=== PATIENT | female | born 1950 | race Caucasian/White ===

== ENCOUNTER 2022-10-21 09:09 | Outpatient (OUT) | payer MEDICARE, OTHER, SELFPAY ==
--- NOTE | 2022-10-21 09:16 | MM_ITS ---
Patient: JOSS WASHINGTON Exam Date: 10/21/2022 : 1950 Gender:F Ordering : DR Paolo Rai . Admission #: [id number] Family : Order #: [id number] CLICK HERE TO VIEW EXAM RADIOLOGY REPORT PROCEDURE: MM TOMOSYNTHESIS DIAGNOSTIC LT, 10/21/2022, 09:14 US BREAST LT LIMITED, 10/21/2022, 10:10 COMPARISON: [facility] DIAG W CAD, 02/08/2022. [facility] MAMM [facility] DIAG W CAD, 02/07/2021. INDICATIONS: Breast pain N64.4 Calculator Name NCI Breast Cancer Risk Assessment Tool 5 Year Breast Cancer Risk n/a% Lifetime Breast Cancer Risk n/a% Personal Breast Cancer Yes, Right lumpectomy with radiation age 66 Personal Ovarian Cancer No Treatments lumpectomy and radiation riht breast Family Cancers Mother with breast cancer at age 52; Sister with breast cancer at age 68; Sister with lung& brain cancer at age 68. LOCATION: [facility] BREAST COMPOSITION: Scattered areas fibroglandular density. FINDINGS: DIAGNOSTIC CATEGORY 2--BENIGN FINDING: LEFT BREAST: Stable 3 mm nodule versus cyst within lower-outer quadrant. No mass or architectural distortion. Ultrasound evaluation demonstrates a 3 mm benign-appearing cyst at the 4 o'clock position. No suspicious findings. RECOMMENDATIONS: ROUTINE MAMMOGRAM AND CLINICAL EVALUATION IN 12 MONTHS. PLEASE NOTE: A NORMAL MAMMOGRAM DOES NOT EXCLUDE THE POSSIBILITY OF BREAST CANCER. A CLINICALLY SUSPICIOUS PALPABLE LUMP SHOULD BE BIOPSIED. Dictated by: Brandon Lima M.D. on 10/21/2022 at 10:56 Approved by: Brandon Lima M.D. on 10/21/2022 at 11:08
== END 2022-10-21 09:10 | disposition home or self-care (01) ==
LOC: MAMMO 09:13
PROVIDERS: PCP Family Medicine; Visit Provider Family Medicine
DX: N64.4 Mastodynia (principal); Z85.3 Personal history of malignant neoplasm of breast; Z92.3 Personal history of irradiation; Z98.890 Other specified postprocedural states; Z80.3 Family history of malignant neoplasm of breast; N60.02 Solitary cyst of left breast
CPT/HCPCS: 76642; 77065; G0279

== ENCOUNTER 2023-03-28 08:11 | Outpatient (OUT) | payer MEDICARE, OTHER, SELFPAY ==
[2023-03-28 08:44] LABS: Basophils Percent Auto 0.4 % (0.2-2.0); Eosinophils Absolute Auto 0.2 10^3/uL (0.0-0.7); Eosinophils Percent Auto 3.2 % (0.9-7.0); Hemoglobin 12.6 g/dL (12.0-16.0); Immature Granulocytes Abs Auto 0.03 10^3/uL (0.00-0.03); Immature Granulocytes Pct Auto 0.4 % (0.0-0.5); Lymphocytes Absolute Auto 1.6 10^3/uL (1.2-3.8); Lymphocytes Percent Auto 22.7 % (20.5-60.0); Mean Corpuscular HGB Conc 30.7 g/dL (29.9-35.2); Mean Corpuscular Hemoglobin 29.2 pg (26.7-34.0); Mean Corpuscular Volume 95.1 fL (81.0-99.0); Mean Platelet Volume 9.2 fL (9.5-13.5); Monocytes Absolute Auto 0.4 10^3/uL (0.3-0.8); Monocytes Percent Auto 5.1 % (1.7-12.0); Neutrophils Absolute Auto 4.6 10^3/uL (1.4-6.5); Neutrophils Percent Auto 68.2 % (43.0-75.0); Platelet Count 292 10^3/uL (150-450); Red Blood Count 4.31 10^6/uL (4.20-5.40); Red Cell Distribution Width 14.3 % (11.0-15.0); White Blood Count 6.8 10^3/uL (4.0-11.0)
[2023-03-28 10:01] LABS: Estimated Average Glucose 134 mg/dL; Glycohemoglobin A1C 6.3 % (4.5-6.2)
[2023-03-28 10:57] LABS: Alanine Aminotransferase 13 U/L (14-59); Albumin Globulin Ratio 0.7; Albumin Level 3.1 g/dL (3.4-5.0); Alkaline Phosphatase 141 U/L (46-116); Anion Gap 10.8; Aspartate Amino Transferase 12 U/L (15-37); Bilirubin Total 0.4 mg/dL (0.2-1.0); Calcium 9.9 mg/dL (8.5-10.1); Carbon Dioxide 31.6 mmol/L (21.0-32.0); Chloride 106 mmol/L (98-107); Chol HDL Ratio 3.4; Cholesterol 269 mg/dL (<=200); Estimated GFR (African America >60 (>=60); Estimated GFR (Non-African Ame 55 (>=60); Free T3 2.25 pg/mL (2.18-3.98); Globulin 4.5 g/dL; Glucose 116 mg/dL (74-106); HDL Cholesterol 80 mg/dL (40-60); Potassium 4.4 mmol/L (3.5-5.1); Sodium 144 mmol/L (136-145); Thyroid Stimulating Hormone 3.864 uIU/mL (0.358-3.740); Total Protein 7.6 g/dL (6.4-8.2); Triglycerides 134 mg/dL (<=150); VLDL CHOLESTEROL 26.8 mg/dL
[2023-03-28 11:50] LABS: Free T4 0.78 ng/dL (0.76-1.46)
[2023-03-29 10:52] LABS: Occult Blood Negative
== END 2023-03-28 08:12 | disposition home or self-care (01) ==
LOC: LAB 08:13
PROVIDERS: PCP Family Medicine; Visit Provider Family Medicine
DX: D64.9 Anemia, unspecified (principal); Z79.899 Other long term (current) drug therapy; R73.09 Other abnormal glucose; E78.5 Hyperlipidemia, unspecified; E03.9 Hypothyroidism, unspecified; Z12.12 Encounter for screening for malignant neoplasm of rectum; E55.9 Vitamin D deficiency, unspecified
CPT/HCPCS: 36415; 80053; 80061; 82306; 83036; 84439; 84443; 84481; 85025; G0328

== ENCOUNTER 2023-10-24 06:58 | Outpatient (OUT) | payer MEDICARE, OTHER, SELFPAY ==
--- NOTE | 2023-10-24 07:00 | MM_ITS ---
Patient Name: JOSS WASHINGTON MR#: [id number] : 1950 Exam Date: 10/24/2023 Ordering Doctor: DR Paolo Rai . RADIOLOGY REPORT PROCEDURE: MM TOMOSYNTHESIS SCREENING BI COMPARISON: MM TOMOSYNTHESIS DIAGNOSTIC LT, 10/21/2022. MG MAMM ABHAY DIAG W CAD, 02/08/2022. MG MAMM ABHAY DIAG W CAD, 02/07/2021. MG MAMM DX 3D RT CAD, 08/14/2020. INDICATIONS: Screening Calculator Name NCI Breast Cancer Risk Assessment Tool 5 Year Breast Cancer Risk n/a% Lifetime Breast Cancer Risk n/a% Personal Breast Cancer Yes, Right lumpectomy with radiation age 66 Personal Ovarian Cancer No Treatments lumpectomy and radiation riht breast Family Cancers Mother with breast cancer at age 52; Sister with breast cancer at age 68; Sister with lung& brain cancer at age 68. LOCATION: [facility] BREAST COMPOSITION: There are scattered areas of fibroglandular density. FINDINGS: DIAGNOSTIC CATEGORY 2--BENIGN FINDING: RIGHT BREAST: No significant suspicious finding. Scattered benign-appearing calcifications are present. No significant change has occurred. LEFT BREAST: No significant suspicious finding. Scattered benign-appearing nodules are present. No significant change has occurred. RECOMMENDATIONS: ROUTINE MAMMOGRAM AND CLINICAL EVALUATION IN 12 MONTHS. PLEASE NOTE: A NORMAL MAMMOGRAM DOES NOT EXCLUDE THE POSSIBILITY OF BREAST CANCER. A CLINICALLY SUSPICIOUS PALPABLE LUMP SHOULD BE BIOPSIED. Dictated by: Brandon Lima M.D. on 10/24/2023 at 14:08 Approved by: Brandon Lima M.D. on 10/24/2023 at 14:11
--- OUTSIDE RECORDS SUMMARY | 2023-10-24 07:00 | XMS_ITS | CCD ---
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 Name Role Phone KATHERINE DOWNS Attending Unavailable GEREMIAS BERMAN Referring Unavail able CRONIN, KHALID R Attending Unavailable KATHERINE DOWNS Referring Unavailable CRONIN, KHALID R Attending Unavailable CRONIN, KHALID R Referring Unavailable SHANIQUA, JEM Attending Unavailable SHANIQUA, JEM Referring Unavailable SHANIQUA, JEM Attending Unavailable CRONIN, KHALID R Attending Unavailable CRONIN, KHALID R Referring Unavailable CRONIN, KHALID R Referring Unavailable SHANIQUA, JEM Attending Unavailable CRONIN, KHALID R Attending Unavailable CRONIN, KHALID R Referring Unavailable CRONIN, KHALID R Attending Unavailable CRONIN, KHALID R Attending Unavailable CRONIN, KHALID R Attending Unavailable CRONIN, KHALID R Attending Unavailable CRONIN, KHALID R Attending Unavailable CRONIN, KHALID R Attending Unavailable CRONIN, KHALID R Referring Unavailable CRONIN, KHALID R Attending Unavailable CRONIN, KHALID R Referring Unavailable LISA WILLAMS ([facility]) Attending Unavailabl e CRONIN, KHALID R Referring Unavailable CRONIN, KHALID R Attending Unavailable LAWRENCE RAI Referring Unavailable CRONIN, ALINALID R Attending Unavailable LAWRENCE RAI Referring Unavailable BETY, DR BRAVO Primary Care Unavailable BETY, DR BRAVO Admitting Unavailable HOY, DR BRAVO Attending Unavailable HOY, DR BRAVO Consulting Unavailable Libia Gibbs Consulting Unavailable BETY, DR BRAVO Admitting Unavailable BETY, DR BRAVO Attending Unavailable BETY, DR BRAVO Consulting Unavailable BETY, DR BRAVO Primary Care Unavailable Zieblm, DR Taylor Consulting Unavailable BETY, DR BRAVO Admitting Unavailable HOY, DR BRAVO Attending Unavailable DR LAWRENCE RAI Consulting Unavailable DR LAWRENCE RAI Primary Care Unavailable DR LAWRENCE RAI Admitting Unavailable DR LAWRENCE RAI Attending Unavailable BETY, DR BRAVO Primary Care Unavailable Problems Active Problems Problem Classification Problem Date Documented Da te Episodic/Chronic Cancer of breast (5 sources) Intraductal carcinoma in situ of right breast; Translations: [Intraductal carcinoma in situ of right breast] Onset: 08-14-2017 Chronic Diabetes mellitus without complication (1 source) Type 2 diabetes mellitus without complications; Translations: [TYPE 2 DM WITHOUT COMPLICATIONS] Onset: 12-04-2021 Chronic Essential hypertension (1 source) Essential (primary) hypertension; Translations: [ESSENTIAL PRIMARY HYPERTENSION] Onset: 12-04-2021 Chronic Other connective tissue disease (4 sources) Impingement syndrome of left shoulder; Translations: [IMPINGEMENT SYNDROME LEFT SHOULDER] Onset: 03-16-2022 Episodic Other nutritional; endocrine; and metabolic disorders (1 source) Morbid (severe) obesity due to excess calories; Translations: [MORBID SEVERE OBES D/T EXCESS ARIAS] Onset: 12-04-2021 Chronic Residual codes; unclassified (1 source) Family history of malignant neoplasm of breast; Translations: [FAMILY HX MALIG NEOPLASM OF BREAST] Onset: 02-11-2022 Episodic Residual codes; unclassified (1 source) Family history of malignant neoplasm of trachea, bronchus and lung; Translations: [FAM HX MALIG NEOPLSM TRACH BRON LNG] Onset: 02-11-2022 Episodic Residual codes; unclassified (1 source) Family history of malignant neoplasm of other organs or systems; Translations: [FAM HX MALIG NEOPLASM OTH ORGN/SYS] Onset: 02-11-2022 Episodic Past or Other Problems Problem Classification Problem Date Documented Da te Episodic/Chronic Deficiency and other anemia (1 source) Anemia, unspecified; Translations: [ANEMIA UNSPECIFIED] Onset: 12-04-2021 Episodic Diabetes mellitus without complication (1 source) Other abnormal glucose; Translations: [OTHER ABNORMAL GLUCOSE] Onset: 12-04-2021 Episodic Other nutritional; endocrine; and metabolic disorders (4 sources) Overweight; Translations: [OVERWEIGHT] Onset: 11-30-2021 Episodic Results Test Name Value Interpretation Reference Range Facility XR SHOULDER LT 2V or >on 12- 18-2022 XR SHOULDER LT 2V or > EXAM: Shoulder. HISTORY: . Impingement syndrome of shoulder region . COMPARISON: None. TECHNIQUE: 3 views FINDINGS: No fracture or dislocation of the left shoulder is noted. Glenohumeral joint is unremarkable. Early arthritic changes of the left acromioclavicular joint are noted. Surrounding soft tissues are unremarkable. IMPRESSION: 1. No acute normality of left shoulder. 2. Early arthritic changes of the left acromioclavicular joint. Electronically authenticated by: LIBIA GIBBS Date: 2022-03-17 13:[address] [facility] MG MAMM ABHAY DIAG W CADon MG MAMM ABHAY DIAG W CAD Patient: JOSS WASHINGTON Exam Date: 02/08/2022 : 1950 Gender:F Ordering : DR LAWRENCE RAI . Admission #: [id number] Family : Order #: [id number] CLICK HERE TO VIEW EXAM RADIOLOGY REPORT PROCEDURE: MAMMOGRAM BILATERAL DIAGNOSTIC DIGITAL WITH COMPUTER AIDED DETECTION COMPARISON: MG MAMM DX 3D RT CAD, 08/14/2020. MAMMO POST BIOPSY RIGHT, 02/14/2020. MG MAMM SCREEN ABHAY W CAD, 06/06/2017. MG MAMM ABHAY DIAG W CAD, 02/07/2021. INDICATIONS: Primary malignant neoplasm of female right breast Calculator Name NCI Breast Cancer Risk Assessment Tool 5 Year Breast Cancer Risk n/a% Lifetime Breast Cancer Risk n/a% Personal Breast Cancer Yes, Right lumpectomy with radiation age 66 Personal Ovarian Cancer No Treatments lumpectomy and radiation riht breast Family Cancers Mother with breast cancer at age 52; Sister with breast cancer at age 68; Sister with lungAND brain cancer at age 68. LOCATION: [facility] BREAST COMPOSITION: Scattered areas fibroglandular density. FINDINGS: DIAGNOSTIC CATEGORY 2--BENIGN FINDING: RIGHT BREAST: No significant suspicious finding. Stable previously biopsied lesion and biopsy changes within upper inner quadrant. Scattered benign-appearing calcifications are present. No significant change has occurred. LEFT BREAST: No significant suspicious finding. No significant change has occurred. RECOMMENDATIONS: ROUTINE MAMMOGRAM AND CLINICAL EVALUATION IN 12 MONTHS. PLEASE NOTE: A NORMAL MAMMOGRAM DOES NOT EXCLUDE THE POSSIBILITY OF BREAST CANCER. A CLINICALLY SUSPICIOUS PALPABLE LUMP SHOULD BE BIOPSIED. Dictated by: Brandon Lima M.D. on 02/08/2022 at 08:43 Approved by: Brandon Lima M.D. on 02/08/2022 at 08:46 Normal [facility] T4, T3U, FTI LABCORPon 12-01 Free Thyroxine Index 1.7 Normal 1.2-4.9 [facility] Comment on above: Performed By: #### T HYLC #### [facility] [address] [place] [address] Dr. Sheldon Cordero T3 Uptake 27 % Normal 24-[address] [facility] Comment on above: Performed By: #### T HYLC #### [facility] [address] [place] [address] Dr. Sheldon Cordero T4 [Mass/Vol] 6.4 ug/dL Normal 4.5-12.0 [facility] Comment on above: Performed By: #### T HYLC #### [facility] [address] [place] [address] Dr. Sheldon Cordero CBC AUTO DIFFon 11-30-2021 BASO # 0.1 103/ul Normal 0.0-0.1 [facility] Comment on above: Performed By: #### C BC #### [facility] [address] [place] [address] Dr. Sheldon Cordero Basophils/100 WBC (Bld) 0.8 % Normal 0.2-2.0 [facility] Comment on above: Performed By: #### C BC #### [facility] [address] [place] [address] Dr. Sheldon Cordero EO # 0.3 103/ul Normal 0.0-0.7 [facility] Comment on above: Performed By: #### C BC #### [facility] [address] [place] [address] Dr. Sheldon Cordero Eosinophils/100 WBC (Bld) 3.8 % Normal 0.9-7.0 [facility] Comment on above: Performed By: #### C BC #### [facility] [address] [place] [address] Dr. Sheldon Cordero Erythrocyte distribution width (RBC) [Ratio] 14.6 % Normal 11.0-15.0 [facility] Comment on above: Performed By: #### C BC #### [facility] [address] [place] [address] Dr. Sheldon Cordero Hematocrit (Bld) [Volume fraction] 39.3 % Normal 36.0-48.0 [facility] Comment on above: Performed By: #### C BC #### [facility] [address] [place] [address] Dr. Sheldon Cordero Hemoglobin (Bld) [Mass/Vol] 12.4 g/dL Normal 12.0-16.0 [facility] Comment on above: Performed By: #### C BC #### [facility] [address] [place] [address] Dr. Sheldon Cordero IG # 0.08 10e3/ul Critically high 0.00-0.03 [facility] Comment on above: Performed By: #### C BC #### [facility] [address] [place] [address] Dr. Sheldon Cordero IG % 1.1 % Critically high 0.0-0.5 [facility] Comment on above: Performed By: #### C BC #### [facility] [address] [place] [address] Dr. Sheldon Cordero LYMPH # 1.8 103/ul Normal 1.2-3.8 [facility] Comment on above: Performed By: #### C BC #### [facility] [address] [place] [address] Dr. Sheldon Cordero Lymphocytes/100 WBC (Bld) 25.1 % Normal 20.5-60.0 [facility] Comment on above: Performed By: #### C BC #### [facility] [address] [place] [address] Dr. Sheldon Cordero MANUAL DIFF REQ NO Normal [facility] Comment on above: Performed By: #### C BC #### [facility] [address] [place] [address] Dr. Sheldon Cordero MCH (RBC) [Entitic mass] 29.6 pg Normal 26.7-34.0 [facility] Comment on above: Performed By: #### C BC #### [facility] [address] [address] [address] Sheldon Cordero MCHC (RBC) [Mass/Vol] 31.6 g/dL Normal 29.9-35.2 [facility] Comment on above: Performed By: #### C BC #### [facility] [address] [address] [address] Sheldon Cordero MCV (RBC) [Entitic vol] 93.8 fL Normal 81.0-99.0 [facility] Comment on above: Performed By: #### C BC #### [facility] [address] [address] [address] Sheldon Cordero MONO # 0.4 103/ul Normal 0.3-0.8 [facility] Comment on above: Performed By: #### C BC #### [facility] [address] [address] [address] Sheldon Cordero Monocytes/100 WBC (Bld) 5.8 % Normal 1.7-12.0 [facility] Comment on above: Performed By: #### C BC #### [facility] [address] [address] [address] Sheldon Cordero NEUT # 4.6 103/ul Normal 1.4-6.5 [facility] Comment on above: Performed By: #### C BC #### [facility] [address] [address] [address] Sheldon Cordero Neutrophils/100 WBC (Bld) 63.4 % Normal 43.0-75.[address] [facility] Comment on above: Performed By: #### C BC #### [facility] [address] [address] [address] Sheldon Cordero Platelet mean volume (Bld) [Entitic vol] 8.9 fL Critically low 9.5-13.5 [facility] Comment on above: Performed By: #### C BC #### [facility] [address] [address] [address] Sheldon Cordero PLT 277 103/ul Normal 150-[address] [facility] Comment on above: Performed By: #### C BC #### [facility] [address] [address] [address] Sheldon Cordero RBC 4.19 106/ul Critically low 4.20-5.40 [facility] Comment on above: Performed By: #### C BC #### [facility] [address] [place] [address] Dr. Sheldon Cordero WBC 7.2 103/ul Normal 4.0-11.0 [facility] Comment on above: Performed By: #### C BC #### [facility] [address] [place] [address] Dr. Sheldon Cordero GLYCOHEMOGLOBIN A1Con 2021 ADA RECOMMENDATION SEE BELOW Normal [facility] Comment on above: Result Comment: ADA RECOMMENDED LIMIT 4.0 - 6.0 ADA THERAPEUTIC TARGET < 7.0 ACTION SUGGESTED > 7.0 Performed By: #### A 1C #### [facility] [address] [place] [address] Dr. Sheldon Cordero Glucose [Mass/Vol] 128 mg/dL Normal [facility] Comment on above: Performed By: #### A 1C #### [facility] [address] [place] [address] Dr. Sheldon Cordero HbA1c (Bld) [Mass fraction] 6.1 % Normal 4.5-6.2 [facility] Comment on above: Performed By: #### A 1C #### [facility] [address] [place] [address] Dr. Sheldon Cordero IRONon 11-30-2021 Iron [Mass/Vol] 58.0 ug/dL Normal 50.0-170.0 [facility] Comment on above: Performed By: #### I GERMAN #### [facility] [address] [place] [address] Dr. Sheldon Cordero LIPID PROFILEon 11-30-2021 CHOL-HDL RATIO NORM SEE BELOW Normal [facility] Comment on above: Result Comment: 3.3 - 4.4 LOW RISK 4.4 - 7.1 AVERAGE RISK 7.1 - 11.0 MODERATE RISK >11.0 HIGH RISK Performed By: #### L IPID, TSH, CMP #### [facility] [address] [address] [address] Sheldon Cordero Cholesterol [Mass/Vol] 251 mg/dL Critically high <=200 [facility] Comment on above: Performed By: #### L IPID, TSH, CMP #### [facility] [address] [address] [address] Sheldon Cordero Cholesterol in HDL [Mass/Vol] 70 mg/dL Critically high 40-60 [facility] Comment on above: Performed By: #### L IPID, TSH, CMP #### [facility] [address] [address] [address] Sheldon Cordero Cholesterol in LDL [Mass/Vol] 161.4 mg/dL Normal [facility] Comment on above: Performed By: #### L IPID, TSH, CMP #### [facility] [address] [address] [address] Sheldon Cordero Cholesterol.total/Ch olesterol in HDL [Mass ratio] 3.6 {ratio} Normal [facility] Comment on above: Performed By: #### L IPID, TSH, CMP #### [facility] [address] [address] [address] Sheldon Cordero HDL NORMAL > or = 60 mg/dl - LO W CARDIOVASCULAR RISK <40 mg/dl - HIGH CARDIOVASCULAR RISK Normal [facility] Comment on above: Performed By: #### L IPID, TSH, CMP #### [facility] [address] [address] [address] Sheldon Cordero LDL CALC NORMAL SEE BELOW Normal [facility] Comment on above: Result Comment: <100 mg/dl OPTIMAL 100 - 129 mg/dl NEAR OR ABOVE OPTIMAL 130 - 159 mg/dl BORDERLINE HIGH 160 - 189 mg/dl HIGH >190 mg/dl VERY HIGH Performed By: #### L IPID, TSH, CMP #### [facility] [address] [address] [address] Sheldon Cordero Triglyceride [Mass/Vol] 98 mg/dL Normal <=150 [facility] Comment on above: Performed By: #### L IPID, TSH, CMP #### [facility] [address] [address] [address] Shledon Cordero VLDL CALC 19.6 mg/dL Normal [facility] Comment on above: Performed By: #### L IPID, TSH, CMP #### [facility] [address] [address] [address] Sheldon Cordero PROF 14(COMP METB)on 022 Albumin [Mass/Vol] 3.4 g/dL Normal 3.4-5.[address] [facility] Comment on above: Performed By: #### L IPID, TSH, CMP #### [facility] [address] [address] [address] Sheldon Cordero Albumin/Globulin [Mass ratio] 0.9 {ratio} Normal [facility] Comment on above: Performed By: #### L IPID, TSH, CMP #### [facility] [address] [address] [address] Sheldon Cordero ALP [Catalytic activity/Vol] 107 U/L Normal 46-116 [facility] Comment on above: Performed By: #### L IPID, TSH, CMP #### [facility] [address] [address] [address] Sheldon Cordero ALT [Catalytic activity/Vol] 17 U/L Normal 14-59 [facility] Comment on above: Performed By: #### L IPID, TSH, CMP #### [facility] [address] [address] [address] Sheldon Cordero Anion gap [Moles/Vol] 10.9 mmol/L Normal [facility] Comment on above: Performed By: #### L IPID, TSH, CMP #### [facility] [address] [address] [address] Sheldon Cordero AST [Catalytic activity/Vol] 11 U/L Critically low 15-37 [facility] Comment on above: Performed By: #### L IPID, TSH, CMP #### [facility] [address] [address] [address] Sheldon Cordero Bilirubin [Mass/Vol] 0.3 mg/dL Normal 0.2-1.0 [facility] Comment on above: Performed By: #### L IPID, TSH, CMP #### [facility] [address] [address] [address] Sheldon Cordero Calcium [Mass/Vol] 9.1 mg/dL Normal 8.5-10.[address] [facility] Comment on above: Performed By: #### L IPID, TSH, CMP #### [facility] [address] [place] [address] Dr. Sheldon Cordero Chloride [Moles/Vol] 106 mmol/L Normal 98-107 [facility] Comment on above: Performed By: #### L IPID, TSH, CMP #### [facility] [address] [place] [address] Dr. Sheldon Cordero CO2 [Moles/Vol] 30.6 mmol/L Normal 21.0-32.0 [facility] Comment on above: Performed By: #### L IPID, TSH, CMP #### [facility] [address] [place] [address] Dr. Sheldon Cordero Creatinine [Mass/Vol] 0.93 mg/dL Normal 0.55-1.02 [facility] Comment on above: Performed By: #### L IPID, TSH, CMP #### [facility] [address] [place] [address] Dr. Sheldon Cordero EGFR-AF BAHAMIAN >60 Normal >=60 [facility] Comment on above: Performed By: #### L IPID, TSH, CMP #### [facility] [address] [place] [address] Dr. Sheldon Cordero EGFR-NON AF BAHAMIAN =60 Normal >=60 [facility] Comment on above: Performed By: #### L IPID, TSH, CMP #### [facility] [address] [place] [address] Dr. Sheldon Cordero Globulin (S) [Mass/Vol] 4.0 g/dL Normal [facility] Comment on above: Performed By: #### L IPID, TSH, CMP #### [facility] [address] [place] [address] Dr. Sheldon Cordero Glucose [Mass/Vol] 101 mg/dL Normal 74-[address] [facility] Comment on above: Performed By: #### L IPID, TSH, CMP #### [facility] [address] [place] [address] Dr. Sheldon Cordero Potassium [Moles/Vol] 4.5 mmol/L Normal 3.5-5.1 [facility] Comment on above: Performed By: #### L IPID, TSH, CMP #### [facility] [address] [address] [address] Sheldon Cordero Protein [Mass/Vol] 7.4 g/dL Normal 6.4-8.2 [facility] Comment on above: Performed By: #### L IPID, TSH, CMP #### [facility] [address] [place] [address] Dr. Sheldon Cordero Sodium [Moles/Vol] 143 mmol/L Normal 136-[address] [facility] Comment on above: Performed By: #### L IPID, TSH, CMP #### [facility] [address] [place] [address] Dr. Sheldon Cordero Urea nitrogen [Mass/Vol] 18.0 mg/dL Normal 7.0-18.0 [facility] Comment on above: Performed By: #### L IPID, TSH, CMP #### [facility] [address] [place] [address] Dr. Sheldon Cordero Urea nitrogen/Creatinine [Mass ratio] 19.4 mg/mg Normal [facility] Comment on above: Performed By: #### L IPID, TSH, CMP #### [facility] [address] [place] [address] Dr. Sheldon Cordero TSHon 11-30-2021 TSH 2.774 uIU/mL Normal 0.358-3.740 [facility] Comment on above: Performed By: #### L IPID, TSH, CMP #### [facility] [address] [place] [address] Dr. Sheldon Cordero Lactic Acidon 11-02-2018 Lactate [Mass/Vol] 7.5 mg/dL Normal 4.5-19.8 [facility] Comment on above: Performed By: #### 2 [id number] #### [facility] [address] [address] CNOVon 06-11-2018 CNOV Office Visit (RADTSA ) JOSS WASHINGTON ([id number]) 1950 F Date Time Provider Department 06/11/18 10:30 AM FARHEEN CRONIN During your visit today, we recorded the following information about you: Pulse Respiration Blood pressure Weight 93/minute 22/minute 156/74 132 kg Farheen Cronin MD 06/11/2018 2:48 PM Signed Radiation Oncology - Follow Up Note PATIENT NAME: Joss Washington PATIENT DIAGNOSIS: ?DCIS of the Right breast, UIQ, 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 ? INTERVAL HISTORY: Mrs. Washington is doing very well. ?Her appetite is good and she is maintaining her weight. ALLERGIES No Known Allergies MEDICATIONS: VENTOLIN HFA 90 mcg/actuation inhaler citalopram (CELEXA) 40 mg tablet Take 40 mg by mouth once daily. diltiazem (CARDIZEM) 120 mg tablet Take 120 mg by mouth three times daily. lisinopril (ZESTRIL, PRINIVIL) 10 mg tablet Take 10 mg by mouth once daily. Multivitamins chew Take by mouth. PHYSICAL EXAM: VS: BP 156/74 Pulse 93 Resp 22 Wt 132 kg (291 lb) SpO2 94% BMI 51.56 kg/m? KPS: 90 General Appearance: Alert and oriented. No acute distress. HEENT: NCAT. Sclera anicteric. PERRL. EOMI. Neck: Normal ROM. No palpable cervical or supraclavicular adenopathy. Chest: No respiratory distress. Lungs clear to auscultation bilaterally. Heart: Regular rate and rhythm. Abdomen: Soft. Nontender. Nondistended. Musculoskeletal: No edema. Normal ROM in extremities. No bone or spine tenderness. Neuro: Strength intact and symmetric. Sensation intact. CN II-XII intact. Gait normal. No focal deficits. Skin: Skin reaction in the right breast is improving. Lymphatics: No palpable lymphadenopathy. Breasts: No masses are palpable. ? ASSESSMENT AND PLAN: There is no evidence of active disease at this time. ?I'll repeat bilateral diagnostic mammogram later this month. I will see her again in 4 months?for follow-up examination. ? Signed by: Farheen Cronin M.D., FACRO ? cc: Lawrence Rai MD [address] [place] [id number] ? Katherine Downs MD [facility] [address] [place] [address] ? Dr. Berman ? This note was dictated with Dragon Naturally Speaking and may contain some grammatical errors due to limitations of the software. Dexter De León RN, was present in the examination room throughout the encounter. Referring Provider: LAWRENCE RAI [[id number]] Allergies As of Date: 06/11/2018 (No Known Allergies) Date Reviewed: 06/11/2018 Reviewed by: Dexetr (Rn) CLARA De León - Fully Assessed Reason for Visit: Breast Cancer [519] Primary Visit Diagnosis:Ductal carcinoma in situ (DCIS) of right breast [D05.11] Order(s):[facility] [[id number]] Order #: [id number] FUTURE Prescriptions as of 06/11/2018 Sig: VENTOLIN HFA 90 MCG/ACTUATION* CITALOPRAM 40 MG TABLET Take 40 mg by mouth once evangelina* DILTIAZEM 120 MG TABLET Take 120 mg by mouth three ti* LISINOPRIL 10 MG TABLET Take 10 mg by mouth once evangelina* MULTIVITAMIN CHEWABLE TABLET Take by mouth. Problem List As Of Date 06/11/2018 Noted Resolved Ductal carcinoma in situ (DCIS) of right breast*INVALID FOR* Disposition: Return in about 4 months (around 10/11/2018). Follow-up and Disposition History Recorded Encounter Status:Closed by FARHEEN CRONIN MD on 06/11/18 Normal [facility] PROGRESSon 06-11-2018 Protein mass conc HNO ID: [id number] Author: Farheen Cronin Service: ? 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 ? INTERVAL HISTORY: Mrs. Washington is doing very well. ?Her appetite is good and she is maintaining her weight. ALLERGIES No Known Allergies MEDICATIONS: VENTOLIN HFA 90 mcg/actuation inhaler citalopram (CELEXA) 40 mg tablet Take 40 mg by mouth once daily. diltiazem (CARDIZEM) 120 mg tablet Take 120 mg by mouth three times daily. lisinopril (ZESTRIL, PRINIVIL) 10 mg tablet Take 10 mg by mouth once daily. Multivitamins chew Take by mouth. PHYSICAL EXAM: VS: BP 156/74 Pulse 93 Resp 22 Wt 132 kg (291 lb) SpO2 94% BMI 51.56 kg/m? KPS: 90 General Appearance: Alert and oriented. No acute distress. HEENT: NCAT. Sclera anicteric. PERRL. EOMI. Neck: Normal ROM. No palpable cervical or supraclavicular adenopathy. Chest: No respiratory distress. Lungs clear to auscultation bilaterally. Heart: Regular rate and rhythm. Abdomen: Soft. Nontender. Nondistended. Musculoskeletal: No edema. Normal ROM in extremities. No bone or spine tenderness. Neuro: Strength intact and symmetric. Sensation intact. CN II-XII intact. Gait normal. No focal deficits. Skin: Skin reaction in the right breast is improving. Lymphatics: No palpable lymphadenopathy. Breasts: No masses are palpable. ? ASSESSMENT AND PLAN: There is no evidence of active disease at this time. ?I'll repeat bilateral diagnostic mammogram later this month. I will see her again in 4 months?for follow-up examination. ? Signed by: Farheen Cronin M.D., [facility] ? cc: Lawrence Rai MD [address] [place] [id number] ? Katherine Downs MD [facility] [address] [place] [address] ? Dr. Berman ? This note was dictated with Dragon Naturally Speaking and may contain some grammatical errors due to limitations of the software. Dexter De León RN, was present in the examination room throughout the encounter. 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 ? INTERVAL HISTORY: Mrs. Washington is doing very well. ?Her appetite is good and she is maintaining her weight. ALLERGIES No Known Allergies MEDICATIONS: VENTOLIN HFA 90 mcg/actuation inhaler citalopram (CELEXA) 40 mg tablet Take 40 mg by mouth once daily. diltiazem (CARDIZEM) 120 mg tablet Take 120 mg by mouth three times daily. lisinopril (ZESTRIL, PRINIVIL) 10 mg tablet Take 10 mg by mouth once daily. Multivitamins chew Take by mouth. PHYSICAL EXAM: VS: BP 149/64 Pulse 87 Resp 20 Wt 132.5 kg (292 lb) SpO2 93% BMI 51.74 kg/m? KPS: 90 General Appearance: Alert and oriented. No acute distress. HEENT: NCAT. Sclera anicteric. PERRL. EOMI. Neck: Normal ROM. No palpable cervical or supraclavicular adenopathy. Chest: No respiratory distress. Lungs clear to auscultation bilaterally. Heart: Regular rate and rhythm. Abdomen: Soft. Nontender. Nondistended. Musculoskeletal: No edema. Normal ROM in extremities. No bone or spine tenderness. Neuro: Strength intact and symmetric. Sensation intact. CN II-XII intact. Gait normal. No focal deficits. Skin: Skin reaction in the right breast is improving. Lymphatics: No palpable lymphadenopathy. Breasts: No masses are palpable. She still has areas of dry desquamation. ? ASSESSMENT AND PLAN: There is no evidence of active disease at this time. ?I advised her to use any moisturizing cream over the right breast. I will see her again in 4 months for follow-up examination. ? Signed by: Farheen Cronin M.D., [facility] ? cc: Larwence Rai MD [address] [place] [address] ? Katherine Downs MD [facility] [address] [place] [address] ? Dr. Berman ? This note was dictated with Jazmin Naturally Speaking and may contain some grammatical errors due to limitations of the software. Dexter De León RN, was present in the examination room throughout the encounter. Referring Provider: LAWRENCE RAI [[id number]] Allergies As of Date: 02/12/2018 (No Known Allergies) Date Reviewed: 02/12/2018 Reviewed by: Dexter (Clara) CLARA De León - Fully Assessed Reason for Visit: Breast Cancer [519] Primary Visit Diagnosis:Ductal carcinoma in situ (DCIS) of right breast [D05.11] Prescriptions as of 02/12/2018 Sig: VENTOLIN HFA 90 MCG/ACTUATION* CITALOPRAM 40 MG TABLET Take 40 mg by mouth once evangelina* DILTIAZEM 120 MG TABLET Take 120 mg by mouth three ti* LISINOPRIL 10 MG TABLET Take 10 mg by mouth once evangelina* MULTIVITAMIN CHEWABLE TABLET Take by mouth. Problem List As Of Date 02/12/2018 Noted Resolved Ductal carcinoma in situ (DCIS) of right breast*INVALID FOR* Disposition: Return in about 4 months (around 06/12/2018). Follow-up and Disposition History Recorded Encounter Status:Closed by FARHEEN CRONIN MD on 02/12/18 [facility] PROGRESSon 02-12-2018 Protein mass conc HNO ID: [id number] Author: Farheen Cronin Service: (none) Author Type: Physician Type: Progress Notes Filed: 02/12/2018 10:40 AM Note Text: Radiation Oncology - Follow Up Note PATIENT NAME: Joss Washington PATIENT DIAGNOSIS: ?DCIS of the Right breast, UIQ, 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 ? INTERVAL HISTORY: Mrs. Washington is doing very well. ?Her appetite is good and she is maintaining her weight. ALLERGIES No Known Allergies MEDICATIONS: VENTOLIN HFA 90 mcg/actuation inhaler citalopram (CELEXA) 40 mg tablet Take 40 mg by mouth once daily. diltiazem (CARDIZEM) 120 mg tablet Take 120 mg by mouth three times daily. lisinopril (ZESTRIL, PRINIVIL) 10 mg tablet Take 10 mg by mouth once daily. Multivitamins chew Take by mouth. PHYSICAL EXAM: VS: BP 149/64 Pulse 87 Resp 20 Wt 132.5 kg (292 lb) SpO2 93% BMI 51.74 kg/m? KPS: 90 General Appearance: Alert and oriented. No acute distress. HEENT: NCAT. Sclera anicteric. PERRL. EOMI. Neck: Normal ROM. No palpable cervical or supraclavicular adenopathy. Chest: No respiratory distress. Lungs clear to auscultation bilaterally. Heart: Regular rate and rhythm. Abdomen: Soft. Nontender. Nondistended. Musculoskeletal: No edema. Normal ROM in extremities. No bone or spine tenderness. Neuro: Strength intact and symmetric. Sensation intact. CN II-XII intact. Gait normal. No focal deficits. Skin: Skin reaction in the right breast is improving. Lymphatics: No palpable lymphadenopathy. Breasts: No masses are palpable. She still has areas of dry desquamation. ? ASSESSMENT AND PLAN: There is no evidence of active disease at this time. ?I advised her to use any moisturizing cream over the right breast. I will see her again in 4 months for follow-up examination. ? Signed by: Farheen Cronin M.D., [facility] ? cc: Lawrence Rai MD [address] [place] [id number] ? Katherine Downs MD [facility] [address] [place] [address] ? Dr. Berman ? This note was dictated with Dragon Naturally Speaking and may contain some grammatical errors due to limitations of the software. Dexter De León RN, was present in the examination room throughout the encounter. [facility] PROGRESSon 12-10-2017 Protein mass conc HNO ID: [id number] Author: Lisa (Mattie) Екатерина Service: (none) Author Type: Nurse Practitioner Type: Progress Notes Filed: 12/10/2017 1:24 PM Note Text: GEMINI Joss Washington is a 67 year old female who presented in consultation on August 14, 2017 with ductal carcinoma in situ. She was taken to surgery by Dr. Berman for a mammographic abnormality and found to have ductal carcinoma in situ. She was referred here for consideration of adjuvant therapy. She has no history of breast cancer. The cancer is ER positive. Joss Washington is here today for her treatment summary and survivorship care plan visit. She completed radiation on October 15, 2017. She tolerated radiation treatment well. She offers no particular complaints today. Overall she feels extremely well. PAST MEDICAL HISTORY Diagnosis Date - Anxiety - Chronic fatigue - DCIS (ductal carcinoma in situ) of breast 06/[address] Berman - Depression - Diabetes (HCC) - Diverticulitis - Eczema - Hypertension - Obesity PAST SURGICAL HISTORY Procedure Laterality Date - BREAST LUMPECTOMY HX 06/2017 right breast - CHOLECYSTECTOMY HX - CYSTOCELE REPAIR - HERNIA REPAIR HX - PAST SURGICAL HISTORY OF right rotator cuff - TONSILLECTOMY HX - TOTAL ABDOM HYSTERECTOMY FAMILY HISTORY Problem Relation Age of Onset - Cancer Mother Current Outpatient Prescriptions: VENTOLIN HFA 90 mcg/actuation inhaler citalopram (CELEXA) 40 mg tablet Take 40 mg by mouth once daily. diltiazem (CARDIZEM) 120 mg tablet Take 120 mg by mouth three times daily. lisinopril (ZESTRIL, PRINIVIL) 10 mg tablet Take 10 mg by mouth once daily. Multivitamins chew Take by mouth. No current facility-administered medications for this visit. ALLERGIES No Known Allergies REVIEW OF SYSTEMS General: No weight loss, malaise or fevers., SEE HPI HEENT: Negative for frequent or significant headaches. No changes in hearing or vision, no nose bleeds or other nasal problems. Neck: Negative for lumps, goiter, pain and significant neck swelling Respiratory: Negative for cough, wheezing or shortness of breath. Cardiovascular: Negative for chest pain, leg swelling or palpitations. GI: Negative for abdominal discomfort, blood in stools or black stools or change in bowel habits. Musculoskeletal: Negative for joint pain or swelling, back pain or muscle pain. Skin: Negative for lesions, rash and itching. Psych: Negative for sleep disturbance, mood disorder and recent psychosocial stressors. Hematology/Lymphology: Negative for prolonged bleeding, bruising easily or swollen nodes. Neuro: No history of headaches, syncope, paralysis, seizures or tremors. All other reviewed and negative other than HPI. PHYSICAL EXAM: BP 141/73 Pulse 72 Temp 36.8 ?C (98.3 ?F) Resp 16 Wt 132 kg (291 lb) BMI 51.56 kg/m? General Appearance: Alert and oriented, appearing in no acute distress. Skin: Skin color, texture, turgor normal, no suspicious rashes or lesions. Head: Normal. Eyes: Anicteric sclera. Pupils are equally round. Extraocular movements are intact. Ears: External ears normal Neck: Supple, no adenopathy; thyroid symmetric, normal size, no bruits. Back: No pain with ambulation Lungs: Good air exchange overall Heart: RRR Abdomen: No obvious evidence of rebound tenderness or guarding. Extremities: Extremities normal. No deformities, edema, or skin discoloration. Good capillary refill. Musculoskeletal: Spine range of motion normal. Muscular strength intact. Peripheral Pulses: Normal. Neurologic: Gait normal. No gross cerebellar defects. Psychiatric: The patient has an appropriate affect. ASSESSMENT/PLAN: 1. Ductal carcinoma in situ (DCIS) of right breast - ICD9: 233.0, ICD10: D05.11 Patient has had excision of ductal carcinoma in situ, with the size of tumor at least 2 mm, in minute quantities. The cancer is ER positive. In my opinion, given her age I would not recommend to her adjuvant hormonal therapy as it has not been definitively shown that there is a survival benefit with hormonal therapy in this situation and given the patient's age older than 60, my concern that the risk/ benefit analysis of adjuvant hormonal therapy may potentially be higher in the risk and side effects of hormonal therapy. I will not recommend to her hormonal therapy. Patient was given treatment summary and survivorship care plan. >50% 15 minutes was spent on counseling and coordination of care. Patient will continue to follow with Dr. Harry as scheduled. Since patient was not started on adjuvant hormonal therapy, she will not need to follow with Dr. Downs at this time. Lisa Willams APRN.[employer] [facility] CNOVon 12-04-2017 CNOV Office Visit (RADTSA ) JOSS WASHINGTON ([id number]) 1950 F Date Time Provider Department 12/04/17 10:30 AM FARHEEN CRONIN During your visit today, we recorded the following information about you: Temperature Pulse Respiration Blood pressure 98.3 degrees 72/minute 16/minute 141/73 Weight Height 132 kg 1.6 m Farheen Cronin MD 12/04/2017 1:55 PM Signed Radiation Oncology - Follow Up Note PATIENT NAME: Joss Washington PATIENT DIAGNOSIS: DCIS of the Right breast, UIQ, 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 ? INTERVAL HISTORY: Mrs. Washington is doing very well. Her appetite is good and she is maintaining her weight. ALLERGIES No Known Allergies MEDICATIONS: VENTOLIN HFA 90 mcg/actuation inhaler citalopram (CELEXA) 40 mg tablet Take 40 mg by mouth once daily. diltiazem (CARDIZEM) 120 mg tablet Take 120 mg by mouth three times daily. lisinopril (ZESTRIL, PRINIVIL) 10 mg tablet Take 10 mg by mouth once daily. Multivitamins chew Take by mouth. PHYSICAL EXAM: VS: BP 141/73 Pulse 72 Temp 36.8 ?C (98.3 ?F) (Oral) Resp 16 Ht 160 cm (5' 2.99 ) Wt 132 kg (291 lb) SpO2 99% BMI 51.56 kg/m? KPS: 90 General Appearance: Alert and oriented. No acute distress. HEENT: NCAT. Sclera anicteric. PERRL. EOMI. Neck: Normal ROM. No palpable cervical or supraclavicular adenopathy. Chest: No respiratory distress. Lungs clear to auscultation bilaterally. Heart: Regular rate and rhythm. Abdomen: Soft. Nontender. Nondistended. Musculoskeletal: No edema. Normal ROM in extremities. No bone or spine tenderness. Neuro: Strength intact and symmetric. Sensation intact. CN II-XII intact. Gait normal. No focal deficits. Skin: Skin reaction in the right breast is improving. Lymphatics: No palpable lymphadenopathy. Breasts: No masses are palpable. ? ASSESSMENT AND PLAN: There is no evidence of active disease at this time. I will see her again in 2 months for follow-up examination. ? Signed by: Farheen Cronin M.D., [facility] ? cc: Lawrence Rai MD [facility] [place] [address] ? Katherine Downs MD [facility] [address] [place] [address] ? Dr. Berman ? This note was dictated with Radhaon Naturally Speaking and may contain some grammatical errors due to limitations of the software. Anatoliy Ha MA was present in the examination room throughout the encounter. Referring Provider: FARHEEN CRONIN [[id number]] Allergies As of Date: 12/04/2017 (No Known Allergies) Date Reviewed: 12/04/2017 Reviewed by: Anatoliy (Flo) CLARA Ha - Fully Assessed Reason for Visit: Breast Cancer [519] Follow Up [171] Primary Visit Diagnosis:Ductal carcinoma in situ (DCIS) of right breast [D05.11] Prescriptions as of 12/04/2017 Sig: VENTOLIN HFA 90 MCG/ACTUATION* CITALOPRAM 40 MG TABLET Take 40 mg by mouth once evangelina* DILTIAZEM 120 MG TABLET Take 120 mg by mouth three ti* LISINOPRIL 10 MG TABLET Take 10 mg by mouth once evangelina* MULTIVITAMIN CHEWABLE TABLET Take by mouth. Problem List As Of Date 12/04/2017 Noted Resolved Ductal carcinoma in situ (DCIS) of right breast*INVALID FOR* Disposition: Return in about 2 months (around 02/03/2018). Follow-up and Disposition History Recorded Encounter Status:Closed by FARHEEN CRONIN MD on 12/04/17 [facility] CNOVSPon 12-04-2017 CNOVSP Visit (SP) Office (HEMASA) JOSS WASHINGTON ([id number]) 1950 F Date Time Provider Department 12/04/17 11:00 AM LISA WILLAMS ([employer]) CHRISS During your visit today, we recorded the following information about you: Temperature Pulse Respiration Blood pressure 98.3 degrees 72/minute 16/minute 141/73 Weight 132 kg Lisa Willams APRN.MATTIE 12/10/2017 1:24 PM Signed HPI Joss Washington is a 67 year old female who presented in consultation on August 14, 2017 with ductal carcinoma in situ. She was taken to surgery by Dr. Berman for a mammographic abnormality and found to have ductal carcinoma in situ. She was referred here for consideration of adjuvant therapy. She has no history of breast cancer. The cancer is ER positive. Joss Washington is here today for her treatment summary and survivorship care plan visit. She completed radiation on October 15, 2017. She tolerated radiation treatment well. She offers no particular complaints today. Overall she feels extremely well. PAST MEDICAL HISTORY Diagnosis Date - Anxiety - Chronic fatigue - DCIS (ductal carcinoma in situ) of breast 06/[address] Berman - Depression - Diabetes (HCC) - Diverticulitis - Eczema - Hypertension - Obesity PAST SURGICAL HISTORY Procedure Laterality Date - BREAST LUMPECTOMY HX 06/2017 right breast - CHOLECYSTECTOMY HX - CYSTOCELE REPAIR - HERNIA REPAIR HX - PAST SURGICAL HISTORY OF right rotator cuff - TONSILLECTOMY HX - TOTAL ABDOM HYSTERECTOMY FAMILY HISTORY Problem Relation Age of Onset - Cancer Mother Current Outpatient Prescriptions: VENTOLIN HFA 90 mcg/actuation inhaler citalopram (CELEXA) 40 mg tablet Take 40 mg by mouth once daily. diltiazem (CARDIZEM) 120 mg tablet Take 120 mg by mouth three times daily. lisinopril (ZESTRIL, PRINIVIL) 10 mg tablet Take 10 mg by mouth once daily. Multivitamins chew Take by mouth. No current facility-administered medications for this visit. ALLERGIES No Known Allergies REVIEW OF SYSTEMS General: No weight loss, malaise or fevers., SEE HPI HEENT: Negative for frequent or significant headaches. No changes in hearing or vision, no nose bleeds or other nasal problems. Neck: Negative for lumps, goiter, pain and significant neck swelling Respiratory: Negative for cough, wheezing or shortness of breath. Cardiovascular: Negative for chest pain, leg swelling or palpitations. GI: Negative for abdominal discomfort, blood in stools or black stools or change in bowel habits. Musculoskeletal: Negative for joint pain or swelling, back pain or muscle pain. Skin: Negative for lesions, rash and itching. Psych: Negative for sleep disturbance, mood disorder and recent psychosocial stressors. Hematology/Lymphology: Negative for prolonged bleeding, bruising easily or swollen nodes. Neuro: No history of headaches, syncope, paralysis, seizures or tremors. All other reviewed and negative other than HPI. PHYSICAL EXAM: BP 141/73 Pulse 72 Temp 36.8 ?C (98.3 ?F) Resp 16 Wt 132 kg (291 lb) BMI 51.56 kg/m? General Appearance: Alert and oriented, appearing in no acute distress. Skin: Skin color, texture, turgor normal, no suspicious rashes or lesions. Head: Normal. Eyes: Anicteric sclera. Pupils are equally round. Extraocular movements are intact. Ears: External ears normal Neck: Supple, no adenopathy; thyroid symmetric, normal size, no bruits. Back: No pain with ambulation Lungs: Good air exchange overall Heart: RRR Abdomen: No obvious evidence of rebound tenderness or guarding. Extremities: Extremities normal. No deformities, edema, or skin discoloration. Good capillary refill. Musculoskeletal: Spine range of motion normal. Muscular strength intact. Peripheral Pulses: Normal. Neurologic: Gait normal. No gross cerebellar defects. Psychiatric: The patient has an appropriate affect. ASSESSMENT/PLAN: 1. Ductal carcinoma in situ (DCIS) of right breast - ICD9: 233.0, ICD10: D05.11 Patient has had excision of ductal carcinoma in situ, with the size of tumor at least 2 mm, in minute quantities. The cancer is ER positive. In my opinion, given her age I would not recommend to her adjuvant hormonal therapy as it has not been definitively shown that there is a survival benefit with hormonal therapy in this situation and given the patient's age older than 60, my concern that the risk/ benefit analysis of adjuvant hormonal therapy may potentially be higher in the risk and side effects of hormonal therapy. I will not recommend to her hormonal therapy. Patient was given treatment summary and survivorship care plan. >50% 15 minutes was spent on counseling and coordination of care. Patient will continue to follow with Dr. Harry as scheduled. Since patient was not started on adjuvant hormonal therapy, she will not need to follow with Dr. Downs at this time. Lisa Willams APRN.[employer] Referring Provider: FARHEEN CRONIN [[id number]] Allergies As of Date: 12/04/2017 (No Known Allergies) Date Reviewed: 12/04/2017 Reviewed by: Anatoliy (Flo) CLARA Ha - Fully Assessed Reason for Visit: Follow Up [171] Primary Visit Diagnosis:Ductal carcinoma in situ (DCIS) of right breast [D05.11] Prescriptions as of 12/04/2017 Sig: VENTOLIN HFA 90 MCG/ACTUATION* CITALOPRAM 40 MG TABLET Take 40 mg by mouth once evangelina* DILTIAZEM 120 MG TABLET Take 120 mg by mouth three ti* LISINOPRIL 10 MG TABLET Take 10 mg by mouth once evangelina* MULTIVITAMIN CHEWABLE TABLET Take by mouth. Problem List As Of Date 12/04/2017 Noted Resolved Ductal carcinoma in situ (DCIS) of right breast*INVALID FOR* Encounter Status:Closed by LISA WILLAMS CNP on 12/10/17 [facility] PROGRESSon 12-04-2017 Protein mass conc HNO ID: [id number] Author: Farheen Cronin Service: (none) Author Type: Physician Type: Progress Notes Filed: 12/04/2017 1:55 PM Note Text: Radiation Oncology - Follow Up Note PATIENT NAME: Joss Washington PATIENT DIAGNOSIS: DCIS of the Right breast, UIQ, 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 ? INTERVAL HISTORY: Mrs. Washington is doing very well. Her appetite is good and she is maintaining her weight. ALLERGIES No Known Allergies MEDICATIONS: VENTOLIN HFA 90 mcg/actuation inhaler citalopram (CELEXA) 40 mg tablet Take 40 mg by mouth once daily. diltiazem (CARDIZEM) 120 mg tablet Take 120 mg by mouth three times daily. lisinopril (ZESTRIL, PRINIVIL) 10 mg tablet Take 10 mg by mouth once daily. Multivitamins chew Take by mouth. PHYSICAL EXAM: VS: BP 141/73 Pulse 72 Temp 36.8 ?C (98.3 ?F) (Oral) Resp 16 Ht 160 cm (5' 2.99 ) Wt 132 kg (291 lb) SpO2 99% BMI 51.56 kg/m? KPS: 90 General Appearance: Alert and oriented. No acute distress. HEENT: NCAT. Sclera anicteric. PERRL. EOMI. Neck: Normal ROM. No palpable cervical or supraclavicular adenopathy. Chest: No respiratory distress. Lungs clear to auscultation bilaterally. Heart: Regular rate and rhythm. Abdomen: Soft. Nontender. Nondistended. Musculoskeletal: No edema. Normal ROM in extremities. No bone or spine tenderness. Neuro: Strength intact and symmetric. Sensation intact. CN II-XII intact. Gait normal. No focal deficits. Skin: Skin reaction in the right breast is improving. Lymphatics: No palpable lymphadenopathy. Breasts: No masses are palpable. ? ASSESSMENT AND PLAN: There is no evidence of active disease at this time. I will see her again in 2 months for follow-up examination. ? Signed by: Farheen Cronin M.D., KAY ? cc: Lawrence Rai MD [facility] [place] [address] ? Katherine Downs MD [facility] [address] [place] [address] ? Dr. Berman ? This note was dictated with Dragon Naturally Speaking and may contain some grammatical errors due to limitations of the software. Anatoliy Ha MA was present in the examination room throughout the encounter. [facility] CNOVon 10-30-2017 CNOV Office Visit (RADTSA ) JOSS WASHINGTON ([id number]) 1950 F Date Time Provider Department 10/30/17 10:00 AM FARHEEN CRONIN During your visit today, we recorded the following information about you: Temperature Pulse Respiration Blood pressure 98.6 degrees 84/minute 20/minute 148/70 Weight 132.5 kg Farheen Cronin MD 10/30/2017 3:16 PM Signed Radiation Oncology - Follow Up Note PATIENT NAME: Joss Washington PATIENT DIAGNOSIS: DCIS of the Right breast, UIQ, pathologic stage 0 (Tis Nx M0), ER-positive, SC-positive, s/p partial mastectomy ? INTERVAL HISTORY: Mrs. Washington is doing very well. Her appetite is good and she is maintaining her weight. ALLERGIES No Known Allergies MEDICATIONS: VENTOLIN HFA 90 mcg/actuation inhaler citalopram (CELEXA) 40 mg tablet Take 40 mg by mouth once daily. diltiazem (CARDIZEM) 120 mg tablet Take 120 mg by mouth three times daily. lisinopril (ZESTRIL, PRINIVIL) 10 mg tablet Take 10 mg by mouth once daily. Multivitamins chew Take by mouth. PHYSICAL EXAM: VS: BP 148/70 Pulse 84 Temp 37 ?C (98.6 ?F) Resp 20 Wt 132.5 kg (292 lb) BMI 51.74 kg/m? KPS: 90 General Appearance: Alert and oriented. No acute distress. HEENT: NCAT. Sclera anicteric. PERRL. EOMI. Neck: Normal ROM. No palpable cervical or supraclavicular adenopathy. Chest: No respiratory distress. Lungs clear to auscultation bilaterally. Heart: Regular rate and rhythm. Abdomen: Soft. Nontender. Nondistended. Musculoskeletal: No edema. Normal ROM in extremities. No bone or spine tenderness. Neuro: Strength intact and symmetric. Sensation intact. CN II-XII intact. Gait normal. No focal deficits. Skin: Skin reaction in the right breast is improving. Lymphatics: No palpable lymphadenopathy. Breasts: No masses are palpable. ASSESSMENT AND PLAN: There is no evidence of active disease at this time. I will see her again in one month for follow-up examination. Signed by: Farheen Cronin M.D., [facility] cc: Lawrence Rai MD [address] [place] [id number] ? Katherine Downs MD [facility] [address] [place] [address] ? Dr. Berman ? This note was dictated with Radhaon Naturally Speaking and may contain some grammatical errors due to limitations of the software. Dexter De León RN was present in the examination room throughout the encounter. Referring Provider: FARHEEN CRONIN [[id number]] Allergies As of Date: 10/30/2017 (No Known Allergies) Date Reviewed: 10/30/2017 Reviewed by: Dexter (Clara) CLARA De León - Fully Assessed Reason for Visit: Breast Cancer [519] Primary Visit Diagnosis:Ductal carcinoma in situ (DCIS) of right breast [D05.11] Prescriptions as of 10/30/2017 Sig: VENTOLIN HFA 90 MCG/ACTUATION* CITALOPRAM 40 MG TABLET Take 40 mg by mouth once evangelina* DILTIAZEM 120 MG TABLET Take 120 mg by mouth three ti* LISINOPRIL 10 MG TABLET Take 10 mg by mouth once evangelina* MULTIVITAMIN CHEWABLE TABLET Take by mouth. Problem List As Of Date 10/30/2017 Noted Resolved Ductal carcinoma in situ (DCIS) of right breast*INVALID FOR* Disposition: Return in about 1 month (around 11/30/2017). Follow-up and Disposition History Recorded Encounter Status:Closed by FARHEEN CRONIN MD on 10/30/17 Normal [facility] PROGRESSon 10-30-2017 Protein mass conc HNO ID: [id number] Author: Farheen Cronin Service: (none) Author Type: Physician Type: Progress Notes Filed: 10/30/2017 3:16 PM Note Text: Radiation Oncology - Follow Up Note PATIENT NAME: Joss Washington PATIENT DIAGNOSIS: DCIS of the Right breast, UIQ, pathologic stage 0 (Tis Nx M0), ER-positive, SC-positive, s/p partial mastectomy ? INTERVAL HISTORY: Mrs. Washington is doing very well. Her appetite is good and she is maintaining her weight. ALLERGIES No Known Allergies MEDICATIONS: VENTOLIN HFA 90 mcg/actuation inhaler citalopram (CELEXA) 40 mg tablet Take 40 mg by mouth once daily. diltiazem (CARDIZEM) 120 mg tablet Take 120 mg by mouth three times daily. lisinopril (ZESTRIL, PRINIVIL) 10 mg tablet Take 10 mg by mouth once daily. Multivitamins chew Take by mouth. PHYSICAL EXAM: VS: BP 148/70 Pulse 84 Temp 37 ?C (98.6 ?F) Resp 20 Wt 132.5 kg (292 lb) BMI 51.74 kg/m? KPS: 90 General Appearance: Alert and oriented. No acute distress. HEENT: NCAT. Sclera anicteric. PERRL. EOMI. Neck: Normal ROM. No palpable cervical or supraclavicular adenopathy. Chest: No respiratory distress. Lungs clear to auscultation bilaterally. Heart: Regular rate and rhythm. Abdomen: Soft. Nontender. Nondistended. Musculoskeletal: No edema. Normal ROM in extremities. No bone or spine tenderness. Neuro: Strength intact and symmetric. Sensation intact. CN II-XII intact. Gait normal. No focal deficits. Skin: Skin reaction in the right breast is improving. Lymphatics: No palpable lymphadenopathy. Breasts: No masses are palpable. ASSESSMENT AND PLAN: There is no evidence of active disease at this time. I will see her again in one month for follow-up examination. Signed by: Farheen Cronin M.D., FACRO cc: Lawrence Rai MD [facility] [place] [address] ? Katherine Downs MD [facility] [address] [place] [address] ? Dr. Berman ? This note was dictated with Dragon Naturally Speaking and may contain some grammatical errors due to limitations of the software. Dexter De León RN was present in the examination room throughout the encounter. Normal [facility] PROGRESSon 10-16-2017 Protein mass conc HNO ID: [id number] Author: Farheen Cronin Service: (none) Author Type: Physician Type: Progress Notes Filed: 10/17/2017 12:34 AM Note Text: [facility] Radiation Oncology Department RADIATION ONCOLOGY - COMPLETION NOTE PATIENT: JOSS WASHINGTON : 1950 DATES OF TREATMENT: 08/27/2017 to 10/15/2017 DIAGNOSIS: DCIS of the Right breast, UIQ, pathologic stage 0 (Tis Nx M0), ER-positive, SC-positive, s/p partial mastectomy AREA TREATED: Right Breast DELIVERED DOSE: Area: Right Breast 5,040cGy in 28 fractions, 2 field, 3D Conformal, 18 mV with weekly portal images DELIVERED DOSE: Area: Boost Tumor Bed 1,080cGy in 6 fractions, 1 field, 3D Conformal, 12MeV TOTAL: 6,120cGy in 34 Fractions ELAPSED TIME: 49 days. CLINICAL SUMMARY: The patient tolerated the treatments very well. Her appetite remained good throughout the treatments and she maintained her weight. Her blood counts remained stable throughout the treatments. During treatments she developed erythema and dry desquamation of the skin for which she was advised to use Aquaphor. I will see her in 2 weeks for follow-up examination. Electronically Signed Farheen Cronin M.D. / JULIETTE 10/16/20179:57 AM cc: Dr. Lawrence Downs [facility] CNOVon 10-14-2017 CNOV Office Visit (RADTSA ) JOSS WASHINGTON ([id number]) 1950 F Date Time Provider Department 10/14/17 10:15 AM FARHEEN CRONIN During your visit today, we recorded the following information about you: Blood pressure Weight 144/78 130.6 kg Dexter De León RN, RN 10/14/2017 10:18 AM Signed Status: Post-menopausal. CLARA Mahmood MD 10/14/2017 2:16 PM Signed Radiation Oncology - On Treatment Review (OTR) Note PATIENT NAME: Joss Washington PATIENT DIAGNOSIS: DCIS?of the Right?breast, UIQ,?pathologic?stage 0 (Tis Nx M0),?ER-positive, SC-positive, s/p?partial mastectomy ? COURSE: definitive AREA TREATED: Right breast? CURRENT DOSE: 5940?cGy in 33?fx PLANNED DOSE: 6120?cGy in 34?fx ? SUBJECTIVE: Mrs. Wood is doing very well. ?Her appetite is good and she is maintaining her weight. ? ? EXAM: KPS: 90 General Appearance: Alert and oriented. No acute distress. Radiation dermatitis: Dry desquamation of his skin. ? IMAGING/LAB RESULTS: Checked. ? Treatment chart checked: Yes Patient treatment site reviewed and verified:Yes Port films reviewed and current:Yes Medications started: Aquaphor. ? ASSESSMENT/PLAN: Clinically stable. Toxicity within expected parameters. Continue radiation treatment as planned. ? Farheen Cronin MD? Allergies As of Date: 10/14/2017 (No Known Allergies) Date Reviewed: 10/07/2017 Reviewed by: Dexter AyoubRn) CLARA De León - Fully Assessed Reason for Visit: Breast Cancer [519] Primary Visit Diagnosis:Ductal carcinoma in situ (DCIS) of right breast [D05.11] Prescriptions as of 10/14/2017 Sig: VENTOLIN HFA 90 MCG/ACTUATION* CITALOPRAM 40 MG TABLET Take 40 mg by mouth once evangelina* DILTIAZEM 120 MG TABLET Take 120 mg by mouth three ti* LISINOPRIL 10 MG TABLET Take 10 mg by mouth once evangelina* MULTIVITAMIN CHEWABLE TABLET Take by mouth. Problem List As Of Date 10/14/2017 Noted Resolved Ductal carcinoma in situ (DCIS) of right breast*INVALID FOR* Visit Notes: >> Dexter Sykes) CLARA De León e Oct 14, 2017 10:15 AM Status: Signed Status: Post-menopausal. Dexter De León RN Encounter Status:Closed by FARHEEN CRONIN MD on 10/14/17 Normal [facility] PROGRESSon 10-14-2017 Protein mass conc HNO ID: [id number] Author: Farheen Cronin Service: (none) Author Type: Physician Type: Progress Notes Filed: 10/14/2017 2:16 PM Note Text: Radiation Oncology - On Treatment Review (OTR) Note PATIENT NAME: Joss Washington PATIENT DIAGNOSIS: DCIS?of the Right?breast, UIQ,?pathologic?stage 0 (Tis Nx M0),?ER-positive, SC-positive, s/p?partial mastectomy ? COURSE: definitive AREA TREATED: Right breast? CURRENT DOSE: 5940?cGy in 33?fx PLANNED DOSE: 6120?cGy in 34?fx ? SUBJECTIVE: Mrs. Wood is doing very well. ?Her appetite is good and she is maintaining her weight. ? ? EXAM: KPS: 90 General Appearance: Alert and oriented. No acute distress. Radiation dermatitis: Dry desquamation of his skin. ? IMAGING/LAB RESULTS: Checked. ? Treatment chart checked: Yes Patient treatment site reviewed and verified:Yes Port films reviewed and current:Yes Medications started: Aquaphor. ? ASSESSMENT/PLAN: Clinically stable. Toxicity within expected parameters. Continue radiation treatment as planned. ? Farheen Cronin MD? Normal [facility] CNOVon 10-07-2017 CNOV Office Visit (RADTSA ) JOSS WASHINGTON ([id number]) 1950 F Date Time Provider Department 10/07/17 10:15 AM FARHEEN CRONIN During your visit today, we recorded the following information about you: Blood pressure Weight 142/80 130.6 kg Dexter De León RN, RN 10/07/2017 10:16 AM Signed Status: Post-menopausal. CLARA Mahmood MD 10/07/2017 11:21 AM Signed Radiation Oncology - On Treatment Review (OTR) Note PATIENT NAME: Joss Washington PATIENT DIAGNOSIS: DCIS?of the Right?breast, UIQ,?pathologic?stage 0 (Tis Nx M0),?ER-positive, SC-positive, s/p?partial mastectomy ? COURSE: definitive AREA TREATED: Right breast? CURRENT DOSE: 5220?cGy in 29?fx PLANNED DOSE: 6120?cGy in 34?fx ? SUBJECTIVE: Mrs. Wood is doing very well. ?Her appetite is good and she is maintaining her weight. ? ? EXAM: KPS: 90 General Appearance: Alert and oriented. No acute distress. Radiation dermatitis: Dry desquamation of his skin. ? IMAGING/LAB RESULTS: Checked. ? Treatment chart checked: Yes Patient treatment site reviewed and verified:Yes Port films reviewed and current:Yes Medications started: Aquaphor. ? ASSESSMENT/PLAN: Clinically stable. Toxicity within expected parameters. Continue radiation treatment as planned. ? Farheen Cronin MD? Allergies As of Date: 10/07/2017 (No Known Allergies) Date Reviewed: 10/07/2017 Reviewed by: Dexter AyoubRn) CLARA De León - Fully Assessed Primary Visit Diagnosis:Ductal carcinoma in situ (DCIS) of right breast [D05.11] Prescriptions as of 10/07/2017 Sig: VENTOLIN HFA 90 MCG/ACTUATION* CITALOPRAM 40 MG TABLET Take 40 mg by mouth once evangelina* DILTIAZEM 120 MG TABLET Take 120 mg by mouth three ti* LISINOPRIL 10 MG TABLET Take 10 mg by mouth once evangelina* MULTIVITAMIN CHEWABLE TABLET Take by mouth. Problem List As Of Date 10/07/2017 Noted Resolved Ductal carcinoma in situ (DCIS) of right breast*INVALID FOR* Visit Notes: >> Dexter Sykes) CLARA De León e Oct 07, 2017 10:14 AM Status: Signed Status: Post-menopausal. Dexter De León RN Encounter Status:Closed by FARHEEN CRONIN MD on 10/07/17 Normal [facility] PROGRESSon 10-07-2017 Protein mass conc HNO ID: [id number] Author: Farheen Cronin Service: (none) Author Type: Physician Type: Progress Notes Filed: 10/07/2017 11:21 AM Note Text: Radiation Oncology - On Treatment Review (OTR) Note PATIENT NAME: Joss Washington PATIENT DIAGNOSIS: DCIS?of the Right?breast, UIQ,?pathologic?stage 0 (Tis Nx M0),?ER-positive, SC-positive, s/p?partial mastectomy ? COURSE: definitive AREA TREATED: Right breast? CURRENT DOSE: 5220?cGy in 29?fx PLANNED DOSE: 6120?cGy in 34?fx ? SUBJECTIVE: Mrs. Wood is doing very well. ?Her appetite is good and she is maintaining her weight. ? ? EXAM: KPS: 90 General Appearance: Alert and oriented. No acute distress. Radiation dermatitis: Dry desquamation of his skin. ? IMAGING/LAB RESULTS: Checked. ? Treatment chart checked: Yes Patient treatment site reviewed and verified:Yes Port films reviewed and current:Yes Medications started: Aquaphor. ? ASSESSMENT/PLAN: Clinically stable. Toxicity within expected parameters. Continue radiation treatment as planned. ? Farheen Cronin MD? Normal [facility] CNOVon 09-30-2017 CNOV Office Visit (RADTSA ) JOSS WASHINGTON ([id number]) 1950 F Date Time Provider Department 09/30/17 10:15 AM FARHEEN CRONIN During your visit today, we recorded the following information about you: Blood pressure Weight 128/86 130.6 kg Anatoliy Ha LPN, RN 09/30/2017 10:27 AM Signed Status: Post-menopausal. Farheen Cronin MD 09/30/2017 11:48 AM Signed Radiation Oncology - On Treatment Review (OTR) Note PATIENT NAME: Joss Washington PATIENT DIAGNOSIS: DCIS?of the Right?breast, UIQ,?pathologic?stage 0 (Tis Nx M0),?ER-positive, SC-positive, s/p?partial mastectomy ? COURSE: definitive AREA TREATED: Right breast? CURRENT DOSE: 4500?cGy in 25?fx PLANNED DOSE: 5040?cGy in 28?fx ? SUBJECTIVE: Mrs. Wood is doing very well. ?Her appetite is good and she is maintaining her weight. ? ? EXAM: KPS: 90 General Appearance: Alert and oriented. No acute distress. Radiation dermatitis: Dry desquamation of his skin. ? IMAGING/LAB RESULTS: Checked. ? Treatment chart checked: Yes Patient treatment site reviewed and verified:Yes Port films reviewed and current:Yes Medications started: Aquaphor. ? ASSESSMENT/PLAN: Clinically stable. Toxicity within expected parameters. Continue radiation treatment as planned. ? Farheen Cronin MD? Allergies As of Date: 09/30/2017 (No Known Allergies) Date Reviewed: 09/30/2017 Reviewed by: Anatoliy Ha RN - Fully Assessed Reason for Visit: Radiotherapy On-treatment Visit [1722] Primary Visit Diagnosis:Ductal carcinoma in situ (DCIS) of right breast [D05.11] Prescriptions as of 09/30/2017 Sig: VENTOLIN HFA 90 MCG/ACTUATION* CITALOPRAM 40 MG TABLET Take 40 mg by mouth once evangelina* DILTIAZEM 120 MG TABLET Take 120 mg by mouth three ti* LISINOPRIL 10 MG TABLET Take 10 mg by mouth once evangelina* MULTIVITAMIN CHEWABLE TABLET Take by mouth. Problem List As Of Date 09/30/2017 Noted Resolved Ductal carcinoma in situ (DCIS) of right breast*INVALID FOR* Visit Notes: >> Anatoliy (Route Driver) CLARA Ha loni Sep 30, 2017 10:21 AM Status: Signed Status: Post-menopausal. Encounter Status:Closed by FARHEEN CRONIN MD on 09/30/17 [facility] PROGRESSon 09-30-2017 Protein mass conc HNO ID: [id number] Author: Farheen Cronin Service: (none) Author Type: Physician Type: Progress Notes Filed: 09/30/2017 11:48 AM Note Text: Radiation Oncology - On Treatment Review (OTR) Note PATIENT NAME: Joss Washington PATIENT DIAGNOSIS: DCIS?of the Right?breast, UIQ,?pathologic?stage 0 (Tis Nx M0),?ER-positive, SC-positive, s/p?partial mastectomy ? COURSE: definitive AREA TREATED: Right breast? CURRENT DOSE: 4500?cGy in 25?fx PLANNED DOSE: 5040?cGy in 28?fx ? SUBJECTIVE: Mrs. Wood is doing very well. ?Her appetite is good and she is maintaining her weight. ? ? EXAM: KPS: 90 General Appearance: Alert and oriented. No acute distress. Radiation dermatitis: Dry desquamation of his skin. ? IMAGING/LAB RESULTS: Checked. ? Treatment chart checked: Yes Patient treatment site reviewed and verified:Yes Port films reviewed and current:Yes Medications started: Aquaphor. ? ASSESSMENT/PLAN: Clinically stable. Toxicity within expected parameters. Continue radiation treatment as planned. ? Farheen Cronin MD? Normal [facility] CNOVon 09-22-2017 CNOV Office Visit (RADTSA ) JOSS WASHINGTON ([id number]) 1950 F Date Time Provider Department 09/22/17 10:15 AM FARHEEN CRONIN During your visit today, we recorded the following information about you: Blood pressure Weight 136/84 129.3 kg Anatoliy Ha LPN, RN 09/22/2017 10:26 AM Signed Status: Post-menopausal. Farheen Cronin MD 09/22/2017 2:38 PM Signed Radiation Oncology - On Treatment Review (OTR) Note PATIENT NAME: Joss Washington PATIENT DIAGNOSIS: DCIS?of the Right?breast, UIQ,?pathologic?stage 0 (Tis Nx M0),?ER-positive, SC-positive, s/p?partial mastectomy ? COURSE: definitive AREA TREATED: Right breast? CURRENT DOSE: 3420?cGy in 19?fx PLANNED DOSE: 5040?cGy in 28?fx ? SUBJECTIVE: Mrs. Wood is doing very well. ?Her appetite is good and she is maintaining her weight. She complains of irritation around the right nipple. ? EXAM: KPS: 90 General Appearance: Alert and oriented. No acute distress. Radiation dermatitis: Dry desquamation of his skin. ? IMAGING/LAB RESULTS: Checked. ? Treatment chart checked: Yes Patient treatment site reviewed and verified:Yes Port films reviewed and current:Yes Medications started: Aquaphor. ? ASSESSMENT/PLAN: Clinically stable. Toxicity within expected parameters. Continue radiation treatment as planned. ? Farheen Cronin MD Allergies As of Date: 09/22/2017 (No Known Allergies) Date Reviewed: 09/22/2017 Reviewed by: Anatoliy Ha RN - Fully Assessed Reason for Visit: Radiotherapy On-treatment Visit [1722] Primary Visit Diagnosis:Ductal carcinoma in situ (DCIS) of right breast [D05.11] Prescriptions as of 09/22/2017 Sig: VENTOLIN HFA 90 MCG/ACTUATION* CITALOPRAM 40 MG TABLET Take 40 mg by mouth once evangelina* DILTIAZEM 120 MG TABLET Take 120 mg by mouth three ti* LISINOPRIL 10 MG TABLET Take 10 mg by mouth once evangelina* MULTIVITAMIN CHEWABLE TABLET Take by mouth. Problem List As Of Date 09/22/2017 Noted Resolved Ductal carcinoma in situ (DCIS) of right breast*INVALID FOR* Visit Notes: >> Anatoliy (Flo) CLARA Ha FriSep 22, 2017 10:22 AM Status: Signed Status: Post-menopausal. Encounter Status:Closed by FARHEEN CRONIN MD on 09/22/17 Normal [facility] PROGRESSon 09-22-2017 Protein mass conc HNO ID: [id number] Author: Farheen Cronin Service: (none) Author Type: Physician Type: Progress Notes Filed: 09/22/2017 2:38 PM Note Text: Radiation Oncology - On Treatment Review (OTR) Note PATIENT NAME: Joss Washington PATIENT DIAGNOSIS: DCIS?of the Right?breast, UIQ,?pathologic?stage 0 (Tis Nx M0),?ER-positive, SC-positive, s/p?partial mastectomy ? COURSE: definitive AREA TREATED: Right breast? CURRENT DOSE: 3420?cGy in 19?fx PLANNED DOSE: 5040?cGy in 28?fx ? SUBJECTIVE: Mrs. Wood is doing very well. ?Her appetite is good and she is maintaining her weight. She complains of irritation around the right nipple. ? EXAM: KPS: 90 General Appearance: Alert and oriented. No acute distress. Radiation dermatitis: Dry desquamation of his skin. ? IMAGING/LAB RESULTS: Checked. ? Treatment chart checked: Yes Patient treatment site reviewed and verified:Yes Port films reviewed and current:Yes Medications started: Aquaphor. ? ASSESSMENT/PLAN: Clinically stable. Toxicity within expected parameters. Continue radiation treatment as planned. ? Farheen Cronin MD [facility] CBC and Differentialon 09-18 Abs Baso 0.03 k/uL Normal 0.00-0.10 [facility] Abs Stephens 0.45 k/uL Normal 0.00-0.86 [facility] Abs Neut 5.16 k/uL Normal 1.45-7.50 [facility] Basophils/100 WBC (Bld) 0.4 % Normal [facility] Eosinophils #/vol (Bld) 0.23 10*3/uL Normal 0.00-0.45 [facility] Eosinophils/100 WBC (Bld) 3.2 % Normal [facility] Erythrocyte distribution width Ratio (RBC) 15.0 % Normal 11.5-15.0 [facility] Hematocrit Volume Fraction (Bld) 39.1 % Normal 36.0-46.0 [facility] Hemoglobin mass conc (Bld) 13.0 g/dL Normal 11.5-15.5 [facility] Lymphocytes #/vol (Bld) 1.40 10*3/uL Normal 1.00-4.00 [facility] Lymphocytes/100 WBC (Bld) 19.3 % Normal [facility] MCH Entitic mass (RBC) 30.6 pG Normal 26.0-34.0 [facility] MCHC mass conc (RBC) 33.2 g/dL Normal 30.5-36.0 [facility] MCV Entitic volume (RBC) 92.0 fL Normal 80.0-100.0 [facility] Monocytes/100 WBC (Bld) 6.2 % Normal [facility] Neutrophils/100 WBC (Bld) 70.9 % Normal [facility] Platelet mean volume Entitic volume (Bld) 9.5 fL Normal 9.0-12.7 [facility] Platelets #/vol (Bld) 272 10*3/uL Normal 150-400 [facility] RBC #/vol (Bld) 4.25 10*6/uL Normal 3.90-5.20 [facility] WBC #/vol (Bld) 7.27 10*3/uL Normal 3.70-11.00 [facility] CNOVon 09-18-2017 CNOV Office Visit (RADTSA ) FELIXJOSS ([id number]) 1950 F Date Time Provider Department 09/18/17 10:10 AM LAB/PORT [facility] During your visit today, we recorded the following information about you: Dexter De León RN, RN 09/18/2017 10:02 AM Signed Joss Washington presents in office today for: Lab Draw only . Ordering Provider: Farheen Cronin M.D. Test (s) ordered: CBC Method for obtaining blood: Phlebotomy was performed, accessing left antecubital vein. Needle removed intact. Dressing secured. Patient denies discomfort, dizziness, light-headedness or weakness and left the department without assist. Dexter De León RN Referring Provider: FARHEEN CRONIN [[id number]] Allergies As of Date: 09/18/2017 (No Known Allergies) Date Reviewed: 09/16/2017 Reviewed by: Dexter Sykes) CLARA De León - Fully Assessed Reason for Visit: Phlebotomy [1172] Primary Visit Diagnosis:Ductal carcinoma in situ (DCIS) of right breast [D05.11] Prescriptions as of 09/18/2017 Sig: VENTOLIN HFA 90 MCG/ACTUATION* CITALOPRAM 40 MG TABLET Take 40 mg by mouth once evangelina* DILTIAZEM 120 MG TABLET Take 120 mg by mouth three ti* LISINOPRIL 10 MG TABLET Take 10 mg by mouth once evangelina* MULTIVITAMIN CHEWABLE TABLET Take by mouth. Problem List As Of Date 09/18/2017 Noted Resolved Ductal carcinoma in situ (DCIS) of right breast*INVALID FOR* Visit Notes: >> Dexter De León RN [facility] Sep 18, 2017 10:01 AM Status: Signed Joss Washington presents in office today for: Lab Draw only . Ordering Provider: Farheen Cronin M.D. Test (s) ordered: CBC Method for obtaining blood: Phlebotomy was performed, accessing left antecubital vein. Needle removed intact. Dressing secured. Patient denies discomfort, dizziness, light-headedness or weakness and left the department without assist. Dexter De León RN Encounter Status:Closed by DEXTER DE LEÓN on 09/18/17 Normal [facility] CNOVon 09-16-2017 CNOV Office Visit (RADTSA ) JOSS WASHINGTON ([id number]) 1950 F Date Time Provider Department 09/16/17 10:15 AM FARHEEN CRONIN During your visit today, we recorded the following information about you: Blood pressure Weight 114/72 130.6 kg Dexter De León RN, RN 09/16/2017 10:53 AM Signed Status: Post-menopausal. CLARA Mahmood MD 09/16/2017 11:06 AM Signed Radiation Oncology - On Treatment Review (OTR) Note PATIENT NAME: Joss Washington PATIENT DIAGNOSIS: DCIS?of the Right?breast, UIQ,?pathologic?stage 0 (Tis Nx M0),?ER-positive, SC-positive, s/p?partial mastectomy ? COURSE: definitive AREA TREATED: Right breast CURRENT DOSE: 2700 cGy in 15 fx PLANNED DOSE: 5040 cGy in 28 fx ? SUBJECTIVE: Mrs. Wood is doing very well. Her appetite is good and she is maintaining her weight. She complains of irritation around the right nipple. ? EXAM: KPS: 90 General Appearance: Alert and oriented. No acute distress. Radiation dermatitis: No ? IMAGING/LAB RESULTS: Checked. ? Treatment chart checked: Yes Patient treatment site reviewed and verified:Yes Port films reviewed and current:Yes Medications started: Aquaphor. ? ASSESSMENT/PLAN: Clinically stable. Toxicity within expected parameters. Continue radiation treatment as planned. ? Farheen Cronin MD Allergies As of Date: 09/16/2017 (No Known Allergies) Date Reviewed: 09/16/2017 Reviewed by: Dexter (Rn) CLARA De León - Fully Assessed Reason for Visit: Breast Cancer [519] Primary Visit Diagnosis:Ductal carcinoma in situ (DCIS) of right breast [D05.11] Prescriptions as of 09/16/2017 Sig: VENTOLIN HFA 90 MCG/ACTUATION* CITALOPRAM 40 MG TABLET Take 40 mg by mouth once evangelina* DILTIAZEM 120 MG TABLET Take 120 mg by mouth three ti* LISINOPRIL 10 MG TABLET Take 10 mg by mouth once evangelina* MULTIVITAMIN CHEWABLE TABLET Take by mouth. Problem List As Of Date 09/16/2017 Noted Resolved Ductal carcinoma in situ (DCIS) of right breast*INVALID FOR* Visit Notes: >> Dexter (Clara) CLARA De León FriSep 16, 2017 10:51 AM Status: Signed Status: Post-menopausal. Dexter De León RN Encounter Status:Closed by FARHEEN CRONIN MD on 09/16/17 [facility] PROGRESSon 09-16-2017 Protein mass conc HNO ID: [id number] Author: Farheen Cronin Service: (none) Author Type: Physician Type: Progress Notes Filed: 09/16/2017 11:06 AM Note Text: Radiation Oncology - On Treatment Review (OTR) Note PATIENT NAME: Joss Washington PATIENT DIAGNOSIS: DCIS?of the Right?breast, UIQ,?pathologic?stage 0 (Tis Nx M0),?ER-positive, SC-positive, s/p?partial mastectomy ? COURSE: definitive AREA TREATED: Right breast CURRENT DOSE: 2700 cGy in 15 fx PLANNED DOSE: 5040 cGy in 28 fx ? SUBJECTIVE: Mrs. Wood is doing very well. Her appetite is good and she is maintaining her weight. She complains of irritation around the right nipple. ? EXAM: KPS: 90 General Appearance: Alert and oriented. No acute distress. Radiation dermatitis: No ? IMAGING/LAB RESULTS: Checked. ? Treatment chart checked: Yes Patient treatment site reviewed and verified:Yes Port films reviewed and current:Yes Medications started: Aquaphor. ? ASSESSMENT/PLAN: Clinically stable. Toxicity within expected parameters. Continue radiation treatment as planned. ? Farheen Cronin MD [facility] PROGRESSon 09-09-2017 Protein mass conc HNO ID: [id number] Author: Jem Santana Service: (none) Author Type: Physician Type: Progress Notes Filed: 09/18/2017 11:49 PM Note Text: RADIATION ONCOLOGY- ON TREATMENT REVIEW (OTR) NOTE PATIENT NAME: Joss Washington PATIENT DIAGNOSIS: DCIS?of the Right?breast, UIQ,?pathologic?stage 0 (Tis Nx M0),?ER-positive, SC-positive, s/p?partial mastectomy ? COURSE: definitive AREA TREATED: Right breast CURRENT DOSE: 1620 cGy in 9 fx PLANNED DOSE: 5040 cGy in 28 fx ? SUBJECTIVE: Tolerating XRT well and denies skin redness/breakdown, swelling, incisional pain or issues with ROM of the arm. She does note some tenderness about the nipple/areolar complex. PHYSICAL EXAM: KPS: 90 General Appearance: Alert and oriented. No acute distress. Skin erythema/hyperpigmenta tion: No Desquamation: No TOXICITY ASSESSMENT (CTC v4.0): Fatigue: grade 0 - No symptoms Radiation dermatitis: grade 0 - No symptoms Treatment chart checked: Yes Patient treatment site reviewed and verified:Yes Port films reviewed and current:Yes Medications started: None ASSESSMENT/PLAN: Clinically stable. Toxicity within expected parameters. Continue radiation treatment as planned. Reassures patient that nipple sensitivity is not unusual during radiation treatment and suggested avoiding tight fitting clothes/bras that can increase friction in the area and encouraged using a good moisturizer in the whole treatment area including the nipple region. May also use an anti-inflammatory if discomfort progresses requiring intervention. Signed by: Jem Santana MD [facility] CNOVbere 09-08-2017 CNOV Office Visit (RADTSA ) JOSS WASHINGTON ([id number]) 1950 F Date Time Provider Department 09/08/17 10:15 AM JEM SANTANA During your visit today, we recorded the following information about you: Blood pressure Weight 130/82 130.6 kg Anatoliy Graves, SCRUM COACH, RN 09/08/2017 12:04 PM Signed Status: Post-menopausal. Jem Santana MD 09/18/2017 11:49 PM Signed RADIATION ONCOLOGY- ON TREATMENT REVIEW (OTR) NOTE PATIENT NAME: Joss Washington PATIENT DIAGNOSIS: DCIS?of the Right?breast, UIQ,?pathologic?stage 0 (Tis Nx M0),?ER-positive, SC-positive, s/p?partial mastectomy ? COURSE: definitive AREA TREATED: Right breast CURRENT DOSE: 1620 cGy in 9 fx PLANNED DOSE: 5040 cGy in 28 fx ? SUBJECTIVE: Tolerating XRT well and denies skin redness/breakdown, swelling, incisional pain or issues with ROM of the arm. She does note some tenderness about the nipple/areolar complex. PHYSICAL EXAM: KPS: 90 General Appearance: Alert and oriented. No acute distress. Skin erythema/hyperpigmenta tion: No Desquamation: No TOXICITY ASSESSMENT (CTC v4.0): Fatigue: grade 0 - No symptoms Radiation dermatitis: grade 0 - No symptoms Treatment chart checked: Yes Patient treatment site reviewed and verified:Yes Port films reviewed and current:Yes Medications started: None ASSESSMENT/PLAN: Clinically stable. Toxicity within expected parameters. Continue radiation treatment as planned. Reassures patient that nipple sensitivity is not unusual during radiation treatment and suggested avoiding tight fitting clothes/bras that can increase friction in the area and encouraged using a good moisturizer in the whole treatment area including the nipple region. May also use an anti-inflammatory if discomfort progresses requiring intervention. Signed by: Jem Santana MD Allergies As of Date: 09/08/2017 (No Known Allergies) Date Reviewed: 09/08/2017 Reviewed by: Anatoliy Ha RN - Fully Assessed Reason for Visit: Radiotherapy On-treatment Visit [1722] Primary Visit Diagnosis:Ductal carcinoma in situ (DCIS) of right breast [D05.11] Prescriptions as of 09/08/2017 Sig: VENTOLIN HFA 90 MCG/ACTUATION* CITALOPRAM 40 MG TABLET Take 40 mg by mouth once evangelina* DILTIAZEM 120 MG TABLET Take 120 mg by mouth three ti* LISINOPRIL 10 MG TABLET Take 10 mg by mouth once evangelina* MULTIVITAMIN CHEWABLE TABLET Take by mouth. Problem List As Of Date 09/08/2017 Noted Resolved Ductal carcinoma in situ (DCIS) of right breast*INVALID FOR* Visit Notes: >> Anatoliy Ha RN FriSep 08, 2017 10:10 AM Status: Signed Status: Post-menopausal. Encounter Status:Closed by JEM SANTANA MD on 09/18/17 Normal [facility] CBC and Differentialon 09-04 Abs Baso 0.03 k/uL Normal <0.11 [facility] Comment on above: Performed By: #### C BCDIF ####[facility] [place] [phone] Abs Stephens 0.45 k/uL Normal <0.87 [facility] Comment on above: Performed By: #### C BCDIF ####[place] [address] [place] [phone] Abs Neut 3.74 k/uL Normal 1.45-7.50 [facility] Comment on above: Performed By: #### C BCDIF ####[facility] [place] [phone] Basophils/100 WBC (Bld) 0.5 % Normal [facility] Comment on above: Performed By: #### C BCDIF ####[place] [address] [place] [phone] Comment AGC=3.68 Normal [facility] Comment on above: Result Comment: Prel iminary result. Interpret with caution. Final results may vary. Results requested and read back by: /09/04/1710/15/1026/OSITO CASTELLON Performed By: #### C BCDIF ####[place] [address] [place] [phone] Eosinophils #/vol (Bld) 0.23 10*3/uL Normal <0.46 [facility] Comment on above: Performed By: #### C BCDIF ####[facility] [address], [place] [phone] Eosinophils/100 WBC (Bld) 3.7 % Normal [facility] Comment on above: Performed By: #### C BCDIF ####[place] [address] [address] [place] [phone] Erythrocyte distribution width Ratio (RBC) 15.5 % High 11.5-15.0 [facility] Comment on above: Performed By: #### C BCDIF ####[place] [address] [address] [place] [phone] Hematocrit Volume Fraction (Bld) 37.1 % Normal 36.0-46.0 [facility] Comment on above: Performed By: #### C BCDIF ####[place] [phone] Hemoglobin mass conc (Bld) 12.2 g/dL Normal 11.5-15.5 [facility] Comment on above: Performed By: #### C BCDIF ####[place] [phone] Lymphocytes #/vol (Bld) 1.78 10*3/uL Normal 1.00-4.00 [facility] Comment on above: Performed By: #### C BCDIF ####[place] [address] [phone] Lymphocytes/100 WBC (Bld) 28.6 % Normal [facility] Comment on above: Performed By: #### C BCDIF ####[place] [address] [phone] MCH Entitic mass (RBC) 30.3 pG Normal 26.0-34.0 [facility] Comment on above: Performed By: #### C BCDIF ####[place] [address] [phone] MCHC mass conc (RBC) 32.9 g/dL Normal 30.5-36.0 [facility] Comment on above: Performed By: #### C BCDIF ####[place] [address], [place] [phone] MCV Entitic volume (RBC) 92.1 fL Normal 80.0-100.0 [facility] Comment on above: Performed By: #### C BCDIF ####[place] [address] [address], [place] [phone] Monocytes/100 WBC (Bld) 7.2 % Normal [facility] Comment on above: Performed By: #### C BCDIF ####[address] [place], [place] [phone] Neutrophils/100 WBC (Bld) 60.0 % Normal [facility] Comment on above: Performed By: #### C BCDIF ####[address] [phone] Platelet mean volume Entitic volume (Bld) 9.3 fL Normal 9.0-12.7 [facility] Comment on above: Performed By: #### C BCDIF ####[place] [address] [address], [place] [phone] Platelets #/vol (Bld) 285 10*3/uL Normal 150-400 [facility] Comment on above: Performed By: #### C BCDIF ####[place] [address], [place] [phone] RBC #/vol (Bld) 4.03 10*6/uL Normal 3.90-5.20 [facility] Comment on above: Performed By: #### C BCDIF ####[place] [address] [address], [place] [phone] WBC #/vol (Bld) 6.19 10*3/uL Normal 3.70-11.00 [facility] Comment on above: Performed By: #### C BCDIF ####[facility] [address] [place], [place] [phone] CNOVon 09-04-2017 CNOV Office Visit (RADTSA ) JOSS WASHINGTON ([id number]) 1950 F Date Time Provider Department 09/04/17 10:00 AM LAB/PORT RADT ARIEL HILARIO During your visit today, we recorded the following information about you: Dexter De León RN, RN 09/04/2017 12:45 PM Signed Joss Washington presents in office today for: Lab Draw only . Ordering Provider: Farheen Cronin M.D. Test (s) ordered: CBC Method for obtaining blood: Phlebotomy was performed, accessing right antecubital vein. Needle removed intact. Dressing secured. Patient denies discomfort, dizziness, light-headedness or weakness and left the department without assist. Dexter De León RN Referring Provider: FARHEEN CRONIN [[id number]] Allergies As of Date: 09/04/2017 (No Known Allergies) Date Reviewed: 08/20/2017 Reviewed by: Raina Prescott - Fully Assessed Reason for Visit: Phlebotomy [1172] Primary Visit Diagnosis:Ductal carcinoma in situ (DCIS) of right breast [D05.11] Prescriptions as of 09/04/2017 Sig: VENTOLIN HFA 90 MCG/ACTUATION* CITALOPRAM 40 MG TABLET Take 40 mg by mouth once evangelina* DILTIAZEM 120 MG TABLET Take 120 mg by mouth three ti* LISINOPRIL 10 MG TABLET Take 10 mg by mouth once evangelina* MULTIVITAMIN CHEWABLE TABLET Take by mouth. Problem List As Of Date 09/04/2017 Noted Resolved Ductal carcinoma in situ (DCIS) of right breast*INVALID FOR* Visit Notes: >> Dexter Sykes) CLARA De León Kira Sep 04, 2017 12:44 PM Status: Signed Joss J Felix presents in office today for: Lab Draw only . Ordering Provider: Farheen Cronin M.D. Test (s) ordered: CBC Method for obtaining blood: Phlebotomy was performed, accessing right antecubital vein. Needle removed intact. Dressing secured. Patient denies discomfort, dizziness, light-headedness or weakness and left the department without assist. Dexter De León RN Encounter Status:Closed by DEXTER DE LEÓN on 09/04/17 Normal [facility] CNOVon 09-02-2017 CNOV Office Visit (RADTSA ) JOSS WASHINGTON ([id number]) 1950 F Date Time Provider Department 09/02/17 10:15 AM FARHEEN CRONIN During your visit today, we recorded the following information about you: Blood pressure Weight 140/82 131.1 kg Anatoliy Ha LPN, CLARA 09/02/2017 10:14 AM Signed Status: Post-menopausal. Farheen Cronin MD 09/02/2017 1:31 PM Signed Radiation Oncology - On Treatment Review (OTR) Note PATIENT NAME: Joss Washington PATIENT DIAGNOSIS: DCIS of the Right breast, UIQ, pathologic stage 0 (Tis Nx M0), ER-positive, SC-positive, s/p partial mastectomy COURSE: definitive AREA TREATED: Right breast CURRENT DOSE: 900 cGy in 5 fx PLANNED DOSE: 5040 cGy in 28 fx SUBJECTIVE: Mrs. Wood is doing very well. Her appetite is good and she is maintaining her weight. EXAM: KPS: 90 General Appearance: Alert and oriented. No acute distress. Radiation dermatitis: No IMAGING/LAB RESULTS: Checked. Treatment chart checked: Yes Patient treatment site reviewed and verified:Yes Port films reviewed and current:Yes Medications started: None ASSESSMENT/PLAN: Clinically stable. Toxicity within expected parameters. Continue radiation treatment as planned. Farheen Cronin MD Allergies As of Date: 09/02/2017 (No Known Allergies) Date Reviewed: 08/20/2017 Reviewed by: Raina Prescott - Fully Assessed Reason for Visit: Radiotherapy On-treatment Visit [1722] Primary Visit Diagnosis:Ductal carcinoma in situ (DCIS) of right breast [D05.11] Prescriptions as of 09/02/2017 Sig: VENTOLIN HFA 90 MCG/ACTUATION* CITALOPRAM 40 MG TABLET Take 40 mg by mouth once evangelina* DILTIAZEM 120 MG TABLET Take 120 mg by mouth three ti* LISINOPRIL 10 MG TABLET Take 10 mg by mouth once evangelina* MULTIVITAMIN CHEWABLE TABLET Take by mouth. Problem List As Of Date 09/02/2017 Noted Resolved Ductal carcinoma in situ (DCIS) of right breast*INVALID FOR* Visit Notes: >> Anatoliy (Flo) CLARA Ha loni Sep 02, 2017 10:09 AM Status: Signed Status: Post-menopausal. Encounter Status:Closed by FARHEEN CRONIN MD on 09/02/17 Normal [facility] PROGRESSon 09-02-2017 Protein mass conc HNO ID: [id number] Author: Farheen Cronin Service: (none) Author Type: Physician Type: Progress Notes Filed: 09/02/2017 1:31 PM Note Text: Radiation Oncology - On Treatment Review (OTR) Note PATIENT NAME: Joss Washington PATIENT DIAGNOSIS: DCIS of the Right breast, UIQ, pathologic stage 0 (Tis Nx M0), ER-positive, SC-positive, s/p partial mastectomy COURSE: definitive AREA TREATED: Right breast CURRENT DOSE: 900 cGy in 5 fx PLANNED DOSE: 5040 cGy in 28 fx SUBJECTIVE: Mrs. Wood is doing very well. Her appetite is good and she is maintaining her weight. EXAM: KPS: 90 General Appearance: Alert and oriented. No acute distress. Radiation dermatitis: No IMAGING/LAB RESULTS: Checked. Treatment chart checked: Yes Patient treatment site reviewed and verified:Yes Port films reviewed and current:Yes Medications started: None ASSESSMENT/PLAN: Clinically stable. Toxicity within expected parameters. Continue radiation treatment as planned. Farheen Cronin MD [facility] CNOVon 08-27-2017 CNOV Office Visit (RADTSA ) JOSS WASHINGTON ([id number]) 1950 F Date Time Provider Department 08/27/17 1:30 PM JEM SANTANA During your visit today, we recorded the following information about you: Dexter De León RN, RN 08/27/2017 2:20 PM Signed Status: Post-menopausal. CLARA Mahmood MD 09/12/2017 12:12 AM Signed RADIATION ONCOLOGY- ON TREATMENT REVIEW (OTR) NOTE PATIENT NAME: Joss Washington PATIENT DIAGNOSIS: DCIS?of the Right?breast, UIQ,?pathologic?stage 0 (Tis Nx M0),?ER-positive, SC-positive, s/p?partial mastectomy ? Plan and MU calculations reviewed and treatment chart checked. Intial verification sim and ports reviewed and approved. Radiation treatment course started today with first fraction delivered as planned without issue. COURSE: definitive AREA TREATED: Right breast CURRENT DOSE: 180 cGy in 1 fx PLANNED DOSE: 6120 cGy in 34 fx SUBJECTIVE: Tolerated first fraction of XRT well and reports no new issues since simulation. PHYSICAL EXAM: KPS: 90 General Appearance: Alert and oriented. No acute distress. Skin erythema/hyperpigmenta tion: No Desquamation: No TOXICITY ASSESSMENT (CTC v4.0): Fatigue: grade 0 - No symptoms Radiation dermatitis: grade 0 - No symptoms Treatment chart checked: Yes Patient treatment site reviewed and verified:Yes Port films reviewed and current:Yes Medications started: None ASSESSMENT/PLAN: Clinically stable. No signs of toxicity. Continue radiation treatment as planned. We reviewed skincare as well as general precautions during radiation treatment to the breast and encouraged the use of a good moisturizer in the treatment area. Discussed the importance of a well-balanced diet, hydration, and exercise/activity as tolerated through the course of treatment. Signed by: Jem Santana MD Referring Provider: JEM SANTANA [[id number]] Allergies As of Date: 08/27/2017 (No Known Allergies) Date Reviewed: 08/20/2017 Reviewed by: Raina Prescott - Fully Assessed Reason for Visit: Radiotherapy On-treatment Visit [1722] Primary Visit Diagnosis:Ductal carcinoma in situ (DCIS) of right breast [D05.11] Prescriptions as of 08/27/2017 Sig: VENTOLIN HFA 90 MCG/ACTUATION* CITALOPRAM 40 MG TABLET Take 40 mg by mouth once evangelina* DILTIAZEM 120 MG TABLET Take 120 mg by mouth three ti* LISINOPRIL 10 MG TABLET Take 10 mg by mouth once evangelina* MULTIVITAMIN CHEWABLE TABLET Take by mouth. Problem List As Of Date 08/27/2017 Noted Resolved Ductal carcinoma in situ (DCIS) of right breast*INVALID FOR* Visit Notes: >> Dexter Sykes) CLARA De León FriAugust 27, 2017 2:04 PM Status: Signed Status: Post-menopausal. Dexter De León RN Encounter Status:Closed by JEM SANTANA MD on 09/12/17 [facility] PROGRESSon 08-27-2017 Protein mass conc HNO ID: [id number] Author: Jem Santana Service: (none) Author Type: Physician Type: Progress Notes Filed: 09/12/2017 12:12 AM Note Text: RADIATION ONCOLOGY- ON TREATMENT REVIEW (OTR) NOTE PATIENT NAME: Joss Washington PATIENT DIAGNOSIS: DCIS?of the Right?breast, UIQ,?pathologic?stage 0 (Tis Nx M0),?ER-positive, SC-positive, s/p?partial mastectomy ? Plan and MU calculations reviewed and treatment chart checked. Intial verification sim and ports reviewed and approved. Radiation treatment course started today with first fraction delivered as planned without issue. COURSE: definitive AREA TREATED: Right breast CURRENT DOSE: 180 cGy in 1 fx PLANNED DOSE: 6120 cGy in 34 fx SUBJECTIVE: Tolerated first fraction of XRT well and reports no new issues since simulation. PHYSICAL EXAM: KPS: 90 General Appearance: Alert and oriented. No acute distress. Skin erythema/hyperpigmenta tion: No Desquamation: No TOXICITY ASSESSMENT (CTC v4.0): Fatigue: grade 0 - No symptoms Radiation dermatitis: grade 0 - No symptoms Treatment chart checked: Yes Patient treatment site reviewed and verified:Yes Port films reviewed and current:Yes Medications started: None ASSESSMENT/PLAN: Clinically stable. No signs of toxicity. Continue radiation treatment as planned. We reviewed skincare as well as general precautions during radiation treatment to the breast and encouraged the use of a good moisturizer in the treatment area. Discussed the importance of a well-balanced diet, hydration, and exercise/activity as tolerated through the course of treatment. Signed by: Jem Santana MD [facility] CT NON-RADIOLOGY -NBNRo n 08-20-[address] [facility] [address] NON-RADIOLOGY -NBNR [facility] - CT Images - Obtained Outside of Imaging [place] [id number] [facility] CNCNPATEDon 08-20-2017 CNCNPATED Education (RADTSA) JOSS WASHINGTON ([id number]) 1950 F Date Time Provider Department 08/20/17 ANATOLIY HA LPN Reason for Visit: Patient Education [91] Visit Notes: >> Anatoliy Ha RN FriAugust 20, 2017 3:46 PM Status: Signed Radiation Therapy - Patient Education Note PATIENT NAME: Joss Washington PATIENT August 20, 2017 [facility] FACILITY/LOCATION: [facility] READINESS TO LEARN Cognitive Ability: Alert and oriented Motivation to learn: Interested Family Support: High - Very involved in pt care Instruction provide to: Patient and Spouse Patient learns best by: Written Instruction - Hand-outs Verbal Instruction Factors effecting learning: None Physical limitations effecting learning: None LEARNING RESPONSE Diagnosis: Pt simulated today for radiation therapy to right breast. Education Topic/Teaching Points: Radiation therapy and Side effects: Method of instruction: Written instruction - handouts Verbal instruction Patient /Family response: Patient and family verbalized understanding of radiation treatments, side effects, OTV, and transportation. Follow-up plan: Recommend - Recommend continued instruction and follow up as directed Supplemental material: Informational handouts on Deodorant, Breast packet, Fatigue and Skin changes. Referral (recommendation): None, Pt denied need for social work, van service, and senior java web application developer. Was approved? No Signed by: Anatoliy Ha LPN Primary Visit Diagnosis:Ductal carcinoma in situ (DCIS) of right breast [D05.11] During your visit today, we recorded the following information about you: Allergies As of Date: 08/20/2017 (No Known Allergies) Date Reviewed: 08/20/2017 Reviewed by: Raina Prescott - Fully Assessed Prescriptions as of 08/20/2017 Sig: VENTOLIN HFA 90 MCG/ACTUATION* CITALOPRAM 40 MG TABLET Take 40 mg by mouth once evangelina* DILTIAZEM 120 MG TABLET Take 120 mg by mouth three ti* LISINOPRIL 10 MG TABLET Take 10 mg by mouth once evangelina* MULTIVITAMIN CHEWABLE TABLET Take by mouth. Encounter Status:Closed by ANATOLIY HA on 08/20/17 [facility] CNOVon 08-20-2017 CNOV Office Visit (RADTSA ) JOSS WASHINGTON ([id number]) 1950 F Date Time Provider Department 08/20/17 2:00 PM FARHEEN CRONIN During your visit today, we recorded the following information about you: Blood pressure Weight Height 146/86 132.9 kg 1.6 m Farheen Cronin MD 08/20/2017 3:39 PM Signed Radiation Oncology - New Patient/Consult Note PATIENT NAME: Joss Washington PATIENT REQUESTING PROVIDER: Dr. Katherine Downs DIAGNOSIS: 67 year old female with DCIS of the Right breast, UIQ, pathologic stage 0 (Tis Nx M0), ER-positive, SC-positive, s/p partial mastectomy. HPI: 67 year old female who presents with above diagnosis, for an opinion regarding the role of radiation therapy in the management of the patient's disease. Final recommendations will be communicated back to the requesting physician by way of the shared medical record, or letter to requesting physician via [place] mail. Mrs. Washington is a 67 years old white female who was found to have a 1.2 cm mass in the right breast on bilateral screening digital mammogram done on 06/06/2017. Diagnostic mammogram of the right breast with ultrasound done on 06/18/2017 showed a 6 x 4 x 3 mm lobular mass at 1:00 position suspicious for malignancy. The patient was seen by Dr. Berman. He performed lumpectomy of the right breast on 07/04/2017. Histological examination of the specimen was positive for ductal carcinoma in situ. Margins of resection were negative. Estrogen and progesterone receptor assays were positive. The patient was seen by Dr. Downs who did not recommend any hormonal treatment. Prior radiation therapy or collagen vascular disease: No status: Patient states there is no possibility she is at this time. Educated on risks of during treatment. ALLERGIES No Known Allergies PAST MEDICAL HISTORY Diagnosis Date - Anxiety - Chronic fatigue - DCIS (ductal carcinoma in situ) of breast 06/[address] Berman - Depression - Diabetes (HCC) - Diverticulitis - Eczema - Hypertension - Obesity PAST SURGICAL HISTORY Procedure Laterality Date - BREAST LUMPECTOMY HX 06/2017 right breast - CHOLECYSTECTOMY HX - CYSTOCELE REPAIR - HERNIA REPAIR HX - PAST SURGICAL HISTORY OF right rotator cuff - TONSILLECTOMY HX - TOTAL ABDOM HYSTERECTOMY FAMILY HISTORY Her mother has cancer of the breast. PERSONAL AND SOCIAL HISTORY: She smoked 1-1/2 packs of cigarettes per day for 5 years ? quit 42 years ago. She drinks alcohol rarely. She is and lives with her . 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 COMPLETE REVIEW OF SYSTEMS: GENERAL: Negative for weight loss, fevers, chills, or night sweats. HEENT: Negative for sudden vision or hearing changes. NECK: Negative for masses in the neck. RESPIRATORY: Negative for cough or shortness of breath. CARDIAC: Negative for chest pain, palpitations, murmurs, or syncopal episodes. GI: Negative for nausea, vomiting, diarrhea, constipation, blood per rectum, or melena. : Negative for dysuria, hematuria, urgency, frequency or incontinence. MUSCULOSKELETAL: Negative for limitations in movement, pain, or swelling. NEURO: Negative for dizziness, headache, weakness or numbness. HEMATOLOGIC: Negative for bleeding or easy bruising. SKIN: Negative for rashes or other skin changes. PHYSICAL EXAM: VS: BP 146/86 Ht 160 cm (5' 2.99 ) Wt 132.9 kg (293 lb) BMI 51.92 kg/m? KPS: 90 General Appearance: Alert and oriented. No acute distress. HEENT: NCAT. Sclera anicteric. PERRL. EOMI. Neck: Normal ROM. No palpable cervical or supraclavicular adenopathy. Chest: No respiratory distress. Lungs clear to auscultation bilaterally. Heart: Regular rate and rhythm. Abdomen: Soft. Nontender. Nondistended. Musculoskeletal: No edema. Normal ROM in extremities. No bone or spine tenderness. Neuro: Strength intact and symmetric. Sensation intact. CN II-XII intact. Gait normal. No focal deficits. Skin: No rashes noted Lymphatics: No palpable lymphadenopathy. Bilateral breasts are symmetric, without nipple inversion, skin changes, or dominant masses in either breast and no palpable masses in either breast. The surgical wound in the right breast is healing satisfactorily. ASSESSMENT AND PLAN: The patient had lumpectomy as she had opted for breast preservation procedure. She will need radiation treatments to the right breast as a part of total treatment plan. The program of radiation treatments and the possible side effects resulting from it were discussed with the patient and her in detail. Signed by: Farheen Cronin MD cc: Lawrence Rai MD [address] [place] [id number] Katherine Downs MD [facility] [address] [place] [address] Dr. Berman This note was dictated with Jazmin Naturally Speaking and may contain some grammatical errors due to limitations of the software. Referring Provider: KATHERINE DOWNS [[id number]] Allergies As of Date: 08/20/2017 (No Known Allergies) Date Reviewed: 08/20/2017 Reviewed by: Raina Prescott - Fully Assessed Reason for Visit: Breast Cancer [519] Cmt: New patient ref by Dr Downs Primary Visit Diagnosis:Ductal carcinoma in situ (DCIS) of right breast [D05.11] Prescriptions as of 08/20/2017 Sig: VENTOLIN HFA 90 MCG/ACTUATION* CITALOPRAM 40 MG TABLET Take 40 mg by mouth once evangelina* DILTIAZEM 120 MG TABLET Take 120 mg by mouth three ti* LISINOPRIL 10 MG TABLET Take 10 mg by mouth once evangelina* MULTIVITAMIN CHEWABLE TABLET Take by mouth. Problem List As Of Date 08/20/2017 Noted Resolved Ductal carcinoma in situ (DCIS) of right breast*INVALID FOR* Encounter Status:Closed by FARHEEN CRONIN MD on 08/20/17 Normal [facility] PROGRESSon 08-20-2017 Protein mass conc HNO ID: [id number] Author: Farheen Cronin Service: (none) Author Type: Physician Type: Progress Notes Filed: 08/20/2017 3:39 PM Note Text: Radiation Oncology - New Patient/Consult Note PATIENT NAME: Joss Washington PATIENT REQUESTING PROVIDER: Dr. Katherine Downs DIAGNOSIS: 67 year old female with DCIS of the Right breast, UIQ, pathologic stage 0 (Tis Nx M0), ER-positive, SC-positive, s/p partial mastectomy. HPI: 67 year old female who presents with above diagnosis, for an opinion regarding the role of radiation therapy in the management of the patient's disease. Final recommendations will be communicated back to the requesting physician by way of the shared medical record, or letter to requesting physician via US mail. Mrs. Washington is a 67 years old white female who was found to have a 1.2 cm mass in the right breast on bilateral screening digital mammogram done on 06/06/2017. Diagnostic mammogram of the right breast with ultrasound done on 06/18/2017 showed a 6 x 4 x 3 mm lobular mass at 1:00 position suspicious for malignancy. The patient was seen by Dr. Berman. He performed lumpectomy of the right breast on 07/04/2017. Histological examination of the specimen was positive for ductal carcinoma in situ. Margins of resection were negative. Estrogen and progesterone receptor assays were positive. The patient was seen by Dr. Downs who did not recommend any hormonal treatment. Prior radiation therapy or collagen vascular disease: No status: Patient states there is no possibility she is at this time. Educated on risks of during treatment. ALLERGIES No Known Allergies PAST MEDICAL HISTORY Diagnosis Date - Anxiety - Chronic fatigue - DCIS (ductal carcinoma in situ) of breast 06/[address] Berman - Depression - Diabetes (HCC) - Diverticulitis - Eczema - Hypertension - Obesity PAST SURGICAL HISTORY Procedure Laterality Date - BREAST LUMPECTOMY HX 06/2017 right breast - CHOLECYSTECTOMY HX - CYSTOCELE REPAIR - HERNIA REPAIR HX - PAST SURGICAL HISTORY OF right rotator cuff - TONSILLECTOMY HX - TOTAL ABDOM HYSTERECTOMY FAMILY HISTORY Her mother has cancer of the breast. PERSONAL AND SOCIAL HISTORY: She smoked 1-1/2 packs of cigarettes per day for 5 years ? quit 42 years ago. She drinks alcohol rarely. She is and lives with her . 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 COMPLETE REVIEW OF SYSTEMS: GENERAL: Negative for weight loss, fevers, chills, or night sweats. HEENT: Negative for sudden vision or hearing changes. NECK: Negative for masses in the neck. RESPIRATORY: Negative for cough or shortness of breath. CARDIAC: Negative for chest pain, palpitations, murmurs, or syncopal episodes. GI: Negative for nausea, vomiting, diarrhea, constipation, blood per rectum, or melena. : Negative for dysuria, hematuria, urgency, frequency or incontinence. MUSCULOSKELETAL: Negative for limitations in movement, pain, or swelling. NEURO: Negative for dizziness, headache, weakness or numbness. HEMATOLOGIC: Negative for bleeding or easy bruising. SKIN: Negative for rashes or other skin changes. PHYSICAL EXAM: VS: BP 146/86 Ht 160 cm (5' 2.99 ) Wt 132.9 kg (293 lb) BMI 51.92 kg/m? KPS: 90 General Appearance: Alert and oriented. No acute distress. HEENT: NCAT. Sclera anicteric. PERRL. EOMI. Neck: Normal ROM. No palpable cervical or supraclavicular adenopathy. Chest: No respiratory distress. Lungs clear to auscultation bilaterally. Heart: Regular rate and rhythm. Abdomen: Soft. Nontender. Nondistended. Musculoskeletal: No edema. Normal ROM in extremities. No bone or spine tenderness. Neuro: Strength intact and symmetric. Sensation intact. CN II-XII intact. Gait normal. No focal deficits. Skin: No rashes noted Lymphatics: No palpable lymphadenopathy. Bilateral breasts are symmetric, without nipple inversion, skin changes, or dominant masses in either breast and no palpable masses in either breast. The surgical wound in the right breast is healing satisfactorily. ASSESSMENT AND PLAN: The patient had lumpectomy as she had opted for breast preservation procedure. She will need radiation treatments to the right breast as a part of total treatment plan. The program of radiation treatments and the possible side effects resulting from it were discussed with the patient and her in detail. Signed by: Farheen Cronin MD cc: Lawrence Rai MD [address] [place] [id number] Katherine Downs MD [facility] [address] [place] [address] Dr. Berman This note was dictated with Dragon Naturally Speaking and may contain some grammatical errors due to limitations of the software. 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 FIXATION DEVICE: In order to achieve accurate and reproducible treatments, the patient is immobilized with wingboard AND breastboard. A time-out was conducted and recorded by the therapist. CT scan was completed for target localization and planning. Field arrangement will be determined after plan has been completed. The patient is scheduled for a verification simulation on the treatment machine to ensure proper set-up and field arrangement is correct prior to the first treatment of primary and boost bhatia if applicable. Patient education will be completed per nursing. Electronically Signed Farheen Cronin M.D. / NRS 08/20/20173:59 PM Normal [facility] Protein mass conc HNO ID: [id number] Author: Farheen Cronin Service: (none) Author Type: Physician Type: Progress Notes Filed: 08/27/2017 12:34 AM Note Text: JOSS WASHINGTON [id number] 08/20/2017 [facility] Department of Radiation Oncology Treatment Planning Note For reasons stated in the consult note, Joss Washington is a candidate for radiation therapy. Based on review and interpretation of the relevant diagnostic studies together with the exam findings, Joss Washington was simulated on 08/20/2017 at which time the target volume and/or requisite bhatia were delineated, as indicated in the simulation note, to be treated according to the prescription. The treatment target and organs at risk were contoured on the simulation scan. Special consideration to these and other structures was given in light of the potential for increased toxicities. . After reviewing multiple treatment plans with dosimetry, the best plan was approved to deliver the prescribed course of radiation to the target area using 3D planning to allow for the best isodose distribution, treating to the 98% isodose line with 18MV and 2 bhatia. Custom MLC asym jaws were the treatment devices used to shape/modify the beams. Limiting dose to normal tissue was confirmed upon review of the calculated dose volume histogram. A completed summary of this plan dated 08/26/17 incorporated herein by reference includes dose, beam arrangements, energy, blocking, isodose distribution, and/or ports and DVH. Electronically Signed Farheen Cronin M.D. 08/26/20171:02 PM [facility] CNOVSPon 08-14-2017 CNOVSP Visit (SP) Office ([facility]) JOSS WASHINGTON ([id number]) 1950 F Date Time Provider Department 08/14/17 1:45 PM KATHERINE DOWNS During your visit today, we recorded the following information about you: Temperature Pulse Respiration Blood pressure 98.3 degrees 71/minute 18/minute 150/68 Weight Height 132.2 kg 1.6 m Katherine Downs MD 08/14/2017 2:27 PM Signed HPI Joss Washington is a 67 year old female who presents consultation today August 14, 2017 with ductal carcinoma in situ. She was taken to surgery by Dr. Berman for a mammographic abnormality and found to have ductal carcinoma in situ. She is referred here for consideration of adjuvant therapy. She has no history of breast cancer. The cancer is ER positive. PAST MEDICAL HISTORY Diagnosis Date - Anxiety - Chronic fatigue - DCIS (ductal carcinoma in situ) of breast 06/[address] Berman - Depression - Diabetes (HCC) - Diverticulitis - Eczema - Hypertension - Obesity PAST SURGICAL HISTORY Procedure Laterality Date - BREAST LUMPECTOMY HX 06/2017 right breast - CHOLECYSTECTOMY HX - CYSTOCELE REPAIR - HERNIA REPAIR HX - PAST SURGICAL HISTORY OF right rotator cuff - TONSILLECTOMY HX - TOTAL ABDOM HYSTERECTOMY No family history on file. Current Outpatient Prescriptions: VENTOLIN HFA 90 mcg/actuation inhaler citalopram (CELEXA) 40 mg tablet Take 40 mg by mouth once daily. diltiazem (CARDIZEM) 120 mg tablet Take 120 mg by mouth three times daily. lisinopril (ZESTRIL, PRINIVIL) 10 mg tablet Take 10 mg by mouth once daily. Multivitamins chew Take by mouth. No current facility-administered medications for this visit. ALLERGIES No Known Allergies REVIEW OF SYSTEMS GENERAL: No weight loss, malaise or fevers., SEE HPI HEENT: Negative for frequent or significant headaches, No changes in hearing or vision, no nose bleeds or other nasal problems NECK: Negative for lumps, goiter, pain and significant neck swelling RESPIRATORY: Negative for cough, wheezing or shortness of breath. CARDIOVASCULAR: Negative for chest pain, leg swelling or palpitations. GI: Negative for abdominal discomfort, blood in stools or black stools or change in bowel habits MUSCULOSKELETAL: Negative for joint pain or swelling, back pain or muscle pain. SKIN: Negative for lesions, rash, and itching. PSYCH: Negative for sleep disturbance, mood disorder and recent psychosocial stressors. HEMATOLOGY/LYMPHOLOGY: Negative for prolonged bleeding, bruising easily or swollen nodes. NEURO: No history of headaches, syncope, paralysis, seizures or tremors All other reviewed and negative other than HPI. PHYSICAL EXAM: BP 150/68 Pulse 71 Temp 36.8 ?C (98.3 ?F) (Oral) Resp 18 Ht 160 cm (5' 3 ) Wt 132.2 kg (291 lb 8 oz) SpO2 95% BMI 51.64 kg/m? General Appearance: alert and oriented, appearing in no acute distress Skin: skin color, texture, turgor normal, no suspicious rashes or lesions. Head: normal. Eyes: Anicteric sclera. Pupils are equally round. Extraocular movements are intact. . Ears: external ears normal Neck: Supple, no adenopathy; thyroid symmetric, normal size, no bruits. Back:no pain with ambulation Lungs: good air exchange overall Heart: RRR Abdomen: No obvious evidence of rebound tenderness or guarding Extremities: Extremities normal. No deformities, edema, or skin discoloration. Good capillary refill.. Musculoskeletal: Spine range of motion normal. Muscular strength intact. Peripheral Pulses: Normal. Neurologic: Gait normal. No gross cerebellar defects Psychiatric: the patient has an appropriate affect No results found for: HB, HCT, WBC, PLT ASSESSMENT/PLAN: 1. Ductal carcinoma in situ (DCIS) of right breast - ICD9: 233.0, ICD10: D05.11 Patient has had excision of ductal carcinoma in situ, with the size of tumor at least 2 mm, in minute quantities. The cancer is ER positive. In my opinion, given her age I would not recommend to her adjuvant hormonal therapy as it has not been definitively shown that there is a survival benefit with hormonal therapy in this situation and given the patient's age older than 60, my concern that the risk/ benefit analysis of adjuvant hormonal therapy may potentially be higher in the risk and side effects of hormonal therapy. I will not recommend to her hormonal therapy. She will need to see radiation oncology. I will make that referral today. No follow-up with me is needed. - RAD/ONC CONSULT Katherine Downs MD Referring Provider: GEREMIAS BERMAN [[id number]] Allergies As of Date: 08/14/2017 (No Known Allergies) Date Reviewed: 08/14/2017 Reviewed by: Iesha Luis - Fully Assessed Primary Visit Diagnosis:Ductal carcinoma in situ (DCIS) of right breast [D05.11] Order(s):RAD/ONC CONSULT [9037] Order #: [id number]: 1 Prescriptions as of 08/14/2017 Sig: VENTOLIN HFA 90 MCG/ACTUATION* CITALOPRAM 40 MG TABLET Take 40 mg by mouth once evangelina* DILTIAZEM 120 MG TABLET Take 120 mg by mouth three ti* LISINOPRIL 10 MG TABLET Take 10 mg by mouth once evangelina* MULTIVITAMIN CHEWABLE TABLET Take by mouth. Problem List As Of Date 08/14/2017 Noted Resolved Ductal carcinoma in situ (DCIS) of right breast*INVALID FOR* Encounter Status:Closed by KATHERINE DOWNS MD on 08/14/17 Normal [facility] PROGRESSon 08-14-2017 Protein mass conc HNO ID: [id number] Author: Katherine Downs Service: (none) Author Type: Physician Type: Progress Notes Filed: 08/14/2017 2:27 PM Note Text: HPI Joss Washington is a 67 year old female who presents consultation today August 14, 2017 with ductal carcinoma in situ. She was taken to surgery by Dr. Berman for a mammographic abnormality and found to have ductal carcinoma in situ. She is referred here for consideration of adjuvant therapy. She has no history of breast cancer. The cancer is ER positive. PAST MEDICAL HISTORY Diagnosis Date - Anxiety - Chronic fatigue - DCIS (ductal carcinoma in situ) of breast 06/[address] Berman - Depression - Diabetes (HCC) - Diverticulitis - Eczema - Hypertension - Obesity PAST SURGICAL HISTORY Procedure Laterality Date - BREAST LUMPECTOMY HX 06/2017 right breast - CHOLECYSTECTOMY HX - CYSTOCELE REPAIR - HERNIA REPAIR HX - PAST SURGICAL HISTORY OF right rotator cuff - TONSILLECTOMY HX - TOTAL ABDOM HYSTERECTOMY No family history on file. Current Outpatient Prescriptions: VENTOLIN HFA 90 mcg/actuation inhaler citalopram (CELEXA) 40 mg tablet Take 40 mg by mouth once daily. diltiazem (CARDIZEM) 120 mg tablet Take 120 mg by mouth three times daily. lisinopril (ZESTRIL, PRINIVIL) 10 mg tablet Take 10 mg by mouth once daily. Multivitamins chew Take by mouth. No current facility-administered medications for this visit. ALLERGIES No Known Allergies REVIEW OF SYSTEMS GENERAL: No weight loss, malaise or fevers., SEE HPI HEENT: Negative for frequent or significant headaches, No changes in hearing or vision, no nose bleeds or other nasal problems NECK: Negative for lumps, goiter, pain and significant neck swelling RESPIRATORY: Negative for cough, wheezing or shortness of breath. CARDIOVASCULAR: Negative for chest pain, leg swelling or palpitations. GI: Negative for abdominal discomfort, blood in stools or black stools or change in bowel habits MUSCULOSKELETAL: Negative for joint pain or swelling, back pain or muscle pain. SKIN: Negative for lesions, rash, and itching. PSYCH: Negative for sleep disturbance, mood disorder and recent psychosocial stressors. HEMATOLOGY/LYMPHOLOGY: Negative for prolonged bleeding, bruising easily or swollen nodes. NEURO: No history of headaches, syncope, paralysis, seizures or tremors All other reviewed and negative other than HPI. PHYSICAL EXAM: BP 150/68 Pulse 71 Temp 36.8 ?C (98.3 ?F) (Oral) Resp 18 Ht 160 cm (5' 3 ) Wt 132.2 kg (291 lb 8 oz) SpO2 95% BMI 51.64 kg/m? General Appearance: alert and oriented, appearing in no acute distress Skin: skin color, texture, turgor normal, no suspicious rashes or lesions. Head: normal. Eyes: Anicteric sclera. Pupils are equally round. Extraocular movements are intact. . Ears: external ears normal Neck: Supple, no adenopathy; thyroid symmetric, normal size, no bruits. Back:no pain with ambulation Lungs: good air exchange overall Heart: RRR Abdomen: No obvious evidence of rebound tenderness or guarding Extremities: Extremities normal. No deformities, edema, or skin discoloration. Good capillary refill.. Musculoskeletal: Spine range of motion normal. Muscular strength intact. Peripheral Pulses: Normal. Neurologic: Gait normal. No gross cerebellar defects Psychiatric: the patient has an appropriate affect No results found for: HB, HCT, WBC, PLT ASSESSMENT/PLAN: 1. Ductal carcinoma in situ (DCIS) of right breast - ICD9: 233.0, ICD10: D05.11 Patient has had excision of ductal carcinoma in situ, with the size of tumor at least 2 mm, in minute quantities. The cancer is ER positive. In my opinion, given her age I would not recommend to her adjuvant hormonal therapy as it has not been definitively shown that there is a survival benefit with hormonal therapy in this situation and given the patient's age older than 60, my concern that the risk/ benefit analysis of adjuvant hormonal therapy may potentially be higher in the risk and side effects of hormonal therapy. I will not recommend to her hormonal therapy. She will need to see radiation oncology. I will make that referral today. No follow-up with me is needed. - RAD/ONC CONSULT Katherine Downs MD [facility] US-US GUIDE LOCAL BREAST RT IMPORTon 07-04-2017 US-US GUIDE LOCAL BREAST RT IMPORT Images were obtained outside of [facility] [id number] [facility] MAMM OUTSIDE DICOM IMPORT -N BNRon 06-18-2017 MAMM OUTSIDE DICOM IMPORT -NBNR Images were obtained outside of [facility] [id number] [facility] Encounters Encounter Date Encounter Type Care Provider Facility Start: 03-16-2022 End: 03-17-[address] LAWRENCE RAI Facility:[facility] Start: 02-28-[address] LAWRENCE RAI Facility :[facility] Start: 02-08-2022 End: 02-09-[address] LAWRENCE RAI Facility:[facility] Start: 11-30-2021 End: 12-01-[address] LAWRENCE RAI Facility:[facility] Start: 06-11-2018 End: 06-15-2018 Patient encounter procedure FARHEEN CRONIN [facility] Start: 02-12-2018 End: 02-13-2018 Patient encounter procedure FARHEEN CRONIN [facility] Start: 12-04-2017 End: 12-11-2017 Patient encounter procedure LISA (BOOM STICK MAN) ЕКАТЕРИНА [facility] Start: 10-30-2017 End: 10-30-2017 Patient encounter procedure FARHEEN CRONIN [facility] Start: 10-15-2017 End: 10-20-2017 Patient encounter procedure KATHERINE DOWNS [facility] Start: 10-14-2017 End: 10-14-2017 Patient encounter procedure FARHEEN CRONIN [facility] Start: 10-13-2017 End: 10-15-2017 Patient encounter procedure KATHERINE DOWNS [facility] Start: 10-09-2017 End: 10-30-2017 Patient encounter procedure KATHERINE DOWNS [facility] Start: 10-08-2017 End: 10-10-2017 Patient encounter procedure KATEHRINE DOWNS [facility] Start: 10-07-2017 End: 10-07-2017 Patient encounter procedure FARHEEN CRONIN [facility] Start: 10-06-2017 End: 10-10-2017 Patient encounter procedure KATHERINE DOWNS [facility] Start: 10-03-2017 End: 10-08-2017 Patient encounter procedure KATHERINE DOWNS [facility] Start: 10-02-2017 End: 10-20-2017 Patient encounter procedure KATHERINE DOWNS [facility] Start: 09-30-2017 End: 09-30-2017 Patient encounter procedure FARHEEN CRONIN [facility] Start: 09-29-2017 End: 10-06-2017 Patient encounter procedure KATHERINE DOWNS [facility] Start: 09-26-2017 End: 10-02-2017 Patient encounter procedure KATHERINE DOWNS [facility] Start: 09-25-2017 End: 09-29-2017 Patient encounter procedure KATHERINE DOWNS [facility] Start: 09-24-2017 End: 10-06-2017 Patient encounter procedure KATHERINE DOWNS [facility] Start: 09-23-2017 End: 09-29-2017 Patient encounter procedure KATHERINE DOWNS [facility] Start: 09-22-2017 End: 09-22-2017 Patient encounter procedure FARHEEN CRONIN [facility] Start: 09-19-2017 End: 09-22-2017 Patient encounter procedure KATHERINE DOWNS [facility] Start: 09-18-2017 End: 09-18-2017 Patient encounter procedure FARHEEN CRONIN [facility] Start: 09-17-2017 End: 09-30-2017 Patient encounter procedure KATHERINE DOWNS [facility] Start: 09-16-2017 End: 09-16-2017 Patient encounter procedure FARHEEN CRONIN [facility] Start: 09-15-2017 End: 09-17-2017 Patient encounter procedure KATHERINE DOWNS [facility] Start: 09-12-2017 End: 09-17-2017 Patient encounter procedure KATHERINE DOWNS [facility] Start: 09-11-2017 End: 09-15-2017 Patient encounter procedure KATHERINE DOWNS [facility] Start: 09-10-2017 End: 09-22-2017 Patient encounter procedure KATHERINE DOWNS [facility] Start: 09-09-2017 End: 09-15-2017 Patient encounter procedure KATHERINE DOWNS [facility] Start: 09-08-2017 End: 09-08-2017 Patient encounter procedure JEM SANTANA [facility] Start: 09-05-2017 End: 09-15-2017 Patient encounter procedure KATHERINE DOWNS [facility] Start: 09-04-2017 End: 09-04-2017 Patient encounter procedure ZULEMAAdrián Celeste CRONIN [facility] Start: 09-03-2017 End: 09-15-2017 Patient encounter procedure KATHERINE DOWNS [facility] Start: 09-02-2017 End: 09-02-2017 Patient encounter procedure FARHEEN CRONIN [facility] Start: 09-01-2017 End: 09-04-2017 Patient encounter procedure KATHERINE DOWNS [facility] Start: 08-29-2017 End: 09-01-2017 Patient encounter procedure KATHERINE DOWNS [facility] Start: 08-28-2017 End: 09-01-2017 Patient encounter procedure KATHERINE DOWNS [facility] Start: 08-27-2017 End: 08-27-2017 Patient encounter procedure JEM SANTANA [facility] Start: 08-20-2017 End: 08-21-2017 Patient encounter procedure ZULEMAAdrián Celeste BARBOSAI [facility] Start: 08-14-2017 End: 08-15-2017 Patient encounter procedure [facility] Payers Date Payer Category Payer Medicare [id number] 1958 Self-pay [id number] 1958 Unknown [id number] 1950 Unknown [id number] 2.16.84 [id number] 1950 Unknown [id number] 2.16.84 [id number] 1950 Unknown [id number] 2.16.84 [id number] 1950 Unknown [id number] 2.16.84 [id number] Summary Purpose Family History No Family History Records FoundNo Family History Records FoundNo Family History Records Found Advance Directives No Advanced Directives Records FoundNo Advanced Directives Records FoundNo Advanced Directives Records Found Additional Source Comments INFORMATION SOURCE (unrecogn ized section and content) DATE CREATED AUTHOR 06/15/2018 [facility] DATE CREATED AUTHOR AUTHOR'S ORGANIZ ATION 07/26/2019 [facility] DATE CREATED AUTHOR AUTHOR'S ORGANIZ ATION 03/22/2022 Tanya [facility] FOR RECORDS PERTAINING TO PATIENTS WHO ARE OR HAVE BEEN ENROLLED IN A CHEMICAL DEPENDENCY/SUBSTANCEABUSE PROGRAM, SOME INFORMATION MAY BE OMITTED. This clinical summary was aggregated from multiple sources. Caution should be exercised in using it in the provision of clinical care. This summary normalizes information from multiple sources, and as a consequence, information in this document may materially change the coding, format and clinical context of patient data. In addition, data may be omitted in some cases. CLINICAL DECISIONS SHOULD BE BASED ON THE PRIMARY CLINICAL RECORDS. [employer] provides no warranty or guarantee of the accuracy or completeness of information in this document.
== END 2023-10-24 06:59 | disposition home or self-care (01) ==
LOC: MAMMO 06:58
PROVIDERS: PCP Family Medicine; Visit Provider Family Medicine
DX: Z12.31 Encounter for screening mammogram for malignant neoplasm of breast (principal); Z80.3 Family history of malignant neoplasm of breast; Z80.1 Family history of malignant neoplasm of trachea, bronchus and lung; Z80.8 Family history of malignant neoplasm of other organs or systems
CPT/HCPCS: 77063; 77067

== ENCOUNTER 2024-01-05 07:19 | Outpatient (OUT) | payer MEDICARE, OTHER, SELFPAY ==
--- OUTSIDE RECORDS SUMMARY | 2024-01-05 07:25 | XMS_ITS | CCD ---
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 Admission #: [id number] Family : Order #: [id number] CLICK HERE TO VIEW EXAM RADIOLOGY REPORT [...] brain cancer at age 69. LOCATION: [facility] BREAST COMPOSITION: Scattered areas fibroglandular density. FINDINGS: [...] Lima M.D. on 02/08/2022 at 08:46 Normal [facility] T4, T3U, FTI LABCORPon 12-01 Free Thyroxine Index 1.7 Normal 1.2-4.9 [facility] Comment on above: Performed By: #### T HYLC #### [facility] [address] [place] [address] Dr. Sheldon Cordero T3 Uptake 27 % Normal 24-39 [facility] Comment on above: Performed By: #### T HYLC #### [facility] [address] [place] [address] Dr. Sheldon Cordero T4 [Mass/Vol] 6.4 ug/dL Normal 4.5-12.0 [facility] Comment on above: Performed By: #### T HYLC #### [facility] [address] [place] [address] Dr. Sheldon Cordero CBC AUTO DIFFon 11-30-2021 BASO # 0.1 103/ul Normal 0.0-0.1 [facility] Comment on above: Performed By: #### C BC #### [facility] [address] [place] [address] Dr. Sheldon oCrdero Basophils/100 WBC (Bld) 0.8 % Normal 0.2-2.0 [facility] Comment on above: Performed By: #### C BC #### [facility] [address] [place] [address] Dr. Sheldon Cordero EO # 0.3 103/ul Normal 0.0-0.7 [facility] Comment on above: Performed By: #### C BC #### [facility] [address] [place] [address] Dr. Sheldon Cordero Eosinophils/100 WBC (Bld) 3.8 % Normal 0.9-7.0 [facility] Comment on above: Performed By: #### C BC #### [facility] [address] [place] [address] Dr. Sheldon Cordero Erythrocyte distribution width (RBC) [Ratio] 14.6 % Normal 11.0-15.0 [facility] Comment on above: Performed By: #### C BC #### [facility] [address] [place] [address] Dr. Sheldon Cordero Hematocrit (Bld) [Volume fraction] 39.3 % Normal 36.0-48.0 [facility] Comment on above: Performed By: #### C BC #### [facility] [address] [place] [address] Dr. Sheldon Cordero Hemoglobin (Bld) [Mass/Vol] 12.4 g/dL Normal 12.0-16.0 [facility] Comment on above: Performed By: #### C BC #### [facility] [address] [place] [address] Dr. Sheldon Cordero IG # 0.08 10e3/ul Critically high 0.00-0.03 [facility] Comment on above: Performed By: #### C BC #### [facility] [address] [place] [address] Dr. Sheldon Cordero IG % 1.1 % Critically high 0.0-0.5 [facility] Comment on above: Performed By: #### C BC #### [facility] [address] [place] [address] Dr. Sheldon Cordero LYMPH # 1.8 103/ul Normal 1.2-3.8 [facility] Comment on above: Performed By: #### C BC #### [facility] [address] [place] [address] Dr. Sheldon Cordero Lymphocytes/100 WBC (Bld) 25.1 % Normal 20.5-60.0 [facility] Comment on above: Performed By: #### C BC #### [facility] [address] [place] [address] Dr. Sheldno Cordero MANUAL DIFF REQ NO Normal [facility] Comment on above: Performed By: #### C BC #### [facility] [address] [place] [address] Dr. Sheldon Cordero MCH (RBC) [Entitic mass] 29.6 pg Normal 26.7-34.0 [facility] Comment on above: Performed By: #### C BC #### [facility] [address] [address] [address] Sheldon Cordero MCHC (RBC) [Mass/Vol] 31.6 g/dL Normal 29.9-35.2 [facility] Comment on above: Performed By: #### C BC #### [facility] [address] [address] [address] Sheldon Cordero MCV (RBC) [Entitic vol] 93.8 fL Normal 81.0-99.0 [facility] Comment on above: Performed By: #### C BC #### [facility] [address] [address] [address] Sheldon Cordero MONO # 0.4 103/ul Normal 0.3-0.8 [facility] Comment on above: Performed By: #### C BC #### [facility] [address] [address] [address] Sheldon Cordero Monocytes/100 WBC (Bld) 5.8 % Normal 1.7-12.0 [facility] Comment on above: Performed By: #### C BC #### [facility] [address] [address] [address] Sheldon Cordero NEUT # 4.6 103/ul Normal 1.4-6.5 [facility] Comment on above: Performed By: #### C BC #### [facility] [address] [address] [address] Sheldon Cordero Neutrophils/100 WBC (Bld) 63.4 % Normal 43.0-75.0 [facility] Comment on above: Performed By: #### C BC #### [facility] [address] [address] [address] Sheldon Cordero Platelet mean volume (Bld) [Entitic vol] 8.9 fL Critically low 9.5-13.5 [facility] Comment on above: Performed By: #### C BC #### [facility] [address] [address] [address] Sheldon Cordero PLT 277 103/ul Normal 150-450 [facility] Comment on above: Performed By: #### C BC #### [facility] [address] [address] [address] Sheldon Cordero RBC 4.19 106/ul Critically low 4.20-5.40 [facility] Comment on above: Performed By: #### C BC #### [facility] [address] [place] [address] Dr. Sheldon Cordero WBC 7.2 103/ul Normal 4.0-11.0 [facility] Comment on above: Performed By: #### C BC #### [facility] [address] [place] [address] Dr. Sheldon Cordero GLYCOHEMOGLOBIN A1Con 2021 ADA RECOMMENDATION SEE BELOW Normal [facility] Comment on above: Result Comment: ADA RECOMMENDED LIMIT 4.0 - 6.0 ADA THERAPEUTIC TARGET < 7.0 ACTION SUGGESTED > 7.0 Performed By: #### A 1C #### [facility] [address] [place] [address] Dr. Sheldon Cordero Glucose [Mass/Vol] 128 mg/dL Normal [facility] Comment on above: Performed By: #### A 1C #### [facility] [address] [place] [address] Dr. Sheldon Cordero HbA1c (Bld) [Mass fraction] 6.1 % Normal 4.5-6.2 [facility] Comment on above: Performed By: #### A 1C #### [facility] [address] [place] [address] Dr. Sheldon Cordero IRONon 11-30-2021 Iron [Mass/Vol] 58.0 ug/dL Normal 50.0-170.0 [facility] Comment on above: Performed By: #### I GERMAN #### [facility] [address] [place] [address] Dr. Sheldon Cordero LIPID PROFILEon 11-30-2021 CHOL-HDL RATIO NORM SEE BELOW Normal [facility] Comment on above: Result Comment: 3.3 - 4.4 LOW RISK 4.4 - 7.1 AVERAGE RISK 7.1 - 11.0 MODERATE RISK >11.0 HIGH RISK Performed By: #### L IPID, TSH, CMP #### [facility] [address] [address] [address] Sheldon Cordero Cholesterol [Mass/Vol] 251 mg/dL Critically high <=200 [facility] Comment on above: Performed By: #### L IPID, TSH, CMP #### [facility] [address] [address] [address] Sheldon Cordero Cholesterol in HDL [Mass/Vol] 70 mg/dL Critically high 40-60 [facility] Comment on above: Performed By: #### L IPID, TSH, CMP #### [facility] [address] [address] [address] Sheldon Cordero Cholesterol in LDL [Mass/Vol] 161.4 mg/dL Normal [facility] Comment on above: Performed By: #### L IPID, TSH, CMP #### [facility] [address] [address] [address] Sheldon Cordero Cholesterol.total/Ch olesterol in HDL [Mass ratio] 3.6 {ratio} Normal [facility] Comment on above: Performed By: #### L IPID, TSH, CMP #### [facility] [address] [address] [address] Sheldon Cordero HDL NORMAL > or = 60 mg/dl - LO W CARDIOVASCULAR RISK <40 mg/dl - HIGH CARDIOVASCULAR RISK Normal [facility] Comment on above: Performed By: #### L IPID, TSH, CMP #### [facility] [address] [address] [address] Sheldon Cordero LDL CALC NORMAL SEE BELOW Normal [facility] Comment on above: Result Comment: <100 mg/dl OPTIMAL 100 - 129 mg/dl NEAR OR ABOVE OPTIMAL 130 - 159 mg/dl BORDERLINE HIGH 160 - 189 mg/dl HIGH >190 mg/dl VERY HIGH Performed By: #### L IPID, TSH, CMP #### [facility] [address] [address] [address] Sheldon Cordero Triglyceride [Mass/Vol] 98 mg/dL Normal <=150 [facility] Comment on above: Performed By: #### L IPID, TSH, CMP #### [facility] [address] [address] [address] Sheldon Cordero VLDL CALC 19.6 mg/dL Normal [facility] Comment on above: Performed By: #### L IPID, TSH, CMP #### [facility] [address] [address] [address] Sheldon Cordero PROF 14(COMP METB)on 022 Albumin [Mass/Vol] 3.4 g/dL Normal 3.4-5.0 [facility] Comment on above: Performed By: #### L IPID, TSH, CMP #### [facility] [address] [address] [address] Sheldon Cordero Albumin/Globulin [Mass ratio] 0.9 {ratio} Normal [facility] Comment on above: Performed By: #### L IPID, TSH, CMP #### [facility] [address] [address] [address] Sheldon Cordero ALP [Catalytic activity/Vol] 107 U/L Normal 46-116 [facility] Comment on above: Performed By: #### L IPID, TSH, CMP #### [facility] [address] [address] [address] Sheldon Cordero ALT [Catalytic activity/Vol] 17 U/L Normal 14-59 [facility] Comment on above: Performed By: #### L IPID, TSH, CMP #### [facility] [address] [address] [address] Sheldon Cordero Anion gap [Moles/Vol] 10.9 mmol/L Normal [facility] Comment on above: Performed By: #### L IPID, TSH, CMP #### [facility] [address] [address] [address] Sheldon Cordero AST [Catalytic activity/Vol] 11 U/L Critically low 15-37 [facility] Comment on above: Performed By: #### L IPID, TSH, CMP #### [facility] [address] [address] [address] Sheldon Cordero Bilirubin [Mass/Vol] 0.3 mg/dL Normal 0.2-1.0 [facility] Comment on above: Performed By: #### L IPID, TSH, CMP #### [facility] [address] [address] [address] Sheldon Cordero Calcium [Mass/Vol] 9.1 mg/dL Normal 8.5-10.1 [facility] Comment on above: Performed By: #### L IPID, TSH, CMP #### [facility] [address] [place] [address] Dr. Sheldon Cordero Chloride [Moles/Vol] 106 mmol/L Normal 98-107 [facility] Comment on above: Performed By: #### L IPID, TSH, CMP #### [facility] [address] [place] [address] Dr. Sheldon Cordero CO2 [Moles/Vol] 30.6 mmol/L Normal 21.0-32.0 [facility] Comment on above: Performed By: #### L IPID, TSH, CMP #### [facility] [address] [place] [address] Dr. Sheldon Cordero Creatinine [Mass/Vol] 0.93 mg/dL Normal 0.55-1.02 [facility] Comment on above: Performed By: #### L IPID, TSH, CMP #### [facility] [address] [place] [address] Dr. Sheldon Cordero EGFR-AF BELARUSIAN >60 Normal >=60 [facility] Comment on above: Performed By: #### L IPID, TSH, CMP #### [facility] [address] [place] [address] Dr. Sheldon Cordero EGFR-NON AF BELARUSIAN =60 Normal >=60 [facility] Comment on above: Performed By: #### L IPID, TSH, CMP #### [facility] [address] [place] [address] Dr. Sheldon Cordero Globulin (S) [Mass/Vol] 4.0 g/dL Normal [facility] Comment on above: Performed By: #### L IPID, TSH, CMP #### [facility] [address] [place] [address] Dr. Sheldon Cordero Glucose [Mass/Vol] 101 mg/dL Normal 74-106 [facility] Comment on above: Performed By: #### L IPID, TSH, CMP #### [facility] [address] [place] [address] Dr. Sheldon Cordero Potassium [Moles/Vol] 4.5 mmol/L Normal 3.5-5.1 [facility] Comment on above: Performed By: #### L IPID, TSH, CMP #### [facility] [address] [address] [address] Sheldon Cordero Protein [Mass/Vol] 7.4 g/dL Normal 6.4-8.2 [facility] Comment on above: Performed By: #### L IPID, TSH, CMP #### [facility] [address] [place] [address] Dr. Sheldon Cordero Sodium [Moles/Vol] 143 mmol/L Normal 136-145 [facility] Comment on above: Performed By: #### L IPID, TSH, CMP #### [facility] [address] [place] [address] Dr. Sheldon Cordero Urea nitrogen [Mass/Vol] 18.0 mg/dL Normal 7.0-18.0 [facility] Comment on above: Performed By: #### L IPID, TSH, CMP #### [facility] [address] [place] [address] Dr. Sheldon Cordero Urea nitrogen/Creatinine [Mass ratio] 19.4 mg/mg Normal [facility] Comment on above: Performed By: #### L IPID, TSH, CMP #### [facility] [address] [place] [address] Dr. Sheldon Cordero TSHon 11-30-2021 TSH 2.774 uIU/mL Normal 0.358-3.740 [facility] Comment on above: Performed By: #### L IPID, TSH, CMP #### [facility] [address] [place] [address] Dr. Sheldon Cordero Lactic Acidon 11-02-2018 Lactate [Mass/Vol] 7.5 mg/dL Normal 4.5-19.8 [facility] Comment on above: Performed By: #### 2 [id number] #### [facility] [address] [address] CNOVon 06-11-2018 CNOV Office Visit (RADTSA ) JOSS WASHINGTON ([id number]) 1950 F Date Time Provider Department 06/11/18 [...] pathologic stage 0 (Tis Nx ?M0), ER-positive, IA-positive, s/p partial mastectomy ? ? INTERVAL HISTORY: [...] M.D., FACRO ? cc: Lawrence Rai MD [address] [place] [address] ? Katherine Downs MD [facility] [address] [place] [address] ? Dr. Berman ? This note was dictated with Dragon Naturally Speaking and may contain some grammatical errors due to limitations of the software. Dexter De León RN, was present in the examination room throughout the encounter. 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 Author Type: Physician Type: Progress Notes Filed: 06/11/2018 2:48 PM Note Text: Radiation Oncology - Follow Up Note PATIENT NAME: Joss Washington PATIENT DIAGNOSIS: ?DCIS of the Right breast, UIQ, pathologic stage 0 (Tis Nx ?M0), ER-positive, IA-positive, s/p partial mastectomy ? ? INTERVAL HISTORY: [...] M.D., FACRO ? cc: Lawrence Rai MD [address] [place] [address] ? Katherine Downs MD [facility] [address] [place] [address] ? Dr. Berman ? This note was dictated with Dragon Naturally Speaking and may contain some grammatical errors due to limitations of the software. Dexter De León RN, was present in the examination room throughout the encounter. Normal [facility] CNOVon 02-12-2018 CNOV Office Visit (RADTSA ) JOSS WASHINGTON ([id number]) 1950 F Date Time Provider Department 02/12/18 [...] pathologic stage 0 (Tis Nx ?M0), ER-positive, IA-positive, s/p partial mastectomy ? ? INTERVAL HISTORY: [...] examination. ? Signed by: Farheen Cronin M.D., [facility] ? cc: Lawrence Rai MD [address] [place] [address] ? Katherine Downs MD [facility] [address] [place] [address] ? Dr. Berman ? This note was dictated with Jazmin Naturally Speaking and may contain some grammatical errors due to limitations of the software. Dexter De León RN, was present in the examination room throughout the encounter. Referring Provider: LAWRENCE RAI [[id number]] Allergies As of Date: 02/12/2018 (No Known [...] by FARHEEN CRONIN MD on 02/12/18 Normal [facility] PROGRESSon 02-12-2018 Protein mass conc HNO ID: [id number] Author: Farheen Cronin Service: (none) Author Type: Physician Type: Progress Notes Filed: 02/12/2018 10:40 AM Note Text: Radiation Oncology - Follow Up Note PATIENT NAME: Joss Washington PATIENT DIAGNOSIS: ?DCIS of the Right breast, UIQ, pathologic stage 0 (Tis Nx ?M0), ER-positive, IA-positive, s/p partial mastectomy ? ? INTERVAL HISTORY: [...] M.D., FACRO ? cc: Lawrence Rai MD [address] [place] [address] ? Katherine Downs MD [facility] [address] [place] [address] ? Dr. Berman ? This note was dictated with Dragon Naturally Speaking and may contain some grammatical errors due to limitations of the software. Dexter De León RN, was present in the examination room throughout the encounter. Normal [facility] PROGRESSon 12-10-2017 Protein mass conc HNO ID: [id number] Author: Lisa (Mattie) Екатерина Service: (none) Author [...] Dr. Downs at this time. Lisa Willams APRN.FLAME GOUGER Normal [facility] CNOVon 12-04-2017 CNOV Office Visit (RADTSA ) JOSS WASHINGTON ([id number]) 1950 F Date Time Provider Department 12/04/17 [...] pathologic stage 0 (Tis Nx ?M0), ER-positive, IA-positive, s/p partial mastectomy ? ? INTERVAL HISTORY: [...] M.D., FACRO ? cc: Lawrence Rai MD [facility] [place] [address] ? Katherine Downs MD [facility] [address] [place] [address] ? Dr. Berman ? This note was dictated with Radhaon Naturally Speaking and may contain some grammatical errors due to limitations of the software. Anatoliy Ha MA was present in the examination room throughout the encounter. Referring Provider: FARHEEN CRONIN [[id number]] Allergies As of Date: 12/04/2017 (No Known [...] Status:Closed by FARHEEN CRONIN MD on 12/04/17 [facility] CNOVSPon 12-04-2017 CNOVSP Visit (SP) Office (HEMASA) JOSS WASHINGTON ([id number]) 1950 F Date Time Provider Department 12/04/17 11:00 AM LISA WILLAMS (FLAME GOUGER) CHRISS During your visit today, we recorded [...] Dr. Downs at this time. Lisa Willams APRN.FLAME GOUGER Referring Provider: FARHEEN CRONIN [[id number]] Allergies As of Date: 12/04/2017 (No Known [...] by LISA WILLAMS CNP on 12/10/17 Normal [facility] PROGRESSon 12-04-2017 Protein mass conc HNO ID: [id number] Author: Farheen Cronin Service: (none) Author Type: Physician Type: Progress Notes Filed: 12/04/2017 1:55 PM Note Text: Radiation Oncology - Follow Up Note PATIENT NAME: Joss Washington PATIENT DIAGNOSIS: DCIS of the Right breast, UIQ, pathologic stage 0 (Tis Nx ?M0), ER-positive, IA-positive, s/p partial mastectomy ? ? INTERVAL HISTORY: [...] M.D., KAY ? cc: Lawrence Rai MD [facility] [place] [address] ? Katherine Downs MD [facility] [address] [place] [address] ? Dr. Berman ? This note was dictated with Dragon Naturally Speaking and may contain some grammatical errors due to limitations of the software. Anatoliy Ha MA was present in the examination room throughout the encounter. Normal [facility] CNOVon 10-30-2017 CNOV Office Visit (RADTSA ) JOSS WASHINGTON ([id number]) 1950 F Date Time Provider Department 10/30/17 [...] pathologic stage 0 (Tis Nx M0), ER-positive, IA-positive, s/p partial mastectomy ? INTERVAL HISTORY: Mrs. [...] follow-up examination. Signed by: Farheen Cronin M.D., [facility] cc: Lawrence Rai MD [address] [place] [id number] ? Katherine Downs MD [facility] [address] [place] [address] ? Dr. Berman ? This note was dictated with Radhaon Naturally Speaking and may contain some grammatical errors due to limitations of the software. Dexter De León RN was present in the examination room throughout the encounter. Referring Provider: FARHEEN CRONIN [[id number]] Allergies As of Date: 10/30/2017 (No Known [...] by FARHEEN CRONIN MD on 10/30/17 Normal [facility] PROGRESSon 10-30-2017 Protein mass conc HNO ID: [id number] Author: Farheen Cronin Service: (none) Author Type: Physician Type: Progress Notes Filed: 10/30/2017 3:16 PM Note Text: Radiation Oncology - Follow Up Note PATIENT NAME: Joss Washington PATIENT DIAGNOSIS: DCIS of the Right breast, UIQ, pathologic stage 0 (Tis Nx M0), ER-positive, IA-positive, s/p partial mastectomy ? INTERVAL HISTORY: Mrs. [...] Cronin M.D., FACRO cc: Lawrence Rai MD [facility] [place] [address] ? Katherine Downs MD [facility] [address] [place] [address] ? Dr. Berman ? This note was dictated with Dragon Naturally Speaking and may contain some grammatical errors due to limitations of the software. Dexter De León RN was present in the examination room throughout the encounter. Normal [facility] PROGRESSon 10-16-2017 Protein mass conc HNO ID: [id number] Author: Farheen Cronin Service: (none) Author Type: Physician Type: Progress Notes Filed: 10/17/2017 12:34 AM Note Text: [facility] Radiation Oncology Department RADIATION ONCOLOGY - COMPLETION NOTE PATIENT: JOSS WASHINGTON : 1950 DATES OF TREATMENT: 08/27/2017 to 10/15/2017 DIAGNOSIS: DCIS of the Right breast, UIQ, pathologic stage 0 (Tis Nx M0), ER-positive, IA-positive, s/p partial mastectomy AREA TREATED: Right Breast [...] JULIETTE 10/16/20179:57 AM cc: Dr. Lawrence Downs [facility] CNOVon 10-14-2017 CNOV Office Visit (RADTSA ) JOSS WASHINGTON ([id number]) 1950 F Date Time Provider Department 10/14/17 [...] the Right?breast, UIQ,?pathologic?stage 0 (Tis Nx M0),?ER-positive, IA-positive, s/p?partial mastectomy ? COURSE: definitive AREA TREATED: [...] by FARHEEN CRONIN MD on 10/14/17 Normal [facility] PROGRESSon 10-14-2017 Protein mass conc HNO ID: [id number] Author: Farheen Cronin Service: (none) Author Type: Physician Type: Progress Notes Filed: 10/14/2017 2:16 PM Note Text: Radiation Oncology - On Treatment Review (OTR) Note PATIENT NAME: Joss Washington PATIENT DIAGNOSIS: DCIS?of the Right?breast, UIQ,?pathologic?stage 0 (Tis Nx M0),?ER-positive, IA-positive, s/p?partial mastectomy ? COURSE: definitive AREA TREATED: [...] as planned. ? Farheen Cronin MD? Normal [facility] CNOVon 10-07-2017 CNOV Office Visit (RADTSA ) JOSS WASHINGTON ([id number]) 1950 F Date Time Provider Department 10/07/17 [...] the Right?breast, UIQ,?pathologic?stage 0 (Tis Nx M0),?ER-positive, IA-positive, s/p?partial mastectomy ? COURSE: definitive AREA TREATED: [...] by FARHEEN CRONIN MD on 10/07/17 [facility] [facility]2017 Protein mass conc HNO ID: [id number] Author: Farheen Cronin Service: (none) Author Type: Physician Type: Progress Notes Filed: 10/07/2017 11:21 AM Note Text: Radiation Oncology - On Treatment Review (OTR) Note PATIENT NAME: Joss Washington PATIENT DIAGNOSIS: DCIS?of the Right?breast, UIQ,?pathologic?stage 0 (Tis Nx M0),?ER-positive, IA-positive, s/p?partial mastectomy ? COURSE: definitive AREA TREATED: [...] as planned. ? Farheen Cronin MD? Normal [facility] CNOVon 09-30-2017 CNOV Office Visit (RADTSA ) JOSS WASHINGTON ([id number]) 1950 F Date Time Provider Department 09/30/17 [...] the Right?breast, UIQ,?pathologic?stage 0 (Tis Nx M0),?ER-positive, IA-positive, s/p?partial mastectomy ? COURSE: definitive AREA TREATED: [...] right breast*INVALID FOR* Visit Notes: >> Anatoliy (Director Radio News) CLARA Ha loni Sep 30, 2017 10:21 AM Status: Signed Status: Post-menopausal. Encounter Status:Closed by FARHEEN CRONIN MD on 09/30/17 [facility] PROGRESSon 09-30-2017 Protein mass conc HNO ID: [id number] Author: Farheen Cronin Service: (none) Author Type: Physician Type: Progress Notes Filed: 09/30/2017 11:48 AM Note Text: Radiation Oncology - On Treatment Review (OTR) Note PATIENT NAME: Joss Washington PATIENT DIAGNOSIS: DCIS?of the Right?breast, UIQ,?pathologic?stage 0 (Tis Nx M0),?ER-positive, IA-positive, s/p?partial mastectomy ? COURSE: definitive AREA TREATED: [...] as planned. ? Farheen Cronin MD? Normal [facility] CNOVon 09-22-2017 CNOV Office Visit (RADTSA ) JOSS WASHINGTON ([id number]) 1950 F Date Time Provider Department 09/22/17 [...] the Right?breast, UIQ,?pathologic?stage 0 (Tis Nx M0),?ER-positive, IA-positive, s/p?partial mastectomy ? COURSE: definitive AREA TREATED: [...] by FARHEEN CRONIN MD on 09/22/17 Normal [facility] PROGRESSon 09-22-2017 Protein mass conc HNO ID: [id number] Author: Farheen Cronin Service: (none) Author Type: Physician Type: Progress Notes Filed: 09/22/2017 2:38 PM Note Text: Radiation Oncology - On Treatment Review (OTR) Note PATIENT NAME: Joss Washington PATIENT DIAGNOSIS: DCIS?of the Right?breast, UIQ,?pathologic?stage 0 (Tis Nx M0),?ER-positive, IA-positive, s/p?partial mastectomy ? COURSE: definitive AREA TREATED: [...] treatment as planned. ? Farheen Cronin MD [facility] CBC and Differentialon 09-18 Abs Baso 0.03 k/uL Normal 0.00-0.10 [facility] Abs Sac 0.45 k/uL Normal 0.00-0.86 [facility] Abs Neut 5.16 k/uL Normal 1.45-7.50 [facility] Basophils/100 WBC (Bld) 0.4 % Normal [facility] Eosinophils #/vol (Bld) 0.23 10*3/uL Normal 0.00-0.45 [facility] Eosinophils/100 WBC (Bld) 3.2 % Normal [facility] Erythrocyte distribution width Ratio (RBC) 15.0 % Normal 11.5-15.0 [facility] Hematocrit Volume Fraction (Bld) 39.1 % Normal 36.0-46.0 [facility] Hemoglobin mass conc (Bld) 13.0 g/dL Normal 11.5-15.5 [facility] Lymphocytes #/vol (Bld) 1.40 10*3/uL Normal 1.00-4.00 [facility] Lymphocytes/100 WBC (Bld) 19.3 % Normal [facility] MCH Entitic mass (RBC) 30.6 pG Normal 26.0-34.0 [facility] MCHC mass conc (RBC) 33.2 g/dL Normal 30.5-36.0 [facility] MCV Entitic volume (RBC) 92.0 fL Normal 80.0-100.0 [facility] Monocytes/100 WBC (Bld) 6.2 % Normal [facility] Neutrophils/100 WBC (Bld) 70.9 % Normal [facility] Platelet mean volume Entitic volume (Bld) 9.5 fL Normal 9.0-12.7 [facility] Platelets #/vol (Bld) 272 10*3/uL Normal 150-400 [facility] RBC #/vol (Bld) 4.25 10*6/uL Normal 3.90-5.20 [facility] WBC #/vol (Bld) 7.27 10*3/uL Normal 3.70-11.00 [facility] CNOVon 09-18-2017 CNOV Office Visit (RADTSA ) FELIXJOSS ([id number]) 1950 F Date Time Provider Department 09/18/17 [...] De León RN Referring Provider: FARHEEN CRONIN [[id number]] Allergies As of Date: 09/18/2017 (No Known [...] Visit Notes: >> Dexter De León RN [facility] Sep 18, 2017 10:01 AM Status: [...] by DEXTER DE LEÓN on 09/18/17 Normal [facility] CNOVon 09-16-2017 CNOV Office Visit (RADTSA ) JOSS WASHINGTON ([id number]) 1950 F Date Time Provider Department 09/16/17 [...] the Right?breast, UIQ,?pathologic?stage 0 (Tis Nx M0),?ER-positive, IA-positive, s/p?partial mastectomy ? 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 COURSE: definitive AREA TREATED: [...] treatment as planned. ? 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 COURSE: definitive AREA TREATED: [...] requiring intervention. Signed by: Jem Santana MD [facility] CNOVbere 09-08-2017 CNOV Office Visit (RADTSA ) JOSS WASHINGTON ([id number]) 1950 F Date Time Provider Department 09/08/17 10:15 AM JEM SANTANA During your visit today, we recorded the following information about you: Blood pressure Weight 130/82 130.6 kg Anatoliy Graves, CORPORATE TRAVEL MANAGER, RN 09/08/2017 12:04 PM Signed Status: Post-menopausal. 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 COURSE: definitive AREA TREATED: [...] by JEM SANTANA MD on 09/18/17 Normal [facility] CBC and Differentialon 09-04 Abs Baso 0.03 k/uL Normal <0.11 [facility] Comment on above: Performed By: #### C BCDIF ####[facility] [place] [phone] Abs Sac 0.45 k/uL Normal <0.87 [facility] Comment on above: Performed By: #### C BCDIF ####[place] [address] [address] [place] [phone] Abs Neut 3.74 k/uL Normal 1.45-7.50 [facility] Comment on above: Performed By: #### C BCDIF ####[facility] [place] [phone] Basophils/100 WBC (Bld) 0.5 % Normal [facility] Comment on above: Performed By: #### C BCDIF ####[place] [address] [place] [phone] Comment AGC=3.68 Normal [facility] Comment on above: Result Comment: Prel iminary result. Interpret with caution. Final results may vary. Results requested and read back by: /09/04/1710/15/1026/OSITO CASTELLON Performed By: #### C BCDIF ####[place] [address] [address] [phone] Eosinophils #/vol (Bld) 0.23 10*3/uL Normal <0.46 [facility] Comment on above: Performed By: #### C BCDIF ####[facility] [address], [place] [phone] Eosinophils/100 WBC (Bld) 3.7 % Normal [facility] Comment on above: Performed By: #### C BCDIF ####[place] [address] [address] [place] [phone] Erythrocyte distribution width Ratio (RBC) 15.5 % High 11.5-15.0 [facility] Comment on above: Performed By: #### C BCDIF ####[place] [address] [address] [phone] Hematocrit Volume Fraction (Bld) 37.1 % Normal 36.0-46.0 [facility] Comment on above: Performed By: #### C BCDIF ####[place] [phone] Hemoglobin mass conc (Bld) 12.2 g/dL Normal 11.5-15.5 [facility] Comment on above: Performed By: #### C BCDIF ####[place] [phone] Lymphocytes #/vol (Bld) 1.78 10*3/uL Normal 1.00-4.00 [facility] Comment on above: Performed By: #### C BCDIF ####[place] [address] [address] [phone] Lymphocytes/100 WBC (Bld) 28.6 % Normal [facility] Comment on above: Performed By: #### C BCDIF ####[place] [address] [address] [phone] MCH Entitic mass (RBC) 30.3 pG Normal 26.0-34.0 [facility] Comment on above: Performed By: #### C BCDIF ####[place] [address] [address] [phone] MCHC mass conc (RBC) 32.9 g/dL Normal 30.5-36.0 [facility] Comment on above: Performed By: #### C BCDIF ####[place] [address] [address], [place] [phone] MCV Entitic volume (RBC) 92.1 fL Normal 80.0-100.0 [facility] Comment on above: Performed By: #### C BCDIF ####[place] [address] [address], [place] [phone] Monocytes/100 WBC (Bld) 7.2 % Normal [facility] Comment on above: Performed By: #### C BCDIF ####[address] [place], [place] [phone] Neutrophils/100 WBC (Bld) 60.0 % Normal [facility] Comment on above: Performed By: #### C BCDIF ####[address] [phone] Platelet mean volume Entitic volume (Bld) 9.3 fL Normal 9.0-12.7 [facility] Comment on above: Performed By: #### C BCDIF ####[place] [address] [address], [place] [phone] Platelets #/vol (Bld) 285 10*3/uL Normal 150-400 [facility] Comment on above: Performed By: #### C BCDIF ####[place] [address] [address], [place] [phone] RBC #/vol (Bld) 4.03 10*6/uL Normal 3.90-5.20 [facility] Comment on above: Performed By: #### C BCDIF ####[place] [address] [address], [place] [phone] WBC #/vol (Bld) 6.19 10*3/uL Normal 3.70-11.00 [facility] Comment on above: Performed By: #### C BCDIF ####[facility] [address] [place], [place] [phone] CNOVon 09-04-2017 CNOV Office Visit (RADTSA ) JOSS WASHINGTON ([id number]) 1950 F Date Time Provider Department 09/04/17 [...] De León RN Referring Provider: FARHEEN CRONIN [[id number]] Allergies As of Date: 09/04/2017 (No Known [...] by DEXTER DE LEÓN on 09/04/17 Normal [facility] CNOVon 09-02-2017 CNOV Office Visit (RADTSA ) JOSS WASHINGTON ([id number]) 1950 F Date Time Provider Department 09/02/17 10:15 AM FARHEEN CRONIN During your visit today, we recorded the following information about you: Blood pressure Weight 140/82 131.1 kg Anatoliy Ha LPN, CLARA 09/02/2017 10:14 AM Signed Status: Post-menopausal. Farheen Cronin MD 09/02/2017 1:31 PM Signed Radiation Oncology - On Treatment Review (OTR) Note PATIENT NAME: oJss Washington PATIENT DIAGNOSIS: DCIS of the Right breast, UIQ, pathologic stage 0 (Tis Nx M0), ER-positive, IA-positive, s/p partial mastectomy COURSE: definitive AREA TREATED: [...] by FARHEEN CRONIN MD on 09/02/17 Normal [facility] PROGRESSon 09-02-2017 Protein mass conc HNO ID: [id number] Author: Farheen Cronin Service: (none) Author Type: Physician Type: Progress Notes Filed: 09/02/2017 1:31 PM Note Text: Radiation Oncology - On Treatment Review (OTR) Note PATIENT NAME: Joss Washington PATIENT DIAGNOSIS: DCIS of the Right breast, UIQ, pathologic stage 0 (Tis Nx M0), ER-positive, IA-positive, s/p partial mastectomy COURSE: definitive AREA TREATED: [...] radiation treatment as planned. Farheen Cronin MD [facility] CNOVon 08-27-2017 CNOV Office Visit (RADTSA ) JOSS WASHINGTON ([id number]) 1950 F Date Time Provider Department 08/27/17 1:30 PM JEM SANTANA During your visit today, we recorded the following information about you: Dexter De León RN, RN 08/27/2017 2:20 PM Signed Status: Post-menopausal. 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 Plan and MU calculations [...] of treatment. Signed by: Jem Santana MD [facility] CT NON-RADIOLOGY -NBNRo n 08-20-2017 [facility] CT NON-RADIOLOGY -NBNR [facility] - CT Images - Obtained Outside of Imaging [employer] [id number] [facility] CNCNPATEDon 08-20-2017 CNCNPATED Education (RADTSA) JOSS WASHINGTON ([id number]) 1950 F Date Time Provider Department 08/20/17 ANATOLIY HA LPN Reason for Visit: Patient Education [91] Visit Notes: >> Anatoliy Ha RN FriAugust 20, 2017 3:46 PM Status: Signed Radiation Therapy - Patient Education Note PATIENT NAME: Joss Washington PATIENT August 20, 2017 [facility] FACILITY/LOCATION: [facility] READINESS TO LEARN Cognitive Ability: Alert and [...] need for social work, 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 Was approved? No Signed by: Anatoliy Ha [...] Encounter Status:Closed by ANATOLIY HA on 08/20/17 [facility] CNOVon 08-20-2017 CNOV Office Visit (RADTSA ) JOSS WASHINGTON ([id number]) 1950 F Date Time Provider Department 08/20/17 [...] pathologic stage 0 (Tis Nx M0), ER-positive, IA-positive, s/p partial mastectomy. HPI: 67 year old [...] with her . 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 COMPLETE REVIEW [...] Farheen Cronin MD cc: Lawrence Rai MD [address] [place] [phone] Katherine Downs MD [facility] [address] [place] [address] Dr. Berman This note was dictated with Jazmin Naturally Speaking and may contain some grammatical errors due to limitations of the software. Referring Provider: KATHERINE DOWNS [[id number]] Allergies As of Date: 08/20/2017 (No Known [...] by FARHEEN CRONIN MD on 08/20/17 Normal [facility] PROGRESSon 08-20-2017 Protein mass conc HNO ID: [id number] Author: Farheen Cronin Service: (none) Author Type: Physician Type: Progress Notes Filed: 08/20/2017 3:39 PM Note Text: Radiation Oncology - New Patient/Consult Note PATIENT NAME: Joss Washington PATIENT REQUESTING PROVIDER: Dr. Katherine Downs DIAGNOSIS: 67 year old female with DCIS of the Right breast, UIQ, pathologic stage 0 (Tis Nx M0), ER-positive, IA-positive, s/p partial mastectomy. HPI: 67 year old [...] with her . 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 COMPLETE REVIEW [...] Farheen Cronin MD cc: Lawrence Rai MD [address] [place] [id number] Katherine Downs MD [facility] [address] [place] [address] Dr. Berman This note was dictated with Dragon Naturally Speaking and may contain some grammatical errors due to limitations of the software. 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 / NRS 08/20/20173:59 PM Normal [facility] Protein mass conc HNO ID: [id number] Author: Farheen Cronin Service: (none) Author Type: Physician Type: Progress Notes Filed: 08/27/2017 12:34 AM Note Text: JOSS WASHINGTON [id number] 08/20/2017 [facility] Department of Radiation Oncology Treatment Planning Note [...] Signed Farheen Cronin M.D. 08/26/20171:02 PM Normal [facility] CNOVSPon 08-14-2017 CNOVSP Visit (SP) Office (HEMAC[facility]) JOSS WASHINGTON ([id number]) 1950 F Date Time Provider Department 08/14/17 [...] Katherine Downs MD Referring Provider: GEREMIAS BERMAN [[id number]] Allergies As of Date: 08/14/2017 (No Known Allergies) Date Reviewed: 08/14/2017 Reviewed by: Iesha Luis - Fully Assessed Primary Visit Diagnosis:Ductal carcinoma in situ (DCIS) of right breast [D05.11] Order(s):RAD/ONC CONSULT [9037] Order #: [id number]: 1 Prescriptions as of 08/14/2017 Sig: VENTOLIN [...] by KATHERINE DOWNS MD on 08/14/17 Normal [facility] PROGRESSon 08-14-2017 Protein mass conc HNO ID: [id number] Author: Katherine Downs Service: (none) Author Type: [...] needed. - RAD/ONC CONSULT Katherine Downs MD [facility] US-US GUIDE LOCAL BREAST RT IMPORTon 07-04-2017 US-US GUIDE LOCAL BREAST RT IMPORT Images were obtained outside of [facility] [id number] [facility] MAMM OUTSIDE DICOM IMPORT -N BNRon 06-18-2017 MAMM OUTSIDE DICOM IMPORT -NBNR Images were obtained outside of [facility] [id number] [facility] Encounters Encounter Date Encounter Type Care Provider Facility Start: 03-16-2022 End: 03-17-[address] LAWRENCE RAI Facility:[facility] Start: 02-28-[address] LAWRENCE RAI Facility :[facility] Start: 02-08-2022 End: 02-09-[address] LAWRENCE RAI Facility:[facility] Start: 11-30-2021 End: 12-01-[address] LAWRENCE RAI Facility:[facility] Start: 06-11-2018 End: 06-15-2018 Patient encounter procedure FARHEEN CRONIN [facility] Start: 02-12-2018 End: 02-13-2018 Patient encounter procedure FARHEEN CRONIN [facility] Start: 12-04-2017 End: 12-11-2017 Patient encounter procedure LISA (FLAME GOUGER) ЕКАТЕРИНА [facility] Start: 10-30-2017 End: 10-30-2017 Patient encounter procedure FARHEEN CRONIN [facility] Start: 10-15-2017 End: 10-20-2017 Patient encounter procedure KATHERINE DOWNS [facility] Start: 10-14-2017 End: 10-14-2017 Patient encounter procedure FARHEEN CRONIN [facility] Start: 10-13-2017 End: 10-15-2017 Patient encounter procedure KATHERINE DOWNS [facility] Start: 10-09-2017 End: 10-30-2017 Patient encounter procedure KATHERINE DOWNS [facility] Start: 10-08-2017 End: 10-10-2017 Patient encounter procedure KATHERINE DOWNS [facility] Start: 10-07-2017 End: 10-07-2017 Patient encounter procedure FARHEEN CRONIN [facility] Start: 10-06-2017 End: 10-10-2017 Patient encounter procedure KATHERINE DOWNS [facility] Start: 10-03-2017 End: 10-08-2017 Patient encounter procedure KATHERINE DOWNS [facility] Start: 10-02-2017 End: 10-20-2017 Patient encounter procedure KATHERINE DOWNS [facility] Start: 09-30-2017 End: 09-30-2017 Patient encounter procedure FARHEEN CRONIN [facility] Start: 09-29-2017 End: 10-06-2017 Patient encounter procedure KATHERINE DOWNS [facility] Start: 09-26-2017 End: 10-02-2017 Patient encounter procedure KATHERINE DOWNS [facility] Start: 09-25-2017 End: 09-29-2017 Patient encounter procedure KATHERINE DOWNS [facility] Start: 09-24-2017 End: 10-06-2017 Patient encounter procedure KATHERINE DOWNS [facility] Start: 09-23-2017 End: 09-29-2017 Patient encounter procedure KATHERINE DOWNS [facility] Start: 09-22-2017 End: 09-22-2017 Patient encounter procedure FARHEEN CRONIN [facility] Start: 09-19-2017 End: 09-22-2017 Patient encounter procedure KATHERINE DOWNS [facility] Start: 09-18-2017 End: 09-18-2017 Patient encounter procedure FARHEEN CRONIN [facility] Start: 09-17-2017 End: 09-30-2017 Patient encounter procedure KATHERINE DOWNS [facility] Start: 09-16-2017 End: 09-16-2017 Patient encounter procedure FARHEEN CRONIN [facility] Start: 09-15-2017 End: 09-17-2017 Patient encounter procedure KATHERINE DOWNS [facility] Start: 09-12-2017 End: 09-17-2017 Patient encounter procedure KATHERINE DOWNS [facility] Start: 09-11-2017 End: 09-15-2017 Patient encounter procedure KATHERINE DOWNS [facility] Start: 09-10-2017 End: 09-22-2017 Patient encounter procedure KATHERINE DOWNS [facility] Start: 09-09-2017 End: 09-15-2017 Patient encounter procedure KATHERINE DOWNS [facility] Start: 09-08-2017 End: 09-08-2017 Patient encounter procedure JEM SANTANA [facility] Start: 09-05-2017 End: 09-15-2017 Patient encounter procedure KATHERINE DOWNS [facility] Start: 09-04-2017 End: 09-04-2017 Patient encounter procedure ZULEMAAdrián Celeste CRONIN [facility] Start: 09-03-2017 End: 09-15-2017 Patient encounter procedure KATHERINE DOWNS [facility] Start: 09-02-2017 End: 09-02-2017 Patient encounter procedure FARHEEN CRONIN [facility] Start: 09-01-2017 End: 09-04-2017 Patient encounter procedure KATHERINE DOWNS [facility] Start: 08-29-2017 End: 09-01-2017 Patient encounter procedure KATHERINE DOWNS [facility] Start: 08-28-2017 End: 09-01-2017 Patient encounter procedure KATHERINE DOWNS [facility] Start: 08-27-2017 End: 08-27-2017 Patient encounter procedure JEM SANTANA [facility] Start: 08-20-2017 End: 08-21-2017 Patient encounter procedure ZULEMAAdrián Celeste BARBOSAI [facility] Start: 08-14-2017 End: 08-15-2017 Patient encounter procedure [facility] Payers Date Payer Category Payer Medicare [id number] 1958 Self-pay [id number] 1958 Unknown [id number] 1950 Unknown [id number] 2.16.84 [id number] 1950 Unknown [id number] 2.16.84 [id number] 1950 Unknown [id number] 2.16.84 [id number] 1950 Unknown [id number] 2.16.84 [id number] Summary Purpose Family History No Family History Records FoundNo Family History Records FoundNo Family History Records Found Advance Directives No Advanced Directives Records FoundNo Advanced Directives Records FoundNo Advanced Directives Records Found Additional Source Comments INFORMATION SOURCE (unrecogn ized section and content) DATE CREATED AUTHOR 06/15/2018 [facility] DATE CREATED AUTHOR AUTHOR'S ORGANIZ ATION 07/26/2019 [facility] DATE CREATED AUTHOR AUTHOR'S ORGANIZ ATION 03/22/2022 [...] BE BASED ON THE PRIMARY CLINICAL RECORDS. [employer] provides no warranty or guarantee of the accuracy or completeness of information in this document.
[2024-01-05 07:58] LABS: Basophils Percent Auto 0.6 % (0.2-2.0); Eosinophils Absolute Auto 0.2 10^3/uL (0.0-0.7); Eosinophils Percent Auto 3.4 % (0.9-7.0); Hematocrit 38.7 % (36.0-48.0); Hemoglobin 12.4 g/dL (12.0-16.0); Immature Granulocytes Abs Auto 0.07 10^3/uL (0.00-0.03); Immature Granulocytes Pct Auto 1.1 % (0.0-0.5); Lymphocytes Absolute Auto 1.5 10^3/uL (1.2-3.8); Lymphocytes Percent Auto 22.7 % (20.5-60.0); Mean Corpuscular Volume 93.7 fL (81.0-99.0); Mean Platelet Volume 9.1 fL (9.5-13.5); Monocytes Absolute Auto 0.5 10^3/uL (0.3-0.8); Monocytes Percent Auto 6.9 % (1.7-12.0); Neutrophils Absolute Auto 4.3 10^3/uL (1.4-6.5); Neutrophils Percent Auto 65.3 % (43.0-75.0); Platelet Count 278 10^3/uL (150-450); Red Blood Count 4.13 10^6/uL (4.20-5.40); Red Cell Distribution Width 14.4 % (11.0-15.0); White Blood Count 6.5 10^3/uL (4.0-11.0)
[2024-01-05 08:55] LABS: Estimated Average Glucose 126 mg/dL
[2024-01-05 09:17] LABS: Alanine Aminotransferase 18 U/L (14-59); Albumin Globulin Ratio 0.7; Alkaline Phosphatase 131 U/L (46-116); Anion Gap 12.1; Aspartate Amino Transferase 18 U/L (15-37); BUN Creatinine Ratio 17.3; Bilirubin Total 0.4 mg/dL (0.2-1.0); Calcium 9.2 mg/dL (8.5-10.1); Carbon Dioxide 28.1 mmol/L (21.0-32.0); Chloride 104 mmol/L (98-107); Chol HDL Ratio 3.4; Cholesterol 253 mg/dL (<=200); Estimated GFR (African America >60 (>=60 mL/min/1.73m^2); Estimated GFR (Non-African Ame 52 (>=60 mL/min/1.73m^2); Free T3 2.01 pg/mL (2.18-3.98); Globulin 4.1 g/dL; Glucose 110 mg/dL (74-106); HDL Cholesterol 75 mg/dL (40-60); Potassium 4.2 mmol/L (3.5-5.1); Sodium 140 mmol/L (136-145); Thyroid Stimulating Hormone 3.668 uIU/mL (0.358-3.740); Total Protein 7.1 g/dL (6.4-8.2); Triglycerides 133 mg/dL (<=150); VLDL CHOLESTEROL 26.6 mg/dL
== END 2024-01-05 07:20 | disposition home or self-care (01) ==
LOC: LAB 07:22
PROVIDERS: PCP Family Medicine; Visit Provider Family Medicine
DX: Z00.00 Encounter for general adult medical examination without abnormal findings (principal); I10 Essential (primary) hypertension; E55.9 Vitamin D deficiency, unspecified; E78.5 Hyperlipidemia, unspecified; R53.83 Other fatigue; E03.9 Hypothyroidism, unspecified; Z12.12 Encounter for screening for malignant neoplasm of rectum; R73.09 Other abnormal glucose
CPT/HCPCS: 36415; 80053; 80061; 82306; 83036; 84436; 84443; 84481; 85025

== ENCOUNTER 2024-01-20 10:00 | Outpatient (REF) | payer MEDICARE, OTHER, SELFPAY ==
--- OUTSIDE RECORDS SUMMARY | 2024-01-21 16:07 | XMS_ITS | CCD ---
Author Organization [facility] Care Team Providers Care Flatwork Supervisor Name Role Phone KATHERINE DOWNS Attending Unavailable [...] Attending Unavailable CRONIN, KHALID R Attending Unavailable CROINN, KHALID R Attending Unavailable CRONIN, KHALID R Attending Unavailable CRONIN, KHALID R Attending Unavailable CRONIN, KHALID R Attending Unavailable CRONIN, KHALID R Referring Unavailable CRONIN, KHALID R Attending Unavailable CRONIN, KHALID R Referring Unavailable LISA WILLAMS ([facility]) Attending Unavailabl e CRONIN, KHALID R [...] LIBIA GIBBS Date: 2022-03-17 13:31 Normal [facility] MG MAMM ABHAY DIAG W CADon MG MAMM ABHAY DIAG W CAD Patient: JOSS WASHINGTON Exam Date: 02/08/2022 : 1950 Gender:F Ordering : DR LAWRENCE RAI . Admission #: [id number] Family : Order #: [id number] CLICK HERE TO VIEW EXAM RADIOLOGY REPORT [...] brain cancer at age 69. LOCATION: [facility] BREAST COMPOSITION: Scattered areas fibroglandular density. FINDINGS: [...] Lima M.D. on 02/08/2022 at 08:46 Normal T4, T3U, FTI LABCORPon 12-01 Free Thyroxine Index 1.7 Normal 1.2-4.9 Comment on above: Performed By: #### T HYLC #### [facility] [address] [place] [address] Dr. Sheldon Cordero T3 Uptake 27 % Normal 24-39 [facility] Comment on above: Performed By: #### T HYLC #### [facility] [address] [place] [address] Dr. Sheldon Cordero T4 [Mass/Vol] 6.4 ug/dL Normal 4.5-12.0 [facility] Comment on above: Performed By: #### T HYLC #### [facility] [address] [place] [address] Dr. Sheldon Cordero CBC AUTO DIFFon 11-30-2021 BASO # 0.1 103/ul Normal 0.0-0.1 Comment on above: Performed By: #### C BC #### [facility] [address] [place] [address] Dr. Sheldon Cordero Basophils/100 WBC (Bld) 0.8 % Normal 0.2-2.0 Comment on above: Performed By: #### C BC #### [facility] [address] [place] [address] Dr. Sheldon Cordero EO # 0.3 103/ul Normal 0.0-0.7 Comment on above: Performed By: #### C BC #### [facility] [address] [place] [address] Dr. Sheldon Cordero Eosinophils/100 WBC (Bld) 3.8 % Normal 0.9-7.0 Comment on above: Performed By: #### C BC #### [facility] [address] [place] [address] Dr. Sheldon Cordero Erythrocyte distribution width (RBC) [Ratio] 14.6 % Normal 11.0-15.0 Comment on above: Performed By: #### C BC #### [facility] [address] [place] [address] Dr. Sheldon Cordero Hematocrit (Bld) [Volume fraction] 39.3 % Normal 36.0-48.0 Comment on above: Performed By: #### C BC #### [facility] [address] [place] [address] Dr. Sheldon Cordero Hemoglobin (Bld) [Mass/Vol] 12.4 g/dL Normal 12.0-16.0 Comment on above: Performed By: #### C BC #### [facility] [address] [place] [address] Dr. Sheldon Cordero IG # 0.08 10e3/ul Critically high 0.00-0.03 [facility] Comment on above: Performed By: #### C BC #### [facility] [address] [place] [address] Dr. Sheldon Cordero IG % 1.1 % Critically high 0.0-0.5 [facility] Comment on above: Performed By: #### C BC #### [facility] [address] [place] [address] Dr. Sheldon Cordero LYMPH # 1.8 103/ul Normal 1.2-3.8 Comment on above: Performed By: #### C BC #### [facility] [address] [place] [address] Dr. Sheldon Cordero Lymphocytes/100 WBC (Bld) 25.1 % Normal 20.5-60.0 Comment on above: Performed By: #### C BC #### [facility] [address] [place] [address] Dr. Sheldon Cordero MANUAL DIFF REQ NO Normal [facility] Comment on above: Performed By: #### C BC #### [facility] [address] [place] [address] Dr. Sheldon Cordero MCH (RBC) [Entitic mass] 29.6 pg Normal 26.7-34.0 Comment on above: Performed By: #### C BC #### [facility] [address] [address] [address] Sheldon Cordero MCHC (RBC) [Mass/Vol] 31.6 g/dL Normal 29.9-35.2 Comment on above: Performed By: #### C BC #### [facility] [address] [address] [address] Sheldon Cordero MCV (RBC) [Entitic vol] 93.8 fL Normal 81.0-99.0 Comment on above: Performed By: #### C BC #### [facility] [address] [address] [address] Sheldon Cordero MONO # 0.4 103/ul Normal 0.3-0.8 Comment on above: Performed By: #### C BC #### [facility] [address] [address] [address] Sheldon Cordero Monocytes/100 WBC (Bld) 5.8 % Normal 1.7-12.0 Comment on above: Performed By: #### C BC #### [facility] [address] [address] [address] Sheldon Cordero NEUT # 4.6 103/ul Normal 1.4-6.5 Comment on above: Performed By: #### C BC #### [facility] [address] [address] [address] Sheldon Cordero Neutrophils/100 WBC (Bld) 63.4 % Normal 43.0-75.0 [facility] Comment on above: Performed By: #### C BC #### [facility] [address] [address] [address] Sheldon Cordero Platelet mean volume (Bld) [Entitic vol] 8.9 fL Critically low 9.5-13.5 Comment on above: Performed By: #### C BC #### [facility] [address] [address] [address] Sheldon Cordero PLT 277 103/ul Normal 150-450 [facility] Comment on above: Performed By: #### C BC #### [facility] [address] [address] [address] Sheldon Cordero RBC 4.19 106/ul Critically low 4.20-5.40 [facility] Comment on above: Performed By: #### C BC #### [facility] [address] [place] [address] Dr. Sheldon Cordero WBC 7.2 103/ul Normal 4.0-11.0 Comment on above: Performed By: #### C BC #### [facility] [address] [place] [address] Dr. Sheldon Cordero GLYCOHEMOGLOBIN A1Con 2021 ADA RECOMMENDATION SEE BELOW Normal [facility] Comment on above: Result Comment: ADA RECOMMENDED LIMIT 4.0 - 6.0 ADA THERAPEUTIC TARGET < 7.0 ACTION SUGGESTED > 7.0 Performed By: #### A 1C #### [facility] [address] [place] [address] Dr. Sheldon Cordero Glucose [Mass/Vol] 128 mg/dL Normal [facility] Comment on above: Performed By: #### A 1C #### [facility] [address] [place] [address] Dr. Sheldon Cordero HbA1c (Bld) [Mass fraction] 6.1 % Normal 4.5-6.2 Comment on above: Performed By: #### A 1C #### [facility] [address] [place] [address] Dr. Sheldon Cordero IRONon 11-30-2021 Iron [Mass/Vol] 58.0 ug/dL Normal 50.0-170.0 [facility] Comment on above: Performed By: #### I GERMAN #### [facility] [address] [place] [address] Dr. Sheldon Cordero LIPID PROFILEon 11-30-2021 CHOL-HDL RATIO NORM SEE BELOW Normal [facility] Comment on above: Result Comment: 3.3 - 4.4 LOW RISK 4.4 - 7.1 AVERAGE RISK 7.1 - 11.0 MODERATE RISK >11.0 HIGH RISK Performed By: #### L IPID, TSH, CMP #### [facility] [address] [address] [address] Sheldon Cordero Cholesterol [Mass/Vol] 251 mg/dL Critically high <=200 Comment on above: Performed By: #### L IPID, TSH, CMP #### [facility] [address] [address] [address] Sheldon Cordero Cholesterol in HDL [Mass/Vol] 70 mg/dL Critically high 40-60 Comment on above: Performed By: #### L IPID, TSH, CMP #### [facility] [address] [address] [address] Sheldon Cordero Cholesterol in LDL [Mass/Vol] 161.4 mg/dL Normal Comment on above: Performed By: #### L IPID, TSH, CMP #### [facility] [address] [address] [address] Sheldon Cordero Cholesterol.total/Ch olesterol in HDL [Mass ratio] 3.6 {ratio} Normal Comment on above: Performed By: #### L IPID, TSH, CMP #### [facility] [address] [address] [address] Sheldon Cordero HDL NORMAL > or = 60 mg/dl - LO W CARDIOVASCULAR RISK <40 mg/dl - HIGH CARDIOVASCULAR RISK Normal Comment on above: Performed By: #### L IPID, TSH, CMP #### [facility] [address] [address] [address] Sheldon Cordero LDL CALC NORMAL SEE BELOW Normal [facility] Comment on above: Result Comment: <100 mg/dl OPTIMAL 100 - 129 mg/dl NEAR OR ABOVE OPTIMAL 130 - 159 mg/dl BORDERLINE HIGH 160 - 189 mg/dl HIGH >190 mg/dl VERY HIGH Performed By: #### L IPID, TSH, CMP #### [facility] [address] [address] [address] Sheldon Cordero Triglyceride [Mass/Vol] 98 mg/dL Normal <=150 Comment on above: Performed By: #### L IPID, TSH, CMP #### [facility] [address] [address] [address] Sheldon Cordero VLDL CALC 19.6 mg/dL Normal Comment on above: Performed By: #### L IPID, TSH, CMP #### [facility] [address] [address] [address] Sheldon Cordero PROF 14(COMP METB)on 022 Albumin [Mass/Vol] 3.4 g/dL Normal 3.4-5.0 [facility] Comment on above: Performed By: #### L IPID, TSH, CMP #### [facility] [address] [address] [address] Sheldon Cordero Albumin/Globulin [Mass ratio] 0.9 {ratio} Normal Comment on above: Performed By: #### L IPID, TSH, CMP #### [facility] [address] [address] [address] Sheldon Cordero ALP [Catalytic activity/Vol] 107 U/L Normal 46-116 Comment on above: Performed By: #### L IPID, TSH, CMP #### [facility] [address] [address] [address] Sheldon Cordero ALT [Catalytic activity/Vol] 17 U/L Normal 14-59 Comment on above: Performed By: #### L IPID, TSH, CMP #### [facility] [address] [address] [address] Sheldon Cordero Anion gap [Moles/Vol] 10.9 mmol/L Normal Comment on above: Performed By: #### L IPID, TSH, CMP #### [facility] [address] [address] [address] Sheldon Cordero AST [Catalytic activity/Vol] 11 U/L Critically low 15-37 Comment on above: Performed By: #### L IPID, TSH, CMP #### [facility] [address] [address] [address] Sheldon Cordero Bilirubin [Mass/Vol] 0.3 mg/dL Normal 0.2-1.0 Comment on above: Performed By: #### L IPID, TSH, CMP #### [facility] [address] [address] [address] Sheldon Cordero Calcium [Mass/Vol] 9.1 mg/dL Normal 8.5-10.1 [facility] Comment on above: Performed By: #### L IPID, TSH, CMP #### [facility] [address] [place] [address] Dr. Sheldon Cordero Chloride [Moles/Vol] 106 mmol/L Normal 98-107 Comment on above: Performed By: #### L IPID, TSH, CMP #### [facility] [address] [place] [address] Dr. Sheldon Cordero CO2 [Moles/Vol] 30.6 mmol/L Normal 21.0-32.0 [facility] Comment on above: Performed By: #### L IPID, TSH, CMP #### [facility] [address] [place] [address] Dr. Sheldon Cordero Creatinine [Mass/Vol] 0.93 mg/dL Normal 0.55-1.02 Comment on above: Performed By: #### L IPID, TSH, CMP #### [facility] [address] [place] [address] Dr. Sheldon Cordero EGFR-AF PALAUAN >60 Normal >=60 [facility] Comment on above: Performed By: #### L IPID, TSH, CMP #### [facility] [address] [place] [address] Dr. Sheldon Cordero EGFR-NON AF PALAUAN =60 Normal >=60 Comment on above: Performed By: #### L IPID, TSH, CMP #### [facility] [address] [place] [address] Dr. Sheldon Cordero Globulin (S) [Mass/Vol] 4.0 g/dL Normal Comment on above: Performed By: #### L IPID, TSH, CMP #### [facility] [address] [place] [address] Dr. Sheldon Cordero Glucose [Mass/Vol] 101 mg/dL Normal 74-106 [facility] Comment on above: Performed By: #### L IPID, TSH, CMP #### [facility] [address] [place] [address] Dr. Sheldon Cordero Potassium [Moles/Vol] 4.5 mmol/L Normal 3.5-5.1 Comment on above: Performed By: #### L IPID, TSH, CMP #### [facility] [address] [address] [address] Sheldon Cordero Protein [Mass/Vol] 7.4 g/dL Normal 6.4-8.2 [facility] Comment on above: Performed By: #### L IPID, TSH, CMP #### [facility] [address] [place] [address] Dr. Sheldon Cordero Sodium [Moles/Vol] 143 mmol/L Normal 136-145 [facility] Comment on above: Performed By: #### L IPID, TSH, CMP #### [facility] [address] [place] [address] Dr. Sheldon Cordero Urea nitrogen [Mass/Vol] 18.0 mg/dL Normal 7.0-18.0 Comment on above: Performed By: #### L IPID, TSH, CMP #### [facility] [address] [place] [address] Dr. Sheldon Cordero Urea nitrogen/Creatinine [Mass ratio] 19.4 mg/mg Normal Comment on above: Performed By: #### L IPID, TSH, CMP #### [facility] [address] [place] [address] Dr. Sheldon Cordero TSHon 11-30-2021 TSH 2.774 uIU/mL Normal 0.358-3.740 [facility] Comment on above: Performed By: #### L IPID, TSH, CMP #### [facility] [address] [place] [address] Dr. Sheldon Cordero Lactic Acidon 11-02-2018 Lactate [Mass/Vol] 7.5 mg/dL Normal 4.5-19.8 [facility] Comment on above: Performed By: #### 2 [id number] #### [facility] [address] [address] CNOVon 06-11-2018 CNOV Office Visit (RADTSA ) JOSS WASHINGTON ([id number]) 1950 F Date Time Provider Department 06/11/18 [...] pathologic stage 0 (Tis Nx ?M0), ER-positive, [place]-positive, s/p partial mastectomy ? ? INTERVAL HISTORY: [...] M.D., FACRO ? cc: Lawrence Rai MD [address] [place] [id number] ? Katherine Downs MD [facility] [address] [place] [address] ? Dr. Berman ? This note was dictated with Dragon Naturally Speaking and may contain some grammatical errors due to limitations of the software. Dexter De León RN, was present in the examination room throughout the encounter. 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 Author Type: Physician Type: Progress Notes Filed: 06/11/2018 2:48 PM Note Text: Radiation Oncology - Follow Up Note PATIENT NAME: Joss Washington PATIENT DIAGNOSIS: ?DCIS of the Right breast, UIQ, pathologic stage 0 (Tis Nx ?M0), ER-positive, [place]-positive, s/p partial mastectomy ? ? INTERVAL HISTORY: [...] M.D., FACRO ? cc: Lawrence Rai MD [address] [place] [id number] ? Katherine Downs MD [facility] [address] [place] [address] ? Dr. Berman ? This note was dictated with Dragon Naturally Speaking and may contain some grammatical errors due to limitations of the software. Dexter De León RN, was present in the examination room throughout the encounter. Normal [facility] CNOVon 02-12-2018 CNOV Office Visit (RADTSA ) JOSS WASHINGTON ([id number]) 1950 F Date Time Provider Department 02/12/18 [...] pathologic stage 0 (Tis Nx ?M0), ER-positive, [place]-positive, s/p partial mastectomy ? ? INTERVAL HISTORY: [...] examination. ? Signed by: Farheen Cronin M.D., [facility] ? cc: Lawrence Rai MD [address] [place] [address] ? Katherine Downs MD [facility] [address] [place] [address] ? Dr. Berman ? This note was dictated with Jazmin Naturally Speaking and may contain some grammatical errors due to limitations of the software. Dexter De León RN, was present in the examination room throughout the encounter. Referring Provider: LAWRENCE RAI [[id number]] Allergies As of Date: 02/12/2018 (No Known [...] by FARHEEN CRONIN MD on 02/12/18 Normal [facility] PROGRESSon 02-12-2018 Protein mass conc HNO ID: [id number] Author: Farheen Cronin Service: (none) Author Type: Physician Type: Progress Notes Filed: 02/12/2018 10:40 AM Note Text: Radiation Oncology - Follow Up Note PATIENT NAME: Joss Washington PATIENT DIAGNOSIS: ?DCIS of the Right breast, UIQ, pathologic stage 0 (Tis Nx ?M0), ER-positive, [place]-positive, s/p partial mastectomy ? ? INTERVAL HISTORY: [...] M.D., FACRO ? cc: Lawrence Rai MD [address] [place] [id number] ? Katherine Downs MD [facility] [address] [place] [address] ? Dr. Berman ? This note was dictated with Dragon Naturally Speaking and may contain some grammatical errors due to limitations of the software. Dexter De León RN, was present in the examination room throughout the encounter. Normal [facility] PROGRESSon 12-10-2017 Protein mass conc HNO ID: [id number] Author: Lisa (Mattie) Екатерина Service: (none) Author [...] Dr. Downs at this time. Lisa Willams APRN.DIE BAKER Normal [facility] CNOVon 12-04-2017 CNOV Office Visit (RADTSA ) JOSS WASHINGTON ([id number]) 1950 F Date Time Provider Department 12/04/17 [...] pathologic stage 0 (Tis Nx ?M0), ER-positive, [place]-positive, s/p partial mastectomy ? ? INTERVAL HISTORY: [...] M.D., FACRO ? cc: Lawrence Rai MD [facility] [place] [address] ? Katherine Downs MD [facility] [address] [place] [address] ? Dr. Berman ? This note was dictated with Radhaon Naturally Speaking and may contain some grammatical errors due to limitations of the software. Anatoliy Ha MA was present in the examination room throughout the encounter. Referring Provider: FARHEEN CRONIN [[id number]] Allergies As of Date: 12/04/2017 (No Known [...] Status:Closed by FARHEEN CRONIN MD on 12/04/17 [facility] CNOVSPon 12-04-2017 CNOVSP Visit (SP) Office (HEMASA) JOSS WASHINGTON ([id number]) 1950 F Date Time Provider Department 12/04/17 11:00 AM LISA WILLAMS (DIE BAKER) CHRISS During your visit today, we recorded [...] Dr. Downs at this time. Lisa Willams APRN.DIE BAKER Referring Provider: FARHEEN CRONIN [[id number]] Allergies As of Date: 12/04/2017 (No Known [...] by LISA WILLAMS CNP on 12/10/17 Normal [facility] PROGRESSon 12-04-2017 Protein mass conc HNO ID: [id number] Author: Farheen Cronin Service: (none) Author Type: Physician Type: Progress Notes Filed: 12/04/2017 1:55 PM Note Text: Radiation Oncology - Follow Up Note PATIENT NAME: Joss Washington PATIENT DIAGNOSIS: DCIS of the Right breast, UIQ, pathologic stage 0 (Tis Nx ?M0), ER-positive, [place]-positive, s/p partial mastectomy ? ? INTERVAL HISTORY: [...] M.D., KAY ? cc: Lawrence Rai MD [facility] [place] [address] ? Katherine Downs MD [facility] [address] [place] [address] ? Dr. Berman ? This note was dictated with Dragon Naturally Speaking and may contain some grammatical errors due to limitations of the software. Anatoliy Ha MA was present in the examination room throughout the encounter. Normal [facility] CNOVon 10-30-2017 CNOV Office Visit (RADTSA ) JOSS WASHINGTON ([id number]) 1950 F Date Time Provider Department 10/30/17 [...] pathologic stage 0 (Tis Nx M0), ER-positive, [place]-positive, s/p partial mastectomy ? INTERVAL HISTORY: Mrs. [...] follow-up examination. Signed by: Farheen Cronin M.D., [facility] cc: Lawrence Rai MD [address] [place] [address] ? Katherine Downs MD [facility] [address] [place] [address] ? Dr. Berman ? This note was dictated with Radhaon Naturally Speaking and may contain some grammatical errors due to limitations of the software. Dexter De León RN was present in the examination room throughout the encounter. Referring Provider: FARHEEN CRONIN [[id number]] Allergies As of Date: 10/30/2017 (No Known [...] by FARHEEN CRONIN MD on 10/30/17 Normal [facility] PROGRESSon 10-30-2017 Protein mass conc HNO ID: [id number] Author: Farheen Cronin Service: (none) Author Type: Physician Type: Progress Notes Filed: 10/30/2017 3:16 PM Note Text: Radiation Oncology - Follow Up Note PATIENT NAME: Joss Washington PATIENT DIAGNOSIS: DCIS of the Right breast, UIQ, pathologic stage 0 (Tis Nx M0), ER-positive, [place]-positive, s/p partial mastectomy ? INTERVAL HISTORY: Mrs. [...] Cronin M.D., [facility] cc: Lawrence Rai MD [facility] [place] [address] ? Katherine Downs MD [facility] [address] [place] [address] ? Dr. Berman ? This note was dictated with Dragon Naturally Speaking and may contain some grammatical errors due to limitations of the software. Dexter De León RN was present in the examination room throughout the encounter. Normal [facility] PROGRESSon 10-16-2017 Protein mass conc HNO ID: [id number] Author: Farheen Cronin Service: (none) Author Type: Physician Type: Progress Notes Filed: 10/17/2017 12:34 AM Note Text: [facility] Radiation Oncology Department RADIATION ONCOLOGY - COMPLETION NOTE PATIENT: JOSS WASHINGTON : 1950 DATES OF TREATMENT: 08/27/2017 to 10/15/2017 DIAGNOSIS: DCIS of the Right breast, UIQ, pathologic stage 0 (Tis Nx M0), ER-positive, [place]-positive, s/p partial mastectomy AREA TREATED: Right Breast [...] JULIETTE 10/16/20179:57 AM cc: Dr. Lawrence Downs [facility] CNOVon 10-14-2017 CNOV Office Visit (RADTSA ) JOSS WASHINGTON ([id number]) 1950 F Date Time Provider Department 10/14/17 [...] the Right?breast, UIQ,?pathologic?stage 0 (Tis Nx M0),?ER-positive, [place]-positive, s/p?partial mastectomy ? COURSE: definitive AREA TREATED: [...] by FARHEEN CRONIN MD on 10/14/17 Normal [facility] PROGRESSon 10-14-2017 Protein mass conc HNO ID: [id number] Author: Farheen Cronin Service: (none) Author Type: Physician Type: Progress Notes Filed: 10/14/2017 2:16 PM Note Text: Radiation Oncology - On Treatment Review (OTR) Note PATIENT NAME: Joss Washington PATIENT DIAGNOSIS: DCIS?of the Right?breast, UIQ,?pathologic?stage 0 (Tis Nx M0),?ER-positive, W[place]-positive, s/p?partial mastectomy ? COURSE: definitive AREA TREATED: [...] as planned. ? Farheen Cronin MD? Normal [facility] CNOVon 10-07-2017 CNOV Office Visit (RADTSA ) JOSS WASHINGTON ([id number]) 1950 F Date Time Provider Department 10/07/17 [...] the Right?breast, UIQ,?pathologic?stage 0 (Tis Nx M0),?ER-positive, [place]-positive, s/p?partial mastectomy ? COURSE: definitive AREA TREATED: [...] AM Status: Signed Status: Post-menopausal. Dexter De Lenó RN Encounter Status:Closed by FARHEEN CRONIN MD on 10/07/17 Normal [facility] PROGRESSon 10-07-2017 Protein mass conc HNO ID: [id number] Author: Farheen Cronin Service: (none) Author Type: Physician Type: Progress Notes Filed: 10/07/2017 11:21 AM Note Text: Radiation Oncology - On Treatment Review (OTR) Note PATIENT NAME: Joss Washington PATIENT DIAGNOSIS: DCIS?of the Right?breast, UIQ,?pathologic?stage 0 (Tis Nx M0),?ER-positive, WY-positive, s/p?partial mastectomy ? COURSE: definitive AREA TREATED: [...] as planned. ? Farheen Cronin MD? [facility] CNOVon 09-30-2017 CNOV Office Visit (RADTSA ) JOSS WASHINGTON ([id number]) 1950 F Date Time Provider Department 09/30/17 [...] the Right?breast, UIQ,?pathologic?stage 0 (Tis Nx M0),?ER-positive, WY-positive, s/p?partial mastectomy ? COURSE: definitive AREA TREATED: [...] right breast*INVALID FOR* Visit Notes: >> Anatoliy (Artificial Flowers Dyer) CLARA Ha loni Sep 30, 2017 10:21 AM Status: Signed Status: Post-menopausal. Encounter Status:Closed by FARHEEN CRONIN MD on 09/30/17 [facility] PROGRESSon 09-30-2017 Protein mass conc HNO ID: [id number] Author: Farheen Cronin Service: (none) Author Type: Physician Type: Progress Notes Filed: 09/30/2017 11:48 AM Note Text: Radiation Oncology - On Treatment Review (OTR) Note PATIENT NAME: Joss Washington PATIENT DIAGNOSIS: DCIS?of the Right?breast, UIQ,?pathologic?stage 0 (Tis Nx M0),?ER-positive, WY-positive, s/p?partial mastectomy ? COURSE: definitive AREA TREATED: [...] as planned. ? Farheen Cronin MD? [facility] CNOVon 09-22-2017 CNOV Office Visit (RADTSA ) JOSS WASHINGTON ([id number]) 1950 F Date Time Provider Department 09/22/17 [...] the Right?breast, UIQ,?pathologic?stage 0 (Tis Nx M0),?ER-positive, W[place]-positive, s/p?partial mastectomy ? COURSE: definitive AREA TREATED: [...] by FARHEEN CRONIN MD on 09/22/17 [facility] PROGRESSon 09-22-2017 Protein mass conc HNO ID: [id number] Author: Farheen Cronin Service: (none) Author Type: Physician Type: Progress Notes Filed: 09/22/2017 2:38 PM Note Text: Radiation Oncology - On Treatment Review (OTR) Note PATIENT NAME: Joss Washington PATIENT DIAGNOSIS: DCIS?of the Right?breast, UIQ,?pathologic?stage 0 (Tis Nx M0),?ER-positive, WY-positive, s/p?partial mastectomy ? COURSE: definitive AREA TREATED: [...] treatment as planned. ? Farheen Cronin MD [facility] CBC and Differentialon 09-18 Abs Baso 0.03 k/uL Normal 0.00-0.10 [facility] Abs Vernon 0.45 k/uL Normal 0.00-0.86 [facility] Abs Neut 5.16 k/uL Normal 1.45-7.50 [facility] Basophils/100 WBC (Bld) 0.4 % Normal [facility] Eosinophils #/vol (Bld) 0.23 10*3/uL Normal 0.00-0.45 [facility] Eosinophils/100 WBC (Bld) 3.2 % Normal [facility] Erythrocyte distribution width Ratio (RBC) 15.0 % Normal 11.5-15.0 [facility] Hematocrit Volume Fraction (Bld) 39.1 % Normal 36.0-46.0 [facility] Hemoglobin mass conc (Bld) 13.0 g/dL Normal 11.5-15.5 [facility] Lymphocytes #/vol (Bld) 1.40 10*3/uL Normal 1.00-4.00 [facility] Lymphocytes/100 WBC (Bld) 19.3 % Normal [facility] MCH Entitic mass (RBC) 30.6 pG Normal 26.0-34.0 [facility] MCHC mass conc (RBC) 33.2 g/dL Normal 30.5-36.0 [facility] MCV Entitic volume (RBC) 92.0 fL Normal 80.0-100.0 [facility] Monocytes/100 WBC (Bld) 6.2 % Normal [facility] Neutrophils/100 WBC (Bld) 70.9 % Normal [facility] Platelet mean volume Entitic volume (Bld) 9.5 fL Normal 9.0-12.7 [facility] Platelets #/vol (Bld) 272 10*3/uL Normal 150-400 [facility] RBC #/vol (Bld) 4.25 10*6/uL Normal 3.90-5.20 [facility] WBC #/vol (Bld) 7.27 10*3/uL Normal 3.70-11.00 [facility] CNOVon 09-18-2017 CNOV Office Visit (RADTSA ) FELIXJOSS ([id number]) 1950 F Date Time Provider Department 09/18/17 [...] De León RN Referring Provider: FARHEEN CRONIN [[id number]] Allergies As of Date: 09/18/2017 (No Known [...] Visit Notes: >> Dexter De León RN [facility] Sep 18, 2017 10:01 AM Status: [...] by DEXTER DE LEÓN on 09/18/17 [facility] CNOVon 09-16-2017 CNOV Office Visit (RADTSA ) JOSS WASHINGTON ([id number]) 1950 F Date Time Provider Department 09/16/17 [...] the Right?breast, UIQ,?pathologic?stage 0 (Tis Nx M0),?ER-positive, [place]-positive, s/p?partial mastectomy ? 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 COURSE: definitive AREA TREATED: [...] treatment as planned. ? 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 COURSE: definitive AREA TREATED: [...] requiring intervention. Signed by: Jem Santana MD [facility] CNOVbere 09-08-2017 CNOV Office Visit (RADTSA ) JOSS WASHINGTON ([id number]) 1950 F Date Time Provider Department 09/08/17 10:15 AM JEM SANTANA During your visit today, we recorded the following information about you: Blood pressure Weight 130/82 130.6 kg Anatoliy Graves, STOPPER MAKER HELPER, RN 09/08/2017 12:04 PM Signed Status: Post-menopausal. 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 COURSE: definitive AREA TREATED: [...] by JEM SANTANA MD on 09/18/17 [facility] CBC and Differentialon 09-04 Abs Baso 0.03 k/uL Normal <0.11 [facility] Comment on above: Performed By: #### C BCDIF ####[facility] [place] [phone] Abs Vernon 0.45 k/uL Normal <0.87 [facility] Comment on above: Performed By: #### C BCDIF ####[place] [address] [address] [place] [phone] Abs Neut 3.74 k/uL Normal 1.45-7.50 [facility] Comment on above: Performed By: #### C BCDIF ####[facility] [place] [phone] Basophils/100 WBC (Bld) 0.5 % Normal [facility] Comment on above: Performed By: #### C BCDIF ####[place] [address] [place] [phone] Comment AGC=3.68 [facility] Comment on above: Result Comment: Prel iminary result. Interpret with caution. Final results may vary. Results requested and read back by: /09/04/1710/15/1026/OSITO CASTELLON Performed By: #### C BCDIF ####[place] [address] [address] [place] [phone] Eosinophils #/vol (Bld) 0.23 10*3/uL Normal <0.46 [facility] Comment on above: Performed By: #### C BCDIF ####[facility] [address] [place], [place] [phone] Eosinophils/100 WBC (Bld) 3.7 % Normal [facility] Comment on above: Performed By: #### C BCDIF ####[place] [address] [address] [place] [phone] Erythrocyte distribution width Ratio (RBC) 15.5 % High 11.5-15.0 [facility] Comment on above: Performed By: #### C BCDIF ####[place] [address] [address] [place] [phone] Hematocrit Volume Fraction (Bld) 37.1 % Normal 36.0-46.0 [facility] Comment on above: Performed By: #### C BCDIF ####[place] [phone] Hemoglobin mass conc (Bld) 12.2 g/dL Normal 11.5-15.5 [facility] Comment on above: Performed By: #### C BCDIF ####[place] [phone] Lymphocytes #/vol (Bld) 1.78 10*3/uL Normal 1.00-4.00 [facility] Comment on above: Performed By: #### C BCDIF ####[place] [address] [address] [place] [phone] Lymphocytes/100 WBC (Bld) 28.6 % Normal [facility] Comment on above: Performed By: #### C BCDIF ####[place] [address] [address] [place] [phone] MCH Entitic mass (RBC) 30.3 pG Normal 26.0-34.0 [facility] Comment on above: Performed By: #### C BCDIF ####[place] [address] [address] [place] [phone] MCHC mass conc (RBC) 32.9 g/dL Normal 30.5-36.0 [facility] Comment on above: Performed By: #### C BCDIF ####[place] [address] [place], [place] [phone] MCV Entitic volume (RBC) 92.1 fL Normal 80.0-100.0 [facility] Comment on above: Performed By: #### C BCDIF ####[place] [address] [address], [place] [phone] Monocytes/100 WBC (Bld) 7.2 % Normal [facility] Comment on above: Performed By: #### C BCDIF ####[address] [place], [place] [phone] Neutrophils/100 WBC (Bld) 60.0 % Normal [facility] Comment on above: Performed By: #### C BCDIF ####[address] [phone] Platelet mean volume Entitic volume (Bld) 9.3 fL Normal 9.0-12.7 [facility] Comment on above: Performed By: #### C BCDIF ####[place] [address] [address], [place] [phone] Platelets #/vol (Bld) 285 10*3/uL Normal 150-400 [facility] Comment on above: Performed By: #### C BCDIF ####[place] [address] [place], [place] [phone] RBC #/vol (Bld) 4.03 10*6/uL Normal 3.90-5.20 [facility] Comment on above: Performed By: #### C BCDIF ####[place] [address] [address], [place] [phone] WBC #/vol (Bld) 6.19 10*3/uL Normal 3.70-11.00 [facility] Comment on above: Performed By: #### C BCDIF ####[facility] [address] [place], [place] [phone] CNOVon 09-04-2017 CNOV Office Visit (RADTSA ) JOSS WASHINGTON ([id number]) 1950 F Date Time Provider Department 09/04/17 [...] De León RN Referring Provider: FARHEEN CRONIN [[id number]] Allergies As of Date: 09/04/2017 (No Known [...] by DEXTER DE LEÓN on 09/04/17 [facility] CNOVon 09-02-2017 CNOV Office Visit (RADTSA ) JOSS WASHINGTON ([id number]) 1950 F Date Time Provider Department 09/02/17 [...] pathologic stage 0 (Tis Nx M0), ER-positive, WY-positive, s/p partial mastectomy COURSE: definitive AREA TREATED: [...] by FARHEEN CRONIN MD on 09/02/17 [facility] PROGRESSon 09-02-2017 Protein mass conc HNO ID: [id number] Author: Farheen Cronin Service: (none) Author Type: Physician Type: Progress Notes Filed: 09/02/2017 1:31 PM Note Text: Radiation Oncology - On Treatment Review (OTR) Note PATIENT NAME: Joss Washington PATIENT DIAGNOSIS: DCIS of the Right breast, UIQ, pathologic stage 0 (Tis Nx M0), ER-positive, WY-positive, s/p partial mastectomy COURSE: definitive AREA TREATED: [...] radiation treatment as planned. Farheen Cronin MD [facility] CNOVon 08-27-2017 CNOV Office Visit (RADTSA ) JOSS WASHINGTON ([id number]) 1950 F Date Time Provider Department 08/27/17 1:30 PM JEM SANTANA During your visit today, we recorded the following information about you: Dexter De León RN, RN 08/27/2017 2:20 PM Signed Status: Post-menopausal. 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 Plan and MU calculations [...] of treatment. Signed by: Jem Santana MD [facility] CT NON-RADIOLOGY -NBNRo n 08-20-[address] [facility] [address] NON-RADIOLOGY -NBNR [facility] - CT Images - Obtained Outside of Imaging [place] [id number] [facility] CNCNPATEDon 08-20-2017 CNCNPATED Education (RADTSA) JOSS WASHINGTON ([id number]) 1950 F Date Time Provider Department 08/20/17 ANATOLIY HA LPN Reason for Visit: Patient Education [91] Visit Notes: >> Anatoliy Ha RN FriAugust 20, 2017 3:46 PM Status: Signed Radiation Therapy - Patient Education Note PATIENT NAME: Joss Washington PATIENT August 20, 2017 [facility] FACILITY/LOCATION: [facility] READINESS TO LEARN Cognitive Ability: Alert [...] need for social work, van service, and rn radiation oncology. Was approved? No Signed by: Anatoliy Ha [...] Encounter Status:Closed by ANATOLIY HA on 08/20/17 [facility] CNOVon 08-20-2017 CNOV Office Visit (RADTSA ) JOSS WASHINGTON ([id number]) 1950 F Date Time Provider Department 08/20/17 [...] pathologic stage 0 (Tis Nx M0), ER-positive, WY-positive, s/p partial mastectomy. HPI: 67 year old [...] with her . 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 COMPLETE REVIEW [...] Farheen Cronin MD cc: Lawrence Rai MD [address] [place] [phone] Katherine Downs MD [facility] [address] [place] [address] Dr. Berman This note was dictated with Jazmin Naturally Speaking and may contain some grammatical errors due to limitations of the software. Referring Provider: KATHERINE DOWNS [[id number]] Allergies As of Date: 08/20/2017 (No Known [...] by FARHEEN CRONIN MD on 08/20/17 [facility] PROGRESSon 08-20-2017 Protein mass conc HNO ID: [id number] Author: Farheen Cronin Service: (none) Author Type: Physician Type: Progress Notes Filed: 08/20/2017 3:39 PM Note Text: Radiation Oncology - New Patient/Consult Note PATIENT NAME: Joss Washington PATIENT REQUESTING PROVIDER: Dr. Katherine Downs DIAGNOSIS: 67 year old female with DCIS of the Right breast, UIQ, pathologic stage 0 (Tis Nx M0), ER-positive, WY-positive, s/p partial mastectomy. HPI: 67 year old [...] with her . 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 COMPLETE REVIEW [...] Farheen Cronin MD cc: Lawrence Rai MD [address] [place] [phone] Katherine Downs MD [facility] [address] [place] [address] Dr. Berman This note was dictated with Dragon Naturally Speaking and may contain some grammatical errors due to limitations of the software. 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 / NRS 08/20/20173:59 PM [facility] Protein mass conc HNO ID: [id number] Author: Farheen Cronin Service: (none) Author Type: Physician Type: Progress Notes Filed: 08/27/2017 12:34 AM Note Text: JOSS WASHINGTON [id number] 08/20/2017 [facility] Department of Radiation Oncology Treatment Planning Note [...] Signed Farheen Cronin M.D. 08/26/20171:02 PM [facility] CNOVSPon 08-14-2017 CNOVSP Visit (SP) Office (HEMACL) JOSS WASHINGTON ([id number]) 1950 F Date Time Provider Department 08/14/17 [...] Katherine Downs MD Referring Provider: GEREMIAS BERMAN [[id number]] Allergies As of Date: 08/14/2017 (No Known Allergies) Date Reviewed: 08/14/2017 Reviewed by: Iesha Luis - Fully Assessed Primary Visit Diagnosis:Ductal carcinoma in situ (DCIS) of right breast [D05.11] Order(s):RAD/ONC CONSULT [9037] Order #: [id number]: 1 Prescriptions as of 08/14/2017 Sig: VENTOLIN [...] by KATHERINE DOWNS MD on 08/14/17 [facility] PROGRESSon 08-14-2017 Protein mass conc HNO ID: [id number] Author: Katherine Downs Service: (none) Author Type: [...] needed. - RAD/ONC CONSULT Katherine Downs MD [facility] US-US GUIDE LOCAL BREAST RT IMPORTon 07-04-2017 US-US GUIDE LOCAL BREAST RT IMPORT Images were obtained outside of [facility] [id number] [facility] MAMM OUTSIDE DICOM IMPORT -N BNRon 06-18-2017 MAMM OUTSIDE DICOM IMPORT -NBNR Images were obtained outside of [facility] [id number] [facility] Encounters Encounter Date Encounter Type Care Provider Facility Start: 03-16-2022 End: 03-17-[address] LAWRENCE [facility] Facility:[facility] Start: 02-28-[address] LAWRENCE [facility] Facility :[facility] Start: 02-08-2022 End: 02-09-[address] LAWRENCE [facility] Facility:[facility] Start: 11-30-2021 End: 12-01-[address] LAWRENCE [facility] Facility:[facility] Start: 06-11-2018 End: 06-15-2018 Patient encounter procedure FARHEEN CRONIN [facility] Start: 02-12-2018 End: 02-13-2018 Patient encounter procedure FARHEEN CRONIN [facility] Start: 12-04-2017 End: 12-11-2017 Patient encounter procedure LISA (DIE BAKER) ЕКАТЕРИНА [facility] Start: 10-30-2017 End: 10-30-2017 Patient encounter procedure FARHEEN CRONIN [facility] Start: 10-15-2017 End: 10-20-2017 Patient encounter procedure KATHERINE DOWNS [facility] Start: 10-14-2017 End: 10-14-2017 Patient encounter procedure FARHEEN CRONIN [facility] Start: 10-13-2017 End: 10-15-2017 Patient encounter procedure KATHERINE DOWNS [facility] Start: 10-09-2017 End: 10-30-2017 Patient encounter procedure KATHERINE DOWNS [facility] Start: 10-08-2017 End: 10-10-2017 Patient encounter procedure KATHERINE DOWNS [facility] Start: 10-07-2017 End: 10-07-2017 Patient encounter procedure FARHEEN CRONIN [facility] Start: 10-06-2017 End: 10-10-2017 Patient encounter procedure KATHERINE DOWNS [facility] Start: 10-03-2017 End: 10-08-2017 Patient encounter procedure KATHERINE DOWNS [facility] Start: 10-02-2017 End: 10-20-2017 Patient encounter procedure KATHERINE DOWNS [facility] Start: 09-30-2017 End: 09-30-2017 Patient encounter procedure FARHEEN CRONIN [facility] Start: 09-29-2017 End: 10-06-2017 Patient encounter procedure KATHERINE DOWNS [facility] Start: 09-26-2017 End: 10-02-2017 Patient encounter procedure KATHERINE DOWNS [facility] Start: 09-25-2017 End: 09-29-2017 Patient encounter procedure KATHERINE DOWNS [facility] Start: 09-24-2017 End: 10-06-2017 Patient encounter procedure KATHERINE DOWNS [facility] Start: 09-23-2017 End: 09-29-2017 Patient encounter procedure KATHERINE DOWNS [facility] Start: 09-22-2017 End: 09-22-2017 Patient encounter procedure FARHEEN CRONIN [facility] Start: 09-19-2017 End: 09-22-2017 Patient encounter procedure KATHERINE DOWNS [facility] Start: 09-18-2017 End: 09-18-2017 Patient encounter procedure FARHEEN CRONIN [facility] Start: 09-17-2017 End: 09-30-2017 Patient encounter procedure KATHERINE DOWNS [facility] Start: 09-16-2017 End: 09-16-2017 Patient encounter procedure FARHEEN CRONIN [facility] Start: 09-15-2017 End: 09-17-2017 Patient encounter procedure KATHERINE DOWNS [facility] Start: 09-12-2017 End: 09-17-2017 Patient encounter procedure KATHERINE DOWNS [facility] Start: 09-11-2017 End: 09-15-2017 Patient encounter procedure KATHERINE DOWNS [facility] Start: 09-10-2017 End: 09-22-2017 Patient encounter procedure KATHERINE DOWNS [facility] Start: 09-09-2017 End: 09-15-2017 Patient encounter procedure KATHERINE DOWNS [facility] Start: 09-08-2017 End: 09-08-2017 Patient encounter procedure JEM SANTANA [facility] Start: 09-05-2017 End: 09-15-2017 Patient encounter procedure KATHERINE DOWNS [facility] Start: 09-04-2017 End: 09-04-2017 Patient encounter procedure ZULEMAAdrián Celeste CRONIN [facility] Start: 09-03-2017 End: 09-15-2017 Patient encounter procedure KATHERINE DOWNS [facility] Start: 09-02-2017 End: 09-02-2017 Patient encounter procedure FARHEEN CRONIN [facility] Start: 09-01-2017 End: 09-04-2017 Patient encounter procedure KATHERINE DOWNS [facility] Start: 08-29-2017 End: 09-01-2017 Patient encounter procedure KATHERINE DOWNS [facility] Start: 08-28-2017 End: 09-01-2017 Patient encounter procedure KATHERINE DOWNS [facility] Start: 08-27-2017 End: 08-27-2017 Patient encounter procedure JEM SANTANA [facility] Start: 08-20-2017 End: 08-21-2017 Patient encounter procedure ZULEMAAdrián Celeste BARBOSAI [facility] Start: 08-14-2017 End: 08-15-2017 [facility] Payers Date Payer Category Payer Medicare [id number] 1958 Self-pay [id number] 1958 Unknown [id number] 1950 Unknown [id number] 2.16.84 [id number] 1950 Unknown [id number] 2.16.84 [id number] 1950 Unknown [id number] 2.16.84 [id number] 1950 Unknown [id number] 2.16.84 [id number] Summary Purpose Family History No Family History Records FoundNo Family History Records FoundNo Family History Records Found Advance Directives No Advanced Directives Records FoundNo Advanced Directives Records FoundNo Advanced Directives Records Found Additional Source Comments INFORMATION SOURCE (unrecogn ized section and content) DATE CREATED AUTHOR 06/15/2018 [facility] DATE CREATED AUTHOR AUTHOR'S ORGANIZ ATION 07/26/2019 [facility] DATE CREATED AUTHOR AUTHOR'S ORGANIZ ATION [...] BE BASED ON THE PRIMARY CLINICAL RECORDS. [employer] provides no warranty or guarantee of the accuracy or completeness of information in this document.
[2024-01-21 16:20] LABS: Internal Control Within Normal Limits; Occult Blood Negative
== END 2024-01-20 10:01 | disposition home or self-care (01) ==
LOC: LAB 10:00
PROVIDERS: PCP Family Medicine; Visit Provider Family Medicine
DX: Z00.00 Encounter for general adult medical examination without abnormal findings (principal); I10 Essential (primary) hypertension; E55.9 Vitamin D deficiency, unspecified; E78.5 Hyperlipidemia, unspecified; R53.83 Other fatigue; E03.9 Hypothyroidism, unspecified; Z12.12 Encounter for screening for malignant neoplasm of rectum; R73.09 Other abnormal glucose
CPT/HCPCS: G0328

== ENCOUNTER 2024-03-18 10:42 | Observation (INO) | payer MEDICARE, OTHER, SELFPAY ==
[2024-03-18] VITALS (17 sets, daily range): BP systolic 132–160; BP diastolic 74–90; PULSE 60–77; TEMP 36.5–36.7; O2SAT 91–100; BMI 50.3; BMI 54.7
--- NOTE | 2024-03-18 11:14 | CT_ITS ---
The [address] [address] Patient Name: JOSS WASHINGTON MRN: [id number] date: 1950 Sex: F Assigned Patient Location: ER Current Patient Location: ER Accession/Order Number: [id number] Exam Date: 03/18/2024 11:25 Report Date: 03/18/2024 11:41 At the request of: OPAL LOPES Procedure: CT stroke head/brain wo con EXAM: CT stroke head/brain wo con HISTORY: TIA symptoms COMPARISON: None. TECHNIQUE: Axial noncontrast CT imaging of the head was performed with coronal and sagittal reformats. This CT exam was performed using one or more of the following dose reduction techniques: Automated exposure control, adjustment of the MA and/or kV according to patient size, or use of iterative reconstruction technique. FINDINGS: Calvarium/skull base: No evidence of acute fracture or destructive lesion. Paranasal sinuses: No air fluid levels. Opacification of a single posterior right ethmoid air cell. Partially visualized presumed mucosal retention cyst involving the posterior left maxillary sinus. Brain: No acute intracranial hemorrhage. No acute large vascular territory infarct. No mass lesion or mass effect. No hydrocephalus. CT/CT stroke head/brain wo con IMPRESSION: No acute large vascular territory infarct or acute intracranial hemorrhage. If there is clinical concern for acute ischemia recommend MRI brain for further evaluation. Electronically authenticated by: ELIAZAR MUSA Date: 03/18/2024 11:41
--- NOTE | 2024-03-18 11:15 | ECG_ITS ---
The [facility] Test Date: 2024-03-18 Pat Name: JOSS WASHINGTON Department: Room: - Gender: Female Pharmacist Aide: : 1950 Requested By: LAWRENCE ALBERT Order Number: [id number] Reading MD: LAWRENCE ALBERT Measurements Intervals [place] Rate: 61 P: 62 NM: 130 QRS: 36 QRSD: 88 T: -30 QT: 404 QTc: 407 Interpretive Statements 1100 Sinus rhythm [address] depression [address] & Tw[place] abnormality 9130 borderline ECG Compared to ECG 11/02/2018 17:24:42 No significant changes Electronically Signed On 03-20-2024 7:52:44 EST by LAWRENCE ALBERT
[2024-03-18 11:48] LABS: Basophils Absolute Auto 0.1 10^3/uL (0.0-0.1); Basophils Percent Auto 0.6 % (0.2-2.0); Eosinophils Absolute Auto 0.3 10^3/uL (0.0-0.7); Eosinophils Percent Auto 3.3 % (0.9-7.0); Hematocrit 39.1 % (36.0-48.0); Hemoglobin 12.3 g/dL (12.0-16.0); Immature Granulocytes Abs Auto 0.07 10^3/uL (0.00-0.03); Immature Granulocytes Pct Auto 0.8 % (0.0-0.5); Lymphocytes Absolute Auto 1.9 10^3/uL (1.2-3.8); Lymphocytes Percent Auto 22.4 % (20.5-60.0); Mean Corpuscular HGB Conc 31.5 g/dL (29.9-35.2); Mean Corpuscular Volume 95.4 fL (81.0-99.0); Mean Platelet Volume 9.2 fL (9.5-13.5); Monocytes Absolute Auto 0.7 10^3/uL (0.3-0.8); Monocytes Percent Auto 8.5 % (1.7-12.0); Neutrophils Absolute Auto 5.6 10^3/uL (1.4-6.5); Neutrophils Percent Auto 64.4 % (43.0-75.0); Platelet Count 292 10^3/uL (150-450); Red Cell Distribution Width 14.3 % (11.0-15.0); White Blood Count 8.6 10^3/uL (4.0-11.0)
[2024-03-18 11:57] LABS: Alanine Aminotransferase 20 U/L (14-59); Albumin Globulin Ratio 0.7; Albumin Level 3.1 g/dL (3.4-5.0); Alkaline Phosphatase 135 U/L (46-116); Anion Gap 11.3; Aspartate Amino Transferase 14 U/L (15-37); BUN Creatinine Ratio 16.5; Bilirubin Total 0.3 mg/dL (0.2-1.0); Calcium 9.1 mg/dL (8.5-10.1); Carbon Dioxide 30.5 mmol/L (21.0-32.0); Chloride 105 mmol/L (98-107); Estimated GFR (African America >60 (>=60 mL/min/1.73m^2); Estimated GFR (Non-African Ame 56 (>=60 mL/min/1.73m^2); Globulin 4.2 g/dL; Glucose 84 mg/dL (74-106); Potassium 3.8 mmol/L (3.5-5.1); Sodium 143 mmol/L (136-145); Total Protein 7.3 g/dL (6.4-8.2)
[2024-03-18 11:58] LABS: INR 0.96; Prothrombin Time 10.2 sec (9.0-11.6)
--- NOTE | 2024-03-18 12:36 | CT_ITS ---
The [address] [address] Patient Name: JOSS WASHINGTON MRN: [id number] date: 1950 Sex: F Assigned Patient Location: ER Current Patient Location: Accession/Order Number: [id number] Exam Date: 03/18/2024 12:50 Report Date: 03/18/2024 13:23 At the request of: OPAL LOPES Procedure: CT angio neck EXAM: CT angio head, CT angio neck HISTORY: TIA COMPARISON: Noncontrast CT head performed the same day and reported separately. TECHNIQUE: Postcontrast CTA imaging of the head and neck was performed with coronal and sagittal reformats. Maximum intensity projection reformats were performed on a separate workstation. NASCET criteria was utilized. This CT exam was performed using one or more of the following dose reduction techniques: Automated exposure control, adjustment of the MA and/or kV according to patient size, or use of iterative reconstruction technique. FINDINGS: Aortic arch: Imaged portion shows no evidence of aneurysm. No significant stenosis of the major origins of the major arch vessels. Right carotid system: No evidence of significant (50% or greater) stenosis or occlusion. Left carotid system: No evidence of significant (50% or greater) stenosis or occlusion. Vertebral arteries: Mild left vertebral artery dominance. No evidence of significant (50% or greater) stenosis or occlusion. Anterior circulation: No evidence of aneurysm, significant stenosis, or occlusion. Vertebrobasilar system: No evidence of aneurysm, significant stenosis, or occlusion. Venous sinuses: Grossly patent. 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 This appears separate from the adjacent cavernous internal carotid arteries and is not thought to represent an aneurysm.. Visualized portion of of the lungs are clear. Inferior left maxillary sinus mucosal retention cyst with moderate mucosal thickening and associated supernumerary tooth extending into the inferior left maxillary sinus. Mild mucosal thickening of the right maxillary sinus and right ethmoid air cells. CT/CT angio neck IMPRESSION: 1. No significant stenosis, large vessel occlusion or aneurysm involving the neck or intracranial arterial vasculature. 2. 11 mm sella turcica and angioma anteriorly better evaluated on the current study secondary postcontrast imaging. No substantial mass effect. If not previously evaluated elsewhere consider MR brain with and without contrast with thin section imaging through the sella/skull base for further evaluation. Electronically authenticated by: ELIAZAR MUSA Date: 03/18/2024 13:23
--- NOTE | 2024-03-18 12:36 | CT_ITS ---
The [address] [address] Patient Name: JOSS WASHINGTON MRN: [id number] date: 1950 Sex: F Assigned Patient Location: ER Current Patient Location: Accession/Order Number: [id number] Exam Date: 03/18/2024 12:50 Report Date: 03/18/2024 13:23 At the request of: OPAL LOPES Procedure: CT angio head EXAM: CT angio head, CT angio neck HISTORY: TIA COMPARISON: Noncontrast CT head performed the same day and reported separately. TECHNIQUE: Postcontrast CTA imaging of the head and neck was performed with coronal and sagittal reformats. Maximum intensity projection reformats were performed on a separate workstation. NASCET criteria was utilized. This CT exam was performed using one or more of the following dose reduction techniques: Automated exposure control, adjustment of the MA and/or kV according to patient size, or use of iterative reconstruction technique. FINDINGS: Aortic arch: Imaged portion shows no evidence of aneurysm. No significant stenosis of the major origins of the major arch vessels. Right carotid system: No evidence of significant (50% or greater) stenosis or occlusion. Left carotid system: No evidence of significant (50% or greater) stenosis or occlusion. Vertebral arteries: Mild left vertebral artery dominance. No evidence of significant (50% or greater) stenosis or occlusion. Anterior circulation: No evidence of aneurysm, significant stenosis, or occlusion. Vertebrobasilar system: No evidence of aneurysm, significant stenosis, or occlusion. Venous sinuses: Grossly patent. 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 This appears separate from the adjacent cavernous internal carotid arteries and is not thought to represent an aneurysm.. Visualized portion of of the lungs are clear. Inferior left maxillary sinus mucosal retention cyst with moderate mucosal thickening and associated supernumerary tooth extending into the inferior left maxillary sinus. Mild mucosal thickening of the right maxillary sinus and right ethmoid air cells. CT/CT angio head IMPRESSION: 1. No significant stenosis, large vessel occlusion or aneurysm involving the neck or intracranial arterial vasculature. 2. 11 mm sella turcica and angioma anteriorly better evaluated on the current study secondary postcontrast imaging. No substantial mass effect. If not previously evaluated elsewhere consider MR brain with and without contrast with thin section imaging through the sella/skull base for further evaluation. Electronically authenticated by: ELIAZAR MUSA Date: 03/18/2024 13:23
[2024-03-18] MEDS: ASPIRIN 81 MG TAB.CHEW 324 MG PO (13:35)
--- NOTE | 2024-03-18 13:41 | ED.EYEPROB1 ---
HPI - Eye Problem General Chief complaint: Eye Problems Stated complaint: VISION ISSUE Time Seen by Provider: 03/18/24 11:05 Source: patient Mode of arrival: walk-in Limitations: no limitations History of Present Illness HPI Narrative: The patient have history of hypertension as well as hyperlipidemia coming to the ER 2 hours after she had an episode of abnormal vision in both eyes, the patient mentioned that this happened around 9:00 and she showed up to our hospital around 12 noon, the patient mentioned that she was just sitting with no preceding symptoms she had some vision like kaleidoscope in both eyes mostly at the periphery, the symptoms are continued for at least 25 minutes after which it resolved while she was trying to get to her primary care doctor who told her to go to the ER The patient had no chest pain headache or any other complaints at any time By the time the patient arrived to the ER her symptoms already resolved Related Data Home Medications ?Medication ?Instructions ?Recorded ?Confirmed diltiazem HCl 120 mg tablet 120 mg PO BID 03/18/24 03/18/24 lisinopril 20 mg tablet 20 mg PO DAILY 03/18/24 03/18/24 simvastatin 20 mg tablet 20 mg PO DAILY 03/18/24 03/18/24 Allergies Allergy/AdvReac Type Severity Reaction Status Date / Time No Known Drug Allergies Allergy Verified 03/18/24 11:02 Review of Systems ROS Status of ROS 10 or more systems reviewed and unremarkable except as noted in history and below PFSH PFSH Social History Little interest or pleasure in doing things: not at all Feeling down, depressed, or hopeless: not at all Exam Narrative Exam Narrative: Nurses notes and vital signs reviewed and patient is not hypoxic. General: Well-appearing and in no apparent distress. Skin: Warm, dry, no pallor noted. No rash. Head: Normocephalic, atraumatic. Neck: Supple, non-tender. Eye: Pupils are equal, round and EOMI. No scleral icterus. Ears, Nose, Mouth, and Throat: TM are clear, no nasal mucosal hypertrophy. Oral mucosa is moist, no posterior oropharynx erythema, uvula is mid-line Cardiovascular: Regular Rate and Rhythm without murmur, gallop or rub. Respiratory: No accessory muscle use or respiratory distress. Lungs are clear to auscultation, no wheezing, rales or rhonchi Chest Wall: no tenderness Back: No midline thoracic or lumbar vertebral tenderness. No CVA tenderness Musculoskeletal: normal ROM, no calf or popliteal tenderness, no lower extremity edema/swelling GI: Abdomen is soft, non-distended. Normal bowel sounds. No masses appreciated. No tenderness to palpation. No rebound, guarding, or rigidity noted. Neurological: A&O x4. No cranial nerve dysfunction observed. No truncal ataxia. Moves all extremities. Sensation intact. Psychiatric: Cooperative and interactive. Normal mood and affect. NIH score is 0 upon arrival Constitutional Vital Signs, click to edit/add: Last Vital Signs Temp 98.1 F 03/18/24 10:56 Pulse 76 03/18/24 13:38 Resp 20 03/18/24 13:38 BP 148/80 H 03/18/24 13:38 Pulse Ox 98 03/18/24 13:38 O2 Del Method Room Air 03/18/24 13:38 Course Vital Signs Vital signs: Vital Signs Temperature 98.1 F 03/18/24 10:56 Pulse Rate 74 03/18/24 10:56 Respiratory Rate 20 03/18/24 10:56 Blood Pressure 152/84 H 03/18/24 10:56 Pulse Oximetry 98 03/18/24 10:56 Temperature 98.1 F 03/18/24 10:56 Pulse Rate 76 03/18/24 13:38 Respiratory Rate 20 03/18/24 13:38 Blood Pressure 148/80 H 03/18/24 13:38 Pulse Oximetry 98 03/18/24 13:38 Oxygen Delivery Method Room Air 03/18/24 13:38 MDM - Eye Problem MDM Narrative Medical decision making narrative: The patient EKG showing sinus rhythm with a heart rate of [address] elevation or depression CBC and chemistry showed no acute significant pathology and the CT of the head showed no acute pathology as well The patient case was discussed with Tele neurology service Dr Adams and the CT angio head and neck was obtained due to the patient having meningioma in the sella turnica the patient case was discussed also with and he does not think that her symptoms are related to this and he can follow-up with her as outpatient after she could discharge from being worked up for TIA The patient case was discussed with Dr. Rai and he agreed to admit the patient for further workup Lab Data Labs: Lab Results 03/18/24 Range/Units 11:34 WBC 8.6 (4.0-11.0) 10^3/uL RBC 4.10 L (4.20-5.40) 10^6/uL Hgb 12.3 (12.0-16.0) g/dL Hct 39.1 (36.0-48.0) % MCV 95.4 (81.0-99.0) fL MCH 30.0 (26.7-34.0) pg MCHC 31.5 (29.9-35.2) g/dL RDW 14.3 (11.0-15.0) % Plt Count 292 (150-450) 10^3/uL MPV 9.2 L (9.5-13.5) fL Neut % (Auto) 64.4 (43.0-75.0) % Lymph % (Auto) 22.4 (20.5-60.0) % [place] % (Auto) 8.5 (1.7-12.0) % Eos % (Auto) 3.3 (0.9-7.0) % Baso % (Auto) 0.6 (0.2-2.0) % Neut # (Auto) 5.6 (1.4-6.5) 10^3/uL Lymph # (Auto) 1.9 (1.2-3.8) 10^3/uL [place] # (Auto) 0.7 (0.3-0.8) 10^3/uL Eos # (Auto) 0.3 (0.0-0.7) 10^3/uL Baso # (Auto) 0.1 (0.0-0.1) 10^3/uL Abs Immat Gran (auto) 0.07 H (0.00-0.03) 10^3/uL Imm/Tot Granulo (auto) 0.8 H (0.0-0.5) % PT 10.2 (9.0-11.6) sec INR 0.96 Sodium 143 (136-145) mmol/L Potassium 3.8 (3.5-5.1) mmol/L Chloride 105 (98-107) mmol/L Carbon Dioxide 30.5 (21.0-32.0) mmol/L Anion Gap 11.3 BUN 16.0 (7.0-18.0) mg/dL Creatinine 0.97 (0.55-1.02) mg/dL Est GFR ( Amer) >60 (>=60 mL/min/1.73m^2) Est GFR (Non-Af Amer) 56 L (>=60 mL/min/1.73m^2) BUN/Creatinine Ratio 16.5 Glucose 84 (74-106) mg/dL Calcium 9.1 (8.5-10.1) mg/dL Total Bilirubin 0.3 (0.2-1.0) mg/dL AST 14 L (15-37) U/L ALT 20 (14-59) U/L Alkaline Phosphatase 135 H (46-116) U/L Total Protein 7.3 (6.4-8.2) g/dL Albumin 3.1 L (3.4-5.0) g/dL Globulin 4.2 g/dL Albumin/Globulin Ratio 0.7 Discharge Plan Discharge Chief Complaint: Eye Problems Clinical Impression: Brain TIA, Vision changes Patient Disposition: Admitted as Observation Time of Disposition Decision: 13:46
--- NOTE | 2024-03-18 16:38 | P.HP_ITS ---
HPI H&P: HPI History of Present Illness Chief complaint: VISION ISSUE, tia, abnormal vision Narrative: Had an episode that lasted about 30 minutes of warm tunnel vision both eyes, she felt it was buddy-shaped and could even kind of see it with her eyes closed, once resolved she just called the office and we recommended evaluation in the emergency room. Evaluation emergency room unremarkable other than TIA, case discussed with telestroke, recommendations for observation overnight with high risk of recurrence within the first 24 hours I saw patient up in the medical surgical floor, she was resting comfortably in bed without any complaints Opioid HPI Opioid Management Most Recent Pain and Opioid Data: Last Pain Scale 0 03/18/24 11:11 03/18/24 Last Pain Assessment 03/18/24 16:00 Last ORT Total Score 0 03/18/24 15:03 03/18/24 Last ORT Risk Category Low Risk 03/18/24 15:03 03/18/24 Review of Systems ROS Status of ROS 10 or more systems reviewed and unremark able except as noted in history and below PFSH PFSH Medical History (Updated 03/18/24 @ 15:20 by Amelia Mcgraw RN) History of breast cancer ?Z85.3 - Personal history of malignant neoplasm of breast (ICD-10) Hyperlipidemia ?E78.5 - Hyperlipidemia, unspecified (ICD-10) Hypertension ?I10 - Essential (primary) hypertension (ICD-10) Surgical History (Updated 03/18/24 @ 15:07 by Amelia Mcgraw RN) History of tonsillectomy ?Z90.89 - Acquired absence of other organs (ICD-10) History of hysterectomy ?Z90.710 - Acquired absence of both cervix and uterus (ICD-10) History of hernia repair ?Z98.890 - Other specified postprocedural states (ICD-10) ?Z87.19 - Personal history of other diseases of the digestive system (ICD-10) History of shoulder surgery ?Z98.890 - Other specified postprocedural states (ICD-10) Hx of cholecystectomy ?Z90.49 - Acquired absence of other specified parts of digestive tract (ICD- 10) Family History (Updated 03/18/24 @ 15:07 by Amelia Mcgraw RN) Mother Family history of stroke Family history of cancer Family history of COPD (chronic obstructive pulmonary disease) Family history of diabetes mellitus Family history of hypertension Social History (Updated 03/18/24 @ 15:08 by Amelia Mcgraw RN) Within the past year, how often did you have a drink containing alcohol: never Score interpretation: A score less than 3 is consistent with normal alcohol consumption. Smoking status: Former smoker Non-prescribed substance use: denies use Highest level of school completed/degree received: high school graduate Little interest or pleasure in doing things: not at all Feeling down, depressed, or hopeless: not at all Meds Home Medications and Allergies Home Medications ?Medication ?Instructions ?Recorded ?Confirmed ?Type diltiazem HCl 120 mg tablet 120 mg PO BID 03/18/24 03/18/24 History lisinopril 20 mg tablet 20 mg PO DAILY 03/18/24 03/18/24 History simvastatin 20 mg tablet 20 mg PO DAILY 03/18/24 03/18/24 History Allergies Allergy/AdvReac Type Severity Reaction Status Date / Time No Known Drug Allergies Allergy Verified 03/18/24 11:02 Exam Constitutional Vital Signs, click to edit/add: Last Vital Signs Temp 97.7 F 03/18/24 15:03 Pulse 63 03/18/24 15:54 Resp 18 03/18/24 15:03 BP 156/74 H 03/18/24 15:03 Pulse Ox 97 03/18/24 15:03 O2 Del Method Room Air 03/18/24 15:03 Documenting provider has reviewed patient's vital signs: yes Common normals: no apparent distress HENIL Common normals: normocephalic and head/scalp atraumatic Eye Common normals: EOMs intact bilaterally, conjunctivae normal and no scleral icterus Chest Common normals: inspection of chest normal and palpation of chest normal Respiratory Common normals: normal respiratory effort, no retractions and no use of accessory muscles Cardio Common normals: regular rate, regular rhythm and no murmurs GI Common normals: Normal to inspection, nondistended, normoactive bowel sounds present and soft to palpation Common normals: no CVA tenderness Neuro Common normals: oriented x3, CN's II-XII intact bilaterally, moves all extremities and no focal motor deficits Results Labs Labs: Short CBC 03/18/24 Range/Units 11:34 WBC 8.6 (4.0-11.0) 10^3/uL Hgb 12.3 (12.0-16.0) g/dL Hct 39.1 (36.0-48.0) % Plt Count 292 (150-450) 10^3/uL BMP 03/18/24 11:34 Sodium 143 Potassium 3.8 Chloride 105 Carbon Dioxide 30.5 BUN 16.0 Creatinine 0.97 Glucose 84 Calcium 9.1 Liver Function 03/18/24 Range/Units 11:34 Total Bilirubin 0.3 (0.2-1.0) mg/dL AST 14 L (15-37) U/L ALT 20 (14-59) U/L Alkaline Phosphatase 135 H (46-116) U/L Albumin 3.1 L (3.4-5.0) g/dL Assessment and Plan Assessment and Plan (1) Vision changes: (2) Brain TIA: (3) History of breast cancer: (4) Hyperlipidemia: (5) Hypertension: Plan Admission findings: TIA with unremarkable workup. Episode lasted about 30 minutes recommendation was to observe patient overnight as high risk of recurrence in the first 24 hours TIA-start patient on Plavix she does take aspirin intermittently already. Continue with workup with echocardiogram, any further workup would be done as an outpatient Hypertension-continue with home medications Hypercholesterolemia continue with home medications Mass in the sella turcica-MRI as an outpatient Admission status: Patient recommended for observation overnight, based on telestroke recommendations, start patient off as observation status if symptoms recur will change patient to inpatient status is medically necessary treatment will span 2 midnights
[2024-03-18] MEDS: CLOPIDOGREL BISULFATE 75 MG TABLET PO (16:47)
[2024-03-18] MEDS: DILTIAZEM HCL 120 MG CAP.ER.24H PO (20:02)
[2024-03-18] MEDS: ATORVASTATIN CALCIUM 10 MG TABLET PO (20:02)
[2024-03-19] VITALS (10 sets, daily range): BP systolic 143–148; BP diastolic 82–88; PULSE 62–82; TEMP 36.6; O2SAT 95
--- NOTE | 2024-03-19 08:10 | P.DS_ITS ---
DS: Providers Provider Date of admission: 03/18/24 14:50 Primary care physician: Paolo Rai MD Consults: 03/18/24 11:46 Consult to Telestroke Routine Reason for consultation: new neurological symptoms 03/18/24 16:31 Occupational Therapy Eval and Treat Routine Reason for consultation: Only if needed for Rehab Has provider been notified: No Physical Therapy Eval and Treat Routine Reason for consultation: Eval and Treat Has provider been notified: No DS: Diagnosis Discharge Diagnosis (1) Vision changes: (2) Brain TIA: (3) History of breast cancer: (4) Hyperlipidemia: (5) Hypertension: Plan Admission findings: TIA with unremarkable workup. Episode lasted about 30 minutes recommendation was to observe patient overnight as high risk of recurrence in the first 24 hours TIA-resolved at the time of discharge Hypertension-elevated at the time of discharge, medications adjusted Hypercholesterolemia continue with home medications Mass in the sella turcica-MRI as an outpatient Admission status: Patient recommended for observation overnight, based on telestroke recommendations, start patient off as observation status if symptoms recur will change patient to inpatient status is medically necessary treatment will span 2 midnights ? DS: Summary Hospital Course Hospital Course: Patient had a 30-minute episode of vision change, both eyes although it did seem like it was the right sided predominant. Patient not had any other symptoms similar to that before she had no headache afterwards that would be consistent with a ocular migraine, patient presented to the emergency room for workup, workup found no significant narrowings, echocardiogram is pending, patient has had no further episodes, telemetry is unremarkable, will send patient home with a Holter get the echocardiogram completed today, see me in the office next week. Medications see list. Time Spent with Patient Time attestation: Total time spent providing and/or coordinating discharge services: Exam Constitutional Vital Signs, click to edit/add: Last Vital Signs Temp 97.8 F 03/19/24 07:46 Pulse 65 03/19/24 07:53 Resp 18 03/19/24 07:46 BP 148/88 H 03/19/24 07:46 Pulse Ox 95 03/19/24 07:46 O2 Del Method Room Air 03/19/24 07:46 Documenting provider has reviewed patient's vital signs: yes Common normals: no apparent distress HENMT Common normals: normocephalic and head/scalp atraumatic Eye Common normals: EOMs intact bilaterally, conjunctivae normal and no scleral icterus Chest Common normals: inspection of chest normal and palpation of chest normal Respiratory Common normals: normal respiratory effort, no retractions and no use of accessory muscles Cardio Common normals: regular rate, regular rhythm and no murmurs GI Common normals: Normal to inspection, nondistended, normoactive bowel sounds present and soft to palpation Common normals: no CVA tenderness Neuro Common normals: oriented x3, CN's II-XII intact bilaterally, moves all extremities and no focal motor deficits DS: Data Data Completed and Pending Labs on day of discharge: Labs from last 24 hours 03/18/24 11:34 WBC 8.6 RBC 4.10 L Hgb 12.3 Hct 39.1 MCV 95.4 MCH 30.0 MCHC 31.5 RDW 14.3 Plt Count 292 MPV 9.2 L Neut % (Auto) 64.4 Lymph % (Auto) 22.4 [place] % (Auto) 8.5 Eos % (Auto) 3.3 Baso % (Auto) 0.6 Neut # (Auto) 5.6 Lymph # (Auto) 1.9 [place] # (Auto) 0.7 Eos # (Auto) 0.3 Baso # (Auto) 0.1 Abs Immat Gran (auto) 0.07 H Imm/Tot Granulo (auto) 0.8 H PT 10.2 INR 0.96 Sodium 143 Potassium 3.8 Chloride 105 Carbon Dioxide 30.5 Anion Gap 11.3 BUN 16.0 Creatinine 0.97 Est GFR ( Amer) >60 Est GFR (Non-Af Amer) 56 L BUN/Creatinine Ratio 16.5 Glucose 84 Calcium 9.1 Total Bilirubin 0.3 AST 14 L ALT 20 Alkaline Phosphatase 135 H Total Protein 7.3 Albumin 3.1 L Globulin 4.2 Albumin/Globulin Ratio 0.7 Discharge Plan Discharge Disposition: Home Health Service Discharge Medications: New clopidogrel 75 mg Tablet 75 mg PO QD Qty: 30 11RF lisinopril 40 mg tablet 40 mg PO DAILY Qty: 30 11RF Continued diltiazem HCl 120 mg tablet 120 mg PO BID Discontinued lisinopril 20 mg tablet 20 mg PO DAILY No Action simvastatin 20 mg tablet 20 mg PO DAILY Print Language: Macedonian Forms: Portal Instructions
[2024-03-19] MEDS: DILTIAZEM HCL 120 MG CAP.ER.24H PO (08:39)
[2024-03-19] MEDS: CLOPIDOGREL BISULFATE 75 MG TABLET PO (08:39)
[2024-03-19] MEDS: LISINOPRIL 20 MG TABLET 40 MG PO (08:39)
--- NOTE | 2024-03-19 08:42 | SWNOTE1 ---
SW met with pt to discuss dc needs. Pt's in room as well. Pt came in for precautions from having the vision issues. Pt is feeling well. Pt is independent and has no anticipated discharge needs at this time. SW to follow as needed.
--- NOTE | 2024-03-19 08:43 | SWNOTE1 ---
Medicare Outpatient Observation Notice reviewed and discussed with patient. Pt. verbalized understanding and signed the form. Original given to patient and copy placed in patient?s chart.
--- NOTE | 2024-03-19 16:34 | CA_ITS ---
Patient Name: JOSS WASHINGTON MR#: [id number] : 1950 Exam Date: 03/19/2024 Ordering Doctor: DR Paolo Rai . ECHOCARDIOGRAM REPORT PROCEDURE: CA ECHO DOPPLER COMPLETE INDICATIONS: Dyspnea, vision issue, hypertension COMPARISON: None. DESCRIPTION: COMPLETE ECHOCARDIOGRAM Real-time transthoracic echocardiography with 2D, M-mode, spectral and color flow Doppler performed. QUALITY: Technical quality was good. LEFT VENTRICLE: Normal chamber size. Thickened septal wall. LV EF: Global left ventricular systolic function is normal; visually estimated ejection fraction is 60 to 65%. No obvious wall motion abnormalities. DIASTOLIC: Normal diastolic function. ATRIAL SEPTUM: Inadequately seen. LEFT ATRIUM: Normal chamber size. RIGHT ATRIUM: Normal chamber size. RIGHT VENTRICLE: Normal chamber size. TRICUSPID VALVE: Normal mobility and thickness. No stenosis with trivial regurgitation. Doppler studies reveal mildly (35-45) elevated right sided pressures. RVSP 35 mmHg MITRAL VALVE: Normal mobility and thickness. No evidence of mitral valve stenosis. There is no mitral annular calcification. Trivial mitral regurgitation. AORTIC VALVE: Normal trileaflet appearance. No visible sclerosis. Normal leaflet mobility. No evidence of aortic valve stenosis. No aortic regurgitation. AORTIC ROOT: Normal diameter and appearance. PULMONIC VALVE: Not well visualized. No regurgitation. PERICARDIUM: Anterior free space; trivial effusion versus fat pad IVC: Not well visualized. CONCLUSION: 1. Global left ventricular systolic function is normal; visually estimated ejection fraction is 60 to 65% 2. The right ventricle appears normal in size and systolic function 3. Normal diastolic function 4. The left atrium is normal in size 5. Mildly elevated right ventricular systolic pressure; RVSP 35 mmHg 6. No significant valvular abnormalities 7. Anterior free space; trivial effusion versus fat pad Adult Echocardiography Procedure Report Left Ventricle LVEDD (3.7 - 5.6 cm): 4.69 cm LVESD (2.2 - 4.0 cm): 3.36 cm LVIVS thickness (0.6 - 1.2 cm): 1.23 cm LVPW thickness (0.5 - 1.0 cm): 0.79 cm e': 0.08 m/s E - e': 9.77 LVOT Max Gradient: 2.77 mm[Hg] LVOT Area (cm2): 0.83 m/s Peak Velocity (LVOT): 0.83 m/s LVOT Diameter 2.02 cm Left Atrium LA Volume Index (2D A2C): 31.63 ml/m2 Left Atrium Systolic Dimension: 3.17 cm Mitral Valve MV E to A Ratio: 1.49 Mitral Valve A-Wave Peak Velocity: 0.54 m/s Mitral Valve E-Wave Peak Velocity: 0.81 m/s Right Ventricle Aorta AO Root Diam: 3.06 cm Aortic Valve AoV Area ([place]): 1.77 cm2, 1.77 cm2 Peak Velocity(Antegrade Flow): 1.51 m/s Peak Gradient(Antegrade Flow): 9.16 mm[Hg] Tricuspid Valve Peak Velocity (Regurgitant Flow): 2.82 m/s Pulmonic Valve Peak Velocity: 0.79 m/s Peak Gradient: 2.48 mm[Hg] Right Atrium Right Atrium Systolic Pressure: 51.34 ml, 51.34 ml Dictated by: Chad Treadwell M.D. on 03/19/2024 at 14:17 Approved by: Chad Treadwell M.D. on 03/19/2024 at 14:19
--- NOTE | 2024-03-25 13:02 | CM.DCFOLLOWU ---
Person spoke with:patient How are you feeling?well How is your pain?none Did you understand your discharge instructions?yes Do you have any questions about your discharge instructions?no Were you given any prescriptions at discharge? yes Were you able to get your prescriptions filled?yes Do you understand how to take your medications as ordered?yes Do you have any questions about your follow up appointment and do you plan to keep your follow up appointment?no questions, follow up tomorrow with PCP Is there anything else that you would like to discuss?no Questions/Comments/Concerns/Other:none
== END 2024-03-19 12:58 | disposition home or self-care (01) ==
LOC: ER 13:46 → MS 14:56
PROVIDERS: Admitting Provider Family Medicine; Emergency Provider Emergency Medicine; PCP Family Medicine; Visit Provider Family Medicine
DX: G45.9 Transient cerebral ischemic attack, unspecified (principal); I10 Essential (primary) hypertension; G93.9 Disorder of brain, unspecified; E78.00 Pure hypercholesterolemia, unspecified; Z79.899 Other long term (current) drug therapy; Z85.3 Personal history of malignant neoplasm of breast
CPT/HCPCS: 36415; 70450; 70496; 70498; 80053; 85025; 85610; 93005; 93246; 93306; 94761; 99285; G0378; Q9967

== ENCOUNTER 2024-04-13 09:00 | Outpatient (OUT) | payer MEDICARE, OTHER, SELFPAY ==
--- OUTSIDE RECORDS SUMMARY | 2024-04-13 09:13 | XMS_ITS | CCD ---
Author Organization [facility] Care Team Providers Care Consumer Attorney Name Role Phone KATHERINE DOWNS Attending Unavailable [...] CRONIN, KHALID R Referring Unavailable LISA WILLAMS ([facility]) Attending Unavailabl e CRONIN, KHALID R Referring [...] LIBIA GIBBS Date: 2022-03-17 13:31 Normal [facility] MG MAMM ABHAY DIAG W CADon MG MAMM ABHAY DIAG W CAD Patient: JOSS WASHINGTON Exam Date: 02/08/2022 : 1950 Gender:F Ordering : DR LAWRENCE RAI . Admission #: [id number] Family : Order #: [id number] CLICK HERE TO VIEW EXAM RADIOLOGY REPORT [...] brain cancer at age 69. LOCATION: [facility] BREAST COMPOSITION: Scattered areas fibroglandular [...] Lima M.D. on 02/08/2022 at 08:46 Normal [facility] T4, T3U, FTI LABCORPon 12-01 Free Thyroxine Index 1.7 Normal 1.2-4.9 [facility] Comment on above: Performed By: #### T HYLC #### [facility] [address] [place] [address] Dr. Sheldon Cordero T3 Uptake 27 % Normal 24-39 [facility] Comment on above: Performed By: #### T HYLC #### [facility] [address] [place] [address] Dr. Sheldon Cordero T4 [Mass/Vol] 6.4 ug/dL Normal 4.5-12.0 [facility] Comment on above: Performed By: #### T HYLC #### [facility] [address] [place] [address] Dr. Sheldon Cordero CBC AUTO DIFFon 11-30-2021 BASO # 0.1 103/ul Normal 0.0-0.1 [facility] Comment on above: Performed By: #### C BC #### [facility] [address] [place] [address] Dr. Sheldon Cordero Basophils/100 WBC (Bld) 0.8 % Normal 0.2-2.0 [facility] Comment on above: Performed By: #### C BC #### [facility] [address] [place] [address] Dr. Sheldon Cordero EO # 0.3 103/ul Normal 0.0-0.7 [facility] Comment on above: Performed By: #### C BC #### [facility] [address] [place] [address] Dr. Sheldon Cordero Eosinophils/100 WBC (Bld) 3.8 % Normal 0.9-7.0 [facility] Comment on above: Performed By: #### C BC #### [facility] [address] [place] [address] Dr. Sheldon Cordero Erythrocyte distribution width (RBC) [Ratio] 14.6 % Normal 11.0-15.0 [facility] Comment on above: Performed By: #### C BC #### [facility] [address] [place] [address] Dr. Sheldon Cordero Hematocrit (Bld) [Volume fraction] 39.3 % Normal 36.0-48.0 [facility] Comment on above: Performed By: #### C BC #### [facility] [address] [place] [address] Dr. Sheldon Cordero Hemoglobin (Bld) [Mass/Vol] 12.4 g/dL Normal 12.0-16.0 [facility] Comment on above: Performed By: #### C BC #### [facility] [address] [place] [address] Dr. Sheldon Cordero IG # 0.08 10e3/ul Critically high 0.00-0.03 [facility] Comment on above: Performed By: #### C BC #### [facility] [address] [place] [address] Dr. Sheldon Cordero IG % 1.1 % Critically high 0.0-0.5 [facility] Comment on above: Performed By: #### C BC #### [facility] [address] [place] [address] Dr. Sheldon Cordero LYMPH # 1.8 103/ul Normal 1.2-3.8 [facility] Comment on above: Performed By: #### C BC #### [facility] [address] [place] [address] Dr. Sheldon Cordero Lymphocytes/100 WBC (Bld) 25.1 % Normal 20.5-60.0 [facility] Comment on above: Performed By: #### C BC #### [facility] [address] [place] [address] Dr. Sheldon Cordero MANUAL DIFF REQ NO Normal [facility] Comment on above: Performed By: #### C BC #### [facility] [address] [place] [address] Dr. Shelodn Cordero MCH (RBC) [Entitic mass] 29.6 pg Normal 26.7-34.0 [facility] Comment on above: Performed By: #### C BC #### [facility] [address] [address] [address] Sheldon Cordero MCHC (RBC) [Mass/Vol] 31.6 g/dL Normal 29.9-35.2 [facility] Comment on above: Performed By: #### C BC #### [facility] [address] [address] [address] Sheldon Cordero MCV (RBC) [Entitic vol] 93.8 fL Normal 81.0-99.0 [facility] Comment on above: Performed By: #### C BC #### [facility] [address] [address] [address] Sheldon Cordero MONO # 0.4 103/ul Normal 0.3-0.8 [facility] Comment on above: Performed By: #### C BC #### [facility] [address] [address] [address] Sheldon Cordero Monocytes/100 WBC (Bld) 5.8 % Normal 1.7-12.0 [facility] Comment on above: Performed By: #### C BC #### [facility] [address] [address] [address] Sheldon Cordero NEUT # 4.6 103/ul Normal 1.4-6.5 [facility] Comment on above: Performed By: #### C BC #### [facility] [address] [address] [address] Sheldon Cordero Neutrophils/100 WBC (Bld) 63.4 % Normal 43.0-75.0 [facility] Comment on above: Performed By: #### C BC #### [facility] [address] [address] [address] Sheldon Cordero Platelet mean volume (Bld) [Entitic vol] 8.9 fL Critically low 9.5-13.5 [facility] Comment on above: Performed By: #### C BC #### [facility] [address] [address] [address] Sheldon Cordero PLT 277 103/ul Normal 150-450 [facility] Comment on above: Performed By: #### C BC #### [facility] [address] [address] [address] Sheldon Cordero RBC 4.19 106/ul Critically low 4.20-5.40 [facility] Comment on above: Performed By: #### C BC #### [facility] [address] [place] [address] Dr. Sheldon Cordero WBC 7.2 103/ul Normal 4.0-11.0 [facility] Comment on above: Performed By: #### C BC #### [facility] [address] [place] [address] Dr. Sheldon Cordero GLYCOHEMOGLOBIN A1Con 2021 ADA RECOMMENDATION SEE BELOW Normal [facility] Comment on above: Result Comment: ADA RECOMMENDED LIMIT 4.0 - 6.0 ADA THERAPEUTIC TARGET < 7.0 ACTION SUGGESTED > 7.0 Performed By: #### A 1C #### [facility] [address] [place] [address] Dr. Sheldon Cordero Glucose [Mass/Vol] 128 mg/dL Normal [facility] Comment on above: Performed By: #### A 1C #### [facility] [address] [place] [address] Dr. Sheldon Cordero HbA1c (Bld) [Mass fraction] 6.1 % Normal 4.5-6.2 [facility] Comment on above: Performed By: #### A 1C #### [facility] [address] [place] [address] Dr. Sheldon Cordero IRONon 11-30-2021 Iron [Mass/Vol] 58.0 ug/dL Normal 50.0-170.0 [facility] Comment on above: Performed By: #### I GERMAN #### [facility] [address] [place] [address] Dr. Sheldon Cordero LIPID PROFILEon 11-30-2021 CHOL-HDL RATIO NORM SEE BELOW Normal [facility] Comment on above: Result Comment: 3.3 - 4.4 LOW RISK 4.4 - 7.1 AVERAGE RISK 7.1 - 11.0 MODERATE RISK >11.0 HIGH RISK Performed By: #### L IPID, TSH, CMP #### [facility] [address] [address] [address] Sheldon Cordero Cholesterol [Mass/Vol] 251 mg/dL Critically high <=200 [facility] Comment on above: Performed By: #### L IPID, TSH, CMP #### [facility] [address] [address] [address] Sheldon Cordero Cholesterol in HDL [Mass/Vol] 70 mg/dL Critically high 40-60 [facility] Comment on above: Performed By: #### L IPID, TSH, CMP #### [facility] [address] [address] [address] Sheldon Cordero Cholesterol in LDL [Mass/Vol] 161.4 mg/dL Normal [facility] Comment on above: Performed By: #### L IPID, TSH, CMP #### [facility] [address] [address] [address] Sheldon Cordero Cholesterol.total/Ch olesterol in HDL [Mass ratio] 3.6 {ratio} Normal [facility] Comment on above: Performed By: #### L IPID, TSH, CMP #### [facility] [address] [address] [address] Sheldon Cordero HDL NORMAL > or = 60 mg/dl - LO W CARDIOVASCULAR RISK <40 mg/dl - HIGH CARDIOVASCULAR RISK Normal [facility] Comment on above: Performed By: #### L IPID, TSH, CMP #### [facility] [address] [address] [address] Sheldon Cordero LDL CALC NORMAL SEE BELOW Normal [facility] Comment on above: Result Comment: <100 mg/dl OPTIMAL 100 - 129 mg/dl NEAR OR ABOVE OPTIMAL 130 - 159 mg/dl BORDERLINE HIGH 160 - 189 mg/dl HIGH >190 mg/dl VERY HIGH Performed By: #### L IPID, TSH, CMP #### [facility] [address] [address] [address] Sheldon Cordero Triglyceride [Mass/Vol] 98 mg/dL Normal <=150 [facility] Comment on above: Performed By: #### L IPID, TSH, CMP #### [facility] [address] [address] [address] Sheldon Cordero VLDL CALC 19.6 mg/dL Normal [facility] Comment on above: Performed By: #### L IPID, TSH, CMP #### [facility] [address] [address] [address] Sheldon Cordero PROF 14(COMP METB)on 022 Albumin [Mass/Vol] 3.4 g/dL Normal 3.4-5.0 [facility] Comment on above: Performed By: #### L IPID, TSH, CMP #### [facility] [address] [address] [address] Sheldon Cordero Albumin/Globulin [Mass ratio] 0.9 {ratio} Normal [facility] Comment on above: Performed By: #### L IPID, TSH, CMP #### [facility] [address] [address] [address] Sheldon Cordero ALP [Catalytic activity/Vol] 107 U/L Normal 46-116 [facility] Comment on above: Performed By: #### L IPID, TSH, CMP #### [facility] [address] [address] [address] Sheldon Cordero ALT [Catalytic activity/Vol] 17 U/L Normal 14-59 [facility] Comment on above: Performed By: #### L IPID, TSH, CMP #### [facility] [address] [address] [address] Sheldon Cordero Anion gap [Moles/Vol] 10.9 mmol/L Normal [facility] Comment on above: Performed By: #### L IPID, TSH, CMP #### [facility] [address] [address] [address] Sheldon Cordero AST [Catalytic activity/Vol] 11 U/L Critically low 15-37 [facility] Comment on above: Performed By: #### L IPID, TSH, CMP #### [facility] [address] [address] [address] Sheldon Cordero Bilirubin [Mass/Vol] 0.3 mg/dL Normal 0.2-1.0 [facility] Comment on above: Performed By: #### L IPID, TSH, CMP #### [facility] [address] [address] [address] Sheldon Cordero Calcium [Mass/Vol] 9.1 mg/dL Normal 8.5-10.1 [facility] Comment on above: Performed By: #### L IPID, TSH, CMP #### [facility] [address] [place] [address] Dr. Sheldon Cordero Chloride [Moles/Vol] 106 mmol/L Normal 98-107 [facility] Comment on above: Performed By: #### L IPID, TSH, CMP #### [facility] [address] [place] [address] Dr. Sheldon Cordero CO2 [Moles/Vol] 30.6 mmol/L Normal 21.0-32.0 [facility] Comment on above: Performed By: #### L IPID, TSH, CMP #### [facility] [address] [place] [address] Dr. Sheldon Cordero Creatinine [Mass/Vol] 0.93 mg/dL Normal 0.55-1.02 [facility] Comment on above: Performed By: #### L IPID, TSH, CMP #### [facility] [address] [place] [address] Dr. Sheldon Cordero EGFR-AF ZAMBIAN >60 Normal >=60 [facility] Comment on above: Performed By: #### L IPID, TSH, CMP #### [facility] [address] [place] [address] Dr. Sheldon Cordero EGFR-NON AF ZAMBIAN =60 Normal >=60 [facility] Comment on above: Performed By: #### L IPID, TSH, CMP #### [facility] [address] [place] [address] Dr. Sheldon Cordero Globulin (S) [Mass/Vol] 4.0 g/dL Normal [facility] Comment on above: Performed By: #### L IPID, TSH, CMP #### [facility] [address] [place] [address] Dr. Sheldon Cordero Glucose [Mass/Vol] 101 mg/dL Normal 74-106 [facility] Comment on above: Performed By: #### L IPID, TSH, CMP #### [facility] [address] [place] [address] Dr. Sheldon Cordero Potassium [Moles/Vol] 4.5 mmol/L Normal 3.5-5.1 [facility] Comment on above: Performed By: #### L IPID, TSH, CMP #### [facility] [address] [address] [address] Sheldon Cordero Protein [Mass/Vol] 7.4 g/dL Normal 6.4-8.2 [facility] Comment on above: Performed By: #### L IPID, TSH, CMP #### [facility] [address] [place] [address] Dr. Sheldon Cordero Sodium [Moles/Vol] 143 mmol/L Normal 136-145 [facility] Comment on above: Performed By: #### L IPID, TSH, CMP #### [facility] [address] [place] [address] Dr. Sheldon Cordero Urea nitrogen [Mass/Vol] 18.0 mg/dL Normal 7.0-18.0 [facility] Comment on above: Performed By: #### L IPID, TSH, CMP #### [facility] [address] [place] [address] Dr. Sheldon Cordero Urea nitrogen/Creatinine [Mass ratio] 19.4 mg/mg Normal [facility] Comment on above: Performed By: #### L IPID, TSH, CMP #### [facility] [address] [place] [address] Dr. Sheldon Cordero TSHon 11-30-2021 TSH 2.774 uIU/mL Normal 0.358-3.740 [facility] Comment on above: Performed By: #### L IPID, TSH, CMP #### [facility] [address] [place] [address] Dr. Sheldon Cordero Lactic Acidon 11-02-2018 Lactate [Mass/Vol] 7.5 mg/dL Normal 4.5-19.8 [facility] Comment on above: Performed By: #### 2 [id number] #### [facility] [address] [address] CNOVon 06-11-2018 CNOV Office Visit (RADTSA ) JOSS WASHINGTON ([id number]) 1950 F Date Time Provider Department 06/11/18 [...] pathologic stage 0 (Tis Nx ?M0), ER-positive, MA-positive, s/p partial mastectomy ? ? INTERVAL HISTORY: [...] FACRO ? cc: Lawrence Rai MD [address] [place] [phone] ? Katherine Downs MD [facility] [address] [place] [address] ? Dr. Berman ? This note was dictated with Dragon Naturally Speaking and may contain some grammatical errors due to limitations of the software. Dexter De León RN, was present in the examination room throughout the encounter. 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 Author Type: Physician Type: Progress Notes Filed: 06/11/2018 2:48 PM Note Text: Radiation Oncology - Follow Up Note PATIENT NAME: Joss Washington PATIENT DIAGNOSIS: ?DCIS of the Right breast, UIQ, pathologic stage 0 (Tis Nx ?M0), ER-positive, MA-positive, s/p partial mastectomy ? ? INTERVAL HISTORY: [...] FACRO ? cc: Lawrence Rai MD [address] [place] [phone] ? Katherine Downs MD [facility] [address] [place] [address] ? Dr. Berman ? This note was dictated with Dragon Naturally Speaking and may contain some grammatical errors due to limitations of the software. Dexter De León RN, was present in the examination room throughout the encounter. Normal [facility] CNOVon 02-12-2018 CNOV Office Visit (RADTSA ) JOSS WASHINGTON ([id number]) 1950 F Date Time Provider Department 02/12/18 [...] pathologic stage 0 (Tis Nx ?M0), ER-positive, MA-positive, s/p partial mastectomy ? ? INTERVAL HISTORY: [...] examination. ? Signed by: Farheen Cronin M.D., [facility] ? cc: Lawrence Rai MD [address] [place] [address] ? Katherine Downs MD [facility] [address] [place] [address] ? Dr. Berman ? This note was dictated with Jazmin Naturally Speaking and may contain some grammatical errors due to limitations of the software. Dexter De León RN, was present in the examination room throughout the encounter. Referring Provider: LAWRENCE RAI [[id number]] Allergies As of Date: 02/12/2018 (No Known [...] by FARHEEN CRONIN MD on 02/12/18 Normal [facility] PROGRESSon 02-12-2018 Protein mass conc HNO ID: [id number] Author: Farheen Cronin Service: (none) Author Type: Physician Type: Progress Notes Filed: 02/12/2018 10:40 AM Note Text: Radiation Oncology - Follow Up Note PATIENT NAME: Joss Washington PATIENT DIAGNOSIS: ?DCIS of the Right breast, UIQ, pathologic stage 0 (Tis Nx ?M0), ER-positive, MA-positive, s/p partial mastectomy ? ? INTERVAL HISTORY: [...] FACRO ? cc: Lawrence Rai MD [address] [place] [id number] ? Katherine Downs MD [facility] [address] [place] [address] ? Dr. Berman ? This note was dictated with Dragon Naturally Speaking and may contain some grammatical errors due to limitations of the software. Dexter De León RN, was present in the examination room throughout the encounter. Normal [facility] PROGRESSon 12-10-2017 Protein mass conc HNO ID: [id number] Author: Lisa (Mattie) Екатерина Service: (none) Author [...] Dr. Downs at this time. Lisa Willams APRN.[employer] Normal [facility] CNOVon 12-04-2017 CNOV Office Visit (RADTSA ) JOSS AWSHINGTON ([id number]) 1950 F Date Time Provider Department 12/04/17 [...] pathologic stage 0 (Tis Nx ?M0), ER-positive, MA-positive, s/p partial mastectomy ? ? INTERVAL HISTORY: [...] M.D., FACRO ? cc: Lawrence Rai MD [facility] [place] [address] ? Katherine Downs MD [facility] [address] [place] [address] ? Dr. Berman ? This note was dictated with Radhaon Naturally Speaking and may contain some grammatical errors due to limitations of the software. Anatoliy Ha MA was present in the examination room throughout the encounter. Referring Provider: FARHEEN CRONIN [[id number]] Allergies As of Date: 12/04/2017 (No Known [...] Status:Closed by FARHEEN CRONIN MD on 12/04/17 [facility] CNOVSPon 12-04-2017 CNOVSP Visit (SP) Office (HEMASA) JOSS WASHINGTON ([id number]) 1950 F Date Time Provider Department 12/04/17 11:00 AM LISA WILLAMS ([employer]) CHRISS During your visit today, we recorded [...] Dr. Downs at this time. Lisa Willams APRN.[employer] Referring Provider: FARHEEN CRONIN [[id number]] Allergies As of Date: 12/04/2017 (No Known [...] by LISA WILLAMS CNP on 12/10/17 Normal [facility] PROGRESSon 12-04-2017 Protein mass conc HNO ID: [id number] Author: Farheen Cronin Service: (none) Author Type: Physician Type: Progress Notes Filed: 12/04/2017 1:55 PM Note Text: Radiation Oncology - Follow Up Note PATIENT NAME: Joss Washington PATIENT DIAGNOSIS: DCIS of the Right breast, UIQ, pathologic stage 0 (Tis Nx ?M0), ER-positive, MA-positive, s/p partial mastectomy ? ? INTERVAL HISTORY: [...] M.D., KAY ? cc: Lawrence Rai MD [facility] [place] [address] ? Katherine Downs MD [facility] [address] [place] [address] ? Dr. Berman ? This note was dictated with Dragon Naturally Speaking and may contain some grammatical errors due to limitations of the software. Anatoliy Ha MA was present in the examination room throughout the encounter. Normal [facility] CNOVon 10-30-2017 CNOV Office Visit (RADTSA ) JOSS WASHINGTON ([id number]) 1950 F Date Time Provider Department 10/30/17 [...] pathologic stage 0 (Tis Nx M0), ER-positive, MA-positive, s/p partial mastectomy ? INTERVAL HISTORY: Mrs. [...] examination. Signed by: Farheen Cronin M.D., [facility] cc: Lawrence Rai MD [address] [place] [id number] ? Katherine Downs MD [facility] [address] [place] [address] ? Dr. Berman ? This note was dictated with Radhaon Naturally Speaking and may contain some grammatical errors due to limitations of the software. Dexter De León RN was present in the examination room throughout the encounter. Referring Provider: FARHEEN CRONIN [[id number]] Allergies As of Date: 10/30/2017 (No Known [...] by FARHEEN CRONIN MD on 10/30/17 Normal [facility] PROGRESSon 10-30-2017 Protein mass conc HNO ID: [id number] Author: Farheen Cronin Service: (none) Author Type: Physician Type: Progress Notes Filed: 10/30/2017 3:16 PM Note Text: Radiation Oncology - Follow Up Note PATIENT NAME: Joss Washington PATIENT DIAGNOSIS: DCIS of the Right breast, UIQ, pathologic stage 0 (Tis Nx M0), ER-positive, MA-positive, s/p partial mastectomy ? INTERVAL HISTORY: Mrs. [...] Cronin M.D., FA[facility] cc: Lawrence Rai MD [facility] [place] [address] ? Katherine Downs MD [facility] [address] [place] [address] ? Dr. Berman ? This note was dictated with Dragon Naturally Speaking and may contain some grammatical errors due to limitations of the software. Dexter De León RN was present in the examination room throughout the encounter. Normal [facility] PROGRESSon 10-16-2017 Protein mass conc HNO ID: [id number] Author: Farheen Cronin Service: (none) Author Type: Physician Type: Progress Notes Filed: 10/17/2017 12:34 AM Note Text: [facility] Radiation Oncology Department RADIATION ONCOLOGY - COMPLETION NOTE PATIENT: JOSS WASHINGTON : 1950 DATES OF TREATMENT: 08/27/2017 to 10/15/2017 DIAGNOSIS: DCIS of the Right breast, UIQ, pathologic stage 0 (Tis Nx M0), ER-positive, MA-positive, s/p partial mastectomy AREA TREATED: Right Breast [...] JULIETTE 10/16/20179:57 AM cc: Dr. Lawrence Downs [facility] CNOVon 10-14-2017 CNOV Office Visit (RADTSA ) JOSS WASHINGTON ([id number]) 1950 F Date Time Provider Department 10/14/17 [...] the Right?breast, UIQ,?pathologic?stage 0 (Tis Nx M0),?ER-positive, MA-positive, s/p?partial mastectomy ? COURSE: definitive AREA TREATED: [...] by FARHEEN CRONIN MD on 10/14/17 Normal [facility] PROGRESSon 10-14-2017 Protein mass conc HNO ID: [id number] Author: Farheen Cronin Service: (none) Author Type: Physician Type: Progress Notes Filed: 10/14/2017 2:16 PM Note Text: Radiation Oncology - On Treatment Review (OTR) Note PATIENT NAME: Joss Washington PATIENT DIAGNOSIS: DCIS?of the Right?breast, UIQ,?pathologic?stage 0 (Tis Nx M0),?ER-positive, MA-positive, s/p?partial mastectomy ? COURSE: definitive AREA TREATED: [...] as planned. ? Farheen Cronin MD? Normal [facility] CNOVon 10-07-2017 CNOV Office Visit (RADTSA ) JOSS WASHINGTON ([id number]) 1950 F Date Time Provider Department 10/07/17 [...] the Right?breast, UIQ,?pathologic?stage 0 (Tis Nx M0),?ER-positive, MA-positive, s/p?partial mastectomy ? COURSE: definitive AREA TREATED: [...] by FARHEEN CRONIN MD on 10/07/17 Normal [facility] PROGRESSon 10-07-2017 Protein mass conc HNO ID: [id number] Author: Farheen Cronin Service: (none) Author Type: Physician Type: Progress Notes Filed: 10/07/2017 11:21 AM Note Text: Radiation Oncology - On Treatment Review (OTR) Note PATIENT NAME: Joss Washington PATIENT DIAGNOSIS: DCIS?of the Right?breast, UIQ,?pathologic?stage 0 (Tis Nx M0),?ER-positive, MA-positive, s/p?partial mastectomy ? COURSE: definitive AREA TREATED: [...] as planned. ? Farheen Cronin MD? Normal [facility] CNOVon 09-30-2017 CNOV Office Visit (RADTSA ) JOSS WASHINGTON ([id number]) 1950 F Date Time Provider Department 09/30/17 [...] the Right?breast, UIQ,?pathologic?stage 0 (Tis Nx M0),?ER-positive, MA-positive, s/p?partial mastectomy ? COURSE: definitive AREA TREATED: [...] right breast*INVALID FOR* Visit Notes: >> Anatoliy (Environmental Protection Inspector) CLARA Ha loni Sep 30, 2017 10:21 AM Status: Signed Status: Post-menopausal. Encounter Status:Closed by FARHEEN CRONIN MD on 09/30/17 [facility] PROGRESSon 09-30-2017 Protein mass conc HNO ID: [id number] Author: Farheen Cronin Service: (none) Author Type: Physician Type: Progress Notes Filed: 09/30/2017 11:48 AM Note Text: Radiation Oncology - On Treatment Review (OTR) Note PATIENT NAME: Joss Washington PATIENT DIAGNOSIS: DCIS?of the Right?breast, UIQ,?pathologic?stage 0 (Tis Nx M0),?ER-positive, MA-positive, s/p?partial mastectomy ? COURSE: definitive AREA TREATED: [...] as planned. ? Farheen Cronin MD? Normal [facility] CNOVon 09-22-2017 CNOV Office Visit (RADTSA ) JOSS WASHINGTON ([id number]) 1950 F Date Time Provider Department 09/22/17 [...] the Right?breast, UIQ,?pathologic?stage 0 (Tis Nx M0),?ER-positive, MA-positive, s/p?partial mastectomy ? COURSE: definitive AREA TREATED: [...] by FARHEEN CRONIN MD on 09/22/17 Normal [facility] PROGRESSon 09-22-2017 Protein mass conc HNO ID: [id number] Author: Farheen Cronin Service: (none) Author Type: Physician Type: Progress Notes Filed: 09/22/2017 2:38 PM Note Text: Radiation Oncology - On Treatment Review (OTR) Note PATIENT NAME: Joss Washington PATIENT DIAGNOSIS: DCIS?of the Right?breast, UIQ,?pathologic?stage 0 (Tis Nx M0),?ER-positive, MA-positive, s/p?partial mastectomy ? COURSE: definitive AREA TREATED: [...] treatment as planned. ? Farheen Cronin MD [facility] CBC and Differentialon 09-18 Abs Baso 0.03 k/uL Normal 0.00-0.10 [facility] Abs Jackson 0.45 k/uL Normal 0.00-0.86 [facility] Abs Neut 5.16 k/uL Normal 1.45-7.50 [facility] Basophils/100 WBC (Bld) 0.4 % Normal [facility] Eosinophils #/vol (Bld) 0.23 10*3/uL Normal 0.00-0.45 [facility] Eosinophils/100 WBC (Bld) 3.2 % Normal [facility] Erythrocyte distribution width Ratio (RBC) 15.0 % Normal 11.5-15.0 [facility] Hematocrit Volume Fraction (Bld) 39.1 % Normal 36.0-46.0 [facility] Hemoglobin mass conc (Bld) 13.0 g/dL Normal 11.5-15.5 [facility] Lymphocytes #/vol (Bld) 1.40 10*3/uL Normal 1.00-4.00 [facility] Lymphocytes/100 WBC (Bld) 19.3 % Normal [facility] MCH Entitic mass (RBC) 30.6 pG Normal 26.0-34.0 [facility] MCHC mass conc (RBC) 33.2 g/dL Normal 30.5-36.0 [facility] MCV Entitic volume (RBC) 92.0 fL Normal 80.0-100.0 [facility] Monocytes/100 WBC (Bld) 6.2 % Normal [facility] Neutrophils/100 WBC (Bld) 70.9 % Normal [facility] Platelet mean volume Entitic volume (Bld) 9.5 fL Normal 9.0-12.7 [facility] Platelets #/vol (Bld) 272 10*3/uL Normal 150-400 [facility] RBC #/vol (Bld) 4.25 10*6/uL Normal 3.90-5.20 [facility] WBC #/vol (Bld) 7.27 10*3/uL Normal 3.70-11.00 [facility] CNOVon 09-18-2017 CNOV Office Visit (RADTSA ) FELIXJOSS ([id number]) 1950 F Date Time Provider Department 09/18/17 [...] De León RN Referring Provider: FARHEEN CRONIN [[id number]] Allergies As of Date: 09/18/2017 (No Known [...] Visit Notes: >> Dexter De León RN [facility] Sep 18, 2017 10:01 AM Status: [...] by DEXTER DE LEÓN on 09/18/17 Normal [facility] CNOVon 09-16-2017 CNOV Office Visit (RADTSA ) JOSS WASHINGTON ([id number]) 1950 F Date Time Provider Department 09/16/17 [...] the Right?breast, UIQ,?pathologic?stage 0 (Tis Nx M0),?ER-positive, MA-positive, s/p?partial mastectomy ? 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 COURSE: definitive AREA TREATED: [...] treatment as planned. ? 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 COURSE: definitive AREA TREATED: [...] requiring intervention. Signed by: Jem Santana MD [facility] CNOVbere 09-08-2017 CNOV Office Visit (RADTSA ) JOSS WASHINGTON ([id number]) 1950 F Date Time Provider Department 09/08/17 10:15 AM JEM SANTANA During your visit today, we recorded the following information about you: Blood pressure Weight 130/82 130.6 kg Anatoliy Graves, QUALITY REP, RN 09/08/2017 12:04 PM Signed Status: Post-menopausal. 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 COURSE: definitive AREA TREATED: [...] by JEM SANTANA MD on 09/18/17 Normal [facility] CBC and Differentialon 09-04 Abs Baso 0.03 k/uL Normal <0.11 [facility] Comment on above: Performed By: #### C BCDIF ####[facility] [place] [phone] Abs Jackson 0.45 k/uL Normal <0.87 [facility] Comment on above: Performed By: #### C BCDIF ####[place] [address] [address] [place] [phone] Abs Neut 3.74 k/uL Normal 1.45-7.50 [facility] Comment on above: Performed By: #### C BCDIF ####[facility] [place] [phone] Basophils/100 WBC (Bld) 0.5 % Normal [facility] Comment on above: Performed By: #### C BCDIF ####[place] [address] [address] [place] [phone] Comment AGC=3.68 Normal [facility] Comment on above: Result Comment: Prel iminary result. Interpret with caution. Final results may vary. Results requested and read back by: /09/04/1710/15/1026/OSITO CASTELLON Performed By: #### C BCDIF ####[place] [address] [address] [phone] Eosinophils #/vol (Bld) 0.23 10*3/uL Normal <0.46 [facility] Comment on above: Performed By: #### C BCDIF ####[facility] [address], [place] [phone] Eosinophils/100 WBC (Bld) 3.7 % Normal [facility] Comment on above: Performed By: #### C BCDIF ####[place] [address] [address] [phone] Erythrocyte distribution width Ratio (RBC) 15.5 % High 11.5-15.0 [facility] Comment on above: Performed By: #### C BCDIF ####[place] [address] [address] [phone] Hematocrit Volume Fraction (Bld) 37.1 % Normal 36.0-46.0 [facility] Comment on above: Performed By: #### C BCDIF ####[place] [phone] Hemoglobin mass conc (Bld) 12.2 g/dL Normal 11.5-15.5 [facility] Comment on above: Performed By: #### C BCDIF ####[place] [phone] Lymphocytes #/vol (Bld) 1.78 10*3/uL Normal 1.00-4.00 [facility] Comment on above: Performed By: #### C BCDIF ####[place] [address] [address] [phone] Lymphocytes/100 WBC (Bld) 28.6 % Normal [facility] Comment on above: Performed By: #### C BCDIF ####[place] [address] [address] [phone] MCH Entitic mass (RBC) 30.3 pG Normal 26.0-34.0 [facility] Comment on above: Performed By: #### C BCDIF ####[place] [address] [address] [phone] MCHC mass conc (RBC) 32.9 g/dL Normal 30.5-36.0 [facility] Comment on above: Performed By: #### C BCDIF ####[place] [address] [address], [place] [phone] MCV Entitic volume (RBC) 92.1 fL Normal 80.0-100.0 [facility] Comment on above: Performed By: #### C BCDIF ####[place] [address] [address] [place] [place], [place] [phone] Monocytes/100 WBC (Bld) 7.2 % Normal [facility] Comment on above: Performed By: #### C BCDIF ####[address] [place], [place] [phone] Neutrophils/100 WBC (Bld) 60.0 % Normal [facility] Comment on above: Performed By: #### C BCDIF ####[address] [phone] Platelet mean volume Entitic volume (Bld) 9.3 fL Normal 9.0-12.7 [facility] Comment on above: Performed By: #### C BCDIF ####[place] [address] [address] [place], [place] [phone] Platelets #/vol (Bld) 285 10*3/uL Normal 150-400 [facility] Comment on above: Performed By: #### C BCDIF ####[place] [address] [address], [place] [phone] RBC #/vol (Bld) 4.03 10*6/uL Normal 3.90-5.20 [facility] Comment on above: Performed By: #### C BCDIF ####[place] [address] [address] [place], [place] [phone] WBC #/vol (Bld) 6.19 10*3/uL Normal 3.70-11.00 [facility] Comment on above: Performed By: #### C BCDIF ####[facility] [address] [place], [place] [phone] CNOVon 09-04-2017 CNOV Office Visit (RADTSA ) JOSS WASHINGTON ([id number]) 1950 F Date Time Provider Department 09/04/17 [...] De León RN Referring Provider: FARHEEN CRONIN [[id number]] Allergies As of Date: 09/04/2017 (No Known [...] by DEXTER DE LEÓN on 09/04/17 Normal [facility] CNOVon 09-02-2017 CNOV Office Visit (RADTSA ) JOSS WASHINGTON ([id number]) 1950 F Date Time Provider Department 09/02/17 [...] pathologic stage 0 (Tis Nx M0), ER-positive, MA-positive, s/p partial mastectomy COURSE: definitive AREA TREATED: [...] by FARHEEN CRONIN MD on 09/02/17 Normal [facility] PROGRESSon 09-02-2017 Protein mass conc HNO ID: [id number] Author: Farheen Cronin Service: (none) Author Type: Physician Type: Progress Notes Filed: 09/02/2017 1:31 PM Note Text: Radiation Oncology - On Treatment Review (OTR) Note PATIENT NAME: Joss Washington PATIENT DIAGNOSIS: DCIS of the Right breast, UIQ, pathologic stage 0 (Tis Nx M0), ER-positive, MA-positive, s/p partial mastectomy COURSE: definitive AREA TREATED: [...] radiation treatment as planned. Farheen Cronin MD [facility] CNOVon 08-27-2017 CNOV Office Visit (RADTSA ) JOSS WASHINGTON ([id number]) 1950 F Date Time Provider Department 08/27/17 1:30 PM JEM SANTANA During your visit today, we recorded the following information about you: Dexter De León RN, RN 08/27/2017 2:20 PM Signed Status: Post-menopausal. 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 Plan and MU calculations [...] of treatment. Signed by: Jem Santana MD [facility] CT NON-RADIOLOGY -NBNRo n 08-20-[address] [facility] [address] NON-RADIOLOGY -NBNR [facility] - CT Images - Obtained Outside of [facility] [employer] [id number] [facility] CNCNPATEDon 08-20-2017 CNCNPATED Education (RADTSA) JOSS WASHINGTON ([id number]) 1950 F Date Time Provider Department 08/20/17 ANATOLIY HA LPN Reason for Visit: Patient Education [91] Visit Notes: >> Anatoliy Ha RN FriAugust 20, 2017 3:46 PM Status: Signed Radiation Therapy - Patient Education Note PATIENT NAME: Joss Washington PATIENT August 20, 2017 [facility] FACILITY/LOCATION: [facility] READINESS TO LEARN Cognitive Ability: Alert and [...] 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 Was approved? No Signed by: Anatoliy Ha [...] Encounter Status:Closed by ANATOLIY HA on 08/20/17 [facility] CNOVon 08-20-2017 CNOV Office Visit (RADTSA ) JOSS WASHINGTON ([id number]) 1950 F Date Time Provider Department 08/20/17 [...] pathologic stage 0 (Tis Nx M0), ER-positive, MA-positive, s/p partial mastectomy. HPI: 67 year old [...] with her . 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 COMPLETE REVIEW [...] Cronin MD cc: Lawrence Rai MD [address] [place] [phone] Katherine Downs MD [facility] [address] [place] [address] Dr. Berman This note was dictated with Jazmin Naturally Speaking and may contain some grammatical errors due to limitations of the software. Referring Provider: KATHERINE DOWNS [[id number]] Allergies As of Date: 08/20/2017 (No Known [...] by FARHEEN CRONIN MD on 08/20/17 Normal [facility] PROGRESSon 08-20-2017 Protein mass conc HNO ID: [id number] Author: Farheen Cornin Service: (none) Author Type: Physician Type: Progress Notes Filed: 08/20/2017 3:39 PM Note Text: Radiation Oncology - New Patient/Consult Note PATIENT NAME: Joss Washington PATIENT REQUESTING PROVIDER: Dr. Katherine Downs DIAGNOSIS: 67 year old female with DCIS of the Right breast, UIQ, pathologic stage 0 (Tis Nx M0), ER-positive, MA-positive, s/p partial mastectomy. HPI: 67 year old [...] with her . 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 COMPLETE REVIEW [...] Cronin MD cc: Lawrence Rai MD [address] [place] [phone] Katherine Downs MD [facility] [address] [place] [address] Dr. Berman This note was dictated with Dragon Naturally Speaking and may contain some grammatical errors due to limitations of the software. 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 / NRS 08/20/20173:59 PM Normal [facility] Protein mass conc HNO ID: [id number] Author: Farheen Cronin Service: (none) Author Type: Physician Type: Progress Notes Filed: 08/27/2017 12:34 AM Note Text: JOSS WASHINGTON [id number] 08/20/2017 [facility] Department of Radiation Oncology Treatment Planning [...] Signed Farheen Cronin M.D. 08/26/20171:02 PM Normal [facility] CNOVSPon 08-14-2017 CNOVSP Visit (SP) Office (HEMACL) JOSS WASHINGTON ([id number]) 1950 F Date Time Provider Department 08/14/17 [...] Katherine Downs MD Referring Provider: GEREMIAS BERMAN [[id number]] Allergies As of Date: 08/14/2017 (No Known Allergies) Date Reviewed: 08/14/2017 Reviewed by: Iesha Luis - Fully Assessed Primary Visit Diagnosis:Ductal carcinoma in situ (DCIS) of right breast [D05.11] Order(s):RAD/ONC CONSULT [9037] Order #: [id number]: 1 Prescriptions as of 08/14/2017 Sig: VENTOLIN [...] by KATHERINE DOWNS MD on 08/14/17 Normal [facility] PROGRESSon 08-14-2017 Protein mass conc HNO ID: [id number] Author: Katherine Downs Service: (none) Author Type: [...] needed. - RAD/ONC CONSULT Katherine Downs MD [facility] US-US GUIDE LOCAL BREAST RT IMPORTon 07-04-2017 US-US GUIDE LOCAL BREAST RT IMPORT Images were obtained outside of [facility] [id number] [facility] MAMM OUTSIDE DICOM IMPORT -N BNRon 06-18-2017 MAMM OUTSIDE DICOM IMPORT -NBNR Images were obtained outside of [facility] [id number] [facility] Encounters Encounter Date Encounter Type Care Provider Facility Start: 03-16-2022 End: 03-17-[address] LAWRENCE RAI Facility:[facility] Start: 02-28-[address] LAWRENCE RAI Facility :[facility] Start: 02-08-2022 End: 02-09-[address] LAWRENCE RAI Facility:[facility] Start: 11-30-2021 End: 12-01-[address] LAWRENCE RAI Facility:[facility] Start: 06-11-2018 End: 06-15-2018 Patient encounter procedure FARHEEN CRONIN [facility] Start: 02-12-2018 End: 02-13-2018 Patient encounter procedure FARHEEN CRONIN [facility] Start: 12-04-2017 End: 12-11-2017 Patient encounter procedure LISA ([employer]ING [employer]EM[employer]) ЕКАТЕРИНА [facility] Start: 10-30-2017 End: 10-30-2017 Patient encounter procedure FARHEEN CRONIN [facility] Start: 10-15-2017 End: 10-20-2017 Patient encounter procedure KATHERINE DOWNS [facility] Start: 10-14-2017 End: 10-14-2017 Patient encounter procedure FARHEEN CRONIN [facility] Start: 10-13-2017 End: 10-15-2017 Patient encounter procedure KATHERINE DOWNS [facility] Start: 10-09-2017 End: 10-30-2017 Patient encounter procedure KATHERINE DOWNS [facility] Start: 10-08-2017 End: 10-10-2017 Patient encounter procedure KATHERINE DOWNS [facility] Start: 10-07-2017 End: 10-07-2017 Patient encounter procedure FARHEEN CRONIN [facility] Start: 10-06-2017 End: 10-10-2017 Patient encounter procedure KATHERINE DOWNS [facility] Start: 10-03-2017 End: 10-08-2017 Patient encounter procedure KATHERINE DOWNS [facility] Start: 10-02-2017 End: 10-20-2017 Patient encounter procedure KATHERINE DOWNS [facility] Start: 09-30-2017 End: 09-30-2017 Patient encounter procedure FARHEEN CRONIN [facility] Start: 09-29-2017 End: 10-06-2017 Patient encounter procedure KATHERINE DOWNS [facility] Start: 09-26-2017 End: 10-02-2017 Patient encounter procedure KATHERINE DOWNS [facility] Start: 09-25-2017 End: 09-29-2017 Patient encounter procedure KATHERINE DOWNS [facility] Start: 09-24-2017 End: 10-06-2017 Patient encounter procedure KATHERINE DOWNS [facility] Start: 09-23-2017 End: 09-29-2017 Patient encounter procedure KATHERINE DOWNS [facility] Start: 09-22-2017 End: 09-22-2017 Patient encounter procedure FARHEEN CRONIN [facility] Start: 09-19-2017 End: 09-22-2017 Patient encounter procedure KATHERINE DOWNS [facility] Start: 09-18-2017 End: 09-18-2017 Patient encounter procedure FARHEEN CRONIN [facility] Start: 09-17-2017 End: 09-30-2017 Patient encounter procedure KATHERINE DOWNS [facility] Start: 09-16-2017 End: 09-16-2017 Patient encounter procedure FARHEEN CRONIN [facility] Start: 09-15-2017 End: 09-17-2017 Patient encounter procedure KATHERINE DOWNS [facility] Start: 09-12-2017 End: 09-17-2017 Patient encounter procedure KATHERINE DOWNS [facility] Start: 09-11-2017 End: 09-15-2017 Patient encounter procedure KATHERINE DOWNS [facility] Start: 09-10-2017 End: 09-22-2017 Patient encounter procedure KATHERINE DOWNS [facility] Start: 09-09-2017 End: 09-15-2017 Patient encounter procedure KATHERINE DOWNS [facility] Start: 09-08-2017 End: 09-08-2017 Patient encounter procedure JEM SANTANA [facility] Start: 09-05-2017 End: 09-15-2017 Patient encounter procedure KATHERINE DOWNS [facility] Start: 09-04-2017 End: 09-04-2017 Patient encounter procedure ZULEMAAdrián Celeste CRONIN [facility] Start: 09-03-2017 End: 09-15-2017 Patient encounter procedure KATHERINE DOWNS [facility] Start: 09-02-2017 End: 09-02-2017 Patient encounter procedure FARHEEN CRONIN [facility] Start: 09-01-2017 End: 09-04-2017 Patient encounter procedure KATHERINE DOWNS [facility] Start: 08-29-2017 End: 09-01-2017 Patient encounter procedure KATHERINE DOWNS [facility] Start: 08-28-2017 End: 09-01-2017 Patient encounter procedure KATHERINE DOWNS [facility] Start: 08-27-2017 End: 08-27-2017 Patient encounter procedure JEM SANTANA [facility] Start: 08-20-2017 End: 08-21-2017 Patient encounter procedure ZULEMAAdrián Celeste BARBOSAI [facility] Start: 08-14-2017 End: 08-15-2017 Patient encounter procedure [facility] Payers Date Payer Category Payer Medicare [id number] 1958 Self-pay [id number] Unknown [id number] 1950 Unknown [id number] 2.16.84 [id number] 1950 Unknown [id number] 2.16.84 [id number] 1951 Unknown [id number] 2.16.84 [id number] 1950 Unknown [id number] 2.16.84 [id number] Summary Purpose Family History No Family History Records FoundNo Family History Records FoundNo Family History Records Found Advance Directives No Advanced Directives Records FoundNo Advanced Directives Records FoundNo Advanced Directives Records Found Additional Source Comments INFORMATION SOURCE (unrecogn ized section and content) DATE CREATED AUTHOR 06/15/2018 [facility] DATE CREATED AUTHOR AUTHOR'S ORGANIZ ATION 07/26/2019 [facility] DATE CREATED AUTHOR AUTHOR'S ORGANIZ ATION [...] BE BASED ON THE PRIMARY CLINICAL RECORDS. [employer] provides no warranty or guarantee of the accuracy or completeness of information in this document.
== END 2024-04-13 09:01 | disposition home or self-care (01) ==
LOC: CARD 09:00
PROVIDERS: PCP Family Medicine; Visit Provider Family Medicine
DX: R07.9 Chest pain, unspecified (principal); R00.2 Palpitations
CPT/HCPCS: 93270

== ENCOUNTER 2024-05-14 07:21 | Outpatient (OUT) | payer MEDICARE, OTHER, SELFPAY ==
--- OUTSIDE RECORDS SUMMARY | 2024-05-14 07:24 | XMS_ITS | CCD ---
Author Organization [facility] Care Team Providers Care Pathology Manager Name Role Phone KATHERINE DOWNS Attending Unavailable GEREMIAS BERMAN Referring Unavail able CRONIN, KHALID R Attending Unavailable KATHERINE DOWNS Referring Unavailable CRONIN, KHALID Celeste Attending Unavailable CRONIN, KHALID R Referring Unavailable [...] CRONIN, KHALID R Referring Unavailable LISA WILLAMS ([facility]) Attending Unavailabl e CRONIN, KHALID R [...] Attending Unavailable DR LAWRENCE RAI Consulting Unavailable BETY, DR BRAVO Primary Care Unavailable DR LAWRENCE RAI Admitting Unavailable DR LAWRENCE RAI Attending Unavailable DR LAWRENCE RAI Primary Care Unavailable JOHN YIN Attending Unavailable Problems Active Problems Problem Classification Problem Date Documented Da te Episodic/Chronic Cancer of breast (5 sources) Intraductal carcinoma in situ of right breast; Translations: [Intraductal carcinoma in situ of right breast] Onset: 08-14-2017 Chronic Diabetes mellitus without complication (1 source) Type 2 diabetes mellitus without complications; Translations: [TYPE 2 DM WITHOUT COMPLICATIONS] Onset: 12-04-2021 Chronic Disorders of lipid metabolism (2 sources) Hyperlipidemia, unspecified; Translations: [Hyperlipidemia, unspecified] Onset: 05-07-2024 Chronic Essential hypertension (1 source) Essential (primary) [...] MALIG NEOPLASM OTH ORGN/SYS] Onset: 02-11-2022 Episodic Transient cerebral ischemia (2 sources) Transient cerebral ischemic attack, unspecified; Translations: [Transient cerebral ischemic attack, unspecified] Onset: 05-07-2024 Chronic Past or Other Problems Problem Classification Problem [...] Test Name Value Interpretation Reference Range Facility Office Visiton 05-07-2024 Follow-up visit [id number] Joss Washington 1950 F Date Provider Department Center 05/07/2024 [id number] YIN [facility] Family History Problem Relation Age of Onset Hypertension Mother Stroke Mother Hyperlipidemia Mother Hypertension Father Coronary artery disease Father Hyperlipidemia Father Cancer Father Family Status - Relation Status Age at Mother Father Level of Service:60045 [place] OFFICE/OUTPATIENT NEW MODERATE MDM 45 MINUTES Reason for Visit and Comments: Chest Pain [250432] - Patient describes it as chest discomfort . Says she was told 40+ years ago that she had mitral valve prolapse. Echo was done with recent admission. Hypertension [817704] - She was admitted to [facility] in Feb 2024 for TIA and hypertension. Hyperlipidemia [182] Shortness of Breath [] - C/o MORENO. Palpitations [] - She wore 7 day Holter after hospital admission. She is currently wearing a 30 day event monitor. Normal [facility] XR SHOULDER LT 2V or >on XR SHOULDER LT 2V or > EXAM: [...] by: LIBIA GIBBS Date: 2022-03-17 13:31 Normal [facility] MG MAMM ABHAY DIAG W CADon MG MAMM ABHAY DIAG W CAD Patient: JOSS WASHINGTON. Exam Date: 02/08/2022 : 1950 Gender:F Ordering : DR LAWRENCE RAI . Admission #: [id number] Family : Order #: [id number] CLICK HERE TO VIEW EXAM RADIOLOGY REPORT [...] brain cancer at age 69. LOCATION: [facility] BREAST COMPOSITION: Scattered areas fibroglandular density. [...] Lima M.D. on 02/08/2022 at 08:46 Normal [facility] T4, T3U, FTI LABCORPon 12-01 Free Thyroxine Index 1.7 Normal 1.2-4.9 [facility] Comment on above: Performed By: #### T HYLC #### [facility] [address], [place] [address] Dr. Sheldon Cordero T3 Uptake 27 % Normal 24-39 [facility] Comment on above: Performed By: #### T HYLC #### [facility] [address], [place] [address] Dr. Sheldon Cordero T4 [Mass/Vol] 6.4 ug/dL Normal 4.5-12.0 [facility] Comment on above: Performed By: #### T HYLC #### [facility] [address] [place] [address] [address] Sheldon Cordero CBC AUTO DIFFon 11-30-2021 BASO # 0.1 103/ul Normal 0.0-0.1 [facility] Comment on above: Performed By: #### C BC #### [facility] [address] [address] [address] Sheldon Cordero Basophils/100 WBC (Bld) 0.8 % Normal 0.2-2.0 [facility] Comment on above: Performed By: #### C BC #### [facility] [address] [address] [address] Sheldon Cordero EO # 0.3 103/ul Normal 0.0-0.7 [facility] Comment on above: Performed By: #### C BC #### [facility] [address] [place] [address] Dr. Sheldon Cordero Eosinophils/100 WBC (Bld) 3.8 % Normal 0.9-7.0 [facility] Comment on above: Performed By: #### C BC #### [facility] [address] [address] [address] Sheldon Cordero Erythrocyte distribution width (RBC) [Ratio] 14.6 % Normal 11.0-15.0 [facility] Comment on above: Performed By: #### C BC #### [facility] [address] [place] [address] Dr. Sheldon Cordero Hematocrit (Bld) [Volume fraction] 39.3 % Normal 36.0-48.0 [facility] Comment on above: Performed By: #### C BC #### [facility] [address] [address] [address] Sheldon Cordero Hemoglobin (Bld) [Mass/Vol] 12.4 g/dL Normal 12.0-16.0 [facility] Comment on above: Performed By: #### C BC #### [facility] [address] [address] [address] Sheldon Cordero IG # 0.08 10e3/ul Critically high 0.00-0.03 [facility] Comment on above: Performed By: #### C BC #### [facility] [address] [place] [address] Dr. Sheldon Cordero IG % 1.1 % Critically high 0.0-0.5 [facility] Comment on above: Performed By: #### C BC #### [facility] [address] [place] [address] Dr. Sheldon Cordero LYMPH # 1.8 103/ul Normal 1.2-3.8 [facility] Comment on above: Performed By: #### C BC #### [facility] [address] [place] [address] Dr. Sheldon Cordero Lymphocytes/100 WBC (Bld) 25.1 % Normal 20.5-60.0 [facility] Comment on above: Performed By: #### C BC #### [facility] [address] [place] [address] Dr. Sheldon Cordero MANUAL DIFF REQ NO Normal [facility] Comment on above: Performed By: #### C BC #### [facility] [address] [place] [address] Dr. Sheldon Cordero MCH (RBC) [Entitic mass] 29.6 pg Normal 26.7-34.0 [facility] Comment on above: Performed By: #### C BC #### [facility] [address] [place] [address] Dr. Sheldon Cordero MCHC (RBC) [Mass/Vol] 31.6 g/dL Normal 29.9-35.2 [facility] Comment on above: Performed By: #### C BC #### [facility] [address] [place] [address] Dr. Sheldon Cordero MCV (RBC) [Entitic vol] 93.8 fL Normal 81.0-99.0 [facility] Comment on above: Performed By: #### C BC #### [facility] [address] [place] [address] Dr. Sheldon Cordero MONO # 0.4 103/ul Normal 0.3-0.8 [facility] Comment on above: Performed By: #### C BC #### [facility] [address] [address] [address] Sheldon Cordero Monocytes/100 WBC (Bld) 5.8 % Normal 1.7-12.0 [facility] Comment on above: Performed By: #### C BC #### [facility] [address] [address] [address] Sheldon Cordero NEUT # 4.6 103/ul Normal 1.4-6.5 [facility] Comment on above: Performed By: #### C BC #### [facility] [address] [address] [address] Sheldon Cordero Neutrophils/100 WBC (Bld) 63.4 % Normal 43.0-75.0 [facility] Comment on above: Performed By: #### C BC #### [facility] [address] [place] [address] Dr. Sheldon Cordero Platelet mean volume (Bld) [Entitic vol] 8.9 fL Critically low 9.5-13.5 [facility] Comment on above: Performed By: #### C BC #### [facility] [address] [place] [address] Dr. Sheldon Cordero PLT 277 103/ul Normal 150-450 [facility] Comment on above: Performed By: #### C BC #### [facility] [address] [place] [address] Dr. Sheldon Cordero RBC 4.19 106/ul Critically low 4.20-5.40 [facility] Comment on above: Performed By: #### C BC #### [facility] [address] [place] [address] Dr. Sheldon Cordero WBC 7.2 103/ul Normal 4.0-11.0 [facility] Comment on above: Performed By: #### C BC #### [facility] [address] [place] [address] Dr. Sheldon Cordero GLYCOHEMOGLOBIN A1Con 2021 ADA RECOMMENDATION SEE BELOW Normal [facility] Comment on above: Result Comment: ADA RECOMMENDED LIMIT 4.0 - 6.0 ADA THERAPEUTIC TARGET < 7.0 ACTION SUGGESTED > 7.0 Performed By: #### A 1C #### [facility] [address] [address] [address] Sheldon Cordero Glucose [Mass/Vol] 128 mg/dL Normal [facility] Comment on above: Performed By: #### A 1C #### [facility] [address] [address] [address] Sheldon Cordero HbA1c (Bld) [Mass fraction] 6.1 % Normal 4.5-6.2 [facility] Comment on above: Performed By: #### A 1C #### [facility] [address] [place] [address] Dr. Sheldon Cordero IRONon 11-30-2021 Iron [Mass/Vol] 58.0 ug/dL Normal 50.0-170.0 [facility] Comment on above: Performed By: #### I GERMAN #### [facility] [address] [place] [address] Dr. Sheldon Cordero LIPID PROFILEon 11-30-2021 CHOL-HDL RATIO NORM SEE BELOW Normal [facility] Comment on above: Result Comment: 3.3 - 4.4 LOW RISK 4.4 - 7.1 AVERAGE RISK 7.1 - 11.0 MODERATE RISK >11.0 HIGH RISK Performed By: #### L IPID, TSH, CMP #### [facility] [address] [place] [address] Dr. Sheldon Cordero Cholesterol [Mass/Vol] 251 mg/dL Critically high <=200 [facility] Comment on above: Performed By: #### L IPID, TSH, CMP #### [facility] [address] [place] [address] Dr. Sheldon Cordero Cholesterol in HDL [Mass/Vol] 70 mg/dL Critically high 40-60 [facility] Comment on above: Performed By: #### L IPID, TSH, CMP #### [facility] [address] [place] [address] Dr. Sheldon Cordero Cholesterol in LDL [Mass/Vol] 161.4 mg/dL Normal [facility] Comment on above: Performed By: #### L IPID, TSH, CMP #### [facility] [address] [address] [address] Sheldon Cordero Cholesterol.total/Ch olesterol in HDL [Mass ratio] 3.6 {ratio} Normal [facility] Comment on above: Performed By: #### L IPID, TSH, CMP #### [facility] [address] [address] [address] Sheldon Cordero HDL NORMAL > or = 60 mg/dl - LO W CARDIOVASCULAR RISK <40 mg/dl - HIGH CARDIOVASCULAR RISK Normal [facility] Comment on above: Performed By: #### L IPID, TSH, CMP #### [facility] [address] [place] [address] [address] Sheldon Cordero LDL CALC NORMAL SEE BELOW Normal [facility] Comment on above: Result Comment: <100 mg/dl OPTIMAL 100 - 129 mg/dl NEAR OR ABOVE OPTIMAL 130 - 159 mg/dl BORDERLINE HIGH 160 - 189 mg/dl HIGH >190 mg/dl VERY HIGH Performed By: #### L IPID, TSH, CMP #### [facility] [address] [address] [address] Sheldon Cordero Triglyceride [Mass/Vol] 98 mg/dL Normal <=150 [facility] Comment on above: Performed By: #### L IPID, TSH, CMP #### [facility] [address] [place] [address] Dr. Sheldon Cordero VLDL CALC 19.6 mg/dL Normal [facility] Comment on above: Performed By: #### L IPID, TSH, CMP #### [facility] [address] [address] [address] Sheldon Cordero PROF 14(COMP METB)on 022 Albumin [Mass/Vol] 3.4 g/dL Normal 3.4-5.0 [facility] Comment on above: Performed By: #### L IPID, TSH, CMP #### [facility] [address] [place] [address] Dr. Sheldon Cordero Albumin/Globulin [Mass ratio] 0.9 {ratio} Normal [facility] Comment on above: Performed By: #### L IPID, TSH, CMP #### [facility] [address] [address] [address] Sheldon Cordero ALP [Catalytic activity/Vol] 107 U/L Normal 46-116 [facility] Comment on above: Performed By: #### L IPID, TSH, CMP #### [facility] [address] [address] [address] Sheldon Cordero ALT [Catalytic activity/Vol] 17 U/L Normal 14-59 [facility] Comment on above: Performed By: #### L IPID, TSH, CMP #### [facility] [address] [address] [address] Sheldon Cordero Anion gap [Moles/Vol] 10.9 mmol/L Normal [facility] Comment on above: Performed By: #### L IPID, TSH, CMP #### [facility] [address] [address] [address] Sheldon Cordero AST [Catalytic activity/Vol] 11 U/L Critically low 15-37 [facility] Comment on above: Performed By: #### L IPID, TSH, CMP #### [facility] [address] [address] [address] Sheldon Cordero Bilirubin [Mass/Vol] 0.3 mg/dL Normal 0.2-1.0 [facility] Comment on above: Performed By: #### L IPID, TSH, CMP #### [facility] [address] [address] [address] Sheldon Cordero Calcium [Mass/Vol] 9.1 mg/dL Normal 8.5-10.1 [facility] Comment on above: Performed By: #### L IPID, TSH, CMP #### [facility] [address] [address] [address] Sheldon Cordero Chloride [Moles/Vol] 106 mmol/L Normal 98-107 [facility] Comment on above: Performed By: #### L IPID, TSH, CMP #### [facility] [address] [address] [address] Sheldon Cordero CO2 [Moles/Vol] 30.6 mmol/L Normal 21.0-32.0 [facility] Comment on above: Performed By: #### L IPID, TSH, CMP #### [facility] [address] [address] [address] Sheldon Cordero Creatinine [Mass/Vol] 0.93 mg/dL Normal 0.55-1.02 [facility] Comment on above: Performed By: #### L IPID, TSH, CMP #### [facility] [address] [address] [address] Sheldon Cordero EGFR-AF CROATIAN >60 Normal >=60 [facility] Comment on above: Performed By: #### L IPID, TSH, CMP #### [facility] [address] [place] [address] [address] Sheldon Cordero EGFR-NON AF CROATIAN =60 Normal >=60 [facility] Comment on above: Performed By: #### L IPID, TSH, CMP #### [facility] [address] [address] [address] Sheldon Cordero Globulin (S) [Mass/Vol] 4.0 g/dL Normal [facility] Comment on above: Performed By: #### L IPID, TSH, CMP #### [facility] [address] [address] [address] Sheldon Cordero Glucose [Mass/Vol] 101 mg/dL Normal 74-106 [facility] Comment on above: Performed By: #### L IPID, TSH, CMP #### [facility] [address] [place] [address] [address] Sheldon Cordero Potassium [Moles/Vol] 4.5 mmol/L Normal 3.5-5.1 [facility] Comment on above: Performed By: #### L IPID, TSH, CMP #### [facility] [address] [address] [address] Sheldon Cordero Protein [Mass/Vol] 7.4 g/dL Normal 6.4-8.2 [facility] Comment on above: Performed By: #### L IPID, TSH, CMP #### [facility] [address] [place] [address] [address] Sheldon Cordero Sodium [Moles/Vol] 143 mmol/L Normal 136-145 [facility] Comment on above: Performed By: #### L IPID, TSH, CMP #### [facility] [address] [place] [address] Dr. Sheldon Cordero Urea nitrogen [Mass/Vol] 18.0 mg/dL Normal 7.0-18.0 [facility] Comment on above: Performed By: #### L IPID, TSH, CMP #### [facility] [address] [address] [address] Sheldon Cordero Urea nitrogen/Creatinine [Mass ratio] 19.4 mg/mg Normal [facility] Comment on above: Performed By: #### L IPID TSH, CMP #### [facility] [address] [place] [address] Dr. Sheldon Cordero TSHon 11-30-2021 TSH 2.774 uIU/mL Normal 0.358-3.740 [facility] Comment on above: Performed By: #### L IPID, TSH, CMP #### [facility] [address] [place] [address] Dr. Sheldon Cordero Lactic Acidon 11-02-2018 Lactate [Mass/Vol] 7.5 mg/dL Normal 4.5-19.8 [facility] Comment on above: Performed By: #### 2 [id number] #### [facility] [address] [place] [address] CNOVon 06-11-2018 CNOV Office Visit (YOVANNYA ) JOSS WASHINGTON ([id number]) 1950 F Date Time Provider Department 06/11/18 [...] pathologic stage 0 (Tis Nx ?M0), ER-positive, FL-positive, s/p partial mastectomy ? ? INTERVAL HISTORY: [...] M.D., FACRO ? cc: Lawrence Rai MD [address] [place] [address] ? Katherine Downs MD [facility] [address] [place] [address] [place] [address] ? Dr. Berman ? This note was dictated with Jazmin Naturally Speaking and may contain some grammatical errors due to limitations of the software. Dexter De Lóen RN, was present in the examination room throughout the encounter. Referring Provider: LAWRENCE RAI [[id number]] Allergies As of Date: 06/11/2018 (No Known Allergies) Date Reviewed: 06/11/2018 Reviewed by: Dexter (Rn) CLARA De León - Fully Assessed Reason for Visit: Breast Cancer [519] Primary Visit Diagnosis:Ductal carcinoma in situ (DCIS) of right breast [D05.11] Order(s):[facility] DIAGNOSTIC BILAT [8007122] Order #: [id number] FUTURE Prescriptions as of 06/11/2018 Sig: VENTOLIN [...] Status:Closed by FARHEEN CRONIN MD on 06/11/18 [facility] PROGRESSon 06-11-2018 Protein mass conc HNO ID: [id number] Author: Farheen Cronin Service: ? Author Type: Physician Type: Progress Notes Filed: 06/11/2018 2:48 PM Note Text: Radiation Oncology - Follow Up Note PATIENT NAME: Joss Washington PATIENT DIAGNOSIS: ?DCIS of the Right breast, UIQ, pathologic stage 0 (Tis Nx ?M0), ER-positive, FL-positive, s/p partial mastectomy ? ? INTERVAL HISTORY: [...] examination. ? Signed by: Farheen Cronin M.D., [facility] ? cc: Lawrence Rai MD [facility] [place] [address] ? Katherine Downs MD [facility] [address] [place] [address] ? [address]. Berman ? This note was dictated with Jazmin Naturally Speaking and may contain some grammatical errors due to limitations of the software. Dexter De León RN, was present in the examination room throughout the encounter. Normal [facility] CNOVon 02-12-2018 CNOV Office Visit (RADTSA ) JOSS WASHINGTON ([id number]) 1950 F Date Time Provider Department 02/12/18 [...] pathologic stage 0 (Tis Nx ?M0), ER-positive, FL-positive, s/p partial mastectomy ? ? INTERVAL HISTORY: [...] M.D., KAY ? cc: Lawrence Rai MD [facility] [place] [address] ? Katherine Downs MD [facility] [address] [place] [address] ? Dr. Berman ? This note was dictated with Radhaon Naturally Speaking and may contain some grammatical errors due to limitations of the software. Dexter De León RN, was present in the examination room throughout the encounter. Referring Provider: LAWRENCE RAI [[id number]] Allergies As of Date: 02/12/2018 (No Known Allergies) Date Reviewed: 02/12/2018 Reviewed by: Dexter (Rn) CLARA De León [...] by FARHEEN CRONIN MD on 02/12/18 Normal [facility] PROGRESSon 02-12-2018 Protein mass conc HNO ID: [id number] Author: Farheen Cronin Service: (none) Author Type: Physician Type: Progress Notes Filed: 02/12/2018 10:40 AM Note Text: Radiation Oncology - Follow Up Note PATIENT NAME: Joss Washington PATIENT DIAGNOSIS: ?DCIS of the Right breast, UIQ, pathologic stage 0 (Tis Nx ?M0), ER-positive, FL-positive, s/p partial mastectomy ? ? INTERVAL HISTORY: [...] M.D., FACRO ? cc: Lawrence Rai MD [address] [place] [id number] ? Katherine Downs MD [facility] [address] [place] [address] ? Dr. Berman ? This note was dictated with Jazmin Naturally Speaking and may contain some grammatical errors due to limitations of the software. Dexter De León RN, was present in the examination room throughout the encounter. Normal [facility] PROGRESSon 12-10-2017 Protein mass conc HNO ID: [id number] Author: Lisa Willams Service: (none) Author Type: Nurse Practitioner Type: Progress Notes Filed: 12/10/2017 1:24 PM Note Text: HPI Joss Washington is [...] Dr. Downs at this time. Lisa Willams APRN.TELEGRAPH MESSENGER Normal [facility] CNOVon 12-04-2017 CNOV Office Visit (RADTSA ) JOSS WASHINGTON ([id number]) 1950 F Date Time Provider Department 12/04/17 [...] pathologic stage 0 (Tis Nx ?M0), ER-positive, FL-positive, s/p partial mastectomy ? ? INTERVAL HISTORY: [...] examination. ? Signed by: Farheen Cronin M.D., [facility] ? cc: Lawrence Rai MD [address] [place] [id number] ? Katherine Downs MD [facility] [address] [place] [address] ? Dr. Berman ? This note was dictated with Dragon Naturally Speaking and may contain some grammatical errors due to limitations of the software. Anatoliy Ha MA was present in the examination room throughout the encounter. Referring Provider: FARHEEN CRONIN [[id number]] Allergies As of Date: 12/04/2017 (No Known [...] Status:Closed by FARHEEN CRONIN MD on 12/04/17 [facility] CNOVSPon 12-04-2017 CNOVSP Visit (SP) Office (HEMASA) JOSS WASHINGTON ([id number]) 1950 F Date Time Provider Department 12/04/17 11:00 AM LISA WILLAMS (TELEGRAPH MESSENGER) CHRISS During your visit today, we recorded the following information about you: Temperature Pulse Respiration Blood pressure 98.3 degrees 72/minute 16/minute 141/73 Weight 132 kg Lisa Willams APRN.CNP 12/10/2017 1:24 PM Signed HPI Joss Washington [...] Dr. Downs at this time. Lisa Willams APRN.TELEGRAPH MESSENGER Referring Provider: FARHEEN CRONIN [[id number]] Allergies As of Date: 12/04/2017 (No Known [...] breast*INVALID FOR* Encounter Status:Closed by LISA WILLAMS TELEGRAPH MESSENGER on 12/10/17 Normal [facility] PROGRESSon 12-04-2017 Protein mass conc HNO ID: [id number] Author: Farheen Cronin Service: (none) Author Type: Physician Type: Progress Notes Filed: 12/04/2017 1:55 PM Note Text: Radiation Oncology - Follow Up Note PATIENT NAME: Joss Washington PATIENT DIAGNOSIS: DCIS of the Right breast, UIQ, pathologic stage 0 (Tis Nx ?M0), ER-positive, FL-positive, s/p partial mastectomy ? ? INTERVAL HISTORY: [...] M.D., FACRO ? cc: Lawrence Rai MD [address] [place] [id number] ? Katherine Downs MD f Cancer [address] [place] [address] ? Dr. Berman ? This note was dictated with Jazmin Naturally Speaking and may contain some grammatical errors due to limitations of the software. Anatoliy Ha MA was present in the examination room throughout the encounter. Normal [facility] CNOVon 10-30-2017 CNOV Office Visit (RADTSA ) JOSS WASHINGTON ([id number]) 1950 F Date Time Provider Department 10/30/17 [...] pathologic stage 0 (Tis Nx M0), ER-positive, FL-positive, s/p partial mastectomy ? INTERVAL HISTORY: Mrs. [...] Cronin M.D., FACRO cc: Lawrence Rai MD [facility] [place] [address] ? Katherine Downs MD [facility] [address] [place] [address] ? Dr. Berman ? This note was dictated with Dragon Naturally Speaking and may contain some grammatical errors due to limitations of the software. Dexter De León RN was present in the examination room throughout the encounter. Referring Provider: FARHEEN CRONIN [[id number]] Allergies As of Date: 10/30/2017 (No Known Allergies) Date Reviewed: 10/30/2017 Reviewed by: Dexter (Rn) CLARA De León [...] by FARHEEN CRONIN MD on 10/30/17 Normal [facility] PROGRESSon 10-30-2017 Protein mass conc HNO ID: [id number] Author: Farheen Cronin Service: (none) Author Type: Physician Type: Progress Notes Filed: 10/30/2017 3:16 PM Note Text: Radiation Oncology - Follow Up Note PATIENT NAME: Joss Washington PATIENT DIAGNOSIS: DCIS of the Right breast, UIQ, pathologic stage 0 (Tis Nx M0), ER-positive, FL-positive, s/p partial mastectomy ? INTERVAL HISTORY: Mrs. [...] Cronin M.D., FACRO cc: Lawrence Rai MD [facility] [place] [address] ? Katherine Downs MD [facility] [address] [place] [address] ? Dr. Berman ? This note was dictated with Jazmin Naturally Speaking and may contain some grammatical errors due to limitations of the software. Dexter De León RN was present in the examination room throughout the encounter. Normal [facility] PROGRESSon 10-16-2017 Protein mass conc HNO ID: [id number] Author: Farheen Cornin Service: (none) Author Type: Physician Type: Progress Notes Filed: 10/17/2017 12:34 AM Note Text: [facility] Radiation Oncology Department RADIATION ONCOLOGY - COMPLETION NOTE PATIENT: JOSS WASHINGTON : 1950 DATES OF TREATMENT: 08/27/2017 to 10/15/2017 DIAGNOSIS: DCIS of the Right breast, UIQ, pathologic stage 0 (Tis Nx M0), ER-positive, FL-positive, s/p partial mastectomy AREA TREATED: Right Breast [...] JULIETTE 10/16/20179:57 AM cc: Dr. Lawrence Downs Normal [facility] CNOVon 10-14-2017 CNOV Office Visit (RADTSA ) JOSS WASHINGTON ([id number]) 1950 F Date Time Provider Department 10/14/17 [...] the Right?breast, UIQ,?pathologic?stage 0 (Tis Nx M0),?ER-positive, FL-positive, s/p?partial mastectomy ? COURSE: definitive AREA TREATED: [...] Allergies) Date Reviewed: 10/07/2017 Reviewed by: Dexter De León RN - Fully Assessed Reason for Visit: Breast [...] Visit Notes: >> Dexter De León RN loni Oct 14, 2017 10:15 AM Status: Signed Status: Post-menopausal. Dexter De León RN Encounter Status:Closed by FARHEEN CRONIN MD on 10/14/17 Normal [facility] PROGRESSon 10-14-2017 Protein mass conc HNO ID: [id number] Author: Farheen Cronin Service: (none) Author Type: Physician Type: Progress Notes Filed: 10/14/2017 2:16 PM Note Text: Radiation Oncology - On Treatment Review (OTR) Note PATIENT NAME: Joss Washington PATIENT DIAGNOSIS: DCIS?of the Right?breast, UIQ,?pathologic?stage 0 (Tis Nx M0),?ER-positive, FL-positive, s/p?partial mastectomy ? COURSE: definitive AREA TREATED: [...] as planned. ? Farheen Cronin MD? Normal [facility] CNOVon 10-07-2017 CNOV Office Visit (RADTSA ) JOSS WASHINGTON ([id number]) 1950 F Date Time Provider Department 10/07/17 [...] the Right?breast, UIQ,?pathologic?stage 0 (Tis Nx M0),?ER-positive, FL-positive, s/p?partial mastectomy ? COURSE: definitive AREA TREATED: [...] Allergies) Date Reviewed: 10/07/2017 Reviewed by: Dexter De León RN - Fully Assessed Primary Visit Diagnosis:Ductal carcinoma [...] Visit Notes: >> Dexter De León RN loni Oct 07, 2017 10:14 AM Status: Signed Status: Post-menopausal. 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 COURSE: definitive AREA TREATED: [...] as planned. ? Farheen Cronin MD? Normal [facility] CNOVon 09-30-2017 CNOV Office Visit (RADTSA ) JOSS WASHINGTON ([id number]) 1950 F Date Time Provider Department 09/30/17 [...] the Right?breast, UIQ,?pathologic?stage 0 (Tis Nx M0),?ER-positive, FL-positive, s/p?partial mastectomy ? COURSE: definitive AREA TREATED: [...] Visit Notes: >> Anatoliy Ha RN FriSep 30, 2017 10:21 AM Status: Signed Status: Post-menopausal. 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 COURSE: definitive AREA TREATED: [...] as planned. ? Farheen Cronin MD? Normal [facility] CNOVon 09-22-2017 CNOV Office Visit (RADTSA ) JOSS WASHINGTON ([id number]) 1950 F Date Time Provider Department 09/22/17 [...] the Right?breast, UIQ,?pathologic?stage 0 (Tis Nx M0),?ER-positive, FL-positive, s/p?partial mastectomy ? COURSE: definitive AREA TREATED: [...] Visit Notes: >> Anatoliy Ha RN FriSep 22, 2017 10:22 AM Status: Signed Status: Post-menopausal. 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 COURSE: definitive AREA TREATED: [...] treatment as planned. ? Farheen Cronin MD Normal [facility] CBC and Differentialon 09-18 Abs Baso 0.03 k/uL Normal 0.00-0.10 [facility] Abs [place] 0.45 k/uL Normal 0.00-0.86 [facility] Abs Neut 5.16 k/uL Normal 1.45-7.50 [facility] Basophils/100 WBC (Bld) 0.4 % Normal [facility] Eosinophils #/vol (Bld) 0.23 10*3/uL Normal 0.00-0.45 [facility] Eosinophils/100 WBC (Bld) 3.2 % Normal [facility] Erythrocyte distribution width Ratio (RBC) 15.0 % Normal 11.5-15.0 [facility] Hematocrit Volume Fraction (Bld) 39.1 % Normal 36.0-46.0 [facility] Hemoglobin mass conc (Bld) 13.0 g/dL Normal 11.5-15.5 [facility] Lymphocytes #/vol (Bld) 1.40 10*3/uL Normal 1.00-4.00 [facility] Lymphocytes/100 WBC (Bld) 19.3 % Normal [facility] MCH Entitic mass (RBC) 30.6 pG Normal 26.0-34.0 [facility] MCHC mass conc (RBC) 33.2 g/dL Normal 30.5-36.0 [facility] MCV Entitic volume (RBC) 92.0 fL Normal 80.0-100.0 [facility] Monocytes/100 WBC (Bld) 6.2 % Normal [facility] Neutrophils/100 WBC (Bld) 70.9 % Normal [facility] Platelet mean volume Entitic volume (Bld) 9.5 fL Normal 9.0-12.7 [facility] Platelets #/vol (Bld) 272 10*3/uL Normal 150-400 [facility] RBC #/vol (Bld) 4.25 10*6/uL Normal 3.90-5.20 [facility] WBC #/vol (Bld) 7.27 10*3/uL Normal 3.70-11.00 [facility] CNOVon 09-18-2017 CNOV Office Visit (RADTSA ) JOSS WASHINGTON ([id number]) 1950 F Date Time Provider Department 09/18/17 10:10 AM LAB/PORT RADT MACIEJ RICH During your visit today, we recorded [...] De León RN Referring Provider: FARHEEN CRONIN [[id number]] Allergies As of Date: 09/18/2017 (No Known Allergies) Date Reviewed: 09/16/2017 Reviewed by: Dexter AyoubRn) CLARA De León [...] Notes: >> Dexter Sykes) CLARA De León [facility] Sep 18, 2017 10:01 AM Status: Signed [...] Status:Closed by DEXTER DE LEÓN on 09/18/17 [facility] CNOVon 09-16-2017 CNOV Office Visit (RADTSA ) JOSS WASHINGTON ([id number]) 1950 F Date Time Provider Department 09/16/17 [...] the Right?breast, UIQ,?pathologic?stage 0 (Tis Nx M0),?ER-positive, FL-positive, s/p?partial mastectomy ? COURSE: definitive AREA TREATED: [...] Visit Notes: >> Dexter De León RN e Sep 16, 2017 10:51 AM Status: Signed Status: Post-menopausal. 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 COURSE: definitive AREA TREATED: [...] treatment as planned. ? 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 COURSE: definitive AREA TREATED: [...] requiring intervention. Signed by: Jem Santana MD [facility] CNOVon 09-08-2017 CNOV Office Visit (RADTSA ) FELIXJOSS MIX ([id number]) 1950 F Date Time Provider Department 09/08/17 10:15 AM JEM SANTANA During your visit today, we recorded the following information about you: Blood pressure Weight 130/82 130.6 kg Anatoliy Ha LPN, RN 09/08/2017 12:04 PM Signed Status: Post-menopausal. 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 COURSE: definitive AREA TREATED: [...] by JEM SANTANA MD on 09/18/17 Normal [facility] CBC and Differentialon 09-04 Abs Baso 0.03 k/uL Normal <0.11 [facility] Comment on above: Performed By: #### C BCDIF ####[facility] [place], [place] [phone] Abs [place] 0.45 k/uL Normal <0.87 [facility] Comment on above: Performed By: #### C BCDIF ####[place] [address] [address] [place] [phone] Abs Neut 3.74 k/uL Normal 1.45-7.50 [facility] Comment on above: Performed By: #### C BCDIF ####[place] [address] [address] [place] [phone] Basophils/100 WBC (Bld) 0.5 % Normal [facility] Comment on above: Performed By: #### C BCDIF ####[place] [phone] Comment AGC=3.68 Normal [facility] Comment on above: Result Comment: Prel iminary result. Interpret with caution. Final results may vary. Results requested and read back by: /09/04/1710/15/1026/OSITO CASTELLON Performed By: #### C BCDIF ####[place] [phone] Eosinophils #/vol (Bld) 0.23 10*3/uL Normal <0.46 [facility] Comment on above: Performed By: #### C BCDIF ####[address] [place] [phone] Eosinophils/100 WBC (Bld) 3.7 % Normal [facility] Comment on above: Performed By: #### C BCDIF ####[place] [phone] Erythrocyte distribution width Ratio (RBC) 15.5 % High 11.5-15.0 [facility] Comment on above: Performed By: #### C BCDIF ####[place] [phone] Hematocrit Volume Fraction (Bld) 37.1 % Normal 36.0-46.0 [facility] Comment on above: Performed By: #### C BCDIF ####[place] [address] [address], [place] [phone] Hemoglobin mass conc (Bld) 12.2 g/dL Normal 11.5-15.5 [facility] Comment on above: Performed By: #### C BCDIF ####[place] [address] [place], [place] [phone] Lymphocytes #/vol (Bld) 1.78 10*3/uL Normal 1.00-4.00 [facility] Comment on above: Performed By: #### C BCDIF ####[place] [address] [address], [place] [phone] Lymphocytes/100 WBC (Bld) 28.6 % Normal [facility] Comment on above: Performed By: #### C BCDIF ####[address] [place], [place] [phone] MCH Entitic mass (RBC) 30.3 pG Normal 26.0-34.0 [facility] Comment on above: Performed By: #### C BCDIF ####[place] [address] [place] [place] [phone] MCHC mass conc (RBC) 32.9 g/dL Normal 30.5-36.0 [facility] Comment on above: Performed By: #### C BCDIF ####[place] [address] [place] [place] [phone] MCV Entitic volume (RBC) 92.1 fL Normal 80.0-100.0 [facility] Comment on above: Performed By: #### C BCDIF ####[place] [address] [address] [place] [phone] Monocytes/100 WBC (Bld) 7.2 % Normal [facility] Comment on above: Performed By: #### C BCDIF ####[place] [address] [place] [place] [phone] Neutrophils/100 WBC (Bld) 60.0 % Normal [facility] Comment on above: Performed By: #### C BCDIF ####[address] [phone] Platelet mean volume Entitic volume (Bld) 9.3 fL Normal 9.0-12.7 [facility] Comment on above: Performed By: #### C BCDIF ####[address] [phone] Platelets #/vol (Bld) 285 10*3/uL Normal 150-400 [facility] Comment on above: Performed By: #### C BCDIF ####[address] [phone] RBC #/vol (Bld) 4.03 10*6/uL Normal 3.90-5.20 [facility] Comment on above: Performed By: #### C BCDIF ####[address] [phone] WBC #/vol (Bld) 6.19 10*3/uL Normal 3.70-11.00 [facility] Comment on above: Performed By: #### C BCDIF ####[facility] [place] [address] [phone] [place] 09-04-2017 CNOV Office Visit (RADGENAROA ) JOSS WASHINGTON ([id number]) 1950 F Date Time Provider Department 09/04/17 10:00 AM LAB/PORT VIJI RICH During your visit today, we recorded [...] De León RN Referring Provider: FARHEEN CRONIN [[id number]] Allergies As of Date: 09/04/2017 (No Known [...] Visit Notes: >> Dexter De León RN [facility] Sep 04, 2017 12:44 PM Status: Signed Joss Washington presents in office today for: Lab Draw only . Ordering Provider: Farheen Cronin M.D. Test (s) ordered: CBC Method for obtaining blood: Phlebotomy was performed, accessing right antecubital vein. Needle removed intact. Dressing secured. Patient denies discomfort, dizziness, light-headedness or weakness and left the department without assist. Dexter De León RN Encounter Status:Closed by DEXTER DE LEÓN on 09/04/17 [facility] CNOVon 09-02-2017 CNOV Office Visit (RADTSA ) JOSS WASHINGTON ([id number]) 1950 F Date Time Provider Department 09/02/17 10:15 AM FARHEEN CRONIN During your visit today, we recorded the following information about you: Blood pressure Weight 140/82 131.1 kg Anatoliy Ha LPN, RN 09/02/2017 10:14 AM Signed Status: Post-menopausal. Farheen Cronin MD 09/02/2017 1:31 PM Signed Radiation Oncology - On Treatment Review (OTR) Note PATIENT NAME: Joss Washington PATIENT DIAGNOSIS: DCIS of the Right breast, UIQ, pathologic stage 0 (Tis Nx M0), ER-positive, FL-positive, s/p partial mastectomy COURSE: definitive AREA TREATED: [...] right breast*INVALID FOR* Visit Notes: >> Anatoliy (Tube Balancerlamine Ha RN loni Sep 02, 2017 10:09 AM Status: Signed Status: Post-menopausal. Encounter Status:Closed by FARHEEN CRONIN MD on 09/02/17 [facility] PROGRESSon 09-02-2017 Protein mass conc HNO ID: [id number] Author: Farheen Cronin Service: (none) Author Type: Physician Type: Progress Notes Filed: 09/02/2017 1:31 PM Note Text: Radiation Oncology - On Treatment Review (OTR) Note PATIENT NAME: Joss Washington PATIENT DIAGNOSIS: DCIS of the Right breast, UIQ, pathologic stage 0 (Tis Nx M0), ER-positive, FL-positive, s/p partial mastectomy COURSE: definitive AREA TREATED: [...] radiation treatment as planned. Farheen Cronin MD [facility] CNOVon 08-27-2017 CNOV Office Visit (RADTSA ) FELIXJOSS ([id number]) 1950 F Date Time Provider Department 08/27/17 1:30 PM JEM SANTANA During your visit today, we recorded the following information about you: Dexter De León RN, RN 08/27/2017 2:20 PM Signed Status: Post-menopausal. 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 Plan and MU calculations [...] Jem Santana MD Referring Provider: JEM SANTANA [[id number]] Allergies As of Date: 08/27/2017 (No Known [...] Notes: >> Dexter (Clara) CLARA De León FriAugust 27, 2017 2:04 PM Status: Signed Status: Post-menopausal. 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 Plan and MU calculations [...] of treatment. Signed by: Jem Santana MD Normal [facility] CT NON-RADIOLOGY -NBNRo n 08-20-[address] [facility] [address] NON-RADIOLOGY -NBNR [facility] - CT Images - Obtained Outside of Imaging [place] [id number] Normal [facility] CNCNPATEDon 08-20-2017 CNCNPATED Education (RADTSA) JOSS WASHINGTON ([id number]) 1950 F Date Time Provider Department 08/20/17 ANATOLIY HA) RADGENAROA Reason for Visit: Patient Education [91] Visit Notes: >> Anatoliy Ha RN FriAugust 20, 2017 3:46 PM Status: Signed Radiation Therapy - Patient Education Note PATIENT NAME: Joss Washington PATIENT August 20, 2017 [facility] FACILITY/LOCATION: [facility] READINESS TO LEARN Cognitive [...] need for social work, van service, and waterproof bag sewer. Was approved? No Signed by: Anatoliy Ha [...] Encounter Status:Closed by ANATOLIY HA on 08/20/17 [facility] CNOVon 08-20-2017 CNOV Office Visit (RADTSA ) JOSS WASHINGTON ([id number]) 1950 F Date Time Provider Department 08/20/17 [...] pathologic stage 0 (Tis Nx M0), ER-positive, FL-positive, s/p partial mastectomy. HPI: 67 year old [...] with her . 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 COMPLETE REVIEW [...] Farheen Cronin MD cc: Lawrence Rai MD [address] [place], [place] [id number] Katherine Downs MD [facility] [address] [place] [address] Dr. Berman This note was dictated with Dragon Naturally Speaking and may contain some grammatical errors due to limitations of the software. Referring Provider: KATHERINE DOWNS [[id number]] Allergies As of Date: 08/20/2017 (No Known [...] by FARHEEN CRONIN MD on 08/20/17 Normal [facility] PROGRESSon 08-20-2017 Protein mass conc HNO ID: [id number] Author: Farheen Cronin Service: (none) Author Type: Physician Type: Progress Notes Filed: 08/20/2017 3:39 PM Note Text: Radiation Oncology - New Patient/Consult Note PATIENT NAME: Joss Washington PATIENT REQUESTING PROVIDER: Dr. Katherine Downs DIAGNOSIS: 67 year old female with DCIS of the Right breast, UIQ, pathologic stage 0 (Tis Nx M0), ER-positive, FL-positive, s/p partial mastectomy. HPI: 67 year old [...] with her . 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 COMPLETE REVIEW [...] Farheen Cronin MD cc: Lawrence Rai MD [address] [place] [address] [place] [address] Katherine Downs MD [facility] [address] [place] [address] Dr. Berman This note was dictated with Dragon Naturally Speaking and may contain some grammatical errors due to limitations of the software. Normal [facility] Protein [facility] conc HNO ID: [id number] Author: Farheen Cronin Service: (none) Author Type: Physician Type: Progress Notes Filed: 08/21/2017 12:34 AM Note Text: FELIX JOSS [id number] 08/20/2017 [facility] Radiation Oncology Department SIMULATION NOTE DATE OF SIMULATION: 08/20/2017 THERAPIST: Yuliana Gill MACHINE: [employer] Simulator DIAGNOSIS: Malignant neoplasm of upper-inner quadrant of right female [id number] AREA: CONTRAST: None Consent in Epic: Yes [...] Cronin M.D. / NRS 08/20/20173:59 PM Normal [facility] Protein [facility] conc HNO ID: [id number] Author: Farheen Cronin Service: (none) Author Type: Physician Type: Progress Notes Filed: 08/27/2017 12:34 AM Note Text: JOSS WASHINGTON [id number] 08/20/2017 [facility] Department of Radiation Oncology Treatment [...] Signed Farheen Cronin M.D. 08/26/20171:02 PM Normal [facility] CNOVSPon 08-14-2017 CNOVSP Visit (SP) Office (HEMACL) JOSS WASHINGTON ([id number]) 1950 F Date Time Provider Department 08/14/17 1:45 PM KATHERINE DOWNS During your visit today, we recorded the following information about you: Temperature Pulse Respiration Blood pressure 98.3 degrees 71/minute 18/minute 150/68 Weight Height 132.2 kg 1.6 m Katherine Downs MD 08/14/2017 2:27 PM Signed HPI Joss Corea Felix is a 67 year old female who [...] Katherine Downs MD Referring Provider: GEREMIAS BERMAN [[id number]] Allergies As of Date: 08/14/2017 (No Known Allergies) Date Reviewed: 08/14/2017 Reviewed by: Iesha Luis - Fully Assessed Primary Visit Diagnosis:Ductal carcinoma in situ (DCIS) of right breast [D05.11] Order(s):RAD/ONC CONSULT [9037] Order #: [id number]: 1 Prescriptions as of 08/14/2017 Sig: VENTOLIN [...] by KATHERINE DOWNS MD on 08/14/17 Normal [facility] PROGRESSon 08-14-2017 Protein mass conc HNO ID: [id number] Author: Katherine Downs Service: (none) Author Type: [...] needed. - RAD/ONC CONSULT Katherine Downs MD Normal [facility] US-US GUIDE LOCAL BREAST RT IMPORTon 07-04-2017 US-US GUIDE LOCAL BREAST RT IMPORT Images were obtained outside of [facility] [id number] Normal [facility] MAMM OUTSIDE DICOM IMPORT -N BNRon 06-18-2017 MAMM OUTSIDE DICOM IMPORT -NBNR Images were obtained outside of [facility] [id number] Normal [facility] Encounters Encounter Date Encounter Type Care Provider Facility Start: 05-07-2024 End: 05-07-2024 ambulatory JOHN YIN [facility] Start: 03-16-2022 End: 03-17-[address] LAWRENCE RAI Facility:[facility] Start: 02-28-[address] [facility] Facility :[facility] Start: 02-08-2022 End: 02-09-[address] [facility] Facility:[facility] Start: 11-30-2021 End: 12-01-[address] [facility] Facility:[facility] Start: 06-11-2018 End: 06-15-2018 Patient encounter procedure FARHEEN CRONIN [facility] Start: 02-12-2018 End: 02-13-2018 Patient encounter procedure FARHEEN CRONIN [facility] Start: 12-04-2017 End: 12-11-2017 Patient encounter procedure LISA (TELEGRAPH MESSENGER) ЕКАТЕРИНА [facility] Start: 10-30-2017 End: 10-30-2017 Patient encounter procedure FARHEEN CRONIN [facility] Start: 10-15-2017 End: 10-20-2017 Patient encounter procedure KATHERINE DOWNS [facility] Start: 10-14-2017 End: 10-14-2017 Patient encounter procedure FARHEEN CRONIN [facility] Start: 10-13-2017 End: 10-15-2017 Patient encounter procedure KATHERINE DOWNS [facility] Start: 10-09-2017 End: 10-30-2017 Patient encounter procedure KATHERINE DOWNS [facility] Start: 10-08-2017 End: 10-10-2017 Patient encounter procedure KATHERINE DOWNS [facility] Start: 10-07-2017 End: 10-07-2017 Patient encounter procedure FARHEEN CRONIN [facility] Start: 10-06-2017 End: 10-10-2017 Patient encounter procedure KATHERINE DOWNS [facility] Start: 10-03-2017 End: 10-08-2017 Patient encounter procedure KATHERINE DOWNS [facility] Start: 10-02-2017 End: 10-20-2017 Patient encounter procedure KATHERINE DOWNS [facility] Start: 09-30-2017 End: 09-30-2017 Patient encounter procedure FARHEEN CRONIN [facility] Start: 09-29-2017 End: 10-06-2017 Patient encounter procedure KATHERINE DOWNS [facility] Start: 09-26-2017 End: 10-02-2017 Patient encounter procedure KATHERINE DOWNS [facility] Start: 09-25-2017 End: 09-29-2017 Patient encounter procedure KATHERINE DOWNS [facility] Start: 09-24-2017 End: 10-06-2017 Patient encounter procedure KATHERINE DOWNS [facility] Start: 09-23-2017 End: 09-29-2017 Patient encounter procedure KATHERINE DOWNS [facility] Start: 09-22-2017 End: 09-22-2017 Patient encounter procedure FARHEEN CRONIN [facility] Start: 09-19-2017 End: 09-22-2017 Patient encounter procedure KATHERINE DOWNS [facility] Start: 09-18-2017 End: 09-18-2017 Patient encounter procedure FARHEEN CRONIN [facility] Start: 09-17-2017 End: 09-30-2017 Patient encounter procedure KATHERINE DOWNS [facility] Start: 09-16-2017 End: 09-16-2017 Patient encounter procedure FARHEEN CRONIN [facility] Start: 09-15-2017 End: 09-17-2017 Patient encounter procedure KATHERINE DOWNS [facility] Start: 09-12-2017 End: 09-17-2017 Patient encounter procedure KATHERINE DOWNS [facility] Start: 09-11-2017 End: 09-15-2017 Patient encounter procedure KATHERINE DOWNS [facility] Start: 09-10-2017 End: 09-22-2017 Patient encounter procedure KATHERINE DOWNS [facility] Start: 09-09-2017 End: 09-15-2017 Patient encounter procedure KATHERINE DOWNS [facility] Start: 09-08-2017 End: 09-08-2017 Patient encounter procedure JEM SANTANA [facility] Start: 09-05-2017 End: 09-15-2017 Patient encounter procedure KATHERINE DOWNS [facility] Start: 09-04-2017 End: 09-04-2017 Patient encounter procedure FARHEEN CRONIN [facility] Start: 09-03-2017 End: 09-15-2017 Patient encounter procedure KATHERINE DOWNS [facility] Start: 09-02-2017 End: 09-02-2017 Patient encounter procedure FARHEEN CRONIN [facility] Start: 09-01-2017 End: 09-04-2017 Patient encounter procedure KATHERINE DOWNS [facility] Start: 08-29-2017 End: 09-01-2017 Patient encounter procedure KATHERINE DOWNS [facility] Start: 08-28-2017 End: 09-01-2017 Patient encounter procedure KATHERINE DOWNS [facility] Start: 08-27-2017 End: 08-27-2017 Patient encounter procedure JEM SANTANA [facility] Start: 08-20-2017 End: 08-21-2017 Patient encounter procedure FARHEEN CRONIN [facility] Start: 08-14-2017 End: 08-15-2017 [facility] Payers Date Payer Category Payer Medicare [id number] 1958 Self-pay [id number] 1958 Unknown [id number] 1950 Unknown [id number] 1950 Unknown [id number] 1950 Unknown [id number] 1950 Unknown [id number] Progress note 05-07-2024 Note Date & Type Note Facility 05-07-2024 Note [facility] Note Reason for cardiology consult: TIA Chief Complaint: dyspnea on exertion HPI: Joss Washington is a 73 y.o. female with history of hypertension, hyperlipidemia, recent TIA, and right breast cancer Patient presented to [facility] on 03/18/2024 with vision changes which lasted about 30 minutes to 1 hour. According to her report her blood pressure was significantly elevated on arrival to the emergency room. She found out that one of her blood pressure medications has . She did not have any similar symptoms since then. She reports that years ago she had palpitation and she was told that she had mitral valve prolapse. She admits occasional flip-flopping but not frequent and not lasting longer. She denies dizziness, syncope or near syncope. She admits dyspnea on exertion but she attributes to her overweight. She denies any chest discomfort at rest or with exertion. She denies orthopnea or paroxysmal nocturnal dyspnea. She denies leg edema or leg discomfort on exertion. She admits snoring. Her never noticed that she stops breathing during the night. She denies being sleepy or tired during the daytime. She quit smoking 46 years ago. She denies alcohol or illicit drugs Regarding family history both parents had hypertension, Mother had stroke Cardiology ROS: GENERAL: Denies fever, chills, night sweats, weight loss. HEENT: Denies changes in vision, photophobia, changes in hearing, epistaxis, oral bleeding. CARDIOVASCULAR: She reports exertional dyspnea, denies chest pain, orthopnea/PND, lower extremity edema, palpitations, lightheadedness/dizziness. RESPIRATORY: Denies coughing, wheezing GI: Denies abdominal pain, nausea/vomiting, heartburn, melena/hematochezia. RENAL: Denies dysuria, hematuria, flank pain. MSK: Denies muscle weakness/pain, arthralgias/joint pain. NEUROLOGIC: Denies LOC, weakness, numbness, headaches. SKIN: Denies abnormal rashes or bleeding. PSYCH: Denies significant anxiety, depression, sleep disturbances. Past Medical History She has a past medical history of Hyperlipidemia, Hypertension, and TIA (transient ischemic attack). She has no past medical history of Stroke ([facility]). Surgical History She has a past surgical history that includes Cholecystectomy; Hysterectomy; Hernia repair; Shoulder surgery; and Tonsillectomy. Social History She reports that she has quit smoking. Her smoking use included cigarettes. She has never used smokeless tobacco. She reports that she does not currently use alcohol. No history on file for drug use. Family History Family History Problem Relation Name Age of Onset Hypertension Mother Stroke Mother Hyperlipidemia Mother Hypertension Father Coronary artery disease Father Hyperlipidemia Father Cancer Father Allergies Patient has no known allergies. Medications Current Outpatient Medications: clopidogrel (Plavix) 75 mg tablet, Take 75 mg by mouth in the morning., Disp: , Rfl: dilTIAZem (Cardizem) 120 mg immediate release tablet, Take 120 mg by mouth in the morning and at bedtime., Disp: , Rfl: lisinopril 40 mg tablet, Take 1 tablet by mouth in the morning., Disp: , Rfl: simvastatin (Zocor) 20 mg tablet, Take 20 mg by mouth at bedtime., Disp: , Rfl: Last Recorded Vitals Visit Vitals BP 151/83 (BP Location: Right wrist, Patient Position: Sitting) Pulse 67 Ht 1.6 m (5' 3 ) Wt (!) 137 kg (302 lb) SpO2 97% BMI 53.50 kg/m??? Smoking Status Former BSA 2.47 m??? Physical Examination: GENERAL: alert and oriented x3, well developed, in no acute distress. HEAD: atraumatic, normocephalic. EYES: JEROMY, EOMI. NECK: trachea midline, no JVD present, no carotid bruits present. CARDIAC: S1, S2 present. RRR. No murmur, rubs, or gallops. RESPIRATORY: CTAB, no increased effort of breathing, no rales, rhonchi, or wheezing. ABDOMEN: soft, nontender, nondistended. EXTREMITIES: no lower extremity edema, peripheral pulses are 2+ bilaterally. No rash/skin discoloration present. NEURO: strength/sensation equal and symmetric in bilateral upper and lower extremities. PSYCH: appropriate mood, affect, and judgement. Labs: 03/18/2024 1 blood count 8.6, hemoglobin 12.3, hematocrit 39.1, platelets 292 INR 0.96 Sodium 143, potassium 3.8, BUN 16, creatinine 0.97, GFR above 60, glucose 84, calcium 9.1 Total bilirubin 0.3, AST 14, ALT 20, alk phos 135, total protein 7.3, albumin 3.1 01/05/2024 HbA1c 6% Triglyceride 133, cholesterol 253, LDL 152, HDL 75 TSH 3.668, free T45.4, free T32.01 Last Images: EKG 03/18/2024 showed normal sinus rhythm, nonspecific T wave changes Echo 03/19/2024 Neck and head CTA 03/18/[address] 03/18/2024 7-day Holter monitor 03/19/2024 Reviewing the strips myself there was only 2 episodes of SVT the longest was 12 beats, both of them represented atrial tachycardia Assessment and Plan: Recent TIA, no ische (more content not included)... [facility] Summary Purpose Family History No Family History Records FoundNo Family History Records FoundNo Family History Records FoundNo Family History Records Found Advance Directives No Advanced Directives Records FoundNo Advanced Directives Records FoundNo Advanced Directives Records FoundNo Advanced Directives Records Found Additional Source Comments INFORMATION SOURCE (unrecogn ized section and content) DATE CREATED AUTHOR 06/15/2018 [facility] DATE CREATED AUTHOR AUTHOR'S ORGANIZ ATION 07/26/2019 [facility] DATE CREATED AUTHOR AUTHOR'S ORGANIZ ATION 03/22/2022 [facility] DATE CREATED AUTHOR AUTHOR'S ORGANIZ ATION 05/09/2024 [facility] FOR RECORDS PERTAINING TO PATIENTS WHO ARE [...] BE BASED ON THE PRIMARY CLINICAL RECORDS. [facility]. provides no warranty or guarantee of the accuracy or completeness of information in this document.
--- NOTE | 2024-05-14 07:45 | CA_ITS ---
Patient Name: JOSS WASHINGTON MR#: [id number] : 1950 Exam Date: 05/14/2024 Ordering Doctor: DR. JOHN YIN M.D. ECHOCARDIOGRAM REPORT PROCEDURE: CA ECHO LIMITED INDICATIONS: Cardiac thrombus or embolic source suspected COMPARISON: None. DESCRIPTION: Limited ECHOCARDIOGRAM Real-time transthoracic echocardiography with 2D and M-mode performed. QUALITY: Technical quality was good. Limited echocardiogram per physician order. LEFT VENTRICLE: Normal chamber size. Normal left ventricular wall thickness. LV EF: Normal left ventricular ejection fraction, (>55%). DIASTOLIC: ATRIAL SEPTUM: Agitated saline contrast does not reveal an intra-cardiac shunt. LEFT ATRIUM: Normal chamber size. RIGHT ATRIUM: Normal chamber size. RIGHT VENTRICLE: Normal chamber size. TRICUSPID VALVE: Normal mobility and thickness. MITRAL VALVE: Normal mobility and thickness. There is no mitral annular calcification. AORTIC VALVE: Normal trileaflet appearance. No visible sclerosis. Normal leaflet mobility. AORTIC ROOT: Normal diameter and appearance. PULMONIC VALVE: Normal thickness and mobility. PERICARDIUM: No evidence of pericardial effusion. IVC: PLEURA: CONCLUSION: 1. Normal ventricular size and systolic function. LVEF is 60%. 2. Agitated saline contrast does not reveal an intra-cardiac shunt. 3. Limited study performed with no Doppler interrogation as requested. Adult Echocardiography Procedure Report Left Ventricle LVEDD (3.7 - 5.6 cm): 4.90 cm LVESD (2.2 - 4.0 cm): 2.69 cm LVIVS thickness (0.6 - 1.2 cm): 0.83 cm LVPW thickness (0.5 - 1.0 cm): 0.90 cm LVOT Diameter 2.07 cm Left Atrium LA Volume Index (2D A2C): 25.21 ml/m2 Left Atrium Systolic Dimension: 3.98 cm Mitral Valve Right Ventricle Aorta AO Root Diam: 3.39 cm Aortic Valve Tricuspid Valve Pulmonic Valve Right Atrium Right Atrium Systolic Pressure: 46.48 ml, 46.48 ml Dictated by: Tyree Mir M.D. on 05/14/2024 at 18:35 Approved by: Tyree Mir M.D. on 05/14/2024 at 18:37
[2024-05-14 08:26] LABS: Chol HDL Ratio 2.5; Cholesterol 187 mg/dL (<=200); HDL Cholesterol 76 mg/dL (40-60); Triglycerides 135 mg/dL (<=150)
[2024-05-14 08:39] LABS: Alanine Aminotransferase 22 U/L (14-59); Aspartate Amino Transferase 17 U/L (15-37)
== END 2024-05-14 07:22 | disposition home or self-care (01) ==
LOC: CARD 07:22
PROVIDERS: PCP Family Medicine; Visit Provider Internal Medicine Cardiovascular Disease
DX: G45.9 Transient cerebral ischemic attack, unspecified (principal); E78.5 Hyperlipidemia, unspecified
CPT/HCPCS: 36415; 80061; 84450; 84460; 93308

== ENCOUNTER 2024-05-31 08:03 | Outpatient (OUT) | payer MEDICARE, OTHER, SELFPAY ==
[2024-05-31 08:19] LABS: Estimated GFR (African America 57 (>=60 mL/min/1.73m^2); Estimated GFR (Non-African Ame 47 (>=60 mL/min/1.73m^2)
--- OUTSIDE RECORDS SUMMARY | 2024-05-31 08:19 | XMS_ITS | CCD ---
Author Organization [facility] Care Team Providers Care Miniature Set Builder Name Role Phone KATHERINE DOWNS Attending Unavailable [...] CRONIN, KHALID R Referring Unavailable LISA WILLAMS ([facility]) Attending Unavailabl e CRONIN, KHALID R Referring [...] Range Facility Office Visiton 05-07-2024 Follow-up visit [id number] Joss Washington 1950 F Date Provider Department Center 05/07/2024 [id number] YIN [facility] Family History Problem Relation Age of Onset Hypertension Mother Stroke Mother Hyperlipidemia Mother Hypertension Father Coronary artery disease Father Hyperlipidemia Father Cancer Father Family Status - Relation Status Age at Mother Father Level of Service:31718 NC OFFICE/OUTPATIENT NEW MODERATE MDM 45 MINUTES Reason for Visit and Comments: Chest Pain [942438] - Patient describes it as chest discomfort . Says she was told 40+ years ago that she had mitral valve prolapse. Echo was done with recent admission. Hypertension [436571] - She was admitted to [facility] in Feb 2024 for TIA and hypertension. Hyperlipidemia [182] Shortness of Breath [] - C/o MORENO. Palpitations [] - She wore 7 day Holter after hospital admission. She is currently wearing a 30 day event monitor. Normal [facility] XR SHOULDER LT 2V or >on XR [...] by: LIBIA GIBBS Date: 2022-03-17 13:31 Normal [facility] MG MAMM ABHAY DIAG W CADon MG MAMM ABHAY DIAG W CAD Patient: JOSS WASHINGTON. Exam Date: 02/08/2022 : 1950 Gender:F Ordering : DR LAWRENCE RAI . Admission #: [id number] Family : Order #: [id number] CLICK HERE TO VIEW EXAM RADIOLOGY REPORT [...] brain cancer at age 69. LOCATION: [facility] BREAST COMPOSITION: Scattered areas fibroglandular density. FINDINGS: [...] M.D. on 02/08/2022 at 08:46 Normal [facility] T4, T3U, FTI LABCORPon 12-01 Free Thyroxine Index 1.7 Normal 1.2-4.9 [facility] Comment on above: Performed By: #### T HYLC #### [facility] [address] [place], [place] [address] Dr. Sheldon Cordero T3 Uptake 27 % Normal 24-39 [facility] Comment on above: Performed By: #### T HYLC #### [facility] [address] [place], [place] [address] Dr. Sheldon Cordero T4 [Mass/Vol] 6.4 ug/dL Normal 4.5-12.0 [facility] Comment on above: Performed By: #### T HYLC #### [facility] [address] [place] [address] [address] Sheldon Cordero CBC AUTO DIFFon 11-30-2021 BASO # 0.1 103/ul Normal 0.0-0.1 [facility] Comment on above: Performed By: #### C BC #### [facility] [address] [address] [address] Sheldon Cordero Basophils/100 WBC (Bld) 0.8 % Normal 0.2-2.0 [facility] Comment on above: Performed By: #### C BC #### [facility] [address] [address] [address] Sheldon Cordero EO # 0.3 103/ul Normal 0.0-0.7 [facility] Comment on above: Performed By: #### C BC #### [facility] [address] [place] [address] Dr. Sheldon Cordero Eosinophils/100 WBC (Bld) 3.8 % Normal 0.9-7.0 [facility] Comment on above: Performed By: #### C BC #### [facility] [address] [address] [address] Sheldon Cordero Erythrocyte distribution width (RBC) [Ratio] 14.6 % Normal 11.0-15.0 [facility] Comment on above: Performed By: #### C BC #### [facility] [address] [place] [address] Dr. Sheldon Cordero Hematocrit (Bld) [Volume fraction] 39.3 % Normal 36.0-48.0 [facility] Comment on above: Performed By: #### C BC #### [facility] [address] [address] [address] Sheldon Cordero Hemoglobin (Bld) [Mass/Vol] 12.4 g/dL Normal 12.0-16.0 [facility] Comment on above: Performed By: #### C BC #### [facility] [address] [address] [address] Sheldon Cordero IG # 0.08 10e3/ul Critically high 0.00-0.03 [facility] Comment on above: Performed By: #### C BC #### [facility] [address] [place] [address] Dr. Sheldon Cordero IG % 1.1 % Critically high 0.0-0.5 [facility] Comment on above: Performed By: #### C BC #### [facility] [address] [place] [address] Dr. Sheldon Cordero LYMPH # 1.8 103/ul Normal 1.2-3.8 [facility] Comment on above: Performed By: #### C BC #### [facility] [address] [place] [address] Dr. Sheldon Cordero Lymphocytes/100 WBC (Bld) 25.1 % Normal 20.5-60.0 [facility] Comment on above: Performed By: #### C BC #### [facility] [address] [place] [address] Dr. Sheldon Cordero MANUAL DIFF REQ NO Normal [facility] Comment on above: Performed By: #### C BC #### [facility] [address] [place] [address] Dr. Sheldon Cordero MCH (RBC) [Entitic mass] 29.6 pg Normal 26.7-34.0 [facility] Comment on above: Performed By: #### C BC #### [facility] [address] [place] [address] Dr. Sheldon Cordero MCHC (RBC) [Mass/Vol] 31.6 g/dL Normal 29.9-35.2 [facility] Comment on above: Performed By: #### C BC #### [facility] [address] [place] [address] Dr. Sheldon Cordero MCV (RBC) [Entitic vol] 93.8 fL Normal 81.0-99.0 [facility] Comment on above: Performed By: #### C BC #### [facility] [address] [place] [address] Dr. Sheldon Cordero MONO # 0.4 103/ul Normal 0.3-0.8 [facility] Comment on above: Performed By: #### C BC #### [facility] [address] [address] [address] Sheldon Cordero Monocytes/100 WBC (Bld) 5.8 % Normal 1.7-12.0 [facility] Comment on above: Performed By: #### C BC #### [facility] [address] [address] [address] Sheldon Cordero NEUT # 4.6 103/ul Normal 1.4-6.5 [facility] Comment on above: Performed By: #### C BC #### [facility] [address] [address] [address] Sheldon Cordero Neutrophils/100 WBC (Bld) 63.4 % Normal 43.0-75.0 [facility] Comment on above: Performed By: #### C BC #### [facility] [address] [place] [address] Dr. Sheldon Cordero Platelet mean volume (Bld) [Entitic vol] 8.9 fL Critically low 9.5-13.5 [facility] Comment on above: Performed By: #### C BC #### [facility] [address] [place] [address] Dr. Sheldon Cordero PLT 277 103/ul Normal 150-450 [facility] Comment on above: Performed By: #### C BC #### [facility] [address] [place] [address] Dr. Sheldon Cordero RBC 4.19 106/ul Critically low 4.20-5.40 [facility] Comment on above: Performed By: #### C BC #### [facility] [address] [place] [address] Dr. Sheldon Cordero WBC 7.2 103/ul Normal 4.0-11.0 [facility] Comment on above: Performed By: #### C BC #### [facility] [address] [place] [address] Dr. Sheldon Cordero GLYCOHEMOGLOBIN A1Con 2021 ADA RECOMMENDATION SEE BELOW Normal [facility] Comment on above: Result Comment: ADA RECOMMENDED LIMIT 4.0 - 6.0 ADA THERAPEUTIC TARGET < 7.0 ACTION SUGGESTED > 7.0 Performed By: #### A 1C #### [facility] [address] [address] [address] Sheldon Cordero Glucose [Mass/Vol] 128 mg/dL Normal [facility] Comment on above: Performed By: #### A 1C #### [facility] [address] [address] [address] Sheldon Cordero HbA1c (Bld) [Mass fraction] 6.1 % Normal 4.5-6.2 [facility] Comment on above: Performed By: #### A 1C #### [facility] [address] [place] [address] Dr. Sheldon Cordero IRONon 11-30-2021 Iron [Mass/Vol] 58.0 ug/dL Normal 50.0-170.0 [facility] Comment on above: Performed By: #### I GERMAN #### [facility] [address] [place] [address] Dr. Sheldon Cordero LIPID PROFILEon 11-30-2021 CHOL-HDL RATIO NORM SEE BELOW Normal [facility] Comment on above: Result Comment: 3.3 - 4.4 LOW RISK 4.4 - 7.1 AVERAGE RISK 7.1 - 11.0 MODERATE RISK >11.0 HIGH RISK Performed By: #### L IPID, TSH, CMP #### [facility] [address] [place] [address] Dr. Sheldon Cordero Cholesterol [Mass/Vol] 251 mg/dL Critically high <=200 [facility] Comment on above: Performed By: #### L IPID, TSH, CMP #### [facility] [address] [place] [address] Dr. Sheldon Cordero Cholesterol in HDL [Mass/Vol] 70 mg/dL Critically high 40-60 [facility] Comment on above: Performed By: #### L IPID, TSH, CMP #### [facility] [address] [place] [address] Dr. Sheldon Cordero Cholesterol in LDL [Mass/Vol] 161.4 mg/dL Normal [facility] Comment on above: Performed By: #### L IPID, TSH, CMP #### [facility] [address] [address] [address] Sheldon Cordero Cholesterol.total/Ch olesterol in HDL [Mass ratio] 3.6 {ratio} Normal [facility] Comment on above: Performed By: #### L IPID, TSH, CMP #### [facility] [address] [address] [address] Sheldon Cordero HDL NORMAL > or = 60 mg/dl - LO W CARDIOVASCULAR RISK <40 mg/dl - HIGH CARDIOVASCULAR RISK Normal [facility] Comment on above: Performed By: #### L IPID, TSH, CMP #### [facility] [address] [address] [address] Sheldon Cordero LDL CALC NORMAL SEE BELOW Normal [facility] Comment on above: Result Comment: <100 mg/dl OPTIMAL 100 - 129 mg/dl NEAR OR ABOVE OPTIMAL 130 - 159 mg/dl BORDERLINE HIGH 160 - 189 mg/dl HIGH >190 mg/dl VERY HIGH Performed By: #### L IPID, TSH, CMP #### [facility] [address] [address] [address] Sheldon Cordero Triglyceride [Mass/Vol] 98 mg/dL Normal <=150 [facility] Comment on above: Performed By: #### L IPID, TSH, CMP #### [facility] [address] [place] [address] Dr. Sheldon Cordero VLDL CALC 19.6 mg/dL Normal [facility] Comment on above: Performed By: #### L IPID, TSH, CMP #### [facility] [address] [address] [address] Sheldon Cordero PROF 14(COMP METB)on 022 Albumin [Mass/Vol] 3.4 g/dL Normal 3.4-5.0 [facility] Comment on above: Performed By: #### L IPID, TSH, CMP #### [facility] [address] [place] [address] Dr. Sheldon Cordero Albumin/Globulin [Mass ratio] 0.9 {ratio} Normal [facility] Comment on above: Performed By: #### L IPID, TSH, CMP #### [facility] [address] [address] [address] Sheldon Cordero ALP [Catalytic activity/Vol] 107 U/L Normal 46-116 [facility] Comment on above: Performed By: #### L IPID, TSH, CMP #### [facility] [address] [address] [address] Sheldon Cordero ALT [Catalytic activity/Vol] 17 U/L Normal 14-59 [facility] Comment on above: Performed By: #### L IPID, TSH, CMP #### [facility] [address] [address] [address] Sheldon Cordero Anion gap [Moles/Vol] 10.9 mmol/L Normal [facility] Comment on above: Performed By: #### L IPID, TSH, CMP #### [facility] [address] [address] [address] Sheldon Cordero AST [Catalytic activity/Vol] 11 U/L Critically low 15-37 [facility] Comment on above: Performed By: #### L IPID, TSH, CMP #### [facility] [address] [address] [address] Sheldon Cordero Bilirubin [Mass/Vol] 0.3 mg/dL Normal 0.2-1.0 [facility] Comment on above: Performed By: #### L IPID, TSH, CMP #### [facility] [address] [address] [address] Sheldon Cordero Calcium [Mass/Vol] 9.1 mg/dL Normal 8.5-10.1 [facility] Comment on above: Performed By: #### L IPID, TSH, CMP #### [facility] [address] [address] [address] Sheldon Cordero Chloride [Moles/Vol] 106 mmol/L Normal 98-107 [facility] Comment on above: Performed By: #### L IPID, TSH, CMP #### [facility] [address] [address] [address] Sheldon Cordero CO2 [Moles/Vol] 30.6 mmol/L Normal 21.0-32.0 [facility] Comment on above: Performed By: #### L IPID, TSH, CMP #### [facility] [address] [address] [address] Sheldon Cordero Creatinine [Mass/Vol] 0.93 mg/dL Normal 0.55-1.02 [facility] Comment on above: Performed By: #### L IPID, TSH, CMP #### [facility] [address] [address] [address] Sheldon Cordero EGFR-AF ITALIAN >60 Normal >=60 [facility] Comment on above: Performed By: #### L IPID, TSH, CMP #### [facility] [address] [address] [address] Sheldon Cordero EGFR-NON AF ITALIAN =60 Normal >=60 [facility] Comment on above: Performed By: #### L IPID, TSH, CMP #### [facility] [address] [address] [address] Sheldon Cordero Globulin (S) [Mass/Vol] 4.0 g/dL Normal [facility] Comment on above: Performed By: #### L IPID, TSH, CMP #### [facility] [address] [address] [address] Sheldon Cordero Glucose [Mass/Vol] 101 mg/dL Normal 74-106 [facility] Comment on above: Performed By: #### L IPID, TSH, CMP #### [facility] [address] [address] [address] Sheldon Cordero Potassium [Moles/Vol] 4.5 mmol/L Normal 3.5-5.1 [facility] Comment on above: Performed By: #### L IPID, TSH, CMP #### [facility] [address] [address] [address] Sheldon Cordero Protein [Mass/Vol] 7.4 g/dL Normal 6.4-8.2 [facility] Comment on above: Performed By: #### L IPID, TSH, CMP #### [facility] [address] [address] [address] Sheldon Cordero Sodium [Moles/Vol] 143 mmol/L Normal 136-145 [facility] Comment on above: Performed By: #### L IPID, TSH, CMP #### [facility] [address] [place] [address] Dr. Sheldon Cordero Urea nitrogen [Mass/Vol] 18.0 mg/dL Normal 7.0-18.0 [facility] Comment on above: Performed By: #### L IPID, TSH, CMP #### [facility] [address] [address] [address] Sheldon Cordero Urea nitrogen/Creatinine [Mass ratio] 19.4 mg/mg Normal [facility] Comment on above: Performed By: #### L IPID TSH, CMP #### [facility] [address] [place] [address] Dr. Sheldon Cordero TSHon 11-30-2021 TSH 2.774 uIU/mL Normal 0.358-3.740 [facility] Comment on above: Performed By: #### L IPID, TSH, CMP #### [facility] [address] [place] [address] Dr. Sheldon Cordero Lactic Acidon 11-02-2018 Lactate [Mass/Vol] 7.5 mg/dL Normal 4.5-19.8 [facility] Comment on above: Performed By: #### 2 [id number] #### [facility] [address] [place] [address] CNOVon 06-11-2018 CNOV Office Visit (YOVANNYA ) JOSS WASHINGTON ([id number]) 1950 F Date Time Provider Department 06/11/18 [...] pathologic stage 0 (Tis Nx ?M0), ER-positive, NC-positive, s/p partial mastectomy ? ? INTERVAL HISTORY: [...] M.D., FACRO ? cc: Lawrence Rai MD [address] [place] [address] ? Katherine Downs MD [facility] [address] [place] [address] [place] [address] ? Dr. Berman ? This note was dictated with Jazmin Naturally Speaking and may contain some grammatical errors due to limitations of the software. Dexter De León RN, was present in the examination room throughout the encounter. 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 Author Type: Physician Type: Progress Notes Filed: 06/11/2018 2:48 PM Note Text: Radiation Oncology - Follow Up Note PATIENT NAME: Joss Washington PATIENT DIAGNOSIS: ?DCIS of the Right breast, UIQ, pathologic stage 0 (Tis Nx ?M0), ER-positive, NC-positive, s/p partial mastectomy ? ? INTERVAL HISTORY: [...] examination. ? Signed by: Farheen Cronin M.D., [facility] ? cc: Lawrence Rai MD [facility] [place] [address] ? Katherine Downs MD [facility] [address] [place] [address] ? Dr. Berman ? This note was dictated with Jazmin Naturally Speaking and may contain some grammatical errors due to limitations of the software. Dexter De León RN, was present in the examination room throughout the encounter. Normal [facility] CNOVon 02-12-2018 CNOV Office Visit (RADTSA ) JOSS WASHINGTON ([id number]) 1950 F Date Time Provider Department 02/12/18 [...] pathologic stage 0 (Tis Nx ?M0), ER-positive, NC-positive, s/p partial mastectomy ? ? INTERVAL HISTORY: [...] M.D., KAY ? cc: Lawrence Rai MD [facility] [place] [address] ? Katherine Downs MD [facility] [address] [place] [address] ? Dr. Berman ? This note was dictated with Radhaon Naturally Speaking and may contain some grammatical errors due to limitations of the software. Dexter De León RN, was present in the examination room throughout the encounter. Referring Provider: LAWRENCE RAI [[id number]] Allergies As of Date: 02/12/2018 (No Known [...] by FARHEEN CRONIN MD on 02/12/[address] [facility] PROGRESSon 02-12-2018 Protein mass conc HNO ID: [id number] Author: Farheen Cronin Service: (none) Author Type: Physician Type: Progress Notes Filed: 02/12/2018 10:40 AM Note Text: Radiation Oncology - Follow Up Note PATIENT NAME: Joss Washington PATIENT DIAGNOSIS: ?DCIS of the Right breast, UIQ, pathologic stage 0 (Tis Nx ?M0), ER-positive, NC-positive, s/p partial mastectomy ? ? INTERVAL HISTORY: [...] FACRO ? cc: Lawrence Rai MD [address] [place] [address] ? Katherine Downs MD [facility] [address] [place] [address] ? Dr. Berman ? This note was dictated with Jazmin Naturally Speaking and may contain some grammatical errors due to limitations of the software. Dexter De León RN, was present in the examination room throughout the encounter. Normal [facility] PROGRESSon 12-10-2017 Protein mass conc HNO ID: [id number] Author: Lisa Willams Service: (none) Author Type: [...] Dr. Downs at this time. Lisa Willams APRN.APPLICATIONS TESTER Normal [facility] CNOVon 12-04-2017 CNOV Office Visit (RADTSA ) JOSS WASHINGTON ([id number]) 1950 F Date Time Provider Department 12/04/17 [...] pathologic stage 0 (Tis Nx ?M0), ER-positive, NC-positive, s/p partial mastectomy ? ? INTERVAL HISTORY: [...] examination. ? Signed by: Farheen Cronin M.D., [facility] ? cc: Lawrence Rai MD [address] [place] [id number] ? Katherine Downs MD [facility] [address] [place] [address] ? Dr. Berman ? This note was dictated with Dragon Naturally Speaking and may contain some grammatical errors due to limitations of the software. Anatoliy Ha MA was present in the examination room throughout the encounter. Referring Provider: FARHEEN CRONIN [[id number]] Allergies As of Date: 12/04/2017 (No Known [...] Status:Closed by FARHEEN CRONIN MD on 12/04/17 [facility] CNOVSPon 12-04-2017 CNOVSP Visit (SP) Office (HEMASA) JOSS WASHINGTON ([id number]) 1950 F Date Time Provider Department 12/04/17 11:00 AM LISA WILLAMS (APPLICATIONS TESTER) CHRISS During your visit today, we recorded [...] Dr. Downs at this time. Lisa Willams APRN.APPLICATIONS TESTER Referring Provider: FARHEEN CRONIN [[id number]] Allergies As of Date: 12/04/2017 (No Known [...] breast*INVALID FOR* Encounter Status:Closed by LISA WILLAMS APPLICATIONS TESTER on 12/10/[address] [facility] PROGRESSon 12-04-2017 Protein mass conc HNO ID: [id number] Author: Farheen Cronin Service: (none) Author Type: Physician Type: Progress Notes Filed: 12/04/2017 1:55 PM Note Text: Radiation Oncology - Follow Up Note PATIENT NAME: Joss Washington PATIENT DIAGNOSIS: DCIS of the Right breast, UIQ, pathologic stage 0 (Tis Nx ?M0), ER-positive, NC-positive, s/p partial mastectomy ? ? INTERVAL HISTORY: [...] FACRO ? cc: Lawrence Rai MD [address] [place] [id number] ? Katherine Downs MD [facility] [address] [place] [address] ? Dr. Berman ? This note was dictated with Jazmin Naturally Speaking and may contain some grammatical errors due to limitations of the software. Anatoliy Ha MA was present in the examination room throughout the encounter. Normal [facility] CNOVon 10-30-2017 CNOV Office Visit (RADTSA ) JOSS WASHINGTON ([id number]) 1950 F Date Time Provider Department 10/30/17 [...] pathologic stage 0 (Tis Nx M0), ER-positive, NC-positive, s/p partial mastectomy ? INTERVAL HISTORY: Mrs. [...] Cronin M.D., FACRO cc: Lawrence Rai MD [facility] [place] [address] ? Katherine Downs MD [facility] [address] [place] [address] ? Dr. Berman ? This note was dictated with Dragon Naturally Speaking and may contain some grammatical errors due to limitations of the software. Dexter De León RN was present in the examination room throughout the encounter. Referring Provider: FARHEEN CRONIN [[id number]] Allergies As of Date: 10/30/2017 (No Known [...] by FARHEEN CRONIN MD on 10/30/[address] [facility] PROGRESSon 10-30-2017 Protein mass conc HNO ID: [id number] Author: Farheen Cronin Service: (none) Author Type: Physician Type: Progress Notes Filed: 10/30/2017 3:16 PM Note Text: Radiation Oncology - Follow Up Note PATIENT NAME: Joss Washington PATIENT DIAGNOSIS: DCIS of the Right breast, UIQ, pathologic stage 0 (Tis Nx M0), ER-positive, NC-positive, s/p partial mastectomy ? INTERVAL HISTORY: Mrs. [...] Cronin M.D., FACRO cc: Lawrence Rai MD [facility] [place] [address] ? Katherine Downs MD [facility] [address] [place] [address] ? Dr. Berman ? This note was dictated with Jazmin Naturally Speaking and may contain some grammatical errors due to limitations of the software. Dexter De León RN was present in the examination room throughout the encounter. Normal [facility] PROGRESSon 10-16-2017 Protein mass conc HNO ID: [id number] Author: Farheen Cronin Service: (none) Author Type: Physician Type: Progress Notes Filed: 10/17/2017 12:34 AM Note Text: [facility] Radiation Oncology Department RADIATION ONCOLOGY - COMPLETION NOTE PATIENT: JOSS WASHINGTON : 1950 DATES OF TREATMENT: 08/27/2017 to 10/15/2017 DIAGNOSIS: DCIS of the Right breast, UIQ, pathologic stage 0 (Tis Nx M0), ER-positive, NC-positive, s/p partial mastectomy AREA TREATED: Right Breast [...] 10/16/20179:57 AM cc: Dr. Lawrence Downs Normal [facility] CNOVon 10-14-2017 CNOV Office Visit (RADTSA ) JOSS WASHINGTON ([id number]) 1950 F Date Time Provider Department 10/14/17 [...] the Right?breast, UIQ,?pathologic?stage 0 (Tis Nx M0),?ER-positive, NC-positive, s/p?partial mastectomy ? COURSE: definitive AREA TREATED: [...] by FARHEEN CRONIN MD on 10/14/[address] [facility] PROGRESSon 10-14-2017 Protein mass conc HNO ID: [id number] Author: Farheen Cronin Service: (none) Author Type: Physician Type: Progress Notes Filed: 10/14/2017 2:16 PM Note Text: Radiation Oncology - On Treatment Review (OTR) Note PATIENT NAME: Joss Washington PATIENT DIAGNOSIS: DCIS?of the Right?breast, UIQ,?pathologic?stage 0 (Tis Nx M0),?ER-positive, NC-positive, s/p?partial mastectomy ? COURSE: definitive AREA TREATED: [...] as planned. ? Farheen Cronin MD? Normal [facility] CNOVon 10-07-2017 CNOV Office Visit (RADTSA ) JOSS WASHINGTON ([id number]) 1950 F Date Time Provider Department 10/07/17 [...] the Right?breast, UIQ,?pathologic?stage 0 (Tis Nx M0),?ER-positive, NC-positive, s/p?partial mastectomy ? COURSE: definitive AREA TREATED: [...] by FARHEEN CRONIN MD on 10/07/[address] [facility] PROGRESSon 10-07-2017 Protein mass conc HNO ID: [id number] Author: Farheen Cronin Service: (none) Author Type: Physician Type: Progress Notes Filed: 10/07/2017 11:21 AM Note Text: Radiation Oncology - On Treatment Review (OTR) Note PATIENT NAME: Joss Washington PATIENT DIAGNOSIS: DCIS?of the Right?breast, UIQ,?pathologic?stage 0 (Tis Nx M0),?ER-positive, NC-positive, s/p?partial mastectomy ? COURSE: definitive AREA TREATED: [...] as planned. ? Farheen Cronin MD? Normal [facility] CNOVon 09-30-2017 CNOV Office Visit (RADTSA ) JOSS WASHINGTON ([id number]) 1950 F Date Time Provider Department 09/30/17 [...] the Right?breast, UIQ,?pathologic?stage 0 (Tis Nx M0),?ER-positive, NC-positive, s/p?partial mastectomy ? COURSE: definitive AREA TREATED: [...] Status:Closed by FARHEEN CRONIN MD on 09/30/[address] [facility] PROGRESSon 09-30-2017 Protein mass conc HNO ID: [id number] Author: Farehen Cronin Service: (none) Author Type: Physician Type: Progress Notes Filed: 09/30/2017 11:48 AM Note Text: Radiation Oncology - On Treatment Review (OTR) Note PATIENT NAME: Joss Washington PATIENT DIAGNOSIS: DCIS?of the Right?breast, UIQ,?pathologic?stage 0 (Tis Nx M0),?ER-positive, NC-positive, s/p?partial mastectomy ? COURSE: definitive AREA TREATED: [...] as planned. ? Farheen Cronin MD? Normal [facility] CNOVon 09-22-2017 CNOV Office Visit (RADTSA ) JOSS WASHINGTON ([id number]) 1950 F Date Time Provider Department 09/22/17 [...] the Right?breast, UIQ,?pathologic?stage 0 (Tis Nx M0),?ER-positive, NC-positive, s/p?partial mastectomy ? COURSE: definitive AREA TREATED: [...] by FARHEEN CRONIN MD on 09/22/[address] [facility] PROGRESSon 09-22-2017 Protein mass conc HNO ID: [id number] Author: Farheen Cronin Service: (none) Author Type: Physician Type: Progress Notes Filed: 09/22/2017 2:38 PM Note Text: Radiation Oncology - On Treatment Review (OTR) Note PATIENT NAME: Joss Washington PATIENT DIAGNOSIS: DCIS?of the Right?breast, UIQ,?pathologic?stage 0 (Tis Nx M0),?ER-positive, NC-positive, s/p?partial mastectomy ? COURSE: definitive AREA TREATED: [...] as planned. ? Farheen Cronin MD Normal [facility] CBC and Differentialon 09-18 Abs Baso 0.03 k/uL Normal 0.00-0.[address] [facility] Abs [place] 0.45 k/uL Normal 0.00-0.[address] [facility] Abs Neut 5.16 k/uL Normal 1.45-7.[address] [facility] Basophils/100 WBC (Bld) 0.4 % Normal [facility] Eosinophils #/vol (Bld) 0.23 10*3/uL Normal 0.00-0.[address] [facility] Eosinophils/100 WBC (Bld) 3.2 % Normal [facility] Erythrocyte distribution width Ratio (RBC) 15.0 % Normal 11.5-15.[address] [facility] Hematocrit Volume Fraction (Bld) 39.1 % Normal 36.0-46.[address] [facility] Hemoglobin mass conc (Bld) 13.0 g/dL Normal 11.5-15.[address] [facility] Lymphocytes #/vol (Bld) 1.40 10*3/uL Normal 1.00-4.[address] [facility] Lymphocytes/100 WBC (Bld) 19.3 % Normal [facility] MCH Entitic mass (RBC) 30.6 pG Normal 26.0-34.[address] [facility] MCHC mass conc (RBC) 33.2 g/dL [facility] 30.5-[facility] MCV Entitic volume (RBC) 92.0 fL Normal 80.0-100.[address] [facility] Monocytes/100 WBC (Bld) 6.2 % Normal [facility] Neutrophils/100 WBC (Bld) 70.9 % Normal [facility] Platelet mean volume Entitic volume (Bld) 9.5 fL Normal 9.0-12.[address] [facility] Platelets #/vol (Bld) 272 10*3/uL Normal 150-[address] [facility] RBC #/vol (Bld) 4.25 10*6/uL Normal 3.90-5.20 [facility] WBC #/vol (Bld) 7.27 10*3/uL Normal 3.70-11.00 [facility] CNOVon 09-18-2017 CNOV Office Visit (RADTSA ) JOSS WASHINGTON ([id number]) 1950 F Date Time Provider Department 09/18/17 [...] De León RN Referring Provider: FARHEEN CRONIN [[id number]] Allergies As of Date: 09/18/2017 (No Known [...] Notes: >> Dexter Sykes) CLARA De León [facility] Sep 18, 2017 10:01 AM Status: [...] Status:Closed by DEXTER DE LEÓN on 09/18/17 [facility] CNOVon 09-16-2017 CNOV Office Visit (RADTSA ) JOSS WASHINGTON ([id number]) 1950 F Date Time Provider Department 09/16/17 [...] the Right?breast, UIQ,?pathologic?stage 0 (Tis Nx M0),?ER-positive, NC-positive, s/p?partial mastectomy ? COURSE: definitive AREA TREATED: [...] Status:Closed by [facility]AR[facility] CRONIN [facility] HNO ID: [id number] Author: Farheen Cronin Service: (none) Author Type: Physician Type: Progress Notes Filed: 09/16/2017 11:06 AM Note Text: Radiation Oncology - On Treatment Review (OTR) Note PATIENT NAME: Joss Washington PATIENT DIAGNOSIS: DCIS?of the Right?breast, UIQ,?pathologic?stage 0 (Tis Nx M0),?ER-positive, NC-positive, s/p?partial mastectomy ? COURSE: definitive AREA TREATED: [...] treatment as planned. ? Farheen Cronin MD [facility] PROGRESSon 09-09-2017 Protein mass conc HNO ID: [id number] Author: Jem Santana Service: (none) Author Type: Physician Type: Progress Notes Filed: 09/18/2017 11:49 PM Note Text: RADIATION ONCOLOGY- ON TREATMENT REVIEW (OTR) NOTE PATIENT NAME: Joss Washington PATIENT DIAGNOSIS: DCIS?of the Right?breast, UIQ,?pathologic?stage 0 (Tis Nx M0),?ER-positive, NC-positive, s/p?partial mastectomy ? COURSE: definitive AREA TREATED: [...] requiring intervention. Signed by: Jem Santana MD [facility] CNOVon 09-08-2017 CNOV Office Visit (RADTSA ) FELIXJOSS MIX ([id number]) 1950 F Date Time Provider Department 09/08/17 [...] the Right?breast, UIQ,?pathologic?stage 0 (Tis Nx M0),?ER-positive, NC-positive, s/p?partial mastectomy ? COURSE: definitive AREA TREATED: [...] by JEM SANTANA MD on 09/18/[address] [facility] CBC and Differentialon 09-04 Abs Baso 0.03 k/uL Normal <0.[address] [facility] Comment on above: Performed By: #### C BCDIF ####[facility] [place], [place] [phone] Abs [place] 0.45 k/uL Normal <0.[address] [facility] Comment on above: Performed By: #### C BCDIF ####[place] [address] [place] [phone] Abs Neut 3.74 k/uL Normal 1.45-7.[address] [facility] Comment on above: Performed By: #### C BCDIF ####[place] [address] [place] [phone] Basophils/100 WBC (Bld) 0.5 % Normal [facility] Comment on above: Performed By: #### C BCDIF ####[place] [phone] Comment AGC=3.[address] [facility] Comment on above: Result Comment: Prel iminary result. Interpret with caution. Final results may vary. Results requested and read back by: /09/04/1710/15/1026/OSITO CASTELLON Performed By: #### C BCDIF ####[place] [phone] Eosinophils #/vol (Bld) 0.23 10*3/uL Normal <0.[address] [facility] Comment on above: Performed By: #### C BCDIF ####[address] [place] [phone] Eosinophils/100 WBC (Bld) 3.7 % Normal [facility] Comment on above: Performed By: #### C BCDIF ####[place] [phone] Erythrocyte distribution width Ratio (RBC) 15.5 % High 11.5-15.[address] [facility] Comment on above: Performed By: #### C BCDIF ####[place] [phone] Hematocrit Volume Fraction (Bld) 37.1 % Normal 36.0-46.[address] [facility] Comment on above: Performed By: #### C BCDIF ####[place] [address] [place], [place] [phone] Hemoglobin mass conc (Bld) 12.2 g/dL Normal 11.5-15.[address] [facility] Comment on above: Performed By: #### C BCDIF ####[place] [address] [place], [place] [phone] Lymphocytes #/vol (Bld) 1.78 10*3/uL Normal 1.00-4.[address] [facility] Comment on above: Performed By: #### C BCDIF ####[place] [address], [place] [phone] Lymphocytes/100 WBC (Bld) 28.6 % Normal [facility] Comment on above: Performed By: #### C BCDIF ####[address] [place] [place], [place] [phone] MCH Entitic mass (RBC) 30.3 pG Normal 26.0-34.[address] [facility] Comment on above: Performed By: #### C BCDIF ####[place] [address] [place] [phone] MCHC mass conc (RBC) 32.9 g/dL Normal 30.5-36.0 [facility] Comment on above: Performed By: #### C BCDIF ####[place] [address] [place] [phone] MCV Entitic volume (RBC) 92.1 fL Normal 80.0-100.[address] [facility] Comment on above: Performed By: #### C BCDIF ####[place] [address] [place] [phone] Monocytes/100 WBC (Bld) 7.2 % Normal [facility] Comment on above: Performed By: #### C BCDIF ####[place] [address] [place] [phone] Neutrophils/100 WBC (Bld) 60.0 % Normal [facility] Comment on above: Performed By: #### C BCDIF ####[address] [phone] Platelet mean volume Entitic volume (Bld) 9.3 fL Normal 9.0-12.[address] [facility] Comment on above: Performed By: #### C BCDIF ####[address] [phone] Platelets #/vol (Bld) 285 10*3/uL Normal 150-[address] [facility] Comment on above: Performed By: #### C BCDIF ####[address] [phone] RBC #/vol (Bld) 4.03 10*6/uL Normal 3.90-5.20 [facility] Comment on above: Performed By: #### C BCDIF ####[address] [phone] WBC #/vol (Bld) 6.19 10*3/uL Normal 3.70-11.00 [facility] Comment on above: Performed By: #### C BCDIF ####[facility] [place] [address] [phone] [place] 09-04-2017 CNOV Office Visit (RADGENAROA ) JOSS WASHINGTON ([id number]) 1950 F Date Time Provider Department 09/04/17 [...] De León RN Referring Provider: FARHEEN CRONIN [[id number]] Allergies As of Date: 09/04/2017 (No Known [...] >> Dexter De León RN [facility] Sep 04, 2017 12:44 PM Status: Signed [...] Status:Closed by DEXTER DE LEÓN on 09/04/17 [facility] CNOVon 09-02-2017 CNOV Office Visit (RADTSA ) JOSS WASHINGTON ([id number]) 1950 F Date Time Provider Department 09/02/17 [...] pathologic stage 0 (Tis Nx M0), ER-positive, NC-positive, s/p partial mastectomy COURSE: definitive AREA TREATED: [...] breast*INVALID FOR* Visit Notes: >> Anatoliy (Director Intelligence Analysis Programslamine Ha RN loni Sep 02, 2017 10:09 AM Status: Signed Status: Post-menopausal. Encounter Status:Closed by FARHEEN CRONIN MD on 09/02/17 [facility] PROGRESSon 09-02-2017 Protein mass conc HNO ID: [id number] Author: Farheen Cronin Service: (none) Author Type: Physician Type: Progress Notes Filed: 09/02/2017 1:31 PM Note Text: Radiation Oncology - On Treatment Review (OTR) Note PATIENT NAME: Joss Washington PATIENT DIAGNOSIS: DCIS of the Right breast, UIQ, pathologic stage 0 (Tis Nx M0), ER-positive, NC-positive, s/p partial mastectomy COURSE: definitive AREA TREATED: [...] radiation treatment as planned. Farheen Cronin MD [facility] CNOVon 08-27-2017 CNOV Office Visit (RADTSA ) FELIXJOSS ([id number]) 1950 F Date Time Provider Department 08/27/17 [...] the Right?breast, UIQ,?pathologic?stage 0 (Tis Nx M0),?ER-positive, NC-positive, s/p?partial mastectomy ? Plan and MU calculations [...] Jem Santana MD Referring Provider: JEM SANTANA [[id number]] Allergies As of Date: 08/27/2017 (No Known [...] Status:Closed by JEM SANTANA MD on 09/12/17 [facility] PROGRESSon 08-27-2017 Protein mass conc HNO ID: [id number] Author: Jem Santana Service: (none) Author Type: Physician Type: Progress Notes Filed: 09/12/2017 12:12 AM Note Text: RADIATION ONCOLOGY- ON TREATMENT REVIEW (OTR) NOTE PATIENT NAME: Joss Washington PATIENT DIAGNOSIS: DCIS?of the Right?breast, UIQ,?pathologic?stage 0 (Tis Nx M0),?ER-positive, NC-positive, s/p?partial mastectomy ? Plan and MU calculations [...] treatment. Signed by: Jem Santana MD Normal [facility] CT NON-RADIOLOGY -NBNRo n 08-20-2017 [facility] CT NON-RADIOLOGY -NBNR [facility] - CT Images - Obtained Outside of Imaging [place] [id number] Normal [facility] CNCNPATEDon 08-20-2017 CNCNPATED Education (RADTSA) JOSS WASHINGTON ([id number]) 1950 F Date Time Provider Department 08/20/17 ANATOLIY HA) RADGENAROA Reason for Visit: Patient Education [91] Visit Notes: >> Anatoliy Ha RN FriAugust 20, 2017 3:46 PM Status: Signed Radiation Therapy - Patient Education Note PATIENT NAME: Joss Washington PATIENT August 20, 2017 [facility] FACILITY/LOCATION: [facility] READINESS TO LEARN Cognitive Ability: Alert and [...] need for social work, 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 Was approved? 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 Encounter Status:Closed by ANATOLIY HA on 08/20/17 [facility] CNOVon 08-20-2017 CNOV Office Visit (RADTSA ) JOSS WASHINGTON ([id number]) 1950 F Date Time Provider Department 08/20/17 [...] pathologic stage 0 (Tis Nx M0), ER-positive, NC-positive, s/p partial mastectomy. HPI: 67 year old [...] with her . 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 COMPLETE REVIEW [...] Cronin MD cc: Lawrence Rai MD [address] [place], [place] [phone] Katherine Downs MD [facility] [place] [address] Dr. Berman This note was dictated with Dragon Naturally Speaking and may contain some grammatical errors due to limitations of the software. Referring Provider: KATHERINE DOWNS [[id number]] Allergies As of Date: 08/20/2017 (No Known [...] by FARHEEN CRONIN MD on 08/20/[address] [facility] PROGRESSon 08-20-2017 Protein mass conc HNO ID: [id number] Author: Farheen Cronin Service: (none) Author Type: Physician Type: Progress Notes Filed: 08/20/2017 3:39 PM Note Text: Radiation Oncology - New Patient/Consult Note PATIENT NAME: Joss Washington PATIENT REQUESTING PROVIDER: Dr. Katherine Downs DIAGNOSIS: 67 year old female with DCIS of the Right breast, UIQ, pathologic stage 0 (Tis Nx M0), ER-positive, NC-positive, s/p partial mastectomy. HPI: 67 year old [...] with her . 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 COMPLETE [...] Farheen Cronin MD cc: Lawrence Rai MD [address] [place] [address] [place] [address] Katherine Downs MD [facility] [address] [place] [address] Dr. Berman This note was dictated with Dragon Naturally Speaking and may contain some grammatical errors due to limitations of the software. Normal [facility] Protein [facility] conc HNO ID: [id number] Author: Farheen Cronin Service: (none) Author Type: Physician Type: Progress Notes Filed: 08/21/2017 12:34 AM Note Text: FELIX JOSS [id number] 08/20/2017 [facility] Radiation Oncology Department SIMULATION NOTE DATE OF SIMULATION: 08/20/2017 THERAPIST: Yuliana Gill MACHINE: [employer] Simulator DIAGNOSIS: Malignant neoplasm of upper-inner quadrant of right female ouriazF36.211 AREA: CONTRAST: None Consent in Epic: Yes [...] Cronin M.D. / NRS 08/20/20173:[address] [facility] Protein [facility] conc HNO ID: [id number] Author: Farheen Cronin Service: (none) Author Type: Physician Type: Progress Notes Filed: 08/27/2017 12:34 AM Note Text: JOSS WASHINGTON [id number] 08/20/2017 [facility] Department of Radiation Oncology Treatment Planning Note [...] Signed Farheen Cronin M.D. 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] Order(s):RAD/ONC CONSULT [9037] Order #: [id number]: 1 Prescriptions as of 08/14/2017 Sig: VENTOLIN [...] by KATHERINE DOWNS MD on 08/14/[address] [facility] PROGRESSon 08-14-2017 Protein mass conc HNO ID: [id number] Author: Katherine Downs Service: (none) Author Type: [...] - RAD/ONC CONSULT Katherine Downs MD Normal [facility] US-US GUIDE LOCAL BREAST RT IMPORTon 07-04-2017 US-US GUIDE LOCAL BREAST RT IMPORT Images were obtained outside of [facility] [id number] Normal [facility] MAMM OUTSIDE DICOM IMPORT -N BNRon 06-18-2017 MAMM OUTSIDE DICOM IMPORT -NBNR Images were obtained outside of [facility] [id number] Normal [facility] Encounters Encounter Date Encounter Type Care Provider Facility Start: 05-07-2024 End: 05-07-2024 ambulatory JOHN YIN [facility] Start: 03-16-2022 End: 03-17-[address] LAWRENCE RAI Facility:[facility] Start: 02-28-[address] LAWRENCE RAI Facility :[facility] Start: 02-08-2022 End: 02-09-[address] LAWRENCE RAI Facility:[facility] Start: 11-30-2021 End: 12-01-[address] LAWRENCE RAI Facility:[facility] Start: 06-11-2018 End: 06-15-2018 Patient encounter procedure FARHEEN CRONIN [facility] Start: 02-12-2018 End: 02-13-2018 Patient encounter procedure FARHEEN CRONIN [facility] Start: 12-04-2017 End: 12-11-2017 Patient encounter procedure LISA (APPLICATIONS TESTER) ЕКАТЕРИНА [facility] Start: 10-30-2017 End: 10-30-2017 Patient encounter procedure FARHEEN CRONIN [facility] Start: 10-15-2017 End: 10-20-2017 Patient encounter procedure KATHERINE DOWNS [facility] Start: 10-14-2017 End: 10-14-2017 Patient encounter procedure FARHEEN CRONIN [facility] Start: 10-13-2017 End: 10-15-2017 Patient encounter procedure KATHERINE DOWNS [facility] Start: 10-09-2017 End: 10-30-2017 Patient encounter procedure KATHERINE DOWNS [facility] Start: 10-08-2017 End: 10-10-2017 Patient encounter procedure KATHERINE DOWNS [facility] Start: 10-07-2017 End: 10-07-2017 Patient encounter procedure FARHEEN CRONIN [facility] Start: 10-06-2017 End: 10-10-2017 Patient encounter procedure KATHERINE DOWNS [facility] Start: 10-03-2017 End: 10-08-2017 Patient encounter procedure KATHERINE DOWNS [facility] Start: 10-02-2017 End: 10-20-2017 Patient encounter procedure KATHERINE DOWNS [facility] Start: 09-30-2017 End: 09-30-2017 Patient encounter procedure FARHEEN CRONIN [facility] Start: 09-29-2017 End: 10-06-2017 Patient encounter procedure KATHERINE DOWNS [facility] Start: 09-26-2017 End: 10-02-2017 Patient encounter procedure KATHERINE DOWNS [facility] Start: 09-25-2017 End: 09-29-2017 Patient encounter procedure KATHERINE DOWNS [facility] Start: 09-24-2017 End: 10-06-2017 Patient encounter procedure KATHERINE DOWNS [facility] Start: 09-23-2017 End: 09-29-2017 Patient encounter procedure KATHERINE DOWNS [facility] Start: 09-22-2017 End: 09-22-2017 Patient encounter procedure FARHEEN CRONIN [facility] Start: 09-19-2017 End: 09-22-2017 Patient encounter procedure KATHERINE DOWNS [facility] Start: 09-18-2017 End: 09-18-2017 Patient encounter procedure FARHEEN CRONIN [facility] Start: 09-17-2017 End: 09-30-2017 Patient encounter procedure KATHERINE DOWNS [facility] Start: 09-16-2017 End: 09-16-2017 Patient encounter procedure FARHEEN CRONIN [facility] Start: 09-15-2017 End: 09-17-2017 Patient encounter procedure KATHERINE DOWNS [facility] Start: 09-12-2017 End: 09-17-2017 Patient encounter procedure KATHERINE DOWNS [facility] Start: 09-11-2017 End: 09-15-2017 Patient encounter procedure KATHERINE DOWNS [facility] Start: 09-10-2017 End: 09-22-2017 Patient encounter procedure KATHERINE DOWNS [facility] Start: 09-09-2017 End: 09-15-2017 Patient encounter procedure KATHERINE DOWNS [facility] Start: 09-08-2017 End: 09-08-2017 Patient encounter procedure JEM SANTANA [facility] Start: 09-05-2017 End: 09-15-2017 Patient encounter procedure KATHERINE DOWNS [facility] Start: 09-04-2017 End: 09-04-2017 Patient encounter procedure FARHEEN CRONIN [facility] Start: 09-03-2017 End: 09-15-2017 Patient encounter procedure KATHERINE DOWNS [facility] Start: 09-02-2017 End: 09-02-2017 Patient encounter procedure FARHEEN CRONIN [facility] Start: 09-01-2017 End: 09-04-2017 Patient encounter procedure KATHERINE DOWNS [facility] Start: 08-29-2017 End: 09-01-2017 Patient encounter procedure KATHERINE DOWNS [facility] Start: 08-28-2017 End: 09-01-2017 Patient encounter procedure KATHERINE DOWNS [facility] Start: 08-27-2017 End: 08-27-2017 Patient encounter procedure JEM SANTANA [facility] Start: 08-20-2017 End: 08-21-2017 Patient encounter procedure FARHEEN CRONIN [facility] Start: 08-14-2017 End: 08-15-2017 Patient encounter [facility] Payers Date Payer Category Payer Medicare [id number] 1958 Self-pay [id number] 1958 Unknown [id number] 1950 Unknown [id number] 1950 Unknown [id number] 1950 Unknown [id number] 1950 Unknown [id number] Progress note 05-07-2024 Note Date & Type Note Facility 05-07-2024 Note [facility] Note Reason for cardiology consult: TIA Chief Complaint: dyspnea on exertion HPI: Joss Washington is a 73 y.o. female with history of hypertension, hyperlipidemia, recent TIA, and right breast cancer Patient presented to [facility] on 03/18/2024 with vision changes which lasted [...] has no past medical history of Stroke ([facility]). Surgical History She has a [...] TIA, no ische (more content not included)... [facility] Summary Purpose Family History No Family History Records FoundNo Family History Records FoundNo Family History Records FoundNo Family History Records Found Advance Directives No Advanced Directives Records FoundNo Advanced Directives Records FoundNo Advanced Directives Records FoundNo Advanced Directives Records Found Additional Source Comments INFORMATION SOURCE (unrecogn ized section and content) DATE CREATED AUTHOR 06/15/[address] [facility] DATE CREATED AUTHOR AUTHOR'S ORGANIZ ATION 07/26/2019 [facility] DATE CREATED AUTHOR AUTHOR'S ORGANIZ ATION 03/22/2022 [facility] DATE CREATED AUTHOR AUTHOR'S ORGANIZ ATION 05/18/2024 [facility] FOR RECORDS PERTAINING TO PATIENTS WHO ARE [...] BE BASED ON THE PRIMARY CLINICAL RECORDS. [employer] [facility]. provides no warranty or guarantee of the accuracy or completeness of information in this document.
== END 2024-05-31 08:04 | disposition home or self-care (01) ==
LOC: LAB 08:04
PROVIDERS: PCP Family Medicine; Visit Provider Family Medicine
DX: D18.00 Hemangioma unspecified site (principal)
CPT/HCPCS: 36415; 82565

== ENCOUNTER 2024-06-15 08:23 | Outpatient (OUT) | payer MEDICARE, OTHER, SELFPAY ==
--- NOTE | 2024-06-15 08:26 | MR_ITS ---
[facility] [place] [id number] Patient Name: JOSS WASHINGTON MRN: [id number] date: 1950 Sex: F Assigned Patient Location: MRI Current Patient Location: MRI Accession/Order Number: [id number] Exam Date: 06/15/2024 19:40 Report Date: 06/15/2024 19:50 At the request of: LAWRENCE ALBERT MD Procedure: MR head/brain wo/w con MRI BRAIN WITHOUT AND WITH INTRAVENOUS CONTRAST CLINICAL DATA: Angioma, abnormal CTA COMPARISON: CT head neck 03/18/2024 FINDINGS: No restricted diffusion. Ventricles and sulci normal in size and configuration for the patient's age. No shift of midline structure. Basal cisterns are patent. Major intracranial arterial vascular flow voids are preserved. Dedicated imaging of the sella was obtained. Partially empty sella turcica noted. Infundibulum is midline. Unremarkable enhancement of the pituitary gland Along the tuberculum sella, there is a meningioma noted measuring 6 x 5 x 9 mm. No additional foci of abnormal postcontrast enhancement elsewhere within brain. Mild paranasal sinus mucosal thickening. Polypoid changes left maxillary sinus. 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 No acute infiltrate process by MRI Impression dictated by: Finesse Horton M.D.06/15/2024 7:50 PM Dictation Location: [place] [address] Electronically authenticated by: [id number] Y Date: 06/15/2024 19:50
--- OUTSIDE RECORDS SUMMARY | 2024-06-15 08:39 | XMS_ITS | CCD ---
Author Organization [facility] Care Team Providers Care Line Haul Driver Name Role Phone KATHERINE DOWNS Attending Unavailable [...] CRONIN, KHALID R Referring Unavailable LISA WILLAMS ([facility]) Attending Unavailabl e CRONIN, KHALID R Referring [...] Range Facility Office Visiton 05-07-2024 Follow-up visit [id number] Joss Washington 1950 F Date Provider Department Center 05/07/2024 [id number] YIN [facility] Family History Problem Relation Age of Onset Hypertension Mother Stroke Mother Hyperlipidemia Mother Hypertension Father Coronary artery disease Father Hyperlipidemia Father Cancer Father Family Status - Relation Status Age at Mother Father Level of Service:83906 CA OFFICE/OUTPATIENT NEW MODERATE MDM 45 MINUTES Reason for Visit and Comments: Chest Pain [462296] - Patient describes it as chest discomfort . Says she was told 40+ years ago that she had mitral valve prolapse. Echo was done with recent admission. Hypertension [534521] - She was admitted to [facility] in Feb 2024 for TIA and hypertension. Hyperlipidemia [182] Shortness of Breath [] - C/o MORENO. Palpitations [] - She wore 7 day Holter after hospital admission. She is currently wearing a 30 day event monitor. Normal [facility] XR SHOULDER LT 2V or >on XR [...] by: LIBIA GIBBS Date: 2022-03-17 13:31 Normal [facility] MG MAMM ABHAY DIAG W CADon MG MAMM ABHAY DIAG W CAD Patient: JOSS WASHINGTON. Exam Date: 02/08/2022 : 1950 Gender:F Ordering : DR LAWRENCE RAI . Admission #: [id number] Family : Order #: [id number] CLICK HERE TO VIEW EXAM RADIOLOGY REPORT [...] brain cancer at age 69. LOCATION: [facility] BREAST COMPOSITION: Scattered areas fibroglandular density. [...] M.D. on 02/08/2022 at 08:46 Normal [facility] T4, T3U, FTI LABCORPon 12-01 Free Thyroxine Index 1.7 Normal 1.2-4.9 [facility] Comment on above: Performed By: #### T HYLC #### [facility] [address] [place], [place] [address] Dr. Sheldon Cordero T3 Uptake 27 % Normal 24-39 [facility] Comment on above: Performed By: #### T HYLC #### [facility] [address] [place], [place] [address] Dr. Sheldon Cordero T4 [Mass/Vol] 6.4 ug/dL Normal 4.5-12.0 [facility] Comment on above: Performed By: #### T HYLC #### [facility] [address] [place] [address] [address] Sheldon Cordero CBC AUTO DIFFon 11-30-2021 BASO # 0.1 103/ul Normal 0.0-0.1 [facility] Comment on above: Performed By: #### C BC #### [facility] [address] [place] [address] [address] Sheldon Cordero Basophils/100 WBC (Bld) 0.8 % Normal 0.2-2.0 [facility] Comment on above: Performed By: #### C BC #### [facility] [address] [place] [address] [address] Sheldon Cordero EO # 0.3 103/ul Normal 0.0-0.7 [facility] Comment on above: Performed By: #### C BC #### [facility] [address] [place] [address] Dr. Sheldon Cordero Eosinophils/100 WBC (Bld) 3.8 % Normal 0.9-7.0 [facility] Comment on above: Performed By: #### C BC #### [facility] [address] [place] [address] [address] Sheldon Cordero Erythrocyte distribution width (RBC) [Ratio] 14.6 % Normal 11.0-15.0 [facility] Comment on above: Performed By: #### C BC #### [facility] [address] [place] [address] Dr. Sheldon Cordero Hematocrit (Bld) [Volume fraction] 39.3 % Normal 36.0-48.0 [facility] Comment on above: Performed By: #### C BC #### [facility] [address] [place] [address] [address] Sheldon Cordero Hemoglobin (Bld) [Mass/Vol] 12.4 g/dL Normal 12.0-16.0 [facility] Comment on above: Performed By: #### C BC #### [facility] [address] [place] [address] [address] Sheldon Cordero IG # 0.08 10e3/ul Critically high 0.00-0.03 [facility] Comment on above: Performed By: #### C BC #### [facility] [address] [place] [address] Dr. Sheldon Cordero IG % 1.1 % Critically high 0.0-0.5 [facility] Comment on above: Performed By: #### C BC #### [facility] [address] [place] [address] Dr. Sheldon Cordero LYMPH # 1.8 103/ul Normal 1.2-3.8 [facility] Comment on above: Performed By: #### C BC #### [facility] [address] [place] [address] Dr. Sheldon Cordero Lymphocytes/100 WBC (Bld) 25.1 % Normal 20.5-60.0 [facility] Comment on above: Performed By: #### C BC #### [facility] [address] [place] [address] Dr. Sheldon Cordero MANUAL DIFF REQ NO Normal [facility] Comment on above: Performed By: #### C BC #### [facility] [address] [place] [address] Dr. Sheldon Cordero MCH (RBC) [Entitic mass] 29.6 pg Normal 26.7-34.0 [facility] Comment on above: Performed By: #### C BC #### [facility] [address] [place] [address] Dr. Sheldon Cordero MCHC (RBC) [Mass/Vol] 31.6 g/dL Normal 29.9-35.2 [facility] Comment on above: Performed By: #### C BC #### [facility] [address] [place] [address] Dr. Sheldon Cordero MCV (RBC) [Entitic vol] 93.8 fL Normal 81.0-99.0 [facility] Comment on above: Performed By: #### C BC #### [facility] [address] [place] [address] Dr. Sheldon Cordero MONO # 0.4 103/ul Normal 0.3-0.8 [facility] Comment on above: Performed By: #### C BC #### [facility] [address] [place] [address] [address] Sheldon Cordero Monocytes/100 WBC (Bld) 5.8 % Normal 1.7-12.0 [facility] Comment on above: Performed By: #### C BC #### [facility] [address] [place] [address] [address] Sheldon Cordero NEUT # 4.6 103/ul Normal 1.4-6.5 [facility] Comment on above: Performed By: #### C BC #### [facility] [address] [place] [address] [address] Sheldon Cordero Neutrophils/100 WBC (Bld) 63.4 % Normal 43.0-75.0 [facility] Comment on above: Performed By: #### C BC #### [facility] [address] [place] [address] Dr. Sheldon Cordero Platelet mean volume (Bld) [Entitic vol] 8.9 fL Critically low 9.5-13.5 [facility] Comment on above: Performed By: #### C BC #### [facility] [address] [place] [address] Dr. Sheldon Cordero PLT 277 103/ul Normal 150-450 [facility] Comment on above: Performed By: #### C BC #### [facility] [address] [place] [address] Dr. Sheldon Cordero RBC 4.19 106/ul Critically low 4.20-5.40 [facility] Comment on above: Performed By: #### C BC #### [facility] [address] [place] [address] Dr. Sheldon Cordero WBC 7.2 103/ul Normal 4.0-11.0 [facility] Comment on above: Performed By: #### C BC #### [facility] [address] [place] [address] Dr. Sheldon Cordero GLYCOHEMOGLOBIN A1Con 2021 ADA RECOMMENDATION SEE BELOW Normal [facility] Comment on above: Result Comment: ADA RECOMMENDED LIMIT 4.0 - 6.0 ADA THERAPEUTIC TARGET < 7.0 ACTION SUGGESTED > 7.0 Performed By: #### A 1C #### [facility] [address] [place] [address] [address] Sheldon Cordero Glucose [Mass/Vol] 128 mg/dL Normal [facility] Comment on above: Performed By: #### A 1C #### [facility] [address] [place] [address] [address] Sheldon Cordero HbA1c (Bld) [Mass fraction] 6.1 % Normal 4.5-6.2 [facility] Comment on above: Performed By: #### A 1C #### [facility] [address] [place] [address] Dr. Sheldon Cordero IRONon 11-30-2021 Iron [Mass/Vol] 58.0 ug/dL Normal 50.0-170.0 [facility] Comment on above: Performed By: #### I GERMAN #### [facility] [address] [place] [address] Dr. Sheldon Cordero LIPID PROFILEon 11-30-2021 CHOL-HDL RATIO NORM SEE BELOW Normal [facility] Comment on above: Result Comment: 3.3 - 4.4 LOW RISK 4.4 - 7.1 AVERAGE RISK 7.1 - 11.0 MODERATE RISK >11.0 HIGH RISK Performed By: #### L IPID, TSH, CMP #### [facility] [address] [place] [address] Dr. Sheldon Cordero Cholesterol [Mass/Vol] 251 mg/dL Critically high <=200 [facility] Comment on above: Performed By: #### L IPID, TSH, CMP #### [facility] [address] [place] [address] Dr. Sheldon Cordero Cholesterol in HDL [Mass/Vol] 70 mg/dL Critically high 40-60 [facility] Comment on above: Performed By: #### L IPID, TSH, CMP #### [facility] [address] [place] [address] Dr. Sheldon Cordero Cholesterol in LDL [Mass/Vol] 161.4 mg/dL Normal [facility] Comment on above: Performed By: #### L IPID, TSH, CMP #### [facility] [address] [place] [address] [address] Sheldon Cordero Cholesterol.total/Ch olesterol in HDL [Mass ratio] 3.6 {ratio} Normal [facility] Comment on above: Performed By: #### L IPID, TSH, CMP #### [facility] [address] [place] [address] [address] Sheldon Cordero HDL NORMAL > or = 60 mg/dl - LO W CARDIOVASCULAR RISK <40 mg/dl - HIGH CARDIOVASCULAR RISK Normal [facility] Comment on above: Performed By: #### L IPID, TSH, CMP #### [facility] [address] [place] [address] [address] Sheldon Cordero LDL CALC NORMAL SEE BELOW Normal [facility] Comment on above: Result Comment: <100 mg/dl OPTIMAL 100 - 129 mg/dl NEAR OR ABOVE OPTIMAL 130 - 159 mg/dl BORDERLINE HIGH 160 - 189 mg/dl HIGH >190 mg/dl VERY HIGH Performed By: #### L IPID, TSH, CMP #### [facility] [address] [place] [address] [address] Sheldon Cordero Triglyceride [Mass/Vol] 98 mg/dL Normal <=150 [facility] Comment on above: Performed By: #### L IPID, TSH, CMP #### [facility] [address] [place] [address] Dr. Sheldon Cordero VLDL CALC 19.6 mg/dL Normal [facility] Comment on above: Performed By: #### L IPID, TSH, CMP #### [facility] [address] [place] [address] [address] Sheldon Cordero PROF 14(COMP METB)on 022 Albumin [Mass/Vol] 3.4 g/dL Normal 3.4-5.0 [facility] Comment on above: Performed By: #### L IPID, TSH, CMP #### [facility] [address] [place] [address] Dr. Sheldon Cordero Albumin/Globulin [Mass ratio] 0.9 {ratio} Normal [facility] Comment on above: Performed By: #### L IPID, TSH, CMP #### [facility] [address] [place] [address] [address] Sheldon Cordero ALP [Catalytic activity/Vol] 107 U/L Normal 46-116 [facility] Comment on above: Performed By: #### L IPID, TSH, CMP #### [facility] [address] [place] [address] [address] Sheldon Cordero ALT [Catalytic activity/Vol] 17 U/L Normal 14-59 [facility] Comment on above: Performed By: #### L IPID, TSH, CMP #### [facility] [address] [place] [address] [address] Sheldon Cordero Anion gap [Moles/Vol] 10.9 mmol/L Normal [facility] Comment on above: Performed By: #### L IPID, TSH, CMP #### [facility] [address] [place] [address] [address] Sheldon Cordero AST [Catalytic activity/Vol] 11 U/L Critically low 15-37 [facility] Comment on above: Performed By: #### L IPID, TSH, CMP #### [facility] [address] [place] [address] [address] Sheldon Cordero Bilirubin [Mass/Vol] 0.3 mg/dL Normal 0.2-1.0 [facility] Comment on above: Performed By: #### L IPID, TSH, CMP #### [facility] [address] [place] [address] [address] Sheldon Cordero Calcium [Mass/Vol] 9.1 mg/dL Normal 8.5-10.1 [facility] Comment on above: Performed By: #### L IPID, TSH, CMP #### [facility] [address] [place] [address] [address] Sheldon Cordero Chloride [Moles/Vol] 106 mmol/L Normal 98-107 [facility] Comment on above: Performed By: #### L IPID, TSH, CMP #### [facility] [address] [place] [address] [address] Sheldon Cordero CO2 [Moles/Vol] 30.6 mmol/L Normal 21.0-32.0 [facility] Comment on above: Performed By: #### L IPID, TSH, CMP #### [facility] [address] [place] [address] [address] Sheldon Cordero Creatinine [Mass/Vol] 0.93 mg/dL Normal 0.55-1.02 [facility] Comment on above: Performed By: #### L IPID, TSH, CMP #### [facility] [address] [place] [address] [address] Sheldon Cordero EGFR-AF ETHIOPIAN >60 Normal >=60 [facility] Comment on above: Performed By: #### L IPID, TSH, CMP #### [facility] [address] [place] [address] [address] Sheldon Cordero EGFR-NON AF ETHIOPIAN =60 Normal >=60 [facility] Comment on above: Performed By: #### L IPID, TSH, CMP #### [facility] [address] [place] [address] [address] Sheldon Cordero Globulin (S) [Mass/Vol] 4.0 g/dL Normal [facility] Comment on above: Performed By: #### L IPID, TSH, CMP #### [facility] [address] [place] [address] [address] Sheldon Cordero Glucose [Mass/Vol] 101 mg/dL Normal 74-106 [facility] Comment on above: Performed By: #### L IPID, TSH, CMP #### [facility] [address] [place] [address] [address] Sheldon Cordero Potassium [Moles/Vol] 4.5 mmol/L Normal 3.5-5.1 [facility] Comment on above: Performed By: #### L IPID, TSH, CMP #### [facility] [address] [place] [address] [address] Sheldon Cordero Protein [Mass/Vol] 7.4 g/dL Normal 6.4-8.2 [facility] Comment on above: Performed By: #### L IPID, TSH, CMP #### [facility] [address] [place] [address] [address] Sheldon Cordero Sodium [Moles/Vol] 143 mmol/L Normal 136-145 [facility] Comment on above: Performed By: #### L IPID, TSH, CMP #### [facility] [address] [place] [address] Dr. Sheldon Cordero Urea nitrogen [Mass/Vol] 18.0 mg/dL Normal 7.0-18.0 [facility] Comment on above: Performed By: #### L IPID, TSH, CMP #### [facility] [address] [place] [address] [address] Sheldon Cordero Urea nitrogen/Creatinine [Mass ratio] 19.4 mg/mg Normal [facility] Comment on above: Performed By: #### L IPID TSH, CMP #### [facility] [address] [place] [address] Dr. Sheldon Cordero TSHon 11-30-2021 TSH 2.774 uIU/mL Normal 0.358-3.740 [facility] Comment on above: Performed By: #### L IPID, TSH, CMP #### [facility] [address] [place] [address] Dr. Sheldon Cordero Lactic Acidon 11-02-2018 Lactate [Mass/Vol] 7.5 mg/dL Normal 4.5-19.8 [facility] Comment on above: Performed By: #### 2 [id number] #### [facility] [address] [place] [address] CNOVon 06-11-2018 CNOV Office Visit (YOVANNYA ) JOSS WASHINGTON ([id number]) 1950 F Date Time Provider Department 06/11/18 [...] pathologic stage 0 (Tis Nx ?M0), ER-positive, CA-positive, s/p partial mastectomy ? ? INTERVAL HISTORY: [...] M.D., FACRO ? cc: Lawrence Rai MD [address] [place] [address] ? Katherine Downs MD [facility] [address] [place] [address] [place] [address] ? Dr. Berman ? This note was dictated with Jazmin Naturally Speaking and may contain some grammatical errors due to limitations of the software. Dexter De León RN, was present in the examination room throughout the encounter. 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 Author Type: Physician Type: Progress Notes Filed: 06/11/2018 2:48 PM Note Text: Radiation Oncology - Follow Up Note PATIENT NAME: Joss Washington PATIENT DIAGNOSIS: ?DCIS of the Right breast, UIQ, pathologic stage 0 (Tis Nx ?M0), ER-positive, CA-positive, s/p partial mastectomy ? ? INTERVAL HISTORY: [...] examination. ? Signed by: Farheen Cronin M.D., [facility] ? cc: Lawrence Rai MD [facility] [place] [address] ? Katherine Downs MD [facility] [address] [place] [address] ? Dr. Berman ? This note was dictated with Jazmin Naturally Speaking and may contain some grammatical errors due to limitations of the software. Dexter De León RN, was present in the examination room throughout the encounter. Normal [facility] CNOVon 02-12-2018 CNOV Office Visit (RADTSA ) JOSS WASHINGTON ([id number]) 1950 F Date Time Provider Department 02/12/18 [...] pathologic stage 0 (Tis Nx ?M0), ER-positive, CA-positive, s/p partial mastectomy ? ? INTERVAL HISTORY: [...] M.D., KAY ? cc: Lawrence Rai MD [facility] [place] [address] ? Katherine Downs MD [facility] [address] [place] [address] ? Dr. Berman ? This note was dictated with Radhaon Naturally Speaking and may contain some grammatical errors due to limitations of the software. Dexter De León RN, was present in the examination room throughout the encounter. Referring Provider: LAWRENCE RAI [[id number]] Allergies As of Date: 02/12/2018 (No Known [...] by FARHEEN CRONIN MD on 02/12/18 Normal [facility] PROGRESSon 02-12-2018 Protein mass conc HNO ID: [id number] Author: Farheen Cronin Service: (none) Author Type: Physician Type: Progress Notes Filed: 02/12/2018 10:40 AM Note Text: Radiation Oncology - Follow Up Note PATIENT NAME: Joss Washington PATIENT DIAGNOSIS: ?DCIS of the Right breast, UIQ, pathologic stage 0 (Tis Nx ?M0), ER-positive, CA-positive, s/p partial mastectomy ? ? INTERVAL HISTORY: [...] M.D., FACRO ? cc: Lawrence Rai MD [address] [place] [id number] ? Katherine Downs MD [facility] [address] [place] [address] ? Dr. Berman ? This note was dictated with Jazmin Naturally Speaking and may contain some grammatical errors due to limitations of the software. Dexter De León RN, was present in the examination room throughout the encounter. Normal [facility] PROGRESSon 12-10-2017 Protein mass conc HNO ID: [id number] Author: Lisa Willams Service: (none) Author Type: [...] Dr. Downs at this time. Lisa Willams APRN.MASTER WELDER Normal [facility] CNOVon 12-04-2017 CNOV Office Visit (RADTSA ) JOSS WASHINGTON ([id number]) 1950 F Date Time Provider Department 12/04/17 [...] pathologic stage 0 (Tis Nx ?M0), ER-positive, CA-positive, s/p partial mastectomy ? ? INTERVAL HISTORY: [...] examination. ? Signed by: Farheen Cronin M.D., [facility] ? cc: Lawrence Rai MD [address] [place] [id number] ? Katherine Downs MD [facility] [address] [place] [address] ? Dr. Berman ? This note was dictated with Dragon Naturally Speaking and may contain some grammatical errors due to limitations of the software. Anatoliy Ha MA was present in the examination room throughout the encounter. Referring Provider: FARHEEN CRONIN [[id number]] Allergies As of Date: 12/04/2017 (No Known [...] Status:Closed by FARHEEN CRONIN MD on 12/04/17 [facility] CNOVSPon 12-04-2017 CNOVSP Visit (SP) Office (HEMASA) JOSS WASHINGTON ([id number]) 1950 F Date Time Provider Department 12/04/17 11:00 AM LISA WILLAMS (MASTER WELDER) CHRISS During your visit today, we recorded [...] Dr. Downs at this time. Lisa Willams APRN.MASTER WELDER Referring Provider: FARHEEN CRONIN [[id number]] Allergies As of Date: 12/04/2017 (No Known [...] breast*INVALID FOR* Encounter Status:Closed by LISA WILLAMS MASTER WELDER on 12/10/17 Normal [facility] PROGRESSon 12-04-2017 Protein mass conc HNO ID: [id number] Author: Farheen Cronin Service: (none) Author Type: Physician Type: Progress Notes Filed: 12/04/2017 1:55 PM Note Text: Radiation Oncology - Follow Up Note PATIENT NAME: Joss Washington PATIENT DIAGNOSIS: DCIS of the Right breast, UIQ, pathologic stage 0 (Tis Nx ?M0), ER-positive, CA-positive, s/p partial mastectomy ? ? INTERVAL HISTORY: [...] M.D., FACRO ? cc: Lawrence Rai MD [address] [place] [phone] ? Katherine Downs MD [facility] [address] [place] [address] ? [address]. Berman ? This note was dictated with Jazmin Naturally Speaking and may contain some grammatical errors due to limitations of the software. Anatoliy Ha MA was present in the examination room throughout the encounter. Normal [facility] CNOVon 10-30-2017 CNOV Office Visit (RADTSA ) JOSS WASHINGTON ([id number]) 1950 F Date Time Provider Department 10/30/17 [...] pathologic stage 0 (Tis Nx M0), ER-positive, CA-positive, s/p partial mastectomy ? INTERVAL HISTORY: Mrs. [...] Cronin M.D., FACRO cc: Lawrence Rai MD [facility] [place] [address] ? Katherine Downs MD [facility] [address] [place] [address] ? Dr. Berman ? This note was dictated with Dragon Naturally Speaking and may contain some grammatical errors due to limitations of the software. Dexter De León RN was present in the examination room throughout the encounter. Referring Provider: FARHEEN CRONIN [[id number]] Allergies As of Date: 10/30/2017 (No Known [...] by FARHEEN CRONIN MD on 10/30/17 Normal [facility] PROGRESSon 10-30-2017 Protein mass conc HNO ID: [id number] Author: Farheen Cronin Service: (none) Author Type: Physician Type: Progress Notes Filed: 10/30/2017 3:16 PM Note Text: Radiation Oncology - Follow Up Note PATIENT NAME: Joss Washington PATIENT DIAGNOSIS: DCIS of the Right breast, UIQ, pathologic stage 0 (Tis Nx M0), ER-positive, CA-positive, s/p partial mastectomy ? INTERVAL HISTORY: Mrs. [...] Cronin M.D., FACRO cc: Lawrence Rai MD [facility] [place] [address] ? Katherine Downs MD [facility] [address] [place] [address] ? Dr. Berman ? This note was dictated with Jazmin Naturally Speaking and may contain some grammatical errors due to limitations of the software. Dexter De León RN was present in the examination room throughout the encounter. Normal [facility] PROGRESSon 10-16-2017 Protein mass conc HNO ID: [id number] Author: aFrheen Cronin Service: (none) Author Type: Physician Type: Progress Notes Filed: 10/17/2017 12:34 AM Note Text: [facility] Radiation Oncology Department RADIATION ONCOLOGY - COMPLETION NOTE PATIENT: JOSS WASHINGTON : 1950 DATES OF TREATMENT: 08/27/2017 to 10/15/2017 DIAGNOSIS: DCIS of the Right breast, UIQ, pathologic stage 0 (Tis Nx M0), ER-positive, CA-positive, s/p partial mastectomy AREA TREATED: Right Breast [...] 10/16/20179:57 AM cc: Dr. Lawrence Downs Normal [facility] CNOVon 10-14-2017 CNOV Office Visit (RADTSA ) JOSS WASHINGTON ([id number]) 1950 F Date Time Provider Department 10/14/17 [...] the Right?breast, UIQ,?pathologic?stage 0 (Tis Nx M0),?ER-positive, CA-positive, s/p?partial mastectomy ? COURSE: definitive AREA TREATED: [...] by FARHEEN CRONIN MD on 10/14/17 Normal [facility] PROGRESSon 10-14-2017 Protein mass conc HNO ID: [id number] Author: Farheen Cronin Service: (none) Author Type: Physician Type: Progress Notes Filed: 10/14/2017 2:16 PM Note Text: Radiation Oncology - On Treatment Review (OTR) Note PATIENT NAME: Joss Washington PATIENT DIAGNOSIS: DCIS?of the Right?breast, UIQ,?pathologic?stage 0 (Tis Nx M0),?ER-positive, CA-positive, s/p?partial mastectomy ? COURSE: definitive AREA TREATED: [...] as planned. ? Farheen Cronin MD? Normal [facility] CNOVon 10-07-2017 CNOV Office Visit (RADTSA ) JOSS WASHINGTON ([id number]) 1950 F Date Time Provider Department 10/07/17 [...] the Right?breast, UIQ,?pathologic?stage 0 (Tis Nx M0),?ER-positive, CA-positive, s/p?partial mastectomy ? COURSE: definitive AREA TREATED: [...] by FARHEEN CRONIN MD on 10/07/17 Normal [facility] PROGRESSon 10-07-2017 Protein mass conc HNO ID: [id number] Author: Farheen Cronin Service: (none) Author Type: Physician Type: Progress Notes Filed: 10/07/2017 11:21 AM Note Text: Radiation Oncology - On Treatment Review (OTR) Note PATIENT NAME: Joss Washington PATIENT DIAGNOSIS: DCIS?of the Right?breast, UIQ,?pathologic?stage 0 (Tis Nx M0),?ER-positive, CA-positive, s/p?partial mastectomy ? COURSE: definitive AREA TREATED: [...] as planned. ? Farheen Cronin MD? Normal [facility] CNOVon 09-30-2017 CNOV Office Visit (RADTSA ) JOSS WASHINGTON ([id number]) 1950 F Date Time Provider Department 09/30/17 [...] the Right?breast, UIQ,?pathologic?stage 0 (Tis Nx M0),?ER-positive, CA-positive, s/p?partial mastectomy ? COURSE: definitive AREA TREATED: [...] by FARHEEN CRONIN MD on 09/30/17 Normal [facility] PROGRESSon 09-30-2017 Protein mass conc HNO ID: [id number] Author: Farheen Cronin Service: (none) Author Type: Physician Type: Progress Notes Filed: 09/30/2017 11:48 AM Note Text: Radiation Oncology - On Treatment Review (OTR) Note PATIENT NAME: Joss Washington PATIENT DIAGNOSIS: DCIS?of the Right?breast, UIQ,?pathologic?stage 0 (Tis Nx M0),?ER-positive, CA-positive, s/p?partial mastectomy ? COURSE: definitive AREA TREATED: [...] as planned. ? Farheen Cronin MD? Normal [facility] CNOVon 09-22-2017 CNOV Office Visit (RADTSA ) JOSS WASHINGTON ([id number]) 1950 F Date Time Provider Department 09/22/17 [...] the Right?breast, UIQ,?pathologic?stage 0 (Tis Nx M0),?ER-positive, CA-positive, s/p?partial mastectomy ? COURSE: definitive AREA TREATED: [...] by FARHEEN CRONIN MD on 09/22/17 Normal [facility] PROGRESSon 09-22-2017 Protein mass conc HNO ID: [id number] Author: Farheen Cronin Service: (none) Author Type: Physician Type: Progress Notes Filed: 09/22/2017 2:38 PM Note Text: Radiation Oncology - On Treatment Review (OTR) Note PATIENT NAME: Joss Washington PATIENT DIAGNOSIS: DCIS?of the Right?breast, UIQ,?pathologic?stage 0 (Tis Nx M0),?ER-positive, CA-positive, s/p?partial mastectomy ? COURSE: definitive AREA TREATED: [...] as planned. ? Farheen Cronin MD Normal [facility] CBC and Differentialon 09-18 Abs Baso 0.03 k/uL Normal 0.00-0.10 [facility] Abs [place] 0.45 k/uL Normal 0.00-0.86 [facility] Abs Neut 5.16 k/uL Normal 1.45-7.50 [facility] Basophils/100 WBC (Bld) 0.4 % Normal [facility] Eosinophils #/vol (Bld) 0.23 10*3/uL Normal 0.00-0.45 [facility] Eosinophils/100 WBC (Bld) 3.2 % Normal [facility] Erythrocyte distribution width Ratio (RBC) 15.0 % Normal 11.5-15.0 [facility] Hematocrit Volume Fraction (Bld) 39.1 % Normal 36.0-46.0 [facility] Hemoglobin mass conc (Bld) 13.0 g/dL Normal 11.5-15.5 [facility] Lymphocytes #/vol (Bld) 1.40 10*3/uL Normal 1.00-4.00 [facility] Lymphocytes/100 WBC (Bld) 19.3 % Normal [facility] MCH Entitic mass (RBC) 30.6 pG Normal 26.0-34.0 [facility] MCHC mass conc (RBC) 33.2 g/dL Normal 30.5-36.0 [facility] MCV Entitic volume (RBC) 92.0 fL Normal 80.0-100.0 [facility] Monocytes/100 WBC (Bld) 6.2 % Normal [facility] Neutrophils/100 WBC (Bld) 70.9 % Normal [facility] Platelet mean volume Entitic volume (Bld) 9.5 fL Normal 9.0-12.7 [facility] Platelets #/vol (Bld) 272 10*3/uL Normal 150-400 [facility] RBC #/vol (Bld) 4.25 10*6/uL Normal 3.90-5.20 [facility] WBC #/vol (Bld) 7.27 10*3/uL Normal 3.70-11.00 [facility] CNOVon 09-18-2017 CNOV Office Visit (RADTSA ) JOSS WASHINGTON ([id number]) 1950 F Date Time Provider Department 09/18/17 [...] De León RN Referring Provider: FARHEEN CRONIN [[id number]] Allergies As of Date: 09/18/2017 (No Known [...] Notes: >> Dexter Sykes) CLARA De León [facility] Sep 18, 2017 10:01 AM Status: [...] Status:Closed by DEXTER DE LEÓN on 09/18/17 [facility] CNOVon 09-16-2017 CNOV Office Visit (RADTSA ) JOSS WASHINGTON ([id number]) 1950 F Date Time Provider Department 09/16/17 [...] the Right?breast, UIQ,?pathologic?stage 0 (Tis Nx M0),?ER-positive, CA-positive, s/p?partial mastectomy ? 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 COURSE: definitive AREA TREATED: [...] treatment as planned. ? 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 COURSE: definitive AREA TREATED: [...] requiring intervention. Signed by: Jem Santana MD [facility] CNOVon 09-08-2017 CNOV Office Visit (RADTSA ) FEILXJOSS MIX ([id number]) 1950 F Date Time Provider Department 09/08/17 [...] the Right?breast, UIQ,?pathologic?stage 0 (Tis Nx M0),?ER-positive, CA-positive, s/p?partial mastectomy ? COURSE: definitive AREA TREATED: [...] by JEM SANTANA MD on 09/18/17 Normal [facility] CBC and Differentialon 09-04 Abs Baso 0.03 k/uL Normal <0.11 [facility] Comment on above: Performed By: #### C BCDIF ####[facility] [place] [place], [place] [phone] Abs [place] 0.45 k/uL Normal <0.87 [facility] Comment on above: Performed By: #### C BCDIF ####[place] [address] [place] [phone] Abs Neut 3.74 k/uL Normal 1.45-7.50 [facility] Comment on above: Performed By: #### C BCDIF ####[place] [address] [place] [phone] Basophils/100 WBC (Bld) 0.5 % Normal [facility] Comment on above: Performed By: #### C BCDIF ####[place] [phone] Comment AGC=3.68 Normal [facility] Comment on above: Result Comment: Prel iminary result. Interpret with caution. Final results may vary. Results requested and read back by: /09/04/1710/15/1026/OSITO CASTELLON Performed By: #### C BCDIF ####[place] [phone] Eosinophils #/vol (Bld) 0.23 10*3/uL Normal <0.46 [facility] Comment on above: Performed By: #### C BCDIF ####[address] [place] [phone] Eosinophils/100 WBC (Bld) 3.7 % Normal [facility] Comment on above: Performed By: #### C BCDIF ####[place] [phone] Erythrocyte distribution width Ratio (RBC) 15.5 % High 11.5-15.0 [facility] Comment on above: Performed By: #### C BCDIF ####[place] [phone] Hematocrit Volume Fraction (Bld) 37.1 % Normal 36.0-46.0 [facility] Comment on above: Performed By: #### C BCDIF ####[place] [address] [address], [place] [phone] Hemoglobin mass conc (Bld) 12.2 g/dL Normal 11.5-15.5 [facility] Comment on above: Performed By: #### C BCDIF ####[place] [address] [place] [place], [place] [phone] Lymphocytes #/vol (Bld) 1.78 10*3/uL Normal 1.00-4.00 [facility] Comment on above: Performed By: #### C BCDIF ####[place] [address] [address], [place] [phone] Lymphocytes/100 WBC (Bld) 28.6 % Normal [facility] Comment on above: Performed By: #### C BCDIF ####[address] [place], [place] [phone] MCH Entitic mass (RBC) 30.3 pG Normal 26.0-34.0 [facility] Comment on above: Performed By: #### C BCDIF ####[place] [address] [place] [place] [phone] MCHC mass conc (RBC) 32.9 g/dL Normal 30.5-36.0 [facility] Comment on above: Performed By: #### C BCDIF ####[place] [address] [address] [place] [phone] MCV Entitic volume (RBC) 92.1 fL Normal 80.0-100.0 [facility] Comment on above: Performed By: #### C BCDIF ####[place] [address] [address] [place] [phone] Monocytes/100 WBC (Bld) 7.2 % Normal [facility] Comment on above: Performed By: #### C BCDIF ####[place] [address] [place] [place] [phone] Neutrophils/100 WBC (Bld) 60.0 % Normal [facility] Comment on above: Performed By: #### C BCDIF ####[address] [phone] Platelet mean volume Entitic volume (Bld) 9.3 fL Normal 9.0-12.7 [facility] Comment on above: Performed By: #### C BCDIF ####[address] [phone] Platelets #/vol (Bld) 285 10*3/uL Normal 150-400 [facility] Comment on above: Performed By: #### C BCDIF ####[address] [phone] RBC #/vol (Bld) 4.03 10*6/uL Normal 3.90-5.20 [facility] Comment on above: Performed By: #### C BCDIF ####[address] [phone] WBC #/vol (Bld) 6.19 10*3/uL Normal 3.70-11.00 [facility] Comment on above: Performed By: #### C BCDIF ####[facility] [place] [place] [address] [phone] [place] 09-04-2017 CNOV Office Visit (RADGENAROA ) JOSS WASHINGTON ([id number]) 1950 F Date Time Provider Department 09/04/17 [...] De León RN Referring Provider: FARHEEN CRONIN [[id number]] Allergies As of Date: 09/04/2017 (No Known [...] Visit Notes: >> Dexter De León RN [facility] Sep 04, 2017 12:44 PM Status: [...] Status:Closed by DEXTER DE LEÓN on 09/04/17 [facility] CNOVon 09-02-2017 CNOV Office Visit (RADTSA ) JOSS WASHINGTON ([id number]) 1950 F Date Time Provider Department 09/02/17 [...] pathologic stage 0 (Tis Nx M0), ER-positive, CA-positive, s/p partial mastectomy COURSE: definitive AREA TREATED: [...] right breast*INVALID FOR* Visit Notes: >> Anatoliy (Skid Wrapperlamine Ha RN loni Sep 02, 2017 10:09 AM Status: Signed Status: Post-menopausal. Encounter Status:Closed by FARHEEN CRONIN MD on 09/02/17 [facility] PROGRESSon 09-02-2017 Protein mass conc HNO ID: [id number] Author: Farheen Cronin Service: (none) Author Type: Physician Type: Progress Notes Filed: 09/02/2017 1:31 PM Note Text: Radiation Oncology - On Treatment Review (OTR) Note PATIENT NAME: Joss Washington PATIENT DIAGNOSIS: DCIS of the Right breast, UIQ, pathologic stage 0 (Tis Nx M0), ER-positive, CA-positive, s/p partial mastectomy COURSE: definitive AREA TREATED: [...] radiation treatment as planned. Farheen Cronin MD [facility] CNOVon 08-27-2017 CNOV Office Visit (RADTSA ) FELIXJOSS ([id number]) 1950 F Date Time Provider Department 08/27/17 [...] the Right?breast, UIQ,?pathologic?stage 0 (Tis Nx M0),?ER-positive, CA-positive, s/p?partial mastectomy ? Plan and MU calculations [...] Jem Santana MD Referring Provider: JEM SANTANA [[id number]] Allergies As of Date: 08/27/2017 (No Known [...] 2017 2:04 PM Status: Signed Status: Post-menopausal. 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 Plan and MU calculations [...] treatment. Signed by: Jem Santana MD Normal [facility] CT NON-RADIOLOGY -NBNRo n 08-20-[address] [facility] [address] NON-RADIOLOGY -NBNR [facility] - CT Images - Obtained Outside of Imaging [place] [id number] Normal [facility] CNCNPATEDon 08-20-2017 CNCNPATED Education (RADTSA) JOSS WASHINGTON ([id number]) 1950 F Date Time Provider Department 08/20/17 ANATOLIY HA) RADGENAROA Reason for Visit: Patient Education [91] Visit Notes: >> Anatoliy Ha RN FriAugust 20, 2017 3:46 PM Status: Signed Radiation Therapy - Patient Education Note PATIENT NAME: Joss Washington PATIENT August 20, 2017 [facility] FACILITY/LOCATION: [facility] READINESS TO LEARN Cognitive [...] 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 Was approved? No Signed by: Anatoliy Ha [...] Encounter Status:Closed by ANATOLIY HA on 08/20/17 [facility] CNOVon 08-20-2017 CNOV Office Visit (RADTSA ) JOSS WASHINGTON ([id number]) 1950 F Date Time Provider Department 08/20/17 [...] pathologic stage 0 (Tis Nx M0), ER-positive, CA-positive, s/p partial mastectomy. HPI: 67 year old [...] with her . 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 COMPLETE REVIEW [...] Farheen Cronin MD cc: Lawrence Rai MD [address] [place], [place] [id number] Katherine Downs MD [facility] [address] [place] [address] Dr. Berman This note was dictated with Dragon Naturally Speaking and may contain some grammatical errors due to limitations of the software. Referring Provider: KATHERINE DOWNS [[id number]] Allergies As of Date: 08/20/2017 (No Known [...] by FARHEEN CRONIN MD on 08/20/17 Normal [facility] PROGRESSon 08-20-2017 Protein mass conc HNO ID: [id number] Author: Farheen Cronin Service: (none) Author Type: Physician Type: Progress Notes Filed: 08/20/2017 3:39 PM Note Text: Radiation Oncology - New Patient/Consult Note PATIENT NAME: Joss Washington PATIENT REQUESTING PROVIDER: Dr. Katherine Downs DIAGNOSIS: 67 year old female with DCIS of the Right breast, UIQ, pathologic stage 0 (Tis Nx M0), ER-positive, CA-positive, s/p partial mastectomy. HPI: 67 year old [...] with her . 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 COMPLETE [...] Farheen Cronin MD cc: Lawrence Rai MD [address] [place] [address] [place] [address] Katherine Downs MD [facility] [address] [place] [address] Dr. Berman This note was dictated with Dragon Naturally Speaking and may contain some grammatical errors due to limitations of the software. 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 / NRS 08/20/20173:59 PM Normal [facility] Protein [facility] HNO ID: [id number] Author: Farheen Cronin Service: (none) Author Type: Physician Type: Progress Notes Filed: 08/27/2017 12:34 AM Note Text: JOSS WASHINGTON [id number] 08/20/2017 [facility] Department of Radiation Oncology Treatment Planning [...] Signed Farheen Cronin M.D. 08/26/20171:02 PM Normal [facility] CNOVSPon 08-14-2017 CNOVSP Visit (SP) Office (HEMACL) JOSS WASHINGTON ([id number]) 1950 F Date Time Provider Department 08/14/17 [...] Katherine Downs MD Referring Provider: GEREMIAS BERMAN [[id number]] Allergies As of Date: 08/14/2017 (No Known Allergies) Date Reviewed: 08/14/2017 Reviewed by: Iesha Luis - Fully Assessed Primary Visit Diagnosis:Ductal carcinoma in situ (DCIS) of right breast [D05.11] Order(s):RAD/ONC CONSULT [9037] Order #: [id number]: 1 Prescriptions as of 08/14/2017 Sig: VENTOLIN [...] by KATHERINE DOWNS MD on 08/14/17 Normal [facility] PROGRESSon 08-14-2017 Protein mass conc HNO ID: [id number] Author: Katherine Downs Service: (none) Author Type: [...] - RAD/ONC CONSULT Katherine Downs MD Normal [facility] US-US GUIDE LOCAL BREAST RT IMPORTon 07-04-2017 US-US GUIDE LOCAL BREAST RT IMPORT Images were obtained outside of [facility] [id number] Normal [facility] MAMM OUTSIDE DICOM IMPORT -N BNRon 06-18-2017 MAMM OUTSIDE DICOM IMPORT -NBNR Images were obtained outside of [facility] [id number] Normal [facility] Encounters Encounter Date Encounter Type Care Provider Facility Start: 05-07-2024 End: 05-07-2024 ambulatory JOHN YIN [facility] Start: 03-16-2022 End: 03-17-[address] LAWRENCE [facility]I Facility:[facility] Start: 02-28-[address] LAWRENCE RAI Facility :[facility] Start: 02-08-2022 End: 02-09-[address] LAWRENCE RAI Facility:[facility] Start: 11-30-2021 End: 12-01-[address] LAWRENCE RAI Facility:[facility] Start: 06-11-2018 End: 06-15-2018 Patient encounter procedure FARHEEN CRONIN [facility] Start: 02-12-2018 End: 02-13-2018 Patient encounter procedure FARHEEN CRONIN [facility] Start: 12-04-2017 End: 12-11-2017 Patient encounter procedure LISA (MASTER WELDER) ЕКАТЕРИНА [facility] Start: 10-30-2017 End: 10-30-2017 Patient encounter procedure FARHEEN CRONIN [facility] Start: 10-15-2017 End: 10-20-2017 Patient encounter procedure KATHERINE DOWNS [facility] Start: 10-14-2017 End: 10-14-2017 Patient encounter procedure FARHEEN CRONIN [facility] Start: 10-13-2017 End: 10-15-2017 Patient encounter procedure KATHERINE DOWNS [facility] Start: 10-09-2017 End: 10-30-2017 Patient encounter procedure KATHERINE DOWNS [facility] Start: 10-08-2017 End: 10-10-2017 Patient encounter procedure KATHERINE DOWNS [facility] Start: 10-07-2017 End: 10-07-2017 Patient encounter procedure FARHEEN CRONIN [facility] Start: 10-06-2017 End: 10-10-2017 Patient encounter procedure KATHERINE DOWNS [facility] Start: 10-03-2017 End: 10-08-2017 Patient encounter procedure KATHERINE DOWNS [facility] Start: 10-02-2017 End: 10-20-2017 Patient encounter procedure KATHERINE DOWNS [facility] Start: 09-30-2017 End: 09-30-2017 Patient encounter procedure FARHEEN CRONIN [facility] Start: 09-29-2017 End: 10-06-2017 Patient encounter procedure KATHERINE DOWNS [facility] Start: 09-26-2017 End: 10-02-2017 Patient encounter procedure KATHERINE DOWNS [facility] Start: 09-25-2017 End: 09-29-2017 Patient encounter procedure KATHERINE DOWNS [facility] Start: 09-24-2017 End: 10-06-2017 Patient encounter procedure KATHERINE DOWNS [facility] Start: 09-23-2017 End: 09-29-2017 Patient encounter procedure KATHERINE DOWNS [facility] Start: 09-22-2017 End: 09-22-2017 Patient encounter procedure FARHEEN CRONIN [facility] Start: 09-19-2017 End: 09-22-2017 Patient encounter procedure KATHERINE DOWNS [facility] Start: 09-18-2017 End: 09-18-2017 Patient encounter procedure FARHEEN CRONIN [facility] Start: 09-17-2017 End: 09-30-2017 Patient encounter procedure KATHERINE DOWNS [facility] Start: 09-16-2017 End: 09-16-2017 Patient encounter procedure FARHEEN CRONIN [facility] Start: 09-15-2017 End: 09-17-2017 Patient encounter procedure KATHERINE DOWNS [facility] Start: 09-12-2017 End: 09-17-2017 Patient encounter procedure KATHERINE DOWNS [facility] Start: 09-11-2017 End: 09-15-2017 Patient encounter procedure KATHERINE DOWNS [facility] Start: 09-10-2017 End: 09-22-2017 Patient encounter procedure KATHERINE DOWNS [facility] Start: 09-09-2017 End: 09-15-2017 Patient encounter procedure KATHERINE DOWNS [facility] Start: 09-08-2017 End: 09-08-2017 Patient encounter procedure JEM SANTANA [facility] Start: 09-05-2017 End: 09-15-2017 Patient encounter procedure KATHERINE DOWNS [facility] Start: 09-04-2017 End: 09-04-2017 Patient encounter procedure FARHEEN CRONIN [facility] Start: 09-03-2017 End: 09-15-2017 Patient encounter procedure KATHERINE DOWNS [facility] Start: 09-02-2017 End: 09-02-2017 Patient encounter procedure FARHEEN CRONIN [facility] Start: 09-01-2017 End: 09-04-2017 Patient encounter procedure KATHERINE DOWNS [facility] Start: 08-29-2017 End: 09-01-2017 Patient encounter procedure KATHERINE DOWNS [facility] Start: 08-28-2017 End: 09-01-2017 Patient encounter procedure KATHERINE DOWNS [facility] Start: 08-27-2017 End: 08-27-2017 Patient encounter procedure JEM SANTANA [facility] Start: 08-20-2017 End: 08-21-2017 Patient encounter procedure FARHEEN CRONIN [facility] Start: 08-14-2017 End: 08-15-2017 [facility] Payers Date Payer Category Payer Medicare [id number] 1958 Self-pay [id number] 1958 Unknown [id number] 1950 Unknown [id number] 2.16.84 [id number] 1950 Unknown [id number] 2.16.84 [id number] 1950 Unknown [id number] 2.16.84 [id number] 1950 Unknown [id number] 2.16.84 [id number] Progress note 05-07-2024 Note Date & Type Note Facility 05-07-2024 Note [facility] Note Reason for cardiology consult: TIA Chief Complaint: dyspnea on exertion HPI: Joss Washington is a 73 y.o. female with history of hypertension, hyperlipidemia, recent TIA, and right breast cancer Patient [facility] with vision changes which [...] has no past medical history of Stroke ([facility]). Surgical History She has a [...] TIA, no ische (more content not included)... [facility] Summary Purpose Family History No Family History Records FoundNo Family History Records FoundNo Family History Records FoundNo Family History Records Found Advance Directives No Advanced Directives Records FoundNo Advanced Directives Records FoundNo Advanced Directives Records FoundNo Advanced Directives Records Found Additional Source Comments INFORMATION SOURCE (unrecogn ized section and content) DATE CREATED AUTHOR 06/15/2018 [facility] DATE CREATED AUTHOR AUTHOR'S ORGANIZ ATION 07/26/2019 [facility] DATE CREATED AUTHOR AUTHOR'S ORGANIZ ATION 03/22/2022 [facility] DATE CREATED AUTHOR AUTHOR'S ORGANIZ ATION 05/18/2024 [facility] FOR RECORDS PERTAINING TO [...] BE BASED ON THE PRIMARY CLINICAL RECORDS. [employer] [facility]. provides no warranty or guarantee of the accuracy or completeness of information in this document.
== END 2024-06-15 08:24 | disposition home or self-care (01) ==
LOC: MRI 08:23
PROVIDERS: PCP Family Medicine; Visit Provider Family Medicine
DX: Z01.818 Encounter for other preprocedural examination (principal); D18.00 Hemangioma unspecified site; D32.0 Benign neoplasm of cerebral meninges
CPT/HCPCS: 70553; A9575

== ENCOUNTER 2024-08-10 20:52 | Outpatient (OUT) | payer MEDICARE, OTHER, SELFPAY ==
--- OUTSIDE RECORDS SUMMARY | 2024-08-10 20:56 | XMS_ITS | CCD ---
Author Organization [facility] Care Team Providers Care Record Producer Name Role Phone KATHERINE DOWNS Attending Unavailable [...] CRONIN, KHALID R Referring Unavailable LISA WILLAMS ([facility]) Attending Unavailabl e CRONIN, KHALID R Referring Unavailable CRONIN, KHALID R Attending Unavailable LAWRENCE RAI Referring Unavailable CRONIN, KHALID R Attending Unavailable LAWRENCE RAI Referring Unavailable BETY, DR BRAVO Primary Care Unavailable BETY, DR BRAVO Admitting Unavailable HOY, DR BRAVO Attending Unavailable HOY, DR BRAVO Consulting Unavailable Libia Gibbs Consulting Unavailable BETY, DR BRAVO Admitting Unavailable HOStu, DR BRAVO Attending Unavailable BETY, DR BRAVO Consulting Unavailable BETY, DR BRAVO Primary Care Unavailable Zisukhwinder, DR Taylor Consulting Unavailable HOY, DR BRAVO Admitting Unavailable HOY, DR BRAVO Attending Unavailable BETY, DR BRAVO Consulting Unavailable BETY, DR BRAVO Primary Care Unavailable DR LAWRENCE RAI Admitting Unavailable BETY, DR BRAVO Attending Unavailable DR LAWRENCE RAI Primary Care Unavailable JOHN YIN Attending Unavailable JOHN YIN Attending Unavailable Problems Active [...] [Hyperlipidemia, unspecified] Onset: 05-07-2024 Chronic Essential hypertension (3 sources) Essential (primary) hypertension; Translations: [ESSENTIAL PRIMARY HYPERTENSION] [...] Value Interpretation Reference Range Facility Office Visiton 08-06-2024 Follow-up visit [id number] FelixJoss 1950 Date Provider Department Center 08/06/2024 JOHN BIGGS Family History Problem Relation Age of Onset Hypertension Mother Stroke Mother Hyperlipidemia Mother Hypertension Father Coronary artery disease Father Hyperlipidemia Father Cancer Father Family Status - Relation Status Age at Mother Father Level of Service:[address] [place] OFFICE/OUTPATIENT ESTABLISHED MOD MDM 30 MIN Reason for Visit and Comments: Hyperlipidemia [182] - Had lipid in May 2024. Hypertension [910167] - She brought BP log with her. Shortness of Breath [092620] - She attributes her MORENO to her weight. Says it's hard for her to walk a lot due to knee pain. Palpitations [946008] - Hasn't had palpitations recently. Transient Ischemic Attack [770088] - Had bubble study in May 2024. She wants to know if she can stop Plavix due to TIA being ruled out. [facility] Office Visiton 05-07-2024 Follow-up visit [id number] Joss Washington 1950 Provider Department Center 05/07/2024 JOHN BIGGS Family History Problem Relation Age of Onset Hypertension Mother Stroke Mother Hyperlipidemia Mother Hypertension Father Coronary artery disease Father Hyperlipidemia Father Cancer Father Family Status - Relation Status Age at Mother Father Level of Service:41712 [place] OFFICE/OUTPATIENT NEW MODERATE MDM 45 MINUTES Reason for Visit and Comments: Chest Pain [183251] - Patient describes it as chest discomfort . Says she was told 40+ years ago that she had mitral valve prolapse. Echo was done with recent admission. Hypertension [723853] - She was admitted to [facility] in Feb 2024 for TIA and hypertension. Hyperlipidemia [182] Shortness of Breath [691062] - C/o MORENO. Palpitations [512473] - She wore 7 day Holter after hospital admission. She is currently wearing a 30 day [address] monitor. Normal [facility] XR SHOULDER LT 2V or >on XR [...] LIBIA GIBBS Date: 2022-03-17 13:31 Normal [facility] MG MAMM ABHAY DIAG W CADon MG MAMM ABHAY DIAG W CAD Patient: JOSS WASHINGTON Exam Date: 02/08/2022 : 1950 Gender:F Ordering : DR LAWRENCE RAI . Admission #: [id number] Family : Order #: [id number] CLICK HERE TO VIEW EXAM RADIOLOGY REPORT [...] brain cancer at age 69. LOCATION: [facility] BREAST COMPOSITION: Scattered areas [...] M.D. on 02/08/2022 at 08:46 Normal [facility] T4, T3U, FTI LABCORPon 12-01 Free Thyroxine Index 1.7 Normal 1.2-4.9 [facility] Comment on above: Performed By: #### T HYLC #### [facility] [address] [place] [address] Dr. Sheldon Cordero T3 Uptake 27 % Normal 24-39 [facility] Comment on above: Performed By: #### T HYLC #### [facility] [address] [place] [address] Dr. Sheldon Cordero T4 [Mass/Vol] 6.4 ug/dL Normal 4.5-12.0 [facility] Comment on above: Performed By: #### T HYLC #### [facility] [address] [place] [address] Dr. Sheldon Cordero CBC AUTO DIFFon 11-30-2021 BASO # 0.1 103/ul Normal 0.0-0.1 [facility] Comment on above: Performed By: #### C BC #### [facility] [address] [place] [address] Dr. Sheldon Cordero Basophils/100 WBC (Bld) 0.8 % Normal 0.2-2.0 [facility] Comment on above: Performed By: #### C BC #### [facility] [address] [place] [address] Dr. Sheldon Cordero EO # 0.3 103/ul Normal 0.0-0.7 [facility] Comment on above: Performed By: #### C BC #### [facility] [address] [place] [address] Dr. Sheldon Cordero Eosinophils/100 WBC (Bld) 3.8 % Normal 0.9-7.0 [facility] Comment on above: Performed By: #### C BC #### [facility] [address] [place] [address] Dr. Shelodn Cordero Erythrocyte distribution width (RBC) [Ratio] 14.6 % Normal 11.0-15.0 [facility] Comment on above: Performed By: #### C BC #### [facility] [address] [place] [address] Dr. Sheldon Cordero Hematocrit (Bld) [Volume fraction] 39.3 % Normal 36.0-48.0 [facility] Comment on above: Performed By: #### C BC #### [facility] [address] [place] [address] Dr. Sheldon Cordero Hemoglobin (Bld) [Mass/Vol] 12.4 g/dL Normal 12.0-16.0 [facility] Comment on above: Performed By: #### C BC #### [facility] [address] [place] [address] Dr. Sheldon Cordero IG # 0.08 10e3/ul Critically high 0.00-0.03 [facility] Comment on above: Performed By: #### C BC #### [facility] [address] [place] [address] Dr. Sheldon Cordero IG % 1.1 % Critically high 0.0-0.5 [facility] Comment on above: Performed By: #### C BC #### [facility] [address] [place] [address] Dr. Sheldon Cordero LYMPH # 1.8 103/ul Normal 1.2-3.8 [facility] Comment on above: Performed By: #### C BC #### [facility] [address] [place] [address] Dr. Sheldon Cordero Lymphocytes/100 WBC (Bld) 25.1 % Normal 20.5-60.0 [facility] Comment on above: Performed By: #### C BC #### [facility] [address] [place] [address] Dr. Sheldon Cordero MANUAL DIFF REQ NO Normal [facility] Comment on above: Performed By: #### C BC #### [facility] [address] [address] [address] Sheldon Cordero MCH (RBC) [Entitic mass] 29.6 pg Normal 26.7-34.0 [facility] Comment on above: Performed By: #### C BC #### [facility] [address] [place] [address] Dr. Sheldon Cordero MCHC (RBC) [Mass/Vol] 31.6 g/dL Normal 29.9-35.2 [facility] Comment on above: Performed By: #### C BC #### [facility] [address] [place] [address] Dr. Sheldon Cordero MCV (RBC) [Entitic vol] 93.8 fL Normal 81.0-99.0 [facility] Comment on above: Performed By: #### C BC #### [facility] [address] [place] [address] Dr. Sheldon Cordero MONO # 0.4 103/ul Normal 0.3-0.8 [facility] Comment on above: Performed By: #### C BC #### [facility] [address] [place] [address] Dr. Sheldon Cordero Monocytes/100 WBC (Bld) 5.8 % Normal 1.7-12.0 [facility] Comment on above: Performed By: #### C BC #### [facility] [address] [place] [address] Dr. Sheldon Cordero NEUT # 4.6 103/ul Normal 1.4-6.5 [facility] Comment on above: Performed By: #### C BC #### [facility] [address] [place] [address] Dr. Sheldon Cordero Neutrophils/100 WBC (Bld) 63.4 % Normal 43.0-75.0 [facility] Comment on above: Performed By: #### C BC #### [facility] [address] [place] [address] Dr. Sheldon Cordero Platelet mean volume (Bld) [Entitic vol] 8.9 fL Critically low 9.5-13.5 [facility] Comment on above: Performed By: #### C BC #### [facility] [address] [address] [address] Sheldon Cordero PLT 277 103/ul Normal 150-450 [facility] Comment on above: Performed By: #### C BC #### [facility] [address] [address] [address] Sheldon Cordero RBC 4.19 106/ul Critically low 4.20-5.40 [facility] Comment on above: Performed By: #### C BC #### [facility] [address] [address] [address] Sheldon Cordero WBC 7.2 103/ul Normal 4.0-11.0 [facility] Comment on above: Performed By: #### C BC #### [facility] [address] [place] [address] Dr. Sheldon Cordero GLYCOHEMOGLOBIN A1Con 2021 ADA RECOMMENDATION SEE BELOW Normal [facility] Comment on above: Result Comment: ADA RECOMMENDED LIMIT 4.0 - 6.0 ADA THERAPEUTIC TARGET < 7.0 ACTION SUGGESTED > 7.0 Performed By: #### A 1C #### [facility] [address] [place] [address] Dr. Sheldon Cordero Glucose [Mass/Vol] 128 mg/dL Normal [facility] Comment on above: Performed By: #### A 1C #### [facility] [address] [place] [address] Dr. Sheldon Cordero HbA1c (Bld) [Mass fraction] 6.1 % Normal 4.5-6.2 [facility] Comment on above: Performed By: #### A 1C #### [facility] [address] [place] [address] Dr. Sheldon Cordero IRONon 11-30-2021 Iron [Mass/Vol] 58.0 ug/dL Normal 50.0-170.0 [facility] Comment on above: Performed By: #### I GERMAN #### [facility] [address] [place] [address] Dr. Sheldon Cordero LIPID PROFILEon 11-30-2021 CHOL-HDL RATIO NORM SEE BELOW Normal [facility] Comment on above: Result Comment: 3.3 - 4.4 LOW RISK 4.4 - 7.1 AVERAGE RISK 7.1 - 11.0 MODERATE RISK >11.0 HIGH RISK Performed By: #### L IPID, TSH, CMP #### [facility] [address] [address] [address] Sheldon Cordero Cholesterol [Mass/Vol] 251 mg/dL Critically high <=200 [facility] Comment on above: Performed By: #### L IPID, TSH, CMP #### [facility] [address] [address] [address] Sheldon Cordero Cholesterol in HDL [Mass/Vol] 70 mg/dL Critically high 40-60 [facility] Comment on above: Performed By: #### L IPID, TSH, CMP #### [facility] [address] [place] [address] Dr. Sheldon Cordero Cholesterol in LDL [Mass/Vol] 161.4 mg/dL Normal [facility] Comment on above: Performed By: #### L IPID, TSH, CMP #### [facility] [address] [place] [address] Dr. Sheldon Cordero Cholesterol.total/Ch olesterol in HDL [Mass ratio] 3.6 {ratio} Normal [facility] Comment on above: Performed By: #### L IPID, TSH, CMP #### [facility] [address] [place] [address] Dr. Sheldon Cordero HDL NORMAL > or = 60 mg/dl - LO W CARDIOVASCULAR RISK <40 mg/dl - HIGH CARDIOVASCULAR RISK Normal [facility] Comment on above: Performed By: #### L IPID, TSH, CMP #### [facility] [address] [place] [address] Dr. Sheldon Cordero LDL CALC NORMAL SEE BELOW Normal [facility] Comment on above: Result Comment: <100 mg/dl OPTIMAL 100 - 129 mg/dl NEAR OR ABOVE OPTIMAL 130 - 159 mg/dl BORDERLINE HIGH 160 - 189 mg/dl HIGH >190 mg/dl VERY HIGH Performed By: #### L IPID, TSH, CMP #### [facility] [address] [place] [address] Dr. Sheldon Cordero Triglyceride [Mass/Vol] 98 mg/dL Normal <=150 [facility] Comment on above: Performed By: #### L IPID, TSH, CMP #### [facility] [address] [address] [address] Sheldon Cordero VLDL CALC 19.6 mg/dL Normal [facility] Comment on above: Performed By: #### L IPID, TSH, CMP #### [facility] [address] [address] [address] Sheldon Cordero PROF 14(COMP METB)on 022 Albumin [Mass/Vol] 3.4 g/dL Normal 3.4-5.0 [facility] Comment on above: Performed By: #### L IPID, TSH, CMP #### [facility] [address] [place] [address] Dr. Sheldon Cordero Albumin/Globulin [Mass ratio] 0.9 {ratio} Normal [facility] Comment on above: Performed By: #### L IPID, TSH, CMP #### [facility] [address] [place] [address] Dr. hSeldon Cordero ALP [Catalytic activity/Vol] 107 U/L Normal 46-116 [facility] Comment on above: Performed By: #### L IPID, TSH, CMP #### [facility] [address] [address] [address] Sheldon Cordero ALT [Catalytic activity/Vol] 17 U/L Normal 14-59 [facility] Comment on above: Performed By: #### L IPID, TSH, CMP #### [facility] [address] [address] [address] Sheldon Cordero Anion gap [Moles/Vol] 10.9 mmol/L Normal [facility] Comment on above: Performed By: #### L IPID, TSH, CMP #### [facility] [address] [place] [address] Dr. Sheldon Cordero AST [Catalytic activity/Vol] 11 U/L Critically low 15-37 [facility] Comment on above: Performed By: #### L IPID, TSH, CMP #### [facility] [address] [address] [address] Sheldon Cordero Bilirubin [Mass/Vol] 0.3 mg/dL Normal 0.2-1.0 [facility] Comment on above: Performed By: #### L IPID, TSH, CMP #### [facility] [address] [address] [address] Sheldon Cordero Calcium [Mass/Vol] 9.1 mg/dL Normal 8.5-10.1 [facility] Comment on above: Performed By: #### L IPID, TSH, CMP #### [facility] [address] [place] [address] Dr. Sheldon Cordero Chloride [Moles/Vol] 106 mmol/L Normal 98-107 [facility] Comment on above: Performed By: #### L IPID, TSH, CMP #### [facility] [address] [place] [address] Dr. Sheldon Cordero CO2 [Moles/Vol] 30.6 mmol/L Normal 21.0-32.0 [facility] Comment on above: Performed By: #### L IPID, TSH, CMP #### [facility] [address] [place] [address] Dr. Sheldon Cordero Creatinine [Mass/Vol] 0.93 mg/dL Normal 0.55-1.02 [facility] Comment on above: Performed By: #### L IPID, TSH, CMP #### [facility] [address] [place] [address] Dr. Sheldon Cordero EGFR-AF [place]IZ[place] >60 Normal >=60 [facility] Comment on above: Performed By: #### L IPID, TSH, CMP #### [facility] [address] [place] [address] Dr. Sheldon Cordero EGFR-NON AF [place]IZ[place] =60 Normal >=60 [facility] Comment on above: Performed By: #### L IPID, TSH, CMP #### [facility] [address] [place] [address] Dr. Sheldon Cordero Globulin (S) [Mass/Vol] 4.0 g/dL Normal [facility] Comment on above: Performed By: #### L IPID, TSH, CMP #### [facility] [address] [place] [address] Dr. Sheldon Cordero Glucose [Mass/Vol] 101 mg/dL Normal 74-106 [facility] Comment on above: Performed By: #### L IPID, TSH, CMP #### [facility] [address] [place] [address] Dr. Sheldon Cordero Potassium [Moles/Vol] 4.5 mmol/L Normal 3.5-5.1 [facility] Comment on above: Performed By: #### L IPID, TSH, CMP #### [facility] [address] [place] [address] Dr. Sheldon Cordero Protein [Mass/Vol] 7.4 g/dL Normal 6.4-8.2 [facility] Comment on above: Performed By: #### L IPID, TSH, CMP #### [facility] [address] [place] [address] Dr. Sheldon Cordero Sodium [Moles/Vol] 143 mmol/L Normal 136-145 [facility] Comment on above: Performed By: #### L IPID, TSH, CMP #### [facility] [address] [place] [address] Dr. Sheldon Cordero Urea nitrogen [Mass/Vol] 18.0 mg/dL Normal 7.0-18.0 [facility] Comment on above: Performed By: #### L IPID, TSH, CMP #### [facility] [address] [place] [address] Dr. Sheldon Cordero Urea nitrogen/Creatinine [Mass ratio] 19.4 mg/mg Normal [facility] Comment on above: Performed By: #### L IPID, TSH, CMP #### [facility] [address] [place] [address] Dr. Sheldon Cordero TSHon 11-30-2021 TSH 2.774 uIU/mL Normal 0.358-3.740 [facility] Comment on above: Performed By: #### L IPID, TSH, CMP #### [facility] [address] [place] [address] Dr. Sheldon Cordero Lactic Acidon 11-02-2018 Lactate [Mass/Vol] 7.5 mg/dL Normal 4.5-19.8 [facility] Comment on above: Performed By: #### 2 [id number] #### [facility] [address] [place] [address] CNOVon 06-11-2018 CNOV Office Visit (RADTSA ) JOSS WASHINGTON ([id number]) 1950 F Date Time Provider Department 06/11/18 [...] pathologic stage 0 (Tis Nx ?M0), [place]-positive, [place]-positive, s/p partial mastectomy ? ? INTERVAL HISTORY: [...] M.D., KAY ? cc: Lawrence Rai MD [address] [place] [id number] ? Katherine Downs MD [facility] [place] [address] ? Dr. Berman ? This note was dictated with Jazmin Naturally Speaking and may contain some grammatical errors due to limitations of the software. Dexter De León RN, was present in the examination room throughout the encounter. Referring Provider: LAWRENCE RAI [[id number]] Allergies As of Date: 06/11/2018 (No Known Allergies) Date Reviewed: 06/11/2018 Reviewed by: Dexter (Rn) CLARA De León - Fully Assessed Reason for Visit: Breast Cancer [519] Primary Visit Diagnosis:Ductal carcinoma in situ (DCIS) of right breast [D05.11] Order(s):[facility] [0982311] Order #: [id number] FUTURE Prescriptions as of 06/11/2018 Sig: VENTOLIN [...] by FARHEEN CRONIN MD on 06/11/18 Normal [facility] PROGRESSon 06-11-2018 Protein mass conc HNO ID: [id number] Author: Farheen Cronin Service: ? Author Type: Physician Type: Progress Notes Filed: 06/11/2018 2:48 PM Note Text: Radiation Oncology - Follow Up Note PATIENT NAME: Joss Washington PATIENT DIAGNOSIS: ?DCIS of the Right breast, UIQ, pathologic stage 0 (Tis Nx ?M0), ER-positive, [place]-positive, s/p partial mastectomy ? ? INTERVAL HISTORY: [...] M.D., KAY ? cc: Lawrence Rai MD [address] [place] [id number] ? Katherine Downs MD [facility] [address] [place] [address] ? Dr. Berman ? This note was dictated with Dragon Naturally Speaking and may contain some grammatical errors due to limitations of the software. Dexter De León RN, was present in the examination room throughout the encounter. Normal [facility] CNOVon 02-12-2018 CNOV Office Visit (RADTSA ) JOSS WASHINGTON ([id number]) 1950 F Date Time Provider Department 02/12/18 [...] pathologic stage 0 (Tis Nx ?M0), ER-positive, [place]-positive, s/p partial mastectomy ? ? INTERVAL HISTORY: [...] HEALTH FACILITY ? cc: Lawrence Rai MD [address] [place] [phone] ? Katherine Downs MD [facility] [address] [place] [address] ? Dr. Berman ? This note was dictated with Jazmin Naturally Speaking and may contain some grammatical errors due to limitations of the software. Dexter De León RN, was present in the examination room throughout the encounter. Referring Provider: LAWRENCE RAI [[id number]] Allergies As of Date: 02/12/2018 (No Known [...] by FARHEEN CRONIN MD on 02/12/18 Normal [facility] PROGRESSon 02-12-2018 Protein mass conc HNO ID: [id number] Author: Farheen Cronin Service: (none) Author Type: Physician Type: Progress Notes Filed: 02/12/2018 10:40 AM Note Text: Radiation Oncology - Follow Up Note PATIENT NAME: Joss Washington PATIENT DIAGNOSIS: ?DCIS of the Right breast, UIQ, pathologic stage 0 (Tis Nx ?M0), ER-positive, [place]-positive, s/p partial mastectomy ? ? INTERVAL HISTORY: [...] M.D., FACRO ? cc: Lawrence Rai MD [address] [place] [id number] ? Katherine Downs MD [facility] [address] [place] [address] ? Dr. Berman ? This note was dictated with Radhaon Naturally Speaking and may contain some grammatical errors due to limitations of the software. Dexter De León RN, was present in the examination room throughout the encounter. Normal [facility] PROGRESSon 12-10-2017 Protein mass conc HNO ID: [id number] Author: Lisa Willams Service: (none) Author Type: [...] Dr. Downs at this time. Lisa Willams APRN.DICTATING MACHINE TRANSCRIBER Normal [facility] CNOVon 12-04-2017 CNOV Office Visit (RADTSA ) JOSS WASHINGTON ([id number]) 1950 F Date Time Provider Department 12/04/17 [...] pathologic stage 0 (Tis Nx ?M0), [place]-positive, [place]-positive, s/p partial mastectomy ? ? INTERVAL HISTORY: [...] M.D., FACRO ? cc: Lawrence Rai MD [address] [place] [id number] ? Katherine Downs MD [facility] [address] [place] [address] ? Dr. Berman ? This note was dictated with Jazmin Naturally Speaking and may contain some grammatical errors due to limitations of the software. Anatoliy Ha MA was present in the examination room throughout the encounter. Referring Provider: FARHEEN CRONIN [[id number]] Allergies As of Date: 12/04/2017 (No Known [...] Status:Closed by FARHEEN CRONIN MD on 12/04/17 [facility] CNOVSPon 12-04-2017 CNOVSP Visit (SP) Office (HEMASA) JOSS WASHINGTON ([id number]) 1950 F Date Time Provider Department 12/04/17 11:00 AM LISA WILLAMS) CHRISS During your visit today, we recorded the following information about you: Temperature Pulse Respiration Blood pressure 98.3 degrees 72/minute 16/minute 141/73 Weight 132 kg Lisa Willams APRN.CNP 12/10/2017 1:24 PM Signed HPI oJss Corea Felix is a 67 year old [...] Dr. Downs at this time. Lisa Willams APRN.DICTATING MACHINE TRANSCRIBER Referring Provider: FARHEEN CRONIN [[id number]] Allergies As of Date: 12/04/2017 (No Known [...] Status:Closed by LISA WILLAMS CNP on 12/10/17 [facility] PROGRESSon 12-04-2017 Protein mass conc HNO ID: [id number] Author: Farheen Cronin Service: (none) Author Type: Physician Type: Progress Notes Filed: 12/04/2017 1:55 PM Note Text: Radiation Oncology - Follow Up Note PATIENT NAME: Joss Washington PATIENT DIAGNOSIS: DCIS of the Right breast, UIQ, pathologic stage 0 (Tis Nx ?M0), ER-positive, [place]-positive, s/p partial mastectomy ? ? INTERVAL HISTORY: [...] M.D., FACRO ? cc: Lawrence Rai MD [facility] [place] [address] ? Katherine Downs MD [facility] [address] [place] [address] ? Dr. Berman ? This note was dictated with Jazmin Naturally Speaking and may contain some grammatical errors due to limitations of the software. Anatoliy Ha MA was present in the examination room throughout the encounter. Normal [facility] CNOVon 10-30-2017 CNOV Office Visit (RADTSA ) JOSS WASHINGTON ([id number]) 1950 F Date Time Provider Department 10/30/17 [...] pathologic stage 0 (Tis Nx M0), ER-positive, [place]-positive, s/p partial mastectomy ? INTERVAL HISTORY: Mrs. [...] Cronin M.D., FACRO cc: Lawrence Rai MD [address] [place] [phone] ? Katherine Downs MD [facility] [address] [place] [address] ? Dr. Berman ? This note was dictated with Jazmin Naturally Speaking and may contain some grammatical errors due to limitations of the software. Dexter De León RN was present in the examination room throughout the encounter. Referring Provider: FARHEEN CRONIN [[id number]] Allergies As of Date: 10/30/2017 (No Known [...] by FARHEEN CRONIN MD on 10/30/17 [facility] PROGRESSon 10-30-2017 Protein mass conc HNO ID: [id number] Author: Farheen Cronin Service: (none) Author Type: Physician Type: Progress Notes Filed: 10/30/2017 3:16 PM Note Text: Radiation Oncology - Follow Up Note PATIENT NAME: Joss Washington PATIENT DIAGNOSIS: DCIS of the Right breast, UIQ, pathologic stage 0 (Tis Nx M0), ER-positive, [place]-positive, s/p partial mastectomy ? INTERVAL HISTORY: Mrs. [...] Cronin M.D., FACRO cc: Lawrence Rai MD [address] [place] [phone] ? Katherine Downs MD [facility] [address] [place] [address] ? Dr. Berman ? This note was dictated with Radhaon Naturally Speaking and may contain some grammatical errors due to limitations of the software. Dexter De León RN was present in the examination room throughout the encounter. Normal [facility] PROGRESSon 10-16-2017 Protein mass conc HNO ID: [id number] Author: Farheen Cronin Service: (none) Author Type: Physician Type: Progress Notes Filed: 10/17/2017 12:34 AM Note Text: [facility] Radiation Oncology Department RADIATION ONCOLOGY - COMPLETION NOTE PATIENT: JOSS WASHNIGTON : 1950 DATES OF TREATMENT: 08/27/2017 to 10/15/2017 DIAGNOSIS: DCIS of the Right breast, UIQ, pathologic stage 0 (Tis Nx M0), ER-positive, [place]-positive, s/p partial mastectomy AREA TREATED: Right Breast [...] JULIETTE 10/16/20179:57 AM cc: Dr. Lawrence Downs [facility] CNOVon 10-14-2017 CNOV Office Visit (RADTSA ) FELIXJOSS ([id number]) 1950 F Date Time Provider Department 10/14/17 [...] the Right?breast, UIQ,?pathologic?stage 0 (Tis Nx M0),?ER-positive, [place]-positive, s/p?partial mastectomy ? COURSE: definitive AREA TREATED: [...] Notes: >> Dexter Sykes) CLARA De León Tue Oct 14, 2017 10:15 AM Status: Signed Status: Post-menopausal. Dexter De León RN Encounter Status:Closed by FARHEEN CRONIN MD on 10/14/17 [facility] PROGRESSon 10-14-2017 Protein mass conc HNO ID: [id number] Author: Farheen Cronin Service: (none) Author Type: Physician Type: Progress Notes Filed: 10/14/2017 2:16 PM Note Text: Radiation Oncology - On Treatment Review (OTR) Note PATIENT NAME: Joss Washington PATIENT DIAGNOSIS: DCIS?of the Right?breast, UIQ,?pathologic?stage 0 (Tis Nx M0),?ER-positive, [place]-positive, s/p?partial mastectomy ? COURSE: definitive AREA TREATED: [...] as planned. ? Farheen Cronin MD? Normal [facility] CNOVon 10-07-2017 CNOV Office Visit (RADTSA ) JOSS WASHINGTON ([id number]) 1950 F Date Time Provider Department 10/07/17 [...] the Right?breast, UIQ,?pathologic?stage 0 (Tis Nx M0),?ER-positive, [place]-positive, s/p?partial mastectomy ? COURSE: definitive AREA TREATED: [...] by FARHEEN CRONIN MD on 10/07/17 [facility] PROGRESSon 10-07-2017 Protein mass conc HNO ID: [id number] Author: Farheen Cronin Service: (none) Author Type: Physician Type: Progress Notes Filed: 10/07/2017 11:21 AM Note Text: Radiation Oncology - On Treatment Review (OTR) Note PATIENT NAME: Joss Washington PATIENT DIAGNOSIS: DCIS?of the Right?breast, UIQ,?pathologic?stage 0 (Tis Nx M0),?ER-positive, [place]-positive, s/p?partial mastectomy ? COURSE: definitive AREA TREATED: [...] as planned. ? Farheen Cronin MD? Normal [facility] CNOVon 09-30-2017 CNOV Office Visit (RADTSA ) JOSS WASHINGTON ([id number]) 1950 F Date Time Provider Department 09/30/17 [...] the Right?breast, UIQ,?pathologic?stage 0 (Tis Nx M0),?[place]-positive, [place]-positive, s/p?partial mastectomy ? COURSE: definitive AREA TREATED: [...] FOR* Visit Notes: >> Anatoliy Ha RN e Sep 30, 2017 10:21 AM Status: Signed Status: Post-menopausal. 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 COURSE: definitive AREA TREATED: [...] as planned. ? Farheen Cronin MD? Normal [facility] CNOVon 09-22-2017 CNOV Office Visit (RADTSA ) JOSS WASHINGTON ([id number]) 1950 F Date Time Provider Department 09/22/17 [...] the Right?breast, UIQ,?pathologic?stage 0 (Tis Nx M0),?ER-positive, [place]-positive, s/p?partial mastectomy ? COURSE: definitive AREA TREATED: [...] Assessed Reason for Visit: Radiotherapy On-treatment Visit [172] Primary Visit Diagnosis:Ductal carcinoma in situ (DCIS) [...] right breast*INVALID FOR* Visit Notes: >> Anatoliy (Morgue Librarian) CLARA Ha FriSep 22, 2017 10:22 AM Status: Signed Status: Post-menopausal. 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 COURSE: definitive AREA TREATED: [...] as planned. ? Farheen Cronin MD [facility] CBC and Differentialon 09-18 Abs Baso 0.03 k/uL Normal 0.00-0.10 [facility] Abs [place] 0.45 k/uL Normal 0.00-0.86 [facility] Abs Neut 5.16 k/uL Normal 1.45-7.50 [facility] Basophils/100 WBC (Bld) 0.4 % Normal [facility] Eosinophils #/vol (Bld) 0.23 10*3/uL Normal 0.00-0.45 [facility] Eosinophils/100 WBC (Bld) 3.2 % Normal [facility] Erythrocyte distribution width Ratio (RBC) 15.0 % Normal 11.5-15.0 [facility] Hematocrit Volume Fraction (Bld) 39.1 % Normal 36.0-46.0 [facility] Hemoglobin mass conc (Bld) 13.0 g/dL Normal 11.5-15.5 [facility] Lymphocytes #/vol (Bld) 1.40 10*3/uL Normal 1.00-4.00 [facility] Lymphocytes/100 WBC (Bld) 19.3 % Normal [facility] MCH Entitic mass (RBC) 30.6 pG Normal 26.0-34.0 [facility] MCHC mass conc (RBC) 33.2 g/dL Normal 30.5-36.0 [facility] MCV Entitic volume (RBC) 92.0 fL Normal 80.0-100.0 [facility] Monocytes/100 WBC (Bld) 6.2 % Normal [facility] Neutrophils/100 WBC (Bld) 70.9 % Normal [facility] Platelet mean volume Entitic volume (Bld) 9.5 fL Normal 9.0-12.7 [facility] Platelets #/vol (Bld) 272 10*3/uL Normal 150-400 [facility] RBC #/vol (Bld) 4.25 10*6/uL Normal 3.90-5.20 [facility] WBC #/vol (Bld) 7.27 10*3/uL Normal 3.70-11.00 [facility] CNOVon 09-18-2017 CNOV Office Visit (RADTSA ) FELIXJOSS ([id number]) 1950 F Date Time Provider Department 09/18/17 10:10 AM LAB/PORT CARLOST ARIEL RADTSA During your visit today, we recorded the [...] De León RN Referring Provider: FARHEEN CRONIN [[id number]] Allergies As of Date: 09/18/2017 (No Known [...] Visit Notes: >> Dexter De León RN [facility] Sep 18, 2017 10:01 AM Status: [...] by DEXTER DE LEÓN on 09/18/17 Normal [facility] CNOVon 09-16-2017 CNOV Office Visit (RADTSA ) JOSS WASHINGTON ([id number]) 1950 F Date Time Provider Department 09/16/17 [...] the Right?breast, UIQ,?pathologic?stage 0 (Tis Nx M0),?[place]-positive, [place]-positive, s/p?partial mastectomy ? COURSE: definitive AREA TREATED: [...] >> Dexter Sykes) CLARA De León e Sep 16, 2017 10:51 AM Status: Signed Status: Post-menopausal. Dexter De León RN Encounter Status:Closed by FARHEEN CRONIN MD on 09/16/17 [facility] PROGRESSon 09-16-2017 Protein mass conc HNO ID: [id number] Author: Farheen Cronin Service: (none) Author Type: Physician Type: Progress Notes Filed: 09/16/2017 11:06 AM Note Text: Radiation Oncology - On Treatment Review (OTR) Note PATIENT NAME: Joss Washington PATIENT DIAGNOSIS: DCIS?of the Right?breast, UIQ,?pathologic?stage 0 (Tis Nx M0),?[place]-positive, [place]-positive, s/p?partial mastectomy ? COURSE: definitive AREA TREATED: [...] treatment as planned. ? 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 COURSE: definitive AREA TREATED: [...] requiring intervention. Signed by: Jem Santana MD [facility] CNOVon 09-08-2017 CNOV Office Visit (RADTSA ) JOSS WASHINGTON ([id number]) 1950 F Date Time Provider Department 6/11/18 10:15 AM JEM SANTANA During your visit today, we recorded the following information about you: Blood pressure Weight 130/82 130.6 kg Anatoliy Ha LPN, RN 09/08/2017 12:04 PM Signed Status: Post-menopausal. 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 COURSE: definitive AREA TREATED: [...] Notes: >> Anatoliy (Flo) CLARA Ha FriSep 08, 2017 10:10 AM Status: Signed Status: Post-menopausal. Encounter Status:Closed by JEM SANTANA MD on 09/18/17 Normal [facility] CBC and Differentialon 09-04 Abs Baso 0.03 k/uL Normal <0.11 [facility] Comment on above: Performed By: #### C BCDIF ####[place] [address] [place], [place] [phone] Abs [place] 0.45 k/uL Normal <0.87 [facility] Comment on above: Performed By: #### C BCDIF ####[facility], [place] [phone] Abs Neut 3.74 k/uL Normal 1.45-7.50 [facility] Comment on above: Performed By: #### C BCDIF ####[facility], [place] [phone] Basophils/100 WBC (Bld) 0.5 % Normal [facility] Comment on above: Performed By: #### C BCDIF ####[facility] [place] [address] [phone] Comment AGC=3.68 Normal [facility] Comment on above: Result Comment: Prel iminary result. Interpret with caution. Final results may vary. Results requested and read back by: /09/04/1710/15/1026/OSITO CASTELLON Performed By: #### C BCDIF ####[place] [address] [place], [place] [phone] Eosinophils #/vol (Bld) 0.23 10*3/uL Normal <0.46 [facility] Comment on above: Performed By: #### C BCDIF ####[place] [address] [address] [phone] Eosinophils/100 WBC (Bld) 3.7 % Normal [facility] Comment on above: Performed By: #### C BCDIF ####[place] [address] [address] [phone] Erythrocyte distribution width Ratio (RBC) 15.5 % High 11.5-15.0 [facility] Comment on above: Performed By: #### C BCDIF ####[place] [address] [phone] Hematocrit Volume Fraction (Bld) 37.1 % Normal 36.0-46.0 [facility] Comment on above: Performed By: #### C BCDIF ####[place] [address] [phone] Hemoglobin mass conc (Bld) 12.2 g/dL Normal 11.5-15.5 [facility] Comment on above: Performed By: #### C BCDIF ####[place] [address] [address] [place] [phone] Lymphocytes #/vol (Bld) 1.78 10*3/uL Normal 1.00-4.00 [facility] Comment on above: Performed By: #### C BCDIF ####[place] [address] [address] [phone] Lymphocytes/100 WBC (Bld) 28.6 % Normal [facility] Comment on above: Performed By: #### C BCDIF ####[place] [address] [phone] MCH Entitic mass (RBC) 30.3 pG Normal 26.0-34.0 [facility] Comment on above: Performed By: #### C BCDIF ####[place] [address], [place] [phone] MCHC mass conc (RBC) 32.9 g/dL Normal 30.5-36.0 [facility] Comment on above: Performed By: #### C BCDIF ####[place] [address], [place] [phone] MCV Entitic volume (RBC) 92.1 fL Normal 80.0-100.0 [facility] Comment on above: Performed By: #### C BCDIF ####[place] [address] [phone] Monocytes/100 WBC (Bld) 7.2 % Normal [facility] Comment on above: Performed By: #### C BCDIF ####[place] [address] [phone] Neutrophils/100 WBC (Bld) 60.0 % Normal [facility] Comment on above: Performed By: #### C BCDIF ####[place] [address], [place] [phone] Platelet mean volume Entitic volume (Bld) 9.3 fL Normal 9.0-12.7 [facility] Comment on above: Performed By: #### C BCDIF ####[place] [address], [place] [phone] Platelets #/vol (Bld) 285 10*3/uL Normal 150-400 [facility] Comment on above: Performed By: #### C BCDIF ####[place] [address], [place] [phone] RBC #/vol (Bld) 4.03 10*6/uL Normal 3.90-5.20 [facility] Comment on above: Performed By: #### C BCDIF ####[place] [address] [place], [place] [phone] WBC #/vol (Bld) 6.19 10*3/uL Normal 3.70-11.00 [facility] Comment on above: Performed By: #### C BCDIF ####[facility] [place], [place] [phone] CNOVon 09-04-2017 CNOV Office Visit (RADTSA ) JOSS WASHINGTON ([id number]) 1950 F Date Time Provider Department 09/04/17 10:00 AM LAB/PORT RADT ARIEL RICH During your visit today, we [...] De León RN Referring Provider: FARHEEN CRONIN [[id number]] Allergies As of Date: 09/04/2017 (No Known [...] Notes: >> Dexter (Clara) CLARA De León [facility] Sep 04, 2017 12:44 PM Status: [...] Status:Closed by DEXTER DE LEÓN on 09/04/17 [facility] CNOVon 09-02-2017 CNOV Office Visit (RADTSA ) FELIXJOSS ([id number]) 1950 F Date Time Provider Department 09/02/17 [...] pathologic stage 0 (Tis Nx M0), ER-positive, [place]-positive, s/p partial mastectomy COURSE: definitive AREA TREATED: [...] right breast*INVALID FOR* Visit Notes: >> Anatoliy (Morgue Librarian) CLARA Ha loni Sep 02, 2017 10:09 AM Status: Signed Status: Post-menopausal. Encounter Status:Closed by FARHEEN CRONIN MD on 09/02/17 [facility] PROGRESSon 09-02-2017 Protein mass conc HNO ID: [id number] Author: Farheen Cronin Service: (none) Author Type: Physician Type: Progress Notes Filed: 09/02/2017 1:31 PM Note Text: Radiation Oncology - On Treatment Review (OTR) Note PATIENT NAME: Joss Washington PATIENT DIAGNOSIS: DCIS of the Right breast, UIQ, pathologic stage 0 (Tis Nx M0), ER-positive, [place]-positive, s/p partial mastectomy COURSE: definitive AREA TREATED: [...] radiation treatment as planned. Farheen Cronin MD [facility] CNOVon 08-27-2017 CNOV Office Visit (RADTSA ) JOSS WASHINGTON ([id number]) 1950 F Date Time Provider Department 08/27/17 1:30 PM JEM SANTANA During your visit today, we recorded the following information about you: Dexter De León RN, RN 08/27/2017 2:20 PM Signed Status: Post-menopausal. CLARA Mahmood MD 09/12/2017 12:12 AM Signed RADIATION ONCOLOGY- ON TREATMENT REVIEW (OTR) NOTE PATIENT NAME: Joss Washington PATIENT DIAGNOSIS: DCIS?of the Right?breast, UIQ,?pathologic?stage 0 (Tis Nx M0),?ER-positive, [place]-positive, s/p?partial mastectomy ? Plan and MU calculations [...] Jem Santana MD Referring Provider: JEM SANTANA [[id number]] Allergies As of Date: 08/27/2017 (No Known [...] Status:Closed by JEM SANTANA MD on 09/12/17 [facility] PROGRESSon 08-27-2017 Protein mass conc HNO ID: [id number] Author: Jem Santana Service: (none) Author Type: Physician Type: Progress Notes Filed: 09/12/2017 12:12 AM Note Text: RADIATION ONCOLOGY- ON TREATMENT REVIEW (OTR) NOTE PATIENT NAME: Joss Washington PATIENT DIAGNOSIS: DCIS?of the Right?breast, UIQ,?pathologic?stage 0 (Tis Nx M0),?ER-positive, [place]-positive, s/p?partial mastectomy ? Plan and MU calculations [...] of treatment. Signed by: Jem Santana MD [facility] CT NON-RADIOLOGY -NBNRo n 08-20-[address] [facility] [address] NON-RADIOLOGY -NBNR [facility] - CT Images - Obtained Outside of Imaging [employer] [id number] [facility] CNCNPATEDon 08-20-2017 CNCNPATED Education (RADTSA) JOSS WASHINGTON ([id number]) 1950 F Date Time Provider Department 08/20/17 ANATOLIY HA) RADTSA Reason for Visit: Patient Education [91] Visit Notes: >> Anatoliy Ha RN FriAugust 20, 2017 3:46 PM Status: Signed Radiation Therapy - Patient Education Note PATIENT NAME: Joss Washington PATIENT August 20, 2017 [facility] FACILITY/LOCATION: [facility] READINESS TO LEARN Cognitive Ability: Alert [...] 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 Was approved? No Signed by: Anatoliy Ha [...] Encounter Status:Closed by ANATOLIY HA on 08/20/17 [facility] CNOVon 08-20-2017 CNOV Office Visit (CARLOSTSA ) JOSS WASHINGTON ([id number]) 1950 F Date Time Provider Department 08/20/17 2:00 PM FARHEEN CRONIN During your visit today, we recorded the following information about you: Blood pressure Weight Height 146/86 132.9 kg 1.6 m Farheen Cronin, MD 08/20/2017 3:39 PM Signed Radiation Oncology - New Patient/Consult Note PATIENT NAME: Joss Washington PATIENT REQUESTING PROVIDER: Dr. Katherine Downs DIAGNOSIS: 67 year old female with DCIS of the Right breast, UIQ, pathologic stage 0 (Tis Nx M0), ER-positive, [place]-positive, s/p partial mastectomy. HPI: 67 year old [...] her . 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 COMPLETE REVIEW [...] Farheen Cronin MD cc: [place] [address] [place] [address] Katherine Downs MD [facility] [address] [place] [address] Dr. Berman This note was dictated with Dragon Naturally Speaking and may contain some grammatical errors due to limitations of the software. Referring Provider: KATHERINE DOWNS [[id number]] Allergies As of Date: 08/20/2017 (No Known [...] by FARHEEN CRONIN MD on 08/20/17 [facility] PROGRESSon 08-20-2017 Protein mass conc HNO ID: [id number] Author: Farheen Cronin Service: (none) Author Type: Physician Type: Progress Notes Filed: 08/20/2017 3:39 PM Note Text: Radiation Oncology - New Patient/Consult Note PATIENT NAME: Joss Washington PATIENT REQUESTING PROVIDER: Dr. Katherine Downs DIAGNOSIS: 67 year old female with DCIS of the Right breast, UIQ, pathologic stage 0 (Tis Nx M0), ER-positive, [place]-positive, s/p partial mastectomy. HPI: 67 year old [...] her . 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 COMPLETE REVIEW [...] Farheen Cronin MD cc: Lawrence Rai MD [address] [place] [phone] Katherine Downs MD [facility] [address] [place] [address] Dr. Berman This note was dictated with Dragon Naturally Speaking and may contain some grammatical errors due to limitations of the software. 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 / NRS 08/20/20173:59 PM [facility] Protein mass conc HNO ID: [id number] Author: Farheen Cronin Service: (none) Author Type: Physician Type: Progress Notes Filed: 08/27/2017 12:34 AM Note Text: JOSS WASHINGTON [id number] 08/20/2017 [facility] Department of Radiation Oncology Treatment Planning [...] Electronically Signed Farheen Cronin M.D. 08/26/20171:02 PM [facility] CNOVSPon 08-14-2017 CNOVSP Visit (SP) Office (HEMACL) JOSS WASHINGTON ([id number]) 1950 F Date Time Provider Department 08/14/17 [...] Katherine Downs MD Referring Provider: GEREMIAS BERMAN [[id number]] Allergies As of Date: 08/14/2017 (No Known Allergies) Date Reviewed: 08/14/2017 Reviewed by: Iesha Luis - Fully Assessed Primary Visit Diagnosis:Ductal carcinoma in situ (DCIS) of right breast [D05.11] Order(s):RAD/ONC CONSULT [9037] Order #: [id number]: 1 Prescriptions as of 08/14/2017 Sig: VENTOLIN [...] by KATHERINE DOWNS MD on 08/14/17 Normal [facility] PROGRESSon 08-14-2017 Protein mass conc HNO ID: [id number] Author: Katherine Downs Service: (none) Author Type: Physician Type: Progress Notes Filed: 08/14/2017 2:27 PM Note Text: GEMINI Washington is a 67 year old female [...] - RAD/ONC CONSULT Katherine Downs MD Normal [facility] US-US GUIDE LOCAL BREAST RT IMPORTon 07-04-2017 US-US GUIDE LOCAL BREAST RT IMPORT Images were obtained outside of [facility] [id number] [facility] MAMM OUTSIDE DICOM IMPORT -N BNRon 06-18-2017 MAMM OUTSIDE DICOM IMPORT -NBNR Images were obtained outside of [facility] [id number] Normal [facility] Encounters Encounter Date Encounter Type Care Provider Facility Start: 08-06-2024 End: 08-06-2024 ambulatory [facility] Start: 05-07-2024 End: 05-07-2024 ambulatory [facility] Start: 03-16-2022 End: 03-17-[address] LAWRENCE RAI Facility:[facility] Start: 02-28-[address] [facility] Facility :[facility] Start: 02-08-2022 End: 02-09-[address] [facility] Facility:[facility] Start: 11-30-2021 End: 12-01-[address] [facility] Facility:[facility] Start: 06-11-2018 End: 06-15-2018 Patient encounter procedure FARHEEN CRONIN [facility] Start: 02-12-2018 End: 02-13-2018 Patient encounter procedure FARHEEN CRONIN [facility] Start: 12-04-2017 End: 12-11-2017 Patient encounter procedure LISA WILLAMS [facility] Start: 10-30-2017 End: 10-30-2017 Patient encounter procedure FARHEEN CRONIN [facility] Start: 10-15-2017 End: 10-20-2017 Patient encounter procedure KATHERINE DOWNS [facility] Start: 10-14-2017 End: 10-14-2017 Patient encounter procedure FARHEEN CRONIN [facility] Start: 10-13-2017 End: 10-15-2017 Patient encounter procedure KATHERINE DOWNS [facility] Start: 10-09-2017 End: 10-30-2017 Patient encounter procedure KATHERINE DOWNS [facility] Start: 10-08-2017 End: 10-10-2017 Patient encounter procedure KATHERINE DOWNS [facility] Start: 10-07-2017 End: 10-07-2017 Patient encounter procedure FARHEEN CRONIN [facility] Start: 10-06-2017 End: 10-10-2017 Patient encounter procedure KATHERINE DOWNS [facility] Start: 10-03-2017 End: 10-08-2017 Patient encounter procedure KATHERINE DOWNS [facility] Start: 10-02-2017 End: 10-20-2017 Patient encounter procedure KATHERINE DOWNS [facility] Start: 09-30-2017 End: 09-30-2017 Patient encounter procedure ZULEMAAdrián Celeste CRONIN [facility] Start: 09-29-2017 End: 10-06-2017 Patient encounter procedure KATHERINE DOWNS [facility] Start: 09-26-2017 End: 10-02-2017 Patient encounter procedure KATHERINE DOWNS [facility] Start: 09-25-2017 End: 09-29-2017 Patient encounter procedure KATHERINE DOWNS [facility] Start: 09-24-2017 End: 10-06-2017 Patient encounter procedure KATHERINE DOWNS [facility] Start: 09-23-2017 End: 09-29-2017 Patient encounter procedure KATHERINE DOWNS [facility] Start: 09-22-2017 End: 09-22-2017 Patient encounter procedure FARHEEN CRONIN [facility] Start: 09-19-2017 End: 09-22-2017 Patient encounter procedure KATHERINE DOWNS [facility] Start: 09-18-2017 End: 09-18-2017 Patient encounter procedure FARHEEN CRONIN [facility] Start: 09-17-2017 End: 09-30-2017 Patient encounter procedure KATHERINE DOWNS [facility] Start: 09-16-2017 End: 09-16-2017 Patient encounter procedure FARHEEN CRONIN [facility] Start: 09-15-2017 End: 09-17-2017 Patient encounter procedure KATHERINE DOWNS [facility] Start: 09-12-2017 End: 09-17-2017 Patient encounter procedure KATHERINE DOWNS [facility] Start: 09-11-2017 End: 09-15-2017 Patient encounter procedure KATHERINE DOWNS [facility] Start: 09-10-2017 End: 09-22-2017 Patient encounter procedure KATHERINE DOWNS [facility] Start: 09-09-2017 End: 09-15-2017 Patient encounter procedure KATHERINE DOWNS [facility] Start: 09-08-2017 End: 09-08-2017 Patient encounter procedure JEM SANTANA [facility] Start: 09-05-2017 End: 09-15-2017 Patient encounter procedure KATHERINE DOWNS [facility] Start: 09-04-2017 End: 09-04-2017 Patient encounter procedure FARHEEN CRONIN [facility] Start: 09-03-2017 End: 09-15-2017 Patient encounter procedure KATHERINE DOWNS [facility] Start: 09-02-2017 End: 09-02-2017 Patient encounter procedure FARHEEN CRONIN [facility] Start: 09-01-2017 End: 09-04-2017 Patient encounter procedure KATHERINE ODWNS [facility] Start: 08-29-2017 End: 09-01-2017 Patient encounter procedure KATHERINE DOWNS [facility] Start: 08-28-2017 End: 09-01-2017 Patient encounter procedure KATHERINE DOWNS [facility] Start: 08-27-2017 End: 08-27-2017 Patient encounter procedure JEM SANTANA [facility] Start: 08-20-2017 End: 08-21-2017 Patient encounter procedure FARHEEN Alonso CRON[facility] Start: 08-14-2017 End: 08-15-2017 Patient encounter procedure KATHERINE Oliva JAIMIEROSIE [facility] Payers Date Payer Category Payer Unknown [id number] 1958 Medicare [id number] 1958 Self-pay [id number] 1958 Unknown [id number] 1950 Unknown [id number] [id number] [id number] 1950 Unknown [id number] [id number] [id number] 1950 Unknown [id number] [id number] [id number] 1950 Unknown [id number] [id number] [id number] Progress note 08-06-2024 Note Date & Type Note Facility 08-06-2024 Note [facility] Note Reason for cardiology [...] edema or legs discomfort on exertion. 05/07/2024 Joss Washington is a 74 y.o. female with history of hypertension, hyperlipidemia, recent TIA, and right breast cancer Patient presented to [facility] on 03/18/2024 with vision changes which lasted [...] Head CT 03/18/2024 7-day Holter monitor 03/19/2024 Review (more content not included)... [facility] Progress note 05-07-2024 Note Date & Type Note Facility 05-07-2024 Note [facility] Note Reason for cardiology consult: TIA Chief Complaint: dyspnea on exertion HPI: Joss Washington is a 73 y.o. female with history of hypertension, hyperlipidemia, recent TIA, and right breast cancer Patient presented to [facility] on 03/18/2024 with vision changes which lasted [...] has no past medical history of Stroke ([facility]). Surgical History She has a [...] TIA, no ische (more content not included)... [facility] Summary Purpose Family History No Family History Records FoundNo Family History Records FoundNo Family History Records FoundNo Family History Records Found Advance Directives No Advanced Directives Records FoundNo Advanced Directives Records FoundNo Advanced Directives Records FoundNo Advanced Directives Records Found Additional Source Comments INFORMATION SOURCE (unrecogn ized section and content) DATE CREATED AUTHOR 06/15/2018 [facility] DATE CREATED AUTHOR AUTHOR'S ORGANIZ ATION [facility] DATE CREATED AUTHOR AUTHOR'S ORGANIZ ATION 03/22/2022 Roc Renetta [facility] DATE CREATED AUTHOR AUTHOR'S ORGANIZ ATION 08/08/2024 [facility] FOR RECORDS PERTAINING TO PATIENTS WHO ARE [...] BE BASED ON THE PRIMARY CLINICAL RECORDS. [facility] [employer] [facility]. provides no warranty or guarantee of the accuracy or completeness of information in this document.
== END 2024-08-10 20:53 | disposition home or self-care (01) ==
LOC: SLEEP 20:52
PROVIDERS: PCP Internal Medicine Cardiovascular Disease; Visit Provider Internal Medicine Cardiovascular Disease
DX: G47.33 Obstructive sleep apnea (adult) (pediatric) (principal); G47.31 Primary central sleep apnea
CPT/HCPCS: 95810

== ENCOUNTER 2024-08-19 07:10 | Outpatient (OUT) | payer MEDICARE, OTHER, SELFPAY ==
--- OUTSIDE RECORDS SUMMARY | 2024-08-19 07:14 | XMS_ITS | CCD ---
Author Organization [facility] Care Team Providers Care Cloth Hauler Name Role Phone KATHERINE DOWNS Attending Unavailable [...] KHALID R Referring Unavailable LISA WILLAMS ([facility]) Attending Unavailabl e CRONIN, KHALID R [...] [facility] Facility Office Visiton 08-06-2024 Follow-up visit [id number] FelixJoss 1950 Date Provider Department Center 08/06/2024 JOHN BIGGS Family History Problem Relation Age of Onset Hypertension Mother Stroke Mother Hyperlipidemia Mother Hypertension Father Coronary artery disease Father Hyperlipidemia Father Cancer Father Family Status - Relation Status Age at Mother Father Level of Service:62484 [place] OFFICE/OUTPATIENT ESTABLISHED MOD MDM 30 MIN Reason for Visit and Comments: Hyperlipidemia [182] - Had lipid in May 2024. Hypertension [492969] - She brought BP log with her. Shortness of Breath [145380] - She attributes her MORENO to her weight. Says it's hard for her to walk a lot due to knee pain. Palpitations [809689] - Hasn't had palpitations recently. Transient Ischemic Attack [826942] - Had bubble study in May 2024. She wants to know if she can stop Plavix due to TIA being ruled out. [facility] Office Visiton 05-07-2024 Follow-up visit [id number] Joss Washington 1950 Provider Department Center 05/07/2024 JOHN BIGGS Family History Problem Relation Age of Onset Hypertension Mother Stroke Mother Hyperlipidemia Mother Hypertension Father Coronary artery disease Father Hyperlipidemia Father Cancer Father Family Status - Relation Status Age at Mother Father Level of Service:25373 [place] OFFICE/OUTPATIENT NEW MODERATE MDM 45 MINUTES Reason for Visit and Comments: Chest Pain [996364] - Patient describes it as chest discomfort . Says she was told 40+ years ago that she had mitral valve prolapse. Echo was done with recent admission. Hypertension [257785] - She was admitted to [facility] in Feb 2024 for TIA and hypertension. Hyperlipidemia [182] Shortness of Breath [147827] - C/o MORENO. Palpitations [315027] - She wore 7 day Holter after hospital admission. She is currently wearing a 30 day event monitor. Normal [facility] XR SHOULDER LT 2V or [...] LIBIA GIBBS Date: 2022-03-17 13:31 Normal [facility] MG MAMM ABHAY DIAG W CADon MG MAMM ABHAY DIAG W CAD Patient: JOSS WASHINGTON Exam Date: 02/08/2022 : 1950 Gender:F Ordering : DR LAWRENCE RAI . Admission #: [id number] Family : Order #: [id number] CLICK HERE TO VIEW EXAM RADIOLOGY REPORT [...] brain cancer at age 69. LOCATION: [facility] BREAST COMPOSITION: Scattered areas fibroglandular density. [...] M.D. on 02/08/2022 at 08:46 Normal [facility] T4, T3U, FTI LABCORPon 12-01 Free Thyroxine Index 1.7 Normal 1.2-4.9 [facility] Comment on above: Performed By: #### T HYLC #### [facility] [address] [place] [address] Dr. Sheldon Cordero T3 Uptake 27 % Normal 24-39 [facility] Comment on above: Performed By: #### T HYLC #### [facility] [address] [place] [address] Dr. Sheldon Cordero T4 [Mass/Vol] 6.4 ug/dL Normal 4.5-12.0 [facility] Comment on above: Performed By: #### T HYLC #### [facility] [address] [place] [address] Dr. Sheldon Cordero CBC AUTO DIFFon 11-30-2021 BASO # 0.1 103/ul Normal 0.0-0.1 [facility] Comment on above: Performed By: #### C BC #### [facility] [address] [place] [address] Dr. Sheldon Cordero Basophils/100 WBC (Bld) 0.8 % Normal 0.2-2.0 [facility] Comment on above: Performed By: #### C BC #### [facility] [address] [place] [address] Dr. Sheldon Cordero EO # 0.3 103/ul Normal 0.0-0.7 [facility] Comment on above: Performed By: #### C BC #### [facility] [address] [place] [address] Dr. Sheldon Cordero Eosinophils/100 WBC (Bld) 3.8 % Normal 0.9-7.0 [facility] Comment on above: Performed By: #### C BC #### [facility] [address] [place] [address] Dr. Sheldon Cordero Erythrocyte distribution width (RBC) [Ratio] 14.6 % Normal 11.0-15.0 [facility] Comment on above: Performed By: #### C BC #### [facility] [address] [place] [address] Dr. Sheldon Cordero Hematocrit (Bld) [Volume fraction] 39.3 % Normal 36.0-48.0 [facility] Comment on above: Performed By: #### C BC #### [facility] [address] [place] [address] Dr. Sheldon Cordero Hemoglobin (Bld) [Mass/Vol] 12.4 g/dL Normal 12.0-16.0 [facility] Comment on above: Performed By: #### C BC #### [facility] [address] [place] [address] Dr. Sheldon Cordero IG # 0.08 10e3/ul Critically high 0.00-0.03 [facility] Comment on above: Performed By: #### C BC #### [facility] [address] [place] [address] Dr. Sheldon Cordero IG % 1.1 % Critically high 0.0-0.5 [facility] Comment on above: Performed By: #### C BC #### [facility] [address] [place] [address] Dr. Sheldon Cordero LYMPH # 1.8 103/ul Normal 1.2-3.8 [facility] Comment on above: Performed By: #### C BC #### [facility] [address] [place] [address] Dr. Sheldon Cordero Lymphocytes/100 WBC (Bld) 25.1 % Normal 20.5-60.0 [facility] Comment on above: Performed By: #### C BC #### [facility] [address] [place] [address] Dr. Sheldon Cordero MANUAL DIFF REQ NO Normal [facility] Comment on above: Performed By: #### C BC #### [facility] [address] [address] [address] Sheldon Cordero MCH (RBC) [Entitic mass] 29.6 pg Normal 26.7-34.0 [facility] Comment on above: Performed By: #### C BC #### [facility] [address] [place] [address] Dr. Sheldon Cordero MCHC (RBC) [Mass/Vol] 31.6 g/dL Normal 29.9-35.2 [facility] Comment on above: Performed By: #### C BC #### [facility] [address] [place] [address] Dr. Sheldon Cordero MCV (RBC) [Entitic vol] 93.8 fL Normal 81.0-99.0 [facility] Comment on above: Performed By: #### C BC #### [facility] [address] [place] [address] Dr. Sheldon Cordero MONO # 0.4 103/ul Normal 0.3-0.8 [facility] Comment on above: Performed By: #### C BC #### [facility] [address] [place] [address] Dr. Sheldon Cordero Monocytes/100 WBC (Bld) 5.8 % Normal 1.7-12.0 [facility] Comment on above: Performed By: #### C BC #### [facility] [address] [place] [address] Dr. Sheldon Cordero NEUT # 4.6 103/ul Normal 1.4-6.5 [facility] Comment on above: Performed By: #### C BC #### [facility] [address] [place] [address] Dr. Sheldon Cordero Neutrophils/100 WBC (Bld) 63.4 % Normal 43.0-75.0 [facility] Comment on above: Performed By: #### C BC #### [facility] [address] [place] [address] Dr. Sheldon Cordero Platelet mean volume (Bld) [Entitic vol] 8.9 fL Critically low 9.5-13.5 [facility] Comment on above: Performed By: #### C BC #### [facility] [address] [address] [address] Sheldon Cordero PLT 277 103/ul Normal 150-450 [facility] Comment on above: Performed By: #### C BC #### [facility] [address] [address] [address] Sheldon Cordero RBC 4.19 106/ul Critically low 4.20-5.40 [facility] Comment on above: Performed By: #### C BC #### [facility] [address] [address] [address] Sheldon Cordero WBC 7.2 103/ul Normal 4.0-11.0 [facility] Comment on above: Performed By: #### C BC #### [facility] [address] [place] [address] Dr. Sheldon Cordero GLYCOHEMOGLOBIN A1Con 2021 ADA RECOMMENDATION SEE BELOW Normal [facility] Comment on above: Result Comment: ADA RECOMMENDED LIMIT 4.0 - 6.0 ADA THERAPEUTIC TARGET < 7.0 ACTION SUGGESTED > 7.0 Performed By: #### A 1C #### [facility] [address] [place] [address] Dr. Sheldon Cordero Glucose [Mass/Vol] 128 mg/dL Normal [facility] Comment on above: Performed By: #### A 1C #### [facility] [address] [place] [address] Dr. Sheldon Cordero HbA1c (Bld) [Mass fraction] 6.1 % Normal 4.5-6.2 [facility] Comment on above: Performed By: #### A 1C #### [facility] [address] [place] [address] Dr. Sheldon Cordero IRONon 11-30-2021 Iron [Mass/Vol] 58.0 ug/dL Normal 50.0-170.0 [facility] Comment on above: Performed By: #### I GERMAN #### [facility] [address] [place] [address] Dr. Sheldon Cordero LIPID PROFILEon 11-30-2021 CHOL-HDL RATIO NORM SEE BELOW Normal [facility] Comment on above: Result Comment: 3.3 - 4.4 LOW RISK 4.4 - 7.1 AVERAGE RISK 7.1 - 11.0 MODERATE RISK >11.0 HIGH RISK Performed By: #### L IPID, TSH, CMP #### [facility] [address] [address] [address] Sheldon Cordero Cholesterol [Mass/Vol] 251 mg/dL Critically high <=200 [facility] Comment on above: Performed By: #### L IPID, TSH, CMP #### [facility] [address] [address] [address] Sheldon Cordero Cholesterol in HDL [Mass/Vol] 70 mg/dL Critically high 40-60 [facility] Comment on above: Performed By: #### L IPID, TSH, CMP #### [facility] [address] [place] [address] Dr. Sheldon Cordero Cholesterol in LDL [Mass/Vol] 161.4 mg/dL Normal [facility] Comment on above: Performed By: #### L IPID, TSH, CMP #### [facility] [address] [place] [address] Dr. Sheldon Cordero Cholesterol.total/Ch olesterol in HDL [Mass ratio] 3.6 {ratio} Normal [facility] Comment on above: Performed By: #### L IPID, TSH, CMP #### [facility] [address] [place] [address] Dr. Sheldon Cordero HDL NORMAL > or = 60 mg/dl - LO W CARDIOVASCULAR RISK <40 mg/dl - HIGH CARDIOVASCULAR RISK Normal [facility] Comment on above: Performed By: #### L IPID, TSH, CMP #### [facility] [address] [place] [address] Dr. Sheldon Cordero LDL CALC NORMAL SEE BELOW Normal [facility] Comment on above: Result Comment: <100 mg/dl OPTIMAL 100 - 129 mg/dl NEAR OR ABOVE OPTIMAL 130 - 159 mg/dl BORDERLINE HIGH 160 - 189 mg/dl HIGH >190 mg/dl VERY HIGH Performed By: #### L IPID, TSH, CMP #### [facility] [address] [place] [address] Dr. Sheldon Cordero Triglyceride [Mass/Vol] 98 mg/dL Normal <=150 [facility] Comment on above: Performed By: #### L IPID, TSH, CMP #### [facility] [address] [address] [address] Sheldon Cordero VLDL CALC 19.6 mg/dL Normal [facility] Comment on above: Performed By: #### L IPID, TSH, CMP #### [facility] [address] [address] [address] Sheldon Cordero PROF 14(COMP METB)on 022 Albumin [Mass/Vol] 3.4 g/dL Normal 3.4-5.0 [facility] Comment on above: Performed By: #### L IPID, TSH, CMP #### [facility] [address] [place] [address] Dr. Sheldon Cordero Albumin/Globulin [Mass ratio] 0.9 {ratio} Normal [facility] Comment on above: Performed By: #### L IPID, TSH, CMP #### [facility] [address] [place] [address] Dr. Sheldon Cordero ALP [Catalytic activity/Vol] 107 U/L Normal 46-116 [facility] Comment on above: Performed By: #### L IPID, TSH, CMP #### [facility] [address] [address] [address] Sheldon Cordero ALT [Catalytic activity/Vol] 17 U/L Normal 14-59 [facility] Comment on above: Performed By: #### L IPID, TSH, CMP #### [facility] [address] [address] [address] Sheldon Cordero Anion gap [Moles/Vol] 10.9 mmol/L Normal [facility] Comment on above: Performed By: #### L IPID, TSH, CMP #### [facility] [address] [place] [address] Dr. Sheldon Cordero AST [Catalytic activity/Vol] 11 U/L Critically low 15-37 [facility] Comment on above: Performed By: #### L IPID, TSH, CMP #### [facility] [address] [address] [address] Sheldon Cordero Bilirubin [Mass/Vol] 0.3 mg/dL Normal 0.2-1.0 [facility] Comment on above: Performed By: #### L IPID, TSH, CMP #### [facility] [address] [address] [address] Sheldon Cordero Calcium [Mass/Vol] 9.1 mg/dL Normal 8.5-10.1 [facility] Comment on above: Performed By: #### L IPID, TSH, CMP #### [facility] [address] [place] [address] Dr. Sheldon Cordero Chloride [Moles/Vol] 106 mmol/L Normal 98-107 [facility] Comment on above: Performed By: #### L IPID, TSH, CMP #### [facility] [address] [place] [address] Dr. Sheldon Cordero CO2 [Moles/Vol] 30.6 mmol/L Normal 21.0-32.0 [facility] Comment on above: Performed By: #### L IPID, TSH, CMP #### [facility] [address] [place] [address] Dr. Sheldon Cordero Creatinine [Mass/Vol] 0.93 mg/dL Normal 0.55-1.02 [facility] Comment on above: Performed By: #### L IPID, TSH, CMP #### [facility] [address] [place] [address] Dr. Sheldon Cordero EGFR-AF TUNISIAN >60 Normal >=60 [facility] Comment on above: Performed By: #### L IPID, TSH, CMP #### [facility] [address] [place] [address] Dr. Sheldon Cordero EGFR-NON AF TUNISIAN =60 Normal >=60 [facility] Comment on above: Performed By: #### L IPID, TSH, CMP #### [facility] [address] [place] [address] Dr. Sheldon Cordero Globulin (S) [Mass/Vol] 4.0 g/dL Normal [facility] Comment on above: Performed By: #### L IPID, TSH, CMP #### [facility] [address] [place] [address] Dr. Sheldon Cordero Glucose [Mass/Vol] 101 mg/dL Normal 74-106 [facility] Comment on above: Performed By: #### L IPID, TSH, CMP #### [facility] [address] [place] [address] Dr. Sheldon Cordero Potassium [Moles/Vol] 4.5 mmol/L Normal 3.5-5.1 [facility] Comment on above: Performed By: #### L IPID, TSH, CMP #### [facility] [address] [place] [address] Dr. Shedlon Cordero Protein [Mass/Vol] 7.4 g/dL Normal 6.4-8.2 [facility] Comment on above: Performed By: #### L IPID, TSH, CMP #### [facility] [address] [place] [address] Dr. Sheldon Cordero Sodium [Moles/Vol] 143 mmol/L Normal 136-145 [facility] Comment on above: Performed By: #### L IPID, TSH, CMP #### [facility] [address] [place] [address] Dr. Sheldon Cordero Urea nitrogen [Mass/Vol] 18.0 mg/dL Normal 7.0-18.0 [facility] Comment on above: Performed By: #### L IPID, TSH, CMP #### [facility] [address] [place] [address] Dr. Sheldon Cordero Urea nitrogen/Creatinine [Mass ratio] 19.4 mg/mg Normal [facility] Comment on above: Performed By: #### L IPID, TSH, CMP #### [facility] [address] [place] [address] Dr. Sheldon Cordero TSHon 11-30-2021 TSH 2.774 uIU/mL Normal 0.358-3.740 [facility] Comment on above: Performed By: #### L IPID, TSH, CMP #### [facility] [address] [place] [address] Dr. Sheldon Cordero Lactic Acidon 11-02-2018 Lactate [Mass/Vol] 7.5 mg/dL Normal 4.5-19.8 [facility] Comment on above: Performed By: #### 2 [id number] #### [facility] [address] [place] [address] CNOVon 06-11-2018 CNOV Office Visit (RADTSA ) JOSS WASHINGTON ([id number]) 1950 F Date Time Provider Department 06/11/18 10:30 AM FARHEEN CRONIN During your visit today, we recorded the following information about you: Pulse Respiration Blood pressure Weight 93/minute 22/minute 156/74 132 kg Farheen Croinn MD 06/11/2018 2:48 PM Signed Radiation Oncology - Follow Up Note PATIENT NAME: Joss Washington PATIENT DIAGNOSIS: ?DCIS of the Right breast, UIQ, 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 ? INTERVAL HISTORY: [...] M.D., KAY ? cc: Lawrence Rai MD [address] [place] [id number] ? Katherine Downs MD [facility] [place] [address] ? [address]. Berman ? This note was dictated with Jazmin Naturally Speaking and may contain some grammatical errors due to limitations of the software. Dexter De León RN, was present in the examination room throughout the encounter. Referring Provider: LAWRENCE RAI [[id number]] Allergies As of Date: 06/11/2018 (No Known Allergies) Date Reviewed: 06/11/2018 Reviewed by: Dexter (Rn) CLARA De León - Fully Assessed Reason for Visit: Breast Cancer [519] Primary Visit Diagnosis:Ductal carcinoma in situ (DCIS) of right breast [D05.11] Order(s):[facility] DIAGNOSTIC [facility]ILAT [8848533] Order #: [id number] FUTURE Prescriptions as of 06/11/2018 Sig: VENTOLIN [...] by FARHEEN CRONIN MD on 06/11/18 Normal [facility] PROGRESSon 06-11-2018 Protein mass conc HNO ID: [id number] Author: Farheen Cronin Service: ? 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 ? INTERVAL HISTORY: [...] M.D., KAY ? cc: Lawrence Rai MD [address] [place] [id number] ? Katherine Downs MD [facility] [address] [place] [address] ? Dr. Berman ? This note was dictated with Dragon Naturally Speaking and may contain some grammatical errors due to limitations of the software. Dexter De León RN, was present in the examination room throughout the encounter. Normal [facility] CNOVon 02-12-2018 CNOV Office Visit (RADTSA ) JOSS WASHINGTON ([id number]) 1950 F Date Time Provider Department 02/12/18 [...] 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 ? INTERVAL HISTORY: [...] examination. ? Signed by: Farheen Cronin M.D., [facility] ? cc: Lawrence Rai MD [address] [place] [phone] ? Katherine Downs MD [facility] [address] [place] [address] ? Dr. Berman ? This note was dictated with Jazmin Naturally Speaking and may contain some grammatical errors due to limitations of the software. Dexter De León RN, was present in the examination room throughout the encounter. 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 ? INTERVAL HISTORY: [...] M.D., FACRO ? cc: Lawrence Rai MD [address] [place] [id number] ? Katherine Downs MD [facility] [address] [place] [address] ? Dr. Berman ? This note was dictated with Radhaon Naturally Speaking and may contain some grammatical errors due to limitations of the software. Dexter De León RN, was present in the examination room throughout the encounter. Normal [facility] PROGRESSon 12-10-2017 Protein mass conc HNO ID: [id number] Author: Lisa Willams Service: (none) Author Type: [...] follow with Dr. Downs at this time. Lsia Willams APRN.[employer] Normal [facility] CNOVon 12-04-2017 CNOV Office Visit (RADTSA ) JOSS WASHINGTON ([id number]) 1950 F Date Time Provider Department 12/04/17 [...] 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 ? INTERVAL HISTORY: [...] M.D., FACRO ? cc: Lawrence Rai MD [address] [place] [id number] ? Katherine Downs MD [facility] [address] [place] [address] ? Dr. Berman ? This note was dictated with Jazmin Naturally Speaking and may contain some grammatical errors due to limitations of the software. Anatoliy Ha MA was present in the examination room throughout the encounter. Referring Provider: FARHEEN CRONIN [[id number]] Allergies As of Date: 12/04/2017 (No Known [...] Status:Closed by FARHEEN CRONIN MD on 12/04/17 [facility] CNOVSPon 12-04-2017 CNOVSP Visit (SP) Office (HEMASA) JOSS WASHINGTON ([id number]) 1950 F Date Time Provider Department 12/04/17 11:00 AM LISA WILLAMS) CHRISS During your visit today, we recorded the following information about you: Temperature Pulse Respiration Blood pressure 98.3 degrees 72/minute 16/minute 141/73 Weight 132 kg Lisa Willams APRN.CNP 12/10/2017 1:24 PM Signed HPI Joss Corea Felix is [...] Dr. Downs at this time. 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 ? INTERVAL HISTORY: [...] M.D., FACRO ? cc: Lawrence Rai MD [facility] [place] [address] ? Katherine Downs MD [facility] [address] [place] [address] ? Dr. Berman ? This note was dictated with Jazmin Naturally Speaking and may contain some grammatical errors due to limitations of the software. Anatoliy Ha MA was present in the examination room throughout the encounter. Normal [facility] CNOVon 10-30-2017 CNOV Office Visit (RADTSA ) JOSS WASHINGTON ([id number]) 1950 F Date Time Provider Department 10/30/17 [...] pathologic stage 0 (Tis Nx M0), ER-positive, WI-positive, s/p partial mastectomy ? INTERVAL HISTORY: Mrs. [...] Cronin M.D., FACRO cc: Lawrence Rai MD [address] [place] [phone] ? Katherine Downs MD [facility] [address] [place] [address] ? [address]. Berman ? This note was dictated with Jazmni Naturally Speaking and may contain some grammatical errors due to limitations of the software. Dexter De León RN was present in the examination room throughout the encounter. Referring Provider: FARHEEN CRONIN [[id number]] Allergies As of Date: 10/30/2017 (No Known [...] by FARHEEN CRONIN MD on 10/30/17 Normal [facility] PROGRESSon 10-30-2017 Protein mass conc HNO ID: [id number] Author: Farheen Cronin Service: (none) Author Type: Physician Type: Progress Notes Filed: 10/30/2017 3:16 PM Note Text: Radiation Oncology - Follow Up Note PATIENT NAME: Joss Washington PATIENT DIAGNOSIS: DCIS of the Right breast, UIQ, pathologic stage 0 (Tis Nx M0), ER-positive, WI-positive, s/p partial mastectomy ? INTERVAL HISTORY: Mrs. [...] Cronin M.D., FACRO cc: Lawrence Rai MD [address] [place] [id number] ? Katherine Downs MD [facility] [address] [place] [address] ? Dr. Berman ? This note was dictated with Radhaon Naturally Speaking and may contain some grammatical errors due to limitations of the software. Dexter De León RN was present in the examination room throughout the encounter. Normal [facility] PROGRESSon 10-16-2017 Protein mass conc HNO ID: [id number] Author: Farheen Cronin Service: (none) Author Type: Physician Type: Progress Notes Filed: 10/17/2017 12:34 AM Note Text: [facility] Radiation Oncology Department RADIATION ONCOLOGY - COMPLETION NOTE PATIENT: JOSS WASHINGTON : 1950 DATES OF TREATMENT: 08/27/2017 to 10/15/2017 DIAGNOSIS: DCIS of the Right breast, UIQ, pathologic stage 0 (Tis Nx M0), ER-positive, WI-positive, s/p partial mastectomy AREA TREATED: Right Breast [...] JULIETTE 10/16/20179:57 AM cc: Dr. Lawrence Downs [facility] CNOVon 10-14-2017 CNOV Office Visit (RADTSA ) FELIXJOSS ([id number]) 1950 F Date Time Provider Department 10/14/17 [...] the Right?breast, UIQ,?pathologic?stage 0 (Tis Nx M0),?ER-positive, WI-positive, s/p?partial mastectomy ? COURSE: definitive AREA TREATED: [...] Status:Closed by FARHEEN CRONIN MD on 10/14/17 [facility] PROGRESSon 10-14-2017 Protein mass conc HNO ID: [id number] Author: Farheen Cronin Service: (none) Author Type: Physician Type: Progress Notes Filed: 10/14/2017 2:16 PM Note Text: Radiation Oncology - On Treatment Review (OTR) Note PATIENT NAME: Joss Washington PATIENT DIAGNOSIS: DCIS?of the Right?breast, UIQ,?pathologic?stage 0 (Tis Nx M0),?ER-positive, WI-positive, s/p?partial mastectomy ? COURSE: definitive AREA TREATED: [...] as planned. ? Farheen Cronin MD? Normal [facility] CNOVon 10-07-2017 CNOV Office Visit (RADTSA ) JOSS WASHINGTON ([id number]) 1950 F Date Time Provider Department 10/07/17 [...] the Right?breast, UIQ,?pathologic?stage 0 (Tis Nx M0),?ER-positive, WI-positive, s/p?partial mastectomy ? COURSE: definitive AREA TREATED: [...] by FARHEEN CRONIN MD on 10/07/17 Normal [facility] PROGRESSon 10-07-2017 Protein mass conc HNO ID: [id number] Author: Farheen Cronin Service: (none) Author Type: Physician Type: Progress Notes Filed: 10/07/2017 11:21 AM Note Text: Radiation Oncology - On Treatment Review (OTR) Note PATIENT NAME: Joss Washington PATIENT DIAGNOSIS: DCIS?of the Right?breast, UIQ,?pathologic?stage 0 (Tis Nx M0),?ER-positive, WI-positive, s/p?partial mastectomy ? COURSE: definitive AREA TREATED: [...] as planned. ? Farheen Cronin MD? Normal [facility] CNOVon 09-30-2017 CNOV Office Visit (RADTSA ) JOSS WASHINGTON ([id number]) 1950 F Date Time Provider Department 09/30/17 [...] the Right?breast, UIQ,?pathologic?stage 0 (Tis Nx M0),?ER-positive, WI-positive, s/p?partial mastectomy ? COURSE: definitive AREA TREATED: [...] by FARHEEN CRONIN MD on 09/30/17 Normal [facility] PROGRESSon 09-30-2017 Protein mass conc HNO ID: [id number] Author: Farheen Cronin Service: (none) Author Type: Physician Type: Progress Notes Filed: 09/30/2017 11:48 AM Note Text: Radiation Oncology - On Treatment Review (OTR) Note PATIENT NAME: Joss Washington PATIENT DIAGNOSIS: DCIS?of the Right?breast, UIQ,?pathologic?stage 0 (Tis Nx M0),?ER-positive, WI-positive, s/p?partial mastectomy ? COURSE: definitive AREA TREATED: [...] as planned. ? Farheen Cronin MD? Normal [facility] CNOVon 09-22-2017 CNOV Office Visit (RADTSA ) JOSS WASHINGTON ([id number]) 1950 F Date Time Provider Department 09/22/17 [...] the Right?breast, UIQ,?pathologic?stage 0 (Tis Nx M0),?ER-positive, WI-positive, s/p?partial mastectomy ? COURSE: definitive AREA TREATED: [...] right breast*INVALID FOR* Visit Notes: >> Anatoliy (Traveling Phlebotomist) CLARA Ha FriSep 22, 2017 10:22 AM Status: Signed Status: Post-menopausal. 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 COURSE: definitive AREA TREATED: [...] as planned. ? Farheen Cronin MD Normal [facility] CBC and Differentialon 09-18 Abs Baso 0.03 k/uL Normal 0.00-0.10 [facility] Abs [place] 0.45 k/uL Normal 0.00-0.86 [facility] Abs Neut 5.16 k/uL Normal 1.45-7.50 [facility] Basophils/100 WBC (Bld) 0.4 % Normal [facility] Eosinophils #/vol (Bld) 0.23 10*3/uL Normal 0.00-0.45 [facility] Eosinophils/100 WBC (Bld) 3.2 % Normal [facility] Erythrocyte distribution width Ratio (RBC) 15.0 % Normal 11.5-15.0 [facility] Hematocrit Volume Fraction (Bld) 39.1 % Normal 36.0-46.0 [facility] Hemoglobin mass conc (Bld) 13.0 g/dL Normal 11.5-15.5 [facility] Lymphocytes #/vol (Bld) 1.40 10*3/uL Normal 1.00-4.00 [facility] Lymphocytes/100 WBC (Bld) 19.3 % Normal [facility] MCH Entitic mass (RBC) 30.6 pG Normal 26.0-34.0 [facility] MCHC mass conc (RBC) 33.2 g/dL Normal 30.5-36.0 [facility] MCV Entitic volume (RBC) 92.0 fL Normal 80.0-100.0 [facility] Monocytes/100 WBC (Bld) 6.2 % Normal [facility] Neutrophils/100 WBC (Bld) 70.9 % Normal [facility] Platelet mean volume Entitic volume (Bld) 9.5 fL Normal 9.0-12.7 [facility] Platelets #/vol (Bld) 272 10*3/uL Normal 150-400 [facility] RBC #/vol (Bld) 4.25 10*6/uL Normal 3.90-5.[address] [facility] WBC #/vol (Bld) 7.27 10*3/uL Normal 3.70-11.[address] [facility] CNOVon 09-18-2017 CNOV Office Visit (RADTSA ) FELIXJOSS ([id number]) 1950 F Date Time Provider Department 09/18/17 [...] De León RN Referring Provider: FARHEEN CRONIN [[id number]] Allergies As of Date: 09/18/2017 (No Known [...] Visit Notes: >> Dexter De León RN [facility] Sep 18, 2017 10:01 AM Status: [...] by DEXTER DE LEÓN on 09/18/17 Normal [facility] CNOVon 09-16-2017 CNOV Office Visit (RADTSA ) JOSS WASHINGTON ([id number]) 1950 F Date Time Provider Department 09/16/17 [...] the Right?breast, UIQ,?pathologic?stage 0 (Tis Nx M0),?ER-positive, WI-positive, s/p?partial mastectomy ? COURSE: definitive AREA TREATED: Right breast CURRENT DOSE: 2700 cGy in 15 fx PLANNED DOSE: 5040 cGy in 28 fx ? SUBJECTIVE: Mrs. Wodo is doing very well. 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 COURSE: definitive AREA TREATED: [...] treatment as planned. ? 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 COURSE: definitive AREA TREATED: [...] requiring intervention. Signed by: Jem Santana MD [facility] CNOVon 09-08-2017 CNOV Office Visit (RADTSA ) JOSS WASHINGTON ([id number]) 1950 F Date Time Provider Department 6/11/18 [...] the Right?breast, UIQ,?pathologic?stage 0 (Tis Nx M0),?ER-positive, WI-positive, s/p?partial mastectomy ? COURSE: definitive AREA TREATED: [...] by JEM SANTANA MD on 09/18/17 Normal [facility] CBC and Differentialon 09-04 Abs Baso 0.03 k/uL Normal <0.11 [facility] Comment on above: Performed By: #### C BCDIF ####[place] [address] [address] [place], [place] [phone] Abs [place] 0.45 k/uL Normal <0.87 [facility] Comment on above: Performed By: #### C BCDIF ####[facility] [place], [place] [phone] Abs Neut 3.74 k/uL Normal 1.45-7.50 [facility] Comment on above: Performed By: #### C BCDIF ####[facility] [place], [place] [phone] Basophils/100 WBC (Bld) 0.5 % Normal [facility] Comment on above: Performed By: #### C BCDIF ####[facility] [place] [address] [phone] Comment AGC=3.68 Normal [facility] Comment on above: Result Comment: Prel iminary result. Interpret with caution. Final results may vary. Results requested and read back by: /09/04/1710/15/1026/OSITO CASTELLON Performed By: #### C BCDIF ####[place] [address] [address] [place], [place] [phone] Eosinophils #/vol (Bld) 0.23 10*3/uL Normal <0.46 [facility] Comment on above: Performed By: #### C BCDIF ####[place] [address] [address] [place] [phone] Eosinophils/100 WBC (Bld) 3.7 % Normal [facility] Comment on above: Performed By: #### C BCDIF ####[place] [address] [address] [phone] Erythrocyte distribution width Ratio (RBC) 15.5 % High 11.5-15.0 [facility] Comment on above: Performed By: #### C BCDIF ####[place] [address] [address] [phone] Hematocrit Volume Fraction (Bld) 37.1 % Normal 36.0-46.0 [facility] Comment on above: Performed By: #### C BCDIF ####[place] [address] [address] [phone] Hemoglobin mass conc (Bld) 12.2 g/dL Normal 11.5-15.5 [facility] Comment on above: Performed By: #### C BCDIF ####[place] [address] [address] [phone] Lymphocytes #/vol (Bld) 1.78 10*3/uL Normal 1.00-4.00 [facility] Comment on above: Performed By: #### C BCDIF ####[place] [address] [address] [phone] Lymphocytes/100 WBC (Bld) 28.6 % Normal [facility] Comment on above: Performed By: #### C BCDIF ####[place] [address] [address] [phone] MCH Entitic mass (RBC) 30.3 pG Normal 26.0-34.0 [facility] Comment on above: Performed By: #### C BCDIF ####[place] [address] [address], [place] [phone] MCHC mass conc (RBC) 32.9 g/dL Normal 30.5-36.0 [facility] Comment on above: Performed By: #### C BCDIF ####[place] [address] [address], [place] [phone] MCV Entitic volume (RBC) 92.1 fL Normal 80.0-100.0 [facility] Comment on above: Performed By: #### C BCDIF ####[place] [address] [address] [phone] Monocytes/100 WBC (Bld) 7.2 % Normal [facility] Comment on above: Performed By: #### C BCDIF ####[place] [address] [address] [phone] Neutrophils/100 WBC (Bld) 60.0 % Normal [facility] Comment on above: Performed By: #### C BCDIF ####[place] [address] [address], [place] [phone] Platelet mean volume Entitic volume (Bld) 9.3 fL Normal 9.0-12.7 [facility] Comment on above: Performed By: #### C BCDIF ####[place] [address] [address], [place] [phone] Platelets #/vol (Bld) 285 10*3/uL Normal 150-400 [facility] Comment on above: Performed By: #### C BCDIF ####[place] [address] [address], [place] [phone] RBC #/vol (Bld) 4.03 10*6/uL Normal 3.90-5.[address] [facility] Comment on above: Performed By: #### C BCDIF ####[place] [address] [place], [place] [phone] WBC #/vol (Bld) 6.19 10*3/uL Normal 3.70-11.[address] [facility] Comment on above: Performed By: #### C BCDIF ####[facility] [place], [place] [phone] CNOVon 09-04-2017 CNOV Office Visit (RADTSA ) JOSS WASHINGTON ([id number]) 1950 F Date Time Provider Department 09/04/17 [...] De León RN Referring Provider: FARHEEN CRONIN [[id number]] Allergies As of Date: 09/04/2017 (No Known [...] Notes: >> Dexter (Clara) CLARA De León [facility] Sep 04, 2017 12:44 PM Status: [...] Status:Closed by DEXTER DE LEÓN on 09/04/17 [facility] CNOVon 09-02-2017 CNOV Office Visit (RADTSA ) FELIXJOSS ([id number]) 1950 F Date Time Provider Department 09/02/17 [...] pathologic stage 0 (Tis Nx M0), ER-positive, WI-positive, s/p partial mastectomy COURSE: definitive AREA TREATED: [...] right breast*INVALID FOR* Visit Notes: >> Anatoliy (Traveling Phlebotomist) CLARA Ha loni Sep 02, 2017 10:09 AM Status: Signed Status: Post-menopausal. Encounter Status:Closed by FARHEEN CRONIN MD on 09/02/17 [facility] PROGRESSon 09-02-2017 Protein mass conc HNO ID: [id number] Author: Farheen Cronin Service: (none) Author Type: Physician Type: Progress Notes Filed: 09/02/2017 1:31 PM Note Text: Radiation Oncology - On Treatment Review (OTR) Note PATIENT NAME: Joss Washington PATIENT DIAGNOSIS: DCIS of the Right breast, UIQ, pathologic stage 0 (Tis Nx M0), ER-positive, WI-positive, s/p partial mastectomy COURSE: definitive AREA TREATED: [...] radiation treatment as planned. Farheen Cronin MD [facility] CNOVon 08-27-2017 CNOV Office Visit (RADTSA ) JOSS WASHINGTON ([id number]) 1950 F Date Time Provider Department 08/27/17 1:30 PM JEM SANTANA During your visit today, we recorded the following information about you: Dexter De León RN, RN 08/27/2017 2:20 PM Signed Status: Post-menopausal. 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 Plan and MU calculations [...] of treatment. Signed by: Jem Santana MD [facility] CT NON-RADIOLOGY -NBNRo n 08-20-2017 [facility] CT NON-RADIOLOGY -NBNR [facility] - CT Images - Obtained Outside of Imaging [facility] [id number] [facility] CNCNPATEDon 08-20-2017 CNCNPATED Education (RADTSA) JOSS WASHINGTON ([id number]) 1950 F Date Time Provider Department 08/20/17 ANATOLIY HA) RADTSA Reason for Visit: Patient Education [91] Visit Notes: >> Anatoliy Ha RN FriAugust 20, 2017 3:46 PM Status: Signed Radiation Therapy - Patient Education Note PATIENT NAME: Joss Washington PATIENT August 20, 2017 [facility] FACILITY/LOCATION: [facility] READINESS TO LEARN Cognitive Ability: Alert and [...] need for social work, van service, and central office associate. Was approved? No Signed by: Anatoliy Ha [...] Encounter Status:Closed by ANATOLIY HA on 08/20/17 [facility] CNOVon 08-20-2017 CNOV Office Visit (CARLOSTSA ) JOSS WASHINGTON ([id number]) 1950 F Date Time Provider Department 08/20/17 [...] pathologic stage 0 (Tis Nx M0), ER-positive, WI-positive, s/p partial mastectomy. HPI: 67 year old [...] with her . 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 COMPLETE REVIEW [...] Farheen Cronin MD cc: [place] [address] [place] [address] Katherine Downs MD [facility] [address] [place] [address] Dr. Berman This note was dictated with Dragon Naturally Speaking and may contain some grammatical errors due to limitations of the software. Referring Provider: KATHERINE DOWNS [[id number]] Allergies As of Date: 08/20/2017 (No Known [...] by FARHEEN CRONIN MD on 08/20/17 Normal [facility] PROGRESSon 08-20-2017 Protein mass conc HNO ID: [id number] Author: Farheen Cronin Service: (none) Author Type: Physician Type: Progress Notes Filed: 08/20/2017 3:39 PM Note Text: Radiation Oncology - New Patient/Consult Note PATIENT NAME: Joss Washington PATIENT REQUESTING PROVIDER: Dr. Katherine Downs DIAGNOSIS: 67 year old female with DCIS of the Right breast, UIQ, pathologic stage 0 (Tis Nx M0), ER-positive, WI-positive, s/p partial mastectomy. HPI: 67 year old [...] with her . 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 COMPLETE REVIEW [...] Farheen Cronin MD cc: Lawrence Rai MD [address] [place] [phone] Katherine Downs MD [facility] [address] [place] [address] Dr. Berman This note was dictated with Dragon Naturally Speaking and may contain some grammatical errors due to limitations of the software. 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 / NRS 08/20/20173:59 PM [facility] Protein mass conc HNO ID: [id number] Author: Farheen Cronin Service: (none) Author Type: Physician Type: Progress Notes Filed: 08/27/2017 12:34 AM Note Text: JOSS WASHINGTON [id number] 08/20/2017 [facility] Department of Radiation Oncology Treatment [...] Electronically Signed Farheen Cronin M.D. 08/26/20171:02 PM [facility] CNOVSPon 08-14-2017 CNOVSP Visit (SP) Office (HEMACL) JOSS WASHINGTON ([id number]) 1950 F Date Time Provider Department 08/14/17 [...] Katherine Downs MD Referring Provider: GEREMIAS BERMAN [[id number]] Allergies As of Date: 08/14/2017 (No Known Allergies) Date Reviewed: 08/14/2017 Reviewed by: Iesha Luis - Fully Assessed Primary Visit Diagnosis:Ductal carcinoma in situ (DCIS) of right breast [D05.11] Order(s):RAD/ONC CONSULT [9037] Order #: [id number]: 1 Prescriptions as of 08/14/2017 Sig: VENTOLIN [...] by KATHERINE DOWNS MD on 08/14/17 Normal [facility] PROGRESSon 08-14-2017 Protein mass conc HNO ID: [id number] Author: Katherine Downs Service: (none) Author Type: [...] - RAD/ONC CONSULT Katherine Downs MD Normal [facility] US-US GUIDE LOCAL BREAST RT IMPORTon 07-04-2017 US-US GUIDE LOCAL BREAST RT IMPORT Images were obtained outside of [facility] [id number] Normal [facility] MAMM OUTSIDE DICOM IMPORT -N BNRon 06-18-2017 MAMM OUTSIDE DICOM IMPORT -NBNR Images were obtained outside of [facility] [id number] Normal [facility] Encounters Encounter Date Encounter Type Care Provider Facility Start: 08-06-2024 End: 08-06-2024 ambulatory [facility] Start: 05-07-2024 End: 05-07-2024 ambulatory [facility] Start: 03-16-2022 End: 03-17-[address] LAWRENCE [facility]I Facility:[facility] Start: 02-28-[address] LAWRENCE RAI Facility :[facility] Start: 02-08-2022 End: 02-09-[address] LAWRENCE [facility]I Facility:[facility] Start: 11-30-2021 End: 12-01-[address] LAWRENCE RAI Facility:[facility] Start: 06-11-2018 End: 06-15-2018 Patient encounter procedure FARHEEN CRONIN [facility] Start: 02-12-2018 End: 02-13-2018 Patient encounter procedure FARHEEN CRONIN [facility] Start: 12-04-2017 End: 12-11-2017 Patient encounter procedure LISA WILLAMS [facility] Start: 10-30-2017 End: 10-30-2017 Patient encounter procedure FARHEEN CRONIN [facility] Start: 10-15-2017 End: 10-20-2017 Patient encounter procedure KATHERINE DOWNS [facility] Start: 10-14-2017 End: 10-14-2017 Patient encounter procedure FARHEEN CRONIN [facility] Start: 10-13-2017 End: 10-15-2017 Patient encounter procedure KATHERINE DOWNS [facility] Start: 10-09-2017 End: 10-30-2017 Patient encounter procedure KATHERINE DOWNS [facility] Start: 10-08-2017 End: 10-10-2017 Patient encounter procedure KATHERINE DOWNS [facility] Start: 10-07-2017 End: 10-07-2017 Patient encounter procedure FARHEEN CRONIN [facility] Start: 10-06-2017 End: 10-10-2017 Patient encounter procedure KATHERINE DOWNS [facility] Start: 10-03-2017 End: 10-08-2017 Patient encounter procedure KATHERINE DOWNS [facility] Start: 10-02-2017 End: 10-20-2017 Patient encounter procedure KATHERINE DOWNS [facility] Start: 09-30-2017 End: 09-30-2017 Patient encounter procedure ZULEMAAdrián Celeste CRONIN [facility] Start: 09-29-2017 End: 10-06-2017 Patient encounter procedure KATHERINE DOWNS [facility] Start: 09-26-2017 End: 10-02-2017 Patient encounter procedure KATHERINE DOWNS [facility] Start: 09-25-2017 End: 09-29-2017 Patient encounter procedure KATHERINE DOWNS [facility] Start: 09-24-2017 End: 10-06-2017 Patient encounter procedure KATHERINE DOWNS [facility] Start: 09-23-2017 End: 09-29-2017 Patient encounter procedure KATHERINE DOWNS [facility] Start: 09-22-2017 End: 09-22-2017 Patient encounter procedure FARHEEN CRONIN [facility] Start: 09-19-2017 End: 09-22-2017 Patient encounter procedure KATHERINE DOWNS [facility] Start: 09-18-2017 End: 09-18-2017 Patient encounter procedure FARHEEN CRONIN [facility] Start: 09-17-2017 End: 09-30-2017 Patient encounter procedure KATHERINE DOWNS [facility] Start: 09-16-2017 End: 09-16-2017 Patient encounter procedure FARHEEN CRONIN [facility] Start: 09-15-2017 End: 09-17-2017 Patient encounter procedure KATHERINE DOWNS [facility] Start: 09-12-2017 End: 09-17-2017 Patient encounter procedure KATHERINE DOWNS [facility] Start: 09-11-2017 End: 09-15-2017 Patient encounter procedure KATHERINE DOWNS [facility] Start: 09-10-2017 End: 09-22-2017 Patient encounter procedure KATHERINE DOWNS [facility] Start: 09-09-2017 End: 09-15-2017 Patient encounter procedure KATHERINE DOWNS [facility] Start: 09-08-2017 End: 09-08-2017 Patient encounter procedure JEM SANTANA [facility] Start: 09-05-2017 End: 09-15-2017 Patient encounter procedure KATHERINE DOWNS [facility] Start: 09-04-2017 End: 09-04-2017 [facility] encounter [facility] [facility] Start: 09-03-2017 End: 09-15-2017 Patient encounter procedure KATHERINE DOWNS [facility] Start: 09-02-2017 End: 09-02-2017 Patient encounter procedure FARHEEN CRONIN [facility] Start: 09-01-2017 End: 09-04-2017 Patient encounter procedure KATHERINE DOWNS [facility] Start: 08-29-2017 End: 09-01-2017 Patient encounter procedure KATHERINE DOWNS [facility] Start: 08-28-2017 End: 09-01-2017 Patient encounter procedure KATHERINE DOWNS [facility] Start: 08-27-2017 End: 08-27-2017 Patient encounter procedure JEM SANTANA [facility] Start: 08-20-2017 End: 08-21-2017 Patient encounter procedure FARHEEN Alonso CRONIN [facility] Start: 08-14-2017 End: 08-15-2017 Patient encounter procedure KATHERINE Oliva JAIMIEROSIE [facility] Payers Date Payer Category Payer Unknown [id number] 1958 Medicare [id number] 1958 Self-pay [id number] 1958 Unknown [id number] 1950 Unknown [id number] 2.16.84 [id number] 1950 Unknown [id number] 2.16.84 [id number] 1950 Unknown [id number] 2.16.84 [id number] 1950 Unknown [id number] 2.16.84 [id number] Progress note 08-06-2024 Note Date & Type Note Facility 08-06-2024 Note [facility] Note Reason for cardiology [...] and right breast cancer Patient presented to [facility] on 03/18/2024 with vision changes which [...] monitor 03/19/2024 Review (more content not included)... [facility] Progress note 05-07-2024 Note Date & Type Note Facility 05-07-2024 Note [facility] Note Reason for cardiology consult: TIA Chief Complaint: dyspnea on exertion HPI: Joss Washington is a 73 y.o. female with history of hypertension, hyperlipidemia, recent TIA, and right breast cancer Patient presented to [facility] on 03/18/2024 with vision changes which [...] has no past medical history of Stroke ([facility] Surgical History She has a past [...] ische (more content not included)... [facility] Summary Purpose Family History No Family History Records FoundNo Family History Records FoundNo Family History Records FoundNo Family History Records Found Advance Directives No Advanced Directives Records FoundNo Advanced Directives Records FoundNo Advanced Directives Records FoundNo Advanced Directives Records Found Additional Source Comments INFORMATION SOURCE (unrecogn ized section and content) DATE CREATED AUTHOR 06/15/2018 [facility] DATE CREATED AUTHOR AUTHOR'S ORGANIZ ATION [facility]26/2019 [facility] DATE CREATED AUTHOR AUTHOR'S ORGANIZ ATION 03/22/2022 Roc Renetta [facility] DATE CREATED AUTHOR AUTHOR'S ORGANIZ ATION 08/08/2024 [facility] FOR RECORDS PERTAINING TO PATIENTS WHO ARE [...] BE BASED ON THE PRIMARY CLINICAL RECORDS. [facility] provides no warranty or guarantee of the accuracy or completeness of information in this document.
[2024-08-19 08:26] LABS: Alanine Aminotransferase 19 U/L (14-59); Albumin Globulin Ratio 0.7; Alkaline Phosphatase 115 U/L (46-116); Anion Gap 12.6; Aspartate Amino Transferase 14 U/L (15-37); BUN Creatinine Ratio 28.1; Bilirubin Total 0.4 mg/dL (0.2-1.0); Calcium 9.6 mg/dL (8.5-10.1); Carbon Dioxide 29.3 mmol/L (21.0-32.0); Chloride 102 mmol/L (98-107); Estimated GFR (African America 50 (>=60 mL/min/1.73m^2); Estimated GFR (Non-African Ame 41 (>=60 mL/min/1.73m^2); Globulin 4.4 g/dL; Glucose 109 mg/dL (74-106); Potassium 4.9 mmol/L (3.5-5.1); Sodium 139 mmol/L (136-145); Total Protein 7.4 g/dL (6.4-8.2)
[2024-08-19 08:33] LABS: Estimated Average Glucose 137 mg/dL; Glycohemoglobin A1C 6.4 % (4.5-6.2)
[2024-08-19 08:35] LABS: Free T3 2.44 pg/mL (2.18-3.98); Thyroid Stimulating Hormone 4.143 uIU/mL (0.358-3.740)
[2024-08-20 08:10] LABS: Insulin 41.8 uIU/mL (2.6-24.9)
== END 2024-08-19 07:11 | disposition home or self-care (01) ==
LOC: LAB 07:11
PROVIDERS: PCP Family Medicine; Visit Provider Family Medicine
DX: E66.01 Morbid (severe) obesity due to excess calories (principal); I10 Essential (primary) hypertension; R53.83 Other fatigue
CPT/HCPCS: 36415; 80053; 83036; 83525; 84436; 84443; 84481

== ENCOUNTER 2024-08-31 07:05 | Outpatient (OUT) | payer MEDICARE, OTHER, SELFPAY ==
--- OUTSIDE RECORDS SUMMARY | 2024-08-31 07:08 | XMS_ITS | CCD ---
Author Organization [facility] Care Team Providers Care Credentialer Name Role Phone KATHERINE DOWNS Attending Unavailable [...] CRONIN, KHALID R Referring Unavailable LISA WILLAMS ([facility]) Attending Unavailabl e CRONIN, KHALID R Referring Unavailable CRONIN, KHALID R Attending Unavailable LAWRENCE RAI Referring Unavailable CRONIN, KHALID R Attending Unavailable LAWRENCE RAI Referring Unavailable BETY, DR BRAVO Primary Care Unavailable BETY, DR BRAVO Admitting Unavailable HOY, DR BRAVO Attending Unavailable HOY, DR BRAVO Consulting Unavailable Libia Gibbs Consulting Unavailable BETY, DR BRAOV Admitting Unavailable HOStu, DR BRAVO Attending Unavailable [...] [facility] Office Visiton 08-06-2024 Follow-up visit [id number] FelixJoss 1950 Date Provider Department Center 08/06/2024 JOHN BIGGS Family History Problem Relation Age of Onset Hypertension Mother Stroke Mother Hyperlipidemia Mother Hypertension Father Coronary artery disease Father Hyperlipidemia Father Cancer Father Family Status - Relation Status Age at Mother Father Level of Service:55559 [place] OFFICE/OUTPATIENT ESTABLISHED MOD MDM 30 MIN Reason for Visit and Comments: Hyperlipidemia [182] - Had lipid in May 2024. Hypertension [473769] - She brought BP log with her. Shortness of Breath [521184] - She attributes her MORENO to her weight. Says it's hard for her to walk a lot due to knee pain. Palpitations [148155] - Hasn't had palpitations recently. Transient Ischemic Attack [759541] - Had bubble study in May 2024. She wants to know if she can stop Plavix due to TIA being ruled out. [facility] Office Visiton 05-07-2024 Follow-up visit [id number] Joss Washington 1950 Provider Department Center 05/07/2024 JOHN BIGGS Family History Problem Relation Age of Onset Hypertension Mother Stroke Mother Hyperlipidemia Mother Hypertension Father Coronary artery disease Father Hyperlipidemia Father Cancer Father Family Status - Relation Status Age at Mother Father Level of Service:80337 [place] OFFICE/OUTPATIENT NEW MODERATE MDM 45 MINUTES Reason for Visit and Comments: Chest Pain [942273] - Patient describes it as chest discomfort . Says she was told 40+ years ago that she had mitral valve prolapse. Echo was done with recent admission. Hypertension [768156] - She was admitted to [facility] in Feb 2024 for TIA and hypertension. Hyperlipidemia [182] Shortness of Breath [415531] - C/o MORENO. Palpitations [695514] - She wore 7 day Holter after hospital admission. She is currently wearing a 30 day event monitor. Normal [facility] XR SHOULDER LT 2V or >on [...] LIBIA GIBBS Date: 2022-03-17 13:31 Normal [facility] MG MAMM ABHAY DIAG W CADon MG MAMM ABHAY DIAG W CAD Patient: JOSS WASHINGTON Exam Date: 02/08/2022 : 1950 Gender:F Ordering : DR LAWRENCE RAI . Admission #: [id number] Family : Order #: [id number] CLICK HERE TO VIEW EXAM RADIOLOGY REPORT [...] brain cancer at age 69. LOCATION: [facility] BREAST COMPOSITION: Scattered areas fibroglandular density. [...] M.D. on 02/08/2022 at 08:46 Normal [facility] T4, T3U, FTI LABCORPon 12-01 Free Thyroxine Index 1.7 Normal 1.2-4.9 [facility] Comment on above: Performed By: #### T HYLC #### [facility] [address] [place] [address] Dr. Sheldon Cordero T3 Uptake 27 % Normal 24-39 [facility] Comment on above: Performed By: #### T HYLC #### [facility] [address] [place] [address] Dr. Sheldon Cordero T4 [Mass/Vol] 6.4 ug/dL Normal 4.5-12.0 [facility] Comment on above: Performed By: #### T HYLC #### [facility] [address] [place] [address] Dr. Sheldon Cordero CBC AUTO DIFFon 11-30-2021 BASO # 0.1 103/ul Normal 0.0-0.1 [facility] Comment on above: Performed By: #### C BC #### [facility] [address] [place] [address] Dr. Sheldon Cordero Basophils/100 WBC (Bld) 0.8 % Normal 0.2-2.0 [facility] Comment on above: Performed By: #### C BC #### [facility] [address] [place] [address] Dr. Sheldon Cordero EO # 0.3 103/ul Normal 0.0-0.7 [facility] Comment on above: Performed By: #### C BC #### [facility] [address] [place] [address] Dr. Sheldon Cordero Eosinophils/100 WBC (Bld) 3.8 % Normal 0.9-7.0 [facility] Comment on above: Performed By: #### C BC #### [facility] [address] [place] [address] Dr. Sheldon Cordero Erythrocyte distribution width (RBC) [Ratio] 14.6 % Normal 11.0-15.0 [facility] Comment on above: Performed By: #### C BC #### [facility] [address] [place] [address] Dr. Sheldon Cordero Hematocrit (Bld) [Volume fraction] 39.3 % Normal 36.0-48.0 [facility] Comment on above: Performed By: #### C BC #### [facility] [address] [place] [address] Dr. Sheldon Cordero Hemoglobin (Bld) [Mass/Vol] 12.4 g/dL Normal 12.0-16.0 [facility] Comment on above: Performed By: #### C BC #### [facility] [address] [place] [address] Dr. Sheldon Cordero IG # 0.08 10e3/ul Critically high 0.00-0.03 [facility] Comment on above: Performed By: #### C BC #### [facility] [address] [place] [address] Dr. Sheldon Cordero IG % 1.1 % Critically high 0.0-0.5 [facility] Comment on above: Performed By: #### C BC #### [facility] [address] [place] [address] Dr. Sheldon Cordero LYMPH # 1.8 103/ul Normal 1.2-3.8 [facility] Comment on above: Performed By: #### C BC #### [facility] [address] [place] [address] Dr. Sheldon Cordero Lymphocytes/100 WBC (Bld) 25.1 % Normal 20.5-60.0 [facility] Comment on above: Performed By: #### C BC #### [facility] [address] [place] [address] Dr. Sheldon Cordero MANUAL DIFF REQ NO Normal [facility] Comment on above: Performed By: #### C BC #### [facility] [address] [address] [address] Sheldon Cordero MCH (RBC) [Entitic mass] 29.6 pg Normal 26.7-34.0 [facility] Comment on above: Performed By: #### C BC #### [facility] [address] [place] [address] Dr. Sheldon Cordero MCHC (RBC) [Mass/Vol] 31.6 g/dL Normal 29.9-35.2 [facility] Comment on above: Performed By: #### C BC #### [facility] [address] [place] [address] Dr. Sheldon Cordero MCV (RBC) [Entitic vol] 93.8 fL Normal 81.0-99.0 [facility] Comment on above: Performed By: #### C BC #### [facility] [address] [place] [address] Dr. Sheldon Cordero MONO # 0.4 103/ul Normal 0.3-0.8 [facility] Comment on above: Performed By: #### C BC #### [facility] [address] [place] [address] Dr. Sheldon Cordero Monocytes/100 WBC (Bld) 5.8 % Normal 1.7-12.0 [facility] Comment on above: Performed By: #### C BC #### [facility] [address] [place] [address] Dr. Sheldon Cordero NEUT # 4.6 103/ul Normal 1.4-6.5 [facility] Comment on above: Performed By: #### C BC #### [facility] [address] [place] [address] Dr. Sheldon Cordero Neutrophils/100 WBC (Bld) 63.4 % Normal 43.0-75.0 [facility] Comment on above: Performed By: #### C BC #### [facility] [address] [place] [address] Dr. Sheldon Cordero Platelet mean volume (Bld) [Entitic vol] 8.9 fL Critically low 9.5-13.5 [facility] Comment on above: Performed By: #### C BC #### [facility] [address] [address] [address] Sheldon Cordero PLT 277 103/ul Normal 150-450 [facility] Comment on above: Performed By: #### C BC #### [facility] [address] [address] [address] Sheldon Cordero RBC 4.19 106/ul Critically low 4.20-5.40 [facility] Comment on above: Performed By: #### C BC #### [facility] [address] [address] [address] Sheldon Cordero WBC 7.2 103/ul Normal 4.0-11.0 [facility] Comment on above: Performed By: #### C BC #### [facility] [address] [place] [address] Dr. Sheldon Cordero GLYCOHEMOGLOBIN A1Con 2021 ADA RECOMMENDATION SEE BELOW Normal [facility] Comment on above: Result Comment: ADA RECOMMENDED LIMIT 4.0 - 6.0 ADA THERAPEUTIC TARGET < 7.0 ACTION SUGGESTED > 7.0 Performed By: #### A 1C #### [facility] [address] [place] [address] Dr. Sheldon Cordero Glucose [Mass/Vol] 128 mg/dL Normal [facility] Comment on above: Performed By: #### A 1C #### [facility] [address] [place] [address] Dr. Sheldon Cordero HbA1c (Bld) [Mass fraction] 6.1 % Normal 4.5-6.2 [facility] Comment on above: Performed By: #### A 1C #### [facility] [address] [place] [address] Dr. Sheldon Cordero IRONon 11-30-2021 Iron [Mass/Vol] 58.0 ug/dL Normal 50.0-170.0 [facility] Comment on above: Performed By: #### I GERMAN #### [facility] [address] [place] [address] Dr. Sheldon Cordero LIPID PROFILEon 11-30-2021 CHOL-HDL RATIO NORM SEE BELOW Normal [facility] Comment on above: Result Comment: 3.3 - 4.4 LOW RISK 4.4 - 7.1 AVERAGE RISK 7.1 - 11.0 MODERATE RISK >11.0 HIGH RISK Performed By: #### L IPID, TSH, CMP #### [facility] [address] [address] [address] Sheldon Cordero Cholesterol [Mass/Vol] 251 mg/dL Critically high <=200 [facility] Comment on above: Performed By: #### L IPID, TSH, CMP #### [facility] [address] [address] [address] Sheldon Cordero Cholesterol in HDL [Mass/Vol] 70 mg/dL Critically high 40-60 [facility] Comment on above: Performed By: #### L IPID, TSH, CMP #### [facility] [address] [place] [address] Dr. Sheldon Cordero Cholesterol in LDL [Mass/Vol] 161.4 mg/dL Normal [facility] Comment on above: Performed By: #### L IPID, TSH, CMP #### [facility] [address] [place] [address] Dr. Sheldon Cordero Cholesterol.total/Ch olesterol in HDL [Mass ratio] 3.6 {ratio} Normal [facility] Comment on above: Performed By: #### L IPID, TSH, CMP #### [facility] [address] [place] [address] Dr. Sheldon Cordero HDL NORMAL > or = 60 mg/dl - LO W CARDIOVASCULAR RISK <40 mg/dl - HIGH CARDIOVASCULAR RISK Normal [facility] Comment on above: Performed By: #### L IPID, TSH, CMP #### [facility] [address] [place] [address] Dr. Sheldon Cordero LDL CALC NORMAL SEE BELOW Normal [facility] Comment on above: Result Comment: <100 mg/dl OPTIMAL 100 - 129 mg/dl NEAR OR ABOVE OPTIMAL 130 - 159 mg/dl BORDERLINE HIGH 160 - 189 mg/dl HIGH >190 mg/dl VERY HIGH Performed By: #### L IPID, TSH, CMP #### [facility] [address] [place] [address] Dr. Sheldon Cordero Triglyceride [Mass/Vol] 98 mg/dL Normal <=150 [facility] Comment on above: Performed By: #### L IPID, TSH, CMP #### [facility] [address] [address] [address] Sheldon Cordero VLDL CALC 19.6 mg/dL Normal [facility] Comment on above: Performed By: #### L IPID, TSH, CMP #### [facility] [address] [address] [address] Sheldon Cordero PROF 14(COMP METB)on 022 Albumin [Mass/Vol] 3.4 g/dL Normal 3.4-5.0 [facility] Comment on above: Performed By: #### L IPID, TSH, CMP #### [facility] [address] [place] [address] Dr. Sheldon Cordero Albumin/Globulin [Mass ratio] 0.9 {ratio} Normal [facility] Comment on above: Performed By: #### L IPID, TSH, CMP #### [facility] [address] [place] [address] Dr. Sheldon Cordero ALP [Catalytic activity/Vol] 107 U/L Normal 46-116 [facility] Comment on above: Performed By: #### L IPID, TSH, CMP #### [facility] [address] [address] [address] Sheldon Cordero ALT [Catalytic activity/Vol] 17 U/L Normal 14-59 [facility] Comment on above: Performed By: #### L IPID, TSH, CMP #### [facility] [address] [address] [address] Sheldon Cordero Anion gap [Moles/Vol] 10.9 mmol/L Normal [facility] Comment on above: Performed By: #### L IPID, TSH, CMP #### [facility] [address] [place] [address] Dr. Sheldon Cordero AST [Catalytic activity/Vol] 11 U/L Critically low 15-37 [facility] Comment on above: Performed By: #### L IPID, TSH, CMP #### [facility] [address] [address] [address] Sheldon Cordero Bilirubin [Mass/Vol] 0.3 mg/dL Normal 0.2-1.0 [facility] Comment on above: Performed By: #### L IPID, TSH, CMP #### [facility] [address] [address] [address] Sheldon Cordero Calcium [Mass/Vol] 9.1 mg/dL Normal 8.5-10.1 [facility] Comment on above: Performed By: #### L IPID, TSH, CMP #### [facility] [address] [place] [address] Dr. Sheldon Cordero Chloride [Moles/Vol] 106 mmol/L Normal 98-107 [facility] Comment on above: Performed By: #### L IPID, TSH, CMP #### [facility] [address] [place] [address] Dr. Sheldon Cordero CO2 [Moles/Vol] 30.6 mmol/L Normal 21.0-32.0 [facility] Comment on above: Performed By: #### L IPID, TSH, CMP #### [facility] [address] [place] [address] Dr. Sheldon Cordero Creatinine [Mass/Vol] 0.93 mg/dL Normal 0.55-1.02 [facility] Comment on above: Performed By: #### L IPID, TSH, CMP #### [facility] [address] [place] [address] Dr. Sheldon Cordero EGFR-AF ARGENTINE >60 Normal >=60 [facility] Comment on above: Performed By: #### L IPID, TSH, CMP #### [facility] [address] [place] [address] Dr. Sheldon Cordero EGFR-NON AF ARGENTINE =60 Normal >=60 [facility] Comment on above: Performed By: #### L IPID, TSH, CMP #### [facility] [address] [place] [address] Dr. Sheldon Cordero Globulin (S) [Mass/Vol] 4.0 g/dL Normal [facility] Comment on above: Performed By: #### L IPID, TSH, CMP #### [facility] [address] [place] [address] Dr. Sheldon Cordero Glucose [Mass/Vol] 101 mg/dL Normal 74-106 [facility] Comment on above: Performed By: #### L IPID, TSH, CMP #### [facility] [address] [place] [address] Dr. Sheldon Cordero Potassium [Moles/Vol] 4.5 mmol/L Normal 3.5-5.1 [facility] Comment on above: Performed By: #### L IPID, TSH, CMP #### [facility] [address] [place] [address] Dr. Sheldon Cordero Protein [Mass/Vol] 7.4 g/dL Normal 6.4-8.2 [facility] Comment on above: Performed By: #### L IPID, TSH, CMP #### [facility] [address] [place] [address] Dr. Sheldon Cordero Sodium [Moles/Vol] 143 mmol/L Normal 136-145 [facility] Comment on above: Performed By: #### L IPID, TSH, CMP #### [facility] [address] [place] [address] Dr. Sheldon Cordero Urea nitrogen [Mass/Vol] 18.0 mg/dL Normal 7.0-18.0 [facility] Comment on above: Performed By: #### L IPID, TSH, CMP #### [facility] [address] [place] [address] Dr. Sheldon Cordero Urea nitrogen/Creatinine [Mass ratio] 19.4 mg/mg Normal [facility] Comment on above: Performed By: #### L IPID, TSH, CMP #### [facility] [address] [place] [address] Dr. Sheldon Cordero TSHon 11-30-2021 TSH 2.774 uIU/mL Normal 0.358-3.740 [facility] Comment on above: Performed By: #### L IPID, TSH, CMP #### [facility] [address] [place] [address] Dr. Sheldon Cordero Lactic Acidon 11-02-2018 Lactate [Mass/Vol] 7.5 mg/dL Normal 4.5-19.8 [facility] Comment on above: Performed By: #### 2 [id number] #### [facility] [address] [place] [address] CNOVon 06-11-2018 CNOV Office Visit (RADTSA ) JOSS WASHINGTON ([id number]) 1950 F Date Time Provider Department 06/11/18 [...] M.D., KAY ? cc: Lawrence Rai MD [address] [place] [id number] ? Katherine Downs MD [facility] [place] [address] ? Dr. Berman ? This note was dictated with Jazmin Naturally Speaking and may contain some grammatical errors due to limitations of the software. Dexter De León RN, was present in the examination room throughout the encounter. 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 Author Type: [...] M.D., KAY ? cc: Lawrence Rai MD [address] [place] [id number] ? Katherine Downs MD [facility] [address] [place] [address] ? Dr. Berman ? This note was dictated with Dragon Naturally Speaking and may contain some grammatical errors due to limitations of the software. Dexter De León RN, was present in the examination room throughout the encounter. Normal [facility] CNOVon 02-12-2018 CNOV Office Visit (RADTSA ) JOSS WASHINGTON ([id number]) 1950 F Date Time Provider Department 02/12/18 [...] examination. ? Signed by: Farheen Cronin M.D., [facility] ? cc: Lawrence Rai MD [address] [place] [phone] ? Katherine Downs MD [facility] [address] [place] [address] ? Dr. Berman ? This note was dictated with Jazmin Naturally Speaking and may contain some grammatical errors due to limitations of the software. Dexter De León RN, was present in the examination room throughout the encounter. Referring Provider: LAWRENCE RAI [[id number]] Allergies As of Date: 02/12/2018 (No Known [...] by FARHEEN CRONIN MD on 02/12/18 Normal [facility] PROGRESSon 02-12-2018 Protein mass conc HNO ID: [id number] Author: Farheen Cronin Service: (none) Author Type: [...] M.D., FACRO ? cc: Lawrence Rai MD [address] [place] [phone] ? Katherine Downs MD [facility] [address] [place] [address] ? Dr. Berman ? This note was dictated with Radhaon Naturally Speaking and may contain some grammatical errors due to limitations of the software. Dexter De León RN, was present in the examination room throughout the encounter. Normal [facility] PROGRESSon 12-10-2017 Protein mass conc HNO ID: [id number] Author: Lisa Willams Service: (none) Author Type: [...] Dr. Downs at this time. Lisa Willams APRN.SALON MANAGER Normal [facility] CNOVon 12-04-2017 CNOV Office Visit (RADTSA ) JOSS WASHINGTON ([id number]) 1950 F Date Time Provider Department 12/04/17 [...] M.D., FACRO ? cc: Lawrence Rai MD [address] [place] [phone] ? Katherine Downs MD [facility] [address] [place] [address] ? Dr. Berman ? This note was dictated with Jazmin Naturally Speaking and may contain some grammatical errors due to limitations of the software. Anatoliy Ha MA was present in the examination room throughout the encounter. Referring Provider: FARHEEN CRONIN [[id number]] Allergies As of Date: 12/04/2017 (No Known [...] Status:Closed by FARHEEN CRONIN MD on 12/04/17 [facility] CNOVSPon 12-04-2017 CNOVSP Visit (SP) Office (HEMASA) JOSS WASHINGTON ([id number]) 1950 F Date Time Provider Department 12/04/17 [...] Dr. Downs at this time. Lisa Willams APRN.SALON MANAGER Referring Provider: FARHEEN CRONIN [[id number]] Allergies As of Date: 12/04/2017 (No Known [...] Status:Closed by LISA WILLAMS CNP on 12/10/17 [facility] PROGRESSon 12-04-2017 Protein mass conc HNO ID: [id number] Author: Farheen Cronin Service: (none) Author Type: [...] M.D., FACRO ? cc: Lawrence Rai MD [facility] [place] [address] ? Katherine Downs MD [facility] [address] [place] [address] ? Dr. Berman ? This note was dictated with Jazmin Naturally Speaking and may contain some grammatical errors due to limitations of the software. Anatoliy Ha MA was present in the examination room throughout the encounter. Normal [facility] CNOVon 10-30-2017 CNOV Office Visit (RADTSA ) JOSS WASHINGTON ([id number]) 1950 F Date Time Provider Department 10/30/17 [...] Cronin M.D., FACRO cc: Lawrence Rai MD [address] [place] [phone] ? Katherine Downs MD [facility] [address] [place] [address] ? Dr. Berman ? This note was dictated with Jazmin Naturally Speaking and may contain some grammatical errors due to limitations of the software. Dexter De León RN was present in the examination room throughout the encounter. Referring Provider: FARHEEN CRONIN [[id number]] Allergies As of Date: 10/30/2017 (No Known [...] by FARHEEN CRONIN MD on 10/30/17 Normal [facility] PROGRESSon 10-30-2017 Protein mass conc HNO ID: [id number] Author: Farheen Cronin Service: (none) Author Type: [...] Cronin M.D., FACRO cc: Lawrence Rai MD [address] [place] [id number] ? Katherine Downs MD [facility] [address] [place] [address] ? Dr. Berman ? This note was dictated with Radhaon Naturally Speaking and may contain some grammatical errors due to limitations of the software. Dexter De León RN was present in the examination room throughout the encounter. Normal [facility] PROGRESSon 10-16-2017 Protein mass conc HNO ID: [id number] Author: Farheen Cronin Service: (none) Author Type: Physician Type: Progress Notes Filed: 10/17/2017 12:34 AM Note Text: [facility] Radiation Oncology Department RADIATION ONCOLOGY - COMPLETION [...] JULIETTE 10/16/20179:57 AM cc: Dr. Lawrence Downs [facility] CNOVon 10-14-2017 CNOV Office Visit (RADTSA ) FELIXJOSS ([id number]) 1950 F Date Time Provider Department 10/14/17 [...] Status:Closed by FARHEEN CRONIN MD on 10/14/17 [facility] PROGRESSon 10-14-2017 Protein mass conc HNO ID: [id number] Author: Farheen Cronin Service: (none) Author Type: [...] as planned. ? Farheen Cronin MD? Normal [facility] CNOVon 10-07-2017 CNOV Office Visit (RADTSA ) JOSS WASHINGTON ([id number]) 1950 F Date Time Provider Department 10/07/17 [...] by FARHEEN CRONIN MD on 10/07/17 Normal [facility] PROGRESSon 10-07-2017 Protein mass conc HNO ID: [id number] Author: Farheen Cronin Service: (none) Author Type: [...] as planned. ? Farheen Cronin MD? Normal [facility] CNOVon 09-30-2017 CNOV Office Visit (RADTSA ) JOSS WASHINGTON ([id number]) 1950 F Date Time Provider Department 09/30/17 [...] by FARHEEN CRONIN MD on 09/30/17 Normal [facility] PROGRESSon 09-30-2017 Protein mass conc HNO ID: [id number] Author: Farheen Cronin Service: (none) Author Type: [...] as planned. ? Farheen Cronin MD? Normal [facility] CNOVon 09-22-2017 CNOV Office Visit (RADTSA ) JOSS WASHINGTON ([id number]) 1950 F Date Time Provider Department 09/22/17 [...] right breast*INVALID FOR* Visit Notes: >> Anatoliy (Hydrometeorological Technician) CLARA Ha FriSep 22, 2017 10:22 AM Status: Signed Status: Post-menopausal. Encounter Status:Closed by FARHEEN CRONIN MD on 09/22/17 Normal [facility] PROGRESSon 09-22-2017 Protein mass conc HNO ID: [id number] Author: Farheen Cronin Service: (none) Author Type: [...] as planned. ? Farheen Cronin MD Normal [facility] CBC and Differentialon 09-18 Abs Baso 0.03 k/uL Normal 0.00-0.10 [facility] Abs Glades 0.45 k/uL Normal 0.00-0.86 [facility] Abs Neut 5.16 k/uL Normal 1.45-7.50 [facility] Basophils/100 WBC (Bld) 0.4 % Normal [facility] Eosinophils #/vol (Bld) 0.23 10*3/uL Normal 0.00-0.45 [facility] Eosinophils/100 WBC (Bld) 3.2 % Normal [facility] Erythrocyte distribution width Ratio (RBC) 15.0 % Normal 11.5-15.0 [facility] Hematocrit Volume Fraction (Bld) 39.1 % Normal 36.0-46.0 [facility] Hemoglobin mass conc (Bld) 13.0 g/dL Normal 11.5-15.5 [facility] Lymphocytes #/vol (Bld) 1.40 10*3/uL Normal 1.00-4.00 [facility] Lymphocytes/100 WBC (Bld) 19.3 % Normal [facility] MCH Entitic mass (RBC) 30.6 pG Normal 26.0-34.0 [facility] MCHC mass conc (RBC) 33.2 g/dL Normal 30.5-36.0 [facility] MCV Entitic volume (RBC) 92.0 fL Normal 80.0-100.0 [facility] Monocytes/100 WBC (Bld) 6.2 % Normal [facility] Neutrophils/100 WBC (Bld) 70.9 % Normal [facility] Platelet mean volume Entitic volume (Bld) 9.5 fL Normal 9.0-12.7 [facility] Platelets #/vol (Bld) 272 10*3/uL Normal 150-400 [facility] RBC #/vol (Bld) 4.25 10*6/uL Normal 3.90-5.20 [facility] WBC #/vol (Bld) 7.27 10*3/uL Normal 3.70-11.00 [facility] CNOVon 09-18-2017 CNOV Office Visit (RADTSA ) FELIXJOSS ([id number]) 1950 F Date Time Provider Department 09/18/17 [...] De León RN Referring Provider: FARHEEN CRONIN [[id number]] Allergies As of Date: 09/18/2017 (No Known [...] Visit Notes: >> Dexter De León RN [facility] Sep 18, 2017 10:01 AM Status: Signed [...] by DEXTER DE LEÓN on 09/18/17 Normal [facility] CNOVon 09-16-2017 CNOV Office Visit (RADTSA ) JOSS WASHINGTON ([id number]) 1950 F Date Time Provider Department 09/16/17 [...] Status:Closed by FARHEEN CRONIN MD on 09/16/17 [facility] PROGRESSon 09-16-2017 Protein mass conc HNO ID: [id number] Author: Farheen Cronin Service: (none) Author Type: [...] treatment as planned. ? Farheen Cronin MD [facility] PROGRESSon 09-09-2017 Protein mass conc HNO ID: [id number] Author: Jem Santana Service: (none) Author Type: [...] requiring intervention. Signed by: Jem Santana MD [facility] CNOVon 09-08-2017 CNOV Office Visit (RADTSA ) JOSS WASHINGTON ([id number]) 1950 F Date Time Provider Department 6/11/18 [...] by JEM SANTANA MD on 09/18/17 Normal [facility] CBC and Differentialon 09-04 Abs Baso 0.03 k/uL Normal <0.11 [facility] Comment on above: Performed By: #### C BCDIF ####[place] [address] [place], [place] [phone] Abs Glades 0.45 k/uL Normal <0.87 [facility] Comment on above: Performed By: #### C BCDIF ####[facility] [place], [place] [phone] Abs Neut 3.74 k/uL Normal 1.45-7.50 [facility] Comment on above: Performed By: #### C BCDIF ####[facility] [place], [place] [phone] Basophils/100 WBC (Bld) 0.5 % Normal [facility] Comment on above: Performed By: #### C BCDIF ####[facility] [place] [address] [phone] Comment AGC=3.68 Normal [facility] Comment on above: Result Comment: Prel iminary result. Interpret with caution. Final results may vary. Results requested and read back by: /09/04/1710/15/1026/OSITO CASTELLON Performed By: #### C BCDIF ####[place] [address] [address] [place], [place] [phone] Eosinophils #/vol (Bld) 0.23 10*3/uL Normal <0.46 [facility] Comment on above: Performed By: #### C BCDIF ####[place] [address] [address] [place] [phone] Eosinophils/100 WBC (Bld) 3.7 % Normal [facility] Comment on above: Performed By: #### C BCDIF ####[place] [address] [place] [place] [phone] Erythrocyte distribution width Ratio (RBC) 15.5 % High 11.5-15.0 [facility] Comment on above: Performed By: #### C BCDIF ####[place] [address] [address] [place] [phone] Hematocrit Volume Fraction (Bld) 37.1 % Normal 36.0-46.0 [facility] Comment on above: Performed By: #### C BCDIF ####[place] [address] [address] [place] [phone] Hemoglobin mass conc (Bld) 12.2 g/dL Normal 11.5-15.5 [facility] Comment on above: Performed By: #### C BCDIF ####[place] [address] [address] [place] [phone] Lymphocytes #/vol (Bld) 1.78 10*3/uL Normal 1.00-4.00 [facility] Comment on above: Performed By: #### C BCDIF ####[place] [address] [address] [place] [phone] Lymphocytes/100 WBC (Bld) 28.6 % Normal [facility] Comment on above: Performed By: #### C BCDIF ####[place] [address] [address] [place] [phone] MCH Entitic mass (RBC) 30.3 pG Normal 26.0-34.0 [facility] Comment on above: Performed By: #### C BCDIF ####[place] [address] [address], [place] [phone] MCHC mass conc (RBC) 32.9 g/dL Normal 30.5-36.0 [facility] Comment on above: Performed By: #### C BCDIF ####[place] [address] [address], [place] [phone] MCV Entitic volume (RBC) 92.1 fL Normal 80.0-100.0 [facility] Comment on above: Performed By: #### C BCDIF ####[place] [address] [address] [place] [phone] Monocytes/100 WBC (Bld) 7.2 % Normal [facility] Comment on above: Performed By: #### C BCDIF ####[place] [address] [address] [phone] Neutrophils/100 WBC (Bld) 60.0 % Normal [facility] Comment on above: Performed By: #### C BCDIF ####[place] [address] [address], [place] [phone] Platelet mean volume Entitic volume (Bld) 9.3 fL Normal 9.0-12.7 [facility] Comment on above: Performed By: #### C BCDIF ####[place] [address] [address], [place] [phone] Platelets #/vol (Bld) 285 10*3/uL Normal 150-400 [facility] Comment on above: Performed By: #### C BCDIF ####[place] [address] [address], [place] [phone] RBC #/vol (Bld) 4.03 10*6/uL Normal 3.90-5.20 [facility] Comment on above: Performed By: #### C BCDIF ####[place] [address] [place], [place] [phone] WBC #/vol (Bld) 6.19 10*3/uL Normal 3.70-11.00 [facility] Comment on above: Performed By: #### C BCDIF ####[facility] [place], [place] [phone] CNOVon 09-04-2017 CNOV Office Visit (RADTSA ) JOSS WASHINGTON ([id number]) 1950 F Date Time Provider Department 09/04/17 [...] De León RN Referring Provider: FARHEEN CRONIN [[id number]] Allergies As of Date: 09/04/2017 (No Known [...] Notes: >> Dexter (Clara) CLARA De León [facility] Sep 04, 2017 12:44 PM Status: Signed [...] Status:Closed by DEXTER DE LEÓN on 09/04/17 [facility] CNOVon 09-02-2017 CNOV Office Visit (RADTSA ) FELIXJOSS ([id number]) 1950 F Date Time Provider Department 09/02/17 [...] right breast*INVALID FOR* Visit Notes: >> Anatoliy (Hydrometeorological Technician) CLARA Ha loni Sep 02, 2017 10:09 AM Status: Signed Status: Post-menopausal. Encounter Status:Closed by FARHEEN CRONIN MD on 09/02/17 [facility] PROGRESSon 09-02-2017 Protein mass conc HNO ID: [id number] Author: Farheen Cronin Service: (none) Author Type: [...] radiation treatment as planned. Farheen Cronin MD [facility] CNOVon 08-27-2017 CNOV Office Visit (RADTSA ) JOSS WASHINGTON ([id number]) 1950 F Date Time Provider Department 08/27/17 [...] Jem Santana MD Referring Provider: JEM SANTANA [[id number]] Allergies As of Date: 08/27/2017 (No Known [...] Status:Closed by JEM SANTANA MD on 09/12/17 [facility] PROGRESSon 08-27-2017 Protein mass conc HNO ID: [id number] Author: Jem Santana Service: (none) Author Type: [...] [facility] CT NON-RADIOLOGY -NBNRo n 08-20-[address] [facility] [address] NON-RADIOLOGY -NBNR [facility] - CT Images - Obtained Outside of Imaging [place] [id number] [facility] CNCNPATEDon 08-20-2017 CNCNPATED Education (RADTSA) JOSS WASHINGTON ([id number]) 1950 F Date Time Provider Department 08/20/17 ANATOLIY HA) RADTSA Reason for Visit: Patient Education [91] Visit Notes: >> Anatoliy Ha RN FriAugust 20, 2017 3:46 PM Status: Signed Radiation Therapy - Patient Education Note PATIENT NAME: Joss Washington PATIENT August 20, 2017 [facility] FACILITY/LOCATION: [facility] READINESS TO LEARN Cognitive Ability: Alert [...] need for social work, van service, and homeland security program specialist. Was approved? No Signed by: Anatoliy Ha [...] Encounter Status:Closed by ANATOLIY HA on 08/20/17 [facility] CNOVon 08-20-2017 CNOV Office Visit (CARLOSTSA ) JOSS WASHINGTON ([id number]) 1950 F Date Time Provider Department 08/20/17 [...] her . 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 COMPLETE REVIEW [...] Farheen Cronin MD cc: [place] [address] [place] [address] Katherine Downs MD [facility] [address] [place] [address] Dr. Berman This note was dictated with Dragon Naturally Speaking and may contain some grammatical errors due to limitations of the software. Referring Provider: KATHERINE DOWNS [[id number]] Allergies As of Date: 08/20/2017 (No Known [...] by FARHEEN CRONIN MD on 08/20/17 Normal [facility] PROGRESSon 08-20-2017 Protein mass conc HNO ID: [id number] Author: Farheen Cronin Service: (none) Author Type: [...] her . 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 COMPLETE REVIEW [...] Farheen Cronin MD cc: Lawrence Rai MD [address] [place] [address] Katherine Downs MD [facility] [address] [place] [address] Dr. Berman This note was dictated with Dragon Naturally Speaking and may contain some grammatical errors due to limitations of the software. Normal [facility] Protein mass conc HNO ID: [id number] Author: Farheen Cronin Service: (none) Author Type: Physician Type: Progress Notes Filed: 08/21/2017 12:34 AM Note Text: FELIX, JOSS [id number] 08/20/2017 [facility] Radiation Oncology Department SIMULATION NOTE DATE OF SIMULATION: 08/20/2017 THERAPIST: Yuliana Gill MACHINE: [employer] 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 / NRS 08/20/20173:59 PM [facility] Protein mass conc HNO ID: [id number] Author: Farheen Cronin Service: (none) Author Type: Physician Type: Progress Notes Filed: 08/27/2017 12:34 AM Note Text: JOSS WASHINGTON [id number] 08/20/2017 [facility] Department of Radiation Oncology Treatment Planning Note [...] Electronically Signed Farheen Cronin M.D. 08/26/20171:02 PM [facility] CNOVSPon 08-14-2017 CNOVSP Visit (SP) Office (HEMACL) JOSS WASHINGTON ([id number]) 1950 F Date Time Provider Department 08/14/17 [...] Katherine Downs MD Referring Provider: GEREMIAS BERMAN [[id number]] Allergies As of Date: 08/14/2017 (No Known Allergies) Date Reviewed: 08/14/2017 Reviewed by: Iesha Luis - Fully Assessed Primary Visit Diagnosis:Ductal carcinoma in situ (DCIS) of right breast [D05.11] Order(s):RAD/ONC CONSULT [9037] Order #: [id number]: 1 Prescriptions as of 08/14/2017 Sig: VENTOLIN [...] by KATHERINE DOWNS MD on 08/14/17 Normal [facility] PROGRESSon 08-14-2017 Protein mass conc HNO ID: [id number] Author: Katherine Downs Service: (none) Author Type: [...] - RAD/ONC CONSULT Katherine Downs MD Normal [facility] US-US GUIDE LOCAL BREAST RT IMPORTon 07-04-2017 US-US GUIDE LOCAL BREAST RT IMPORT Images were obtained outside of [facility] [id number] Normal [facility] MAMM OUTSIDE DICOM IMPORT -N BNRon 06-18-2017 MAMM OUTSIDE DICOM IMPORT -NBNR Images were obtained outside of [facility] [id number] Normal [facility] Encounters Encounter Date Encounter Type Care Provider Facility Start: 08-06-2024 End: 08-06-2024 ambulatory [facility] Start: 05-07-2024 End: 05-07-2024 ambulatory [facility] Start: 03-16-2022 End: 03-17-[address] LAWRENCE RAI Facility:[facility] Start: 02-28-[address] LAWRENCE RAI Facility :[facility] Start: 02-08-2022 End: 02-09-[address] LAWRENCE RAI Facility:[facility] Start: 11-30-2021 End: 12-01-[address] LAWRENCE RAI Facility:[facility] Start: 06-11-2018 End: 06-15-2018 Patient encounter procedure FARHEEN CRONIN [facility] Start: 02-12-2018 End: 02-13-2018 Patient encounter procedure FARHEEN CRONIN [facility] Start: 12-04-2017 End: 12-11-2017 Patient encounter procedure LISA WILLAMS [facility] Start: 10-30-2017 End: 10-30-2017 Patient encounter procedure FARHEEN CRONIN [facility] Start: 10-15-2017 End: 10-20-2017 Patient encounter procedure KATHERINE DOWNS [facility] Start: 10-14-2017 End: 10-14-2017 Patient encounter procedure FARHEEN CRONIN [facility] Start: 10-13-2017 End: 10-15-2017 Patient encounter procedure KATHERINE DOWNS [facility] Start: 10-09-2017 End: 10-30-2017 Patient encounter procedure KATHERINE DOWNS [facility] Start: 10-08-2017 End: 10-10-2017 Patient encounter procedure KATHERINE DOWNS [facility] Start: 10-07-2017 End: 10-07-2017 Patient encounter procedure FARHEEN CRONIN [facility] Start: 10-06-2017 End: 10-10-2017 Patient encounter procedure KATHERINE DOWNS [facility] Start: 10-03-2017 End: 10-08-2017 Patient encounter procedure KATHERINE DOWNS [facility] Start: 10-02-2017 End: 10-20-2017 Patient encounter procedure KATHERINE DOWNS [facility] Start: 09-30-2017 End: 09-30-2017 Patient encounter procedure ZULEMAAdrián Celeste CRONIN [facility] Start: 09-29-2017 End: 10-06-2017 Patient encounter procedure KATHERINE DOWNS [facility] Start: 09-26-2017 End: 10-02-2017 Patient encounter procedure KATHERINE DOWNS [facility] Start: 09-25-2017 End: 09-29-2017 Patient encounter procedure KATHERINE DOWNS [facility] Start: 09-24-2017 End: 10-06-2017 Patient encounter procedure KATHERINE DOWNS [facility] Start: 09-23-2017 End: 09-29-2017 Patient encounter procedure KATHERINE DOWNS [facility] Start: 09-22-2017 End: 09-22-2017 Patient encounter procedure FARHEEN CRONIN [facility] Start: 09-19-2017 End: 09-22-2017 Patient encounter procedure KATHERINE DOWNS [facility] Start: 09-18-2017 End: 09-18-2017 Patient encounter procedure FARHEEN CRONIN [facility] Start: 09-17-2017 End: 09-30-2017 Patient encounter procedure KATHERINE DOWNS [facility] Start: 09-16-2017 End: 09-16-2017 Patient encounter procedure FARHEEN CRONIN [facility] Start: 09-15-2017 End: 09-17-2017 Patient encounter procedure KATHERINE DOWNS [facility] Start: 09-12-2017 End: 09-17-2017 Patient encounter procedure KATHERINE DOWNS [facility] Start: 09-11-2017 End: 09-15-2017 Patient encounter procedure KATHERINE DOWNS [facility] Start: 09-10-2017 End: 09-22-2017 Patient encounter procedure KATHERINE DOWNS [facility] Start: 09-09-2017 End: 09-15-2017 Patient encounter procedure KATHERINE DOWNS [facility] Start: 09-08-2017 End: 09-08-2017 Patient encounter procedure JEM SANTANA [facility] Start: 09-05-2017 End: 09-15-2017 Patient encounter procedure KATHERINE DOWNS [facility] Start: 09-04-2017 End: 09-04-2017 Patient encounter procedure FARHEEN CRONIN [facility] Start: 09-03-2017 End: 09-15-2017 Patient encounter procedure KATHERINE DOWNS [facility] Start: 09-02-2017 End: 09-02-2017 Patient encounter procedure FARHEEN CRONIN [facility] Start: 09-01-2017 End: 09-04-2017 Patient encounter procedure KATHERINE DOWNS [facility] Start: 08-29-2017 End: 09-01-2017 Patient encounter procedure KATHERINE DOWNS [facility] Start: 08-28-2017 End: 09-01-2017 Patient encounter procedure KATHERINE DOWNS [facility] Start: 08-27-2017 End: 08-27-2017 Patient encounter procedure JEM SANTANA [facility] Start: 08-20-2017 End: 08-21-2017 Patient encounter procedure FARHEEN Alonso CRONIN [facility] Start: 08-14-2017 End: 08-15-2017 Patient encounter procedure KATHERINE Oliva JAIMIEROSIE [facility] Payers Date Payer Category Payer Unknown [id number] 1958 Medicare [id number] 1958 Self-pay [id number] 1958 Unknown [id number] 1950 Unknown [id number] 2.16.84 [id number] 1950 Unknown [id number] 2.16.84 [id number] 1950 Unknown [id number] 2.16.84 [id number] 1950 Unknown [id number] 2.16.84 [id number] Progress note 08-06-2024 Note Date & Type Note Facility 08-06-2024 Note [facility] Note Reason for cardiology [...] and right breast cancer Patient presented to [facility] on 03/18/2024 with vision changes which [...] monitor 03/19/2024 Review (more content not included)... [facility] Progress note 05-07-2024 Note Date & Type Note Facility 05-07-2024 Note [facility] Note Reason for cardiology consult: TIA Chief Complaint: dyspnea on exertion HPI: Joss Washington is a 73 y.o. female with history of hypertension, hyperlipidemia, recent TIA, and right breast cancer Patient presented to [facility] on 03/18/2024 with vision changes which [...] has no past medical history of Stroke ([facility] Surgical History She has a past [...] TIA, no ische (more content not included)... [facility] Summary Purpose Family History No Family History Records FoundNo Family History Records FoundNo Family History Records FoundNo Family History Records Found Advance Directives No Advanced Directives Records FoundNo Advanced Directives Records FoundNo Advanced Directives Records FoundNo Advanced Directives Records Found Additional Source Comments INFORMATION SOURCE (unrecogn ized section and content) DATE CREATED AUTHOR 06/15/2018 [facility] [place] DATE CREATED AUTHOR AUTHOR'S ORGANIZ ATION [facility] DATE CREATED AUTHOR AUTHOR'S ORGANIZ ATION 03/22/2022 Roc Renetta [facility] DATE CREATED AUTHOR AUTHOR'S ORGANIZ ATION 08/08/2024 [facility] FOR RECORDS PERTAINING TO PATIENTS WHO [...] BE BASED ON THE PRIMARY CLINICAL RECORDS. [facility] [employer] [facility] provides no warranty or guarantee of the accuracy or completeness of information in this document.
[2024-08-31 08:30] LABS: Anion Gap 11.5; BUN Creatinine Ratio 28.4; Calcium 9.4 mg/dL (8.5-10.1); Carbon Dioxide 29.9 mmol/L (21.0-32.0); Chloride 106 mmol/L (98-107); Estimated GFR (African America 60 (>=60 mL/min/1.73m^2); Estimated GFR (Non-African Ame 49 (>=60 mL/min/1.73m^2); Glucose 102 mg/dL (74-106); Potassium 5.4 mmol/L (3.5-5.1); Sodium 142 mmol/L (136-145); Thyroid Stimulating Hormone 3.549 uIU/mL (0.358-3.740)
== END 2024-08-31 07:06 | disposition home or self-care (01) ==
LOC: LAB 07:06
PROVIDERS: PCP Family Medicine; Visit Provider Family Medicine
DX: N17.9 Acute kidney failure, unspecified (principal); E03.9 Hypothyroidism, unspecified
CPT/HCPCS: 80048; 84436; 84443; 84481

== ENCOUNTER 2024-09-15 20:40 | Outpatient (OUT) | payer MEDICARE, OTHER, SELFPAY ==
--- OUTSIDE RECORDS SUMMARY | 2024-09-15 20:43 | XMS_ITS | CCD ---
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 Ask her if her blood pressure is better after adding Aldactone/spironolacto ne Advised patient of Dr. Yin's findings. Patient states her blood pressure is doing great and she feels much better. Normal [facility] Office Visiton 08-06-2024 Follow-up visit [id number] Joss Washington 1950 Date Provider Department Center 08/06/2024 [id number] MACIAS Family History Problem Relation Age of Onset Hypertension Mother Stroke Mother Hyperlipidemia Mother Hypertension Father Coronary artery disease Father Hyperlipidemia Father Cancer Father Family Status - Relation Status Age at Mother Father Level of Service:15304 [place] OFFICE/OUTPATIENT ESTABLISHED MOD MDM 30 MIN Reason for Visit and Comments: Hyperlipidemia [182] - Had lipid in May 2024. Hypertension [254404] - She brought BP log with her. Shortness of Breath [151663] - She attributes her MORENO to her weight. Says it's hard for her to walk a lot due to knee pain. Palpitations [145350] - Hasn't had palpitations recently. Transient Ischemic Attack [811891] - Had bubble study in May 2024. She wants to know if she can stop Plavix due to TIA being ruled out. Normal [facility] Office Visiton 05-07-2024 Follow-up visit [id number] Joss Washington 1950 Date Provider Department Center 05/07/2024 JOHN BIGGS Family History Problem Relation Age of Onset Hypertension Mother Stroke Mother Hyperlipidemia Mother Hypertension Father Coronary artery disease Father Hyperlipidemia Father Cancer Father Family Status - Relation Status Age at Mother Father Level of Service:31200 [place] OFFICE/OUTPATIENT NEW MODERATE MDM 45 MINUTES Reason for Visit and Comments: Chest Pain [603896] - Patient describes it as chest discomfort . Says she was told 40+ years ago that she had mitral valve prolapse. Echo was done with recent admission. Hypertension [447288] - She was admitted to [facility] in Feb 2024 for TIA and hypertension. Hyperlipidemia [182] Shortness of Breath [] - C/o MORENO. Palpitations [] - She wore 7 day Holter after hospital admission. She is currently wearing a 30 day event monitor. Normal [facility] XR SHOULDER LT 2V or >on [...] by: LIBIA GIBBS Date: 2022-03-17 13:31 Normal [facility] MG MAMM ABHAY DIAG W CADon MG MAMM ABHAY DIAG W CAD Patient: JOSS WASHINGTON Exam Date: 02/08/2022 : 1950 Gender:F Ordering : DR LAWRENCE RAI . Admission #: [id number] Family : Order #: [id number] CLICK HERE TO VIEW EXAM RADIOLOGY REPORT [...] brain cancer at age 69. LOCATION: [facility] BREAST COMPOSITION: Scattered areas fibroglandular density. [...] M.D. on 02/08/2022 at 08:46 Normal [facility] T4, T3U, FTI LABCORPon 12-01 Free Thyroxine Index 1.7 Normal 1.2-4.9 [facility] Comment on above: Performed By: #### T HYLC #### [facility] [address] [place] [address] Dr. Sheldon Cordero T3 Uptake 27 % Normal 24-39 [facility] Comment on above: Performed By: #### T HYLC #### [facility] [address] [address] [address] Sheldon Cordero T4 [Mass/Vol] 6.4 ug/dL Normal 4.5-12.0 [facility] Comment on above: Performed By: #### T HYLC #### [facility] [address] [address] [address] Sheldon Cordero CBC AUTO DIFFon 11-30-2021 BASO # 0.1 103/ul Normal 0.0-0.1 [facility] Comment on above: Performed By: #### C BC #### [facility] [address] [place] [address] Dr. Sheldon Cordero Basophils/100 WBC (Bld) 0.8 % Normal 0.2-2.0 [facility] Comment on above: Performed By: #### C BC #### [facility] [address] [address] [address] Sheldon Cordero EO # 0.3 103/ul Normal 0.0-0.7 [facility] Comment on above: Performed By: #### C BC #### [facility] [address] [place] [address] Dr. Sheldon Cordero Eosinophils/100 WBC (Bld) 3.8 % Normal 0.9-7.0 [facility] Comment on above: Performed By: #### C BC #### [facility] [address] [place] [address] Dr. Sheldon Cordero Erythrocyte distribution width (RBC) [Ratio] 14.6 % Normal 11.0-15.0 [facility] Comment on above: Performed By: #### C BC #### [facility] [address] [place] [address] Dr. Sheldon Cordero Hematocrit (Bld) [Volume fraction] 39.3 % Normal 36.0-48.0 [facility] Comment on above: Performed By: #### C BC #### [facility] [address] [place] [address] Dr. Sheldon Cordero Hemoglobin (Bld) [Mass/Vol] 12.4 g/dL Normal 12.0-16.0 [facility] Comment on above: Performed By: #### C BC #### [facility] [address] [place] [address] Dr. Sheldon Cordero IG # 0.08 10e3/ul Critically high 0.00-0.03 [facility] Comment on above: Performed By: #### C BC #### [facility] [address] [place] [address] Dr. Sheldon Cordero IG % 1.1 % Critically high 0.0-0.5 [facility] Comment on above: Performed By: #### C BC #### [facility] [address] [place] [address] Dr. Sheldon Cordero LYMPH # 1.8 103/ul Normal 1.2-3.8 [facility] Comment on above: Performed By: #### C BC #### [facility] [address] [place] [address] Dr. Sheldon Cordero Lymphocytes/100 WBC (Bld) 25.1 % Normal 20.5-60.0 [facility] Comment on above: Performed By: #### C BC #### [facility] [address] [place] [address] Dr. Sheldon Cordero MANUAL DIFF REQ NO Normal [facility] Comment on above: Performed By: #### C BC #### [facility] [address] [place] [address] Dr. Sheldon Cordero MCH (RBC) [Entitic mass] 29.6 pg Normal 26.7-34.0 [facility] Comment on above: Performed By: #### C BC #### [facility] [address] [place] [address] Dr. Sheldon Cordero MCHC (RBC) [Mass/Vol] 31.6 g/dL Normal 29.9-35.2 [facility] Comment on above: Performed By: #### C BC #### [facility] [address] [place] [address] Dr. Sheldon Cordero MCV (RBC) [Entitic vol] 93.8 fL Normal 81.0-99.0 [facility] Comment on above: Performed By: #### C BC #### [facility] [address] [place] [address] Dr. Sheldon Cordero MONO # 0.4 103/ul Normal 0.3-0.8 [facility] Comment on above: Performed By: #### C BC #### [facility] [address] [place] [address] Dr. Sheldon Cordero Monocytes/100 WBC (Bld) 5.8 % Normal 1.7-12.0 [facility] Comment on above: Performed By: #### C BC #### [facility] [address] [place] [address] Dr. Sheldon Cordero NEUT # 4.6 103/ul Normal 1.4-6.5 [facility] Comment on above: Performed By: #### C BC #### [facility] [address] [place] [address] Dr. Sheldon Cordero Neutrophils/100 WBC (Bld) 63.4 % Normal 43.0-75.0 [facility] Comment on above: Performed By: #### C BC #### [facility] [address] [place] [address] Dr. Sheldon Cordero Platelet mean volume (Bld) [Entitic vol] 8.9 fL Critically low 9.5-13.5 [facility] Comment on above: Performed By: #### C BC #### [facility] [address] [address] [address] Sheldon Cordero PLT 277 103/ul Normal 150-450 [facility] Comment on above: Performed By: #### C BC #### [facility] [address] [place] [address] Dr. Sheldon Cordero RBC 4.19 106/ul Critically low 4.20-5.40 [facility] Comment on above: Performed By: #### C BC #### [facility] [address] [place] [address] Dr. Sheldon Cordero WBC 7.2 103/ul Normal 4.0-11.0 [facility] Comment on above: Performed By: #### C BC #### [facility] [address] [place] [address] Dr. Sheldon Cordero GLYCOHEMOGLOBIN A1Con 2021 ADA RECOMMENDATION SEE BELOW Normal [facility] Comment on above: Result Comment: ADA RECOMMENDED LIMIT 4.0 - 6.0 ADA THERAPEUTIC TARGET < 7.0 ACTION SUGGESTED > 7.0 Performed By: #### A 1C #### [facility] [address] [place] [address] Dr. Sheldon Cordero Glucose [Mass/Vol] 128 mg/dL Normal [facility] Comment on above: Performed By: #### A 1C #### [facility] [address] [place] [address] Dr. Sheldon Cordero HbA1c (Bld) [Mass fraction] 6.1 % Normal 4.5-6.2 [facility] Comment on above: Performed By: #### A 1C #### [facility] [address] [place] [address] Dr. Sheldon Cordero IRONon 11-30-2021 Iron [Mass/Vol] 58.0 ug/dL Normal 50.0-170.0 [facility] Comment on above: Performed By: #### I GERMAN #### [facility] [address] [place] [address] Dr. Sheldon Cordero LIPID PROFILEon 11-30-2021 CHOL-HDL RATIO NORM SEE BELOW Normal [facility] Comment on above: Result Comment: 3.3 - 4.4 LOW RISK 4.4 - 7.1 AVERAGE RISK 7.1 - 11.0 MODERATE RISK >11.0 HIGH RISK Performed By: #### L IPID, TSH, CMP #### [facility] [address] [place] [address] Dr. Sheldon Cordero Cholesterol [Mass/Vol] 251 mg/dL Critically high <=200 [facility] Comment on above: Performed By: #### L IPID, TSH, CMP #### [facility] [address] [place] [address] Dr. Sheldon Cordero Cholesterol in HDL [Mass/Vol] 70 mg/dL Critically high 40-60 [facility] Comment on above: Performed By: #### L IPID, TSH, CMP #### [facility] [address] [place] [address] Dr. Sheldon Cordero Cholesterol in LDL [Mass/Vol] 161.4 mg/dL Normal [facility] Comment on above: Performed By: #### L IPID, TSH, CMP #### [facility] [address] [place] [address] Dr. Sheldon Cordero Cholesterol.total/Ch olesterol in HDL [Mass ratio] 3.6 {ratio} Normal [facility] Comment on above: Performed By: #### L IPID, TSH, CMP #### [facility] [address] [place] [address] Dr. Sheldon Cordero HDL NORMAL > or = 60 mg/dl - LO W CARDIOVASCULAR RISK <40 mg/dl - HIGH CARDIOVASCULAR RISK Normal [facility] Comment on above: Performed By: #### L IPID, TSH, CMP #### [facility] [address] [place], [place] [id number] Dr. Sheldon Cordero LDL CALC NORMAL SEE BELOW Normal [facility] Comment on above: Result Comment: <100 mg/dl OPTIMAL 100 - 129 mg/dl NEAR OR ABOVE OPTIMAL 130 - 159 mg/dl BORDERLINE HIGH 160 - 189 mg/dl HIGH >190 mg/dl VERY HIGH Performed By: #### L IPID, TSH, CMP #### [facility] [address] [address] [address] Sheldon Cordero Triglyceride [Mass/Vol] 98 mg/dL Normal <=150 [facility] Comment on above: Performed By: #### L IPID, TSH, CMP #### [facility] [address] [address] [address] Sheldon Cordero VLDL CALC 19.6 mg/dL Normal [facility] Comment on above: Performed By: #### L IPID, TSH, CMP #### [facility] [address] [place] [address] Dr. Sheldon Cordero PROF 14(COMP METB)on 022 Albumin [Mass/Vol] 3.4 g/dL Normal 3.4-5.0 [facility] Comment on above: Performed By: #### L IPID, TSH, CMP #### [facility] [address] [place] [address] Dr. Sheldon Cordero Albumin/Globulin [Mass ratio] 0.9 {ratio} Normal [facility] Comment on above: Performed By: #### L IPID, TSH, CMP #### [facility] [address] [address] [address] Sheldon Cordero ALP [Catalytic activity/Vol] 107 U/L Normal 46-116 [facility] Comment on above: Performed By: #### L IPID, TSH, CMP #### [facility] [address] [place] [address] Dr. Sheldon Cordero ALT [Catalytic activity/Vol] 17 U/L Normal 14-59 [facility] Comment on above: Performed By: #### L IPID, TSH, CMP #### [facility] [address] [place] [address] Dr. Sheldon Cordero Anion gap [Moles/Vol] 10.9 mmol/L Normal [facility] Comment on above: Performed By: #### L IPID, TSH, CMP #### [facility] [address] [address] [address] Sheldon Cordero AST [Catalytic activity/Vol] 11 U/L Critically low 15-37 [facility] Comment on above: Performed By: #### L IPID, TSH, CMP #### [facility] [address] [place] [address] Dr. Sheldon Cordero Bilirubin [Mass/Vol] 0.3 mg/dL Normal 0.2-1.0 [facility] Comment on above: Performed By: #### L IPID, TSH, CMP #### [facility] [address] [place] [address] Dr. Sheldon Cordero Calcium [Mass/Vol] 9.1 mg/dL Normal 8.5-10.1 [facility] Comment on above: Performed By: #### L IPID, TSH, CMP #### [facility] [address] [place] [address] Dr. Sheldon Cordero Chloride [Moles/Vol] 106 mmol/L Normal 98-107 [facility] Comment on above: Performed By: #### L IPID, TSH, CMP #### [facility] [address] [place] [address] Dr. Sheldon Cordero CO2 [Moles/Vol] 30.6 mmol/L Normal 21.0-32.0 [facility] Comment on above: Performed By: #### L IPID, TSH, CMP #### [facility] [address] [place] [address] Dr. Sheldon Cordero Creatinine [Mass/Vol] 0.93 mg/dL Normal 0.55-1.02 [facility] Comment on above: Performed By: #### L IPID, TSH, CMP #### [facility] [address] [place] [address] Dr. Sheldon Cordero EGFR-AF ESTONIAN >60 Normal >=60 [facility] Comment on above: Performed By: #### L IPID, TSH, CMP #### [facility] [address] [address] [address] Sheldon Cordero EGFR-NON AF ESTONIAN =60 Normal >=60 [facility] Comment on above: Performed By: #### L IPID, TSH, CMP #### [facility] [address] [address] [address] Sheldon Cordero Globulin (S) [Mass/Vol] 4.0 g/dL Normal [facility] Comment on above: Performed By: #### L IPID, TSH, CMP #### [facility] [address] [place] [address] Dr. Sheldon Cordero Glucose [Mass/Vol] 101 mg/dL Normal 74-106 [facility] Comment on above: Performed By: #### L IPID, TSH, CMP #### [facility] [address] [place] [address] Dr. Sheldon Cordero Potassium [Moles/Vol] 4.5 mmol/L Normal 3.5-5.1 [facility] Comment on above: Performed By: #### L IPID, TSH, CMP #### [facility] [address] [place] [address] Dr. Sheldon Cordero Protein [Mass/Vol] 7.4 g/dL Normal 6.4-8.2 [facility] Comment on above: Performed By: #### L IPID, TSH, CMP #### [facility] [address] [place] [address] Dr. Sheldon Cordero Sodium [Moles/Vol] 143 mmol/L Normal 136-145 [facility] Comment on above: Performed By: #### L IPID, TSH, CMP #### [facility] [address] [place] [address] Dr. Sheldon Cordero Urea nitrogen [Mass/Vol] 18.0 mg/dL Normal 7.0-18.0 [facility] Comment on above: Performed By: #### L IPID, TSH, CMP #### [facility] [address] [place] [address] Dr. Sheldon Cordero Urea nitrogen/Creatinine [Mass ratio] 19.4 mg/mg Normal [facility] Comment on above: Performed By: #### L IPID, TSH, CMP #### [facility] [address] [place], [place] [address] Dr. Sheldon Cordero TSHon 11-30-2021 TSH 2.774 uIU/mL Normal 0.358-3.740 [facility] Comment on above: Performed By: #### L IPID, TSH, CMP #### [facility] [address] [place], [place] [address] Dr. Sheldon Cordero Lactic Acidon 11-02-2018 Lactate [Mass/Vol] 7.5 mg/dL Normal 4.5-19.8 [facility] Comment on above: Performed By: #### 2 [id number] #### [facility] [address] [place] [address] CNOVon 06-11-2018 CNOV Office Visit (RADTSA ) JOSS WASHINGTON ([id number]) 1950 F Date Time Provider Department 06/11/18 [...] pathologic stage 0 (Tis Nx ?M0), ER-positive, AZ-positive, s/p partial mastectomy ? ? INTERVAL HISTORY: [...] examination. ? Signed by: Farheen Cronin M.D., [facility] ? cc: Lawrence Rai MD [address] [place] [phone] ? Katherine Downs MD [facility] [address] [place] [address] ? Dr. Berman ? This note was dictated with Jazmin Naturally Speaking and may contain some grammatical errors due to limitations of the software. Dexter De León RN, was present in the examination room throughout the encounter. 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 Author Type: Physician Type: Progress Notes Filed: 06/11/2018 2:48 PM Note Text: Radiation Oncology - Follow Up Note PATIENT NAME: Joss Washington PATIENT DIAGNOSIS: ?DCIS of the Right breast, UIQ, pathologic stage 0 (Tis Nx ?M0), ER-positive, AZ-positive, s/p partial mastectomy ? ? INTERVAL HISTORY: [...] M.D., [facility] ? cc: Lawrence Rai MD [address] [place] [phone] ? Katherine Downs MD [facility] [address] [place] [address] ? Dr. Berman ? This note was dictated with Dragon Naturally Speaking and may contain some grammatical errors due to limitations of the software. Dexter De León RN, was present in the examination room throughout the encounter. Normal [facility] CNOVon 02-12-2018 CNOV Office Visit (RADTSA ) JOSS WASHINGTON ([id number]) 1950 F Date Time Provider Department 02/12/18 [...] pathologic stage 0 (Tis Nx ?M0), ER-positive, AZ-positive, s/p partial mastectomy ? ? INTERVAL HISTORY: [...] M.D., [facility] ? cc: Lawrence Rai MD [address] [place] [phone] ? Katherine Downs MD [facility] [address] [place] [address] ? Dr. Berman ? This note was dictated with Jazmin Naturally Speaking and may contain some grammatical errors due to limitations of the software. Dexter De León RN, was present in the examination room throughout the encounter. Referring Provider: LAWRENCE RAI [[id number]] Allergies As of Date: 02/12/2018 (No Known [...] by FARHEEN CRONIN MD on 02/12/18 Normal [facility] PROGRESSon 02-12-2018 Protein mass conc HNO ID: [id number] Author: Farheen Cronin Service: (none) Author Type: Physician Type: Progress Notes Filed: 02/12/2018 10:40 AM Note Text: Radiation Oncology - Follow Up Note PATIENT NAME: Joss Washington PATIENT DIAGNOSIS: ?DCIS of the Right breast, UIQ, pathologic stage 0 (Tis Nx ?M0), ER-positive, AZ-positive, s/p partial mastectomy ? ? INTERVAL HISTORY: [...] M.D., [facility] ? cc: Lawrence Rai MD [address] [place] [address] ? Katherine Downs MD [facility] [address] [place] [address] ? Dr. Berman ? This note was dictated with Dragon Naturally Speaking and may contain some grammatical errors due to limitations of the software. Dexter De León RN, was present in the examination room throughout the encounter. Normal [facility] PROGRESSon 12-10-2017 Protein mass conc HNO ID: [id number] Author: Lisa Willams Service: (none) Author Type: [...] Dr. Downs at this time. Lisa Willams APRN.SMART ENERGY SPECIALIST Normal [facility] CNOVon 12-04-2017 CNOV Office Visit (RADTSA ) JOSS WASHINGTON ([id number]) 1950 F Date Time Provider Department 12/04/17 [...] pathologic stage 0 (Tis Nx ?M0), ER-positive, AZ-positive, s/p partial mastectomy ? ? INTERVAL HISTORY: [...] months for follow-up examination. ? Signed by: Khgil Cronin M.D., [facility] ? cc: Lawrence Rai MD [facility] [place] [address] ? Katherine Downs MD [facility] [address] [place] [address] ? Dr. Berman ? This note was dictated with Dragon Naturally Speaking and may contain some grammatical errors due to limitations of the software. Anatoliy Ha MA was present in the examination room throughout the encounter. Referring Provider: FARHEEN CRONIN [[id number]] Allergies As of Date: 12/04/2017 (No Known Allergies) Date Reviewed: 12/04/2017 Reviewed by: Anatoliy (Hernando) CLARA Ha - Fully Assessed Reason for [...] Status:Closed by FARHEEN CRONIN MD on 12/04/17 [facility] CNOVSPon 12-04-2017 CNOVSP Visit (SP) Office (HEMASA) JOSS WASHINGTON ([id number]) 1950 F Date Time Provider Department 12/04/17 [...] Dr. Downs at this time. Lisa Willams APRN.SMART ENERGY SPECIALIST Referring Provider: FARHEEN CRONIN [[id number]] Allergies As of Date: 12/04/2017 (No Known Allergies) Date Reviewed: 12/04/2017 Reviewed by: Anatoliy Montilla) CLARA Ha - Fully Assessed Reason for [...] by LISA WILLAMS CNP on 12/10/17 Normal [facility] PROGRESSon 12-04-2017 Protein mass conc HNO ID: [id number] Author: Farheen Cronin Service: (none) Author Type: Physician Type: Progress Notes Filed: 12/04/2017 1:55 PM Note Text: Radiation Oncology - Follow Up Note PATIENT NAME: Joss Washington PATIENT DIAGNOSIS: DCIS of the Right breast, UIQ, pathologic stage 0 (Tis Nx ?M0), ER-positive, [place]-positive, s/p partial mastectomy ? ? INTERVAL HISTORY: [...] Signed by: Farheen Cronin M.D., [facility] ? cc: Lawrence Rai MD [address] [place] [phone] ? Katherine Downs MD [facility] [address] [place] [address] ? Dr. Berman ? This note was dictated with Radhaon Naturally Speaking and may contain some grammatical errors due to limitations of the software. Anatoliy Ha MA was present in the examination room throughout the encounter. Normal [facility] CNOVon 10-30-2017 CNOV Office Visit (RADTSA ) JOSS WASHINGTON ([id number]) 1950 F Date Time Provider Department 10/30/17 [...] pathologic stage 0 (Tis Nx M0), ER-positive, AZ-positive, s/p partial mastectomy ? INTERVAL HISTORY: Mrs. [...] Cronin M.D., [facility] cc: Lawrence Rai MD [address] [place] [address] ? Katherine Downs MD [facility] [address] [place] [address] ? Dr. Berman ? This note was dictated with Jazmin Naturally Speaking and may contain some grammatical errors due to limitations of the software. Dexter De León RN was present in the examination room throughout the encounter. Referring Provider: FARHEEN CRONIN [[id number]] Allergies As of Date: 10/30/2017 (No Known [...] Status:Closed by FARHEEN CRONIN MD on 10/30/17 [facility] PROGRESSon 10-30-2017 Protein mass conc HNO ID: [id number] Author: Farheen Cronin Service: (none) Author Type: Physician Type: Progress Notes Filed: 10/30/2017 3:16 PM Note Text: Radiation Oncology - Follow Up Note PATIENT NAME: Joss Washington PATIENT DIAGNOSIS: DCIS of the Right breast, UIQ, pathologic stage 0 (Tis Nx M0), ER-positive, AZ-positive, s/p partial mastectomy ? INTERVAL HISTORY: Mrs. [...] Cronin M.D., [facility] cc: Lawrence Rai MD [address] [place], [place] [phone] ? Katherine Downs MD [facility] [address] [place] [address] [address] Berman ? This note was dictated with Jazmin Naturally Speaking and may contain some grammatical errors due to limitations of the software. Dexter De León RN was present in the examination room throughout the encounter. Normal [facility] PROGRESSon 10-16-2017 Protein mass conc HNO ID: [id number] Author: Farheen Cronin Service: (none) Author Type: Physician Type: Progress Notes Filed: 10/17/2017 12:34 AM Note Text: [facility] Radiation Oncology Department RADIATION ONCOLOGY - COMPLETION NOTE PATIENT: JOSS WASHINGTON : 1950 DATES OF TREATMENT: 08/27/2017 to 10/15/2017 DIAGNOSIS: DCIS of the Right breast, UIQ, pathologic stage 0 (Tis Nx M0), ER-positive, AZ-positive, s/p partial mastectomy AREA TREATED: Right Breast [...] JULIETTE 10/16/20179:57 AM cc: Dr. Lawrence Downs [facility] CNOVon 10-14-2017 CNOV Office Visit (RADTSA ) JOSS WASHINGTON ([id number]) 1950 F Date Time Provider Department 10/14/17 [...] the Right?breast, UIQ,?pathologic?stage 0 (Tis Nx M0),?ER-positive, AZ-positive, s/p?partial mastectomy ? COURSE: definitive AREA TREATED: [...] Visit Notes: >> Dexter De León RN Oct 14, 2017 10:15 AM Status: Signed Status: Post-menopausal. Dexter De León RN Encounter Status:Closed by FARHEEN CRONIN MD on 10/14/17 Normal [facility] PROGRESSon 10-14-2017 Protein mass conc HNO ID: [id number] Author: Farheen Cronin Service: (none) Author Type: Physician Type: Progress Notes Filed: 10/14/2017 2:16 PM Note Text: Radiation Oncology - On Treatment Review (OTR) Note PATIENT NAME: Joss Washington PATIENT DIAGNOSIS: DCIS?of the Right?breast, UIQ,?pathologic?stage 0 (Tis Nx M0),?ER-positive, AZ-positive, s/p?partial mastectomy ? COURSE: definitive AREA TREATED: [...] as planned. ? Farheen Cronin MD? Normal [facility] CNOVon 10-07-2017 CNOV Office Visit (RADTSA ) FELIXJOSS MIX ([id number]) 1950 F Date Time Provider Department 10/07/17 [...] the Right?breast, UIQ,?pathologic?stage 0 (Tis Nx M0),?ER-positive, AZ-positive, s/p?partial mastectomy ? COURSE: definitive AREA TREATED: [...] Allergies) Date Reviewed: 10/07/2017 Reviewed by: Dexter Sykes) CLARA De León - Fully Assessed Primary [...] Status:Closed by FARHEEN CRONIN MD on 10/07/17 [facility] PROGRESSon 10-07-2017 Protein mass conc HNO ID: [id number] Author: Farheen Cronin Service: (none) Author Type: Physician Type: Progress Notes Filed: 10/07/2017 11:21 AM Note Text: Radiation Oncology - On Treatment Review (OTR) Note PATIENT NAME: Joss Washington PATIENT DIAGNOSIS: DCIS?of the Right?breast, UIQ,?pathologic?stage 0 (Tis Nx M0),?ER-positive, AZ-positive, s/p?partial mastectomy ? COURSE: definitive AREA TREATED: [...] as planned. ? Farheen Cronin MD? Normal [facility] CNOVon 09-30-2017 CNOV Office Visit (RADTSA ) JOSS WASHINGTON ([id number]) 1950 F Date Time Provider Department 09/30/17 [...] the Right?breast, UIQ,?pathologic?stage 0 (Tis Nx M0),?ER-positive, AZ-positive, s/p?partial mastectomy ? 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 COURSE: definitive AREA TREATED: [...] as planned. ? Farheen Cronin MD? Normal [facility] CNOVon 09-22-2017 CNOV Office Visit (RADTSA ) FELIXJOSS ([id number]) 1950 F Date Time Provider Department 09/22/17 [...] the Right?breast, UIQ,?pathologic?stage 0 (Tis Nx M0),?ER-positive, AZ-positive, s/p?partial mastectomy ? COURSE: definitive AREA TREATED: [...] FOR* Visit Notes: >> Anatoliy Ha RN Mon Sep 22, 2017 10:22 AM Status: Signed Status: Post-menopausal. Encounter Status:Closed by FARHEEN CRONIN MD on 09/22/17 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 COURSE: definitive AREA TREATED: [...] as planned. ? Farheen Cronin MD Normal [facility] CBC and Differentialon 09-18 Abs Baso 0.03 k/uL Normal 0.00-0.10 [facility] Abs Grainger 0.45 k/uL Normal 0.00-0.86 [facility] Abs Neut 5.16 k/uL Normal 1.45-7.50 [facility] Basophils/100 WBC (Bld) 0.4 % Normal [facility] Eosinophils #/vol (Bld) 0.23 10*3/uL Normal 0.00-0.45 [facility] Eosinophils/100 WBC (Bld) 3.2 % Normal [facility] Erythrocyte distribution width Ratio (RBC) 15.0 % Normal 11.5-15.0 [facility] Hematocrit Volume Fraction (Bld) 39.1 % Normal 36.0-46.0 [facility] Hemoglobin mass conc (Bld) 13.0 g/dL Normal 11.5-15.5 [facility] Lymphocytes #/vol (Bld) 1.40 10*3/uL Normal 1.00-4.00 [facility] Lymphocytes/100 WBC (Bld) 19.3 % Normal [facility] MCH Entitic mass (RBC) 30.6 pG Normal 26.0-34.0 [facility] MCHC mass conc (RBC) 33.2 g/dL Normal 30.5-36.0 [facility] MCV Entitic volume (RBC) 92.0 fL Normal 80.0-100.0 [facility] Monocytes/100 WBC (Bld) 6.2 % Normal [facility] Neutrophils/100 WBC (Bld) 70.9 % Normal [facility] Platelet mean volume Entitic volume (Bld) 9.5 fL Normal 9.0-12.7 [facility] Platelets #/vol (Bld) 272 10*3/uL Normal 150-400 [facility] RBC #/vol (Bld) 4.25 10*6/uL Normal 3.90-5.20 [facility] WBC #/vol (Bld) 7.27 10*3/uL Normal 3.70-11.00 [facility] CNOVon 09-18-2017 CNOV Office Visit (RADTSA ) JOSS WASHINGTON ([id number]) 1950 F Date Time Provider Department 09/18/17 10:10 AM LAB/PORT RADT ARIEL HILARIO During your [...] De León RN Referring Provider: FARHEEN CRONIN [[id number]] Allergies As of Date: 09/18/2017 (No Known [...] Notes: >> Dexter (Clara) CLARA De León [facility] Sep 18, 2017 10:01 AM Status: Signed Joss J Felix presents in [...] by DEXTER DE LEÓN on 09/18/17 Normal [facility] CNOVon 09-16-2017 CNOV Office Visit (RADTSA ) FELIXJOSS ([id number]) 1950 F Date Time Provider Department 09/16/17 [...] the Right?breast, UIQ,?pathologic?stage 0 (Tis Nx M0),?ER-positive, AZ-positive, s/p?partial mastectomy ? 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 COURSE: definitive AREA TREATED: [...] treatment as planned. ? Farheen Cronin MD 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 COURSE: definitive AREA TREATED: [...] requiring intervention. Signed by: Jem Santana MD [facility] CNOVon 09-08-2017 CNOV Office Visit (RADTSA ) JOSS WASHINGTON ([id number]) 1950 F Date Time Provider Department 09/08/17 [...] the Right?breast, UIQ,?pathologic?stage 0 (Tis Nx M0),?ER-positive, AZ-positive, s/p?partial mastectomy ? COURSE: definitive AREA TREATED: [...] Allergies) Date Reviewed: 09/08/2017 Reviewed by: Anatoliy Montilla) CLARA Ha - Fully Assessed Reason for Visit: Radiotherapy [...] by JEM SANTANA MD on 09/18/17 Normal [facility] CBC and Differentialon 09-04 Abs Baso 0.03 k/uL Normal <0.11 [facility] Comment on above: Performed By: #### C BCDIF ####[facility] [address] [place], [place] [phone] Abs Grainger 0.45 k/uL Normal <0.87 [facility] Comment on above: Performed By: #### C BCDIF ####[facility] [address] [place], [place] [phone] Abs Neut 3.74 k/uL Normal 1.45-7.50 [facility] Comment on above: Performed By: #### C BCDIF ####[facility] [place], [place] [phone] Basophils/100 WBC (Bld) 0.5 % Normal [facility] Comment on above: Performed By: #### C BCDIF ####[place] [id number] [place], [place] [phone] Comment AGC=3.68 Normal [facility] Comment on above: Result Comment: Prel iminary result. Interpret with caution. Final results may vary. Results requested and read back by: /09/04/1710/15/1026/OSITO CASTELLON Performed By: #### C BCDIF ####[place] [address] [address] [phone] Eosinophils #/vol (Bld) 0.23 10*3/uL Normal <0.46 [facility] Comment on above: Performed By: #### C BCDIF ####[place] [address] [address] [place] [phone] Eosinophils/100 WBC (Bld) 3.7 % Normal [facility] Comment on above: Performed By: #### C BCDIF ####[place] [address] [address] [place] [phone] Erythrocyte distribution width Ratio (RBC) 15.5 % High 11.5-15.0 [facility] Comment on above: Performed By: #### C BCDIF ####[place] [address] [place] [place] [phone] Hematocrit Volume Fraction (Bld) 37.1 % Normal 36.0-46.0 [facility] Comment on above: Performed By: #### C BCDIF ####[place] [address] [address] [place] [phone] Hemoglobin mass conc (Bld) 12.2 g/dL Normal 11.5-15.5 [facility] Comment on above: Performed By: #### C BCDIF ####[place] [address] [address] [place] [phone] Lymphocytes #/vol (Bld) 1.78 10*3/uL Normal 1.00-4.00 [facility] Comment on above: Performed By: #### C BCDIF ####[place] [address] [place], [place] [phone] Lymphocytes/100 WBC (Bld) 28.6 % Normal [facility] Comment on above: Performed By: #### C BCDIF ####[address] [phone] MCH Entitic mass (RBC) 30.3 pG Normal 26.0-34.0 [facility] Comment on above: Performed By: #### C BCDIF ####[place] [phone] MCHC mass conc (RBC) 32.9 g/dL Normal 30.5-36.0 [facility] Comment on above: Performed By: #### C BCDIF ####[address] [phone] MCV Entitic volume (RBC) 92.1 fL Normal 80.0-100.0 [facility] Comment on above: Performed By: #### C BCDIF ####[place] [phone] Monocytes/100 WBC (Bld) 7.2 % Normal [facility] Comment on above: Performed By: #### C BCDIF ####[address] [phone] Neutrophils/100 WBC (Bld) 60.0 % Normal [facility] Comment on above: Performed By: #### C BCDIF ####[address] [phone] Platelet mean volume Entitic volume (Bld) 9.3 fL Normal 9.0-12.7 [facility] Comment on above: Performed By: #### C BCDIF ####[address] [phone] Platelets #/vol (Bld) 285 10*3/uL Normal 150-400 [facility] Comment on above: Performed By: #### C BCDIF ####[facility] [address] [place], [place] [phone] RBC #/vol (Bld) 4.03 10*6/uL Normal 3.90-5.20 [facility] Comment on above: Performed By: #### C BCDIF ####[facility] [address] [place], [place] [phone] WBC #/vol (Bld) 6.19 10*3/uL Normal 3.70-11.00 [facility] Comment on above: Performed By: #### C BCDIF ####[facility] [place], [place] [phone] CNOVon 09-04-2017 CNOV Office Visit (RADTSA ) JOSS WASHINGTON ([id number]) 1950 F Date Time Provider Department 09/04/17 [...] De León RN Referring Provider: FARHEEN CRONIN [[id number]] Allergies As of Date: 09/04/2017 (No Known [...] right breast*INVALID FOR* Visit Notes: >> Dexter (Rn) CLARA De León [facility] Sep 04, 2017 12:44 PM Status: Signed [...] Status:Closed by DEXTER DE LEÓN on 09/04/17 [facility] CNOVon 09-02-2017 CNOV Office Visit (RADTSA ) JOSS WASHINGTON ([id number]) 1950 F Date Time Provider Department 09/02/17 [...] pathologic stage 0 (Tis Nx M0), ER-positive, AZ-positive, s/p partial mastectomy COURSE: definitive AREA TREATED: [...] right breast*INVALID FOR* Visit Notes: >> Anatoliy ([place] Ha RN loni Sep 02, 2017 10:09 AM Status: Signed Status: Post-menopausal. Encounter Status:Closed by FARHEEN CRONIN MD on 09/02/17 [facility] PROGRESSon 09-02-2017 Protein mass conc HNO ID: [id number] Author: Farheen Cronin Service: (none) Author Type: Physician Type: Progress Notes Filed: 09/02/2017 1:31 PM Note Text: Radiation Oncology - On Treatment Review (OTR) Note PATIENT NAME: Joss Washington PATIENT DIAGNOSIS: DCIS of the Right breast, UIQ, pathologic stage 0 (Tis Nx M0), ER-positive, AZ-positive, s/p partial mastectomy COURSE: definitive AREA TREATED: [...] radiation treatment as planned. Farheen Cronin MD [facility] CNOVon 08-27-2017 CNOV Office Visit (RADTSA ) FELIXJOSS MIX ([id number]) 1950 F Date Time Provider Department 08/27/17 1:30 PM JEM SANTANA During your visit today, we recorded the following information about you: Dexter De León RN, RN 08/27/2017 2:20 PM Signed Status: Post-menopausal. 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 Plan and MU calculations [...] Jem Santana MD Referring Provider: JEM SANTANA [[id number]] Allergies As of Date: 08/27/2017 (No Known [...] Visit Notes: >> Dexter De León RN FriAugust 27, 2017 2:04 PM Status: Signed Status: Post-menopausal. Dexter De León RN Encounter Status:Closed by JEM SANTANA MD on 09/12/17 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 Plan and MU calculations [...] of treatment. Signed by: Jem Santana MD [facility] NON-RADIOLOGY -NBNRo n 08-20-[address] [facility] [address] NON-RADIOLOGY -NBNR [facility] - CT Images - Obtained Outside of Imaging [place] [id number] 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 Was approved? No Signed by: Anatoliy Ha [...] Encounter Status:Closed by ANATOLIY HA on 08/20/17 [facility] CNOVon 08-20-2017 CNOV Office Visit (RADTSA ) JOSS WASHINGTON ([id number]) 1950 F Date Time Provider Department 08/20/17 [...] pathologic stage 0 (Tis Nx M0), ER-positive, AZ-positive, s/p partial mastectomy. HPI: 67 year old [...] with her . 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 COMPLETE REVIEW [...] Farheen Cronin MD cc: Lawrence Rai MD [address] [place], [place] [address], [place] [address] Katherine Downs MD [facility] [address] [place] [address] Dr. Berman This note was dictated with Dragon Naturally Speaking and may contain some grammatical errors due to limitations of the software. Referring Provider: KATHERINE DOWNS [[id number]] Allergies As of Date: 08/20/2017 (No Known [...] by FARHEEN CRONIN MD on 08/20/17 Normal [facility] PROGRESSon 08-20-2017 Protein mass conc HNO ID: [id number] Author: Farheen Cronin Service: (none) Author Type: Physician Type: Progress Notes Filed: 08/20/2017 3:39 PM Note Text: Radiation Oncology - New Patient/Consult Note PATIENT NAME: Joss Washington PATIENT REQUESTING PROVIDER: Dr. Katherine Downs DIAGNOSIS: 67 year old female with DCIS of the Right breast, UIQ, pathologic stage 0 (Tis Nx M0), ER-positive, AZ-positive, s/p partial mastectomy. HPI: 67 year old [...] with her . 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 COMPLETE REVIEW [...] Farheen Cronin MD cc: Lawrence Rai MD [facility] [place] [address] Katherine Downs MD [facility] [address] [place] [address] Dr. Berman This note was dictated with Jazmin Naturally Speaking and may contain some grammatical errors due to limitations of the software. 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 Electronically Signed Farheen Cronin M.D. / IVETH 08/20/20173:59 PM Normal [facility] Protein mass conc HNO ID: [id number] Author: Farheen Cronin Service: (none) Author Type: Physician Type: Progress Notes Filed: 08/27/2017 12:34 AM Note Text: JOSS WASHINGTON [id number] 08/20/2017 [facility] Department of Radiation Oncology Treatment [...] Signed Farheen Cronin M.D. 08/26/20171:02 PM Normal [facility] CNOVSPon 08-14-2017 CNOVSP Visit (SP) Office (HEMACL) JOSS WASHINGTON ([id number]) 1950 F Date Time Provider Department 08/14/17 1:45 PM KATHERINE DOWNS During your visit today, we recorded the following information about you: Temperature Pulse Respiration Blood pressure 98.3 degrees 71/minute 18/minute 150/68 Weight Height 132.2 kg 1.6 m Katherine Downs MD 08/14/2017 2:27 PM Signed HPI Joss Jonesan is a 67 year old female who [...] Katherine Downs MD Referring Provider: GEREMIAS BERMAN [[id number]] Allergies As of Date: 08/14/2017 (No Known Allergies) Date Reviewed: 08/14/2017 Reviewed by: Iesha Luis - Fully Assessed Primary Visit Diagnosis:Ductal carcinoma in situ (DCIS) of right breast [D05.11] Order(s):RAD/ONC CONSULT [9037] Order #: [id number]: 1 Prescriptions as of 08/14/2017 Sig: VENTOLIN [...] by KATHERINE DOWNS MD on 08/14/17 Normal [facility] PROGRESSon 08-14-2017 Protein mass conc HNO ID: [id number] Author: Katherine Downs Service: (none) Author Type: Physician Type: Progress Notes Filed: 08/14/2017 2:27 PM Note Text: GEMINI Joss Washington is [...] in situ) of breast 06/[address] Carli - Depression - Diabetes (HCC) - Diverticulitis [...] - RAD/ONC CONSULT Katherine Downs MD Normal [facility] US-US GUIDE LOCAL BREAST RT IMPORTon 07-04-2017 US-US GUIDE LOCAL BREAST RT IMPORT Images were obtained outside of [facility] [id number] Normal [facility] MAMM OUTSIDE DICOM IMPORT -N BNRon 06-18-2017 MAMM OUTSIDE DICOM IMPORT -NBNR Images were obtained outside of [facility] [id number] Normal [facility] Encounters Encounter Date Encounter Type Care Provider Facility Start: 08-06-2024 End: 08-06-2024 ambulatory [facility] Start: 05-07-2024 End: 05-07-2024 ambulatory [facility] Start: 03-16-2022 End: 03-17-[address] LAWRENCE RAI Facility:[facility] Start: 02-28-[address] LAWRENCE RAI Facility :[facility] Start: 02-08-2022 End: 02-09-[address] LAWRENCE RAI Facility:[facility] Start: 11-30-2021 End: 12-01-[address] LAWRENCE RAI Facility:[facility] Start: 06-11-2018 End: 06-15-2018 Patient encounter procedure FARHEEN CRONIN [facility] Start: 02-12-2018 End: 02-13-2018 Patient encounter procedure FARHEEN CRONIN [facility] Start: 12-04-2017 End: 12-11-2017 Patient encounter procedure LISA (SMART ENERGY SPECIALIST) ЕКАТЕРИНА [facility] Start: 10-30-2017 End: 10-30-2017 Patient encounter procedure FARHEEN CRONIN [facility] Start: 10-15-2017 End: 10-20-2017 Patient encounter procedure KATHERINE DOWNS [facility] Start: 10-14-2017 End: 10-14-2017 Patient encounter procedure FARHEEN CRONIN [facility] Start: 10-13-2017 End: 10-15-2017 Patient encounter procedure KATHERINE DOWNS [facility] Start: 10-09-2017 End: 10-30-2017 Patient encounter procedure KATHERINE YARELI [facility] Start: 10-08-2017 End: 10-10-2017 Patient encounter procedure KATHERINE DOWNS [facility] Start: 10-07-2017 End: 10-07-2017 Patient encounter procedure FARHEEN CRONIN [facility] Start: 10-06-2017 End: 10-10-2017 Patient encounter procedure KATHERINE ETIENNEROSIE [facility] Start: 10-03-2017 End: 10-08-2017 Patient encounter procedure KATHERINE DOWNS [facility] Start: 10-02-2017 End: 10-20-2017 Patient encounter procedure KATHERINE DOWNS [facility] Start: 09-30-2017 End: 09-30-2017 Patient encounter procedure FARHEEN CRONIN [facility] Start: 09-29-2017 End: 10-06-2017 Patient encounter procedure KATHERINE DOWNS [facility] Start: 09-26-2017 End: 10-02-2017 Patient encounter procedure KATHERINE DOWNS [facility] Start: 09-25-2017 End: 09-29-2017 Patient encounter procedure [facility] DOWNS [facility] [facility] Start: 09-24-2017 End: 10-06-2017 Patient encounter procedure KATHERINE DOWNS [facility] Start: 09-23-2017 End: 09-29-2017 Patient encounter procedure KATHERINE DOWNS [facility] Start: 09-22-2017 End: 09-22-2017 Patient encounter procedure ZULEMAAdrián Celeste CRONIN [facility] Start: 09-19-2017 End: 09-22-2017 Patient encounter procedure KATHERINE DOWNS [facility] Start: 09-18-2017 End: 09-18-2017 Patient encounter procedure FARHEEN CRONIN [facility] Start: 09-17-2017 End: 09-30-2017 Patient encounter procedure KATHERINE DOWNS [facility] Start: 09-16-2017 End: 09-16-2017 Patient encounter procedure FARHEEN CRONIN [facility] Start: 09-15-2017 End: 09-17-2017 Patient encounter procedure KATHERINE DOWNS [facility] Start: 09-12-2017 End: 09-17-2017 Patient encounter procedure KATHERINE DOWNS [facility] Start: 09-11-2017 End: 09-15-2017 Patient encounter procedure KATHERINE DOWNS [facility] Start: 09-10-2017 End: 09-22-2017 Patient encounter procedure KATHERINE DOWNS [facility] Start: 09-09-2017 End: 09-15-2017 Patient encounter procedure KATHERINE DOWNS [facility] Start: 09-08-2017 End: 09-08-2017 Patient encounter procedure JEM SINGLETONAN [facility] Start: 09-05-2017 End: 09-15-2017 Patient encounter procedure KATHERINE DOWNS [facility] Start: 09-04-2017 End: 09-04-2017 Patient encounter procedure FARHEEN CRONIN [facility] Start: 09-03-2017 End: 09-15-2017 Patient encounter procedure KATHERINE DOWNS [facility] Start: 09-02-2017 End: 09-02-2017 Patient encounter procedure FARHEEN CRONIN [facility] Start: 09-01-2017 End: 09-04-2017 Patient encounter procedure KATHERINE DOWNS [facility] Start: 08-29-2017 End: 09-01-2017 Patient encounter procedure KATHERINE DOWNS [facility] Start: 08-28-2017 End: 09-01-2017 Patient encounter procedure KATHERINE DOWNS [facility] Start: 08-27-2017 End: 08-27-2017 Patient encounter procedure JEM SANTANA [facility] Start: 08-20-2017 End: 08-21-2017 Patient encounter procedure FARHEEN CRONIN [facility] Start: 08-14-2017 End: 08-15-2017 Patient encounter procedure KATHERINE DOWNS [facility] Payers Date Payer Category Payer Unknown [id number] 1958 Medicare [id number] 1958 Self-pay [id number] 1958 Unknown [id number] 1950 Unknown [id number] [id number] [id number] 1950 Unknown [id number] [id number] [id number] 1950 Unknown [id number] [id number] [id number] 1950 Unknown [id number] [id number] [id number] Progress note 08-06-2024 Note Date & Type Note Facility 08-06-2024 Note [facility] Note Reason for cardiology [...] and right breast cancer Patient presented to [facility] on 03/18/2024 with vision changes which [...] monitor 03/19/2024 Review (more content not included)... [facility] Progress note 05-07-2024 Note Date & Type Note Facility 05-07-2024 Note [facility] Note Reason for cardiology consult: TIA Chief Complaint: dyspnea on exertion HPI: Joss Washington is a 73 y.o. female with history of hypertension, hyperlipidemia, recent TIA, and right breast cancer Patient presented to [facility] on 03/18/2024 with vision changes which [...] has no past medical history of Stroke ([facility]). Surgical History She has a past [...] TIA, no ische (more content not included)... [facility] Summary Purpose Family History No Family History Records FoundNo Family History Records FoundNo Family History Records FoundNo Family History Records Found Advance Directives No Advanced Directives Records FoundNo Advanced Directives Records FoundNo Advanced Directives Records FoundNo Advanced Directives Records Found Additional Source Comments INFORMATION SOURCE (unrecogn ized section and content) DATE CREATED AUTHOR 06/15/2018 [facility] DATE CREATED AUTHOR AUTHOR'S ORGANIZ ATION [facility]/2019 [facility] DATE CREATED AUTHOR AUTHOR'S ORGANIZ ATION 03/22/2022 [facility] DATE CREATED AUTHOR AUTHOR'S ORGANIZ ATION 09/02/2024 [facility] FOR RECORDS PERTAINING TO PATIENTS WHO [...] BE BASED ON THE PRIMARY CLINICAL RECORDS. [employer] provides no warranty or guarantee of the accuracy or completeness of information in this document.
== END 2024-09-15 20:41 | disposition home or self-care (01) ==
LOC: SLEEP 20:40
PROVIDERS: PCP Family Medicine; Visit Provider Internal Medicine Cardiovascular Disease
DX: G47.33 Obstructive sleep apnea (adult) (pediatric) (principal)
CPT/HCPCS: 95811

== ENCOUNTER 2024-12-29 09:04 | Outpatient (OUT) | payer MEDICARE, OTHER, SELFPAY ==
--- OUTSIDE RECORDS SUMMARY | 2024-08-06 10:27 | XMS_ITS ---
Author Name Auto Generated Organization [facility] Care Team Providers Care [employer] Architect Name Role Phone JOHN MAC Attending Unavailable JOHN MAC Attending Unavailable PROBLEMS DATE TYPE CONDITION / CODE [facility]ENDING STATUS [facility]09[facility]24 Admitting Diagnosis Essential (primary) hypertension / I10(ICD-10) JOHN MAC Active [facility] 05/07/2024 Admitting Diagnosis Transient cerebral ischemic attack, unspecified / G45.9(ICD-10) JOHN MAC Active [facility] 05/07/2024 Admitting Diagnosis Hyperlipidemia, unspecified / E78.5(ICD-10) JOHN MAC Active [facility] PROCEDURES No Procedure Records Found RESULTS 36 Observed: 09/01/2024 1:39 PM Status: COMPLETED Source: [facility] From: John Mac MD Sent: 08/29/2024 3:06 PM EDT To: Gerda Coppola MA Subject: RE: Scan Labs are overall good. Ask her if her blood pressure is better after adding Aldactone/spironolactone Advised patient of Dr. Mac's findings. Patient states her blood pressure is doing great and she feels much better. PROGRESS Observed: 08/06/2024 10:20 AM Status: COMPLETED Source: [facility] Office Cardiology Clinic Note Reason for cardiology visit: Follow-up on TIA, hypertension and hyperlipidemia Chief Complaint: dyspnea on exertion HPI: 08/06/2024 She is here today for follow-up visit. Overall she is feeling good. She denies any palpitations or dizziness. She denies any chest discomfort at rest or with exertion. She admits shortness of breath with exertion. She does not do a lot of physical activities. 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 She denies orthopnea or paroxysmal nocturnal dyspnea. She reports snoring but she does not wake up gasping for air but sometimes she does not get enough sleep because she wakes up in the middle of the night and cannot go back to sleep. She is sleepy during the daytime on those days. She denies legs edema or legs discomfort on exertion. 05/07/2024 Charlee Nagy is a 74 y.o. female with history of hypertension, hyperlipidemia, recent TIA, and right breast cancer Patient presented to [facility] on 03/18/2024 with vision changes which lasted [...] both parents had hypertension, Mother had stroke ROS: All systems were reviewed and they were negative except for the positive findings noted above in the history Past Medical History She has a past medical history of Hyperlipidemia, Hypertension, Stroke (CMS/HCC), and TIA (transient ischemic attack). Surgical History She has a past surgical [...] Rfl: Last Recorded Vitals Visit Vitals BP 150/82 (BP Location: Right wrist, Patient Position: Sitting) Pulse 74 Ht 1.6 m (5' 3 ) Wt 136 kg (299 lb) SpO2 98% BMI 52.97 kg/m??? Smoking Status Former BSA 2.46 m??? Physical Examination: GENERAL: alert and oriented x3, well developed, in no acute distress. HEAD: atraumatic, normocephalic. EYES: JEROMY, EOMI. NECK: trachea midline, no JVD present, no carotid bruits present. CARDIAC: S1, S2 present. RRR. No murmur, rubs, or gallops. RESPIRATORY: CTAB, no increased effort of breathing, no rales, rhonchi, or wheezing. ABDOMEN: soft, nontender, nondistended. EXTREMITIES: Mild edema bilaterally. No rash/skin discoloration present. NEURO: strength/sensation equal and symmetric in bilateral upper and lower extremities. PSYCH: appropriate mood, affect, and judgement. Labs: 05/14/2024 Triglyceride 135, cholesterol 187, HDL 76, LDL 84, AST 17, ALT 22 03/18/2024 1 blood count 8.6, hemoglobin 12.3, [...] normal sinus rhythm, nonspecific T wave changes Limited echo 05/14/2024 Echo 03/19/2024 Neck and head CTA 03/18/[address] 03/18/2024 7-day Holter monitor 03/19/2024 Reviewing the strips myself there was only 2 episodes of SVT the longest was 12 beats, both of them represented atrial tachycardia Assessment and Plan: Recent TIA, no ischemic changes noted on head CT, no significant stenosis of the carotid arteries. Patient was significantly hypertensive on presentation. 7-day Holter monitor showed only 2 short episodes of atrial tachycardia. Most recent 30-day event monitor did not show any A-fib or any significant arrhythmias No PFO noted on recent echo with bubble study 05/14/2024 On Plavix and simvastatin Dyspnea on exertion, echo showed normal left ventricle systolic and diastolic function and no significant valvular abnormalities, most likely due to obesity and deconditioning and uncontrolled hypertension Hypertension, on lisinopril and Cardizem. Blood pressure is elevated today. Her home blood pressure log showed elevated numbers Hyperlipidemia, LDL cholesterol 152 December 2023, on simvastatin 20 mg daily. It appears to be well-controlled on recent labs Morbid obesity, BMI 53.5 kg/m??? High likelihood of sleep apnea Right breast cancer Plan: Continue current medications including lisinopril, Cardizem, Plavix, and simvastatin I will start her on spironolactone 50 mg daily in addition to above medications I asked the patient to follow low-salt diet and to check her blood pressure twice daily for 2 weeks and send me the log BMP in 1 week We discussed loop recorder implant in order to look for paroxysmal atrial fibrillation however the patient wanted to wait because she thinks that her TIA was related to hypertensive urgency because at that time she was taking medication without paying attention but she will call for any palpitation and reconsider loop recorder implant Recheck lipids and AST ALT next month Referral for sleep study I had lengthy discussion with the patient regarding the importance of losing weight. In fact patient follows a very healthy diet but she does not exercise. She discussed with her PCP starting medication such as Ozempic or similar drugs but her insurance does not cover it. I recommended to try to follow-up with the certified professional midwife who is weight loss specialist to help her with that She was advised again to start walking aiming at least for 1 mile a day then she can advance the speed in the distance Follow-up with me in 6 months John Mac MD,[facility] OFFICE VISIT Observed: 08/06/2024 10:20 AM Status: COMPLETED Source: [facility] [id number] Charlee Nagy 1950 Provider Department Center 08/06/2024 [id number] ADAMS HELLEN Delaney Family History Problem Relation Age of Onset Hypertension Mother Stroke Mother Hyperlipidemia Mother Hypertension Father Coronary artery disease Father Hyperlipidemia Father Cancer Father Family Status - Relation Status Age at Mother Father Level of Service:68613 ME OFFICE/OUTPATIENT ESTABLISHED MOD MDM 30 MIN Reason for Visit and Comments: Hyperlipidemia [182] - Had lipid in May 2024. Hypertension [272392] - She brought BP log with her. Shortness of Breath [473922] - She attributes her MORENO to her weight. Says it's hard for her to walk a lot due to knee pain. Palpitations [844354] - Hasn't had palpitations recently. Transient Ischemic Attack [979341] - Had bubble study in May 2024. She wants to know if she can stop Plavix due to TIA being ruled out. OFFICE VISIT Observed: 05/07/2024 9:40 AM Status: COMPLETED Source: [facility] [id number] Charlee Nagy 1950 Provider Department Center 05/07/2024 [id number] MACIAS HELLEN Delaney Family History Problem Relation Age of Onset Hypertension Mother Stroke Mother Hyperlipidemia Mother Hypertension Father Coronary artery disease Father Hyperlipidemia Father Cancer Father Family Status - Relation Status Age at Mother Father Level of Service:44148 ME OFFICE/OUTPATIENT NEW MODERATE MDM 45 MINUTES Reason for Visit and Comments: Chest Pain [747498] - Patient describes it as chest discomfort . Says she was told 40+ years ago that she had mitral valve prolapse. Echo was done with recent admission. Hypertension [553761] - She was admitted to [facility] in Feb 2024 for TIA and hypertension. Hyperlipidemia [182] Shortness of Breath [341549] - C/o MORENO. Palpitations [119313] - She wore 7 day Holter after hospital admission. She is currently wearing a 30 day event monitor. PROGRESS Observed: 05/07/2024 9:40 AM Status: COMPLETED Source: [facility] Office Cardiology Clinic Note Reason for cardiology consult: TIA Chief Complaint: dyspnea on exertion HPI: Charlee Nagy is a 73 y.o. female with history of hypertension, hyperlipidemia, recent TIA, and right breast cancer Patient presented to [facility] on 03/18/2024 with vision changes which lasted [...] has no past medical history of Stroke ([facility]). Surgical History She has a past surgical [...] tachycardia Assessment and Plan: Recent TIA, no ischemic changes noted on head CT, no significant stenosis of the carotid arteries. 7-day Holter monitor showed only 2 short episodes of atrial tachycardia On Plavix and simvastatin Dyspnea on exertion, echo showed normal left ventricle systolic and diastolic function and no significant valvular abnormalities, most likely due to obesity and deconditioning Occasional palpitations Hypertension, on lisinopril and Cardizem. Blood pressure is elevated today Hyperlipidemia, LDL cholesterol 152 on last labs December 2023, on simvastatin 20 mg daily Morbid obesity, BMI 53.5 kg/m??? Right breast cancer Plan: Continue current medications including lisinopril, Cardizem, Plavix, and simvastatin I asked the patient to follow low-salt diet and to check her blood pressure twice daily for 2 weeks and send me the log Check fasting lipids and AST ALT towards the end of the month. The goal is to keep LDL cholesterol 70 or below I will provide her with 30-day event monitor to evaluate for paroxysmal A-fib and if is not revealing we will consider loop recorder implant Will obtain 2D echo with bubble study to rule out PFO Patient was highly advised regarding the importance of losing weight by following low calorie low-carb diet and exercise She was advised to start walking aiming to achieve 1 mile per day 5 days a week. Follow-up with me in 2 months John Mac MD,[facility] DATE TYPE / CODE NAME / CODE REACTION SEVERITY SOURCE SYSTEMIC/[id number]( SNOMED CT) NO KNOWN ALLERGIES [facility] ENCOUNTERS ADMIT/DISCHARGE ACCOUNT NUMBER ADMITTING ENCOUNTER CLASS LOCATION SOURCE 08/06/2024/ 5 [id number] Ambulatory Building:[facility] 05/07/2024/ 5 [id number] Ambulatory Building:[facility] PAYERS ENCOUNTER GUARANTOR PAYER SUBSCRIBER SOURCE 08/06/2024 Primary Insurance:MEDICAREPoli cy Number: [id number] Date:3693-04-22Oldv Name:Medicare PATRICIA Nahomy COOPEROB: [id number] [place] [address] [facility] 08/06/2024 Secondary Insurance:[place] MARY Erazo Number: [id number] Date:2016-05-01 CHARLEE COOPEROB: [id number] [place] [address] [facility] 05/07/2024 Primary Insurance:MEDICAREPoli cy Number: [id number] Date:3224-89-67Hnez Name:Medicare PATRICIA J HERMANDOB: [id number] [place] [address] [facility]
--- OUTSIDE RECORDS SUMMARY | 2024-12-22 06:18 | XMS_ITS ---
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 Assessments Encounter Date Diagnosis (ICD Code) Assessment Notes Treatment Notes Treatment Clinical Notes Section Notes 12/22/2024 Benign neoplasm of meninges (ICD-10 - D32.9) Plan Of Treatment Medication Medication Name Sig Start Date Stop Date Notes Valium 10 MG 1 tablet as needed O rally once about 1 hour before procedure; Duration: 1 days 12/22/2024 Pending Test Test Name Order Date MRI Brain w/o contrast 12/22/2024 Progress Notes * Charlee NAGYDOB:1950 (74 yo F)Acc No.[id number]:12/22/2024 Patient: César SOLIS Charlee Corea :1950 A ge:74 Y S ex:Female Address:[address] [place] [id number] * Refills Start Valium Tablet, 10 MG, Orally, 1, 1 tablet as needed, once about 1 hour before procedure, 1 days Subjective: * Chief Complaints: * M RI Brain 6mo f/u- PreMedicate * Medical History: * Surgical History: * Hospitalization/Major Diagno stic Procedure: * Medications: Objective: * Vitals: * Physical Examination: Assessment: * Assessment: 1. B enign neoplasm of meninges - D32.9 (Primary) Plan: * Treatment: 2. O thers Start Valium Tablet, 10 MG, 1 tablet as needed, Orally, once about 1 hour before procedure, 1 days, 1. * Procedure Codes: * true * Date: Generated for Sandra garza/Marva/eTalphonsosmitting on: 09:06 AM EDT
--- OUTSIDE RECORDS SUMMARY | 2024-12-22 10:00 | XMS_ITS ---
Author Organization [facility] in [place] Address [address] [place] [address] Care Team Providers Care Hemotherapist Name Role Phone Chino Rai Primary Care Provider Allergies Allergen (clinical drug ingredient) Drug/Non Drug Allergy documented on EMR Reaction Allergy Type Onset Date Status fluticasone / vilanterol Breo Ellipta mouth ulcers Drug Allergy Active REASON FOR VISIT chest infection, Coughing Medications Medication SIG (Take, Route, Frequency, Duration) Notes Start Date End Date Status Azelastine HCl 0.05 % 1 drop into affect ed eye Ophthalmic Twice a day Active levoFLOXacin 750 MG 1 tablet Orally Once a day; Duration: 10 day(s) 12/22/2024 Active Daypro 600 MG 2 tablets Orally darlene ly; Duration: 20 days 06/21/2024 Active Clopidogrel Bisulfate 75 MG 1 tablet Ora lly Once a day; Duration: 90 days Active Cholecalciferol 50 MCG (2000 UT) 1 capsule Orally Once a day OTC 01/06/2024 Active predniSONE 10 MG 5 tabs per day for 3 days, 4 tabs per day for 3 ays, 3 tabs perday for 3 days, 2 tabs per day for 3 days, 1 tab a day for 3 days, 1/2 tab a day for 4 days Orally Once a day; Duration: 19 days 12/22/2024 Active Benzonatate 200 MG 1 capsule Orally Thr ee times a day; Duration: 7 days 10/14/2024 Active Spironolactone 50 MG TAKE 1 TABLET BY UTH IN THE MORNING Oral; Duration: 90 Days Active Ventolin HFA 108 (90 Base) MCG/ACT 2 puff as needed Inhalation every 4 hrs 10/18/2024 Active Valium 10 MG 1 tablet as needed Orally once about 1 hour before procedure; Duration: 1 days 12/22/2024 Active tiZANidine HCl 4 MG 2 tabs Orally qhs; Duration: 30 days 06/21/2024 Active Spiriva Respimat 1.25 MCG/ACT 2 puffs Inhalation Once a day 01/06/2024 Active Simvastatin 20 MG 1 tablet Orally ever y evening; Duration: 90 days 01/06/2024 Active Lisinopril 40 MG 1 tablet Orally Once a day; Duration: 90 days Active Lac-Hydrin Five 5 % 1 application Airplane Mechanic ally Twice a day 09/28/2024 Active hydrOXYzine HCl 25 MG 1 tablet at bedtim e as needed Orally Once a day Active dilTIAZem HCl 120 MG 1 capsule Orally bi d; Duration: 90 days Active Social History Tobacco Use: Social History Observation Description Date Details (start date - stop date) Never Smoker NA - NA Tobacco Use/Smoking Question Answer Notes Patient is a nonsmoker AUDIT-C (Standard) Question Answer Notes Did you have a drink containing alcohol in the p ast year? No Points 0 Interpretation Negative Vital Signs Weight 301.2 lbs 12/22/2024 Height 63 in 12/22/2024 Blood pressure systolic 132 mm Hg 12/23/19 25 Blood pressure diastolic 84 mm Hg 025 BMI 53.35 kg/m2 12/22/2024 Encounters Encounter Location Date Provider Diagnosis [facility] [address] [place] [address] 12/22/2024 Chino Rai Acute bronchitis, unspecified organism J20.9 Assessments Encounter Date Diagnosis (ICD Code) Assessment Notes Treatment Notes Treatment Clinical Notes Section Notes 12/22/2024 Acute bronchitis, unspecified organism (ICD-10 - J20.9) Rest and drink more liquids, especially water. You may use a humidifier or vaporizer to help keep the drainage moist. Bkxy-rpu-hpbojhr Nasal Saline may help the stuffy and runny nose. Use Ibuprofen and or Tylenol as needed for fever, chills, body aches or pain. Children 5 years old should not be given nsje-stq-ayrjxbs cough and cold medications such as guaifenesin and dextromethorphan. If you're over age 5, you may try mrpb-ego-vhnopzl cold medications such as guaifenesin and dextromethorphan, or multi-symptom cold reliever such as Dayquil to help reduce the symptoms. Antibiotics have been prescribed. You should take these until completed and follow the directions. Antibiotics can sometimes cause upset stomach, and in rare cases, serious allergic reactions or serious gastrointestinal problems. If you start having severe abdominal pain, severe vomiting, or bloody diarrhea, you should be reevaluated by your physician or urgent care immediately. Follow up with your Primary Care Provider or return to clinic if symptoms do not improve within 3-5 days. If you develop severe symptoms such as shortness of breath, repeated vomiting, coughing up blood, or chest pain you should go to the emergency room or call 911 Plan Of Treatment Medication Medication Name Sig Start Date Stop Date Notes levoFLOXacin 750 MG 1 tablet Orally Once a day; Duration: 10 day(s) 12/22/2024 Azithromycin 500 MG 1 tablet Orally Once a day 10/18/2024 predniSONE 10 MG 5 tabs per day for 3 days, 4 tabs per day for 3 ays, 3 tabs perday for 3 days, 2 tabs per day for 3 days, 1 tab a day for 3 days, 1/2 tab a day for 4 days Orally Once a day; Duration: 19 days 12/22/2024 Benzonatate 200 MG 1 capsule Orally Thr ee times a day; Duration: 7 days 10/14/2024 Doxycycline Monohydrate 100 MG 1 tablet Orally bid 025 Treatment Notes Assessment Notes Acute bronchitis, unspecified organism R est and drink more liquids, especially water. You may use a humidifier or vaporizer to help keep the drainage moist. Ficg-hnt-aqllprj Nasal Saline may help the stuffy and runny nose. Use Ibuprofen and or Tylenol as needed for fever, chills, body aches or pain. Children 5 years old should not be given emou-gwj-ipvqumj cough and cold medications such as guaifenesin and dextromethorphan. If you're over age 5, you may try xnfj-zhm-oyakstt cold medications such as guaifenesin and dextromethorphan, or multi-symptom cold reliever such as Dayquil to help reduce the symptoms. Antibiotics have been prescribed. You should take these until completed and follow the directions. Antibiotics can sometimes cause upset stomach, and in rare cases, serious allergic reactions or serious gastrointestinal problems. If you start having severe abdominal pain, severe vomiting, or bloody diarrhea, you should be reevaluated by your physician or urgent care immediately. Follow up with your Primary Care Provider or return to clinic if symptoms do not improve within 3-5 days. If you develop severe symptoms such as shortness of breath, repeated vomiting, coughing up blood, or chest pain you should go to the emergency room or call 911 Next Appt Details Follow Up: 3-5 days if not i mproving, Reason: Progress Notes * Charlee WASHINGTON NahomyDOB:1950 (74 yo F)Acc No.[id number]:12/22/2024 Progress Note Patient: Charlee KIM Provider: Adrián Rai ([facility])MD :1950 A ge:74 Y S ex:Female Date:12/22/2024 Address:[address] [place], [place] [address] Check In:01:41 PM ESTCheck O ut:02:24 PM EST Subjective: * Chief Complaints: * C hest infectionCoughing * HPI: B ronchitis: The patient complains of symptoms of bronchitis. The symptoms have been present for 1-2 days. The symptoms are moderate. The patient has not been exposed to sick contacts. Symptomatic treatment has included OTC medication. Associated symptoms include nasal congestion, postnasal drainage, congested ears, cough, fever, chills, body aches. * ROS: E NT: Ear pain d enies. H oarseness d enies. ? C ardiovascular: Edema d enies. P alpitations d enies. ? R espiratory: Comments S ee HPI for details. G astrointestinal: Abdominal pain d enies. D iarrhea d enies. N ausea d enies. S kin: Rash d enies. * Active Problem List E66.01 Morbid (severe) obes ity due to excess calories Modified On:08/02/2022W/U Status:confirmed E66.3 Overweight Modified On:08/02/2022W/U Status:confirmed I80.209 Phlebitis and thromb ophlebitis of unspecified deep vessels of unspecified lower extremity Modified On:08/02/2022 Status:confirmed M62.830 Muscle spasm of back Modified On:08/02/2022 Status:confirmed I10 Hypertension Modified On:08/02/2022 Status:confirmed G56.00 Carpal tunnel syndro me Modified On:08/02/2022 Status:confirmed Z00.00 Well adult Modified On:08/02/2022 Status:confirmed J30.2 Seasonal allergic rh initis Modified On:08/02/2022 Status:confirmed K57.92 Diverticulitis Modified On:08/02/2022 Status:confirmed R53.82 Chronic fatigue synd franck Modified On:08/02/2022 Status:confirmed 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 Modified On:08/02/2022 Status:confirmed G56.21 Ulnar nerve entrapme nt, right Modified On:08/02/2022 Status:confirmed Z68.43 BMI 50.0-59.9, adult Modified On:08/02/2022 Status:confirmed H66.92 Otitis media, left Modified On:08/02/2022 Status:confirmed L30.9 Eczema Modified On:08/02/2022 Status:confirmed M25.579 Ankle pain Modified On:08/02/2022 Status:confirmed M75.40 Shoulder impingement syndrome Modified On:08/02/2022 Status:confirmed 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 Modified On:08/02/2022 Status:confirmed E11.9 Diabetes mellitus ty pe 2, diet-controlled Modified On:04/01/2023 Status:confirmed F41.8 Anxiety and depressi on Modified On:08/02/2022 Status:confirmed R60.0 Edema of left lower leg Modified On:08/02/2022 Status:confirmed M54.50 Low back pain, unspe cified Modified On:08/02/2022 Status:confirmed R07.9 Chest pain Modified On:06/23/2023W/U Status:confirmed J45.909 Asthma Modified On:02/03/2023 Status:confirmed E03.9 Hypothyroidism Modified On:01/06/2024 Status:confirmed E78.00 Hypercholesterolemia Modified On:01/06/2024 Status:confirmed G45.9 TIA (transient ische pablo attack) Modified On:03/26/2024U Status:confirmed 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 Modified On:04/05/2024 Status:confirmed E78.5 Hyperlipemia Modified On:05/06/2024 Status:confirmed I10 BP (high blood press ure) Modified On:05/06/2024 Status:confirmed 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 M other: , lung disease, CVA, diagnosed with Unspecified heart disease. S ister(s): alive, Brain cancer, bladder cancer, diagnosed with Diabetes mellitus without mention of complication, type II or unspecified type, not stated as uncontrolled. S on(s): alive. D aughter(s): alive. 2 sister(s) . 2 son(s) , 1 daughter(s) - healthy. . * Social History: T obacco Use: T obacco Use/Smoking P atient is a n onsmoker D rug/Alcohol: A AMANDA-C (Standard) D id you have a drink containing alcohol in the past year? N o P oints 0 I nterpretation N egative * Medications: T akingAzelastine HCl 0.05 % Solution 1 drop into affected eye Ophthalmic Twice a day Azithromycin 500 MG Tablet 1 tablet Orally Once a day Benzonatate 200 MG Capsule 1 capsule Orally Three times a day Cholecalciferol 50 MCG (1999 UT) Capsule 1 capsule Orally Once a day , Notes to Pharmacist: OTCClopidogrel Bisulfate 75 MG Tablet 1 tablet Orally Once a day Daypro 600 MG Tablet 2 tablets Orally daily dilTIAZem HCl 120 MG Tablet 1 capsule Orally bid Doxycycline Monohydrate 100 MG Tablet 1 tablet Orally bid hydrOXYzine HCl 25 MG Tablet 1 tablet at bedtime as needed Orally Once a day Lac-Hydrin Five(Ammonium Lactate) 5 % Lotion 1 application Externally Twice a day Lisinopril 40 MG Tablet 1 tablet Orally Once a day Simvastatin 20 MG Tablet 1 tablet Orally every evening Spiriva Respimat(Tiotropium [place] Monohydrate) 1.25 MCG/ACT Aerosol Solution 2 puffs Inhalation Once a day Spironolactone 50 MG Tablet TAKE 1 TABLET BY MOUTH IN THE MORNING Oral tiZANidine HCl 4 MG Tablet 2 tabs Orally qhs Valium(diazePAM) 10 MG Tablet 1 tablet as needed Orally once about 1 hour before procedure Ventolin HFA(Albuterol Sulfate HFA) 108 (90 Base) MCG/ACT Aerosol Solution 2 puff as needed Inhalation every 4 hrs Taking Azelastine HCl 0.05 % Solution 1 drop into affected eye Ophthalmic Twice a day Taking Azithromycin 500 MG Tablet 1 tablet Orally Once a day Taking Benzonatate 200 MG Capsule 1 capsule Orally Three times a day Taking Cholecalciferol 50 MCG (1999 UT) Capsule 1 capsule Orally Once a day , Notes to Pharmacist: OTCTaking Clopidogrel Bisulfate 75 MG Tablet 1 tablet Orally Once a day Taking Daypro 600 MG Tablet 2 tablets Orally daily Taking dilTIAZem HCl 120 MG Tablet 1 capsule Orally bid Taking Doxycycline Monohydrate 100 MG Tablet 1 tablet Orally bid Taking hydrOXYzine HCl 25 MG Tablet 1 tablet at bedtime as needed Orally Once a day Taking Lac-Hydrin Five(Ammonium Lactate) 5 % Lotion 1 application Externally Twice a day Taking Lisinopril 40 MG Tablet 1 tablet Orally Once a day Taking Simvastatin 20 MG Tablet 1 tablet Orally every evening Taking Spiriva Respimat(Tiotropium [place] Monohydrate) 1.25 MCG/ACT Aerosol Solution 2 puffs Inhalation Once a day Taking Spironolactone 50 MG Tablet TAKE 1 TABLET BY MOUTH IN THE MORNING Oral Taking tiZANidine HCl 4 MG Tablet 2 tabs Orally qhs Taking Valium(diazePAM) 10 MG Tablet 1 tablet as needed Orally once about 1 hour before procedure Taking Ventolin HFA(Albuterol Sulfate HFA) 108 (90 Base) MCG/ACT Aerosol Solution 2 puff as needed Inhalation every 4 hrs DiscontinuedAmoxicillin-Pot Clavulanate 875-125 MG Tablet 1 tablet Orally every 12 hrs predniSONE 20 MG Tablet 3 tablets Orally Once a day Medication List reviewed and reconciled with the patientDiscontinued Amoxicillin-Pot Clavulanate 875-125 MG Tablet 1 tablet Orally every 12 hrs Discontinued predniSONE 20 MG Tablet 3 tablets Orally Once a day Medication List reviewed and reconciled with the patient * Allergies: B reo Ellipta: mouth ulcers - Side Effectsno[Allergies Verified] Objective: * Vitals: W t:301.2lbs, Ht: 63 in, BP:132/84mm Hg, BMI:53.35Index. * Examination: G eneral Examination: GENERAL APPEARANCE: in no acute distress. EYES: EOMI. EARS: auditory canal clear, middle ear effusion noted.? NOSE: clear discharge, turbinates pale and swollen. ORAL CAVITY: mucosa moist. THROAT: no erythema, post-nasal drainage noted. NECK: neck supple, no thyromegaly. LYMPH NODES: n o cervical adenopathy. LUNGS: D iffuse rhoinchi. CARDIO: n o murmurs, regular rate and rhythm. ABDOMEN: bowel sounds present, no organomegaly . ? Assessment: * Assessment: 1. A cute bronchitis, unspecified organism - J20.9 (Primary) Plan: * Treatment: * Procedure Codes: * Follow Up: 3 -5 days if not improving * * Sign off status: Completed Visit Status: C HK (Check Out) true * Provider: Adrián Rai ([facility])MD Date: 0 12/22/2024 Generated for Sandra garza/Marva/Karen on: 09:06 AM EDT History and Physical Notes * Examination Category Sub-Category Detail Notes Category Not es General Examination GENERAL APPEARANCE: in no acute di stress EYES: EOMI EARS: auditory canal clear , middle ear effusion noted NOSE: clear discharge, tur binates pale and swollen THROAT: no erythema, post-na eugene drainage noted NECK: neck supple, no thyr omegaly CARDIO: no murmurs, regular rate and rhythm LUNGS: Diffuse rhoinchi ABDOMEN: bowel sounds present , no organomegaly LYMPH NODES: no cervical adenopat hy ORAL CAVITY: mucosa moist
--- OUTSIDE RECORDS SUMMARY | 2024-12-29 09:06 | XMS_ITS | Clinical Summary ---
Author Organization [employer] [facility] Address [facility] [id number] [address] [place] [address] Care Team Providers Care Assistant Infant Teacher Name Role Phone Paolo Rai MD Primary Care Provider [phone] Social History Tobacco Use Types Packs/Day Years Used Date Smoking Tobacco: Never Assessed Childcare Answer Date Recorded Childcare Unknown 09/09/2018 Employment Answer Date Recorded Employment Unknown 09/09/2018 Comments Unknown Sex and Gender Information Value Date Recorded Sex Assigned at Not on file Legal Sex Female 11:53 AM EDT Gender Identity Not on file Sexual Orientation Not on file Plan of Treatment Not on file Medical Devices Not on file Insurance MEDICARE [facility] [place] [address] Care Teams Assistant Infant Teacher Relationship Specialty Start Date End Date Paolo Rai MD [address] [place] [address] PCP - General Family Medicine 03/19/24
--- OUTSIDE RECORDS SUMMARY | 2024-12-29 09:06 | XMS_ITS | Clinical Summary ---
Author Organization [facility] Address [address] [place], [place] [id number] Care Team Providers Care Crime Prevention Worker Name Role Phone Paolo Rai MD Primary Care Provider [phone] Allergies No known active allergies Medications VENTOLIN HFA 90 mcg/actuation inhaler 06/17/2017 Active citalopram (CELEXA) 40 mg tablet Take 40 mg by mouth once daily. 06/08/2017 Active diltiazem (CARDIZEM) 120 mg tablet Take 120 mg by mouth three times daily. 06/18/2017 Active lisinopril (ZESTRIL, PRINIVIL) 10 mg tablet Take 10 mg by mouth once daily. 06/17/2017 Active Multivitamins chew Take by mouth. Active Active Problems Problem Noted Date Diagnosed Date Ductal carcinoma in situ (DCIS) of right breast 08/14/2017 Family History Medical History Relation Comments Cancer Mother Relation Status Comments Mother Social History Tobacco Use Types Packs/Day Years Used Date Smoking Tobacco: Former Cigarettes Smokeless Tobacco: Never Comments:quit smoking in 197 5 Alcohol Use Standard Drinks/Week Comments No 0 (1 standard drink = 0.6 oz pur e alcohol) Area Deprivation Index Answer Date Tyrese rded National Score (1-100), lower number is lower ri sk Not on file 03/07/2020 State Score (1-10), lower number is lower risk N ot on file 03/07/2020 Data from: https://www.neighborhoodatlas.medicine[facility].edu/. Last address used for calculation Not on file 03/07/2020 Comments No Sex and Gender Information Value Date Recorded Sex Assigned at Not on file Legal Sex Female 12:59 PM EDT Gender Identity Not on file Sexual Orientation Not on file Last Filed Vital Signs Vital Sign Reading Time Taken Comments Blood Pressure 156/74 06/11/2018 10:34 AM EDT Pulse 93 06/11/2018 10:34 AM EDT Temperature 36.8 C (98.3 F) 12/04/2017 10:47 AM EDT Respiratory Rate 22 06/11/2018 10:34 AM EDT Oxygen Saturation 94% 06/11/2018 10:34 AM EDT Inhaled Oxygen Concentration - - Weight 132 kg (291 lb) 06/11/2018 10:34 AM EDT Height 160 cm (5' 2.99 ) 12/04/2017 10:36 AM EDT Body Mass Index 51.56 12/04/2017 10:36 AM EDT Plan of Treatment Health Maintenance Due Date Last Done Comments Anxiety Screening 1969 Depression Screening 1969 Hepatitis C Screening 1969 DTaP,Tdap,Td Vaccine (1 - Tdap) [address] Colonography 1996 Cologuard (FIT-DNA) 1996 Colonoscopy 1996 Colorectal Cancer Screening 1996 Diabetes Screening 1996 Fecal Occult Blood 1996 Lipid Screening 1996 Sigmoidoscopy 1996 Shingrix Vaccine (1 of 2) 2001 Bone Density Screening 2016 Pneumococcal Vaccine: 50+ (2 of 2 - PCV) 06/26/2018 06/26/2017, 09/06/2016 Advance Directive Discussion 03/31/2024 Influenza Vaccine (#1) 2024 06/26/2017, 2015 RSV Vaccine (1 - 1-dose 75+ series) [address] [id number] [id number] MEDICARE [employer] MEDICARE [facility] Address: [address] [place] [address] Care Teams Crime Prevention Worker Relationship Specialty Start Date End Date Paolo Rai MD PCP - General Family Medicine 07/14/17
--- OUTSIDE RECORDS SUMMARY | 2024-12-29 09:06 | XMS_ITS | Patient Health Record ---
Author Organization [facility] in [place] Address [address] [place] [address] Care Team Providers Care Battery Hand Name Role Phone Fredi Chino Primary Care Provider [phone] Allergies Allergen (clinical drug ingredient) Drug/Non Drug Allergy documented on EMR Reaction Allergy Type Onset Date Status fluticasone / vilanterol Breo Ellipta mouth ulcers Drug Allergy Active Results Component Value Reference Range Notes COVID-19, Flu A+B IH Reviewed date:10/14/2024 03:08:09 PM Interpretation: Performing Lab: Notes/Report: COVID - FLU A - FLU B - Control + FREE T3 Reviewed date:01/05/2024 08:17:35 PM Interpretation: Performing Lab: Notes/Report: [facility] , Free T3 2.01 2.18-3.98 pg/mL Performing Lab: see note ML - [facility] LB LIPID PROFILE Reviewed date:01/05/2024 08:17:35 PM Interpretation: Performing Lab: Notes/Report: [facility] , Triglycerides 133 <=150 mg/dL Cholesterol 253 <=200 mg/dL HDL Cholesterol 75 40-60 mg/dL <40 mg/dl - HIGH CARDIOVASCULAR RISK > or =60 mg/dl - LOW CARDIOVASCULAR RISK LDL Cholesterol Calculated 152.0 160-189 mg/dl HIGH <100 mg/dl OPTIMAL 130-159 mg/dl BORDERLINE HIGH >190 mg/dl VERY HIGH 100-129 mg/dl NEAR OR ABOVE OPTIMAL VLDL CHOLESTEROL 26.6 Chol HDL Ratio 3.4 4.4 - 7.1 AVERAGE RISK 3.3 - 4.4 LOW RISK >11.0 HIGH RISK 7.1 - 11.0 MODERATE RISK Performing Lab: see note ML - [facility] LB PROF 14(COMP METB) Reviewed date:01/05/2024 08:17:35 PM Interpretation: Performing Lab: Notes/Report: [facility] , Sodium 140 136-145 mmol/L Potassium 4.2 3.5-5.1 mmol/L Chloride 104 98-107 mmol/L Carbon Dioxide 28.1 21.0-32.0 mmol/L Anion Gap 12.1 Glucose 110 74-106 mg/dL Blood Urea Nitrogen 18.0 7.0-18.0 mg/dL Creatinine 1.04 0.55-1.02 mg/dL Estimated GFR ( Pamela >60 >=60 mL/min/1.73m 2 Estimated GFR (Non- Lori 52 >=60 mL/min/1.73m 2 BUN Creatinine Ratio 17.3 Calcium 9.2 8.5-10.1 mg/dL Bilirubin Total 0.4 0.2-1.0 mg/dL Aspartate Amino Transferase 18 15-37 U/L Alanine Aminotransferase 18 14-59 U/L Alkaline Phosphatase 131 46-116 U/L Total Protein 7.1 6.4-8.2 g/dL Albumin Level 3.0 3.4-5.0 g/dL Globulin 4.1 Albumin Globulin Ratio 0.7 Performing Lab: see note ML - [facility] LB T4 Reviewed date:01/05/2024 08:17:35 PM Interpretation: Performing Lab: Notes/Report: [facility] , T4 Thyroxine 5.40 4.80-13.90 ug/dL Performing Lab: see note ML - [facility] LB TSH Reviewed date:01/05/2024 08:17:35 PM Interpretation: Performing Lab: Notes/Report: [facility] , Thyroid Stimulating Hormone 3.668 0.358-3.740 u IU/mL Performing Lab: see note ML - [facility] LB Occult Blood* Reviewed date:01/21/2024 06:34:26 PM Interpretation: Performing Lab: Notes/Report: [facility] , Occult Blood Negative Performing Lab: see note - [facility] LB Prothrombin Time INR Reviewed date:03/18/2024 02:50:12 PM Interpretation: Performing Lab: Notes/Report: [facility] , Prothrombin Time 10.2 9.0-11.6 sec INR 0.96 2.5-3.5 RECURRENT THROMBOSIS 2.0-3.0 CONDITIONS NOT LISTED BELOW DESIRED INR: 2.5-3.5 FOR PROSTHETIC HEART VALVE REPLACEMENT Performing Lab: see note ML - [facility] LB CA echo doppler complete Reviewed date:03/19/2024 04:29:46 PM Interpretation: Performing Lab: Notes/Report: Source Facility: [place] [address] Cardiology Report Signed Patient: JOSS WASHINGTON MR#: [id number] : 1950 Acct:[id number] Age/Sex: 73 / F ADM Date: 03/18/24 Loc: MS 215-[address]: Lawrence Rai M.D. Ordering Physician: Lawrence Rai M.D. Date of Service: 03/19/24 Procedure(s): CA echo doppler complete Accession Number(s): [id number] cc: Lawrence Rai M.D. Patient Name: JOSS WASHINGTON MR#: [id number] : 1950 Exam Date: 03/19/2024 Ordering Doctor: DR Lawrence Rai . ECHOCARDIOGRAM REPORT PROCEDURE: CA ECHO DOPPLER COMPLETE INDICATIONS: Dyspnea, vision issue, hypertension COMPARISON: None. DESCRIPTION: COMPLETE ECHOCARDIOGRAM Real-time transthoracic echocardiography with 2D, M-mode, spectral and color flow Doppler performed. QUALITY: Technical quality was good. LEFT VENTRICLE: Normal chamber size. Thickened septal wall. LV EF: Global left ventricular systolic function is normal; visually estimated ejection fraction is 60 to 65%. No obvious wall motion abnormalities. DIASTOLIC: Normal diastolic function. ATRIAL SEPTUM: Inadequately seen. LEFT ATRIUM: Normal chamber size. RIGHT ATRIUM: Normal chamber size. RIGHT VENTRICLE: Normal chamber size. TRICUSPID VALVE: Normal mobility and thickness. No stenosis with trivial regurgitation. Doppler studies reveal mildly (35-45) elevated right sided pressures. RVSP 35 mmHg MITRAL VALVE: Normal mobility and thickness. No evidence of mitral valve stenosis. There is no mitral annular calcification. Trivial mitral regurgitation. AORTIC VALVE: Normal trileaflet appearance. No visible sclerosis. Normal leaflet mobility. No evidence of aortic valve stenosis. No aortic regurgitation. AORTIC ROOT: Normal diameter and appearance. PULMONIC VALVE: Not well visualized. No regurgitation. PERICARDIUM: Anterior free space; trivial effusion versus fat pad IVC: Not well visualized. CONCLUSION: 1. Global left ventricular systolic function is normal; visually estimated ejection fraction is 60 to 65% 2. The right ventricle appears normal in size and systolic function 3. Normal diastolic function 4. The left atrium is normal in size 5. Mildly elevated right ventricular systolic pressure; RVSP 35 mmHg 6. No significant valvular abnormalities 7. Anterior free space; trivial effusion versus fat pad Adult Echocardiography Procedure Report Left Ventricle LVEDD (3.7 - 5.6 cm): 4.69 cm LVESD (2.2 - 4.0 cm): 3.36 cm LVIVS thickness (0.6 - 1.2 cm): 1.23 cm LVPW thickness (0.5 - 1.0 cm): 0.79 cm e': 0.08 m/s E - e': 9.77 LVOT Max Gradient: 2.77 mm[Hg] LVOT Area (cm2): 0.83 m/s Peak Velocity (LVOT): 0.83 m/s LVOT Diameter 2.02 cm Left Atrium LA Volume Index (2D A2C): 31.63 ml/m2 Left Atrium Systolic Dimension: 3.17 cm Mitral Valve MV E to A Ratio: 1.49 Mitral Valve A-Wave Peak Velocity: 0.54 m/s Mitral Valve E-Wave Peak Velocity: 0.81 m/s Right Ventricle Aorta AO Root Diam: 3.06 cm Aortic Valve AoV Area ([place]): 1.77 cm2, 1.77 cm2 Peak Velocity(Antegrade Flow): 1.51 m/s Peak Gradient(Antegrade Flow): 9.16 mm[Hg] Tricuspid Valve Peak Velocity (Regurgitant Flow): 2.82 m/s Pulmonic Valve Peak Velocity: 0.79 m/s Peak Gradient: 2.48 mm[Hg] Right Atrium Right Atrium Systolic Pressure: 51.34 ml, 51.34 ml Dictated by: Chad Treadwell M.D. on 03/19/2024 at 14:17 Approved by: Chad Treadwell M.D. on 03/19/2024 at 14:19 Dictated By: Chad Treadwell M.D. Signed By: 03/19/24 1421 DD/ 1419 TD/TT: Global Process Owner: ROSANNA holter monitor 7-15 days Reviewed date:04/08/2024 09:56:20 PM Interpretation: Performing Lab: Notes/Report: Source Facility: [place] [address] [place] [address] Cardiology Report Signed Patient: JOSS WASHINGTON MR#: [id number] : 1950 Acct:[id number] Age/Sex: 73 / F ADM Date: 03/18/24 Loc: MS 215-[address]: Lawrence Rai M.D. Ordering Physician: Lawrence Rai M.D. Date of Service: 03/19/24 Procedure(s): CA holter monitor 7-15 days Accession Number(s): [id number] cc: Lawrence Rai M.D. [facility] Test Date: 2024-04-08 Pat Name: JOSS WASHINGTON Department: Room: [facility] Gender: Female Sas Architect: : 1950 Requested By: LAWRENCE RAI Order Number: [id number] Reading MD: MARK SCHMID Interpretive Statements Predominant rhythm is sinus with average rate of 70 bpm TAchycardia - max rate of 157 bpm (PSVT) Bradycardia - min rate of 53 bpm Ventricular ectopy - 283 total, <1% burden - 280 PVC NSVT Patient triggered events: none Impression: Predominant rhythm is sinus with average rate of 70 bpm Fastest rate of 157 bpm (PSVT) and slowest rate of 53 bpm Ventricular ectopy - 280 PVC NSVT - 1 episode of 3 beat duration PSVT - 15 episodes with fastest rate of 157 bpm and longest episode of 12 beats Longest episode of sinus tachy is 3min 59sec w/ rates between 103-104 bpm Longest episoed of sinus [place] is 18min 14sec w/ rates between 53-57 bpm No atrial fibrillation No pauses Electronically Signed On 04-08-2024 21:11:03 EST by MARK SCHMID Dictated By: Mark Schmid D.O. Signed By: 04/08/24211004/08/242110 DD/ 4 TD/TT: Global Process Owner: LIPID PROFILE Reviewed date:05/15/2024 02:01:07 PM Interpretation: Performing Lab: Notes/Report: [facility] , Triglycerides 135 <=150 mg/dL Cholesterol 187 <=200 mg/dL HDL Cholesterol 76 40-60 mg/dL <40 mg/dl - HIGH CARDIOVASCULAR RISK > or =60 mg/dl - LOW CARDIOVASCULAR RISK LDL Cholesterol Calculated 84.0 100-129 mg/dl NEAR OR ABOVE OPTIMAL >190 mg/dl VERY HIGH <100 mg/dl OPTIMAL 160-189 mg/dl HIGH 130-159 mg/dl BORDERLINE HIGH VLDL CHOLESTEROL 27.0 Chol HDL Ratio 2.5 4.4 - 7.1 AVERAGE RISK 3.3 - 4.4 LOW RISK >11.0 HIGH RISK 7.1 - 11.0 MODERATE RISK Performing Lab: see note ML - [facility] MR head/brain wo/w con Reviewed date:06/15/2024 08:28:39 PM Interpretation: Performing Lab: Notes/Report: Source Facility: [place] [address] Magnetic Resonance Report Signed Patient: JOSS WASHINGTON MR#: [id number] : 1950 Acct:[id number] Age/Sex: 74 / F ADM Date: 06/15/24 Loc: MRI Attending Dr: Lawrence Rai M.D. Ordering Physician: Lawrence Rai M.D. Date of Service: 06/15/24 Procedure(s): MR head/brain wo/w con Accession Number(s): [id number] cc: Lawrence Rai M.D. [place] [address] Patient Name: JOSS WASHINGTON MRN: [id number] date: 1950 Sex: F Assigned Patient Location: MRI Current Patient Location: MRI Accession/Order Number: [id number] Exam Date: 06/15/2024 19:40 Report Date: 06/15/2024 19:50 At the request of: LAWRENCE RAI MD Procedure: MR head/brain wo/w con MRI BRAIN WITHOUT AND WITH INTRAVENOUS CONTRAST CLINICAL DATA: Angioma, abnormal CTA COMPARISON: CT head neck 03/18/2024 FINDINGS: No restricted diffusion. Ventricles and sulci normal in size and configuration for the patient's age. No shift of midline structure. Basal cisterns are patent. Major intracranial arterial vascular flow voids are preserved. Dedicated imaging of the sella was obtained. Partially empty sella turcica noted. Infundibulum is midline. Unremarkable enhancement of the pituitary gland Along the tuberculum sella, there is a meningioma noted measuring 6 x 5 x 9 mm. No additional foci of abnormal postcontrast enhancement elsewhere within brain. Mild paranasal sinus mucosal thickening. Polypoid changes left maxillary sinus. 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 No acute infiltrate process by MRI Impression dictated by: Finesse Horton M.D.06/15/2024 7:50 PM Dictation Location: [place] [address] Electronically authenticated by: [id number] Y Date: 06/15/2024 19:50 Dictated By: Finesse Horton M.D. Signed By: 06/15/241952 DD/ 49 TD/TT: Global Process Owner: TORRES T3 Reviewed date:08/19/2024 08:01:15 PM Interpretation: Performing Lab: Notes/Report: [facility] , Torres T3 2.44 2.18-3.98 pg/mL Performing Lab: see note ML - [facility] LB GLYCOHEMOGLOBIN A1C Reviewed date:08/19/2024 08:01:15 PM Interpretation: Performing Lab: Notes/Report: [facility] , Glycohemoglobin A1C 6.4 4.5-6.2 % ADA THERAPEUTIC TARGET < 7.0 ACTION SUGGESTED > 7.0 ADA RECOMMENDED LIMIT 4.0 - 6.0 Estimated Average Glucose 137 Performing Lab: see note ML - [facility] LB PROF 14(COMP METB) Reviewed date:08/19/2024 08:01:15 PM Interpretation: Performing Lab: Notes/Report: [facility] , Sodium 139 136-145 mmol/L Potassium 4.9 3.5-5.1 mmol/L Chloride 102 98-107 mmol/L Carbon Dioxide 29.3 21.0-32.0 mmol/L Anion Gap 12.6 Glucose 109 74-106 mg/dL Blood Urea Nitrogen 36.0 7.0-18.0 mg/dL Creatinine 1.28 0.55-1.02 mg/dL Estimated GFR ( Pamela 50 >=60 mL/min/1.73m 2 Estimated GFR (Non- Lori 41 >=60 mL/min/1.73m 2 BUN Creatinine Ratio 28.1 Calcium 9.6 8.5-10.1 mg/dL Bilirubin Total 0.4 0.2-1.0 mg/dL Aspartate Amino Transferase 14 15-37 U/L Alanine Aminotransferase 19 14-59 U/L Alkaline Phosphatase 115 46-116 U/L Total Protein 7.4 6.4-8.2 g/dL Albumin Level 3.0 3.4-5.0 g/dL Globulin 4.4 Albumin Globulin Ratio 0.7 Performing Lab: see note ML - [facility] LB T4 Reviewed date:08/19/2024 08:01:15 PM Interpretation: Performing Lab: Notes/Report: [facility] , T4 Thyroxine 6.60 4.80-13.90 ug/dL Performing Lab: see note ML - [facility] LB TSH Reviewed date:08/19/2024 08:01:15 PM Interpretation: Performing Lab: Notes/Report: [facility] , Thyroid Stimulating Hormone 4.143 0.358-3.740 u IU/mL Performing Lab: see note ML - [facility] LB INSULIN Reviewed date:08/21/2024 11:50:54 AM Interpretation: Performing Lab: Notes/Report: [facility] , Insulin 41.8 2.6-24.9 uIU/mL Performed at: [facility] [address] [id number] Cover Making Machine Operator: Dimitris Morales PhD, Phone: [phone] Performing Lab: see note - [facility] LB CREATININE Reviewed date:05/31/2024 09:17:54 PM Interpretation: Performing Lab: Notes/Report: [facility] , Creatinine 1.13 0.55-1.02 mg/dL Estimated GFR ( Pamela 57 >=60 mL/min/1.73m 2 Estimated GFR (Non- Lori 47 >=60 mL/min/1.73m 2 Performing Lab: see note ML - [facility] 30 day event monitor Reviewed date:05/23/2024 09:10:54 AM Interpretation: Performing Lab: Notes/Report: Source Facility: [facility] [place] [address] [place] [address] Cardiology Report Signed Patient: JOSS WASHINGTON MR#: [id number] : 1950 Acct:[id number] Age/Sex: 73 / F ADM Date: 04/13/24 Loc: CARD Attending Dr: Lawrence Rai M.D. Ordering Physician: Lawrence Rai M.D. Date of Service: 04/13/24 Procedure(s): RI 30 day event monitor Accession Number(s): [id number] cc: Lawrence Rai M.D. [facility] Test Date: 2024-05-20 Pat Name: JOSS WASHINGTON Department: Room: - Gender: Female Sas Architect: : 1950 Requested By: LAWRENCE RAI Order Number: [id number] Reading MD: MARK SCHMID Interpretive Statements Predominant rhythm is sinus with average rate of 69 bpm Tachycarid - max rate of 139 bpm Bradycardia - min rate of 52 bpm Ventricular ectopy - 2,186 episodes, <1% Patient triggered events: 1 Impression: Predominant rhythm is sinus with average rate of 69 bpm Fastest rate of 139 bpm and slowest rate of 52 bpm Ventricular ectopy - 2,186 episodes, <1% burden Longest episode of sinus tachycardia is 6min 21sec Longest episode of sinus bradycardia is 1hr 9min 21sec No atrial fibrillation No pauses Electronically Signed On 05-21-2024 17:56:09 EST by MARK SCHMID Dictated By: Mark Schmid D.O. Signed By: 05/21/24 1756 05/21/241755 DD/ 0821 TD/TT: Global Process Owner: ROSANNA echo limited Reviewed date:05/15/2024 02:01:07 PM Interpretation: Performing Lab: Notes/Report: Source Facility: [place] [address] [place] [address] Cardiology Report Signed Patient: JOSS WASHINGTON MR#: [id number] : 1950 Acct:[id number] Age/Sex: 73 / F ADM Date: 05/14/24 Loc: CARD Attending Dr: John Yin M.D. Ordering Physician: John Yin M.D. Date of Service: 05/14/24 Procedure(s): CA echo limited Accession Number(s): [id number] cc: Lawrence Rai M.D.; John Yin M.D. Patient Name: JOSS WASHINGTON MR#: [id number] : 1950 Exam Date: 05/14/2024 Ordering Doctor: DR. JOHN YIN M.D. ECHOCARDIOGRAM REPORT PROCEDURE: CA ECHO LIMITED INDICATIONS: Cardiac thrombus or embolic source suspected COMPARISON: None. DESCRIPTION: Limited ECHOCARDIOGRAM Real-time transthoracic echocardiography with 2D and M-mode performed. QUALITY: Technical quality was good. Limited echocardiogram per physician order. LEFT VENTRICLE: Normal chamber size. Normal left ventricular wall thickness. LV EF: Normal left ventricular ejection fraction, (>55%). DIASTOLIC: ATRIAL SEPTUM: Agitated saline contrast does not reveal an intra-cardiac shunt. LEFT ATRIUM: Normal chamber size. RIGHT ATRIUM: Normal chamber size. RIGHT VENTRICLE: Normal chamber size. TRICUSPID VALVE: Normal mobility and thickness. MITRAL VALVE: Normal mobility and thickness. There is no mitral annular calcification. AORTIC VALVE: Normal trileaflet appearance. No visible sclerosis. Normal leaflet mobility. AORTIC ROOT: Normal diameter and appearance. PULMONIC VALVE: Normal thickness and mobility. PERICARDIUM: No evidence of pericardial effusion. IVC: PLEURA: CONCLUSION: 1. Normal ventricular size and systolic function. LVEF is 60%. 2. Agitated saline contrast does not reveal an intra-cardiac shunt. 3. Limited study performed with no Doppler interrogation as requested. Adult Echocardiography Procedure Report Left Ventricle LVEDD (3.7 - 5.6 cm): 4.90 cm LVESD (2.2 - 4.0 cm): 2.69 cm LVIVS thickness (0.6 - 1.2 cm): 0.83 cm LVPW thickness (0.5 - 1.0 cm): 0.90 cm LVOT Diameter 2.07 cm Left Atrium LA Volume Index (2D A2C): 25.21 ml/m2 Left Atrium Systolic Dimension: 3.98 cm Mitral Valve Right Ventricle Aorta AO Root Diam: 3.39 cm Aortic Valve Tricuspid Valve Pulmonic Valve Right Atrium Right Atrium Systolic Pressure: 46.48 ml, 46.48 ml Dictated by: Singh Colbert M.D. on 05/14/2024 at 18:35 Approved by: Singh Colbert M.D. on 05/14/2024 at 18:37 Dictated By: SINGH COLBERT Signed By: 05/14/241837 DD/ 36 TD/TT: Global Process Owner: ALEX Reviewed date:05/15/2024 02:01:07 PM Interpretation: Performing Lab: Notes/Report: [facility] , Alanine Aminotransferase 22 14-59 U/L Performing Lab: see note ML - [facility] LB SGOT Reviewed date:05/15/2024 02:01:07 PM Interpretation: Performing Lab: Notes/Report: [facility] , Aspartate Amino Transferase 17 15-37 U/L Performing Lab: see note ML - [facility] LB CT stroke head/brain wo con Reviewed date:03/18/2024 02:50:12 PM Interpretation: Performing Lab: Notes/Report: Source Facility: [place] [address] [place] [address] CT Scan Report Signed Patient: JOSS WASHINGTON MR#: [id number] : 1950 Acct:[id number] Age/Sex: 73 / F ADM Date: 03/18/24 Loc: ER Attending Dr: Ordering Physician: Janet Lopes Date of Service: 03/18/24 Procedure(s): CT stroke head/brain wo con Accession Number(s): [id number] cc: Lawrence Rai M.D. [place] [address] Patient Name: JOSS WASHINGTON MRN: [id number] date: 1950 Sex: F Assigned Patient Location: ER Current Patient Location: ER Accession/Order Number: [id number] Exam Date: 03/18/2024 11:25 Report Date: 03/18/2024 11:41 At the request of: JANET LOPES Procedure: CT stroke head/brain wo con EXAM: CT stroke head/brain wo con HISTORY: TIA symptoms COMPARISON: None. TECHNIQUE: Axial noncontrast CT imaging of the head was performed with coronal and sagittal reformats. This CT exam was performed using one or more of the following dose reduction techniques: Automated exposure control, adjustment of the MA and/or kV according to patient size, or use of iterative reconstruction technique. FINDINGS: Calvarium/skull base: No evidence of acute fracture or destructive lesion. Paranasal sinuses: No air fluid levels. Opacification of a single posterior right ethmoid air cell. Partially visualized presumed mucosal retention cyst involving the posterior left maxillary sinus. Brain: No acute intracranial hemorrhage. No acute large vascular territory infarct. No mass lesion or mass effect. No hydrocephalus. CT/CT stroke head/brain wo con IMPRESSION: No acute large vascular territory infarct or acute intracranial hemorrhage. If there is clinical concern for acute ischemia recommend MRI brain for further evaluation. Electronically authenticated by: ELIAZAR MUSA Date: 03/18/2024 11:41 Dictated By: Eliazar Musa M.D. Signed By: 03/18/24 1144 DD/ 1141 TD/TT: Global Process Owner: CT angio head Reviewed date:03/18/2024 02:50:12 PM Interpretation: Performing Lab: Notes/Report: Source Facility: [place] [address] [place] [address] CT Scan Report Signed Patient: JOSS WASHINGTON MR#: [id number] : 1950 Acct:[id number] Age/Sex: 73 / F ADM Date: 03/18/24 Loc: ER Attending Dr: Ordering Physician: Janet Lopes Date of Service: 03/18/24 Procedure(s): CT angio head Accession Number(s): [id number] cc: Lawrence Rai M.D. [facility] [place] [id number] Patient Name: JOSS WASHINGTON MRN: [id number] date: 1950 Sex: F Assigned Patient Location: ER Current Patient Location: ER Accession/Order Number: [id number] Exam Date: 03/18/2024 12:50 Report Date: 03/18/2024 13:23 At the request of: JANET LOPES Procedure: CT angio head EXAM: CT angio head, CT angio neck HISTORY: TIA COMPARISON: Noncontrast CT head performed the same day and reported separately. TECHNIQUE: Postcontrast CTA imaging of the head and neck was performed with coronal and sagittal reformats. Maximum intensity projection reformats were performed on a separate workstation. NASCET criteria was utilized. This CT exam was performed using one or more of the following dose reduction techniques: Automated exposure control, adjustment of the MA and/or kV according to patient size, or use of iterative reconstruction technique. FINDINGS: Aortic arch: Imaged portion shows no evidence of aneurysm. No significant stenosis of the major origins of the major arch vessels. Right carotid system: No evidence of significant (50% or greater) stenosis or occlusion. Left carotid system: No evidence of significant (50% or greater) stenosis or occlusion. Vertebral arteries: Mild left vertebral artery dominance. No evidence of significant (50% or greater) stenosis or occlusion. Anterior circulation: No evidence of aneurysm, significant stenosis, or occlusion. Vertebrobasilar system: No evidence of aneurysm, significant stenosis, or occlusion. Venous sinuses: Grossly patent. 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 This appears separate from the adjacent cavernous internal carotid arteries and is not thought to represent an aneurysm.. Visualized portion of of the lungs are clear. Inferior left maxillary sinus mucosal retention cyst with moderate mucosal thickening and associated supernumerary tooth extending into the inferior left maxillary sinus. Mild mucosal thickening of the right maxillary sinus and right ethmoid air cells. CT/CT angio head IMPRESSION: 1. No significant stenosis, large vessel occlusion or aneurysm involving the neck or intracranial arterial vasculature. 2. 11 mm sella turcica and angioma anteriorly better evaluated on the current study secondary postcontrast imaging. No substantial mass effect. If not previously evaluated elsewhere consider MR brain with and without contrast with thin section imaging through the sella/skull base for further evaluation. Electronically authenticated by: ELIAZAR MUSA Date: 03/18/2024 13:23 Dictated By: Eliazar Musa M.D. Signed By: 03/18/24 1326 DD/ 1323 TD/TT: Global Process Owner: CT angio neck Reviewed date:03/18/2024 02:50:12 PM Interpretation: Performing Lab: Notes/Report: Source Facility: [place] [address] CT Scan Report Signed Patient: JOSS WASHINGTON MR#: [id number] : 1950 Acct:[id number] Age/Sex: 73 / F ADM Date: 03/18/24 Loc: ER Attending Dr: Ordering Physician: Janet Lopes Date of Service: 03/18/24 Procedure(s): CT angio neck Accession Number(s): [id number] cc: Lawrence Rai M.D. [place] [address] Patient Name: JOSS WASHINGTON MRN: [id number] date: 1950 Sex: F Assigned Patient Location: ER Current Patient Location: ER Accession/Order Number: [id number] Exam Date: 03/18/2024 12:50 Report Date: 03/18/2024 13:23 At the request of: JANET LOPES Procedure: CT angio neck EXAM: CT angio head, CT angio neck HISTORY: TIA COMPARISON: Noncontrast CT head performed the same day and reported separately. TECHNIQUE: Postcontrast CTA imaging of the head and neck was performed with coronal and sagittal reformats. Maximum intensity projection reformats were performed on a separate workstation. NASCET criteria was utilized. This CT exam was performed using one or more of the following dose reduction techniques: Automated exposure control, adjustment of the MA and/or kV according to patient size, or use of iterative reconstruction technique. FINDINGS: Aortic arch: Imaged portion shows no evidence of aneurysm. No significant stenosis of the major origins of the major arch vessels. Right carotid system: No evidence of significant (50% or greater) stenosis or occlusion. Left carotid system: No evidence of significant (50% or greater) stenosis or occlusion. Vertebral arteries: Mild left vertebral artery dominance. No evidence of significant (50% or greater) stenosis or occlusion. Anterior circulation: No evidence of aneurysm, significant stenosis, or occlusion. Vertebrobasilar system: No evidence of aneurysm, significant stenosis, or occlusion. Venous sinuses: Grossly patent. 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 This appears separate from the adjacent cavernous internal carotid arteries and is not thought to represent an aneurysm.. Visualized portion of of the lungs are clear. Inferior left maxillary sinus mucosal retention cyst with moderate mucosal thickening and associated supernumerary tooth extending into the inferior left maxillary sinus. Mild mucosal thickening of the right maxillary sinus and right ethmoid air cells. CT/CT angio neck IMPRESSION: 1. No significant stenosis, large vessel occlusion or aneurysm involving the neck or intracranial arterial vasculature. 2. 11 mm sella turcica and angioma anteriorly better evaluated on the current study secondary postcontrast imaging. No substantial mass effect. If not previously evaluated elsewhere consider MR brain with and without contrast with thin section imaging through the sella/skull base for further evaluation. Electronically authenticated by: ELIAZAR MUSA Date: 03/18/2024 13:23 Dictated By: Eliazar Musa M.D. Signed By: 03/18/24 1326 DD/ 1323 TD/TT: Global Process Owner: ECG 12 lead Reviewed date:03/21/2024 02:14:38 PM Interpretation: Performing Lab: Notes/Report: Source Facility: [place] [id number] [address] [place] [id number] Electrocardiograph Report Signed Patient: JOSS WASHINGTON MR#: [id number] : 1950 Acct:[id number] Age/Sex: 73 / F ADM Date: 03/18/24 Loc: MS 215-[address]: Lawrence Rai M.D. Ordering Physician: Janet Lopes Date of Service: 03/18/24 Procedure(s): ECG 12 lead Accession Number(s): [id number] cc: [facility] Test Date: 2024-03-18 Pat Name: JOSS WASHINGTON Department: Room: - Gender: Female Sas Architect: : 1950 Requested By: LAWRENCE RAI Order Number: [id number] Reading MD: LAWRENCE RAI Measurements Intervals [place] Rate: 61 P: 62 MI: 130 QRS: 36 QRSD: 88 T: -30 QT: 404 QTc: 407 Interpretive Statements 1100 Sinus rhythm [address] depression [address] [place] abnormality 9130 borderline ECG Compared to ECG 11/02/2018 17:24:42 No significant changes Electronically Signed On 03-20-2024 7:52:44 EST by LAWRENCE RAI Dictated By: Lawrence Rai M.D. Signed By: 03/20/24 0753 DD/ 1153 TD/TT: Global Process Owner: PROF Park(COMP METB) Reviewed date:03/18/2024 02:50:12 PM Interpretation: Performing Lab: Notes/Report: [facility] , Sodium 143 136-145 mmol/L Potassium 3.8 3.5-5.1 mmol/L Chloride 105 98-107 mmol/L Carbon Dioxide 30.5 21.0-32.0 mmol/L Anion Gap 11.3 Glucose 84 74-106 mg/dL Blood Urea Nitrogen 16.0 7.0-18.0 mg/dL Creatinine 0.97 0.55-1.02 mg/dL Estimated GFR ( Pamela >60 >=60 mL/min/1.73m 2 Estimated GFR (Non- Lori 56 >=60 mL/min/1.73m 2 BUN Creatinine Ratio 16.5 Calcium 9.1 8.5-10.1 mg/dL Bilirubin Total 0.3 0.2-1.0 mg/dL Aspartate Amino Transferase 14 15-37 U/L Alanine Aminotransferase 20 14-59 U/L Alkaline Phosphatase 135 46-116 U/L Total Protein 7.3 6.4-8.2 g/dL Albumin Level 3.1 3.4-5.0 g/dL Globulin 4.2 Albumin Globulin Ratio 0.7 Performing Lab: see note ML - [facility] LB CBC AUTO DIFF Reviewed date:03/18/2024 02:50:12 PM Interpretation: Performing Lab: Notes/Report: [facility] , White Blood Count 8.6 4.0-11.0 10 3/uL Red Blood Count 4.10 4.20-5.40 10 6/uL Hemoglobin 12.3 12.0-16.0 g/dL Hematocrit 39.1 36.0-48.0 % Mean Corpuscular Volume 95.4 81.0-99.0 fL Mean Corpuscular Hemoglobin 30.0 26.7-34.0 pg Mean Corpuscular HGB Conc 31.5 29.9-35.2 g/dL Red Cell Distribution Width 14.3 11.0-15.0 % Platelet Count 292 150-450 10 3/uL Mean Platelet Volume 9.2 9.5-13.5 fL Neutrophils Percent Auto 64.4 43.0-75.0 % Lymphocytes Percent Auto 22.4 20.5-60.0 % Monocytes Percent Auto 8.5 1.7-12.0 % Eosinophils Percent Auto 3.3 0.9-7.0 % Basophils Percent Auto 0.6 0.2-2.0 % Immature Granulocytes Pct Auto 0.8 0.0-0.5 % Neutrophils Absolute Auto 5.6 1.4-6.5 10 3/uL Lymphocytes Absolute Auto 1.9 1.2-3.8 10 3/uL Monocytes Absolute Auto 0.7 0.3-0.8 10 3/uL Eosinophils Absolute Auto 0.3 0.0-0.7 10 3/uL Basophils Absolute Auto 0.1 0.0-0.1 10 3/uL Immature Granulocytes Abs Auto 0.07 0.00-0.03 10 3/uL Performing Lab: see note ML - [facility] LB VITAMIN D 25 [place] Reviewed date:01/05/2024 08:17:35 PM Interpretation: Performing Lab: Notes/Report: [facility] , Vitamin D 17.2 30-100 ng/mL Vit D sufficient <20 ng/mL Vit D deficient >100 ng/mL Potential Toxicity 20-<30 ng/mL Vit D insufficient Performing Lab: see note ML - [facility] CBC AUTO DIFF Reviewed date:01/05/2024 08:17:35 PM Interpretation: Performing Lab: Notes/Report: [facility] , White Blood Count 6.5 4.0-11.0 10 3/uL Red Blood Count 4.13 4.20-5.40 10 6/uL Hemoglobin 12.4 12.0-16.0 g/dL Hematocrit 38.7 36.0-48.0 % Mean Corpuscular Volume 93.7 81.0-99.0 fL Mean Corpuscular Hemoglobin 30.0 26.7-34.0 pg Mean Corpuscular HGB Conc 32.0 29.9-35.2 g/dL Red Cell Distribution Width 14.4 11.0-15.0 % Platelet Count 278 150-450 10 3/uL Mean Platelet Volume 9.1 9.5-13.5 fL Neutrophils Percent Auto 65.3 43.0-75.0 % Lymphocytes Percent Auto 22.7 20.5-60.0 % Monocytes Percent Auto 6.9 1.7-12.0 % Eosinophils Percent Auto 3.4 0.9-7.0 % Basophils Percent Auto 0.6 0.2-2.0 % Immature Granulocytes Pct Auto 1.1 0.0-0.5 % Neutrophils Absolute Auto 4.3 1.4-6.5 10 3/uL Lymphocytes Absolute Auto 1.5 1.2-3.8 10 3/uL Monocytes Absolute Auto 0.5 0.3-0.8 10 3/uL Eosinophils Absolute Auto 0.2 0.0-0.7 10 3/uL Basophils Absolute Auto 0.0 0.0-0.1 10 3/uL Immature Granulocytes Abs Auto 0.07 0.00-0.03 10 3/uL Performing Lab: see note ML - [facility] LB GLYCOHEMOGLOBIN A1C Reviewed date:01/05/2024 08:17:35 PM Interpretation: Performing Lab: Notes/Report: [facility] , Glycohemoglobin A1C 6.0 4.5-6.2 % ADA RECOMMENDED LIMIT 4.0 - 6.0 > 7.0 ACTION SUGGESTED ADA THERAPEUTIC TARGET < 7.0 Estimated Average Glucose 126 Performing Lab: see note ML - [facility] LB TSH Reviewed date:08/31/2024 04:15:45 PM Interpretation: Performing Lab: Notes/Report: [facility] , Thyroid Stimulating Hormone 3.549 0.358-3.740 u IU/mL Performing Lab: see note ML - [facility] LB T4 Reviewed date:08/31/2024 04:15:45 PM Interpretation: Performing Lab: Notes/Report: [facility] , T4 Thyroxine 4.90 4.80-13.90 ug/dL Performing Lab: see note ML - [facility] PROF CHEM 8 (BAS METB) Reviewed date:08/31/2024 04:15:45 PM Interpretation: Performing Lab: Notes/Report: [facility] , Sodium 142 136-145 mmol/L Potassium 5.4 3.5-5.1 mmol/L Chloride 106 98-107 mmol/L Carbon Dioxide 29.9 21.0-32.0 mmol/L Anion Gap 11.5 Glucose 102 74-106 mg/dL Blood Urea Nitrogen 31.0 7.0-18.0 mg/dL Creatinine 1.09 0.55-1.02 mg/dL Estimated GFR ( Pamela 60 >=60 mL/min/1.73m 2 Estimated GFR (Non- Lori 49 >=60 mL/min/1.73m 2 BUN Creatinine Ratio 28.4 Calcium 9.4 8.5-10.1 mg/dL Performing Lab: see note ML - [facility] FREE T3 Reviewed date:08/31/2024 04:15:45 PM Interpretation: Performing Lab: Notes/Report: [facility] , Free T3 1.50 2.18-3.98 pg/mL Performing Lab: see note ML - [facility] LB Reason For Referral Diagnosis 1 Chest pain (R07.9) Referral Organization [facility] Referring Provider First Name Chino Referring Provider Last Name Fredi Referring Provider Speciality [facility] icine Referred Provider [facility]erred Provider Specialty Cardiology Referral Priority Routine Diagnosis 1 Otitis media, left ( H66.92) Referral Organization [facility] Medicine Referring Provider First Name Chino Referring Provider Last Name Fredi Referring Provider Speciality [facility] tuyet Referred Provider Maddi Simon Referred Provider Specialty Otolaryngolo gy Referral Priority Routine Medications Medication SIG (Take, Route, Frequency, Duration) Notes Start Date End Date Status Spironolactone 50 MG TAKE 1 TABLET BY MO UTH IN THE MORNING Oral; Duration: 90 Days Active Spiriva Respimat 1.25 MCG/ACT 2 puffs Inhalation Once a day 01/06/2024 Active Azelastine HCl 0.05 % 1 drop into affect ed eye Ophthalmic Twice a day Active Simvastatin 20 MG 1 tablet Orally ever y evening; Duration: 90 days 01/06/2024 Active Lisinopril 40 MG 1 tablet Orally Once a day; Duration: 90 days Active Lac-Hydrin Five 5 % 1 application Traditional Chinese Herbalist ally Twice a day 09/28/2024 Active levoFLOXacin 750 MG 1 tablet Orally Once a day; Duration: 10 day(s) 12/22/2024 Active hydrOXYzine HCl 25 MG 1 tablet at bedtim e as needed Orally Once a day Active predniSONE 10 MG 5 tabs per [...] a day; Duration: 7 days 10/14/2024 Active dilTIAZem HCl 120 MG 1 capsule Orally bi d; Duration: 90 days Active Daypro 600 MG 2 tablets Orally darlene ly; Duration: 20 days 06/21/2024 Active Ventolin HFA 108 (90 Base) MCG/ACT 2 puff as needed Inhalation every 4 hrs 10/18/2024 Active Clopidogrel Bisulfate 75 MG 1 tablet Ora lly Once a day; Duration: 90 days Active Valium 10 MG 1 tablet as needed Orally once about 1 hour before procedure; Duration: 1 days 12/22/2024 Active Cholecalciferol 50 MCG (1999 UT) 1 capsule Orally Once a day OTC 01/06/2024 Active tiZANidine HCl 4 MG 2 tabs Orally qhs; Duration: 30 days 06/21/2024 Active Immunizations Vaccine Route Administration Date Status Comme nts Arexvy Unknown 03/07/2023 Administered Flu, (80420) -historic- Whole Unknown 01/14/2016 Administered Flu, Fluad (58784) 65 yrs and older, single-dose syringe (1930-5954) Unknown 01/03/2021 Administered Flu, Fluad (26507) 65 yrs and older, single-dose syringe (8432-4478) IM Intramuscular 12/31/2023 Administered Flu, Fluad (89747) 65 yrs+, single-dose syringe (8363-8751) Unknown 02/18/2022 Administered Flu, Fluad (44541) 65 yrs+, single-dose syringe (5398-1631) IM Intramuscular 02/03/2023 Administered Pneumococcal (Pneumovax 23) Unknown 09/06/2016 Administered Pneumococcal (Pneumovax 23) Unknown 06/26/2017 Administered Social History Tobacco Use: Social History Observation Description Date Details (start date - stop date) Never Smoker NA - NA Tobacco Use/Smoking Question Answer Notes Patient is a nonsmoker Alcohol Screen (Audit-C) Question Answer Notes Did you have a drink containing alcohol in the p ast year? No Points 0 Interpretation Negative AUDIT-C (Standard) Question Answer Notes Did you have a drink containing alcohol in the p ast year? No Points 0 Interpretation Negative Problems Problem Type SNOMED Code ICD Code Onset Dates Problem Status W/U Status Risk Notes Problem Morbid obesity (disorder) (397133778) Morbid (severe) obesity due to excess calories (E66.01) Active confirmed Problem Overweight (768404628) Overweight (E66.3) Active confirmed Problem Phlebitis and thrombophlebitis of unspecified deep vessels of unspecified lower extremity (I80.209) Active confirmed Problem Spasm of back muscle s (057009792) Muscle spasm of back (M62.830) Active confirmed Problem Chest pain (53964444) Chest pain (R07.9) Active confirmed Problem Hyperlipidaemia (06744515) Hyperlipemia (E78.5) Active confirmed Problem Hypertension (31672759) Hypertension (I10) Active confirmed Problem Asthma (430390327) Asthma (J45.909) Active conf irmed Problem Hypothyroidism (26219145) Hypothyroidism (E03.9) Active confirmed Problem Carpal tunnel syndrome (99142724) Carpal tunnel syndrome (G56.00) Active confirmed Problem Neck pain (45377971) Neck pain (M54.2) Active c onfirmed Problem Eczema (20857423) Eczema (L30.9) Active confirm ed Problem Ankle pain (233715362) Ankle pain (M25.579) Active confirmed Problem Transient ischemic attack (708332804) TIA (transient ischemic attack) (G45.9) Active confirmed Problem Acute bronchitis (44675436) Acute bronchitis (J20.9) Active confirmed Problem Well adult (593322561) Well adult (Z00.00) Active confirmed Problem Seasonal allergic rhinitis (142927913) Seasonal allergic rhinitis (J30.2) Active confirmed Problem Diverticulitis (88422961) Diverticulitis (K57.92) Active confirmed Problem Chronic fatigue syndrome (16021090) Chronic fatigue syndrome (R53.82) Active confirmed Problem Carcinoma in situ of breast (267211816) 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) Active confirmed Problem Lesion of ulnar nerv e (969196060) Ulnar nerve entrapment, 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) Active confirmed Problem Body mass index 40+ - severely obese (448122108) BMI 50.0-59.9, adult (Z68.43) Active confirmed Problem Otitis media (64003855) Otitis media, left (H66.92) Active confirmed Problem Benign neoplasm of meninges (696641480) Benign neoplasm of meninges (D32.9) Active confirmed Problem Shoulder impingement syndrome (988185544) Shoulder impingement syndrome (M75.40) Active confirmed Problem Transient ischemic attack (disorder) (944575055) Brain TIA (G45.9) Active confirmed Problem Fibromyositis (36831576) Fibromyositis (M79.7) Active confirmed Problem Type II diabetes mellitus without complication (383911702) Diabetes mellitus type 2, diet-controlled (E11.9) Active confirmed Problem Essential hypertension (39329106) BP (high blood pressure) (I10) Active confirmed Problem Hypercholesterolemia (08852739) Hypercholesterolemia (E78.00) Active confirmed Problem Mixed anxiety and depressive disorder (989583372) Anxiety and depression (F41.8) Active confirmed Problem Edema of left lower leg (752487575) Edema of left lower leg (R60.0) Active confirmed Problem Low back pain (141445294) Low back pain, unspecified (M54.50) Active confirmed Vital Signs Heart Rate 128 /min 10/18/2024 Temperature 98.2 degrees Fahrenheit 10/18/2024 Oximetry 93 % 10/18/2024 Blood pressure diastolic 84 mm Hg 12/22/2024 Height 63 in 12/22/2024 Blood pressure systolic 132 mm Hg 12/22/2024 Weight 301.2 lbs 12/22/2024 BMI 53.35 kg/m2 12/22/2024 Procedures Procedure Date Ordered Date Performed Result Body Sit e Holter Monitor - 24 hrs 04/08/2024 N/A Encounters Encounter Location Date Provider Diagnosis [facility] [address] [place] [address] 12/22/2024 Chino Hoy Benign neoplasm of m eninges D32.9 [facility] [address] [place] [place] [address] 12/24/2024 Chino Hoy Otitis media, left H 66.92 [facility] [address] [place] [address] 08/11/2024 Chino y [facility] [address] [place] [address] 08/19/2024 Chino Hoy Acute kidney injury N17.9 and Hypothyroid E03.9 [facility] [address] [place] [address] 08/21/2024 Chino Hoy [facility] [address] [place] [facility] [place] [address] 08/31/2024 Chino y [facility] [address] [place] [address] 09/30/2024 Chino Hoy [facility] [address] [place] [address] 10/18/2024 Chino Hoy [facility] [address] [place] [place] [address] 05/20/2024 Chino Hoy [facility] [address] [place] [address] 05/23/2024 Chino Rai [facility] [address] [place] [address] 05/24/2024 Chino Rai Encounter for other preprocedural examination Z01.818 [facility] [address] [facility] [place] [address] 05/31/2024 Chino Rai [facility] [address] [facility] [place] [address] 06/15/2024 Chino Rai Benign neoplasm of m eninges D32.9 [facility] [address] [facility] [place] [address] 07/01/2024 Chino Rai [facility] [address] [facility] [place] [address] 03/19/2024 Chino Ria [facility] [address] [facility] [place] [address] 04/01/2024 Chino Rai [facility] [address] [facility] [place] [address] 04/08/2024 Chino Rai Chest pain R07.9 [facility] [address] [facility] [place] [address] 04/12/2024 Chino Rai [facility] [address] [facility] [place] [address] 04/14/2024 Chino Rai [facility] [address] [facility] [place] [address] 05/19/2024 Chino Rai Angioma D18.00 [facility] [address] [facility] [place] [address] 12/31/2023 Chino Rai Encounter for Medica re annual wellness exam Z00.00 [facility] [address] [facility] [place] [address] 01/05/2024 Chino Rai Hypothyroidism E03.9 and Hypercholesterolemia E78.00 [facility] [address] [facility] [place] [address] 01/27/2024 Chino Hoy [facility] [address] [place] [address] 12/31/2023 Chino Hoy Encounter for Medica re annual wellness exam Z00.00 and Encounter for immunization Z23 [facility] [address] [place] [address] 06/21/2024 Chino Hoy Neck pain M54.[address] [address] 03/26/2024 Chino Hoy TIA (transient ische pablo attack) G45.9 ; Diabetes mellitus type 2, diet-controlled E11.9 ; Anxiety and depression F41.8 and Hypertension I10 [address] [place] [address] 08/11/2024 Chino Hoy Morbid (severe) obes ity due to excess calories E66.01 ; Hypertension I10 and Chronic fatigue syndrome R53.82 [place] [address] [place] [address] 08/20/2024 Chino Hoy Acute bronchitis, un specified organism J20.9 [place] [address] [place] [address] 09/28/2024 Chino Hoy Otitis media, left H 66.92 [place] [address] [place] [address] 10/12/2024 Chino Hoy Acute bronchitis, un specified organism J20.[address] [place] [address] 10/14/2024 Chino Hoy Acute bronchitis, un specified organism J20.9 [place] [address] [place] [address] 10/18/2024 Chino Hoy Acute bronchitis J20 .[address] [place] [address] 12/22/2024 Chino Hoy Acute bronchitis, un specified organism J20.9 Assessments Encounter Date Diagnosis (ICD Code) Assessment Notes Treatment Notes Treatment Clinical Notes Section Notes 08/20/2024 Acute bronchitis, unspecified organism (ICD-10 - J20.9) Rest and drink more liquids, especially water. You may use a humidifier or vaporizer to help keep the drainage moist. Gjbc-cba-dybeupg Nasal Saline may help the stuffy and runny nose. Use Ibuprofen and or Tylenol as needed for fever, chills, body aches or pain. Children 5 years old should not be given kppt-cek-pzvpspu cough and cold medications such as guaifenesin and dextromethorphan. If you're over age 5, you may try stqg-ngj-azqwjeg cold medications such as guaifenesin and dextromethorphan, [...] to the emergency room or call 911 09/28/2024 Otitis media, left (ICD-10 - H66.92) 10/12/2024 Acute bronchitis, unspecified organism (ICD-10 - J20.9) Rest and drink more liquids, especially water. You may use a humidifier or vaporizer to help keep the drainage moist. Fzbz-pxp-drwqqzn Nasal Saline may help the stuffy and runny nose. Use Ibuprofen and or Tylenol as needed for fever, chills, body aches or pain. Children 5 years old should not be given wlen-uis-olsxput cough and cold medications such as guaifenesin and dextromethorphan. If you're over age 5, you may try wwmm-lyk-gibrgye cold medications such as guaifenesin and dextromethorphan, [...] to the emergency room or call 911 10/14/2024 Acute bronchitis, unspecified organism (ICD-10 - J20.9) Rest and drink more liquids, especially water. You may use a humidifier or vaporizer to help keep the drainage moist. Tbmp-ztp-zauxkzs Nasal Saline may help the stuffy and runny nose. Use Ibuprofen and or Tylenol as needed for fever, chills, body aches or pain. Children 5 years old should not be given jgay-xop-gvzvlxq cough and cold medications such as guaifenesin and dextromethorphan. If you're over age 5, you may try onby-zrk-hqihcea cold medications such as guaifenesin and dextromethorphan, [...] to the emergency room or call 911 10/18/2024 Acute bronchitis (ICD-10 - J20.9) 12/22/2024 Acute bronchitis, unspecified organism (ICD-10 - J20.9) Rest and drink more liquids, especially water. You may use a humidifier or vaporizer to help keep the drainage moist. Gpey-tgm-jcmbkcz Nasal Saline may help the stuffy and runny nose. Use Ibuprofen and or Tylenol as needed for fever, chills, body aches or pain. Children 5 years old should not be given uklk-gwx-zgrcvmv cough and cold medications such as guaifenesin and dextromethorphan. If you're over age 5, you may try npeq-rxk-pwxiche cold medications such as guaifenesin and dextromethorphan, [...] to the emergency room or call 911 12/31/2023 Encounter for Medica re annual wellness exam (ICD-10 - Z00.00) 01/05/2024 Hypothyroidism (ICD- 10 - E03.9) 01/05/2024 Hypercholesterolemia (ICD-10 - E78.00) 04/08/2024 Chest pain (ICD-10 - R07.9) 05/19/2024 Angioma (ICD-10 - D18.00) 05/24/2024 Encounter for other preprocedural examination (ICD-10 - Z01.818) 06/15/2024 Benign neoplasm of meninges (ICD-10 - D32.9) 08/19/2024 Acute kidney injury (ICD-10 - N17.9) 08/19/2024 Hypothyroid (ICD-10 - E03.9) 12/22/2024 Benign neoplasm of meninges (ICD-10 - D32.9) 12/24/2024 Otitis media, left (ICD-10 - H66.92) 12/31/2023 Encounter for Medica re annual wellness exam (ICD-10 - Z00.00) patient presents to office for a subsequent medicare wellness appointment. Spent a total of 20 minutes with the patient. Completed a memory slums test patient had every question correct and answered quickly, vision test completed, patient scored above 20/20, no safety concerns. Patient declined a dexa study and colonoscopy but did request yearly labs 03/26/2024 TIA (transient ischemic attack) (ICD-10 - G45.9) now on plavvix and asa - holter pedning 03/26/2024 Diabetes mellitus ty pe 2, diet-controlled (ICD-10 - E11.9) 06/21/2024 Neck pain (ICD-10 - M54.2) 08/11/2024 Morbid (severe) obesity due to excess calories (ICD-10 - E66.01) 08/11/2024 Hypertension (ICD-10 - I10) 08/11/2024 Chronic fatigue syndrome (ICD-10 - R53.82) 03/26/2024 Anxiety and depressi on (ICD-10 - F41.8) 12/31/2023 Encounter for immunization (ICD-10 - Z23) patient presents to office for a subsequent medicare wellness appointment. Spent a total of 20 minutes with the patient. Completed a memory slums test patient had every question correct and answered quickly, vision test completed, patient scored above 20/20, no safety concerns. Patient declined a dexa study and colonoscopy but did request yearly labs 03/26/2024 Hypertension (ICD-10 - I10) Plan Of Treatment Pending Test Test Name Order Date Exercise Stress Nuclear Test 09/20/2022 CMP (COMPLETE METABOLIC PANEL) 3 US Breast Limited LT 10/07/2022 T3 FREE, T4 FREE and TSH 03/26/2023 T3 FREE, T4 FREE and TSH 01/05/2024 BMP w/GFR 08/19/2024 FECAL OCCULT BLOOD 03/26/2023 Holter Monitor - 24 hrs 04/08/2024 CREATININE 05/24/2024 COMPREHENSIVE METABOLIC PROFILE WITH GFR 12/31/2023 OCCULT BLOOD, FECAL, IMMUNOASSAY 024 CBC W/AUTO DIFF 12/31/2023 GLYCOHEMOGLOBIN A1C 03/28/2023 GLYCOHEMOGLOBIN A1C 08/11/2024 INSULIN 08/11/2024 LIPID PROFILE 01/05/2024 LIVER PROFILE 01/05/2024 PROF 14(COMP METB) 08/11/2024 THYROID PROFILE WITH TSH 03/28/2023 MG MAMM DX 3D LT CAD 10/07/2022 XR CHEST 2 V 10/14/2024 THYROID PANEL (T4/TSH/FREE T3) 5 THYROID PANEL (T4/TSH/FREE T3) 4 THYROID PANEL (T4/TSH/FREE T3) 5 Vitamin D 03/26/2023 Vitamin D 12/31/2023 Lipid Panel 12/31/2023 MRI BRAIN W WO CONTRAST 05/19/2024 MRI Brain w/o contrast 12/22/2024 Insurance Providers Payer Name Payer Address Payer Phone Subscriber Number Group Number Insured Name Patient Relationship to Insured Coverage Start Date Coverage End Date MEDICARE RAILROAD [address] [address] [place], [place] [id number] Joss [place] Self - patient is the insured 7 [employer] 8 MEDICARE SUPP CLAIM DEPT [address] [place] [id number] PLAN G YakovJoss Self - patient is the insured 4 Medications Administered Medication Instructions Date of Administration Dosage Notes Dexamethasone, 4mg/mL 10/14/2024 12 mg Dexamethasone, 4mg/mL 10/18/2024 12 mg Ketorolac Tromethamine 06/21/2024 60 mg Triamcinolone 40 mg/ml 06/21/2024 80 mg Triamcinolone 40 mg/ml 08/20/2024 80 mg Medical (General) History Medical History History ICD Code Shoulder impingement syndrome M75.40 Muscle spasm of back M62.830 Otitis media, left H66.92 Overweight E66.3 Low back pain, unspecified M54.50 Well adult Z00.00 Ankle pain M25.579 Ductal carcinoma in situ (DCIS) of right breast D05.11 Edema of left lower leg R60.0 BMI 50.0-59.9, adult Z68.43 Morbid (severe) obesity due to excess ca lories E66.01 Carpal tunnel syndrome G56.00 Ulnar nerve entrapment, right G56.21 Hypertension I10 Phlebitis and thrombophlebit is of unspecified deep vessels of unspecified lower extremity I80.209 Fibromyositis M79.7 Anxiety and depression F41.8 Chronic fatigue syndrome R53.82 Diverticulitis K57.92 Eczema L30.9 Seasonal allergic rhinitis J30.2 Diabetes mellitus type 2, diet-controlle d E11.9 insulin resistance Surgical History Surgery Date(Month/Year) Hysterectomy Tonsillectomy Rotator Cuff Repair Cholecystectomy Shoulder Decompression, Right Hernia Repair Lumpectomy, rt breast Hospitalization History Reason Date(Month/Year) Vision changes 03/23
--- OUTSIDE RECORDS SUMMARY | 2024-12-29 09:06 | XMS_ITS ---
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 Past Treatment and Therapy Plans No past plan information found. Treatment Summaries Ductal carcinoma in situ (DCIS) of right breast* Treatment Summary and Survivorship Care Plan for Breast Cancer Provided by: Emily Block APRN.CNP General Information Patient Name: Charlee Nagy Patient : 1950 Health Care Providers Primary Care Provider: Dr. Paolo Rai Surgeon: Dr. Orlin Schmitz Radiation Oncologist: Dr. Farheen Cronin Medical Oncologist: Dr. Harry Peterson Other Providers: Emily Block APRN.COMMERCIAL TRAILER TRUCK DRIVER Treatment Summary Diagnosis Cancer Type/Histology Subtype: Right Breast Cancer- Upper inner quadrant Diagnosis Date (year): July 04, 2017 Receptors: Estrogen positive and Progesterone positive Stage: Not applicable 0 (Tis Nx M0) Treatment Completed Surgery: Yes Surgery Date(s) (year): July 04, 2017 Surgical procedure/findings: Lumpectomy; Partial mastectomy Lymph node removal: No Radiation: Yes Body area treated: Right breast End Date (year): October 15, 2017 (August 27, 2017 through October 15, 2017) Right breast 28 fractions received 5,040 cGy Boost tumor bed 6 fractions received 1,080 cGy Total 34 fractions received 6,120 cGy Systemic Therapy (chemotherapy, hormonal therapy, other): No Persistent symptoms or side effects at completion of treatments: No Familial Cancer Risk Assessment Breast and or ovarian cancer in 1st or 2nd degree relatives: Yes Mother- Breast Cancer- 50's; Father- Liver Cancer at at 70 Received Genetic counseling: No Genetic testing: No Follow-up Care Plan Your follow-up care plan is design to inform you and primary care providers regarding the recommended and required follow-up, cancer screening and routine health maintenance that is needed to maintain optimal health. Possible late- and long-term effects that someone with this type of cancer and treatment may experience: Skin changes from radiation It is important to remember that these symptoms can be due to other causes like diabetes or with normal age. If these or any other new symptoms occur bring these to attention of your health care provider. These symptoms should be brought to the attention of your provider: 1. Anything that represents a brand new symptom; 2. Anything that represents a persistent symptom; 3. Anything you are worried about that might be related to the cancer coming back. Please continue to see your primary care provider for all general health care recommended for a women your age such as routine immunizations, and routine non- breast cancer screening like colonoscopy or bone density exams. Consult with your health care provider about prevention and screening for bone loss using bone density tests. Schedule of clinical visits for cancer follow-up Follow-Up Item How often? Who's Responsible? Breast self-exam Monthly Patient Clinical breast exams Years from diagnosis 0-3 Every 3-6 months 3-5 Every 6 months Beyond 5 Annually Oncology Team (okay to alternate with oncology providers) Breast imaging (Mammogram unless otherwise indicated) Annually Medical Oncology Bone density (if on aromatase inhibitor or older than 65 years old) Every 2 years Medical oncology Cancer surveillance or other recommended related tests Coordinating Provider Test How Often Oncology Team Mammogram Annually AUTOMOBILE BODY WORKER or PCP Pap/pelvic exam As indicated by provider PCP Colonoscopy As indicated by provider PCP or Oncology Team Bone Density Every 2 years if on an aromatase inhibitor or as indicated by your provider. Breast cancer survivors may experience issues with the areas listed below. If you have any concernsin these or other areas, please speak with your doctors or nurses to find out how you can get help with them: anxiety or depression , emotional or mental health, fatigue, fertility, financial advice or assistance, insurance, memory or concentration loss, parenting, physicial functioning, school/work and sexual functioning A number of lifestyle/behaviors can affect your ongoing health, including the risk for the cancer coming back or developing another cancer. Discuss these recommendations with your doctor or nurse: alcohol use, diet, management of medications, management of other illnesses, physical activity, sun screen use, tobacco use/cessation and weight management (loss/gain) Resources you may be interested in: [employer] Internet Salesperson Computer Engineering Professor Art Therapy Viviane Wise (Breast Cancer Support Group) meets the friday of every month, from 4 PMto 5 PM, at [address] [place] [address] Prepared by: Emily Block APRN.MATTIE Delivered on: December 04, 2017 - This Survivorship Care Plan is a cancer treatment summary and follow-up plan is provided to you to keep with your health care records and to share with your primary care provider. - This summary is a brief record of major aspects of your cancer treatment. You can share your copywith any of your doctors or nurses. However, this is not a detailed or comprehensive record of yourcare.
--- OUTSIDE RECORDS SUMMARY | 2024-12-29 09:06 | XMS_ITS | Clinical Summary ---
Author Organization [facility] Address [address] [place] [address] Care Team Providers Care Repairer Welding Systems And Equipment Name Role Phone Paolo Rai MD Primary Care Provider [phone] Social History Tobacco Use Types Packs/Day Years Used Date Smoking Tobacco: Never Assessed Comments Unknown Sex and Gender Information Value Date Recorded Sex Assigned at Not on file Legal Sex Female 8:21 PM EDT Gender Identity Not on file Sexual Orientation Not on file Last Filed Vital Signs Vital Sign Reading Time Taken Comments Blood Pressure 138/80 07/14/2017 12:00 PM EDT Pulse - - Temperature - - Respiratory Rate - - Oxygen Saturation - - Inhaled Oxygen Concentration - - Weight 135 kg (298 lb) 07/14/2017 12:00 PM EDT Height 160 cm (5' 3 ) 07/14/2017 12:00 PM EDT Body Mass Index 52.79 07/14/2017 12:00 PM EDT Plan of Treatment Upcoming Encounters Date Type Department Care Team (Late st Contact Info) Description 03/11/2025 1:00 PM EST Office Visit [facility] [address] [place] [phone] Porsha Gary S, AUD [address] [place] [address] 03/15/2025 10:00 AM EST Office Visit [facility] Otol[facility] [address] [place] [phone] Maddi Simon MD [address] [place], [place] [phone] Insurance [facility] [place] [address] Care Teams Repairer Welding Systems And Equipment Relationship Specialty Start Date End Date Paolo Rai MD [address] [place] [address] PCP - General Family Medicine 12/24/24
--- NOTE | 2024-12-29 09:07 | MR_ITS ---
The [address] [address] Patient Name: JOSS WASHINGTON MRN: [id number] date: 1950 Sex: F Assigned Patient Location: MRI Current Patient Location: [facility] [place] [facility] Accession/Order Number: [id number] Exam Date: 12/29/2024 09:40 Report Date: 12/29/2024 13:05 At the request of: LAWRENCE ALBERT MD Procedure: MR head/brain wo con MR head/brain wo con 12/29/2024 11:40 AM SIGN AND SYMPTOMS: Meningioma, follow-up PROTOCOL: Multiplanar multisequence MR images of the brain without IV contrast COMPARISON: 06/15/2024 FINDINGS: Extra axial spaces: There is an extra-axial soft tissue attenuating structure along the tuberculum sellae measuring 11 mm in greatest dimension which is less well-defined due to the lack of intravenous contrast. This appears to be slightly larger when compared to the prior exam. Hemorrhage: None. Ventricular system: Within normal limits. Basal cisterns: Within normal limits and not effaced. Cerebral parenchyma: Periventricular and subcortical white matter T2 and T2 FLAIR hyperintense signal is noted similar to the prior exam suggesting chronic microvascular ischemic change. Midline shift: None.. Cerebellum: Within normal limits. Brainstem: Within normal limits. OTHER: Calvarium: Normal marrow signal. Vascular system: Satisfactory flow voids within the anterior and posterior circulation. Visualized Paranasal sinuses: Thickening is noted in the maxillary sinuses. There is a left mastoid and middle ear effusion. A small right mastoid effusion is noted. Visualized Orbits: Within normal limits. Visualized upper cervical spine: Within normal limits. Sella and skull base: Within normal limits. MR/MR head/brain wo con IMPRESSION: There is an extra-axial soft tissue attenuating structure along the tuberculum sellae measuring 11 mm in greatest dimension which is less well-defined due to the lack of intravenous contrast. This appears to be slightly larger when compared to the prior exam. This is consistent with the history of meningioma. Similar chronic age-related neurodegenerative changes are noted as above. Impression dictated by: Levi Reilly M.D. 12/29/2024 1:05 PM Dictation Location: [place] [address] Electronically authenticated by: [id number] Y Date: 12/29/2024 13:05
== END 2024-12-29 09:05 | disposition home or self-care (01) ==
LOC: MRI 09:04
PROVIDERS: PCP Family Medicine; Visit Provider Family Medicine
DX: D32.9 Benign neoplasm of meninges, unspecified (principal)
CPT/HCPCS: 70551

== ENCOUNTER 2024-12-29 12:57 | Outpatient (OUT) | payer MEDICARE, OTHER, SELFPAY ==
--- OUTSIDE RECORDS SUMMARY | 2024-12-29 12:59 | XMS_ITS ---
Author Organization [facility] Address [address] [place], [place] [address] Care Team Providers Care Worm Raiser Name Role Phone Paolo Rai MD Primary Care Provider [phone] Active Problems Problem Noted Date Diagnosed Date [...] Dr. Harry Peterson Other Providers: Emily Block APRN.OUTPATIENT PHLEBOTOMIST Treatment Summary Diagnosis Cancer Type/Histology Subtype: Right [...] Test How Often Oncology Team Mammogram Annually PRINTING SERVICES COORDINATOR or PCP Pap/pelvic exam As indicated by [...] (loss/gain) Resources you may be interested in: [employer] Parquet Floor Layer'S Helper Pinball Machine Repairer Art Therapy Viviane Wise (Breast Cancer Support Group) meets the friday of every month, from 4 PMto 5 PM, at [address] [place] [address] Prepared by: Emily Block APRN.MATTIE Delivered on: [...]
--- OUTSIDE RECORDS SUMMARY | 2024-12-29 12:59 | XMS_ITS | Clinical Summary ---
Author Organization [facility] Address [address] [place] [address] Care Team Providers Care Wood Inspector Name Role Phone Paolo Rai MD Primary Care Provider [phone] Allergies No known active allergies Medications dilTIAZem (Cardizem) 120 mg immediate release tablet Take 120 mg by mouth in the morning and at bedtime. Active lisinopril 40 mg tablet Take 1 tablet by mouth in the morning. 4 Active clopidogrel (Plavix) 75 mg tablet Take 75 mg by mouth in the morning. 5 Active simvastatin (Zocor) 20 mg tablet Take 20 mg by mouth at bedtime. 4 Active spironolactone (Aldactone) 50 mg tabletIndications :Essential hypertension Take 1 tablet (50 mg) by mouth in the morning. 90 tablet 3 5 08/07/19 26 Active Active Problems Problem Noted Date Diagnosed Date Sleep apnea 08/06/2024 TIA (transient ischemic attack) 05/09/2024 Hyperlipidemia 05/09/2024 Essential hypertension 05/09/2024 MORENO (dyspnea on exertion) 05/09/2024 Morbid obesity with BMI of 50.0-59.9, adult 11/2024 Ductal carcinoma in situ (DCIS) of right breast 08/14/2017 Family History Medical History Relation Name Comments Cancer Father Coronary artery disease Father Hyperlipidemia Father Hypertension Father Hyperlipidemia Mother Hypertension Mother Stroke Mother Relation Name Status Comments Father Mother Social History Tobacco Use Types Packs/Day Years Used Date Smoking Tobacco: Former Cigarettes Smokeless Tobacco: Never Tobacco Cessation:Counseling Given: Not Answered Alcohol Use Standard Drinks/Week Comments Not Currently 0 (1 standard drink = 0.6 oz pur e alcohol) Comments Unknown Sex and Gender Information Value Date Recorded Sex Assigned at Not on file Legal Sex Female 11:02 AM EST Gender Identity Not on file Sexual Orientation Not on file Last Filed Vital Signs Vital Sign Reading Time Taken Comments Blood Pressure 150/82 08/06/2024 10:28 AM EDT Pulse 74 08/06/2024 10:28 AM EDT Temperature - - Respiratory Rate - - Oxygen Saturation 98% 08/06/2024 10:28 AM EDT Inhaled Oxygen Concentration - - Weight 136 kg (299 lb) 08/06/2024 10:28 AM EDT Height 160 cm (5' 3 ) 08/06/2024 10:28 AM EDT Body Mass Index 52.97 08/06/2024 10:28 AM EDT Plan of Treatment Health Maintenance Due Date Last Done Comments CT Colonography 1950 Colonoscopy 1950 Colorectal Cancer Screening 1950 FIT-DNA 1950 FIT 1950 FOBT 1950 Medicare Annual Wellness (AWV) 1950 Sigmoidoscopy 1950 Depression Screening 1963 Adult Tetanus 1973 Mammogram 1991 Zoster Vaccines (1 of 2) 2001 Fall Risk Screening 2016 Pneumococcal Vaccine: 50+ Years (2 of 2 - PCV) 06/26/2018 06/26/2017, 09/06/2016 COVID-19 Vaccine (1 - season) 2024 Influenza Vaccine (#1) 2024 , 02/18/2022, 01/03/2021, Additional history exists HIB Vaccines Aged Out No longer eligi ble based on patient's age to complete this topic HPV Vaccines Aged Out No longer eligi ble based on patient's age to complete this topic IPV Vaccines Aged Out No longer eligi ble based on patient's age to complete this topic Meningococcal B Vaccine Aged Out No l onger eligible based on patient's age to complete this topic Meningococcal Vaccine Aged Out No mercy martha eligible based on patient's age to complete this topic Rotavirus Vaccines Aged Out No longer eligible based on patient's age to complete this topic [place] [address] [employer] [place] [id number] Care Teams Wood Inspector Relationship Specialty Start Date End Date Paolo Rai MD [address] [facility] [place] [address] PCP - General 05/07/24
--- OUTSIDE RECORDS SUMMARY | 2024-12-29 12:59 | XMS_ITS | Clinical Summary ---
Author Organization [employer] [facility] tem Address [id number] [address] [place] [address] Care Team Providers Care Lead Mechanic Name Role Phone Paolo Rai MD Primary Care Provider [phone] Social History Tobacco Use Types Packs/Day Years [...] Medical Devices Not on file Insurance MEDICARE [facility] [place] [address] Care Teams Lead Mechanic Relationship Specialty Start Date End Date Paolo Rai MD [address] [place] [address] PCP - General Family Medicine 03/19/24
--- OUTSIDE RECORDS SUMMARY | 2024-12-29 12:59 | XMS_ITS | Clinical Summary ---
Author Organization [facility] Address [address] [place] [address] Care Team Providers Care Recreation Assistant Name Role Phone Paolo Rai MD Primary Care Provider [phone] Social History Tobacco Use Types Packs/Day Years [...] Audiology [address] [place] [phone] Porsha Gary S, AUD [address] [place] [address] 03/15/2025 10:00 AM EST Office Visit [facility]an Otolaryngology [address] [place] [phone] Maddi Simon MD [address] [place], [place] [phone] Insurance [facility] [place] [address] Care Teams Recreation Assistant Relationship Specialty Start Date End Date Paolo Rai MD [address] [place] [phone] PCP - General Family Medicine 12/24/24
--- OUTSIDE RECORDS SUMMARY | 2024-12-29 12:59 | XMS_ITS | Clinical Summary ---
Author Organization [facility] Address [address] [place], [place] [address] Care Team Providers Care Guidance Consultant Name Role Phone Paolo Rai MD Primary Care Provider [phone] Allergies No known active allergies Medications VENTOLIN [...] N ot on file 03/07/2020 Data from: [email or web address] Last address used for calculation Not on [...] 1-dose 75+ series) [address] [place] [address] MEDICARE [employer] MEDICARE [facility] Address: [address] [place] [address] Care Teams Guidance Consultant Relationship Specialty Start Date End Date Paolo Rai MD PCP - General Family Medicine 07/14/17
== END 2024-12-29 12:58 | disposition home or self-care (01) ==
LOC: SLEEP 12:57
PROVIDERS: PCP Family Medicine; Visit Provider Psychiatry & Neurology Neurology
DX: G47.33 Obstructive sleep apnea (adult) (pediatric) (principal)

== ENCOUNTER 2025-02-10 07:16 | Outpatient (OUT) | payer MEDICARE, OTHER, SELFPAY ==
--- OUTSIDE RECORDS SUMMARY | 2025-02-07 05:30 | XMS_ITS ---
Author Organization The [facility] in [place] Address [address] [place] [address] Care Team Providers Care Field Contact Technician Name Role Phone Chino Rai Primary Care Provider Allergies Allergen (clinical drug ingredient) Drug/Non Drug Allergy documented on EMR Reaction Allergy Type Onset Date Status fluticasone / vilanterol Breo Ellipta mouth ulcers Drug Al lergy Active REASON FOR VISIT Presents to office alone for yearly check up Medications Medication SIG (Take, Route, Frequency, Duration) Notes Start Date End Date Status Azelastine HCl 0.05 % 1 drop into affected eye O phthalmic Twice a day ActiveCholecalciferol 50 MCG (2000 UT)1 capsule Orally Once a iooUGQ80 ActiveVentolin HFA 108 (90 Base) MCG/ACT2 puff as needed Inhalation every 4 hrs 5ActiveSimvastatin 20 MG1 tablet Orally every evening; Duration: 90 days4ActiveSpironolactone 50 MGTAKE 1 TABLET BY MOUTH IN THE MORNING Oral; Duration: 90 DaysActiveSpiriva Respimat 1.25 MCG/ACT2 puffs Inhalation Once a day01/06/2024ctivetiZANidine HCl 4 MG2 tabs Orally qhs; Duration: 30 days5ActiveLac-Hydrin Five 5 %1 application Externally Twice a day 5ActiveLisinopril 40 MG1 tablet Orally Once a day; Duration: 90 days ActivehydrOXYzine HCl 25 MG1 tablet at bedtime as needed Orally Once a dayActive dilTIAZem HCl 120 MG1 capsule Orally bid; Duration: 90 daysActiveDaypro 600 MG2 tablets Orally daily; Duration: 20 days5ActiveClopidogrel Bisulfate 75 MG1 tablet Orally Once a day; Duration: 90 daysActive Immunizations Vaccine Route Administration Date Status Comme nts Flu, Fluad (98216) 65 yrs and older, single-dose syringe (9331-6811) IM Intramuscular 02/07/2025 Administered Social History Tobacco Use: Social History Observation Description Date Details (start date - stop date) Never Smoker NA - NA Tobacco Use/Smoking Question Answer Notes Patient is a nonsmoker AUDIT-C (Standard) Question Answer Notes Did you have a drink containing alcohol in the p ast year? No Yluiaq1ZyqibakxeyudusIpvavjsy Vital Signs Weight 306.4 lbs 02/07/2025 Height 63 in 02/07/2025 Blood pressure systolic 146 mm Hg 02/08/20 25 Blood pressure diastolic 84 mm Hg 025 BMI 54.27 kg/m2 02/07/2025 Encounters Encounter Location Date Provider Diagnosis [address] [address] 02/07/2025 Chino Rai Encounter for immunization Z23 ; Hypertension I10 ; Chronic fatigue syndrome R53.82 and Diabetes mellitus type 2, diet-controlled E11.9 Assessments Encounter Date Diagnosis (ICD Code) Assessment Notes Treatment Notes Treatment Clinical Notes Section Notes 02/07/2025 Encounter for immunization (ICD- 10 - Z23) 02/07/2025Hypertension (ICD-10 - I10)[id number] fatigue syndrome (ICD-10 - R53.82)checin labs02/07/2025Diabetes mellitus type 2, diet-controlled (ICD-10 - E11.9)runing 120's Plan Of Treatment Treatment Notes Assessment Notes Hypertension stabel Chronic fatigue syndrome checin labs Diabetes mellitus type 2, diet-controlle d runing 120's Pending Test Test Name Order Date HEMOGLOBIN A1C (GLYCO) 02/07/2025 IRON, TOTAL 02/07/2025 LIPID PANEL (CHOL/TRIG/HDL/LDL) 02/08/20 25 VITAMIN D, 25 LEVEL (TOTAL) 02/07/2025 Insulin Level 02/07/2025 STOOL OCCULT BLOOD 02/07/2025 BNP 02/07/2025 XR CHEST 2 V 02/07/2025 THYROID PANEL (T4/TSH/FREE T3) 5 MM screening mammo BI 02/07/2025 CMP (COMP MET ORTEGA) w/eGFR CKD-EPI 2024 CBC WITH DIFF 02/07/2025 Progress Notes * Charlee NAGY JDOB:1950 (74 yo F)Acc No.[id number]:02/07/2025 Progress Note Patient: Charlee KIM :?Paolo LupilloJodi Fredi ([facility]), MDDOB:1950???Age: 74 Y???Sex:FemaleDate:02/07/2025Phone:[phone]:[address], [id number] In:10:20 AM ESTCheck Out:11:08 AM EST Subjective: * Chief Complaints: * P resents to office alone for yearly check up * HPI: ???General:?treated for cold - never regained fuol strength - stil some jay. * ROS: ???EENT:?hearing changes?denies.?visual changes?denies. non-healing mouth sores?denies.?swollen glands or neck lumps?denies.?hoarseness?denies.?sore throat?denies.?difficulty swallowing?denies.?nose bleeds?denies.?nasal congestion?denies.?ear ache?denies.?ear discharge denies.?ringing in ears?denies.?light sensitivity?denies.?eye pain?denies.?blurring?denies.?eye irritation?denies.?double vision?denies. vision loss?denies.?General/Constitutional:?Sweats:?Denies.?Fatigue?denies.?Sleep proble ms?denies.?Anorexia?denies.?Malaise?denies.?Weight loss?denies. Fatigue or Weakness?denies.?Fever or Chills?denies.?Cardiovascular:?Shortness of Breath w/lying flat?denies.?Lightheadedne ss/dizziness?denies.?Chest tightness/ heavy pressure?denies.?Swelling of legs, a nkles, or feet?denies.?Waking up with shortness of breath?denies.?Chest pain&#16 0;denies.?Palpitations?denies.?Weight gain?denies.?Respiratory:?Chronic or frequent cough?denies.?Coughing up blood&#1 60;denies.?Difficulty breathing?denies.?Productive cough?denies.?Snoring&#1 60;denies.?Shortness of breath that awakens from sleep (PND)?denies.?Chest pain? denies.?Sputum production?denies.?Wheezing?denies.?Musculoskeletal:?Joint pain?denies.?Joint Fluid?denies.?Backpain?denies.?Knee pain?denies.?Neck pain?denies.?Joint Stiffness?denies.?Muscle cramps?denies.?Weakness of muscles?denies.?Arthritis?denies.?Muscle aches?denies.?Pain in shoulder(s)?denies.?Swollen joints?denies.? * Active Problem List E66.01 Morbid (severe) obes ity due to excess calories Modified On:08/02/2022 Status:wdccfdkerY24.3Overweight Modified On:08/02/2022 Status:hoerbgrofZ82.209Phlebitis and thrombophlebitis of unspecified deep vessels of unspecified lower extremity Modified On:08/02/2022 Status:jzcxjewlnG36.830Muscle spasm of back Modified On:08/02/2022 Status:xtzfsphauQ79Jydaarcwfdmt Modified On:08/02/2022 Status:cgdmxxkmjI01.00Carpal tunnel syndrome Modified On:08/02/2022 Status:azsjsnkewZ71.00Well adult Modified On:08/02/2022 Status:lxhrztajjC46.2Seasonal allergic rhinitis Modified On:08/02/2022 Status:varvrggzkS83.92Diverticulitis Modified On:08/02/2022 Status:jicizakfqB22.82Chronic fatigue syndrome Modified On:08/02/2022 Status:loeykcfqrU67.11Ductal carcinoma in situ (DCIS) of right breast Modified On:08/02/2022 Status:ydqlyajrmG02.21Ulnar nerve entrapment, right Modified On:08/02/2022 Status:lxwlrblixW34.43BMI 50.0-59.9, adult Modified On:08/02/2022 Status:kbmbfpltkQ02.92Otitis media, left Modified On:08/02/2022 Status:xklwgvnkgL90.9Eczema Modified On:08/02/2022 Status:rifpfiuzcT22.579Ankle pain Modified On:08/02/2022 Status:kbifijilsZ42.40Shoulder impingement syndrome Modified On:08/02/2022 Status:vlmifpwrkL64.7Fibromyositis Modified On:08/02/2022 Status:hbysbvrhxU28.9Diabetes mellitus type 2, diet-controlled Modified On:04/01/2023 Status:qfktrtzaeR12.8Anxiety and depression Modified On:08/02/2022 Status:fcmfawoyuD87.0Edema of left lower leg Modified On:08/02/2022 Status:mfmnluevxO09.50Low back pain, unspecified Modified On:08/02/2022 Status:gncnldjxpK31.9Chest pain Modified On:09/20/2022 Status:trvxzynmeX16.909Asthma Modified On:02/03/2023 Status:psiuedtthM49.9Hypothyroidism Modified On:01/06/2024 Status:bwwoekckeH14.00Hypercholesterolemia Modified On:01/06/2024 Status:oadvuuheeP83.9TIA (transient ischemic attack) Modified On:03/26/2024U Status:gzqlkmfczT69.9Brain TIA Modified On:01/06/2025W/U Status:uoonvtyiyN74.5Hyperlipemia Modified On:05/06/2024/U Status:ytxjlvgwcJ81SS (high blood pressure) Modified On:05/06/2024/U Status:naocjymjbX14.9Benign neoplasm of meninges Modified On:06/16/2024/U Status:triwqctveK82.2Neck pain Modified On:06/21/2024/U Status:uvfkhmsjlL92.9Acute bronchitis Modified On:10/18/2024/U Status:dzejfagyiQ47.0Benign meningioma Modified On:12/30/2024U Status:confirmed * Medical History: * Surgical History: C holecystectomy Rotator Cuff Repair Tonsillectomy Hysterectomy Hernia Repair Lumpectomy, rt breast Shoulder Decompression, Right * Hospitalization/Major Diagno stic Procedure: V ision changes 03/23 * Family History: F ather: , diagnosed with Diabetes, Heart Disease. M other: , lung disease, CVA, diagnosed with Heart Disease. S ister(s): alive, Brain cancer, bladder cancer, diagnosed with Diabetes. S on(s): alive. D aleks(s): alive. 2 sister(s) . 2 son(s) , 1 daughter(s) - healthy. . * Social History: ???Tobacco Use:?Tobacco Use/Smoking?Patient is a?nonsmoker ???Drug/Alcohol:?AUDIT-C (Standard)?Did you have a drink containing alcohol in the past year??No ?Points?0 ?Interpretation?Negative * Medications: T akingAzelastine HCl 0.05 % Solution 1 drop into affected eye Ophthalmic Twice a day Cholecalciferol 50 MCG (1999 UT) Capsule 1 capsule Orally Once a day , Notes to Pharmacist: OTCClopidogrel Bisulfate 75 MG Tablet 1 tablet Orally Once a day Daypro 600 MG Tablet 2 tablets Orally daily dilTIAZem HCl 120 MG Tablet 1 capsule Orally bid hydrOXYzine HCl 25 MG Tablet 1 tablet at bedtime as needed Orally Once a day Lac-Hydrin Five(Ammonium Lactate) 5 % Lotion 1 application Externally Twice a day Lisinopril 40 MG Tablet 1 tablet Orally Once a day Simvastatin 20 MG Tablet 1 tablet Orally every evening Spiriva Respimat(Tiotropium [place]) 1.25 MCG/ACT Aerosol Solution 2 puffs Inhalation Once a day Spironolactone 50 MG Tablet TAKE 1 TABLET BY MOUTH IN THE MORNING Oral tiZANidine HCl 4 MG Tablet 2 tabs Orally qhs Ventolin HFA(Albuterol Sulfate HFA) 108 (90 Base) MCG/ACT Aerosol Solution 2 puff as needed Inhalation every 4 hrs Taking Azelastine HCl 0.05 % Solution 1 drop into affected eye Ophthalmic Twice a day Taking Cholecalciferol 50 MCG (2000 UT) Capsule 1 capsule Orally Once a day , Notes to Pharmacist: OTCTaking Clopidogrel Bisulfate 75 MG Tablet 1 tablet Orally Once a day Taking Daypro 600 MG Tablet 2 tablets Orally daily Taking dilTIAZem HCl 120 MG Tablet 1 capsule Orally bid Taking hydrOXYzine HCl 25 MG Tablet 1 tablet at bedtime as needed Orally Once a day Taking Lac-Hydrin Five(Ammonium Lactate) 5 % Lotion 1 application Externally Twice a day Taking Lisinopril 40 MG Tablet 1 tablet Orally Once a day Taking Simvastatin 20 MG Tablet 1 tablet Orally every evening Taking Spiriva Respimat(Tiotropium [place]) 1.25 MCG/ACT Aerosol Solution 2 puffs Inhalation Once a day Taking Spironolactone 50 MG Tablet TAKE 1 TABLET BY MOUTH IN THE MORNING Oral Taking tiZANidine HCl 4 MG Tablet 2 tabs Orally qhs Taking Ventolin HFA(Albuterol Sulfate HFA) 108 (90 Base) MCG/ACT Aerosol Solution 2 puff as needed Inhalation every 4 hrs DiscontinuedBenzonatate 200 MG Capsule 1 capsule Orally Three times a day levoFLOXacin 750 MG Tablet 1 tablet Orally Once a day predniSONE 10 MG Tablet 5 tabs per day for 3 days, 4 tabs per day for 3 ays, 3 tabs perday for 3 days, 2 tabs per day for 3 days, 1 tab a day for 3 days, 1/2 tab a day for 4 days Orally Once a day Valium(diazePAM) 10 MG Tablet 1 tablet as needed Orally once about 1 hour before procedure Medication List reviewed and reconciled with the patientDiscontinued Benzonatate 200 MG Capsule 1 capsule Orally Three times a day Discontinued levoFLOXacin 750 MG Tablet 1 tablet Orally Once a day Discontinued predniSONE 10 MG Tablet 5 tabs per day for 3 days, 4 tabs per day for 3 ays, 3 tabs perday for 3 days, 2 tabs per day for 3 days, 1 tab a day for 3 days, 1/2 tab a day for 4 days Orally Once a day Discontinued Valium(diazePAM) 10 MG Tablet 1 tablet as needed Orally once about 1 hour before procedure Medication List reviewed and reconciled with the patient * Allergies: B reo Ellipta: mouth ulcers - Side Effectsno[Allergies Verified] Objective: * Vitals: W t:306.4lbs, Ht: 63 in, BP:146/84mm Hg, BMI:54.27Index, Ht-cm: 160.02 cm, Wt-k.98 kg. * Examination: ???Physical Exam: ?GENERAL:?well developed, well nourished, in no acute distress.?HEAD:?normocephalic/atraumatic.?EYES:?pupils equal, round and reactive to light, conjunctivae and sclerae normal.?EARS:?no deformity or lesion of external ear, canals and TM appear normal bilaterally, TM's intact, not inflamed with normal light reflex, hearing grossly normal to conversational speech.?NOSE:?no deformity, discharge, inflammation, or lesions. ?MOUTH:?mucous membranes moist, normal oropharynx and posterior pharynx without lesions or exudates, tongue normal, dentition normal.?NECK:?neck supple, no masses or palpable cervical nodes, trachea midline, thyroid without nodules, masses, tenderness, or enlargement.?CHEST:?no chest wall deformity, no chest wall tenderness. ?LUNGS:?normal respiratory effort and clear to auscultation, no wheezes, rales, or rhonchi, good air exchange.?CARDIO:?regular rate and rhythm, normal S1 and S2, nor murmur, rub, or gallop.?PULSES:?normal capillary refill.?ABDOMEN:?soft, non-distended, non-tender, no masses.?MUSCULOSKELETAL:?no deformity or scoliosis noted, normal range of motion, joints normal, no erythema, edema, effusion, or ecchymosis.?EXTREMITY:?no clubbing, cyanosis, edema, or deformity withnormal ROM in both upper and lower bilateral extremities.?NEUROLOGIC:?grossly normal.?SKIN:?no rashes, ulcerations, or suspicious lesions.?LYMPH NODES:?no cervical adenopathy, nodes normal.?MENTAL STATUS:?alert and oriented x3, normal mood and affect.? Assessment: * Assessment: 1.?Hypertension - I10 (Primary)???2.?Encounter for immunization - Z23? ??3.?Chronic fatigue syndrome - R53.82???4.?Diabetes mellitus type 2, diet- controlled - E11.9??? Plan: * Treatment: ?LAB: HEMOGLOBIN A1C (GLYCO) ?LAB: IRON, TOTAL ?LAB: LIPID PANEL (CHOL/TRIG/HDL/LDL) ?LAB: VITAMIN D, 25 LEVEL (TOTAL) ?LAB: Insulin Level ?LAB: STOOL OCCULT BLOOD ?LAB: THYROID PANEL (T4/TSH/FREE T3) ?LAB: CMP (COMP MET ORTEGA) w/eGFR CKD-EPI ?LAB: CBC WITH DIFF ?Imaging: XR CHEST 2 V Notes: stabel??2.?Encounter for immunization?LAB: HEMOGLOBIN A1C (GLYCO) ?LAB: IRON, TOTAL ?LAB: LIPID PANEL (CHOL/TRIG/HDL/LDL) ?LAB: VITAMIN D, 25 LEVEL (TOTAL) ?LAB: Insulin Level ?LAB: STOOL OCCULT BLOOD ?LAB: BNP ?LAB: THYROID PANEL (T4/TSH/FREE T3) ?LAB: CMP (COMP MET ORTEGA) w/eGFR CKD-EPI ?LAB: CBC WITH DIFF ?Imaging: MM screening mammo BI3.?Chronic fatigue syndrome?LAB: HEMOGLOBIN A1C (GLYCO) ?LAB: IRON, TOTAL ?LAB: LIPID PANEL (CHOL/TRIG/HDL/LDL) ?LAB: VITAMIN D, 25 LEVEL (TOTAL) ?LAB: Insulin Level ?LAB: STOOL OCCULT BLOOD ?LAB: THYROID PANEL (T4/TSH/FREE T3) ?LAB: CMP (COMP MET ORTEGA) w/eGFR CKD-EPI ?LAB: CBC WITH DIFF Notes: checin labs??4.?Diabetes mellitus type 2, diet-controlled?LAB: HEMOGLOBIN A1C (GLYCO) ?LAB: IRON, TOTAL ?LAB: LIPID PANEL (CHOL/TRIG/HDL/LDL) ?LAB: VITAMIN D, 25 LEVEL (TOTAL) ?LAB: Insulin Level ?LAB: STOOL OCCULT BLOOD ?LAB: THYROID PANEL (T4/TSH/FREE T3) ?LAB: CMP (COMP MET ORTEGA) w/eGFR CKD-EPI ?LAB: CBC WITH DIFF Notes: runing 120's?? * Immunizations: Flu, Fluad (32655) 65 yrs and older, single-dose syringe ([id number]) : 0.5 mL (Route: Intramuscular) given by Tiffanie Rene , MR on Right Gluteus Medius (Encounter for immunization) * Procedure Codes: 9 0653 FLU VACCINE ADJUVANT [id number] ADMIN. INFLUENZA * Preventive Medicine: ??Screenings/Counseling:?BMI ACTION PLAN?Above Normal BMI Follow-up?Dietary management education, guidance, and counseling See treatment section of progress note for complete details of management plan. ?FALL RISK SCREENING?Fall Risk Assessment:?No falls in the past year * * Sign off status: CompletedVisit Status:?CHK (Check Out) true * Provider: Adrián GAYTAN)MD Date: 1 04/09/2024 Generated for Printing/Faxing/eTransmitting on:?02/10/2025 07:22 AM EST History and Physical Notes * HPI (History of Present Illness) CategorySub-CategoryDetailNotesCategory NotesGeneral treated for cold - never regained fuol strength - stil some jay Examination CategorySub-CategoryDetailNotesCategory NotesPhysical ExamGENERAL:well developed, well nourished, in no acute distressHEAD:normocephalic/atraumatic EYES:pupils equal, round and reactive to light, conjunctivae and sclerae normal EARS:no deformity or lesion of external ear, canals and TM appear normal bilaterally, TM's intact, not inflamed with normal light reflex, hearing grossly normal to conversational speechNOSE:no deformity, discharge, inflammation, or lesionsMOUTH:mucous membranes moist, normal oropharynx and posterior pharynx without lesions or exudates, tonguenormal, dentition normalNECK:neck supple, no masses or palpable cervical nodes, trachea midline, thyroid without nodules, masses, tenderness, or enlargementCHEST:no chest wall deformity, no chest wall tendernessLUNGS:normal respiratory effort and clear to auscultation, no wheezes, rales, or rhonchi, good air exchangeCARDIO:regular rate and rhythm, normal S1 and S2, nor murmur, rub, or gallopPULSES:normal capillary refillABDOMEN:soft, non-distended, non-tender, no massesRECTAL:MUSCULOSKELETAL:no deformity or scoliosis noted, normal range of motion, joints normal, no erythema, edema, effusion, or ecchymosisEXTREMITY:no clubbing, cyanosis, edema, or deformity with normal ROM in both upper and lower bilateral extremitiesNEUROLOGIC:grossly normalSKIN:no rashes, ulcerations, or suspicious lesionsLYMPH NODES:no cervical adenopathy, nodes normalMENTAL STATUS:alert and oriented x3, normal mood and affect
--- NOTE | 2025-02-10 | XR_ITS ---
The [address] [address] Patient Name: JOSS WASHINGTON MRN: [id number] date: 1950 Sex: F Assigned Patient Location: LAB Current Patient Location: LAB Accession/Order Number: [id number] Exam Date: 02/10/2025 07:45 Report Date: 02/10/2025 08:51 At the request of: LAWRENCE ALBERT MD Procedure: XR chest 2V PA AND LATERAL CHEST: CLINICAL HISTORY: Cough and shortness of breath. Hypertension I10 COMPARISON: None There is no focal parenchymal consolidation, effusion or pneumothorax. The cardiac, hilar and mediastinal silhouettes are within normal limits. There is no vascular congestion. The visualized bony thorax is intact. Degenerative change and subtle dextroscoliotic curvature are visualized at the spine. XR/XR chest 2V IMPRESSION: NO ACUTE CARDIOPULMONARY ABNORMALITY. Impression dictated by: Henny Garza M.D. 02/10/2025 8:51 AM Dictation Location: [place] [address] Electronically authenticated by: [id number] Y Date: 02/10/2025 08:51
--- OUTSIDE RECORDS SUMMARY | 2025-02-10 07:21 | XMS_ITS | CCD ---
Author Organization [facility] Care Team Providers Care Lead Technologist In Cytogenetics Name Role Phone KATHERINE DOWNS Attending Unavailable GEREMIAS BERMAN Referring Unavail able CRONIN, KHALID R Attending Unavailable KATHERINE DOWNS Referring Unavailable CRONIN, KHALID Celeste Attending Unavailable RCONIN, KHALID R Referring Unavailable SHANIQUA, JEM Attending [...] CRONIN, KHALID R Referring Unavailable LISA WILLAMS ([facility]) Attending Unavailabl e CRONIN, KHALID [...] Unavailable BETY, DR BRAVO Primary Care Unavailable JOHN YIN Attending Unavailable JOHN YIN Attending Unavailable DAVIDSON MALDONADO Referring Unavailable Problems Active Problems Problem ClassificationProblemDateDocumented DateEpisodic/ChronicCancer of breast (5 sources)Intraductal carcinoma in situ of right breast; Translations: [Intraductal carcinoma in situ of right breast]Onset: 08-73-9370KvbklctDihayseh mellitus without complication (1 source)Type 2 diabetes mellitus without complications; Translations: [TYPE 2 DM WITHOUT COMPLICATIONS]Onset: 05-89-9439LvrmbedNhqbaaopj of lipid metabolism (2 sources)Hyperlipidemia, unspecified; Translations: [Hyperlipidemia, unspecified]Onset: 36-08-9442CfaigfbXjfyupiqn hypertension (3 sources)Essential (primary) hypertension; Translations: [ESSENTIAL PRIMARY HYPERTENSION]Onset: 90-08-6414QaqkerkZuqkc connective tissue disease (4 sources)Impingement syndrome of left shoulder; Translations: [IMPINGEMENT SYNDROME LEFT SHOULDER]Onset: 25-30-8702OjvllnkzFroyf nutritional; endocrine; and metabolic disorders (1 source)Morbid (severe) obesity due to excess calories; Translations: [MORBID SEVERE OBES D/T EXCESS ARIAS]Onset: 98-78-3900IxovtawRaiebvra codes; unclassified (1 source)Family history of malignant neoplasm of breast; Translations: [FAMILY HX MALIG NEOPLASM OF BREAST]Onset: 06-43-1552BkumjwvuIxzszymp codes; unclassified (1 source)Family history of malignant neoplasm of trachea, bronchus and lung; Translations: [FAM HX MALIG NEOPLSM TRACH BRON LNG]Onset: 09-35-9261Xotiarwi Residual codes; unclassified (1 source)Family history of malignant neoplasm of other organs or systems; Translations: [FAM HX MALIG NEOPLASM OTH ORGN/SYS]Onset: 94-19-1637Axkwzkhr Transient cerebral ischemia (2 sources)Transient cerebral ischemic attack, unspecified; Translations: [Transient cerebral ischemic attack,unspecified]Onset: 27-64-9077Ocxhwry Past or Other Problems Problem ClassificationProblemDateDocumented DateEpisodic/ChronicDeficiency and other anemia (1 source)Anemia, unspecified; Translations: [ANEMIA UNSPECIFIED]Onset: 41-57-5867IomqvbkeFmztohzg mellitus without complication (1 source)Other abnormal glucose; Translations: [OTHER ABNORMAL GLUCOSE]Onset: 75-85-7809EizqielgWmzix nutritional; endocrine; and metabolic disorders (4 sources)Overweight; Translations: [OVERWEIGHT]Onset: 30-61-8741Ajdquugb Results Test NameValueInterpretationReference XjpjpBuvgngpn96vk [id number]: John iYn MD Sent: 08/29/2024 3:06 PM EDT To: Gerda Coppola MA Subject: RE: Scan Labs are overall good. Ask her if her blood pressure is better after adding Aldactone/spironolactone Advised patient of Dr. Yin's findings. Patient states her blood pressure is doing great and she feels much better.[facility] Office Visiton 57-61-0649Ruqffo-up [id number] Joss Washington 1950 F Date Provider Department Center 08/06/2024 [id number] YIN [facility] Family History Problem Relation Age of Onset Hypertension Mother Stroke Mother Hyperlipidemia Mother Hypertension Father Coronary artery disease Father Hyperlipidemia Father Cancer Father Family Status - Relation Status Age at Mother Father Level of Service:05126 DE OFFICE/OUTPATIENT ESTABLISHED MOD [facility] 30 MIN Reason for Visit and Comments: Hyperlipidemia [182] - Had lipid in May 2024. Hypertension [484881] - She brought BP log with her. Shortness of Breath [019563] - She attributes her MORENO to her weight. Says it's hard for her to walk a lot due to knee pain. Palpitations [988877] - Hasn't had palpitations recently. Transient Ischemic Attack [274500] - Had bubble study in May 2024. She wants to know if she can stop Plavix due to TIA being ruled out.[facility] 26-93-8885Iyxbqn-up [id number] Joss Washington 1950 F Date Provider Department Center 05/07/2024 [id number]-GHGPUTJOHN YIN [facility] Family History Problem Relation Age of Onset Hypertension Mother Stroke Mother Hyperlipidemia Mother Hypertension Father Coronary artery disease Father Hyperlipidemia Father Cancer Father Family Status - Relation Status Age at Mother Father Level of Service:53101 DE OFFICE/OUTPATIENT NEW MODERATE MDM 45 MINUTES Reason for Visit and Comments: Chest Pain [629401] - Patient describes it as chest discomfort . Says she was told 40+ years ago that she had mitral valve prolapse. Echo was done with recent admission. Hypertension [400602] - She was admitted to [facility] in Feb 2024 for TIA and hypertension. Hyperlipidemia [182] Shortness of Breath [] - C/o MORENO. Palpitations [] - She wore 7 day Holter after hospital admission. She is currently wearing a 30 day event monitor.[facility] HealthXR SHOULDER LT 2V or >on 94-41-1687AH SHOULDER LT 2V or >EXAM: Shoulder. HISTORY: . Impingement syndrome of shoulder [...] Electronically authenticated by: LIBIA GIBBS Date: 2022-03-17 13:[address] [place], [place] [address]MG MAMM ABHAY DIAG W CADon 47-18-3907FO MAMM ABHAY DIAG W CAD Patient: JOSS WASHINGTON Exam Date: 02/08/2022 : 1950 Gender:F Ordering : DR LAWRENCE RAI . Admission #: [id number] Family : Order #: [id number] CLICK HERE TO VIEW EXAM RADIOLOGY REPORT [...] LOCATION: [facility] BREAST COMPOSITION: Scattered areas fibroglandular density. [...] by: Brandon Lima M.D. on 02/08/2022 at 08:46NormalThe [facility] HospitalT4, T3U, FTI LABCORPon 34-17-4318Fdhx Thyroxine Index1.7Gvwuug2.2-4.9The [facility] Hospitalment on above:Performed By: #### THYLC #### [facility] [address] [place] [address] Dr. Sheldon CorderoT3 Qmayxi53 %Ndvqdz06-73Vni [facility] HospitalCombeaumont [facility] on above: Performed By: #### THYLC #### [facility] [address] [place] [address] Dr. Sheldon CorderoT4 [Mass/Vol]6.4 ug/dLNormal4.5-12.0The [facility] on above:Performed By: #### THYLC #### [facility] [address] [place] [address] Dr. Sheldon McdowellC AUTO DIFFon 77-34-4072KIYN #0.1 103/ulNormal0.0-0.1The [facility] on above:Performed By: #### CBC #### [facility] [address] [address] [address] Sheldon CorderoBasophils/100 WBC (Bld)0.8 %Normal0.2-2.0[facility] Comment on above:Performed By: #### CBC #### [facility] [address] [address] [address] Sheldon Velasquez #0.3 103/ulNormal0.0-0.7The [facility] HospitalComment on above: Performed By: #### CBC #### [facility] [address] [address] [address] Sheldon Fortuneosinophils/100 WBC (Bld)3.8 %Normal0.9-7.0[facility] Comment on above:Performed By: #### CBC #### [facility] [address] [place] [address] Dr. Sheldon Fortunerythrocyte distribution width (RBC) [Ratio]14.6 %Tsvnkq20.0-15.0 [facility] HospitalComment on above:Performed By: #### CBC #### [facility] [address] [place] [address] Dr. Sheldon CorderoHematocrit (Bld) [Volume fraction]39.3 %Tanlij87.0-48.0[facility] HospitalComment on above:Performed By: #### CBC #### [facility] [address] [place] [address] Dr. Sheldon CorderoHemoglobin (Bld) [Mass/Vol]12.4 g/sJSdiyvo81.0-16.0[facility] HospitalComment on above:Performed By: #### CBC #### [facility] [address] [address] [address] Sheldon Augustin #0.08 10e3/ulCritically high0.00-0.03[facility] Comment on above:Performed By: #### CBC #### [facility] [address] [place] [address] Dr. Sheldon Augustin %1.1 %Critically high0.0-0.5The [facility] HospitalComment on above:Performed By: #### CBC #### [facility] [address] [address] [address] Sheldon Schulz #1.8 103/ulNormal1.2-3.8The [facility] on above:Performed By: #### CBC #### [facility] [address] [address] [address] Sheldon Leunghocytes/100 WBC (Bld)25.1 %Xqpsro27.5-60.0The [facility] HospitalComment on above:Performed By: #### CBC #### [facility] [address] [place] [address] Dr. Sheldon Griffin DIFF REQNONormalThe [facility] HospitalComment on above: Performed By: #### CBC #### [facility] [address] [place] [address] Dr. Sheldon Richardson (RBC) [Entitic mass]29.6 afKjllbo99.7-34.0The [facility] HospitalComment on above:Performed By: #### CBC #### [facility] [address] [place] [address] Dr. Sheldon Brown (RBC) [Mass/Vol]31.6 g/tHIewrdl04.9-35.2The [facility] on above:Performed By: #### CBC #### [facility] [address] [place] [address] Dr. Sheldon Brown (RBC) [Entitic vol]93.8 tLAofgaq25.0-99.0The [facility] HospitalComment on above:Performed By: #### CBC #### [facility] [address] [place] [address] Dr. Sheldon Xiong #0.4 103/ulNormal0.3-0.8The [facility] on above:Performed By: #### CBC #### [facility] [address] [place] [address] Dr. Sheldon Laneocytes/100 WBC (Bld)5.8 %Normal1.7-12.0The [facility] Comment on above:Performed By: #### CBC #### [facility] [address] [place] [address] Dr. Sheldon Lorenz #4.6 103/ulNormal1.4-6.5The [facility] HospitalComment on above:Performed By: #### CBC #### [facility] [address] [place] [address] Dr. Sheldon Oropezautrophils/100 WBC (Bld)63.4 %Uzfmsj03.0-75.0The [facility] HospitalComment on above:Performed By: #### CBC #### [facility] [address] [place] [address] Dr. Sheldon Hernandez mean volume (Bld) [Entitic vol]8.9 fLCritically low 9.5-13.5The [facility] HospitalComment on above:Performed By: #### CBC #### [facility] [address] [place] [address] Dr. Sheldon CorderoPLT277 103/ubEyglst791-902Ykp [facility] HospitalComment on above: Performed By: #### CBC #### [facility] [address] [place] [address] Dr. Sheldon CorderoRBC4.19 106/ulCritically low4.20-5.40The [facility] HospitalComment on above:Performed By: #### CBC #### [facility] [address] [place] [address] Dr. Sheldon CorderoWBC7.2 103/ulNormal4.0-11.0The [facility] HospitalComment on above: Performed By: #### CBC #### [facility] [address] [place] [address] Dr. Sheldon CorderoGLYCOHEMOGLOBIN A1Con 35-62-5351XXG RECOMMENDATIONSEE BELOWNormal The [facility] HospitalComment on above:Result Comment: ADA RECOMMENDED LIMIT 4.0 - 6.0 ADA THERAPEUTIC TARGET < 7.0 ACTION SUGGESTED > 7.0Performed By: #### A1C #### [facility] [address] [address] [address] Sheldon CorderoGlucose [Mass/Vol]128 mg/dLOhio State Harding Hospital on above:Performed By: #### A1C #### [facility] [address] [place] [address] Dr. Sheldon CorderoHbA1c (Bld) [Mass fraction]6.1 %Normal4.5-6.2The [facility] on above:Performed By: #### A1C #### [facility] [address] [place] [address] Dr. Sheldon Call 87-79-5772Tton [Mass/Vol]58.0 ug/xMOssdkx71.0-170.0The [facility] on above:Performed By: #### IRON #### [facility] [address] [place] [address] Dr. Sheldon BaxterID PROFILEon 72-70-7700WDCA-HDL RATIO NORMSCleveland ClinicCombeaumont hospital on above:Result Comment: 3.3 - 4.4 LOW RISK 4.4 - 7.1 AVERAGE RISK 7.1 - 11.0 MODERATE RISK >11.0 HIGH RISKPerformed By: #### LIPID, TSH, CMP #### [facility] [address] [place] [address] Dr. Sheldon CorderoCholesterol [Mass/Vol]251 mg/dLCritically high<=200The [facility] on above:Performed By: #### LIPID, TSH, CMP #### [facility] [address] [place] [address] Dr. Sheldon Baumannesterol in HDL [Mass/Vol]70 mg/dLCritically rfje06-62Wbc [facility] on above:Performed By: #### LIPID, TSH, CMP #### [facility] [address] [place] [address] Dr. Sheldon Baumannesterol in LDL [Mass/Vol]161.4 mg/dLOhio State [facility] Hospital on above:Performed By: #### LIPID, TSH, CMP #### [facility] [address] [address] [address] Shedlon CorderoCholesterol.total/Cholesterol in HDL [Mass ratio]3.6 {ratio} NormalThe [facility] HospitalComment on above:Performed By: #### LIPID, TSH, CMP #### [facility] [address] [place] [address] Dr. Sheldon Adams NORMAL> or = 60 mg/dl - LOW CARDIOVASCULAR RISK <40 mg/dl - HIGH CARDIOVASCULAR RISKWVUMedicine Barnesville HospitalComment on above:Performed By: #### LIPID, TSH, CMP #### [facility] [address] [place] [address] Dr. Sheldon CorderoLDL CALC NORMALSEE BELOWNoSt. Anthony's HospitalComment on above:Result Comment: <100 mg/dl OPTIMAL 100 - 129 mg/dl NEAR OR ABOVE OPTIMAL 130 - 159 mg/dl BORDERLINE HIGH 160 - 189 mg/dl HIGH >190 mg/dl VERY HIGH Performed By: #### LIPID, TSH, CMP #### [facility] [address] [place] [address] Dr. Sheldon CorderoTriglyceride [Mass/Vol]98 mg/dLNormal<=150The [facility] Comment on above:Performed By: #### LIPID, TSH, CMP #### [facility] [address] [place] [address] Dr. Sheldon CorderoVLDL CALC19.6 mg/dLNoSt. Anthony's HospitalComment on above: Performed By: #### LIPID, TSH, CMP #### [facility] [address] [place] [address] Dr. Sheldon CorderoPROF 14(COMP METB)on 24-06-3199Xgkjuwq [Mass/Vol]3.4 g/dLNormal 3.4-5.0The [facility] HospitalComment on above:Performed By: #### LIPID, TSH, CMP #### [facility] [address] [place] [address] Dr. Sheldon CorderoAlbumin/Globulin [Mass ratio]0.9 {ratio}NormalThe [facility] HospitalComment on above:Performed By: #### LIPID, TSH, CMP #### [facility] [address] [address] [address] Sheldon GriggsP [Catalytic activity/Vol]107 U/WRimiuz18-558Cxa [facility] HospitalComment on above:Performed By: #### LIPID, TSH, CMP #### [facility] [address] [address] [address] Sheldon GriggsT [Catalytic activity/Vol]17 U/TFpkemp00-23Ekk [facility] HospitalComment on above:Performed By: #### LIPID, TSH, CMP #### [facility] [address] [address] [address] Sheldon Bradleyon gap [Moles/Vol]10.9 mmol/LNormalThe [facility] Comment on above:Performed By: #### LIPID, TSH, CMP #### [facility] [address] [address] [address] Sheldon CorderoAST [Catalytic activity/Vol]11 U/LCritically cjr00-32Nhm [facility] HospitalComment on above:Performed By: #### LIPID, TSH, CMP #### [facility] [address] [address] [address] Sheldon CorderoBilirubin [Mass/Vol]0.3 mg/dLNormal0.2-1.0The [facility] Comment on above:Performed By: #### LIPID, TSH, CMP #### [facility] [address] [address] [address] Sheldon CorderoCalcium [Mass/Vol]9.1 mg/dLNormal8.5-10.1The [facility] Comment on above:Performed By: #### LIPID, TSH, CMP #### [facility] [address] [address] [address] Sheldon CorderoChloride [Moles/Vol]106 mmol/SRjikpf20-344Anb [facility] Comment on above:Performed By: #### LIPID, TSH, CMP #### [facility] [address] [address] [address] Sheldon CorderoCO2 [Moles/Vol]30.6 mmol/JFomhdi63.0-32.0The [facility] Comment on above:Performed By: #### LIPID, TSH, CMP #### [facility] [address] [address] [address] Sheldon CorderoCreatinine [Mass/Vol]0.93 mg/dLNormal0.55-1.02The [facility] HospitalComment on above:Performed By: #### LIPID, TSH, CMP #### [facility] [address] [address] [address] Sheldon FortuneGFR-AF NIGERIEN>60Normal>=60The [facility] HospitalComment on above:Performed By: #### LIPID, TSH, CMP #### [facility] [address] [address] [address] Sheldon FortuneGFR-NON AF NIGERIEN=60Normal>=60The [facility] HospitalComment on above:Performed By: #### LIPID, TSH, CMP #### [facility] [address] [address] [address] Sheldon CorderoGlobulin (S) [Mass/Vol]4.0 g/dLNormalThe [facility] HospitalComment on above:Performed By: #### LIPID, TSH, CMP #### [facility] [address] [address] [address] Sheldon CorderoGlucose [Mass/Vol]101 mg/xOMhfbwp87-450DgoOhiohealth Pickerington Methodist Hospital Comment on above:Performed By: #### LIPID, TSH, CMP #### [facility] [address] [address] [address] Sheldon CorderoPotassium [Moles/Vol]4.5 mmol/LNormal3.5-5.1The [facility] Comment on above:Performed By: #### LIPID, TSH, CMP #### [facility] [address] [address] [address] Sheldon CorderoProtein [Mass/Vol]7.4 g/dLNormal6.4-8.2The [facility] Comment on above:Performed By: #### LIPID, TSH, CMP #### [facility] [address] [address] [address] Sheldon CorderoSodium [Moles/Vol]143 mmol/CSweirj176-758Jpr [facility] Comment on above:Performed By: #### LIPID, TSH, CMP #### [facility] [address] [place] [address] Dr. Sheldon Moon nitrogen [Mass/Vol]18.0 mg/dLNormal7.0-18.0The [facility] HospitalComment on above:Performed By: #### LIPID, TSH, CMP #### [facility] [address] [place] [address] Dr. Sheldon Moon nitrogen/Creatinine [Mass ratio]19.4 mg/mgNormalThe [facility] HospitalComment on above:Performed By: #### LIPID, TSH, CMP #### [facility] [address] [place] [address] Dr. Sheldon Galvez 12-62-5673PPH0.774 uIU/mLNormal0.358-3.740The [facility] HospitalComment on above:Performed By: #### LIPID, TSH, CMP #### [facility] [address] [place] [address] Dr. Sheldon CorderoLactic Acidon 16-70-2040Wfoduye [Mass/Vol]7.5 mg/dLNormal4.5-19.8 [facility] CampusComment on above:Performed By: #### [id number] #### [facility] [address], [place] [address]FPQLho 26-03-5984ZALLSdxtyo Visit (HILARIO) JOSS WASHINGTON ([id number]) 1950 F Date Time Provider Department 06/11/18 [...] pathologic stage 0 (Tis Nx ?M0), ER-positive, DE-positive, s/p partial mastectomy ? ? INTERVAL HISTORY: [...] M.D., FACRO ? cc: Lawrence Rai MD [address] [place] [address] ? Katherine Downs MD [facility] [place] [place] [address] ? Dr. Berman ? This note was dictated with Jazmin Naturally Speaking and may contain some grammatical errors due to limitations of the software. Dexter De León RN, was present in the examination room throughout the encounter. Referring Provider: LAWRENCE RAI [[id number]] Allergies As of Date: 06/11/2018 (No Known Allergies) Date Reviewed: 06/11/2018 Reviewed by: Dexter (Rn) CLARA De León - Fully Assessed Reason for Visit: Breast Cancer [519] Primary Visit Diagnosis:Ductal carcinoma in situ (DCIS) of right breast [D05.11] Order(s):[facility]AT [[id number]] Order #: [id number] FUTURE Prescriptions as of 06/11/2018 Sig: VENTOLIN [...] Encounter Status:Closed by FARHEEN CRONIN MD on 06/11/18[facility] 03-33-6182Wrtdkkg mass concHNO ID: [id number] Author: Farheen Cronin Service: ? Author Type: Physician Type: Progress Notes Filed: 06/11/2018 2:48 PM Note Text: Radiation Oncology - Follow Up Note PATIENT NAME: Joss Washington PATIENT DIAGNOSIS: ?DCIS of the Right breast, UIQ, pathologic stage 0 (Tis Nx ?M0), ER-positive, DE-positive, s/p partial mastectomy ? ? INTERVAL HISTORY: [...] examination. ? Signed by: Farheen Cronin M.D., [facility] ? cc: Lawrence Rai MD [address] [place] [address] ? Katherine Downs MD [facility] [address] [place] [address] ? Dr. Berman ? This note was dictated with Jazmin Naturally Speaking and may contain some grammatical errors due to limitations of the software. Dexter De León RN, was present in the examination room throughout the encounter.NormalCommunity Memorial HospitalCNOVon 29-33-3496UWZXKmpies Visit (RADTSA) JOSS WASHINGTON ([id number]) 1950 F Date Time Provider Department 02/12/18 [...] pathologic stage 0 (Tis Nx ?M0), ER-positive, DE-positive, s/p partial mastectomy ? ? INTERVAL HISTORY: [...] M.D., KAY ? cc: Lawrence Rai MD [facility] [place] [address] ? Katherine Downs MD [facility] [address] [place] [address] ? Dr. Berman ? This note was dictated with Radhaon Naturally Speaking and may contain some grammatical errors due to limitations of the software. Dexter De León RN, was present in the examination room throughout the encounter. Referring Provider: LAWRENCE RAI [[id number]] Allergies As of Date: 02/12/2018 (No Known [...] Encounter Status:Closed by FARHEEN CRONIN MD on 02/12/18[facility] 96-10-0942Pvqtecq mass concHNO ID: [id number] Author: Farheen Cronin Service: (none) Author Type: Physician Type: Progress Notes Filed: 02/12/2018 10:40 AM Note Text: Radiation Oncology - Follow Up Note PATIENT NAME: Joss Washington PATIENT DIAGNOSIS: ?DCIS of the Right breast, UIQ, pathologic stage 0 (Tis Nx ?M0), ER-positive, DE-positive, s/p partial mastectomy ? ? INTERVAL HISTORY: [...] examination. ? Signed by: Farheen Cronin M.D., [facility] ? cc: Lawrence Rai MD [address] [place] [address] ? Katherine Downs MD [facility] [address] [place] [address] ? Dr. Berman ? This note was dictated with Jazmin Naturally Speaking and may contain some grammatical errors due to limitations of the software. Dexter De León RN, was present in the examination room throughout the encounter.[facility] HospitalPROESSon 07-92-3134Orwfbsy mass conc HNO ID: [id number] Author: Lisa Willams Service: (none) Author Type: [...] Dr. Downs at this time. Lisa Willams APRN.[facility] Medical CenterCNOVbere [id number] Office Visit (RADTSA) JOSS WASHINGTON ([id number]) 1950 F Date Time Provider Department 12/04/17 [...] pathologic stage 0 (Tis Nx ?M0), ER-positive, DE-positive, s/p partial mastectomy ? ? INTERVAL HISTORY: [...] M.D., FACRO ? cc: Lawrence Rai MD [address] [place] [id number] ? Katherine Downs MD [facility] [address] [place] [address] ? Dr. Berman ? This note was dictated with Dragon Naturally Speaking and may contain some grammatical errors due to limitations of the software. Anatoliy Ha MA was present in the examination room throughout the encounter. Referring Provider: FARHEEN CRONIN [[id number]] Allergies As of Date: 12/04/2017 (No Known [...] Encounter Status:Closed by FARHEEN CRONIN MD on 12/04/17[facility] HospitalCNOVSPon 82-67-8700APXHGWGhsgp () Office (HEMASA) JOSS WASHINGTON ([id number]) 1950 F Date Time Provider Department 12/04/17 11:00 AM LISA WILLAMS (MATTIE) CHRISS During your visit today, we recorded [...] Dr. Downs at this time. Lisa Willams APRN.MACHINE ZIPPER TRIMMER Referring Provider: FARHEEN CRONIN [[id number]] Allergies As of Date: 12/04/2017 (No Known [...] breast*INVALID FOR* Encounter Status:Closed by LISA WILLAMS MACHINE ZIPPER TRIMMER on 12/10/17[facility] 91-02-5391Bnqqgty mass concHNO ID: [id number] Author: Farheen Cronin Service: (none) Author Type: Physician Type: Progress Notes Filed: 12/04/2017 1:55 PM Note Text: Radiation Oncology - Follow Up Note PATIENT NAME: Joss Washington PATIENT DIAGNOSIS: DCIS of the Right breast, UIQ, pathologic stage 0 (Tis Nx ?M0), ER-positive, DE-positive, s/p partial mastectomy ? ? INTERVAL HISTORY: [...] M.D., FACRO ? cc: Lawrence Rai MD [address] [place] [phone] ? Katherine Downs MD [facility] [address] [place] [address] ? Dr. Berman ? This note was dictated with Jazmin Naturally Speaking and may contain some grammatical errors due to limitations of the software. Anatoliy Ha MA was present in the examination room throughout the encounter.[facility] 18-46-2400DDRSLttunw Visit (RADTSA) JOSS WASHINGTON ([id number]) 1950 F Date Time Provider Department 10/30/17 [...] pathologic stage 0 (Tis Nx M0), ER-positive, DE-positive, s/p partial mastectomy ? INTERVAL HISTORY: Mrs. [...] Cronin M.D., FACRO cc: Lawrence Rai MD [address] [place] [phone] ? Katherine Downs MD [facility] [address] [place] [address] ? Dr. Berman ? This note was dictated with Dragon Naturally Speaking and may contain some grammatical errors due to limitations of the software. Dexter De León RN was present in the examination room throughout the encounter. Referring Provider: FARHEEN CRONIN [[id number]] Allergies As of Date: 10/30/2017 (No Known [...] Encounter Status:Closed by FARHEEN CRONIN MD on 10/30/17[facility] 48-97-1488Lpygqqo mass concHNO ID: [id number] Author: Farheen Cronin Service: (none) Author Type: Physician Type: Progress Notes Filed: 10/30/2017 3:16 PM Note Text: Radiation Oncology - Follow Up Note PATIENT NAME: Joss Washington PATIENT DIAGNOSIS: DCIS of the Right breast, UIQ, pathologic stage 0 (Tis Nx M0), ER-positive, DE-positive, s/p partial mastectomy ? INTERVAL HISTORY: Mrs. [...] follow-up examination. Signed by: Farheen Cronin M.D., [facility] cc: Lawrence Rai MD [address] [place] [phone] ? Katherine Downs MD [facility] [address] [place] [address] ? [address]. Berman ? This note was dictated with Jazmin Naturally Speaking and may contain some grammatical errors due to limitations of the software. Dexter De León RN was present in the examination room throughout the encounter.NormalCommunity Memorial HospitalPROGRESSon 09-12-3891Pzaldrr mass conc HNO ID: [id number] Author: Farheen Cronin Service: (none) Author Type: Physician Type: Progress Notes Filed: 10/17/2017 12:34 AM Note Text: [facility] Radiation Oncology Department RADIATION ONCOLOGY - COMPLETION NOTE PATIENT: FELIXJOSS : 1950 DATES OF TREATMENT: 08/27/2017 to 10/15/2017 DIAGNOSIS: DCIS of the Right breast, UIQ, pathologic stage 0 (Tis Nx M0), ER-positive, DE-positive, s/p partial mastectomy AREA TREATED: Right Breast [...] / JULIETTE 10/16/20179:57 AM cc: Dr. Lawrence DowGeorgetown Behavioral HospitalCNOVon 11-89-6380VESIGbspul Visit (RADTSA) JOSS WASHINGTON ([id number]) 1950 F Date Time Provider Department 10/14/17 [...] the Right?breast, UIQ,?pathologic?stage 0 (Tis Nx M0),?ER-positive, DE-positive, s/p?partial mastectomy ? COURSE: definitive AREA TREATED: [...] Allergies) Date Reviewed: 10/07/2017 Reviewed by: Dexter (Rn) CLARA De León [...] Notes: >> Dexter (Rn) CLARA De León Tue Oct 14, 2017 10:15 AM Status: Signed Status: Post-menopausal. 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 COURSE: definitive AREA TREATED: [...] radiation treatment as planned. ? Farheen Cronin MD?NormalCommunity Memorial HospitalCNOVon 82-68-1638MIBJ Office Visit (RADTSA) JOSS WASHINGTON ([id number]) 1950 F Date Time Provider Department 10/07/17 [...] the Right?breast, UIQ,?pathologic?stage 0 (Tis Nx M0),?ER-positive, DE-positive, s/p?partial mastectomy ? COURSE: definitive AREA TREATED: [...] Notes: >> Dexter Sykes) CLARA De León loni Oct 07, 2017 10:14 AM Status: Signed Status: Post-menopausal. 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 COURSE: definitive AREA TREATED: [...] radiation treatment as planned. ? Farheen Cronin MD?NormalCommunity Memorial HospitalCNOVon 32-38-1500HTJD Office Visit (RADTSA) FELIXJOSS MIX ([id number]) 1950 F Date Time Provider Department 09/30/17 10:15 AM FARHEEN CRONIN During your visit today, we recorded the following information about you: Blood pressure Weight 128/86 130.6 kg Anatoliy Graves, HALL MONITOR, CLRAA 09/30/2017 10:27 AM Signed Status: Post-menopausal. 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 COURSE: definitive AREA TREATED: [...] FOR* Visit Notes: >> Anatoliy Ha RN loni Sep 30, 2017 10:21 AM Status: Signed Status: Post-menopausal. 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 COURSE: definitive AREA TREATED: [...] radiation treatment as planned. ? Farheen Cronin MD?NormalCommunity Memorial HospitalCNOVon 37-63-6557ORRR Office Visit (RADTSA) JOSS WASHINGTON ([id number]) 1950 F Date Time Provider Department 09/22/17 [...] the Right?breast, UIQ,?pathologic?stage 0 (Tis Nx M0),?ER-positive, DE-positive, s/p?partial mastectomy ? 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 COURSE: definitive AREA TREATED: [...] parameters. Continue radiation treatment as planned. ? Jose EscaleraalCUniversity Hospitals Conneaut Medical Center and Differentialon 96-31-9665Dtd Baso0.03 k/uLNormal0.00-0.10Community Memorial HospitalAbs Mono0.45 k/uLNormal0.00-0.86Community Memorial HospitalAbs Neut5.16 k/uLNormal1.45-7.50 Community Memorial HospitalBasophils/100 WBC (Bld)0.4 %NormalCommunity Memorial HospitalEosinophils #/vol (Bld)0.23 10*3/uLNormal0.00-0.45Community Memorial HospitalEosinophils/100 WBC (Bld)3.2 %NormalCommunity Memorial Hospital Erythrocyte distribution width Ratio (RBC)15.0 %Xybtha54.5-15.0Community Memorial HospitalHematocrit Volume Fraction (Bld)39.1 %Ocefjx36.0-46.0Community Memorial HospitalHemoglobin mass conc (Bld)13.0 g/tWPydvhb53.5-15.5CMercy Health Defiance HospitalvelandLymphocytes #/vol (Bld)1.40 10*3/uLNormal1.00-4.00Community Memorial HospitalLymphocytes/100 WBC (Bld)19.3 %NormalTrinity Health System West CampusH Entitic mass (RBC)30.6 xZKurryq32.0-34.0Tr[facility] System [facility] CampusHC mass conc (RBC)33.2 g/aABknmri80.5-36.0Tr[facility] System West CampusV Entitic volume (RBC) 92.0 bWItyvft85.0-100.0Community Memorial HospitalMonocytes/100 WBC (Bld)6.2 % NormalCommunity Memorial HospitalNeutrophils/100 WBC (Bld)70.9 %NormalCommunity Memorial HospitalPlatelet mean volume Entitic volume (Bld)9.5 fLNormal9.0-12.7 Community Memorial HospitalPlatelets #/vol (Bld)272 10*3/qONwxdlv217-842Czbdkgutn Clinic ClevelandRBC #/vol (Bld)4.25 10*6/uLNormal3.90-5.20Cherrington HospitalvelandWBC #/vol (Bld)7.27 10*3/uLNormal3.70-11.00[facility] CNOVon 07-49-5291ZWRWGwgqyj Visit (RADTSA) JOSS WASHINGTON ([id number]) 1950 F Date Time Provider Department 09/18/17 10:10 AM LAB/PORT VIJI RICH During your visit today, we recorded the following information about you: Dexter De León, RN, RN 09/18/2017 10:02 AM Signed Joss Washington presents in office today for: Lab Draw only . Ordering Provider: Farheen Cronin M.D. Test (s) ordered: CBC Method for obtaining blood: Phlebotomy was performed, accessing left antecubital vein. Needle removed intact. Dressing secured. Patient denies discomfort, dizziness, light-headedness or weakness and left the department without assist. Dexter De León RN Referring Provider: FARHEEN CRONIN [[id number]] Allergies As of Date: 09/18/2017 (No Known [...] Notes: >> Dexter Sykes) CLARA De León [facility] Sep 18, 2017 10:01 AM Status: Signed Joss Nahomy Washington presents in office today for: Lab Draw only . Ordering Provider: Farheen Cronin M.D. Test (s) ordered: CBC Method for obtaining blood: Phlebotomy was performed, accessing left antecubital vein. Needle removed intact. Dressing secured. Patient denies discomfort, dizziness, light-headedness or weakness and left the department without assist. Dexter De León RN Encounter Status:Closed by DEXTER DE LEÓN on 09/18/17[facility] 82-69-5426DBYGVqnoik Visit (RADTSA) JOSS WASHINGTON ([id number]) 1950 F Date Time Provider Department 09/16/17 [...] the Right?breast, UIQ,?pathologic?stage 0 (Tis Nx M0),?ER-positive, DE-positive, s/p?partial mastectomy ? COURSE: definitive AREA TREATED: [...] Notes: >> Dexter Sykes) CLARA De León loni Sep 16, 2017 10:51 AM Status: Signed Status: Post-menopausal. 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 COURSE: definitive AREA TREATED: [...] radiation treatment as planned. ? 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 COURSE: definitive AREA TREATED: [...] Alert and oriented. No acute distress. Skin erythema/hyperpigmentation: No Desquamation: No TOXICITY ASSESSMENT (CTC v4.0): [...] if discomfort progresses requiring intervention. Signed by: Jose NixonSt. Charles HospitalAugustus 17-44-6664XSMJ Office Visit (RADTSA) JOSS WASHINGTON ([id number]) 1950 F Date Time Provider Department 09/08/17 [...] the Right?breast, UIQ,?pathologic?stage 0 (Tis Nx M0),?ER-positive, DE-positive, s/p?partial mastectomy ? COURSE: definitive AREA TREATED: [...] Alert and oriented. No acute distress. Skin erythema/hyperpigmentation: No Desquamation: No TOXICITY ASSESSMENT (CTC v4.0): [...] Encounter Status:Closed by JEM SANTANA MD on 6/21/18[facility] ShawC and Differentialon 98-73-2045Hif Baso0.03 k/uLNormal<0.11CChillicothe Hospital on above:Performed By: #### CBCDIF ####[place] [address] [address]CS[address], [place] [phone] Mono0.45 k/uL Normal<0.87[facility] on above:Performed By: #### CBCDIF ####[place] [address], [place] [phone] Neut3.74 k/uLNormal1.45-7.50[facility] on above:Performed By: #### CBCDIF ####[place] [address] [employer], [place] [phone]/100 WBC (Bld)0.5 %NormalSelect Medical Specialty Hospital - Canton on above:Performed By: #### CBCDIF ####[place] [address] [employer], [place] [phone]=9.68 NormalSelect Medical Specialty Hospital [facility] on above:Result Comment: Preliminary result. Interpret with caution. Final results may vary. Results requested and read back by: /09/04/1710/15/1026/OSITO CASTELLONPerformed By: #### CBCDIF ####[place] [address] [address], [place] [phone] #/vol (Bld)0.23 10*3/uLNormal<0.46[facility] on above: Performed By: #### CBCDIF ####[place] [address] [address], [place] [phone]/100 WBC (Bld)3.7 %Normal [facility] on above:Performed By: #### CBCDIF ####[place] [address] [place] [phone] distribution width Ratio (RBC)15.5 %High11.5-15.0[facility] on above:Performed By: #### CBCDIF ####[place] [phone] Volume Fraction (Bld)37.1 %Uludhu71.0-46.0[facility] on above: Performed By: #### CBCDIF ####[place] [phone] mass conc (Bld)12.2 g/dLNormal 11.5-15.5CChillicothe Hospital on above:Performed By: #### CBCDIF ####[place] [phone] #/vol (Bld)1.78 10*3/uLNormal1.00-4.00[facility] on above:Performed By: #### CBCDIF ####[place] [phone]/100 WBC (Bld)28.6 %NormalSelect Medical Specialty Hospital - [facility] on above:Performed By: #### CBCDIF ####[place] [phone] Entitic mass (RBC)30.3 oZRxamsc01.0-34.0[facility] on above:Performed By: #### CBCDIF ####[place] [phone] mass conc (RBC) 32.9 g/jKInojyf19.5-36.0[facility] on above:Performed By: #### CBCDIF ####[place] [phone] Entitic volume (RBC)92.1 eKFolspa52.0-100.0[facility] on above:Performed By: #### CBCDIF ####[place] [address] [address]CM[address] [phone]/100 WBC (Bld)7.2 %NormalPremier Health Atrium Medical Centerment on above:Performed By: #### CBCDIF ####[place] [address] [address] Av[address] [place] [phone]/100 WBC (Bld)60.0 %NormalCommunity Memorial Hospital Comment on above:Performed By: #### CBCDIF ####[address] AvScott [place] [phone] mean volume Entitic volume (Bld)9.3 fLNormal9.0-12.7CChillicothe Hospital on above:Performed By: #### CBCDIF ####[place] [address] [address] [phone] #/vol (Bld)285 10*3/gRRpujdb719-024HtipuurdlSelect Medical Specialty Hospital [facility] on above:Performed By: #### CBCDIF ####[place] [address] [address] [place] [phone] #/vol (Bld)4.03 10*6/uLNormal3.90-5.20[facility] on above:Performed By: #### CBCDIF ####[address] AvScott [place] [phone] #/vol (Bld)6.19 10*3/uLNormal3.70-11.00[facility] on above:Performed By: #### CBCDIF ####[place] [address] [address] [place] [phone] 09-04-2017 CNOVOffice Visit (RADTSA) JOSS WASHINGTON ([id number]) 1950 F Date Time Provider Department 09/04/17 [...] De León RN Referring Provider: FARHEEN CRONIN [[id number]] Allergies As of Date: 09/04/2017 (No Known [...] Visit Notes: >> Dexter De León RN [facility] Sep 04, 2017 12:44 PM Status: [...] Encounter Status:Closed by DEXTER DE LEÓN on 09/04/17[facility] 05-28-1144THABMnulmq Visit (RADTSA) JOSS WASHINGTON ([id number]) 1950 F Date Time Provider Department 09/02/17 [...] pathologic stage 0 (Tis Nx M0), ER-positive, DE-positive, s/p partial mastectomy COURSE: definitive AREA TREATED: [...] FOR* Visit Notes: >> Anatoliy Ha RN loni Sep 02, 2017 10:09 AM Status: Signed Status: Post-menopausal. Encounter Status:Closed by FARHEEN CRONIN MD on 09/02/17[facility] 36-53-9935Xmaxgsi mass concHNO ID: [id number] Author: Farheen Cronin Service: (none) Author Type: Physician Type: Progress Notes Filed: 09/02/2017 1:31 PM Note Text: Radiation Oncology - On Treatment Review (OTR) Note PATIENT NAME: Joss Washington PATIENT DIAGNOSIS: DCIS of the Right breast, UIQ, pathologic stage 0 (Tis Nx M0), ER-positive, DE-positive, s/p partial mastectomy COURSE: definitive AREA TREATED: [...] Continue radiation treatment as planned. Farheen Cronin MDPomerene Hospital 13-39-7434AHHHWdkini Visit (RADTSA) JOSS WASHINGTON ([id number]) 1950 F Date Time Provider Department 08/27/17 1:30 PM JEM SANTANA During your visit today, we recorded the following information about you: Dexter De León RN, RN 08/27/2017 2:20 PM Signed Status: Post-menopausal. CLARA Mahmood MD 09/12/2017 12:12 AM Signed RADIATION ONCOLOGY- ON TREATMENT REVIEW (OTR) NOTE PATIENT NAME: Joss Washington PATIENT DIAGNOSIS: DCIS?of the Right?breast, UIQ,?pathologic?stage 0 (Tis Nx M0),?ER-positive, DE-positive, s/p?partial mastectomy ? Plan and MU calculations [...] Alert and oriented. No acute distress. Skin erythema/hyperpigmentation: No Desquamation: No TOXICITY ASSESSMENT (CTC v4.0): [...] Jem Santana MD Referring Provider: JEM SANTANA [[id number]] Allergies As of Date: 08/27/2017 (No Known [...] Encounter Status:Closed by JEM SANTANA MD on 09/12/17[facility] 52-10-0067Tzwykxe mass concHNO ID: [id number] Author: Jem Santana Service: (none) Author Type: Physician Type: Progress Notes Filed: 09/12/2017 12:12 AM Note Text: RADIATION ONCOLOGY- ON TREATMENT REVIEW (OTR) NOTE PATIENT NAME: Joss Washington PATIENT DIAGNOSIS: DCIS?of the Right?breast, UIQ,?pathologic?stage 0 (Tis Nx M0),?ER-positive, DE-positive, s/p?partial mastectomy ? Plan and MU calculations [...] Alert and oriented. No acute distress. Skin erythema/hyperpigmentation: No Desquamation: No TOXICITY ASSESSMENT (CTC v4.0): [...] through the course of treatment. Signed by: Jose NixonTrinity Health System [facility] CT NON-RADIOLOGY -NBNRon 28-95-6930NTEZ CT NON-RADIOLOGY -[facility] - CT Images - Obtained Outside of Imaging [place] [id number]_IDCSIACNNormalCommunity Memorial HospitalCNCNPATEDon 08-20-2017 CNCNPATEDEducation (RADTSA) JOSS WASHINGTON ([id number]) 1950 F Date Time Provider Department 08/20/17 ANATOLIY HA LPN Reason for Visit: Patient Education [91] Visit Notes: >> Antaoliy Ha RN FriAugust 20, 2017 3:46 PM Status: Signed Radiation Therapy - Patient Education Note PATIENT NAME: Joss Washington PATIENT August 20, 2017 [facility]: [facility] READINESS TO LEARN Cognitive Ability: Alert [...] need for 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 Was approved? No Signed by: Anatoliy Ha [...] mouth. Encounter Status:Closed by ANATOLIY HA on 08/20/17[facility] Hospitalon 75-41-2383VSZIQlithm Visit (RADTSA) JOSS WASHINGTON ([id number]) 1950 F Date Time Provider Department 08/20/17 [...] pathologic stage 0 (Tis Nx M0), ER-positive, DE-positive, s/p partial mastectomy. HPI: 67 year old [...] with her . 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 COMPLETE REVIEW [...] Farheen Cronin MD cc: Lawrence Rai MD [address] [place] [phone] Katherine Downs MD [facility] [address] [place] [address] Dr. Berman This note was dictated with Radhaon Naturally Speaking and may contain some grammatical errors due to limitations of the software. Referring Provider: KATHERINE DOWNS [[id number]] Allergies As of Date: 08/20/2017 (No Known [...] Encounter Status:Closed by FARHEEN CRONIN MD on 08/20/17[facility] 55-52-5572Ubsetvu mass concHNO ID: [id number] Author: Farheen Cronin Service: (none) Author Type: Physician Type: Progress Notes Filed: 08/20/2017 3:39 PM Note Text: Radiation Oncology - New Patient/Consult Note PATIENT NAME: Joss Washington PATIENT REQUESTING PROVIDER: Dr. Katherine Downs DIAGNOSIS: 67 year old female with DCIS of the Right breast, UIQ, pathologic stage 0 (Tis Nx M0), ER-positive, DE-positive, s/p partial mastectomy. HPI: 67 year old [...] with her . 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 COMPLETE REVIEW [...] Farheen Cronin MD cc: Lawrence Rai MD [address] [place] [phone] Katherine Downs MD [facility] [address] [place] [facility] Dr. Berman This note was dictated with Dragon Naturally Speaking and may contain some grammatical errors due to limitations of the software.NormalCommunity Memorial HospitalProtein mass concHNO ID: [id number] Author: Farheen Cronin Service: (none) Author Type: Physician Type: Progress Notes Filed: 08/21/2017 12:34 AM Note Text: MIGEL WASHINGTONRICIA [id number] 08/20/2017 [facility] Radiation Oncology Department SIMULATION NOTE DATE OF SIMULATION: 08/20/2017 THERAPIST: Yuliana Gill MACHINE: [employer] Simulator DIAGNOSIS: Malignant neoplasm of upper-inner quadrant of right female iskhwlW78.211 AREA: CONTRAST: None Consent in Epic: Yes [...] Signed Farheen Cronin M.D. / NRS 08/20/20173:59 [facility] WestAbbey anderson concHNO ID: [id number] Author: Farheen Cronin Service: (none) Author Type: Physician Type: Progress Notes Filed: 08/27/2017 12:34 AM Note Text: JOSS WASHINGTON [id number] 08/20/2017 [facility] Department of [...] DVH. Electronically Signed Farheen Cronin M.D. 08/26/20171:02 PMNOhioHealth Marion General HospitalCNOVSPon 59-24-6797WKJWENBwkfn (SP) Office (HEMACL) JOSS WASHINGTON ([id number]) 1950 F Date Time Provider Department 08/14/17 [...] Katherine Downs MD Referring Provider: GEREMIAS BERMAN [[id number]] Allergies As of Date: 08/14/2017 (No Known Allergies) Date Reviewed: 08/14/2017 Reviewed by: Iesha Luis - Fully Assessed Primary Visit Diagnosis:Ductal carcinoma in situ (DCIS) of right breast [D05.11] Order(s):RAD/ONC CONSULT [9037] Order #: [id number]: 1 Prescriptions as of 08/14/2017 Sig: VENTOLIN [...] Encounter Status:Closed by KATHERINE DOWNS MD on 08/14/17[facility] 56-66-4081Fdsluag mass concHNO ID: [id number] Author: Katherine Downs Service: (none) Author Type: [...] is needed. - RAD/ONC CONSULT Katherine Downs MDMercy Health Lorain HospitalUS-US GUIDE LOCAL BREAST RT IMPORTon 07-92-7842YO-US GUIDE LOCAL BREAST RT IMPORTImages were obtained outside of [facility] [id number]_IDCSIACNNOhioHealth Marion General HospitalMAMM OUTSIDE DICOM IMPORT -NBNRon 02-70-9069AWZU OUTSIDE DICOM IMPORT -NBNRImages were obtained outside of [facility] [id number]_IDCSIACNNOhioHealth Marion General Hospital Encounters Encounter DateEncounter Type[facility] ProviderFacilityStart: 01-05-2025 End: 25-23-7929uwmamysfoxHNAQAHGKettering Health Troytart: 08-06-2024 End: 09-42-8779zivrwjfnzgXXVHSUniversity Hospitals Ahuja Medical Centertart: 05-07-2024 End: 76-00-1048cqnbduulrmADBORUniversity Hospitals [facility] Centertart: 03-16-2022 End: 87-22-3001dshbqobeisYJ LAWRENCE HOYFacility:J7Diywv: 36-19-6353lcoskgxqxdBJ LAWRENCE HOYFacility:S9Jnbao: 02-08-2022 End: 94-07-8764updfkzhkanMB LAWRENCE HOYFacility:B1Vvgoo: 11-30-2021 End: 30-04-9663xzctbhztmhAR LAWRENCE HOYFacility:F0Jpwlu: 06-11-2018 End: 42-26-8278Ganhpvu encounter procedureFARHEEN ARVIZUOhioHealth [facility] HospitalStart: 02-12-2018 End: 89-18-5887Ennlmqw encounter procedureFARHEEN ARVIZUOhioHealth Shelby HospitalStart: 12-04-2017 End: 32-74-9192Qgtxruj encounter procedureHOLJACOB (MACHINE ZIPPER TRIMMER) [facility]: 10-30-2017 End: 61-57-2477Pflafab encounter procedureFARHEEN ARVIZUOhioHealth [facility]in [facility] Hospital: 10-15-2017 End: 64-36-8340Mswhvgt encounter procedureKATHERINE [facility]: 10-14-2017 End: 81-35-8764Txejfdn encounter procedureFARHEEN BARBOSAHenry [facility] Hospital: 10-13-2017 End: 58-50-2115Kzrduin encounter procedureJAORIANA [facility]: 10-09-2017 End: 88-69-5690Rqhlffc encounter procedureJAORIANA [facility]: 10-08-2017 End: 86-31-2715Pgefisz encounter procedureJAORIANA [facility]: 10-07-2017 End: 53-01-7769Apfzfcz encounter procedureFARHEEN ARVIZUOhioHealth [facility]in [facility] Hospital: 10-06-2017 End: 95-60-7641Fegimzw encounter procedureJAORIANA [facility]: 10-03-2017 End: 75-56-9324Ywygzhs encounter procedureJAORIANA [facility]: 10-02-2017 End: 46-00-0249Inzdfqr encounter procedureJAORIANA [facility]: 09-30-2017 End: 77-70-7308Sscifvz encounter procedureFARHEEN ARVIZUOhio[facility]: 09-29-2017 End: 58-83-7320Mssryzt encounter procedureJAORIANA [facility]: 09-26-2017 End: 55-84-9936Qbmusdq encounter procedureJAORIANA [facility]: 09-25-2017 End: 92-62-8397Ycllytw encounter procedureJAORIANA [facility]: 09-24-2017 End: 50-57-8747Dhwmxan encounter procedureJAORIANA [facility]: 09-23-2017 End: 64-80-5604Ltngtws encounter procedureJAORIANA [facility]: 09-22-2017 End: 32-93-6680Rdudbzi encounter procedureFARHEEN ARVIZUOhio[facility]: 09-19-2017 End: 53-80-9873Hxdxjsd encounter procedureKATHERINE [facility]: 09-18-2017 End: 99-31-0912Mxldzbf encounter procedureKHKHANHAdrián Celeste LUIS MANUELROMINAOhioHealth Shelby HospitalStharrison: 09-17-2017 End: 51-32-3542Crclhid encounter procedureKATHERINE [facility]: 09-16-2017 End: 52-44-1147Frvtvyf encounter procedureKHKHANHAdrián Celeste LUHLETASelect [facility]: 09-15-2017 End: 89-35-0985Znpadej encounter procedureJAORIANA [facility]: 09-12-2017 End: 13-28-4796Lfguuwl encounter procedureJAOIRANA [facility]: 09-11-2017 End: 22-07-3668Ykhieas encounter procedureKATHERINE [facility]: 09-10-2017 End: 21-40-0209Nqjdnqj encounter procedureKATHERINE [facility]: 09-09-2017 End: 40-24-0966Yggowzh encounter procedureJAORIANA [facility]: 09-08-2017 End: 00-56-6685Wcdqfij encounter procedureSACAROLINE [facility] Start: 09-05-2017 End: 44-69-6774Ypjofuk encounter procedureJAORIANA [facility]: 09-04-2017 End: 68-03-2895Efkqbtm encounter procedureKHKHANHAdrián Celeste LUIS MANUELROMINAOhioHealth Shelby HospitalStharrison: 09-03-2017 End: 89-83-0842Vpatppt encounter procedureKATHERINE [facility]: 09-02-2017 End: 68-55-9352Dlioplj encounter procedureKHMELODY Celeste LUHOhioHealth Shelby HospitalStharrison: 09-01-2017 End: 74-12-3107Vxrcdny encounter procedureJAORIANA [facility]: 08-29-2017 End: 73-21-8510Oaxvfpn encounter procedureJAORIANA [facility]: 08-28-2017 End: 98-42-8035Tjaqpkx encounter procedureJAORIANA [facility]: 08-27-2017 End: 14-47-3110Byjwmps encounter procedureSACAROLINE [facility] Start: 08-20-2017 End: 52-84-5426Hkxbrqu encounter procedureFARHEEN GalvanMercy Health West HospitalStart: 08-14-2017 End: 50-13-4917Rddtdjo encounter procedureKATHERINE BradfordMercy Health West Hospital Payers DatePayer CategoryPayerPolicy [id number] 1960Medicare [id number] Progress note 08-06-2024 Note Date & ColsKltrFomvuqof14-20-9924 [facility] Reason for cardiology [...] and right breast cancer Patient presented to [facility] on 03/18/2024 with vision changes which [...] Holter monitor 03/19/2024 Review (more content not included)...[facility] Progress note 05-07-2024 Note Date & YqsoIjrnOikfjspd17-36-3455 [facility] Reason for cardiology consult: TIA Chief Complaint: dyspnea on exertion HPI: Joss Washington is a 73 y.o. female with history of hypertension, hyperlipidemia, recent TIA, and right breast cancer Patient presented to [facility] on 03/18/2024 with vision changes which [...] has no past medical history of Stroke ([facility]). Surgical History She has a past [...] Recent TIA, no ische (more content not included)...[facility] Summary Purpose Family History No Family History Records FoundNo Family History Records FoundNo Family History Records FoundNo Family History Records Found Advance Directives No Advanced Directives Records FoundNo Advanced Directives Records FoundNo Advanced Directives Records FoundNo Advanced Directives Records Found Additional Source Comments INFORMATION SOURCE (unrecogn ized section and content) DATE CREATED AUTHOR 06/15/2018 [facility] DATE CREATED AUTHOR AUTHOR'S ORGANIZ ATION 07/26/2019 [facility] DATE CREATED AUTHOR AUTHOR'S ORGANIZ ATION 03/22/2022 [facility] DATE CREATED AUTHOR AUTHOR'S ORGANIZ ATION 01/10/[address] [facility] FOR RECORDS PERTAINING TO PATIENTS [...] BE BASED ON THE PRIMARY CLINICAL RECORDS. [facility] [employer] [facility]. provides no warranty or guarantee of the accuracy or completeness of information in this document.
--- OUTSIDE RECORDS SUMMARY | 2025-02-10 07:22 | XMS_ITS | Clinical Summary ---
Author Organization [facility] Address [address] [place], [place] [address] Care Team Providers Care Biochemical Development Engineer Name Role Phone Paolo Rai MD Primary Care Provider [phone] Allergies No known active allergies Medications MedicationSigDispense QuantityRefillsLast FilledStart DateEnd DateStatus VENTOLIN HFA 90 mcg/actuation inhaler 06/17/2017Active citalopram (CELEXA) 40 mg tablet Take 40 mg by mouth once daily. 06/08/2017Active diltiazem (CARDIZEM) 120 mg tablet Take 120 mg by mouth three times daily. 06/18/2017Active lisinopril (ZESTRIL, PRINIVIL) 10 mg tablet Take 10 mg by mouth once daily. 06/17/2017Active Multivitamins chew Take by mouth.Active Active Problems ProblemNoted DateDiagnosed DateDuctal carcinoma in situ (DCIS) of right breast 08/14/2017 Family History Medical HistoryRelationCommentsCancerMotherRelationStatusCommentsMother Social History Tobacco UseTypesPacks/DayYears UsedDateSmoking Tobacco: FormerCigarettes Smokeless Tobacco: Never Comments:quit smoking in 197 5 Alcohol UseStandard Drinks/WeekCommentsNo0 (1 standard drink = 0.6 oz pure alcohol)Area Deprivation IndexAnswerDate RecordedNational Score (1-100), lower number is lower riskNot on file03/07/2020State Score (1-10), lower number is lower riskNot on file03/07/2020Data from: https://www.neighborhoodatlas.medicine.[facility].edu/. Last address used for calculationNot on file03/07/2020CommentsNoSex and Gender Information ValueDate RecordedSex Assigned at BirthNot on fileLegal IepUervra89/16/2018 12:59 PM EDTGender IdentityNot on fileSexual OrientationNot on file Last Filed Vital Signs Vital SignReadingTime TakenCommentsBlood Nrzinttx536/7406/11/2018 10:34 AM EDT Pxftm355406/11/2018 10:34 AM QPDSmreyiqxijk78.8 ??C (98.3 ??F)12/04/2017 10:47 AM EDTRespiratory Rqxi632606/11/2018 10:34 AM EDTOxygen Uxvpchgmyd86%06/11/2018 10:34 AM EDTInhaled Oxygen Concentration--Mnvlir431 kg (291 lb)06/11/2018 10:34 AM EDT Qqvdri037 cm (5' 2.99 )12/04/2017 10:36 AM EDTBody Mass Index51.56012/04/2017 10:36 AM EDT Plan of Treatment Health MaintenanceDue DateLast DoneCommentsAnxiety Zqgisdhmb11/26/1970Depression Hdsxoxhcs80/26/1970Hepatitis C Coqgdxdho59/26/1970DTaP,Tdap,Td Vaccine (1 - Tdap)1970Mammogram Hthucbnot61/26/1992CT Aastbeyqqxlr28/26/1997Cologuard (FIT-DNA)05/26/19969307Ogxlihovxwp28/26/1997Colorectal Cancer Lnqtczobc26/26/1997 Diabetes Pzckwujyi96/26/1997Fecal Occult Blood1996Lipid Screening 05/26/19964407Gwjycchuaqlew27/26/1997Shingrix Vaccine (1 of 2)2001Bone Density Xuqcpwjkt36/26/2017Pneumococcal Vaccine: 50+ (2 of 2 - PCV), 09/06/2016Advance Directive Cxrzmrafet40/01/2025ovid-19 Vaccine (1 - 2024- season)2024Influenza Vaccine (#1)5006/26/2017, 01/14/2016RSV Vaccine (1 - 1-dose 75+ series)2026 [place] [address] Care Teams Team MemberRelationshipSpecialtyStart Date Paolo Rai MD PCP - GeneralFamily Medicine07/14/17
--- OUTSIDE RECORDS SUMMARY | 2025-02-10 07:22 | XMS_ITS ---
Author Organization [facility] Address [address] [place], [place] [id number] Care Team Providers Care Milk House Worker Name Role Phone Paolo Rai MD Primary Care Provider [phone] Active Problems ProblemNoted DateDiagnosed DateDuctal carcinoma in [...] Dr. Harry Peterson Other Providers: Emily Block APRN.HEALTH COACH Treatment Summary Diagnosis Cancer Type/Histology Subtype: Right [...] Test How Often Oncology Team Mammogram Annually FISHERIES INSPECTOR or PCP Pap/pelvic exam As indicated by [...] (loss/gain) Resources you may be interested in: [email or web address] Advisory Software Engineer Juke Box Mechanic Art Therapy Viviane Wise (Breast Cancer Support Group) meets the friday of every month, from 4 PMto 5 PM, at [address] [place] [address] Prepared by: Emily Block APRN.HEALTH COACH Delivered on: December 04, 2017 - This [...]
--- OUTSIDE RECORDS SUMMARY | 2025-02-10 07:22 | XMS_ITS | Clinical Summary ---
Author Organization [facility] Address [address] [place] [address] Care Team Providers Care Mulcher Operator Name Role Phone Paolo Rai MD Primary Care Provider [phone] Social History Tobacco UseTypesPacks/DayYears UsedDateSmoking Tobacco: Never Assessed CommentsUnknownSex and Gender InformationValueDate RecordedSex Assigned at Not on fileLegal BsiBvuioq15/15/2023 8:21 PM EDTGender IdentityNot on fileSexual OrientationNot on file Last Filed Vital Signs Vital SignReadingTime TakenCommentsBlood Eljmyboc722/8004 12:00 PM EDT Pulse--Temperature--Respiratory Rate--Oxygen Saturation--Inhaled Oxygen Concentration--Igxscx579 kg (298 lb)07/14/2017 12:00 PM HGRQujptq340 cm (5' 3 ) 07/14/2017 12:00 PM EDTBody Mass Index52.7904 12:00 PM EDT Plan of Treatment DateTypeDepartmentCare Team (Latest Contact Info)Jbnogsbpndz21/12/2025 1:00 PM ESTOffice Visit [facility] [address] [place] [phone] Porsah Gary S, AUD [address] [place] [address] 03/15/2025 10:00 AM ESTOffice Visit [facility] [address] [place] [address] Maddi Simon MD [address] [place] [address] [place] [address] [place] [address] Care Teams Team MemberRelationshipSpecialtyStart DateEnd Paolo Rai MD [address] [place] [address] PCP - GeneralFamily Medicine12/24/24
--- OUTSIDE RECORDS SUMMARY | 2025-02-10 07:22 | XMS_ITS | Clinical Summary ---
Author Organization [employer] [facility] tem Address [id number] [place] [address] Care Team Providers Care Founder And President Name Role Phone Paolo Rai MD Primary Care Provider [phone] Social History Tobacco UseTypesPacks/DayYears UsedDateSmoking Tobacco: Never AssessedChildcare AnswerDate CjqddpwjIgnhkbfjvEbhszph29/12/2019EmploymentAnswerDate Recorded RspmohylmbEjgzwom53/12/2019CommentsUnknownSex and Gender Information ValueDate RecordedSex Assigned at BirthNot on fileLegal BmwSndvbi00/06/2015 11:53 AM EDTGender IdentityNot on fileSexual OrientationNot on file Plan of Treatment Not on file Medical Devices Not on file Insurance * Guarantor: Charlee Nagy TypeRelation to PatientDate of PhoneBilling AddressPersonal/PtupwjEtlg70/26/1951 (Home) [address] [place] [address] Care Teams Team MemberRelationshipSpecialtyStart DateEnd Date Paolo Rai MD [address] [place] [address] [facility] Bttjcvbp93/20/24
--- OUTSIDE RECORDS SUMMARY | 2025-02-10 07:22 | XMS_ITS | Clinical Summary ---
Author Organization [facility] Address [address] [place] [address] Care Team Providers Care Shrinking Machine Operator Name Role Phone Paolo Rai MD Primary Care Provider [phone] Allergies No known active allergies Medications MedicationSigDispense QuantityRefillsLast FilledStart DateEnd DateStatus dilTIAZem (Cardizem) 120 mg immediate release tablet Take 120 mg by mouth in the morning and at bedtime.Active lisinopril 40 mg tablet Take 1 tablet by mouth in the morning.03/30/2024ctive clopidogrel (Plavix) 75 mg tablet Take 75 mg by mouth in the morning.5Active simvastatin (Zocor) 20 mg tablet Take 20 mg by mouth at bedtime.01/06/2024ctive spironolactone (Aldactone) 50 mg tablet Indications:Essential hypertensionTake 1 tablet (50 mg) by mouth in the morning. 90 tablet /ctive Active Problems ProblemNoted DateDiagnosed DateSleep apnea08/06/2024TIA (transient ischemic attack)05/09/20241284Amcjsiyeziucmn82/09/2025Essential ayfwkpkshjuz59/09/2025DOE (dyspnea on exertion)05/09/2024Morbid obesity with BMI of 50.0-59.9, adult 05/09/2024Ductal carcinoma in situ (DCIS) of right cpehjc6008/14/2017 Encounters DateTypeDepartmentCare ZtmvSnwjnxpiwta84/08/2025 - 01/05/2025 11:59 PM EDT Hospital Encounter [facility] Radiology External Films [address] [place] [phone] Discharge Disposition: Home or Self Care ()from Last 3 Months Family History Medical HistoryRelationNameCommentsCancerFatherCoronary artery diseaseFather HyperlipidemiaFatherHypertensionFatherHyperlipidemiaMotherHypertensionMother StrokeMotherRelationNameStatusCommentsFatherMother Social History Tobacco UseTypesPacks/DayYears UsedDateSmoking Tobacco: FormerCigarettes Smokeless Tobacco: Never Tobacco Cessation:Counseling Given: Not Answered Alcohol UseStandard Drinks/WeekCommentsNot Currently0 (1 standard drink = 0.6 oz pure alcohol)CommentsUnknownSex and Gender InformationValueDate Recorded Sex Assigned at RcfqdRpanao91/10/2025 4:37 AM EDTLegal CbvNxorsb11/10/2025 11:02 AM ESTGender IdentityChoose not to lhiimdbc51/10/2025 4:37 AM EDTSexual OrientationChoose not to smujgvyu45/10/2025 4:37 AM EDT Last Filed Vital Signs Vital SignReadingTime TakenCommentsBlood Awsgpaxl204/8208/06/2024 10:28 AM EDT Uciwg078408/06/2024 10:28 AM EDTTemperature--Respiratory Rate--Oxygen Saturation 98%08/06/2024 10:28 AM EDTInhaled Oxygen Concentration--Ekyupt352 kg (299 lb) 08/06/2024 10:28 AM QGQGirdko177 cm (5' 3 )08/06/2024 10:28 AM EDTBody Mass Index52.9708/06/2024 10:28 AM EDT Plan of Treatment DateTypeDepartmentCare Team (Latest Contact Info)Qlzjhurnghl34/17/2025 2:45 PM ESTConsult [facility] Surgery Clinic [address] [place] [address] Valentin Cohen MD [address] [facility] [place] [address] 03/14/2025 9:20 AM ESTOffice Visit [facility] [address] [place] [address] Latonya Mac MD [address] [place] [address] Health MaintenanceDue DateLast DoneCommentsCT Mhyflvuuayum24/26/1952Colonoscopy 2Colorectal Cancer Onjbkfhkf19/26/1952Diabetes: Hemoglobin A1C 1951FIT-DNA1951FIT1951FOBT1951Medicare Annual Wellness (AWV)1950 7153Lizyqvyvqvekd35/26/1952Diabetes: Retinopathy Rmszkquki26/26/1962 Depression Jarfwhesp50/26/1964Diabetes: Urine Protein Drdfghxjr61/26/1971Adult Seopybd4405/26/19739490Yfogqzpon91/26/1992Zoster Vaccines (1 of 2)2001Fall Risk Wonqfzmct59/26/2017Pneumococcal Vaccine: 50+ Years (2 of 2 - PCV)06/26/2018 06/26/2017, 09/06/2016COVID-19 Vaccine (1 - season)2024Influenza Vaccine (#1)510/05/2023, 02/03/2023, 02/18/2022, Additional history existsHIB VaccinesAged OutNo longer eligible based on patient's age to complete this topicHPV VaccinesAged OutNo longer eligible based on patient's age to complete this topicIPV VaccinesAged OutNo longer eligible based on patient's age to complete this topicMeningococcal B VaccineAged OutNo longer eligible based on patient's age to complete this topicMeningococcal VaccineAged OutNo longer eligible based on patient's age to complete this topicRotavirus VaccinesAged Out No longer eligible based on patient's age to complete this topic Procedures Procedure NamePriorityDate/TimeAssociated DiagnosisCommentsMR TRANSFER OF OUTSIDE RKTONOqxumtd08/08/2025 12:00 AM EDT from Last 3 Months Results * MR transfer of outside films (01/05/2025 12:00 AM EDT)Specimen (Source) Anatomical Location / LateralityCollection Method / VolumeCollection Time Received Time Narrative IMAGING - 01/05/2025 9:10 AM EDT This order has been auto-finalized and does not contain a result. Authorizing ProviderResult TypeResult StatusAllison Ovitt CNPIMG MRI PROCEDURES Final ResultPerforming OrganizationAddressCity/State/ZIP CodePhone Number IMAGING from Last 3 Months Insurance Care Teams Team MemberRelationshipSpecialtyStart DateEnd Paolo Rai MD [address] [facility] [address] [address] PCP - General05/07/24
--- OUTSIDE RECORDS SUMMARY | 2025-02-10 07:22 | XMS_ITS | Patient Health Record ---
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 Name Role Phone Fredi Chino Primary Care Provider Allergies Allergen (clinical drug ingredient) Drug/Non Drug Allergy documented on EMR Reaction Allergy Type Onset Date Status fluticasone / vilanterol Breo Ellipta mouth ulcers Drug Al lergy Active Results Component Value Reference Range Notes COVID-19, Flu A+B IH Reviewed date:10/14/2024 03:08:09 PM Interpretation: Performing Lab: Notes/Report: COVID - FLU A-FLU B-Control+CBC AUTO DIFF Reviewed date:03/18/2024 02:50:12 PM Interpretation: Performing Lab: Notes/Report: [facility] ,White Blood Count8.64.0-11.0 10 3/uLRed Blood Count4.104.20-5.40 10 6/uL Evedjfgqqd25.312.0-16.0 g/wDMjmnhtlylj95.136.0-48.0 %Mean Corpuscular Pultxp84.4 81.0-99.0 fLMean Corpuscular Rfpdywambs53.026.7-34.0 pgMean Corpuscular HGB Conc 31.529.9-35.2 g/dLRed Cell Distribution Width14.311.0-15.0 %Platelet Tqfxh566 150-450 10 3/uLMean Platelet Volume9.29.5-13.5 fLNeutrophils Percent Auto64.4 43.0-75.0 %Lymphocytes Percent Auto22.420.5-60.0 %Monocytes Percent Auto8.51.7- 12.0 %Eosinophils Percent Auto3.30.9-7.0 %Basophils Percent Auto0.60.2-2.0 % Immature Granulocytes Pct Auto0.80.0-0.5 %Neutrophils Absolute Auto5.61.4-6.5 10 3/uLLymphocytes Absolute Auto1.91.2-3.8 10 3/uLMonocytes Absolute Auto0.70.3-0.8 10 3/uLEosinophils Absolute Auto0.30.0-0.7 10 3/uLBasophils Absolute Auto0.10.0- 0.1 10 3/uLImmature Granulocytes Abs Auto0.070.00-0.03 10 3/uLPerforming Lab:see noteML - [facility] LBPROF 14(COMP METB) Reviewed date:03/18/2024 02:50:12 PM Interpretation: Performing Lab: Notes/Report: [facility] ,Offyao436563-072 mmol/LPotassium3.83.5-5.1 mmol/FDwcuomxq80898-865 mmol/LCarbon Nbpjvlm62.521.0-32.0 mmol/LAnion Gap11.1Wuhsdlj8758-810 mg/dLBlood Urea Nitrogen 16.07.0-18.0 mg/dLCreatinine0.970.55-1.02 mg/dLEstimated GFR ( Pamela>60 >=60 mL/min/1.73m 2Estimated GFR (Non- Ame56>=60 mL/min/1.73m 2BUN Creatinine Ratio16.8Gfqmekz7.18.5-10.1 mg/dLBilirubin Total0.30.2-1.0 mg/dL Aspartate Amino Ejanltqnank7154-86 U/LAlanine Cwvmvplzrmhfjmqs7894-64 U/L Alkaline Oodiypkitoa93815-092 U/LTotal Protein7.36.4-8.2 g/dLAlbumin Level3.1 3.4-5.0 g/dLGlobulin4.2Albumin Globulin Ratio0.7Performing Lab:see noteML - [facility] LBProthrombin Time INR Reviewed date:03/18/2024 02:50:12 PM Interpretation: Performing Lab: Notes/Report: [facility] ,Prothrombin Time10.29.0-11.6 secINR0.96 DESIRED INR: 2.0-3.0 CONDITIONS NOT LISTED BELOW 2.5-3.5 FOR PROSTHETIC HEART VALVE REPLACEMENT 2.5-3.5 RECURRENT THROMBOSIS Performing Lab:see noteML - [facility] LBECG 12 lead Reviewed date:03/21/2024 02:14:38 PM Interpretation: Performing Lab: Notes/Report: Source Facility: [place] [address] Electrocardiograph Report Signed Patient: JOSS WASHINGTON MR#: [id number] : 1950 Acct:[id number] Age/Sex: 73 / F ADM Date: 03/18/24 Loc: MS 215-[address]: Lawrence Rai M.D. 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 Signed By: 03/20/24 0753 DD/ 1153 TD/TT: Jig Worker:CT stroke head/brain wo con Reviewed date:03/18/2024 02:50:12 PM Interpretation: Performing Lab: Notes/Report: Source Facility: [place] [address] CT Scan Report Signed Patient: JOSS WASHINGTON MR#: [id number] : 1950 Acct:[id number] Age/Sex: 73 / F ADM Date: 03/18/24 Loc: ER Attending Dr: Ordering Physician: Janet Lopes Date of Service: 03/18/24 Procedure(s): CT stroke head/brain wo con Accession Number(s): [id number] cc: Lawrence Rai M.D. [place] [address] Patient Name: JOSS WASHINGTON MRN: [id number] date: 1950 Sex: F Assigned Patient Location: ER Current Patient Location: ER Accession/Order Number: [id number] Exam Date: 03/18/2024 11:25 Report Date: 03/18/2024 [...] Signed By: 03/18/24 1144 DD/ 1141 TD/TT: Jig Worker:CA holter monitor 7-15 days Reviewed date:04/08/2024 09:56:20 PM Interpretation: Performing Lab: Notes/Report: Source Facility: [facility] [place] [address] [place] [address] Cardiology Report Signed Patient: JOSS WASHINGTON MR#: [id number] : 1950 Acct:[id number] Age/Sex: 73 / F ADM Date: 03/18/24 Loc: MS 215-[address]: Lawrence Rai M.D. Ordering Physician: Lawrence Rai M.D. Date of Service: 03/19/24 Procedure(s): CA holter monitor 7-15 days Accession Number(s): [id number] cc: Lawrence Rai M.D. [facility] Test Date: 2024-04-08 Pat Name: JOSS WASHINGTON Department: Room: 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 Signed By: 04/08/24211004/08/242110 DD/ TD/TT: Jig Worker:JM Reviewed date:05/15/2024 02:01:07 PM Interpretation: Performing Lab: Notes/Report: [facility] ,Aspartate Amino Ngvfdkxkkym5838-85 U/LPerforming Lab:see note - [facility] LBSGPT Reviewed date:05/15/2024 02:01:07 PM Interpretation: Performing Lab: Notes/Report: [facility] ,Alanine Bxwgmorltnawxcvb8003-27 U/LPerforming Lab:see [facility] LBCREATININE Reviewed date:05/31/2024 09:17:54 PM Interpretation: Performing Lab: Notes/Report: [facility] ,Creatinine1.130.55-1.02 mg/dLEstimated GFR ( Jnfintt57>=60 mL/min/1.73m 2Estimated GFR (Non- Ame47>=60 mL/min/1.73m 2Performing Lab:see note - [facility] LBMR head/brain wo/w con Reviewed date:06/15/2024 08:28:39 PM Interpretation: Performing Lab: Notes/Report: Source Facility: [place] [address] Magnetic Resonance Report Signed Patient: JOSS WASHINGTON MR#: [id number] : 1950 Acct:[id number] Age/Sex: 74 / F ADM Date: 06/15/24 Loc: MRI Attending Dr: Lawrence Rai M.D. Ordering Physician: Lawrence Rai M.D. Date of Service: 06/15/24 Procedure(s): MR head/brain wo/w con Accession Number(s): [id number] cc: Lawrence Rai M.D. [place] [address] Patient Name: JOSS WASHINGTON MRN: [id number] date: 1950 Sex: F Assigned Patient Location: MRI Current Patient Location: MRI Accession/Order Number: [id number] Exam Date: 06/15/2024 19:40 Report Date: 06/15/2024 [...] Finesse Horton M.D.06/15/2024 7:50 PM Dictation Location: [place] [address] Electronically authenticated by: [id number] Y Date: 06/15/2024 19:50 Dictated By: Finesse Horton M.D. Signed By: 06/15/241952 DD/ 49 TD/TT: Jig Worker:MR head/brain wo con Reviewed date:12/29/2024 05:52:14 PM Interpretation: Performing Lab: Notes/Report: Source Facility: [place] [address] [place] [address] Magnetic Resonance Report Signed Patient: JOSS WASHINGTON MR#: [id number] : 1950 Acct:[id number] Age/Sex: 74 / F ADM Date: 12/29/24 Loc: MRI Attending Dr: Lawrence Rai M.D. Ordering Physician: Lawrence Rai M.D. Date of Service: 12/29/24 Procedure(s): MR head/brain wo con Accession Number(s): [id number] cc: Lawrence Rai M.D. The [address] [place] [address] Patient Name: JOSS WASHINGTON MRN: [id number] date: 1950 Sex: F Assigned Patient Location: [place] [facility] [place]/Order Number: [id number] Exam Date: 12/29/2024 09:40 Report Date: 12/29/2024 13:05 At the request of: LAWRENCE RAI MD Procedure: MR head/brain wo con MR head/brain wo con 12/29/2024 11:40 AM SIGN AND SYMPTOMS: Meningioma, follow-up PROTOCOL: Multiplanar multisequence MR images of the brain without IV contrast COMPARISON: 06/15/2024 FINDINGS: Extra axial spaces: There is an extra-axial soft tissue attenuating structure along the tuberculum sellae measuring 11 mm in greatest dimension which is less well-defined due to the lack of intravenous contrast. This appears to be slightly larger when compared to the prior exam. Hemorrhage: None. Ventricular system: Within normal limits. Basal cisterns: Within normal limits and not effaced. Cerebral parenchyma: Periventricular and subcortical white matter T2 and T2 FLAIR hyperintense signal is noted similar to the prior exam suggesting chronic microvascular ischemic change. Midline shift: None.. Cerebellum: Within normal limits. Brainstem: Within normal limits. OTHER: Calvarium: Normal marrow signal. Vascular system: Satisfactory flow voids within the anterior and posterior circulation. Visualized Paranasal sinuses: Thickening is noted in the maxillary sinuses. There is a left mastoid and middle ear effusion. A small right mastoid effusion is noted. Visualized Orbits: Within normal limits. Visualized upper cervical spine: Within normal limits. Sella and skull base: Within normal limits. MR/MR head/brain wo con IMPRESSION: There is an extra-axial soft tissue attenuating structure along the tuberculum sellae measuring 11 mm in greatest dimension which is less well-defined due to the lack of intravenous contrast. This appears to be slightly larger when compared to the prior exam. This is consistent with the history of meningioma. Similar chronic age-related neurodegenerative changes are noted as above. Impression dictated by: Levi Reilly M.D. 12/29/2024 1:05 PM Dictation Location: [place] [address] Electronically authenticated by: [id number] Y Date: 12/29/2024 13:05 Dictated By: Levi Reilly M.D. Signed By: 12/29/24 1308 DD/ 1305 TD/TT: Jig Worker:TSH Reviewed date:08/31/2024 04:15:45 PM Interpretation: Performing Lab: Notes/Report: [facility] ,Thyroid Stimulating Hormone3.5490.358-3.740 uIU/mLPerforming Lab:see noteML - [facility] LBT4 Reviewed date:08/31/2024 04:15:45 PM Interpretation: Performing Lab: Notes/Report: [facility] ,T4 Thyroxine4.904.80-13.90 ug/dLPerforming Lab:see note - [facility] LBPROF CHEM 8 (BAS METB) Reviewed date:08/31/2024 04:15:45 PM Interpretation: Performing Lab: Notes/Report: [facility] ,Zrnjqm265978-904 mmol/LPotassium5.43.5-5.1 mmol/GUeuopzvl23612-472 mmol/LCarbon Ppuvbvs19.921.0-32.0 mmol/LAnion Gap11.5Nkmxmlg73974-595 mg/dLBlood Urea Ffrkutoe56.07.0-18.0 mg/dLCreatinine1.090.55-1.02 mg/dLEstimated GFR ( Kvybsoo93>=60 mL/min/1.73m 2Estimated GFR (Non- Ame49>=60 mL/min/1.73m 2 BUN Creatinine Ratio28.9Xskatva8.48.5-10.1 mg/dLPerforming Lab:see noteML - [facility] LBFREE T3 Reviewed date:08/31/2024 04:15:45 PM Interpretation: Performing Lab: Notes/Report: [facility] ,Free T31.502.18-3.98 pg/mLPerforming Lab:see note - [facility] LB TSH Reviewed date:08/19/2024 08:01:15 PM Interpretation: Performing Lab: Notes/Report: [facility] ,Thyroid Stimulating Hormone4.1430.358-3.740 uIU/mLPerforming Lab:see noteML - [facility] LBT4 Reviewed date:08/19/2024 08:01:15 PM Interpretation: Performing Lab: Notes/Report: [facility] ,T4 Thyroxine6.604.80-13.90 ug/dLPerforming Lab:see note - [facility] LBPROF 14(COMP METB) Reviewed date:08/19/2024 08:01:15 PM Interpretation: Performing Lab: Notes/Report: [facility] ,Lelvcn636497-182 mmol/LPotassium4.93.5-5.1 mmol/VYvcwwwib16454-193 mmol/LCarbon Buictoo73.321.0-32.0 mmol/LAnion Gap12.1Gdxlmvf55662-784 mg/dLBlood Urea Oflozplg55.07.0-18.0 mg/dLCreatinine1.280.55-1.02 mg/dLEstimated GFR ( Xequwdt97>=60 mL/min/1.73m 2Estimated GFR (Non- Ame41>=60 mL/min/1.73m 2 BUN Creatinine Ratio28.8Vbtiyxv1.68.5-10.1 mg/dLBilirubin Total0.40.2-1.0 mg/dL Aspartate Amino Yvjgpzufgwg5174-06 U/LAlanine Qczyhugtzopajwmf3892-99 U/L Alkaline Cvdxgjxyllm21784-137 U/LTotal Protein7.46.4-8.2 g/dLAlbumin Level3.0 3.4-5.0 g/dLGlobulin4.4Albumin Globulin Ratio0.7Performing Lab:see noteML - [facility] LBINSULIN Reviewed date:08/21/2024 11:50:54 AM Interpretation: Performing Lab: Notes/Report: [facility] ,Lsqmyxx54.82.6-24.9 uIU/mL Performed at: - [address] [id number] Manager Testing: Dimitris Morales PhD, Phone: [phone] Performing Lab:see note - [facility] LBGLYCOHEMOGLOBIN A1C Reviewed date:08/19/2024 08:01:15 PM Interpretation: Performing Lab: Notes/Report: [facility] ,Glycohemoglobin A1C6.44.5-6.2 % ADA RECOMMENDED LIMIT 4.0 - 6.0 ADA THERAPEUTIC TARGET < 7.0 ACTION SUGGESTED > 7.0 Estimated Average Jqpmrfs449Qmuwnzaskd Lab:see noteML - [facility] FREE T3 Reviewed date:08/19/2024 08:01:15 PM Interpretation: Performing Lab: Notes/Report: [facility] T32.442.18-3.98 pg/mLPerforming Lab:see noteML - [facility] LB CA 30 day event monitor Reviewed date:05/23/2024 09:10:54 AM Interpretation: Performing Lab: Notes/Report: Source Facility: [place] [address] Cardiology Report Signed Patient: JOSS WASHINGTON MR#: [id number] : 1950 Acct:[id number] Age/Sex: 73 / F ADM Date: 04/13/24 Loc: CARD Attending Dr: Lawrence Rai M.D. Ordering Physician: Lawrence Rai M.D. Date of Service: 04/13/24 Procedure(s): CA 30 day event monitor Accession Number(s): [id number] cc: Lawrence Rai M.D. 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 Signed By: 05/21/24 1756 05/21/24 1756 DD/ 0821 TD/TT: Jig Worker:ROSANNA [employer] Reviewed date:05/15/2024 02:01:07 PM Interpretation: Performing Lab: Notes/Report: Source Facility: [place] [address] Cardiology Report Signed Patient: JOSS WASHINGTON MR#: [id number] : 1950 Acct:[id number] Age/Sex: 73 / F ADM Date: 05/14/24 Loc: CARD Attending Dr: John Yin M.D. Ordering Physician: John Yin M.D. Date of Service: 05/14/24 Procedure(s): CA echo limited Accession Number(s): [id number] cc: Lawrence Rai M.D.; John Yin M.D. Patient Name: JOSS WASHINGTON MR#: [id number] : 1950 Exam Date: 05/14/2024 Ordering Doctor: [...] COLBERT Signed By: 05/14/241837 DD/ 36 TD/TT: Jig Worker:LIPID PROFILE Reviewed date:05/15/2024 02:01:07 PM Interpretation: Performing Lab: Notes/Report: [facility] ,Jkjefrzscrtrj792<=150 mg/gWBlyorgrehji725<=200 mg/dLHDL Mcfvprrhety7957-24 mg/dL > or =60 mg/dl - LOW CARDIOVASCULAR RISK <40 mg/dl - HIGH CARDIOVASCULAR RISK LDL Cholesterol Fxtzprzgfx23.0 <100 mg/dl OPTIMAL 100-129 mg/dl NEAR OR ABOVE OPTIMAL 130-159 mg/dl BORDERLINE HIGH 160-189 mg/dl HIGH >190 mg/dl VERY HIGH VLDL UJHQHUZIZGM86.0Chol HDL Ratio2.5 3.3 - 4.4 LOW RISK 4.4 - 7.1 AVERAGE RISK 7.1 - 11.0 MODERATE RISK >11.0 HIGH RISK Performing Lab:see noteML - [facility] LBCA echo doppler complete Reviewed date:03/19/2024 04:29:46 PM Interpretation: Performing Lab: Notes/Report: Source Facility: [facility] [place] [address] [address] Cardiology Report Signed Patient: JOSS WASHINGTON MR#: [id number] : 1950 Acct:[id number] Age/Sex: 73 / F ADM Date: 03/18/24 Loc: MS 215-[address]: Lawrence Rai M.D. Ordering Physician: Lawrence Rai M.D. Date of Service: 03/19/24 Procedure(s): CA echo doppler complete Accession Number(s): [id number] cc: Lawrence Rai M.D. Patient Name: JOSS WASHINGTON MR#: [id number] : 1950 Exam Date: 03/19/2024 Ordering Doctor: [...] on 03/19/2024 at 14:17 Approved by: Chad Treadewll M.D. on 03/19/2024 at 14:19 Dictated By: Chda Treadwell M.D. Signed By: 03/19/24 1421 DD/ 1419 TD/TT: Jig Worker:CT angio head Reviewed date:03/18/2024 02:50:12 PM Interpretation: Performing Lab: Notes/Report: Source Facility: [facility] [place] [address] [address] [address] Scan Report Signed Patient: JOSS WASHINGTON MR#: [id number] : 1950 Acct:[id number] Age/Sex: 73 / F ADM Date: 03/18/24 Loc: ER Attending Dr: Ordering Physician: Janet Lopes Date of Service: 03/18/24 Procedure(s): CT angio head Accession Number(s): [id number] cc: Lawrence Rai M.D. [place] [id number] Patient Name: JOSS WASHINGTON MRN: [id number] date: 1950 Sex: F Assigned Patient Location: ER Current Patient Location: ER Accession/Order Number: [id number] Exam Date: 03/18/2024 12:50 Report Date: 03/18/2024 [...] Signed By: 03/18/24 1326 DD/ 1323 TD/TT: Jig Worker:CT angio neck Reviewed date:03/18/2024 02:50:12 PM Interpretation: Performing Lab: Notes/Report: Source Facility: [place] [address] CT Scan Report Signed Patient: JOSS WASHINGTON MR#: [id number] : 1950 Acct:[id number] Age/Sex: 73 / F ADM Date: 03/18/24 Loc: ER Attending Dr: Ordering Physician: Janet Lopes Date of Service: 03/18/24 Procedure(s): CT angio neck Accession Number(s): [id number] cc: Lawrence Rai M.D. [place] [address] Patient Name: JOSS WASHINGTON MRN: [id number] date: 1950 Sex: F Assigned Patient Location: ER Current Patient Location: ER Accession/Order Number: [id number] Exam Date: 03/18/2024 12:50 Report Date: 03/18/2024 [...] Signed By: 03/18/24 1326 DD/ 1323 TD/TT: Jig Worker: Reason For Referral Diagnosis 1 Chest pain (R07.9) Referral Organization [facility] Referring Provider First Name Chino Referring Provider Last Name Fredi Referring Provider [facility] tuyet Referred Provider [facility] Cardiology [facility] Referred Provider Specialty Cardiology Referral Priority Routine Diagnosis 1 Otitis media, left ( H66.92) Referral Organization [facility] Referring Provider First Name Chino Referring Provider Last Name Fredi Referring Provider [facility] Referred Provider Maddi Simon Referred Provider Specialty Otolaryngolo gy Referral Priority Routine Diagnosis 1 Benign meningioma (D 32.0) Referral Organization [facility] Referring Provider First Name [place]ino Referring Provider Last Name Fredi [facility] Referred Provider Valentin Cohen Referred Provider Specialty Neurosurgery Referral Priority Routine Medications Medication SIG (Take, Route, Frequency, Duration) Notes Start Date End Date Status Simvastatin 20 MG 1 tablet Orally every evening; Duration: 90 days 01/06/2024ctiveCholecalciferol 50 MCG (2000 UT)1 capsule Orally Once a dayOTC 01/06/2024ctiveSpironolactone 50 MGTAKE 1 TABLET BY MOUTH IN THE MORNING Oral; Duration: 90 DaysActiveSpiriva Respimat 1.25 MCG/ACT2 puffs Inhalation Once a day01/06/2024ctiveDaypro 600 MG2 tablets Orally daily; Duration: 20 days 5ActiveClopidogrel Bisulfate 75 MG1 tablet Orally Once a day; Duration: 90 daysActivetiZANidine HCl 4 MG2 tabs Orally qhs; Duration: 30 days06/21/2024 ActivehydrOXYzine HCl 25 MG1 tablet at bedtime as needed Orally Once a dayActive dilTIAZem HCl 120 MG1 capsule Orally bid; Duration: 90 daysActiveVentolin HFA 108 (90 Base) MCG/ACT2 puff as needed Inhalation every 4 hrs5ActiveLac- Hydrin Five 5 %1 application Externally Twice a day5ActiveLisinopril 40 MG1 tablet Orally Once a day; Duration: 90 daysActiveAzelastine HCl 0.05 %1 drop into affected eye Ophthalmic Twice a dayActive Immunizations Vaccine Route Administration Date Status Comme nts Arexvy Unknown 03/07/2023 Administered Flu, (12565) -historic- WxxiaHvclgzm68/16/2016AdministeredFlu, Fluad (72190) 65 yrs and older, single-dose syringe (0861-9212)Cxxrpns67/06/2021AdministeredFlu, Fluad (53790) 65 yrs and older, single-dose syringe (2258-4725)IM Intramuscular 4AdministeredFlu, Fluad (85708) 65 yrs and older, single-dose syringe (3605-9902)IM Yjqvpzlozblco16/10/2025dministeredFlu, Fluad (31825) 65 yrs+, single-dose syringe (8263-3427)Eqwyyxt45/21/2022AdministeredFlu, Fluad (83266) 65 yrs+, single-dose syringe (7459-5089)IM Ttnplooqnfzbr21/06/2023dministered Pneumococcal (Pneumovax 23)Iipadly4509/06/2016AdministeredPneumococcal (Pneumovax 23)Ngwncdz8006/26/2017Administered Social History Tobacco Use: Social History Observation Description Date Details (start date - stop date) Never Smoker NA - NA Tobacco Use/Smoking Question Answer Notes Patient is a nonsmoker AUDIT-C (Standard) Question Answer Notes Did you have a drink containing alcohol in the p ast year? No Etlrya2OhfpbshrmhqqtvMpnucqdm Problems Problem Type SNOMED Code ICD Code Onset Dates Problem Status W/U Status Risk Notes Problem Morbid obesity (disorder) (36852 6002) Morbid (severe) obesity due to excess calories (E66.01) ActiveconfirmedProblemOverweight (374202930)Overweight (E66.3)Activeconfirmed ProblemPhlebitis and thrombophlebitis of unspecified deep vessels of unspecified lower extremity (I80.209)ActiveconfirmedProblemSpasm of back muscles (850801882)Muscle spasm of back (M62.830)ActiveconfirmedProblemChest pain (82902278)Chest pain (R07.9)ActiveconfirmedProblemHyperlipidaemia (89269021) Hyperlipemia (E78.5)ActiveconfirmedProblemHypertension (46056888)Hypertension (I10)ActiveconfirmedProblemAsthma (473760134)Asthma (J45.909)Activeconfirmed ProblemHypothyroidism (91559062)Hypothyroidism (E03.9)ActiveconfirmedProblem Carpal tunnel syndrome (39837313)Carpal tunnel syndrome (G56.00)Activeconfirmed ProblemNeck pain (24462873)Neck pain (M54.2)ActiveconfirmedProblemEczema (20842183)Eczema (L30.9)ActiveconfirmedProblemAnkle pain (994967809)Ankle pain (M25.579)ActiveconfirmedProblemTransient ischemic attack (934997958)TIA (transient ischemic attack) (G45.9)ActiveconfirmedProblemAcute bronchitis (07324665)Acute bronchitis (J20.9)ActiveconfirmedProblemWell adult (442367362) Well adult (Z00.00)ActiveconfirmedProblemSeasonal allergic rhinitis (012719915) Seasonal allergic rhinitis (J30.2)ActiveconfirmedProblemDiverticulitis (34850976)Diverticulitis (K57.92)ActiveconfirmedProblemChronic fatigue syndrome (51743102)Chronic fatigue syndrome (R53.82)ActiveconfirmedProblemCarcinoma in situ of breast (939574782)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)ActiveconfirmedProblemLesion of ulnar nerve (438685206)Ulnar nerve entrapment, 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)ActiveconfirmedProblemBody mass index 40+ - severely obese (528648107)BMI 50.0-59.9, adult (Z68.43)ActiveconfirmedProblemOtitis media (81374162)Otitis media, left (H66.92)ActiveconfirmedProblemBenign meningioma (460762820)Benign meningioma (D32.0)ActiveconfirmedProblemBenign neoplasm of meninges (465806994)Benign neoplasm of meninges (D32.9)ActiveconfirmedProblem Shoulder impingement syndrome (467570630)Shoulder impingement syndrome (M75.40) ActiveconfirmedProblemTransient ischemic attack (disorder) (142644089)Brain TIA (G45.9)ActiveconfirmedProblemFibromyositis (24215213)Fibromyositis (M79.7)Active confirmedProblemType II diabetes mellitus without complication (882040489) Diabetes mellitus type 2, diet-controlled (E11.9)ActiveconfirmedProblemEssential hypertension (44715664)BP (high blood pressure) (I10)ActiveconfirmedProblem Hypercholesterolemia (44578159)Hypercholesterolemia (E78.00)Activeconfirmed ProblemMixed anxiety and depressive disorder (650549490)Anxiety and depression (F41.8)ActiveconfirmedProblemEdema of left lower leg (121785979)Edema of left lower leg (R60.0)ActiveconfirmedProblemLow back pain (402633381)Low back pain, unspecified (M54.50)Activeconfirmed Vital Signs Heart Rate 128 /min 10/18/2024 Pnlzvrcsxsx92.2 degrees Gguxeauuhi21/21/5381Sschijsq16 %10/18/2024lood pressure mm Hg02/07/20252513Ewnnoy86 in02/07/2025lood pressure mm Hg02/07/20259318Adckxx537.4 lbs104/09/2024BMI54.27 kg/m202/07/2025 Procedures Procedure Date Ordered Date Performed Result Body Sit e Holter Monitor - 24 hrs 04/08/2024 N/A Encounters Encounter Location Date Provider Diagnosis [address] [place] [address] 06/21/2024 [place] Hoy Neck pain M54.[address] [address] 03/26/2024 [place] Hoy TIA (transient ische pablo attack) G45.9 ; Diabetes mellitus type 2, diet-controlled E11.9 ; Anxiety and depression F41.8 and Hypertension I10 [address] [place] [address] 08/11/2024 [place] H[place] Morbid (severe) obes ity due to excess calories E66.01 ; Hypertension I10 and Chronic fatigue syndrome R53.82 [facility] [address] [facility] [place] [address] 08/20/2024 [place] H[place] Acute bronchitis, unspecified organism J20.9 [facility] [address] [facility] [place] [address] 09/28/2024 [place] Hoy Otitis media, left H66.92 [facility] [address] [facility] [place] [address] 10/12/2024 [place] Hoy Acute bronchitis, unspecified organism J20.9 [facility] [address] [facility] [place] [address] 10/14/2024 [place] Hoy Acute bronchitis, unspecified organism J20.9 [facility] [address] [facility] [place] [address] 10/18/2024 [place] Hoy Acute bronchitis J20 .9 [facility] [address] [facility] [place] [address] 02/07/2025 [place] Hoy Encounter for immunization Z23 ; Hypertension I10 ; Chronic fatigue syndrome R53.82 and Diabetes mellitus type 2, diet-controlled E11.9 [facility] [address] [facility] [place] [address] 12/22/2024 [place] H[place] Acute bronchitis, unspecified organism J20.9 [facility] [address] [facility] [place] [address] 03/19/2024 [place] Hoy [facility] [facility] [place] [address] 04/01/2024[facility] [facility] [place] [address]/11/2024Doug HoyChest pain R07.9[facility] [address] [facility] [place] [address]/Doug HoyBVH [facility] [facility] [place] [address]/Doug Hoy [facility] [facility] [place] [address] 05/19/2024Doug HoyAngioma D18.00[facility] [facility] [address] [place] [address]/Doug [facility] [facility] [place] [address]/Doug [facility] [facility] [place] [address]/Doug HoyEncounter for other preprocedural examination Z01.818[facility] [facility] [place] [address]/05/2024Doug [facility] [facility] [place] [address]/Doug HoyBenign neoplasm of meninges D32.9[facility] [facility] [place] [address]/05/2024Doug [facility] [facility] [place] [address]/Doug [facility] [facility] [place] [address]/Doug HoyAcute kidney injury N17.9 and Hypothyroid E03.9[facility] [facility] [place] [address]/Doug [facility] [facility] [place] [address]/05/2024Doug [facility] [facility] [place] [address]/05/2024 [place] [facility] [facility] [place] [address]/Doug [facility] [facility] [place] [address]/Doug HoyBenign neoplasm of meninges D32.9[facility] [facility] [place] [address]/ Chino HoyOtitis media, left H66.92[facility] [place] [place] [address]Doug HoyBenign meningioma D32.0 Assessments Encounter Date Diagnosis (ICD Code) Assessment Notes Treatment Notes Treatment Clinical Notes Section Notes 03/26/2024 TIA (transient ischemic attack) (ICD-10 - G45.9) now on plavvix and asa - holter yexacjk8803/26/2024iabetes mellitus type 2, diet- controlled (ICD-10 - E11.9)5Acute bronchitis, unspecified organism (ICD-10 - J20.9)Rest and drink more liquids, especially water. You may use a humidifier or vaporizer to help keep the drainage moist. Dqrv-ufe-gthoofs Nasal Saline may help the stuffy and runny nose. Use Ibuprofen and or Tylenol as needed for fever, chills, body aches or pain. Children 5 years old should not be given muge-gni-achttve cough and cold medications such as guaifenesin and dextromethorphan. If you're over age 5, you may try mmdg-zgt-izkhnqa cold medications such as guaifenesin and dextromethorphan, or multi-symptom cold reliever such as Dayquil to help reduce the symptoms. Antibiotics have been pre scribed. You should take these until completed and follow the directions. Antibiotics can sometimescause upset stomach, and in rare cases, serious allergic reactions or serious gastrointestinal problems. If you start having severe abdominal pain, severe vomiting, or bloody diarrhea, you should be r eevaluated by your physician or urgent care immediately. Follow up with your Primary Care Provider or return to clinic if symptoms do not improve within 3-5 days. If you develop severe symptoms such as shortness of breath, repeated vomiting, coughing up blood, or chest pain you should go to the emergency room or call [phone] media, left (ICD-10 - H66.92)5Acute bronchitis, unspecified organism (ICD-10 - J20.9)Rest and drink more liquids, especially water. You may use a humidifier or vaporizer to help keep the drainage moist. Wwyq-oln-czxorrt Nasal Saline may help the stuffy and runny nose. Use Ibuprofen and or Tylenol as needed for fever, chills, body aches or pain. Children 5 years old should not be given mvix-skb-ijskrlt cough and cold medications such as guaifenesin and dextromethorphan. If you're over age 5, you may try bemy-jph-vdlzhmu cold medications such as guaifenesin and dextromethorphan, or multi-symptom cold reliever such as Dayquil to help reduce the symptoms. Antibiotics have been prescribed. You should take these until completed and follow the directions. Antibiotics can sometimescause upset stomach, and in rare cases, serious [...] go to the emergency room or call [phone] bronchitis, unspecified organism (ICD-10 - J20.9)Rest and drink more liquids, especially water. You may use a humidifier or vaporizer to help keep the drainage moist. Tyvl-jgz-yhuqzvr Nasal Saline may help the stuffy and runny nose. Use Ibuprofen and or Tylenol as needed for fever, chills, body aches or pain. Children 5 years old should not be given qspc-ezf-uqdaxrl cough and cold medications such as guaifenesin and dextromethorphan. If you're over age 5, you may try ifxe-syr-atwmnrj cold medications such as guaifenesin and dextromethorphan, or multi-symptom cold reliever such as Dayquil to help reduce the symptoms. Antibiotics have been prescribed. You should take these until completed and follow the directions. Antibiotics can sometimescause upset stomach, and in rare cases, serious [...] go to the emergency room or call [phone] bronchitis (ICD-10 - J20.9)5Acute bronchitis, unspecified organism (ICD-10 - J20.9)Rest and drink more liquids, especially water. You may use a humidifier or vaporizer to help keep the drainage moist. Iyze-xuj-jarnzxl Nasal Saline may help the stuffy and runny nose. Use Ibuprofen and or Tylenol as needed for fever, chills, body aches or pain. Children 5 years old should not be given nbgw-cjg-rwqtcng cough and cold medications such as guaifenesin and dextromethorphan. If you're over age 5, you may try rsid-grq-nnmrjfs cold medications such as guaifenesin and dextromethorphan, or multi-symptom cold reliever such as Dayquil to help reduce the symptoms. Antibiotics have been pre scribed. You should take these until completed and follow the directions. Antibiotics can sometimescause upset stomach, and in rare cases, serious allergic reactions or serious gastrointestinal problems. If you start having severe abdominal pain, severe vomiting, or bloody diarrhea, you should be r eevaluated by your physician or urgent care immediately. Follow up with your Primary Care Provider or return to clinic if symptoms do not improve within 3-5 days. If you develop severe symptoms such as shortness of breath, repeated vomiting, coughing up blood, or chest pain you should go to the emergency room or call [phone] for immunization (ICD-10 - Z23)02/07/2025 Hypertension (ICD-10 - I10)vhzwia45/5Chest pain (ICD-10 - R07.9)05/19/2024 Angioma (ICD-10 - D18.00)05/24/2024Encounter for other preprocedural examination (ICD-10 - Z01.818)5Benign neoplasm of meninges (ICD-10 - D32.9) 5Acute kidney injury (ICD-10 - N17.9)08/19/2024Hypothyroid (ICD-10 - E03.9)12/22/2024enign neoplasm of meninges (ICD-10 - D32.9)12/24/2024Otitis media, left (ICD-10 - H66.92)12/29/2024enign meningioma (ICD-10 - D32.0) 06/21/2024Neck pain (ICD-10 - M54.2)08/11/2024Morbid (severe) obesity due to excess calories (ICD-10 - E66.01)08/11/2024Hypertension (ICD-10 - I10)08/11/2024 Chronic fatigue syndrome (ICD-10 - R53.82)02/07/2025hronic fatigue syndrome (ICD-10 - R53.82)checin labs03/26/2024nxiety and depression (ICD-10 - F41.8) 03/26/2024Hypertension (ICD-10 - I10)02/07/2025Diabetes mellitus type 2, diet- controlled (ICD-10 - E11.9)runing 120's Plan Of Treatment Pending Test Test Name Order Date Exercise Stress Nuclear Test 09/20/2022 CMP (COMPLETE METABOLIC PANEL) HEMOGLOBIN A1C (GLYCO) 02/07/2025 IRON, TOTAL 02/07/2025 LIPID PANEL (CHOL/TRIG/HDL/LDL) 02/08/20 25 VITAMIN D, 25 LEVEL (TOTAL) 02/07/2025 US Breast Limited LT 10/07/2022 T3 FREE, T4 FREE and TSH 03/26/2023 T3 FREE, T4 FREE and TSH 01/05/2024 BMP w/GFR 08/19/2024 FECAL OCCULT BLOOD 03/26/2023 Holter Monitor - 24 hrs 04/08/2024 CREATININE 05/24/2024 Insulin Level 02/07/2025 COMPREHENSIVE METABOLIC PROFILE WITH GFR 12/31/2023 OCCULT BLOOD, FECAL, IMMUNOASSAY 024 CBC W/AUTO DIFF 12/31/2023 STOOL OCCULT BLOOD 02/07/2025 BNP 02/07/2025 GLYCOHEMOGLOBIN A1C 08/11/2024 GLYCOHEMOGLOBIN A1C 03/28/2023 INSULIN 08/11/2024 LIPID PROFILE 01/05/2024 LIVER PROFILE 01/05/2024 PROF 14(COMP METB) 08/11/2024 THYROID PROFILE WITH TSH 03/28/2023 MG MAMM DX 3D LT CAD 10/07/2022 XR CHEST 2 V 10/14/2024 XR CHEST 2 V 02/07/2025 THYROID PANEL (T4/TSH/FREE T3) 5 THYROID PANEL (T4/TSH/FREE T3) 5 THYROID PANEL (T4/TSH/FREE T3) 4 THYROID PANEL (T4/TSH/FREE T3) 5 MM screening mammo BI 02/07/2025 Vitamin D 12/31/2023 Vitamin D 03/26/2023 Lipid Panel 12/31/2023 MRI BRAIN W WO CONTRAST 05/19/2024 MRI Brain w/o contrast 12/22/2024 CMP (COMP MET ORTEGA) w/eGFR CKD-EPI 2024 CBC WITH DIFF 02/07/2025 Insurance Providers Payer Name Payer Address Payer Phone Subscriber Number Group Number Insured Name Patient Relationship to Insured Coverage Start Date Coverage End Date MEDICARE RAILROAD [address] [address] [place], [place] [id number] Adi [place] - patient is the [id number]8 MEDICARE SUPP CLAIM DEPT [address] [place], [place] [id number] [place]i [place] - patient is the [id number] 2023 Medications Administered Medication Instructions Date of Administration Dosage Notes Dexamethasone, 4mg/mL mgDexamethasone, 4mg/mL mgKetorolac Tromethamine mgTriamcinolone 40 mg/ml mgTriamcinolone 40 mg/ml mg Medical (General) History Medical History History [...] E11.9 insulin resistance Surgical History Surgery Date(Month/Year) Lumpectomy, rt breast CholecystectomyRotator Cuff RepairTonsillectomyHysterectomyHernia RepairShoulder Decompression, RightHospitalization History Reason Date(Month/Year) Vision changes 03/23
[2025-02-10 07:46] LABS: Hematocrit 36.9 % (36.0-48.0); Hemoglobin 11.5 g/dL (12.0-16.0); Immature Granulocytes Abs Auto 0.11 10^3/uL (0.00-0.03); Immature Granulocytes Pct Auto 1.3 % (0.0-0.5); Lymphocytes Absolute Auto 1.6 10^3/uL (1.2-3.8); Mean Corpuscular HGB Conc 31.2 g/dL (29.9-35.2); Mean Corpuscular Hemoglobin 31.1 pg (26.7-34.0); Mean Corpuscular Volume 99.7 fL (81.0-99.0); Platelet Count 281 10^3/uL (150-450); Red Blood Count 3.70 10^6/uL (4.20-5.40); White Blood Count 8.2 10^3/uL (4.0-11.0)
[2025-02-10 09:47] LABS: Alanine Aminotransferase 18 U/L (14-59); Albumin Globulin Ratio 0.8; Albumin Level 3.1 g/dL (3.4-5.0); Alkaline Phosphatase 114 U/L (46-116); Anion Gap 9.9; Aspartate Amino Transferase 9 U/L (15-37); Blood Urea Nitrogen 23.0 mg/dL (7.0-18.0); Calcium 9.5 mg/dL (8.5-10.1); Carbon Dioxide 30.7 mmol/L (21.0-32.0); Chloride 105 mmol/L (98-107); Cholesterol 177 mg/dL (<=200); Estimated GFR (African America 52 (>=60 mL/min/1.73m^2); Estimated GFR (Non-African Ame 43 (>=60 mL/min/1.73m^2); Free T3 1.65 pg/mL (2.18-3.98); Globulin 4.0 g/dL; Glucose 114 mg/dL (74-106); HDL Cholesterol 62 mg/dL (40-60); NT Pro B Type Natriuretic Pept 80.0 pg/mL (<=900.0); Potassium 4.6 mmol/L (3.5-5.1); Sodium 141 mmol/L (136-145); Thyroid Stimulating Hormone 2.502 uIU/mL (0.358-3.740); Total Protein 7.1 g/dL (6.4-8.2); Triglycerides 100 mg/dL (<=150); VLDL CHOLESTEROL 20.0 mg/dL
[2025-02-10 09:49] LABS: Iron 44.0 ug/dL (50.0-170.0)
== END 2025-02-10 07:17 | disposition home or self-care (01) ==
LOC: LAB 07:19
PROVIDERS: PCP Family Medicine; Visit Provider Family Medicine
DX: D64.9 Anemia, unspecified (principal); R53.82 Chronic fatigue, unspecified; E11.9 Type 2 diabetes mellitus without complications; E78.5 Hyperlipidemia, unspecified; Z12.12 Encounter for screening for malignant neoplasm of rectum; E03.9 Hypothyroidism, unspecified; E55.9 Vitamin D deficiency, unspecified; D50.9 Iron deficiency anemia, unspecified; I50.30 Unspecified diastolic (congestive) heart failure; I11.0 Hypertensive heart disease with heart failure
CPT/HCPCS: 36415; 71046; 80053; 80061; 82306; 83036; 83525; 83540; 83880; 84436; 84443; 84481; 85025

== ENCOUNTER 2025-02-16 06:58 | Outpatient (OUT) | payer MEDICARE, OTHER, SELFPAY ==
--- OUTSIDE RECORDS SUMMARY | 2025-02-07 05:30 | XMS_ITS ---
Author Organization The [facility] in [place] Address [address] [place] [address] Care Team Providers Care Cook Manager Name Role Phone Chino Rai Primary Care Provider [phone] Allergies Allergen (clinical drug ingredient) Drug/Non Drug Allergy documented on EMR Reaction Allergy Type Onset Date Status fluticasone / vilanterol Breo Ellipta mouth ulcers Drug Al lergy Active Results Component Value Reference Range Notes BNP Reviewed date:02/10/2025 12:54:50 PM Interpretation: Performing Lab: Notes/Report: [facility] , NT Pro B Type Natriuretic Pept 80.0 <=900.0 pg /mL Performing Lab:see noteML - [facility] LB REASON FOR VISIT Presents to office alone for yearly check up Medications Medication SIG (Take, Route, Frequency, Duration) Notes Start Date End Date Status Azelastine HCl 0.05 % 1 drop into affected eye O phthalmic Twice a day ActiveCholecalciferol 50 MCG (2000 UT)1 capsule Orally Once a uruOCA32 ActiveVentolin HFA 108 (90 Base) MCG/ACT2 puff as needed Inhalation every 4 hrs 5ActiveSimvastatin 20 MG1 tablet Orally every evening; Duration: 90 days01/06/2024ctiveSpironolactone 50 MGTAKE 1 TABLET BY MOUTH IN [...] Administration Date Status Comme nts Flu, Fluad (04986) 65 yrs and older, single-dose syringe () IM Intramuscular 02/07/2025 Administered Social History Tobacco Use: Social History Observation Description Date Details (start date - stop date) Never Smoker NA - NA Tobacco Use/Smoking Question Answer Notes Patient is a nonsmoker AUDIT-C (Standard) Question Answer Notes Did you have a drink containing alcohol in the p ast year? No Zvorhb2EoczkfcxkzvqzaQfsevsya Vital Signs Weight 306.4 lbs 02/07/2025 Height 63 in 02/07/2025 Blood pressure systolic 146 mm Hg 02/08/20 25 Blood pressure diastolic 84 mm Hg 025 BMI 54.27 kg/m2 02/07/2025 Encounters Encounter Location Date Provider Diagnosis [address] [address] 02/07/2025 Chino Rai Encounter for immunization Z23 ; Hypertension I10 ; Chronic fatigue syndrome R53.82 and Diabetes mellitus type 2, diet-controlled E11.9 Assessments Encounter Date Diagnosis (ICD Code) Assessment Notes Treatment Notes Treatment Clinical Notes Section Notes 02/07/2025 Encounter for immunization (ICD- 10 - Z23) 02/07/2025Hypertension (ICD-10 - I10)yhoutg5402/07/2025hronic fatigue syndrome (ICD-10 - R53.82)checin labs02/07/2025Diabetes mellitus [...] Insulin Level 02/07/2025 STOOL OCCULT BLOOD 02/07/2025 XR CHEST 2 V 02/07/2025 THYROID PANEL (T4/TSH/FREE T3) 5 MM screening mammo BI 02/07/2025 CMP (COMP MET ORTEGA) w/eGFR CKD-EPI 2024 CBC WITH DIFF 02/07/2025 Progress Notes * Charlee NAGY JDOB:1950 (74 yo F)Acc No.[id number]:02/07/2025 Progress Note Patient: Charlee KIM :?Paolo LupilloJodi Rai ([facility]), MDDOB:1950???Age: 74 Y???Sex:FemaleDate:02/07/2025Phone:[phone]:[address] [place], [place]-[address]Check In:10:20 AM ESTCheck Out:11:08 AM EST Subjective: [...] ity due to excess calories Modified On:08/02/2022W/U Status:ddloyzjlbB08.3Overweight Modified On:08/02/2022W/U Status:wpbpsvsnyQ95.209Phlebitis and thrombophlebitis of unspecified deep vessels of unspecified lower extremity Modified On:08/02/2022W/U Status:dkatvbzrzH08.830Muscle spasm of back Modified On:08/02/2022W/U Status:pjjexngvhK77Isiuajdcqfvs Modified On:08/02/2022 Status:mnsdeormmL49.00Carpal tunnel syndrome Modified On:08/02/2022 Status:dlrrutntkU58.00Well adult Modified On:08/02/2022 Status:mxwcuctwzU30.2Seasonal allergic rhinitis Modified On:08/02/2022 Status:lwuppdjkmL01.92Diverticulitis Modified On:08/02/2022 Status:wzfbwieejH23.82Chronic fatigue syndrome Modified On:08/02/2022 Status:pyldkjjsvF27.11Ductal carcinoma in situ (DCIS) of right breast Modified On:08/02/2022 Status:rfrzddeqlH01.21Ulnar nerve entrapment, right Modified On:08/02/2022 Status:mxhblasnsX59.43BMI 50.0-59.9, adult Modified On:08/02/2022 Status:twgwdecvwR32.92Otitis media, left Modified On:08/02/2022 Status:cmyiflhtnH51.9Eczema Modified On:08/02/2022 Status:njmcazuyeX32.579Ankle pain Modified On:08/02/2022 Status:zasndjlioD43.40Shoulder impingement syndrome Modified On:08/02/2022 Status:lvgdxlvjcL53.7Fibromyositis Modified On:08/02/2022 Status:vfyahodvuM31.9Diabetes mellitus type 2, diet-controlled Modified On:04/01/2023 Status:hxyinyjnuZ72.8Anxiety and depression Modified On:08/02/2022 Status:dqmkxursuY55.0Edema of left lower leg Modified On:08/02/2022 Status:movudyqulB51.50Low back pain, unspecified Modified On:08/02/2022 Status:yrpolduqoB01.9Chest pain Modified On:09/20/2022 Status:zgyxfowagD56.909Asthma Modified On:02/03/2023 Status:jijphuszrJ96.9Hypothyroidism Modified On:01/06/2024 Status:hodxrglvtY08.00Hypercholesterolemia Modified On:01/06/2024U Status:masibnwvoU53.9TIA (transient ischemic attack) Modified On:03/26/2024U Status:rxodrsbypE29.9Brain TIA Modified On:04/05/2024 Status:itrejocvbB63.5Hyperlipemia Modified On:05/06/2024U Status:hnutksuiyO17PA (high blood pressure) Modified On:05/06/2024U Status:obokzodhbT20.9Benign neoplasm of meninges Modified On:06/16/2024U Status:chxmzokhjP47.2Neck pain Modified On:06/21/2024U Status:fclkadpceT35.9Acute bronchitis Modified On:10/18/2024 Status:vfoltccgfF38.0Benign meningioma Modified On:12/30/2024 Status:confirmed * Medical History: * Surgical History: [...] 1 tablet Orally every evening Spiriva Respimat(Tiotropium [place]) 1.25 MCG/ACT Aerosol Solution 2 puffs Inhalation [...] tablet Orally every evening Taking Spiriva Respimat(Tiotropium [place]) 1.25 MCG/ACT Aerosol Solution 2 puffs Inhalation [...] Notes: runing 120's?? * Immunizations: Flu, Fluad (34887) 65 yrs and older, single-dose syringe (2763-6815) : 0.5 mL (Route: Intramuscular) given by Tiffanie Edgard , MR on Right Gluteus Medius (Encounter for immunization) * Procedure Codes: 9 0653 FLU VACCINE ADJUVANT [id number] ADMIN. INFLUENZA * Preventive Medicine: ??Screenings/Counseling:?BMI ACTION PLAN?Above Normal BMI Follow-up?Dietary management education, guidance, and counseling See treatment section of progress note for complete details of management plan. ?FALL RISK SCREENING?Fall Risk Assessment:?No falls in the past year * * Sign off status: CompletedVisit Status:?CHK (Check Out) true * Provider: Adrián Rai ([facility])MD Date: 04/09/2024 Generated for Printing/Faxing/eTransmitting on:?02/16/2025 07:02 AM EST History and Physical Notes * [...]
--- OUTSIDE RECORDS SUMMARY | 2025-02-14 14:45 | XMS_ITS | Encounter Summary ---
Author Organization [facility] Address [address] [place] [address] Care Team Providers Care Inspector Materials And Processes Name Role Phone Paolo Rai MD Primary Care Provider Reason for Referral * Genetic Testing (Routine) - Pending ReviewSpecialtyDiagnoses / Procedures Referred By ContactReferred To ContactLab Diagnoses Suprasellar mass Procedures T4, free Valentin Cohen MD [address] [place] [address] Phone: tel: fax: Referral IDStatusReasonStart DateExpiration DateVisits RequestedVisits [id number] * Imaging (Routine) - Pending ReviewSpecialtyDiagnoses / ProceduresReferred By ContactReferred To ContactRadiology Diagnoses Suprasellar mass Procedures MR pituitary w and wo IV contrast Valentin Cohen MD [address] [place] [address] Phone: tel: fax: Referral IDStatusReasonStart DateExpiration DateVisits RequestedVisits [id number] [id number] Reason for Visit * ReasonCommentsConsultPatient is here today for a consultation for benign meningioma Encounter Details DateTypeDepartmentCare Team (Latest Contact Info)Lpvmpmorhwn03/17/2025 2:45 PM ESTConsult [facility] [address] [place] [address] Valentin Cohen MD [address] [place] [address] Suprasellar mass (Primary Dx) Social History Tobacco UseTypesPacks/DayYears UsedDateSmoking Tobacco: FormerCigarettes 01/17/1972 - 08/20/1975Smokeless Tobacco: Never Tobacco Cessation:Counseling Given: Not Answered Alcohol UseStandard Drinks/WeekCommentsNot Currently0 (1 standard drink = 0.6 oz pure alcohol)PHQ-2AnswerDate RecordedPatient Health Questionnaire-2 Score0 02/14/2025CommentsUnknownSex and Gender InformationValueDate RecordedSex Assigned at RdjhiNsqjsp50/10/2025 4:37 AM EDTLegal GztUseskm19/10/2025 11:02 AM ESTGender IdentityChoose not to eypgpmvz58/10/2025 4:37 AM EDTSexual Orientation Choose not to xpqcamuo31/10/2025 4:37 AM EDTdocumented as of this encounter Last Filed Vital Signs Vital SignReadingTime TakenCommentsBlood Ssecinte584/ 2:43 PM EST Zgblw801202/14/2025 2:43 PM ESTTemperature--Respiratory Rate--Oxygen Saturation 100%02/14/2025 2:43 PM ESTInhaled Oxygen Concentration--Ysrgwk199 kg (295 lb) 02/14/2025 2:43 PM UYHQmxnbx625 cm (5' 3 )02/14/2025 2:43 PM ESTBody Mass Index 52.26104/16/2024 2:43 PM ESTdocumented in this encounter Functional Status * BPAnswerDate of QafefidoqhZffazh594/ 2:43 PM Shaila Carrion MA * PulseAnswerDate of YvclkaqbnbAqcwda6472/17/2025 2:43 PM Shaila Carrion MA * Patient PositionAnswerDate of OaysnyuyhmPraeooBreqcjr89/17/2025 2:43 PM Shaila Yu MA * Fall RiskQuestionAnswerDate of AssessmentAuthorWorried about fallin 02/14/2025 2:44 PM Shaila Carrion MAOne or more falls in the last year:No 02/14/2025 2:44 PM Shaila Carrion MAFeels unsteady when walkin 02/14/2025 2:44 PM Shaila Carrion MA * BPAnswerDate of DegodmgnozJunxjp345/80104/16/2024 2:43 PM Shaila Carrion MA * PulseAnswerDate of HsfvanhmwyJatqec9101/17/2025 2:43 PM Shaila Carrion MA * IuJ7HwavmeFbnt of OcvyhvdrguYxqmks95676/17/2025 2:43 PM Shaila Carrion MA * Over the past 2 weeks, how often have you been bothered by any of the following problems?QuestionAnswerDate of AssessmentAuthorLittle interest or pleasure in doing thingsNot at all02/14/2025 2:45 PM Shaila Carrion MA Feeling down, depressed, or hopelessNot at all02/14/2025 2:45 PM Shaila Carrion MAPatient Health Questionnaire-2 Xtngs78604/16/2024 2:45 PM Shaila Carrion MA * BP LocationAnswerDate of AssessmentAuthorLeft arm02/14/2025 2:43 PM Shaila Carrion MA * Modified Malnutrition Screen Tool (MST)QuestionAnswerDate of AssessmentAuthor Have you been eating poorly because of a decreased appetite?No02/14/2025 2:44 PM Shaila Carrion MAHave you recently lost weight without trying?No 02/14/2025 2:44 PM Shaila Carrion MA * Patient PositionAnswerDate of EunhxswdlzYnawlhUhcmvnh86/17/2025 2:43 PM Shaila Yu MA documented as of this encounter Plan of Treatment DateTypeDepartmentCare Team (Latest Contact Info)Hiwwdnqhfhz90/15/2025 9:20 AM ESTOffice Visit [facility] [address] [place] [address] Latonya Mac MD [address] [facility] [address] MS:[place] [address] 05/17/2025 12:30 PM ESTAppointment [facility] Ortho MR Imaging [address] [address] 05/17/2025 1:15 PM ESTFollow-Up [facility] Surgery Clinic [address] [place] [address] Valentin Cohen MD [address] [place] [address] NameTypePriorityAssociated DiagnosesOrder ScheduleMR pituitary w and wo IV contrastImagingRoutine Suprasellar mass Expected: 05/17/2025, Expires: 02/14/2026reatinine, SerumLabRoutine Suprasellar mass Expected: 02/14/2025 (Approximate), Expires: 02/14/2026EstradiolLabRoutine Suprasellar mass Expected: 02/14/2025 (Approximate), Expires: 02/14/2026ortisolLabRoutine Suprasellar mass Expected: 02/14/2025 (Approximate), Expires: 02/14/2026Luteinizing hormoneLab Routine Suprasellar mass Expected: 02/14/2025 (Approximate), Expires: 02/14/2026Follicle stimulating hormoneLabRoutine Suprasellar mass Expected: 02/14/2025 (Approximate), Expires: 02/14/2026Glucose, fastingLab Routine Suprasellar mass Expected: 02/14/2025 (Approximate), Expires: 02/14/2026Insulin-like growth factor 1LabRoutine Suprasellar mass Expected: 02/14/2025 (Approximate), Expires: 02/14/2026T4, freeLabRoutine Suprasellar mass Expected: 02/14/2025 (Approximate), Expires: 02/14/2026TSHLabRoutine Suprasellar mass Expected: 02/14/2025 (Approximate), Expires: 02/14/2026ProlactinLabRoutine Suprasellar mass Expected: 02/14/2025 (Approximate), Expires: 02/14/2026documented as of this encounter Visit Diagnoses Diagnosis Suprasellar mass- Primary documented in this encounter Care Teams Team MemberRelationshipSpecialtyStart DateEnd Date Paolo Rai MD [address] [facility] [place] [address] PCP - General05/07/24documented as of this encounter
--- OUTSIDE RECORDS SUMMARY | 2025-02-16 07:02 | XMS_ITS | Clinical Summary ---
Author Organization [employer] [facility] tem Address [id number] [address] [place] [address] Care Team Providers Care Supervisor Rose Grading Name Role Phone Paolo Rai MD Primary Care Provider [phone] Social History Tobacco UseTypesPacks/DayYears UsedDateSmoking Tobacco: Never AssessedChildcare AnswerDate FvukoiwjMvymgsxygAlbbaoi40/12/2019EmploymentAnswerDate Recorded OwmcpovbciZovleev57/12/2019CommentsUnknownSex and Gender Information ValueDate RecordedSex Assigned at BirthNot on fileLegal DvpObvhhl24/06/2015 11:53 AM EDTGender IdentityNot on fileSexual OrientationNot on file Plan of Treatment Not on file Medical Devices Not on file Insurance * Guarantor: Charlee Nagy TypeRelation to PatientDate of PhoneBilling AddressPersonal/OsntgcZtcf87/26/1951 (Home) [address] [place] [address] Care Teams Team MemberRelationshipSpecialtyStart DateEnd Date Paolo Rai MD [address] [place] [address] [facility]ewqa[facility]
--- OUTSIDE RECORDS SUMMARY | 2025-02-16 07:02 | XMS_ITS | Clinical Summary ---
Author Organization [facility] Address [address] [place] [address] Care Team Providers Care Warp Knitter Name Role Phone Paolo Rai MD Primary Care Provider [phone] Allergies No known active allergies Medications MedicationSigDispense [...] Problems ProblemNoted DateDiagnosed DateSleep apnea08/06/2024TIA (transient ischemic attack)05/09/20241655Bdoorglrgehquh98/09/2025Essential xojegrnfugpz38/09/2025DOE (dyspnea on exertion)05/09/2024Morbid obesity with BMI of 50.0-59.9, adult 05/09/2024Ductal carcinoma in situ (DCIS) of right ijhloa0108/14/2017 Encounters DateTypeDepartmentCare LhbrFtluiqnbqfv78/17/2025 2:45 PM ESTConsult [facility] Surgery Clinic [address] [place] [address] Valentin Cohen MD Suprasellar mass (Primary Dx)01/05/2025 - 01/05/2025 11:59 PM EDTHospital Encounter [facility] Radiology External Films [address] [place] [address] Discharge Disposition: Home or Self Care (01)from Last 3 Months Family History Medical HistoryRelationNameCommentsCancerFatherLiverCoronary artery disease FatherLiverHyperlipidemiaFatherLiverHypertensionFatherLiverCancerMotherIvs HyperlipidemiaMotherIvsHypertensionMotherIvsStrokeMotherIvsCancerSister 1Gloria CancerSister 2PhyllisRelationNameStatusCommentsFatherLiverMotherIvsSister 1 GloriaAliveSister 2PhyllisAlive Social History Tobacco UseTypesPacks/DayYears UsedDateSmoking Tobacco: FormerCigarettes 01/17/1972 - 08/20/1975Smokeless Tobacco: Never Tobacco Cessation:Counseling Given: Not Answered Alcohol UseStandard Drinks/WeekCommentsNot Currently0 (1 standard drink = 0.6 oz pure alcohol)PHQ-2AnswerDate RecordedPatient Health Questionnaire-2 Score0 02/14/2025CommentsUnknownSex and Gender InformationValueDate RecordedSex Assigned at YgtihXqmmnt61/10/2025 4:37 AM EDTLegal VerMlcjyl37/10/2025 11:02 AM ESTGender IdentityChoose not to uhaxglxb64/10/2025 4:37 AM EDTSexual Orientation Choose not to ccldjoso96/10/2025 4:37 AM EDT Last Filed Vital Signs Vital SignReadingTime TakenCommentsBlood Lwhyngah362/80104/16/2024 2:43 PM EST Vvbax967102/14/2025 2:43 PM ESTTemperature--Respiratory Rate--Oxygen Saturation 100%02/14/2025 2:43 PM ESTInhaled Oxygen Concentration--Ybicjm312 kg (295 lb) 02/14/2025 2:43 PM ICMSccsef080 cm (5' 3 )02/14/2025 2:43 PM ESTBody Mass Index 52.26104/16/2024 2:43 PM EST Plan of Treatment DateTypeDepartmentCare Team (Latest Contact Info)Txqpfsxfxgr52/15/2025 9:20 AM ESTOffice Visit [facility] [address] [place] [facility] [place] [address] Latonya Mac MD [address] [facility] [address] MS:[place] [address] 05/17/2025 12:30 PM ESTAppointment [facility] Medical [facility]ilion Ortho MR Imaging [address] [place] [address] 05/17/2025 1:15 PM ESTFollow-Up [facility] Surgery Clinic [address] [place] [address] Valentin Cohen MD [address] [place] [address] Health MaintenanceDue DateLast DoneCommentsCT Kczlxjuixcqy99/26/1952Colonoscopy 2Colorectal Cancer Hzzajnndn44/26/1952Diabetes: Hemoglobin A1C 1951FIT-DNA1951FIT1951FOBT1951Medicare Annual Wellness (AWV)1950 7310Uykfjvprqxlye17/26/1952Diabetes: Retinopathy Whgdihkjf80/26/1962 Diabetes: Urine Protein Riwqzgvvk08/26/1971Adult Mxwmrwv0405/26/1973Mammogram 1991Zoster Vaccines (1 of 2)2001Pneumococcal Vaccine: 50+ Years (2 of 2 - PCV), 09/06/2016COVID-19 Vaccine ( - season) 2024Depression Zmpjvmprd95Fall Risk Vlxnkudfz66/17/2026 02/14/2025Influenza GrtadzrPhiymvugk08/10/2025, 12/31/2023, 02/03/2023, Additional history existsHIB VaccinesAged OutNo longer eligible [...] patient's age to complete this topic Rotavirus VaccinesAged OutNo longer eligible based on patient's age to complete this topic Procedures Procedure NamePriorityDate/TimeAssociated DiagnosisCommentsMR TRANSFER OF OUTSIDE TADTLAmkegib16/08/2025 12:00 AM EDT from Last 3 Months [...] Number IMAGING from Last 3 [place] [address] [place], JOSE [id number] Care Teams Team MemberRelationshipSpecialtyStart DateEnd Paolo Rai MD [address] [place] [address] PCP - General05/07/24
--- OUTSIDE RECORDS SUMMARY | 2025-02-16 07:02 | XMS_ITS | Patient Health Record ---
Author Organization The [facility] [place] Address [address] [place] [address] Care Team Providers Care Shipping/Receiving Manager Name Role Phone Chino Rai Primary Care Provider [phone] Allergies Allergen (clinical drug ingredient) Drug/Non Drug Allergy documented on EMR Reaction Allergy Type Onset Date Status fluticasone / vilanterol Breo Ellipta mouth ulcers Drug Al lergy Active Results Component Value Reference Range Notes Prothrombin Time INR Reviewed date:03/18/2024 02:50:12 PM Interpretation: Performing Lab: Notes/Report: [facility] , Prothrombin Time 10.2 9.0-11.6 sec INR0.96 2.5-3.5 RECURRENT THROMBOSIS DESIRED INR: 2.0-3.0 CONDITIONS NOT LISTED BELOW 2.5-3.5 FOR PROSTHETIC HEART VALVE REPLACEMENT Performing Lab:see noteML - [facility] LBCA echo doppler complete Reviewed date:03/19/2024 04:29:46 PM Interpretation: Performing Lab: Notes/Report: Source Facility: [place] [address] Cardiology Report Signed Patient: JOSS WASHINGTON MR#: [id number] : 1950 Acct:[id number] Age/Sex: 73 / F ADM Date: 03/18/24 Loc: MS 215-[address]: Lawrence Rai M.D. Ordering Physician: Lawrence Rai M.D. Date of Service: 03/19/24 Procedure(s): CA echo doppler complete Accession Number(s): [id number] cc: Lawrence Rai M.D. Patient Name: JOSS WASHINGTON MR#: [id number] : 1950 Exam Date: 03/19/2024 Ordering Doctor: [...] Signed By: 03/19/24 1421 DD/ 1419 TD/TT: Disability Advocate:CREATININE Reviewed date:05/31/2024 09:17:54 PM Interpretation: Performing Lab: Notes/Report: [facility] ,Creatinine1.130.55-1.02 mg/dLEstimated GFR ( Hrfmdju77>=60 mL/min/1.73m 2Estimated GFR (Non- Ame47>=60 mL/min/1.73m 2Performing Lab:see noteML - [facility] LBFREE T3 Reviewed date:08/31/2024 04:15:45 PM Interpretation: Performing Lab: Notes/Report: [facility] ,Free T31.502.18-3.98 pg/mLPerforming Lab:see noteML - [facility] LB PROF CHEM 8 (BAS METB) Reviewed date:08/31/2024 04:15:45 PM Interpretation: Performing Lab: Notes/Report: [facility] ,Czxiiy739937-363 mmol/LPotassium5.43.5-5.1 mmol/XEqmaepxg40609-392 mmol/LCarbon Aamtakd14.921.0-32.0 mmol/LAnion Gap11.7Mwcaaqg13695-997 mg/dLBlood Urea Nujzsqcg17.07.0-18.0 mg/dLCreatinine1.090.55-1.02 mg/dLEstimated GFR ( Sxngair63>=60 mL/min/1.73m 2Estimated GFR (Non- Ame49>=60 mL/min/1.73m 2 BUN Creatinine Ratio28.1Gmwmpwr8.48.5-10.1 mg/dLPerforming Lab:see noteML - [facility] LBT4 Reviewed date:08/31/2024 04:15:45 PM Interpretation: Performing Lab: Notes/Report: [facility] ,T4 Thyroxine4.904.80-13.90 ug/dLPerforming Lab:see noteML - [facility] LBTSH Reviewed date:08/31/2024 04:15:45 PM Interpretation: Performing Lab: Notes/Report: [facility] ,Thyroid Stimulating Hormone3.5490.358-3.740 uIU/mLPerforming Lab:see noteML - [facility] LBCBC AUTO DIFF Reviewed date:02/10/2025 12:54:50 PM Interpretation: Performing Lab: Notes/Report: [facility] ,White Blood Count8.24.0-11.0 10 3/uLRed Blood Count3.704.20-5.40 10 6/uL Eebopnfycg86.512.0-16.0 g/yEUbmtwigzte09.936.0-48.0 %Mean Corpuscular Ntlgfv19.7 81.0-99.0 fLMean Corpuscular Xjacyrytad98.126.7-34.0 pgMean Corpuscular HGB Conc 31.229.9-35.2 g/dLRed Cell Distribution Width12.811.0-15.0 %Platelet Ybzui836 150-450 10 3/uLMean Platelet Volume9.09.5-13.5 fLNeutrophils Percent Auto71.0 43.0-75.0 %Lymphocytes Percent Auto18.920.5-60.0 %Monocytes Percent Auto6.51.7- 12.0 %Eosinophils Percent Auto1.90.9-7.0 %Basophils Percent Auto0.40.2-2.0 % Immature Granulocytes Pct Auto1.30.0-0.5 %Neutrophils Absolute Auto5.81.4-6.5 10 3/uLLymphocytes Absolute Auto1.61.2-3.8 10 3/uLMonocytes Absolute Auto0.50.3- 0.8 10 3/uLEosinophils Absolute Auto0.20.0-0.7 10 3/uLBasophils Absolute Auto0.0 0.0-0.1 10 3/uLImmature Granulocytes Abs Auto0.110.00-0.03 10 3/uLPerforming Lab:see noteML - [facility] LBFREE T3 Reviewed date:02/10/2025 12:54:50 PM Interpretation: Performing Lab: Notes/Report: [facility] ,Free T31.652.18-3.98 pg/mLPerforming Lab:see note - [facility] LB INSULIN Reviewed date:02/12/2025 12:58:14 PM Interpretation: Performing Lab: Notes/Report: [facility] ,Cvgvjuk82.22.6-24.9 uIU/mL Pretzel Twister: Dimitris Morales PhD, Phone: [phone] Performed at: [facility] Lab[address] [id number] Performing Lab:see note - [facility] LBIRON Reviewed date:02/10/2025 12:54:50 PM Interpretation: Performing Lab: Notes/Report: [facility] ,Iron44.050.0-170.0 ug/dLPerforming Lab:see note - [facility] LB LIPID PROFILE Reviewed date:02/10/2025 12:54:50 PM Interpretation: Performing Lab: Notes/Report: [facility] ,Wvsshypwwadje962<=150 mg/oSHrkrgeslvtd336<=200 mg/dLHDL Ptvikxxyhpu7215-70 mg/dL > or =60 mg/dl - LOW CARDIOVASCULAR RISK <40 mg/dl - HIGH CARDIOVASCULAR RISK LDL Cholesterol Lakphcfuou05.0 <100 mg/dl OPTIMAL 160-189 mg/dl HIGH 130-159 mg/dl BORDERLINE HIGH >190 mg/dl VERY HIGH 100-129 mg/dl NEAR OR ABOVE OPTIMAL VLDL XKNXKKDJMGW53.0Chol HDL Ratio2.9 >11.0 HIGH RISK 4.4 - 7.1 AVERAGE RISK 3.3 - 4.4 LOW RISK 7.1 - 11.0 MODERATE RISK Performing Lab:see note - [facility] LBPROF 14(COMP METB) Reviewed date:02/10/2025 12:54:50 PM Interpretation: Performing Lab: Notes/Report: [facility] ,Qrooql084925-609 mmol/LPotassium4.63.5-5.1 mmol/GPeblykwr27354-303 mmol/LCarbon Rjzuwwk61.721.0-32.0 mmol/LAnion Gap9.0Vziowkk28958-476 mg/dLBlood Urea Tvbfbeoo42.07.0-18.0 mg/dLCreatinine1.230.55-1.02 mg/dLEstimated GFR ( Mmzsgsu51>=60 mL/min/1.73m 2Estimated GFR (Non- Ame43>=60 mL/min/1.73m 2 BUN Creatinine Ratio18.2Xtndhqh8.58.5-10.1 mg/dLBilirubin Total0.30.2-1.0 mg/dL Aspartate Amino Oecysrnnrps678-99 U/LAlanine Rkhauaxgdeoisvid9876-85 U/LAlkaline Bxyycspwcni46383-877 U/LTotal Protein7.16.4-8.2 g/dLAlbumin Level3.13.4-5.0 g/dLGlobulin4.0Albumin Globulin Ratio0.8Performing Lab:see note - [facility] LBT4 Reviewed date:02/10/2025 12:54:50 PM Interpretation: Performing Lab: Notes/Report: [facility] ,T4 Thyroxine5.704.80-13.90 ug/dLPerforming Lab:[facility] LBTSH Reviewed date:02/10/2025 12:54:50 PM Interpretation: Performing Lab: Notes/Report: [facility] ,Thyroid Stimulating Hormone2.5020.358-3.740 uIU/mLPerforming Lab:see noteML - [facility] LBGLYCOHEMOGLOBIN A1C Reviewed date:02/10/2025 02:42:07 PM Interpretation: Performing Lab: Notes/Report: [facility] ,Glycohemoglobin A1C6.44.5-6.2 % ACTION SUGGESTED > 7.0 ADA RECOMMENDED LIMIT 4.0 - 6.0 ADA THERAPEUTIC TARGET < 7.0 Estimated Average Ylteshu269Dilnbvhhrr Lab:see note - [facility] LB MR head/brain wo con Reviewed date:12/29/2024 05:52:14 PM Interpretation: Performing Lab: Notes/Report: Source Facility: [place] [address] Magnetic Resonance Report Signed Patient: JOSS WASHINGTON MR#: [id number] : 1950 Acct:[id number] Age/Sex: 74 / F ADM Date: 12/29/24 Loc: MRI Attending Dr: Lawrence Rai M.D. Ordering Physician: Lawrence Rai M.D. Date of Service: 12/29/24 Procedure(s): MR head/brain wo con Accession Number(s): [id number] cc: Lawrence Rai M.D. [place] [address] Patient Name: JOSS WASHINGTON MRN: [id number] date: 1950 Sex: F Assigned Patient Location: MRI Current Patient Location: SLEEP Accession/Order Number: [id number] Exam Date: 12/29/2024 09:40 Report Date: 12/29/2024 [...] Reilly M.D. 12/29/2024 1:05 PM Dictation Location: [place] [address] Electronically authenticated by: [id number] Y Date: 12/29/2024 13:05 Dictated By: Levi Reilly M.D. Signed By: 12/29/24 1308 DD/ 1305 TD/TT: Disability Advocate:TSH Reviewed date:08/19/2024 08:01:15 PM Interpretation: Performing Lab: Notes/Report: [facility] ,Thyroid Stimulating Hormone4.1430.358-3.740 uIU/mLPerforming Lab:see noteML - [facility] LBT4 Reviewed date:08/19/2024 08:01:15 PM Interpretation: Performing Lab: Notes/Report: [facility] ,T4 Thyroxine6.604.80-13.90 ug/dLPerforming Lab:see noteML - [facility] LBPROF 14(COMP METB) Reviewed date:08/19/2024 08:01:15 PM Interpretation: Performing Lab: Notes/Report: [facility] ,Cskgkt853772-345 mmol/LPotassium4.93.5-5.1 mmol/ZArewhdnw04623-544 mmol/LCarbon Akbwmce56.321.0-32.0 mmol/LAnion Gap12.4Uugnwao20793-959 mg/dLBlood Urea Nyjikcnr99.07.0-18.0 mg/dLCreatinine1.280.55-1.02 mg/dLEstimated GFR ( Etxksnv52>=60 mL/min/1.73m 2Estimated GFR (Non- Ame41>=60 mL/min/1.73m 2 BUN Creatinine Ratio28.9Vkeygni1.68.5-10.1 mg/dLBilirubin Total0.40.2-1.0 mg/dL Aspartate Amino Aopvlsrznxc3107-62 U/LAlanine Zmmfpywmouqtidhm4819-39 U/L Alkaline Afebrupwlua96166-034 U/LTotal Protein7.46.4-8.2 g/dLAlbumin Level3.0 3.4-5.0 g/dLGlobulin4.4Albumin Globulin Ratio0.7Performing Lab:see noteML - [facility] LBGLYCOHEMOGLOBIN A1C Reviewed date:08/19/2024 08:01:15 PM Interpretation: Performing Lab: Notes/Report: [facility] ,Glycohemoglobin A1C6.44.5-6.2 % ADA THERAPEUTIC TARGET < 7.0 ACTION SUGGESTED > 7.0 ADA RECOMMENDED LIMIT 4.0 - 6.0 Estimated Average Vautiaa129Rckmjfznqn Lab:see noteML - [facility] LB FREE T3 Reviewed date:08/19/2024 08:01:15 PM Interpretation: Performing Lab: Notes/Report: [facility] ,Free T32.442.18-3.98 pg/mLPerforming Lab:see noteML - [facility] LB MR head/brain wo/w con Reviewed date:06/15/2024 08:28:39 PM Interpretation: Performing Lab: Notes/Report: Source Facility: [facility]-[address] [place] [address] [place] [address] Magnetic Resonance Report Signed Patient: JOSS WASHINGTON MR#: [id number] : 1950 Acct:[id number] Age/Sex: 74 / F ADM Date: 06/15/24 Loc: MRI Attending Dr: Lawrence Rai M.D. Ordering Physician: Lawrence Rai M.D. Date of Service: 06/15/24 Procedure(s): MR head/brain wo/w con Accession Number(s): [id number] cc: Lawrence Rai M.D. [place] [address] Patient Name: JOSS WASHINGTON MRN: [id number] date: 1950 Sex: F Assigned Patient Location: MRI Current Patient Location: MRI Accession/Order Number: [id number] Exam Date: 06/15/2024 19:40 Report Date: 06/15/2024 [...] Finesse Horton M.D.06/15/2024 7:50 PM Dictation Location: [place] [address] Electronically authenticated by: [id number] Y Date: 06/15/2024 19:50 Dictated By: Finesse Horton M.D. Signed By: 06/15/241952 DD/ 49 TD/TT: Disability Advocate:ROSANNA 30 day event monitor Reviewed date:05/23/2024 09:10:54 AM Interpretation: Performing Lab: Notes/Report: Source Facility: [place] [address] [address] Cardiology Report Signed Patient: JOSS WASHINGTON MR#: [id number] : 1950 Acct:[id number] Age/Sex: 73 / F ADM Date: 04/13/24 Loc: CARD Attending Dr: Lawrence Rai M.D. Ordering Physician: Lawrence Rai M.D. Date of Service: 04/13/24 Procedure(s): ROSANNA 30 day event monitor Accession Number(s): [id number] cc: Lawrence Rai M.D. 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 Signed By: 05/21/24175505/21/241755 DD/ 0 TD/TT: Disability Advocate:ROSANNA harvey limited Reviewed date:05/15/2024 02:01:07 PM Interpretation: Performing Lab: Notes/Report: Source Facility: [facility]-[address] [place] [address] Cardiology Report Signed Patient: JOSS WASHINGTON MR#: [id number] : 1950 Acct:[id number] Age/Sex: 73 / F ADM Date: 05/14/24 Loc: CARD Attending Dr: John Yin M.D. Ordering Physician: John Yin M.D. Date of Service: 05/14/24 Procedure(s): CA echo limited Accession Number(s): [id number] cc: Lawrence Rai M.D.; John Yin M.D. Patient Name: JOSS WASHINGTON MR#: [id number] : 1950 Exam Date: 05/14/2024 Ordering Doctor: [...] COLBERT Signed By: 05/14/241837 DD/ 36 TD/TT: Disability Advocate:ROSANNA holter monitor 7-15 days Reviewed date:04/08/2024 09:56:20 PM Interpretation: Performing Lab: Notes/Report: Source Facility: [place] [address] Cardiology Report Signed Patient: JOSS WASHINGTON MR#: [id number] : 1950 Acct:[id number] Age/Sex: 73 / F ADM Date: 03/18/24 Loc: MS 215- Attending Dr: Lawrence Rai M.D. Ordering Physician: Lawrence Rai M.D. Date of Service: 03/19/24 Procedure(s): ROSANNA holter monitor 7-15 days Accession Number(s): [id number] cc: Lawrence Rai M.D. 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 Signed By: 04/08/24211004/08/242110 DD/ 4 TD/TT: Disability Advocate:CT stroke head/brain wo con Reviewed date:03/18/2024 02:50:12 PM Interpretation: Performing Lab: Notes/Report: Source Facility: [place] [address] CT Scan Report Signed Patient: JOSS WASHINGTON MR#: [id number] : 1950 Acct:[id number] Age/Sex: 73 / F ADM Date: 03/18/24 Loc: ER Attending Dr: Ordering Physician: Janet Lopes Date of Service: 03/18/24 Procedure(s): CT stroke head/brain wo con Accession Number(s): [id number] cc: Lawrence Rai M.D. [place] [address] Patient Name: JOSS WASHINGTON MRN: [id number] date: 1950 Sex: F Assigned Patient Location: ER Current Patient Location: ER Accession/Order Number: [id number] Exam Date: 03/18/2024 11:25 Report Date: 03/18/2024 11:41 At the request of: JANET LOEPS Procedure: CT stroke head/brain wo con EXAM: [...] Signed By: 03/18/24 1144 DD/ 1141 TD/TT: Disability Advocate:CT angio head Reviewed date:03/18/2024 02:50:12 PM Interpretation: Performing Lab: Notes/Report: Source Facility: [place] [address] CT Scan Report Signed Patient: JOSS WASHINGTON MR#: [id number] : 1950 Acct:[id number] Age/Sex: 73 / F ADM Date: 03/18/24 Loc: ER Attending Dr: Ordering Physician: Janet Lopes Date of Service: 03/18/24 Procedure(s): CT angio head Accession Number(s): [id number] cc: Lawrence Rai M.D. [place] [address] Patient Name: JOSS WASHINGTON MRN: [id number] date: 1950 Sex: F Assigned Patient Location: ER Current Patient Location: ER Accession/Order Number: [id number] Exam Date: 03/18/2024 12:50 Report Date: 03/18/2024 [...] Signed By: 03/18/24 1326 DD/ 1323 TD/TT: Disability Advocate:CT angio neck Reviewed date:03/18/2024 02:50:12 PM Interpretation: Performing Lab: Notes/Report: Source Facility: [place] [address] CT Scan Report Signed Patient: JOSS WASHINGTON MR#: [id number] : 1950 Acct:[id number] Age/Sex: 73 / F ADM Date: 03/18/24 Loc: ER Attending Dr: Ordering Physician: Janet Lopes Date of Service: 03/18/24 Procedure(s): CT angio neck Accession Number(s): [id number] cc: Lawrence Rai M.D. [place] [address] Patient Name: JOSS WASHINGTON MRN: [id number] date: 1950 Sex: F Assigned Patient Location: ER Current Patient Location: ER Accession/Order Number: [id number] Exam Date: 03/18/2024 12:50 Report Date: 03/18/2024 [...] Signed By: 03/18/24 1326 DD/ 1323 TD/TT: Disability Advocate:ECG 12 lead Reviewed date:03/21/2024 02:14:38 PM Interpretation: Performing Lab: Notes/Report: Source Facility: [place] [address] [place] [address] Electrocardiograph Report Signed Patient: JOSS WASHINGTON MR#: [id number] : 1950 Acct:[id number] Age/Sex: 73 / F ADM Date: 03/18/24 Loc: MS 215-[address]: Lawrence Rai M.D. 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 Signed By: 03/20/24 0753 DD/ 1153 TD/TT: Disability Advocate:PROF [place](COMP METB) Reviewed date:03/18/2024 02:50:12 PM Interpretation: Performing Lab: Notes/Report: [facility] ,Zknkye099887-652 mmol/LPotassium3.83.5-5.1 mmol/AZmvrigtd97588-236 mmol/LCarbon Yfrxyte75.521.0-32.0 mmol/LAnion Gap11.2Yomrcse5828-748 mg/dLBlood Urea Ksarbhxw74.07.0-18.0 mg/dLCreatinine0.970.55-1.02 mg/dLEstimated GFR ( Pamela>60>=60 mL/min/1.73m 2Estimated GFR (Non- Ame56>=60 mL/min/1.73m 2 BUN Creatinine Ratio16.3Lxqlfdk8.18.5-10.1 mg/dLBilirubin Total0.30.2-1.0 mg/dL Aspartate Amino Kszixbzaiak8804-22 U/LAlanine Xddtezdsltkzpfjm0205-67 U/L Alkaline Gwpyqtfrtvj80365-049 U/LTotal Protein7.36.4-8.2 g/dLAlbumin Level3.1 3.4-5.0 g/dLGlobulin4.2Albumin Globulin Ratio0.7Performing Lab:see noteML - [facility] LBCBC AUTO DIFF Reviewed date:03/18/2024 02:50:12 PM Interpretation: Performing Lab: Notes/Report: [facility] ,White Blood Count8.64.0-11.0 10 3/uLRed Blood Count4.104.20-5.40 10 6/uL Ofnecxlsyp40.312.0-16.0 g/wXFxvqtwkiqp62.136.0-48.0 %Mean Corpuscular Tjzzag17.4 81.0-99.0 fLMean Corpuscular Dosgvyvhjx21.026.7-34.0 pgMean Corpuscular HGB Conc 31.529.9-35.2 g/dLRed Cell Distribution Width14.311.0-15.0 %Platelet Bicof883 150-450 10 3/uLMean Platelet Volume9.29.5-13.5 fLNeutrophils Percent Auto64.4 43.0-75.0 %Lymphocytes Percent Auto22.420.5-60.0 %Monocytes Percent Auto8.51.7- 12.0 %Eosinophils Percent Auto3.30.9-7.0 %Basophils Percent Auto0.60.2-2.0 % Immature Granulocytes Pct Auto0.80.0-0.5 %Neutrophils Absolute Auto5.61.4-6.5 10 3/uLLymphocytes Absolute Auto1.91.2-3.8 10 3/uLMonocytes Absolute Auto0.70.3- 0.8 10 3/uLEosinophils Absolute Auto0.30.0-0.7 10 3/uLBasophils Absolute Auto0.1 0.0-0.1 10 3/uLImmature Granulocytes Abs Auto0.070.00-0.03 10 3/uLPerforming Lab:see note - [facility] LBBNP Reviewed date:02/10/2025 12:54:50 PM Interpretation: Performing Lab: Notes/Report: [facility] ,NT Pro B Type Natriuretic Pept80.0<=900.0 pg/mLPerforming Lab:see note - [facility] LBCOVID-19, Flu A+B IH Reviewed date:10/14/2024 03:08:09 PM Interpretation: Performing Lab: Notes/Report: COVID-FLU A-FLU B-Control+XR chest 2V Reviewed date:02/10/2025 12:54:50 PM Interpretation: Performing Lab: Notes/Report: Source Facility: [address] [address] XRay Report Signed Patient: JOSS WASHINGTON MR#: [id number] : 1950 Acct:[id number] Age/Sex: 74 / F ADM Date: 02/10/25 Loc: LAB Attending Dr: Lawrence Rai M.D. Ordering Physician: Lawrence Rai M.D. Date of Service: 02/10/25 Procedure(s): XR chest 2V Accession Number(s): [id number] cc: Lawrence Rai M.D. [place] [address] Patient Name: JOSS WASHINGTON MRN: [id number] date: 1950 Sex: F Assigned Patient Location: LAB Current Patient Location: LAB Accession/Order Number: [id number] Exam Date: 02/10/2025 07:45 Report Date: 02/10/2025 08:51 At the request of: LAWRENCE RAI MD Procedure: XR chest 2V PA AND LATERAL CHEST: CLINICAL HISTORY: Cough and shortness of breath. Hypertension I10 COMPARISON: None There is no focal parenchymal consolidation, effusion or pneumothorax. The cardiac, hilar and mediastinal silhouettes are within normal limits. There is no vascular congestion. The visualized bony thorax is intact. Degenerative change and subtle dextroscoliotic curvature are visualized at the spine. XR/XR chest 2V IMPRESSION: NO ACUTE CARDIOPULMONARY ABNORMALITY. Impression dictated by: Henny Garza M.D. 02/10/2025 8:51 AM Dictation Location: [place] [address] Electronically authenticated by: [id number] Y Date: 02/10/2025 08:51 Dictated By: Henny Garza M.D. Signed By: 02/10/25 0853 DD/ TD/TT: Disability Advocate:VITAMIN D 25 OH Reviewed date:02/10/2025 12:54:50 PM Interpretation: Performing Lab: Notes/Report: [facility] ,Vitamin D23.7 >100 ng/mL Potential Toxicity <20 ng/mL Vit D deficient 30-100 ng/mL Vit D sufficient 20-<30 ng/mL Vit D insufficient Performing Lab[facility] LBINSULIN Reviewed date:08/21/2024 11:50:54 AM Interpretation: Performing Lab: Notes/Report: [facility] ,Wfqvmwo39.82.6-24.9 uIU/mL Performed at: [facility] Lab[address] [id number] Pretzel Twister: Dimitris Morales PhD, Phone: [phone] Performing [facility] LBSGPT Reviewed date:05/15/2024 02:01:07 PM Interpretation: Performing Lab: Notes/Report: [facility] ,Alanine Xqabiczledkenjij2758-68 U/LPerforming Lab:see [facility] LBSGOT Reviewed date:05/15/2024 02:01:07 PM Interpretation: Performing Lab: Notes/Report: [facility] ,Aspartate Amino Rdvquyubozk3944-79 U/LPerforming Lab:[facility] LBLIPID PROFILE Reviewed date:05/15/2024 02:01:07 PM Interpretation: Performing Lab: Notes/Report: [facility] ,Qnlrbwuyxqwpi376<=150 mg/gJZsshryziehb770<=200 mg/dLHDL Rymwddlgegf9278-00 mg/dL <40 mg/dl - HIGH CARDIOVASCULAR RISK > or =60 mg/dl - LOW CARDIOVASCULAR RISK LDL Cholesterol Ulsmkrwwgs18.0 >190 mg/dl VERY HIGH 100-129 mg/dl NEAR OR ABOVE OPTIMAL <100 mg/dl OPTIMAL 160-189 mg/dl HIGH 130-159 mg/dl BORDERLINE HIGH VLDL ZZGXGGUZRRW91.0Chol HDL Ratio2.5 4.4 - 7.1 AVERAGE RISK >11.0 HIGH RISK 3.3 - 4.4 LOW RISK 7.1 - 11.0 MODERATE RISK Performing Lab:[facility] LB Reason For Referral Diagnosis 1 Chest pain (R07.9) Referral Organization [facility] Referring Provider First Name [place] Referring Provider Last Name Fredi [facility] Card[facility], Spe [facility] Referred Provider Specialty Cardiology Referral Priority Routine Diagnosis 1 Otitis media, left ( H66.92) Referral Organization [facility] Referring Provider First Name [place]ino Referring Provider Last Name Fredi [facility] Maddi Simon Referred Provider Specialty Otolaryngolo gy Referral Priority Routine Diagnosis 1 Benign meningioma (D 32.0) Referral Organization [facility] Referring Provider First Name [place]ino Referring Provider Last Name Fredi [facility]erred Provider Valentin Cohen Referred Provider Specialty Neurosurgery Referral Priority Routine Medications Medication SIG (Take, Route, Frequency, Duration) Notes Start Date End Date Status Ferrous Sulfate 325 (65 Fe) MG 1 tablet Orally d aily; Duration: 30 days 5ActiveSimvastatin 20 MG1 tablet Orally every evening; [...] drop into affected eye Ophthalmic Twice a dayActiveCholecalciferol 50 MCG (2000 UT)1 capsule Orally Once a day; Duration: 90 xaryMUH04ctive Immunizations Vaccine Route Administration Date Status Comme nts Arexvy Unknown 03/07/2023 Administered Flu, (40118) -historic- DvgigNimbqhl12/16/2016AdministeredFlu, Fluad (02462) 65 yrs and older, single-dose syringe (3431-9796)Zhqxqdm56/06/2021AdministeredFlu, Fluad (25838) 65 yrs and older, single-dose syringe (4387-4321)IM Intramuscular 4AdministeredFlu, Fluad (85035) 65 yrs and older, single-dose syringe (8725-8382)IM Pyiyghggbnxfp09/10/2025AdministeredFlu, Fluad (38873) 66 yrs+, single-dose syringe (5537-2051)Vzzcxfc59/21/2022AdministeredFlu, Fluad (23003) 66 yrs+, single-dose syringe (2972-6376)IM Sggqxrsmjezrc12/06/2023dministered Pneumococcal (Pneumovax 23)Quplkvy0809/06/2016AdministeredPneumococcal (Pneumovax 23)Qebcmqb7506/26/2017Administered Social History Tobacco Use: Social History Observation Description Date Details (start date - stop date) Never Smoker NA - NA Tobacco Use/Smoking Question Answer Notes Patient is a nonsmoker Alcohol Screen (Audit-C) Question Answer Notes Did you have a drink containing alcohol in the p ast year? No Shfxgc3DghnhnqhfbghqcUospbqdzLSMFS-P (Standard) Question Answer Notes Did you have a drink containing alcohol in the p ast year? No Ffuhzk0SewveugnupqthmCsunxkeo Problems Problem Type SNOMED Code ICD Code Onset Dates Problem Status W/U Status Risk Notes Problem Morbid obesity (disorder) (03065 6002) Morbid (severe) obesity due to excess calories (E66.01) ActiveconfirmedProblemOverweight (052407861)Overweight (E66.3)Activeconfirmed ProblemPhlebitis and thrombophlebitis of unspecified deep vessels of unspecified lower extremity (I80.209)ActiveconfirmedProblemSpasm of back muscles (062713756)Muscle spasm of back (M62.830)ActiveconfirmedProblemChest pain (16769996)Chest pain (R07.9)ActiveconfirmedProblemHyperlipidaemia (09894831) Hyperlipemia (E78.5)ActiveconfirmedProblemHypertension (26304760)Hypertension (I10)ActiveconfirmedProblemAsthma (372068491)Asthma (J45.909)Activeconfirmed ProblemHypothyroidism (01550017)Hypothyroidism (E03.9)ActiveconfirmedProblem Carpal tunnel syndrome (58063078)Carpal tunnel syndrome (G56.00)Activeconfirmed ProblemNeck pain (32774382)Neck pain (M54.2)ActiveconfirmedProblemEczema (64599144)Eczema (L30.9)ActiveconfirmedProblemAnkle pain (936625848)Ankle pain (M25.579)ActiveconfirmedProblemTransient ischemic attack (960948684)TIA (transient ischemic attack) (G45.9)ActiveconfirmedProblemAcute bronchitis (68372535)Acute bronchitis (J20.9)ActiveconfirmedProblemWell adult (456279023) Well adult (Z00.00)ActiveconfirmedProblemSeasonal allergic rhinitis (469434905) Seasonal allergic rhinitis (J30.2)ActiveconfirmedProblemDiverticulitis (34543243)Diverticulitis (K57.92)ActiveconfirmedProblemChronic fatigue syndrome (35558257)Chronic fatigue syndrome (R53.82)ActiveconfirmedProblemCarcinoma in situ of breast (618805092)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)ActiveconfirmedProblemLesion of ulnar nerve (282702861)Ulnar nerve entrapment, 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)ActiveconfirmedProblemBody mass index 40+ - severely obese (806875265)BMI 50.0-59.9, adult (Z68.43)ActiveconfirmedProblemOtitis media (44748042)Otitis media, left (H66.92)ActiveconfirmedProblemBenign meningioma (978238871)Benign meningioma (D32.0)ActiveconfirmedProblemBenign neoplasm of meninges (843647687)Benign neoplasm of meninges (D32.9)ActiveconfirmedProblem Shoulder impingement syndrome (266488389)Shoulder impingement syndrome (M75.40) ActiveconfirmedProblemTransient ischemic attack (disorder) (126643806)Brain TIA (G45.9)ActiveconfirmedProblemFibromyositis (45697841)Fibromyositis (M79.7)Active confirmedProblemType II diabetes mellitus without complication (500365103) Diabetes mellitus type 2, diet-controlled (E11.9)ActiveconfirmedProblemEssential hypertension (93727828)BP (high blood pressure) (I10)ActiveconfirmedProblem Hypercholesterolemia (15168403)Hypercholesterolemia (E78.00)Activeconfirmed ProblemMixed anxiety and depressive disorder (380249343)Anxiety and depression (F41.8)ActiveconfirmedProblemEdema of left lower leg (620003568)Edema of left lower leg (R60.0)ActiveconfirmedProblemLow back pain (250094646)Low back pain, unspecified (M54.50)Activeconfirmed Vital Signs Heart Rate 128 /min 10/18/2024 Xtrlbnerpoz72.2 degrees Eemwhrufua56/21/5302Ntoszbam11 %10/18/2024lood pressure mm Hg02/07/20258396Otvzsw86 in02/07/2025lood pressure lctgoflf755 mm Hg02/07/20252499Jeenid338.4 lbs104/09/2024BMI54.27 kg/m202/07/2025 Procedures Procedure Date Ordered Date Performed Result Body Sit e Holter Monitor - 24 hrs 04/08/2024 N/A Encounters Encounter Location Date Provider Diagnosis [facility] [address] [place] [address] 12/22/2024 Chino Hoy Benign neoplasm of meninges D32.9 [facility] [address] [place] [address] 12/24/2024 Chino Hoy Otitis media, left H66.92 [facility] [address] [place] [address] 12/29/2024 Chino Hoy Benign meningioma D32.0 [facility] [address] [place] [address] 02/10/[address] [facility] [place] [address] 02/10/2025[facility] [place] [address]/[facility] [facility] [place] [address]/[facility] [place] [address]/Doug HoyAcute kidney injury N17.9 and Hypothyroid E03.9[facility] [facility] [place] [address]/[facility] [facility] [place] [address]/05/2024[facility] [facility] [place] [address]/05/2024[facility] [facility] [place] [address]/ [facility] [facility] [place] [address] 05/20/2024[facility] [facility] [place] [address]/[facility] [facility] [place] [address]/Doug HoyEncounter for other preprocedural examination Z01.818[facility] [facility] [place] [address]/05/2024[facility] [place] [address]/Doug HoyBenign neoplasm of meninges D32.9 [facility] [facility] [place] [address] 07/01/2024[facility] [place] [facility] [place] [address]/[facility] [place] [facility] [place] [place] [address]/05/2024[facility] [place] [facility] [place] [place] [address]/11/2024Doug HoyChest pain R07.9[facility] [place] [place] [place] [address]/ [facility] [facility] [place] [address] 04/14/2024[facility] [place] [place] [place] [address]/Doug HoyAngioma D18.00[place] [address] [place] [address]/Doug HoyNeck pain M54.2[facility] [place] [facility] [place] [place] [address]/ Chino HoyTIA (transient ischemic attack) G45.9 ; Diabetes mellitus type 2, diet- controlled E11.9 ; Anxiety and depression F41.8 and Hypertension G58NjfburvEric [place] [address] [place] [place] [place] [address]/ Chino HoyMorbid (severe) obesity due to excess calories E66.01 ; Hypertension I10 and Chronic fatigue syndrome R53.82[facility] [place] [facility] [place] [place] [address]/Doug HoyAcute bronchitis, unspecified organism J20.9BMelissa [place] [address] [place] [address]/03/2024Doug HoyOtitis media, left H66.92[place] [address] [place] [place] [address]/Doug HoyAcute bronchitis, unspecified organism J20.9[facility] [place] [place] [place] [address]/Doug HoyAcute bronchitis, unspecified organism J20.9[facility] [place] [place] [place] [address]/Doug HoyAcute bronchitis J20.9[facility] [place] [place] [place] [address]/12/2024Doug HoyEncounter for immunization Z23 ; Hypertension I10 ; Chronic fatigue syndrome R53.82 and Diabetes mellitus type 2, diet-controlled E11.9[facility] [address] [place] [place] [place] [address]/Doug HoyAcute bronchitis, unspecified organism J20.9 Assessments Encounter Date Diagnosis (ICD Code) Assessment Notes Treatment Notes Treatment Clinical Notes Section Notes 03/26/2024 TIA (transient ischemic attack) (ICD-10 - G45.9) now on plavvix and asa - holter vwuzrni08/27/2024Diabetes mellitus type 2, diet- controlled (ICD-10 - E11.9)5Acute bronchitis, unspecified organism (ICD-10 - J20.9)Rest and drink more liquids, especially water. You may use a humidifier or vaporizer to help keep the drainage moist. Yvdn-ilh-lzwyold Nasal Saline may help the stuffy and runny nose. Use Ibuprofen and or Tylenol as needed for fever, chills, body aches or pain. Children 5 years old should not be given nkpj-vjr-ykvciml cough and cold medications such as guaifenesin and dextromethorphan. If you're over age 5, you may try hsjz-gow-wjrceek cold medications such as guaifenesin and dextromethorphan, [...] go to the emergency room or call 91013/03/2024Otitis media, left (ICD-10 - H66.92)5Acute bronchitis, unspecified organism (ICD-10 - J20.9)Rest and drink more liquids, especially water. You may use a humidifier or vaporizer to help keep the drainage moist. Nvbm-ygh-ehfljtg Nasal Saline may help the stuffy and runny nose. Use Ibuprofen and or Tylenol as needed for fever, chills, body aches or pain. Children 5 years old should not be given rlub-xgb-adeyrod cough and cold medications such as guaifenesin and dextromethorphan. If you're over age 5, you may try hvlr-bki-nnhxzen cold medications such as guaifenesin and dextromethorphan, [...] go to the emergency room or call [address]/5Acute bronchitis, unspecified organism (ICD-10 - J20.9)Rest and drink more liquids, especially water. You may use a humidifier or vaporizer to help keep the drainage moist. Vwiz-der-nvisrww Nasal Saline may help the stuffy and runny nose. Use Ibuprofen and or Tylenol as needed for fever, chills, body aches or pain. Children 5 years old should not be given vjsf-uom-lrwhdmi cough and cold medications such as guaifenesin and dextromethorphan. If you're over age 5, you may try vfig-bjq-oagujcr cold medications such as guaifenesin and dextromethorphan, [...] go to the emergency [place] or [place] [address]/5Acute bronchitis (ICD-10 - J20.9)5Acute bronchitis, unspecified organism (ICD-10 - J20.9)Rest and drink more liquids, especially water. You may use a humidifier or vaporizer to help keep the drainage moist. Yntg-uhu-ydsybvl Nasal Saline may help the stuffy and runny nose. Use Ibuprofen and or Tylenol as needed for fever, chills, body aches or pain. Children 5 years old should not be given izad-rwb-tomrmcx cough and cold medications such as guaifenesin and dextromethorphan. If you're over age 5, you may try bxii-vzl-jabqspt cold medications such as guaifenesin and dextromethorphan, [...] go to the emergency room or call [address]/12/2024[facility] for immunization (ICD-10 - Z23)02/07/2025 Hypertension (ICD-10 - I10)afmbng355Chest pain (ICD-10 - R07.9)05/19/2024 Angioma (ICD-10 - D18.00)05/24/2024Encounter for other preprocedural examination (ICD-10 - Z01.818)06/15/2024enign neoplasm of meninges (ICD-10 - D32.9) 08/19/2024ute kidney injury (ICD-10 - N17.9)08/19/2024Hypothyroid (ICD-10 - E03.9)12/22/2024enign neoplasm of meninges (ICD-10 - D32.9)12/24/2024Otitis media, left (ICD-10 - H66.92)12/29/2024enign meningioma (ICD-10 - D32.0) 06/21/2024Neck pain (ICD-10 - M54.2)08/11/2024Morbid (severe) obesity due to excess calories (ICD-10 - E66.01)08/11/2024Hypertension (ICD-10 - I10)08/11/2024 Chronic fatigue syndrome (ICD-10 - R53.82)02/07/2025hronic fatigue syndrome (ICD-10 - R53.82)checin labs4Anxiety and depression (ICD-10 - F41.8) 03/26/2024Hypertension (ICD-10 [...] W/AUTO DIFF 12/31/2023 STOOL OCCULT BLOOD 02/07/2025 GLYCOHEMOGLOBIN A1C 08/11/2024 GLYCOHEMOGLOBIN A1C 03/28/2023 INSULIN 08/11/2024 LIPID PROFILE 01/05/2024 LIVER PROFILE 01/05/2024 PROF 14(COMP METB) 08/11/2024 THYROID PROFILE WITH TSH 03/28/2023 MG MAMM DX 3D LT CAD 10/07/2022 XR CHEST 2 V 02/07/2025 XR CHEST 2 V 10/14/2024 THYROID PANEL [...] Coverage Start Date Coverage End Date [facility] [address] [address] [place], [place] [id number] Russel [place] - patient is the [id number] 2016[employer]8 MEDICARE SUPP CLAIM DEPT [address] [place], [place] [id number] Russel Ohelf - patient is the [id number] 2023 Medications Administered Medication Instructions Date of [...] E11.9 insulin resistance Surgical History Surgery Date(Month/Year) Cholecystectomy Rotator Cuff RepairTonsillectomyHernia RepairLumpectomy, rt breastShoulder Decompression, RightHysterectomyHospitalization History Reason Date(Month/Year) Vision changes 03/23
--- OUTSIDE RECORDS SUMMARY | 2025-02-16 07:02 | XMS_ITS | Clinical Summary ---
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 Role Phone Paolo Rai MD Primary Care Provider [phone] Social History Tobacco UseTypesPacks/DayYears UsedDateSmoking Tobacco: Never Assessed CommentsUnknownSex and Gender InformationValueDate RecordedSex Assigned at Not on fileLegal GnuHmdpaa70/15/2023 8:21 PM EDTGender IdentityNot on fileSexual OrientationNot on file Last Filed Vital Signs Vital SignReadingTime TakenCommentsBlood Lcffvvso697/8004 12:00 PM EDT Pulse--Temperature--Respiratory Rate--Oxygen Saturation--Inhaled Oxygen Concentration--Blcckl290 kg (298 lb)07/14/2017 12:00 PM DRODyswyl850 cm (5' 3 ) 07/14/2017 12:00 PM EDTBody Mass Index52.7904 12:00 PM EDT Plan of Treatment DateTypeDepartmentCare Team (Latest Contact Info)Kacpksuyzfr82/12/2025 1:00 PM ESTOffice Visit [facility] [address] [place] [address] Porsha Gary S, AUD [address] [place] [address] 03/15/2025 10:00 AM ESTOffice Visit [facility] [address] [place] [address] Maddi Simon MD [address] [place] [address] Insurance [facility] [address] [place] [address] Care Teams Team MemberRelationshipSpecialtyStart DateEnd Paolo Rai MD [address] [facility] [place] [address] PCP - GeneralFamily Medicine12/24/24
--- OUTSIDE RECORDS SUMMARY | 2025-02-16 07:02 | XMS_ITS | CCD ---
Author Organization [facility] Care Team Providers Care Call Center Operator Name Role Phone KATHERINE DOWNS Attending Unavailable GEREMIAS BERMAN Referring Unavail able CRONIN, KHALID R Attending Unavailable KATHERINE DOWNS Referring Unavailable CRONIN, KHALID Celeste Attending Unavailable CRONIN, KHALID R Referring Unavailable SHANIQUA, JEM Attending Unavailable SHANIQUA, JEM Referring Unavailable SHANIQUA, JEM Attending Unavailable CRONIN, KHALID R Attending Unavailable CRONIN, KHALID R Referring Unavailable CRONIN, KHALID R Referring Unavailable SHANIQUA, JEM Attending Unavailable CRNOIN, KHALID R Attending Unavailable CRONIN, KHALID R Referring Unavailable CRONIN, KHALID R Attending Unavailable CRONIN, KHALID R Attending Unavailable CRONIN, KHALID R Attending Unavailable CRONIN, KHALID R Attending Unavailable CRONIN, KHALID R Attending Unavailable CRONIN, KHALID R Attending Unavailable CRONIN, KHALID R Referring Unavailable CRONIN, KHALID R Attending Unavailable CRONIN, KHALID R Referring Unavailable LISA WILLAMS ([facility]) Attending Unavailabl e CRONIN, KHALID R [...] [Intraductal carcinoma in situ of right breast]Onset: 76-55-4480HbalxljZqpmsjqg mellitus without complication (1 source)Type 2 diabetes mellitus without complications; Translations: [TYPE 2 DM WITHOUT COMPLICATIONS]Onset: 86-16-6707JlsrsasJfmdfscpm of lipid metabolism (2 sources)Hyperlipidemia, unspecified; Translations: [Hyperlipidemia, unspecified]Onset: 06-19-1234AkrmfcuIfjcdoaqm hypertension (3 sources)Essential (primary) hypertension; Translations: [ESSENTIAL PRIMARY HYPERTENSION]Onset: 14-65-3231OdbabhrVtjul connective tissue disease (4 sources)Impingement syndrome of left shoulder; Translations: [IMPINGEMENT SYNDROME LEFT SHOULDER]Onset: 78-46-3703ThfypnwzLhdpa nutritional; endocrine; and metabolic disorders (1 source)Morbid (severe) obesity due to excess calories; Translations: [MORBID SEVERE OBES D/T EXCESS ARIAS]Onset: 03-25-1664VthlksoQqfopzfo codes; unclassified (1 source)Family history of malignant neoplasm of breast; Translations: [FAMILY HX MALIG NEOPLASM OF BREAST]Onset: 84-32-2768WlacvruqRpzmsjtb codes; unclassified (1 source)Family history of malignant neoplasm of trachea, bronchus and lung; Translations: [FAM HX MALIG NEOPLSM TRACH BRON LNG]Onset: 38-27-6954Alrazjkm Residual codes; unclassified (1 source)Family history of malignant neoplasm of other organs or systems; Translations: [FAM HX MALIG NEOPLASM OTH ORGN/SYS]Onset: 74-59-3516Gbchdupm Transient cerebral ischemia (2 sources)Transient cerebral ischemic attack, unspecified; Translations: [Transient cerebral ischemic attack,unspecified]Onset: 79-12-9789Eeezuzs Past or Other Problems Problem ClassificationProblemDateDocumented DateEpisodic/ChronicDeficiency and other anemia (1 source)Anemia, unspecified; Translations: [ANEMIA UNSPECIFIED]Onset: 35-66-0334OshfnsebIedebmda mellitus without complication (1 source)Other abnormal glucose; Translations: [OTHER ABNORMAL GLUCOSE]Onset: 15-37-4769YrxjoeyaCigpg nutritional; endocrine; and metabolic disorders (4 sources)Overweight; Translations: [OVERWEIGHT]Onset: 74-45-1286Cipfjyqx Results Test NameValueInterpretationReference QfxsiYkkcbluc57pq [id number]: John Yin MD Sent: 08/29/2024 3:06 PM EDT To: Gerda Coppola MA Subject: RE: Scan Labs are overall good. Ask her if her blood pressure is better after adding Aldactone/spironolactone Advised patient of Dr. Yin's findings. Patient states her blood pressure is doing great and she feels much better.[facility] Office Visiton 32-70-0046Lzhhqr-up [id number] Joss Washington 1950 F Date Provider Department Center 08/06/2024 [id number] YIN [facility] Family History Problem Relation Age of Onset Hypertension Mother Stroke Mother Hyperlipidemia Mother Hypertension Father Coronary artery disease Father Hyperlipidemia Father Cancer Father Family Status - Relation Status Age at Mother Father Level of Service:19536 [place] OFFICE/OUTPATIENT ESTABLISHED [facility] 30 MIN Reason for Visit and Comments: Hyperlipidemia [182] - Had lipid in May 2024. Hypertension [353151] - She brought BP log with her. Shortness of Breath [424591] - She attributes her MORENO to her weight. Says it's hard for her to walk a lot due to knee pain. Palpitations [054282] - Hasn't had palpitations recently. Transient Ischemic Attack [939447] - Had bubble study in May 2024. She wants to know if she can stop Plavix due to TIA being ruled out.[facility] 66-04-6435Cvsqeg-up [id number] Joss Washington 1950 F Date Provider Department Center 05/07/2024 23033-HHDGCNJOHN YIN [facility] Family History Problem Relation Age of Onset Hypertension Mother Stroke Mother Hyperlipidemia Mother Hypertension Father Coronary artery disease Father Hyperlipidemia Father Cancer Father Family Status - Relation Status Age at Mother Father Level of Service:82291 [place] OFFICE/OUTPATIENT NEW MODERATE MDM 45 MINUTES Reason for Visit and Comments: Chest Pain [518231] - Patient describes it as chest discomfort . Says she was told 40+ years ago that she had mitral valve prolapse. Echo was done with recent admission. Hypertension [521059] - She was admitted to [facility] in Feb 2024 for TIA and hypertension. Hyperlipidemia [182] Shortness of Breath [] - C/o MORENO. Palpitations [] - She wore 7 day Holter after hospital admission. She is currently wearing a 30 day event monitor.[facility] SHOULDER LT 2V or >on 60-53-2454ID SHOULDER LT 2V or >EXAM: Shoulder. HISTORY: [...] Electronically authenticated by: LIBIA GIBBS Date: 2022-03-17 13:[address] [place], [place] [address]MG MAMM ABHAY DIAG W CADon 03-02-5732PX MAMM ABHAY DIAG W CAD Patient: JOSS WASHINGTON Exam Date: 02/08/2022 : 1950 Gender:F Ordering : DR LAWRENCE RAI . Admission #: [id number] Family : Order #: [id number] CLICK HERE TO VIEW EXAM RADIOLOGY REPORT [...] Brandon Lima M.D. on 02/08/2022 at 08:46NormalThe [facility] HospitalT4, T3U, FTI LABCORPon 18-13-8222Nhen Thyroxine Index1.9Obkxzj7.2-4.9The [facility] Hospitalment on above:Performed By: #### THYLC #### [facility] [address] [place] [address] Dr. Sheldon CorderoT3 Xwasof01 %Mpsaju26-48Nay [facility] HospitalCompontiac general hospital on above: Performed By: #### THYLC #### [facility] [address] [place] [address] Dr. Sheldon CorderoT4 [Mass/Vol]6.4 ug/dLNormal4.5-12.0The [facility] on above:Performed By: #### THYLC #### [facility] [address] [place] [address] Dr. Sheldon McdowellC AUTO DIFFon 29-66-0713ZLQC #0.1 103/ulNormal0.0-0.1The [facility] on above:Performed By: #### CBC #### [facility] [address] [address] [address] Sheldon CorderoBasophils/100 WBC (Bld)0.8 %Normal0.2-2.0[facility] Comment on above:Performed By: #### CBC #### [facility] [address] [address] [address] Sheldon Velasquez #0.3 103/ulNormal0.0-0.7The [facility] HospitalComment on above: Performed By: #### CBC #### [facility] [address] [address] [address] Sheldon Fortuneosinophils/100 WBC (Bld)3.8 %Normal0.9-7.0[facility] Comment on above:Performed By: #### CBC #### [facility] [address] [place] [address] Dr. Sheldon Fortunerythrocyte distribution width (RBC) [Ratio]14.6 %Jmgumt52.0-15.0 [facility] CenterComment on above:Performed By: #### CBC #### [facility] [address] [place] [address] Dr. Sheldon CorderoHematocrit (Bld) [Volume fraction]39.3 %Suswja65.0-48.0[facility] CenterComment on above:Performed By: #### CBC #### [facility] [address] [place] [address] Dr. Sheldon CorderoHemoglobin (Bld) [Mass/Vol]12.4 g/fYLxqfyk33.0-16.0[facility] CenterComment on above:Performed By: #### CBC #### [facility] [address] [address] [address] Sheldon Augustin #0.08 10e3/ulCritically high0.00-0.03[facility] Comment on above:Performed By: #### CBC #### [facility] [address] [place] [address] Dr. Sheldon Augustin %1.1 %Critically high0.0-0.5The [facility] HospitalComment on above:Performed By: #### CBC #### [facility] [address] [address] [address] Sheldon Schulz #1.8 103/ulNormal1.2-3.8The [facility] on above:Performed By: #### CBC #### [facility] [address] [address] [address] Sheldon Leunghocytes/100 WBC (Bld)25.1 %Cxugnl70.5-60.0The [facility] HospitalComment on above:Performed By: #### CBC #### [facility] [address] [place] [address] Dr. Sheldon Griffin DIFF REQNONormalThe [facility]othe HospitalComment on above: Performed By: #### CBC #### [facility] [address] [place] [address] Dr. Sheldon Richardson (RBC) [Entitic mass]29.6 ioLmzqgs09.7-34.0The [facility] HospitalComment on above:Performed By: #### CBC #### [facility] [address] [place] [address] Dr. Sheldon Brown (RBC) [Mass/Vol]31.6 g/qYXwbwwu79.9-35.2The [facility] on above:Performed By: #### CBC #### [facility] [address] [place] [address] Dr. Sheldon Brown (RBC) [Entitic vol]93.8 kUTtirci99.0-99.0The [facility] HospitalComment on above:Performed By: #### CBC #### [facility] [address] [place] [address] Dr. Sheldon Xiong #0.4 103/ulNormal0.3-0.8The [facility] on above:Performed By: #### CBC #### [facility] [address] [place] [address] Dr. Sheldon Laneocytes/100 WBC (Bld)5.8 %Normal1.7-12.0[facility] Comment on above:Performed By: #### CBC #### [facility] [address] [place] [address] Dr. Sheldon Lorenz #4.6 103/ulNormal1.4-6.5The [facility] HospitalComment on above:Performed By: #### CBC #### [facility] [address] [place] [address] Dr. Sheldon Oropezautrophils/100 WBC (Bld)63.4 %Jbxtfw74.0-75.0The [facility] HospitalComment on above:Performed By: #### CBC #### [facility] [address] [place] [address] Dr. Sheldon Hernandez mean volume (Bld) [Entitic vol]8.9 fLCritically low 9.5-13.5The [facility] HospitalComment on above:Performed By: #### CBC #### [facility] [address] [place] [address] Dr. Sheldon CorderoPLT277 103/icTffttr793-312Tsx [facility] HospitalComment on above: Performed By: #### CBC #### [facility] [address] [place] [address] Dr. Sheldon CorderoRBC4.19 106/ulCritically low4.20-5.40The [facility] HospitalComment on above:Performed By: #### CBC #### [facility] [address] [place] [address] Dr. Sheldon CorderoWBC7.2 103/ulNormal4.0-11.0The [facility] HospitalComment on above: Performed By: #### CBC #### [facility] [address] [place] [address] Dr. Sheldon CorderoGLYCOHEMOGLOBIN A1Con 99-09-7073HRT RECOMMENDATIONSEE BELOWNormal The [facility] HospitalComment on above:Result Comment: ADA RECOMMENDED LIMIT 4.0 - 6.0 ADA THERAPEUTIC TARGET < 7.0 ACTION SUGGESTED > 7.0Performed By: #### A1C #### [facility] [address] [address] [address] Sheldon CorderoGlucose [Mass/Vol]128 mg/dLMain Campus Medical Center on above:Performed By: #### A1C #### [facility] [address] [place] [address] Dr. Sheldon CorderoHbA1c (Bld) [Mass fraction]6.1 %Normal4.5-6.2The [facility] on above:Performed By: #### A1C #### [facility] [address] [place] [address] Dr. Sheldon Call 12-67-1501Wuac [Mass/Vol]58.0 ug/zMFbwzen62.0-170.0The [facility] on above:Performed By: #### IRON #### [facility] [address] [place] [address] Dr. Sheldon BaxterID PROFILEon 62-42-8913TEBL-HDL RATIO NORMSCleveland ClinicCompontiac general hospital on above:Result Comment: 3.3 - 4.4 LOW RISK 4.4 - 7.1 AVERAGE RISK 7.1 - 11.0 MODERATE RISK >11.0 HIGH RISKPerformed By: #### LIPID, TSH, CMP #### [facility] [address] [place] [address] Dr. Sheldon CorderoCholesterol [Mass/Vol]251 mg/dLCritically high<=200The [facility] on above:Performed By: #### LIPID, TSH, CMP #### [facility] [address] [place] [address] Dr. Sheldon Baumannesterol in HDL [Mass/Vol]70 mg/dLCritically nayk15-94Voi [facility] on above:Performed By: #### LIPID, TSH, CMP #### [facility] [address] [place] [address] Dr. Sheldon Baumannesterol in LDL [Mass/Vol]161.4 mg/dLMain Campus Medical Center on above:Performed By: #### LIPID, TSH, CMP #### [facility] [address] [address] [address] Sheldon CorderoCholesterol.total/Cholesterol in HDL [Mass ratio]3.6 {ratio} NormalThe [facility]othe HospitalComment on above:Performed By: #### LIPID, TSH, CMP #### [facility] [address] [place] [address] Dr. Sheldon Adams NORMAL> or = 60 mg/dl - LOW CARDIOVASCULAR RISK <40 mg/dl - HIGH CARDIOVASCULAR RISKShelby Memorial HospitalComment on above:Performed By: #### LIPID, TSH, CMP #### [facility] [address] [place] [address] Dr. Sheldon CorderoLDL CALC NORMALSEE BELOWNoSCCI Hospital LimaComment on above:Result Comment: <100 mg/dl OPTIMAL 100 - 129 mg/dl NEAR OR ABOVE OPTIMAL 130 - 159 mg/dl BORDERLINE HIGH 160 - 189 mg/dl HIGH >190 mg/dl VERY HIGH Performed By: #### LIPID, TSH, CMP #### [facility] [address] [place] [address] Dr. Sheldon CorderoTriglyceride [Mass/Vol]98 mg/dLNormal<=150The [facility] Comment on above:Performed By: #### LIPID, TSH, CMP #### [facility] [address] [place] [address] Dr. Sheldon CorderoVLDL CALC19.6 mg/dLNoSCCI Hospital LimaComment on above: Performed By: #### LIPID, TSH, CMP #### [facility] [address] [place] [address] Dr. Sheldon CorderoPROF 14(COMP METB)on 14-08-7774Ueuiose [Mass/Vol]3.4 g/dLNormal 3.4-5.0The [facility] HospitalComment on above:Performed By: #### LIPID, TSH, CMP #### [facility] [address] [place] [address] Dr. Sheldon CorderoAlbumin/Globulin [Mass ratio]0.9 {ratio}NormalThe [facility] HospitalComment on above:Performed By: #### LIPID, TSH, CMP #### [facility] [address] [address] [address] Sheldon GriggsP [Catalytic activity/Vol]107 U/THoczlt83-623Ynt [facility] HospitalComment on above:Performed By: #### LIPID, TSH, CMP #### [facility] [address] [address] [address] Sheldon GriggsT [Catalytic activity/Vol]17 U/ZSjytwx38-39Iui [facility] HospitalComment on above:Performed By: #### LIPID, TSH, CMP #### [facility] [address] [address] [address] Sheldon Bradleyon gap [Moles/Vol]10.9 mmol/LNormalThe [facility] Comment on above:Performed By: #### LIPID, TSH, CMP #### [facility] [address] [address] [address] Sheldon CorderoAST [Catalytic activity/Vol]11 U/LCritically zhe32-91Bty [facility] HospitalComment on above:Performed By: #### LIPID, TSH, CMP #### [facility] [address] [address] [address] Sheldon CorderoBilirubin [Mass/Vol]0.3 mg/dLNormal0.2-1.0The [facility] Comment on above:Performed By: #### LIPID, TSH, CMP #### [facility] [address] [address] [address] Sheldon CorderoCalcium [Mass/Vol]9.1 mg/dLNormal8.5-10.1The [facility] Comment on above:Performed By: #### LIPID, TSH, CMP #### [facility] [address] [address] [address] Sheldon CorderoChloride [Moles/Vol]106 mmol/WYjbwvg75-722Tav [facility] Comment on above:Performed By: #### LIPID, TSH, CMP #### [facility] [address] [address] [address] Sheldon CorderoCO2 [Moles/Vol]30.6 mmol/SNzzkmb64.0-32.0The [facility] Comment on above:Performed By: #### LIPID, TSH, CMP #### [facility] [address] [address] [address] Sheldon CorderoCreatinine [Mass/Vol]0.93 mg/dLNormal0.55-1.02The [facility] HospitalComment on above:Performed By: #### LIPID, TSH, CMP #### [facility] [address] [address] [address] Sheldon FortuneGFR-AF VINCENTIAN>60Normal>=60The [facility] HospitalComment on above:Performed By: #### LIPID, TSH, CMP #### [facility] [address] [address] [address] Sheldon FortuneGFR-NON AF VINCENTIAN=60Normal>=60The [facility] HospitalComment on above:Performed By: #### LIPID, TSH, CMP #### [facility] [address] [address] [address] Sheldon CorderoGlobulin (S) [Mass/Vol]4.0 g/dLNormalThe [facility] HospitalComment on above:Performed By: #### LIPID, TSH, CMP #### [facility] [address] [address] [address] Sheldon CorderoGlucose [Mass/Vol]101 mg/hDHrhhlg88-847JdqUniversity [facility] Comment on above:Performed By: #### LIPID, TSH, CMP #### [facility] [address] [address] [address] Sheldon CorderoPotassium [Moles/Vol]4.5 mmol/LNormal3.5-5.1The [facility] Comment on above:Performed By: #### LIPID, TSH, CMP #### [facility] [address] [address] [address] Sheldon CorderoProtein [Mass/Vol]7.4 g/dLNormal6.4-8.2The [facility] Comment on above:Performed By: #### LIPID, TSH, CMP #### [facility] [address] [address] [address] Sheldon CorderoSodium [Moles/Vol]143 mmol/VAepyet200-837Dvp [facility] Comment on above:Performed By: #### LIPID, TSH, CMP #### [facility] [address] [place] [address] Dr. Sheldon Moon nitrogen [Mass/Vol]18.0 mg/dLNormal7.0-18.0The [facility] HospitalComment on above:Performed By: #### LIPID, TSH, CMP #### [facility] [address] [place] [address] Dr. Sheldon Moon nitrogen/Creatinine [Mass ratio]19.4 mg/mgNormalThe [facility] HospitalComment on above:Performed By: #### LIPID, TSH, CMP #### [facility] [address] [place] [address] Dr. Sheldon Galvez 92-04-3949UAT1.774 uIU/mLNormal0.358-3.740The [facility] HospitalComment on above:Performed By: #### LIPID, TSH, CMP #### [facility] [address] [place] [address] Dr. Sheldon CorderoLactic Acidon 01-67-7285Jpfgacy [Mass/Vol]7.5 mg/dLNormal4.5-19.8 [facility] SystemComment on above:Performed By: #### [id number] #### [facility] [address], [place] [address]VLUFqx 70-03-8694DXMIAjlfdt Visit (HILARIO) JOSS WASHINGTON ([id number]) 1950 F Date Time Provider Department 06/11/18 [...] M.D., FACRO ? cc: Lawrence Rai MD [address] [place] [address] ? Katherine Downs MD [facility] [address] [place] [address] ? Dr. Berman ? This note was dictated with Jazmin Naturally Speaking and may contain some grammatical errors due to limitations of the software. Dexter De León RN, was present in the examination room throughout the encounter. Referring Provider: LAWRENCE RAI [[id number]] Allergies As of Date: 06/11/2018 (No Known Allergies) Date Reviewed: 06/11/2018 Reviewed by: Dexter (Rn) CLARA De León - Fully Assessed Reason for Visit: Breast Cancer [519] Primary Visit Diagnosis:Ductal carcinoma in situ (DCIS) of right breast [D05.11] Order(s):[facility] DIAGNOSTIC BILAT [[id number]] Order #: [id number] FUTURE Prescriptions as of 06/11/2018 Sig: VENTOLIN [...] Encounter Status:Closed by FARHEEN CRONIN MD on 06/11/18[facility] 23-37-3291Vedzhhj mass concHNO ID: [id number] Author: Farheen Cronin Service: ? Author Type: [...] examination. ? Signed by: Farheen Cronin M.D., [facility] ? cc: Lawrence Rai MD [address] [place] [id number] ? Katherine Downs MD [facility] [address] [place] [address] ? Dr. Berman ? This note was dictated with Jazmin Naturally Speaking and may contain some grammatical errors due to limitations of the software. Dexter De León RN, was present in the examination room throughout the encounter.NormalKettering Health TroyCNOVon 45-10-5221TRBXQzhrvn Visit (RADTSA) JOSS WASHINGTON ([id number]) 1950 F Date Time Provider Department 02/12/18 [...] M.D., KAY ? cc: Lawrence Rai MD [facility] [place] [address] ? Katherine Downs MD [facility] [address] [place] [address] ? Dr. Berman ? This note was dictated with Radhaon Naturally Speaking and may contain some grammatical errors due to limitations of the software. Dexter De León RN, was present in the examination room throughout the encounter. Referring Provider: LAWRENCE RAI [[id number]] Allergies As of Date: 02/12/2018 (No Known [...] Encounter Status:Closed by FARHEEN CRONIN MD on 02/12/18[facility] 06-98-4136Kkrsgmg mass concHNO ID: [id number] Author: Farheen Cronin Service: (none) Author Type: [...] examination. ? Signed by: Farheen Cronin M.D., [facility] ? cc: Lawrence Rai MD [address] [place] [address] ? Katherine Downs MD [facility] [address] [place] [address] ? Dr. Berman ? This note was dictated with Jazmin Naturally Speaking and may contain some grammatical errors due to limitations of the software. Dexter De León RN, was present in the examination room throughout the encounter.[facility] HospitalPROESSon 65-25-2540Ghundjh mass conc HNO ID: [id number] Author: Lisa Willams Service: (none) Author Type: [...] Dr. Downs at this time. Lisa Willams APRN.[facility] HospitalCNOVbere 46-41-4163NMVP Office Visit (RADTSA) JOSS WASHINGTON ([id number]) 1950 F Date Time Provider Department 12/04/17 [...] M.D., FACRO ? cc: Lawrence Rai MD [address] [place] [address] ? Katherine Downs MD [facility] [address] [place] [address] ? Dr. Berman ? This note was dictated with Dragon Naturally Speaking and may contain some grammatical errors due to limitations of the software. Anatoliy Ha MA was present in the examination room throughout the encounter. Referring Provider: FARHEEN CRONIN [[id number]] Allergies As of Date: 12/04/2017 (No Known [...] Encounter Status:Closed by FARHEEN CRONIN MD on 12/04/17[facility] HospitalCNOVSPon 98-09-5643TYVLBROzhxz () Office (HEMASA) JOSS WASHINGTON ([id number]) 1950 F Date Time Provider Department 12/04/17 [...] Dr. Downs at this time. Lisa Willams APRN.MANAGER ADULT Referring Provider: FARHEEN CRONIN [[id number]] Allergies As of Date: 12/04/2017 (No Known [...] breast*INVALID FOR* Encounter Status:Closed by LISA WILLAMS MANAGER ADULT on 12/10/17[facility] 72-04-7515Fjxcyen mass concHNO ID: [id number] Author: Farheen Cronin Service: (none) Author Type: [...] M.D., FACRO ? cc: Lawrence Rai MD [address] [place] [address] ? Katherine Downs MD [facility] [address] [place] [address] ? Dr. Berman ? This note was dictated with Jazmin Naturally Speaking and may contain some grammatical errors due to limitations of the software. Anatoliy Ha MA was present in the examination room throughout the encounter.[facility] 23-16-7888VKGNRklqaf Visit (RADTSA) JOSS WASHINGTON ([id number]) 1950 F Date Time Provider Department 10/30/17 [...] Cronin M.D., FACRO cc: Lawrence Rai MD [address] [place] [id number] ? Katherine Downs MD [facility] [address] [place] [address] ? Dr. Berman ? This note was dictated with Dragon Naturally Speaking and may contain some grammatical errors due to limitations of the software. Dexter De León RN was present in the examination room throughout the encounter. Referring Provider: FARHEEN CRONIN [[id number]] Allergies As of Date: 10/30/2017 (No Known [...] Encounter Status:Closed by FARHEEN CRONIN MD on 10/30/17NoOhioHealth [facility] General Hospitalon 54-94-7997Emrrwql mass concHNO ID: [id number] Author: Farheen Cronin Service: (none) Author Type: [...] follow-up examination. Signed by: Farheen Cronin M.D., [facility] cc: Lawrence Rai MD [address] [place] [id number] ? Katherine Downs MD [facility] [address] [place] [address] ? Dr. Berman ? This note was dictated with Jazmin Naturally Speaking and may contain some grammatical errors due to limitations of the software. Dexter De León RN was present in the examination room throughout the encounter.NormalKettering Health TroyPROGRESSon 63-73-0924Swrxjbl mass conc HNO ID: [id number] Author: Farheen Cronin Service: (none) Author Type: Physician Type: Progress Notes Filed: 10/17/2017 12:34 AM Note Text: [facility] Radiation Oncology Department RADIATION ONCOLOGY - [...] / JULIETTE 10/16/20179:57 AM cc: Dr. Lawrence DowMercy Health Allen HospitalCNOVon 14-17-1385KCXFHvkpas Visit (RADTSA) JOSS WASHINGTON ([id number]) 1950 F Date Time Provider Department 10/14/17 10:15 AM FARHEEN CRONIN During your visit today, we recorded the following information about you: Blood pressure Weight 144/78 130.6 kg Dexter DeL eón RN, RN 10/14/2017 10:18 AM Signed Status: [...] Encounter Status:Closed by FARHEEN CRONIN MD on 10/14/17NoMercy Health Allen HospitalPROGRESSon 03-77-3021Eghvlju mass concHNO ID: [id number] Author: Farheen Cronin Service: (none) Author Type: [...] radiation treatment as planned. ? Farheen Cronin MD?NormalKettering Health TroyCNOVon 63-65-3686KBCC Office Visit (RADTSA) JOSS WASHINGTON ([id number]) 1950 F Date Time Provider Department 10/07/17 [...] Encounter Status:Closed by FARHEEN CRONIN MD on 10/07/17NoMercy Health Allen HospitalPROGRST. JOSEPH'S HOSPITAL HEALTH CENTERon 37-20-2966Kvgqfvv mass concHNO ID: [id number] Author: Farheen Cronin Service: (none) Author Type: [...] radiation treatment as planned. ? Farheen Cronin MD?NormalKettering Health TroyCNOVon 15-83-4157JBBS Office Visit (RADTSA) FELIXJOSS MIX ([id number]) 1950 F Date Time Provider Department 09/30/17 10:15 AM FARHEEN CRONIN During your visit today, we recorded the following information about you: Blood pressure Weight 128/86 130.6 kg Anatoliy Graves, ELEVATOR CONSTRUCTOR HELPER, CLARA 09/30/2017 10:27 AM Signed Status: Post-menopausal. Farheen [...] Encounter Status:Closed by FARHEEN CRONIN MD on 09/30/17NormalCOhioHealth Arthur G.H. Bing, MD, Cancer CenterPROGRESSon 61-21-7577Bdqctng mass concHNO ID: [id number] Author: Farheen Cronin Service: (none) Author Type: [...] radiation treatment as planned. ? Farheen Cronin MD?NormalKettering Health TroyCNOVon 29-81-3007XPKT Office Visit (RADTSA) JOSS WASHINGTON ([id number]) 1950 F Date Time Provider Department 09/22/17 [...] Encounter Status:Closed by FARHEEN CRONIN MD on 09/22/17[facility] 19-43-0299Jxihqir mass concHNO ID: [id number] Author: Farheen Cronin Service: (none) Author Type: [...] EscaleraalCUniversity [facility]als [facility] and Differentialon 44-04-3939Wps Baso0.03 k/uLNormal0.00-0.10K[facility]tering Health TroyAbs Mono0.45 k/uLNormal0.00-0.86K[facility]tering Health TroyAbs Neut5.16 k/uLNormal1.45-7.50 [facility] TroyBasophils/100 WBC (Bld)0.4 %NormalKettering Health TroyEosinophils #/vol (Bld)0.23 10*3/uLNormal0.00-0.45[facility]tering Health TroyEosinophils/100 WBC (Bld)3.2 %NormalKettering Health Troy Erythrocyte distribution width Ratio (RBC)15.0 %Stgsxx36.5-15.0[facility] TroyHematocrit Volume Fraction (Bld)39.1 %Arhoki68.0-46.0[facility] TroyHemoglobin mass conc (Bld)13.0 g/iUJskyka46.5-15.5CMemorial Health System Selby General HospitalvelandLymphocytes #/vol (Bld)1.40 10*3/uLNormal1.00-4.00[facility] TroyLymphocytes/100 WBC (Bld)19.3 %NormalMercy Health St. Charles HospitalH Entitic mass (RBC)30.6 tEYisykv48.0-34.0[facility] Charles HospitalHC mass conc (RBC)33.2 g/gFMsjpef92.5-36.0[facility] Charles HospitalV Entitic volume (RBC) 92.0 kENlihcz91.0-100.0[facility] TroyMonocytes/100 WBC (Bld)6.2 % NormalKettering Health TroyNeutrophils/100 WBC (Bld)70.9 %NormalKettering Health TroyPlatelet mean volume Entitic volume (Bld)9.5 fLNormal9.0-12.7 [facility] TroyPlatelets #/vol (Bld)272 10*3/qBJwbxbg988-925Xzzzybjvm Clinic ClevelandRBC #/vol (Bld)4.25 10*6/uLNormal3.90-5.20[facility]testant HospitalvelandWBC #/vol (Bld)7.27 10*3/uLNormal3.70-11.00[facility] CNOVon 17-30-2813VDLVQhbcau Visit (RADTSA) JOSS WASHINGTON ([id number]) 1950 F Date Time Provider Department 09/18/17 [...] De León RN Referring Provider: FARHEEN CRONIN [[id number]] Allergies As of Date: 09/18/2017 (No Known [...] Notes: >> Dexter Sykes) CLARA De León [facility] Sep 18, 2017 10:01 AM Status: [...] Encounter Status:Closed by DEXTER DE LEÓN on 09/18/17[facility] 19-61-1544XFQRRfmbtn Visit (RADTSA) JOSS WASHINGTON ([id number]) 1950 F Date Time Provider Department 09/16/17 [...] Encounter Status:Closed by FARHEEN CRONIN MD on 09/16/17[facility] 58-26-1081Aroyxtr mass concHNO ID: [id number] Author: Farheen Cronin Service: (none) Author Type: [...] radiation treatment as planned. ? Farheen Cronin MDNoKettering Health Behavioral Medical Center 09-09-2017 Protein mass concHNO ID: [id number] Author: Jem Santana Service: (none) Author Type: [...] discomfort progresses requiring intervention. Signed by: Jose NixonPremier HealthAugustus 90-29-8320DQYV Office Visit (RADTSA) JOSS WASHINGTON ([id number]) 1950 F Date Time Provider Department 09/08/17 [...] Encounter Status:Closed by JEM SANTANA MD on 6/21/18[facility]C and Differentialon 06-86-9107Vul Baso0.03 k/uLNormal<0.11[facility] on above:Performed By: #### CBCDIF ####[place] [address]CJess[address], [place] [phone] Mono0.45 k/uL Normal<0.87[facility] on above:Performed By: #### CBCDIF ####[place] [address]CJess[address], [place] [phone] Neut3.74 k/uLNormal1.45-7.50[facility] on above:Performed By: #### CBCDIF ####[place] [address] [address]Or[address], [place] [phone]/100 WBC (Bld)0.5 %NormalMemorial Hospital on above:Performed By: #### CBCDIF ####[place] [address], [place] [phone]=6.68 NormalMemorial Hospital on above:Result Comment: Preliminary result. Interpret with caution. Final results may vary. Results requested and read back by: /09/04/1710/15/1026/OSITO CASTELLONPerformed By: #### CBCDIF ####[place] [address], [place] [phone] #/vol (Bld)0.23 10*3/uLNormal<0.46[facility] on above: Performed By: #### CBCDIF ####[place] [address], [place] [phone]/100 WBC (Bld)3.7 %Normal [facility] on above:Performed By: #### CBCDIF ####[place] [address] [place] [phone] distribution width Ratio (RBC)15.5 %High11.5-15.0[facility] on above:Performed By: #### CBCDIF ####[place] [phone] Volume Fraction (Bld)37.1 %Tbocqe05.0-46.0[facility] on above: Performed By: #### CBCDIF ####[place] [phone] mass conc (Bld)12.2 g/dLNormal 11.5-15.5[facility] on above:Performed By: #### CBCDIF ####[place] [phone] #/vol (Bld)1.78 10*3/uLNormal1.00-4.00[facility] on above:Performed By: #### CBCDIF ####[place] [phone]/100 WBC (Bld)28.6 %NormalMemorial Hospital on above:Performed By: #### CBCDIF ####[place] [phone] Entitic mass (RBC)30.3 cTHivwyb81.0-34.0[facility] on above:Performed By: #### CBCDIF ####[place] [phone] mass conc (RBC) 32.9 g/iQXfrpcl04.5-36.0[facility] on above:Performed By: #### CBCDIF ####[place] [phone] Entitic volume (RBC)92.1 uPEfhbzc38.0-100.0[facility] on above:Performed By: #### CBCDIF ####[place] [address] [address] AveCMichele [place] [phone]/100 WBC (Bld)7.2 %NormalFayette County Memorial Hospitalment on above:Performed By: #### CBCDIF ####[place] [address] [address] AvAnthony V[address] [phone]/100 WBC (Bld)60.0 %NormalKettering Health Troy Comment on above:Performed By: #### CBCDIF ####[address] AvAnthony Ville [phone] mean volume Entitic volume (Bld)9.3 fLNormal9.0-12.7[facility] on above:Performed By: #### CBCDIF ####[place] [address] [address] Av[address] [phone] #/vol (Bld)285 10*3/mRHrryzb686-538LpffizmumMemorial Hospital on above:Performed By: #### CBCDIF ####[place] [address] [address] Av[address] [place] [phone] #/vol (Bld)4.03 10*6/uLNormal3.90-5.20[facility] on above:Performed By: #### CBCDIF ####[address] AvAnthony Ville [phone] #/vol (Bld)6.19 10*3/uLNormal3.70-11.00[facility] on above:Performed By: #### CBCDIF ####[place] [address] [address] Av[address] [phone] 09-04-2017 CNOVOffice Visit (RADTSA) JOSS WASHINGTON ([id number]) 1950 F Date Time Provider Department 09/04/17 [...] De León RN Referring Provider: FARHEEN CRONIN [[id number]] Allergies As of Date: 09/04/2017 (No Known [...] Notes: >> Dexter De León RN [facility] Sep 04, 2017 12:44 PM Status: [...] Encounter Status:Closed by DEXTER DE LEÓN on 09/04/17[facility] 71-91-5243SFCPGmvmuu Visit (RADTSA) JOSS WASHINGTON ([id number]) 1950 F Date Time Provider Department 09/02/17 [...] Encounter Status:Closed by FARHEEN CRONIN MD on 09/02/17[facility] 43-23-8889Nzyoyeb mass concHNO ID: [id number] Author: Farheen Cronin Service: (none) Author Type: [...] Continue radiation treatment as planned. Farheen Cronin MDZanesville City Hospital 23-04-5396UZHFHigmmk Visit (RADTSA) JOSS WASHINGTON ([id number]) 1950 F Date Time Provider Department 08/27/17 [...] Jem Santana MD Referring Provider: JEM SANTANA [[id number]] Allergies As of Date: 08/27/2017 (No Known [...] Encounter Status:Closed by JEM SANTANA MD on 09/12/17[facility] 58-42-7409Qfygyad mass concHNO ID: [id number] Author: Jem Santana Service: (none) Author Type: [...] the course of treatment. Signed by: Jose NixonPeoples Hospital CT NON-RADIOLOGY -NBNRon 18-39-0982YRXY CT NON-RADIOLOGY -[facility] - CT Images - Obtained Outside of Imaging [place] [id number]_IDCSIACNNormalKettering Health TroyCNCNPATEDon 08-20-2017 CNCNPATEDEducation (RADTSA) JOSS WASHINGTON ([id number]) 1950 F Date Time Provider Department 08/20/17 ANATOLIY HA LPN Reason for Visit: Patient Education [91] Visit Notes: >> Anatoliy Ha RN FriAugust 20, 2017 3:46 PM Status: Signed Radiation Therapy - Patient Education Note PATIENT NAME: Joss [place] PATIENT August 20, 2017 [facility] FACILITY/LOCATION: [facility] READINESS TO LEARN Cognitive Ability: Alert [...] need for social work, van service, and paper conservator. Was approved? No Signed by: Anatoliy Ha [...] mouth. Encounter Status:Closed by ANATOLIY HA on 08/20/17[facility] 40-21-5080XBGPDlkkhm Visit (RADTSA) JOSS WASHINGTON ([id number]) 1950 F Date Time Provider Department 08/20/17 [...] her . 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 COMPLETE REVIEW [...] Farheen Cronin MD cc: Lawrence Rai MD [address] [place] [address] Katherine Downs MD [facility] [address] [place] [address] Dr. Berman This note was dictated with Radhaon Naturally Speaking and may contain some grammatical errors due to limitations of the software. Referring Provider: KATHERINE DOWNS [[id number]] Allergies As of Date: 08/20/2017 (No Known [...] Encounter Status:Closed by FARHEEN CRONIN MD on 08/20/17[facility] 43-34-5344Jdbgfmv mass concHNO ID: [id number] Author: Farheen Cronin Service: (none) Author Type: [...] her . 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 COMPLETE REVIEW [...] Farheen Cronin MD cc: Lawrence Rai MD [address] [place] [address] Katherine Downs MD [facility] [address] [place] [facility] Dr. 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 / NRS 08/20/20173:59 [facility] HospitalAbbey anderson concHNO ID: [id number] Author: Farheen Cronin Service: (none) Author Type: Physician Type: Progress Notes Filed: 08/27/2017 12:34 AM Note Text: JOSS [place] [id number] 08/20/2017 [facility] Department of Radiation Oncology Treatment Planning [...] DVH. Electronically Signed Farheen Cronin M.D. 08/26/20171:02 PMNSamaritan HospitalCNOVSPon 62-93-4982JNPZKYJmifr (SP) Office (HEMACL) JOSS WASHINGTON ([id number]) 1950 F Date Time Provider Department 08/14/17 [...] Katherine Downs MD Referring Provider: GEREMIAS BERMAN [[id number]] Allergies As of Date: 08/14/2017 (No Known Allergies) Date Reviewed: 08/14/2017 Reviewed by: Iesha Luis - Fully Assessed Primary Visit Diagnosis:Ductal carcinoma in situ (DCIS) of right breast [D05.11] Order(s):RAD/ONC CONSULT [9037] Order #: [id number]: 1 Prescriptions as of 08/14/2017 Sig: VENTOLIN [...] Encounter Status:Closed by KATHERINE DOWNS MD on 08/14/17[facility] 76-39-8978Xbglljt mass concHNO ID: [id number] Author: Katherine Downs Service: (none) Author Type: [...] is needed. - RAD/ONC CONSULT Katherine Downs MDBucyrus Community HospitalUS-US GUIDE LOCAL BREAST RT IMPORTon 26-58-9173RJ-US GUIDE LOCAL BREAST RT IMPORTImages were obtained outside of [facility] [id number]_IDCSIACNNSamaritan HospitalMAMM OUTSIDE DICOM IMPORT -NBNRon 75-80-7617YAFY OUTSIDE DICOM IMPORT -NBNRImages were obtained outside of [facility] [id number]_IDCSIACNNSamaritan Hospital Encounters Encounter DateEncounter TypeCare ProviderFacilityStart: 01-05-2025 End: 62-46-1486ncsuofxxpqLNRNSPJWright-Patterson Medical Centertart: 08-06-2024 End: 12-63-2480kptsvghbeeGETELBarney Children's Medical Centertart: 05-07-2024 End: 14-70-5961rqhuszmmdoZELUBBarney Children's Medical Centertart: 03-16-2022 End: 96-72-1886xisremuwfoFU LAWRENCE HOYFacility:L1Tnrrk: 98-10-9772sodqhtltycNC LAWRENCE HOYFacility:T5Pkddm: 02-08-2022 End: 45-78-6639lquhgcvljqSX LAWRENCE HOYFacility:L0Zmmpb: 11-30-2021 End: 76-52-3884xmxgrghntxVK LAWRENCE HOYFacility:S1Muvdt: 06-11-2018 End: 48-70-0328Zqhjucc encounter procedureFARHEEN ARVIZUGood Samaritan HospitalStart: 02-12-2018 End: 92-37-5863Tnvzdyq encounter procedureFARHEEN ARVIZUGood Samaritan HospitalStart: 12-04-2017 End: 96-88-4397Ricudhg encounter procedureHOLJACOB (MANAGER ADULT) [facility]: 10-30-2017 End: 87-92-1567Ugitteb encounter procedureFARHEEN ARVIZUSelect [facility]: 10-15-2017 End: 80-68-5108Kfdplxa encounter procedureKATHERINE [facility]: 10-14-2017 End: 84-67-7264Wxqeywh encounter procedureFARHEEN BARBOSAKettering Health [facility]: 10-13-2017 End: 26-92-5242Vksjeru encounter procedureJAORIANA [facility]: 10-09-2017 End: 29-57-5292Lhzlnkw encounter procedureJAORIANA [facility]: 10-08-2017 End: 91-34-1499Vpwrjii encounter procedureJAORIANA [facility]: 10-07-2017 End: 88-65-6836Blfwnid encounter procedureFARHEEN ARVIZUSelect Medical [facility]ty [facility]: 10-06-2017 End: 41-20-6361Yhtpiuj encounter procedureJAORIANA [facility]: 10-03-2017 End: 34-51-6910Mhdagno encounter procedureJAORIANA [facility]: 10-02-2017 End: 97-07-7494Lyvtvhg encounter procedureJAORIANA [facility]: 09-30-2017 End: 14-78-5170Papvmmt encounter procedureFARHEEN ARVIZUSelect Medical [facility]: 09-29-2017 End: 87-07-0552Gwcoabr encounter procedureJAORIANA [facility]: 09-26-2017 End: 73-32-7202Dyiklpk encounter procedureJAORIANA [facility]: 09-25-2017 End: 60-49-2275Tsqxskm encounter procedureJAORIANA [facility]: 09-24-2017 End: 34-92-2736Qvuhzgb encounter procedureJAORIANA [facility]: 09-23-2017 End: 23-92-4613Tjwxpuv encounter procedureJAORIANA [facility]: 09-22-2017 End: 20-13-6825Cplsxhz encounter procedureFARHEEN AVRIZUSelect Medical Specialty [facility]: 09-19-2017 End: 41-98-9452Tlvxrzh encounter procedureKATHERINE [facility] HospitalStfruita: 09-18-2017 End: 07-64-6287Imudgzy encounter procedureKHKHANHAdrián Celeste LUIS MANUELROMINAGood Samaritan HospitalStfruita: 09-17-2017 End: 79-18-7983Iykscab encounter procedureKATHERINE ETIENNEWooster Community Hospital: 09-16-2017 End: 87-79-3744Idnhvoo encounter procedureKHKHANHAdrián Celeste LUHLETACincinnati Shriners HospitalStfruita: 09-15-2017 End: 04-07-7026Fllfkmb encounter procedureJAORIANA [facility]: 09-12-2017 End: 72-16-0615Nsssqav encounter procedureJAORIANA [facility]: 09-11-2017 End: 93-15-1866Wppzzrc encounter procedureKATHERINE [facility]: 09-10-2017 End: 89-60-9447Nfsagqt encounter procedureKATHERINE [facility]: 09-09-2017 End: 03-86-4910Rijczry encounter procedureJAORIANA [facility]: 09-08-2017 End: 49-39-6723Hadiprk encounter procedureSACAROLINE [facility] Start: 09-05-2017 End: 02-31-2570Ofrwmhu encounter procedureJAORIANA [facility] HospitalStfruita: 09-04-2017 End: 06-55-7143Jwaoxla encounter procedureKHKHANHAdrián Celeste LUIS MANUELROMINAGood Samaritan HospitalStfruita: 09-03-2017 End: 02-82-9420Lpoxzgl encounter procedureKATHERINE [facility] HospitalStfruita: 09-02-2017 End: 00-86-0719Xksbswp encounter procedureKHMELODY Celeste LUHGood Samaritan HospitalStfruita: 09-01-2017 End: 33-46-7236Shkqlzc encounter procedureJAORIANA [facility]: 08-29-2017 End: 02-46-9880Zsiipcu encounter procedureJAORIANA [facility]: 08-28-2017 End: 63-43-1701Rntxbal encounter procedureJAORIANA [facility]: 08-27-2017 End: 54-55-7015Xgslsut encounter procedureSACAROLINE [facility] Start: 08-20-2017 End: 08-74-1555Bqgwavu encounter procedureFARHEEN GalvanACMC Healthcare SystemStart: 08-14-2017 End: 45-32-4071Lmrzzcx encounter procedureKATHERINE BradfordACMC Healthcare System Payers DatePayer CategoryPayerPolicy [id number] 1959Medicare [id number] [id number] Progress note 08-06-2024 Note Date & RwwaEvzmTsuxgfcl94-97-4056 [facility] Reason for [...] Holter monitor 03/19/2024 Review (more content not included)...[facility] Progress note 05-07-2024 Note Date & TlfoAsrjZdqhvnpo04-82-7299 NoteB[facility] Note Reason for [...] has no past medical history of Stroke ([facility] Surgical History She has a past surgical [...] Recent TIA, no ische (more content not included)...[facility] Summary Purpose Family History No Family History Records FoundNo Family History Records FoundNo Family History Records FoundNo Family History Records Found Advance Directives No Advanced Directives Records FoundNo Advanced Directives Records FoundNo Advanced Directives Records FoundNo Advanced Directives Records Found Additional Source Comments INFORMATION SOURCE (unrecogn ized section and content) DATE CREATED AUTHOR 06/15/2018 [facility] DATE CREATED AUTHOR AUTHOR'S ORGANIZ ATION 07/26/2019 [facility] DATE CREATED AUTHOR AUTHOR'S ORGANIZ ATION 03/22/2022 [facility] DATE CREATED AUTHOR AUTHOR'S ORGANIZ ATION 01/10/2025 [facility] FOR RECORDS PERTAINING TO PATIENTS [...] BE BASED ON THE PRIMARY CLINICAL RECORDS. [facility]. provides no warranty or guarantee of the accuracy or completeness of information in this document.
--- OUTSIDE RECORDS SUMMARY | 2025-02-16 07:03 | XMS_ITS | Clinical Summary ---
Author Organization [facility] Address [address] [place], [place] [address] Care Team Providers Care Asphalt Heater Operator Name Role Phone Paolo Rai MD Primary Care Provider [phone] Allergies No known active allergies Medications MedicationSigDispense [...] number is lower riskNot on file03/07/2020Data from: https://www.neighborhoodatlas.medicine.[email or web address].edu/. Last address used for calculationNot on file03/07/2020CommentsNoSex and Gender Information ValueDate RecordedSex Assigned at BirthNot on fileLegal RxmYafmem06/16/2018 12:59 PM EDTGender IdentityNot on fileSexual OrientationNot on file Last Filed Vital Signs Vital SignReadingTime TakenCommentsBlood Sbjvnent430/7406/11/2018 10:34 AM EDT Tuvpr350906/11/2018 10:34 AM MVDTrbakupevzh63.8 ??C (98.3 ??F)12/04/2017 10:47 AM EDTRespiratory Zwac986106/11/2018 10:34 AM EDTOxygen Intypikxpk57%06/11/2018 10:34 AM EDTInhaled Oxygen Concentration--Bunbvo858 kg (291 lb)06/11/2018 10:34 AM EDT Toucdz216 cm (5' 2.99 )12/04/2017 10:36 AM EDTBody Mass Index51.56012/04/2017 10:36 AM EDT Plan of Treatment Health MaintenanceDue DateLast DoneCommentsAnxiety Eyuwjxpdc61/26/1970Depression Xbwvwslex45/26/1970Hepatitis C Eunzohakw56/26/1970DTaP,Tdap,Td Vaccine (1 - Tdap)1970Mammogram Lzijghyzw34/26/1992CT Tjvpwxxyemvn86/26/1997Cologuard (FIT-DNA)05/26/19967939Ydallzcrour81/26/1997Colorectal Cancer Pvfmoxorh23/26/1997 Diabetes Zrihfoovi01/26/1997Fecal Occult Blood1996Lipid Screening 05/26/19961904Ctnlhbaitspfw57/26/1997Shingrix Vaccine (1 of 2)2001Bone Density Ngxrtvsyv09/26/2017Pneumococcal Vaccine: 50+ (2 of 2 - PCV), 09/06/2016Advance Directive Meuuwkyygw17/01/2025ovid-19 Vaccine (1 - 2024- season)2024Influenza Vaccine (#1)5006/26/2017, 01/14/2016RSV Vaccine (1 - 1-dose 75+ series)2026 [place] [address] Care Teams Team MemberRelationshipSpecialtyStart Date Paolo Rai MD PCP - GeneralFamily Medicine07/14/17
--- OUTSIDE RECORDS SUMMARY | 2025-02-16 07:03 | XMS_ITS ---
Author Organization [facility] Address [address] [place], [place] [address] Care Team Providers Care Armature And Rotor Winder Name Role Phone Paolo Rai MD Primary Care Provider [phone] Active Problems ProblemNoted DateDiagnosed DateDuctal carcinoma in [...] Dr. Harry Peterson Other Providers: Emily Block APRN.RIGGING FOREMAN Treatment Summary Diagnosis Cancer Type/Histology Subtype: Right [...] Test How Often Oncology Team Mammogram Annually PLANT CYTOLOGIST or PCP Pap/pelvic exam As indicated by [...] Resources you may be interested in: [email or web address] Manager Construction Preparole Counseling Aide Art Therapy Viviane Wise (Breast Cancer Support Group) meets the friday of every month, from 4 PMto 5 PM, at [address] [place] [address] Prepared by: Emily Block APRN.RIGGING FOREMAN Delivered on: December 04, 2017 - This [...]
[2025-02-16 08:22] LABS: Thyroid Stimulating Hormone 3.792 uIU/mL (0.358-3.740)
[2025-02-17 04:07] LABS: FSH 26.5 mIU/mL (25.8-134.8)
[2025-02-18 06:08] LABS: IGF-1 144 ng/mL (48-191)
== END 2025-02-16 06:59 | disposition home or self-care (01) ==
LOC: LAB 06:59
PROVIDERS: PCP Family Medicine; Visit Provider Neurological Surgery
DX: G93.89 Other specified disorders of brain (principal)
CPT/HCPCS: 36415; 82533; 82670; 82947; 83001; 83002; 84146; 84305; 84439; 84443

== ENCOUNTER 2025-03-01 08:26 | Outpatient (REF) | payer MEDICARE, OTHER, SELFPAY ==
--- OUTSIDE RECORDS SUMMARY | 2025-03-02 08:30 | XMS_ITS | CCD ---
Author Organization [facility] Care Team Providers Care Dinkey Dispatcher Name Role Phone KATHERINE DOWNS Attending Unavailable [...] CRONIN, KHALID R Referring Unavailable LISA WILLAMS ([facility]) Attending Unavailabl e CRONIN, KHALID [...] [Intraductal carcinoma in situ of right breast]Onset: 23-20-7761SkdkkesGpfulhvi mellitus without complication (1 source)Type 2 diabetes mellitus without complications; Translations: [TYPE 2 DM WITHOUT COMPLICATIONS]Onset: 77-38-0674UgjycuyRhlkzvqsf of lipid metabolism (2 sources)Hyperlipidemia, unspecified; Translations: [Hyperlipidemia, unspecified]Onset: 74-21-8027LkwidstDvvnixnut hypertension (3 sources)Essential (primary) hypertension; Translations: [ESSENTIAL PRIMARY HYPERTENSION]Onset: 13-62-4705NrbqlyxRqxhx connective tissue disease (4 sources)Impingement syndrome of left shoulder; Translations: [IMPINGEMENT SYNDROME LEFT SHOULDER]Onset: 52-83-2470PvorovptNgbnl nutritional; endocrine; and metabolic disorders (1 source)Morbid (severe) obesity due to excess calories; Translations: [MORBID SEVERE OBES D/T EXCESS ARIAS]Onset: 48-16-2765TrpfnxnZihvjsnb codes; unclassified (1 source)Family history of malignant neoplasm of breast; Translations: [FAMILY HX MALIG NEOPLASM OF BREAST]Onset: 01-80-8247GnyoxpvxEeyjugzy codes; unclassified (1 source)Family history of malignant neoplasm of trachea, bronchus and lung; Translations: [FAM HX MALIG NEOPLSM TRACH BRON LNG]Onset: 53-06-1398Sreqwzti Residual codes; unclassified (1 source)Family history of malignant neoplasm of other organs or systems; Translations: [FAM HX MALIG NEOPLASM OTH ORGN/SYS]Onset: 84-11-4376Wdqendnp Transient cerebral ischemia (2 sources)Transient cerebral ischemic attack, unspecified; Translations: [Transient cerebral ischemic attack,unspecified]Onset: 57-86-3261Nsxolai Past or Other Problems Problem ClassificationProblemDateDocumented DateEpisodic/ChronicDeficiency and other anemia (1 source)Anemia, unspecified; Translations: [ANEMIA UNSPECIFIED]Onset: 88-92-6880DfwawrkwXarotcft mellitus without complication (1 source)Other abnormal glucose; Translations: [OTHER ABNORMAL GLUCOSE]Onset: 77-57-3114CjhfpkpsWzqar nutritional; endocrine; and metabolic disorders (4 sources)Overweight; Translations: [OVERWEIGHT]Onset: 20-12-3722Asvwzagf Results Test NameValueInterpretationReference JomplHgynhxab68pa 83-90-055181Swaq: John Yin MD Sent: 08/29/2024 3:06 PM EDT To: Gerda Coppola MA Subject: RE: Scan Labs are overall good. Ask her if her blood pressure is better after adding Aldactone/spironolactone Advised patient of Dr. Yin's findings. Patient states her blood pressure is doing great and she feels much better.[facility] Office Visiton 73-81-8822Sdamsw-up [id number] Joss aWshington 1950 F Date Provider Department Center 08/06/2024 [id number] YIN [facility] Family History Problem Relation Age of Onset Hypertension Mother Stroke Mother Hyperlipidemia Mother Hypertension Father Coronary artery disease Father Hyperlipidemia Father Cancer Father Family Status - Relation Status Age at Mother Father Level of Service:87203 NC OFFICE/OUTPATIENT ESTABLISHED MOD [facility] 30 MIN Reason for Visit and Comments: Hyperlipidemia [182] - Had lipid in May 2024. Hypertension [003937] - She brought BP log with her. Shortness of Breath [128586] - She attributes her MORENO to her weight. Says it's hard for her to walk a lot due to knee pain. Palpitations [000516] - Hasn't had palpitations recently. Transient Ischemic Attack [921528] - Had bubble study in May 2024. She wants to know if she can stop Plavix due to TIA being ruled out.[facility] 35-32-3489Xaesio-up [id number] Joss [place] 1950 F Date Provider Department Center 05/07/2024 [id number] YIN [facility] Family History Problem Relation Age of Onset Hypertension Mother Stroke Mother Hyperlipidemia Mother Hypertension Father Coronary artery disease Father Hyperlipidemia Father Cancer Father Family Status - Relation Status Age at Mother Father Level of Service:57957 NC OFFICE/OUTPATIENT NEW MODERATE MDM 45 MINUTES Reason for Visit and Comments: Chest Pain [242597] - Patient describes it as chest discomfort . Says she was told 40+ years ago that she had mitral valve prolapse. Echo was done with recent admission. Hypertension [747223] - She was admitted to [facility] in Feb 2024 for TIA and hypertension. Hyperlipidemia [182] Shortness of Breath [] - C/o MORENO. Palpitations [] - She wore 7 day Holter after hospital admission. She is currently wearing a 30 day event monitor.[facility] HospitalXR SHOULDER LT 2V or >on 29-65-0810TW SHOULDER LT 2V or >EXAM: Shoulder. HISTORY: [...] Electronically authenticated by: LIBIA GIBBS Date: 2022-03-17 13:[address] [place], [place] [address]MG MAMM ABHAY DIAG W CADon 85-98-7555RP MAMM ABHAY DIAG W CAD Patient: JOSS WASHINGTON Exam Date: 02/08/2022 : 1950 Gender:F Ordering : DR LAWRENCE RAI . Admission #: [id number] Family : Order #: [id number] CLICK HERE TO VIEW EXAM RADIOLOGY REPORT [...] cancer at age 69. LOCATION: [facility] BREAST COMPOSITION: Scattered areas fibroglandular density. [...] Brandon Lima M.D. on 02/08/2022 at 08:46NormalThe [facility] HospitalT4, T3U, FTI LABCORPon 60-21-5915Etdt Thyroxine Index1.6Uljswq2.2-4.9The [facility] Hospitalment on above:Performed By: #### THYLC #### [facility] [address] [place] [address] Dr. Sheldon CorderoT3 Bwjbfq51 %Kensct00-01Jhm [facility] HospitalComosf [facility] on above: Performed By: #### THYLC #### [facility] [address] [place] [address] Dr. Sheldon CorderoT4 [Mass/Vol]6.4 ug/dLNormal4.5-12.0The [facility] on above:Performed By: #### THYLC #### [facility] [address] [place] [address] Dr. Sheldon McdowellC AUTO DIFFon 97-86-7406LHYT #0.1 103/ulNormal0.0-0.1The [facility] on above:Performed By: #### CBC #### [facility] [address] [address] [address] Sheldon CordreoBasophils/100 WBC (Bld)0.8 %Normal0.2-2.0[facility] Comment on above:Performed By: #### CBC #### [facility] [address] [address] [address] Sheldon Velasquez #0.3 103/ulNormal0.0-0.7The [facility] HospitalComment on above: Performed By: #### CBC #### [facility] [address] [address] [address] Sheldon Fortuneosinophils/100 WBC (Bld)3.8 %Normal0.9-7.0[facility] Comment on above:Performed By: #### CBC #### [facility] [address] [place] [address] Dr. Sheldon Fortunerythrocyte distribution width (RBC) [Ratio]14.6 %Bzptdq42.0-15.0 [facility] HospitalComment on above:Performed By: #### CBC #### [facility] [address] [place] [address] Dr. Sheldon CorderoHematocrit (Bld) [Volume fraction]39.3 %Abdnmf96.0-48.0[facility] HospitalComment on above:Performed By: #### CBC #### [facility] [address] [place] [address] Dr. Sheldon CorderoHemoglobin (Bld) [Mass/Vol]12.4 g/kEZrweim15.0-16.0[facility] HospitalComment on above:Performed By: #### CBC #### [facility] [address] [address] [address] Sheldon Augustin #0.08 10e3/ulCritically high0.00-0.03[facility] Comment on above:Performed By: #### CBC #### [facility] [address] [place] [address] Dr. Sheldon Augustin %1.1 %Critically high0.0-0.5The [facility] HospitalComment on above:Performed By: #### CBC #### [facility] [address] [address] [address] Sheldon Schulz #1.8 103/ulNormal1.2-3.8The [facility] on above:Performed By: #### CBC #### [facility] [address] [address] [address] Sheldon Leunghocytes/100 WBC (Bld)25.1 %Uepvsj05.5-60.0The [facility] HospitalComment on above:Performed By: #### CBC #### [facility] [address] [place] [address] Dr. Sheldon Griffin DIFF REQNONormalThe [facility] HospitalComment on above: Performed By: #### CBC #### [facility] [address] [place] [address] Dr. Sheldon Richardson (RBC) [Entitic mass]29.6 frKqzojw84.7-34.0The [facility] HospitalComment on above:Performed By: #### CBC #### [facility] [address] [place] [address] Dr. Sheldon Brown (RBC) [Mass/Vol]31.6 g/eLEgvdvm11.9-35.2The [facility] on above:Performed By: #### CBC #### [facility] [address] [place] [address] Dr. Sheldon Brown (RBC) [Entitic vol]93.8 aLEdixrj57.0-99.0The [facility] HospitalComment on above:Performed By: #### CBC #### [facility] [address] [place] [address] Dr. Sheldon Xiong #0.4 103/ulNormal0.3-0.8The [facility] on above:Performed By: #### CBC #### [facility] [address] [place] [address] Dr. Sheldon Laneocytes/100 WBC (Bld)5.8 %Normal1.7-12.0The [facility] Comment on above:Performed By: #### CBC #### [facility] [address] [place] [address] Dr. Sheldon Lorenz #4.6 103/ulNormal1.4-6.5The [facility] HospitalComment on above:Performed By: #### CBC #### [facility] [address] [place] [address] Dr. Sheldon Oropezautrophils/100 WBC (Bld)63.4 %Arymnb54.0-75.0The [facility] HospitalComment on above:Performed By: #### CBC #### [facility] [address] [place] [address] Dr. Sheldon Hernandez mean volume (Bld) [Entitic vol]8.9 fLCritically low 9.5-13.5The [facility] HospitalComment on above:Performed By: #### CBC #### [facility] [address] [place] [address] Dr. Sheldon CorderoPLT277 103/riRwnlsb800-876Bqy [facility] HospitalComment on above: Performed By: #### CBC #### [facility] [address] [place] [address] Dr. Sheldon CorderoRBC4.19 106/ulCritically low4.20-5.40The [facility] HospitalComment on above:Performed By: #### CBC #### [facility] [address] [place] [address] Dr. Sheldon CorderoWBC7.2 103/ulNormal4.0-11.0The [facility] HospitalComment on above: Performed By: #### CBC #### [facility] [address] [place] [address] Dr. Sheldon CorderoGLYCOHEMOGLOBIN A1Con 72-65-8283CEW RECOMMENDATIONSEE BELOWNormal The [facility] HospitalComment on above:Result Comment: ADA RECOMMENDED LIMIT 4.0 - 6.0 ADA THERAPEUTIC TARGET < 7.0 ACTION SUGGESTED > 7.0Performed By: #### A1C #### [facility] [address] [address] [address] Sheldon CorderoGlucose [Mass/Vol]128 mg/dLTrinity Health System West Campus on above:Performed By: #### A1C #### [facility] [address] [place] [address] Dr. Sheldon CorderoHbA1c (Bld) [Mass fraction]6.1 %Normal4.5-6.2The [facility] on above:Performed By: #### A1C #### [facility] [address] [place] [address] Dr. Sheldon Call 74-94-4284Iffj [Mass/Vol]58.0 ug/tIEndubd79.0-170.0The [facility] on above:Performed By: #### IRON #### [facility] [address] [place] [address] Dr. Sheldon BaxterID PROFILEon 01-32-0554GWFU-HDL RATIO NORMSDayton VA Medical CenterComosf healthcare [facility] on above:Result Comment: 3.3 - 4.4 LOW RISK 4.4 - 7.1 AVERAGE RISK 7.1 - 11.0 MODERATE RISK >11.0 HIGH RISKPerformed By: #### LIPID, TSH, CMP #### [facility] [address] [place] [address] Dr. Sheldon CorderoCholesterol [Mass/Vol]251 mg/dLCritically high<=200The [facility] on above:Performed By: #### LIPID, TSH, CMP #### [facility] [address] [place] [address] Dr. Sheldon Baumannesterol in HDL [Mass/Vol]70 mg/dLCritically fbkb83-16Imh [facility] on above:Performed By: #### LIPID, TSH, CMP #### [facility] [address] [place] [address] Dr. Sheldon Baumannesterol in LDL [Mass/Vol]161.4 mg/dLTrinity Health System West Campus on above:Performed By: #### LIPID, TSH, CMP #### [facility] [address] [address] [address] Sheldon CorderoCholesterol.total/Cholesterol in HDL [Mass ratio]3.6 {ratio} NormalThe [facility] HospitalComment on above:Performed By: #### LIPID, TSH, CMP #### [facility] [address] [place] [address] Dr. Sheldon Adams NORMAL> or = 60 mg/dl - LOW CARDIOVASCULAR RISK <40 mg/dl - HIGH CARDIOVASCULAR RISKMercy Health Anderson HospitalComment on above:Performed By: #### LIPID, TSH, CMP #### [facility] [address] [place] [address] Dr. Sheldon CorderoLDL CALC NORMALSEE BELOWNoAdams County Regional Medical CenterComment on above:Result Comment: <100 mg/dl OPTIMAL 100 - 129 mg/dl NEAR OR ABOVE OPTIMAL 130 - 159 mg/dl BORDERLINE HIGH 160 - 189 mg/dl HIGH >190 mg/dl VERY HIGH Performed By: #### LIPID, TSH, CMP #### [facility] [address] [place] [address] Dr. Sheldon CorderoTriglyceride [Mass/Vol]98 mg/dLNormal<=150The [facility] Comment on above:Performed By: #### LIPID, TSH, CMP #### [facility] [address] [place] [address] Dr. Sheldon CorderoVLDL CALC19.6 mg/dLNoAdams County Regional Medical CenterComment on above: Performed By: #### LIPID, TSH, CMP #### [facility] [address] [place] [address] Dr. Sheldon CorderoPROF 14(COMP METB)on 00-72-4033Jmnjnlw [Mass/Vol]3.4 g/dLNormal 3.4-5.0The [facility] HospitalComment on above:Performed By: #### LIPID, TSH, CMP #### [facility] [address] [place] [address] Dr. Sheldon CorderoAlbumin/Globulin [Mass ratio]0.9 {ratio}NormalThe [facility] HospitalComment on above:Performed By: #### LIPID, TSH, CMP #### [facility] [address] [address] [address] Sheldon GriggsP [Catalytic activity/Vol]107 U/SQhdwwd45-836Lbf [facility] HospitalComment on above:Performed By: #### LIPID, TSH, CMP #### [facility] [address] [address] [address] Sheldon GriggsT [Catalytic activity/Vol]17 U/IAcccat76-06Olv [facility] HospitalComment on above:Performed By: #### LIPID, TSH, CMP #### [facility] [address] [address] [address] Sheldon Bradleyon gap [Moles/Vol]10.9 mmol/LNormalThe [facility] Comment on above:Performed By: #### LIPID, TSH, CMP #### [facility] [address] [address] [address] Sheldon CorderoAST [Catalytic activity/Vol]11 U/LCritically gcd38-31Xac [facility] HospitalComment on above:Performed By: #### LIPID, TSH, CMP #### [facility] [address] [address] [address] Sheldon CorderoBilirubin [Mass/Vol]0.3 mg/dLNormal0.2-1.0The [facility] Comment on above:Performed By: #### LIPID, TSH, CMP #### [facility] [address] [address] [address] Sheldon CorderoCalcium [Mass/Vol]9.1 mg/dLNormal8.5-10.1The [facility] Comment on above:Performed By: #### LIPID, TSH, CMP #### [facility] [address] [address] [address] Sheldon CorderoChloride [Moles/Vol]106 mmol/KAxhijb88-694Tpi [facility] Comment on above:Performed By: #### LIPID, TSH, CMP #### [facility] [address] [address] [address] Sheldon CorderoCO2 [Moles/Vol]30.6 mmol/HXqeblp34.0-32.0The [facility] Comment on above:Performed By: #### LIPID, TSH, CMP #### [facility] [address] [address] [address] Sheldon CorderoCreatinine [Mass/Vol]0.93 mg/dLNormal0.55-1.02The [facility] HospitalComment on above:Performed By: #### LIPID, TSH, CMP #### [facility] [address] [address] [address] Sheldon FortuneGFR-AF JORDANIAN>60Normal>=60The [facility] HospitalComment on above:Performed By: #### LIPID, TSH, CMP #### [facility] [address] [address] [address] Sheldon FortuneGFR-NON AF JORDANIAN=60Normal>=60The [facility] HospitalComment on above:Performed By: #### LIPID, TSH, CMP #### [facility] [address] [address] [address] Sheldon CorderoGlobulin (S) [Mass/Vol]4.0 g/dLNormalThe [facility] HospitalComment on above:Performed By: #### LIPID, TSH, CMP #### [facility] [address] [address] [address] Sheldon CorderoGlucose [Mass/Vol]101 mg/bYJxkqnt05-234IghOhiohealth Dublin Methodist Hospital Comment on above:Performed By: #### LIPID, TSH, CMP #### [facility] [address] [address] [address] Sheldon CorderoPotassium [Moles/Vol]4.5 mmol/LNormal3.5-5.1The [facility] Comment on above:Performed By: #### LIPID, TSH, CMP #### [facility] [address] [address] [address] Sheldon CorderoProtein [Mass/Vol]7.4 g/dLNormal6.4-8.2The [facility] Comment on above:Performed By: #### LIPID, TSH, CMP #### [facility] [address] [address] [address] Sheldon CorderoSodium [Moles/Vol]143 mmol/LOfdwnw374-717Tbh [facility] Comment on above:Performed By: #### LIPID, TSH, CMP #### [facility] [address] [place] [address] Dr. Sheldon Moon nitrogen [Mass/Vol]18.0 mg/dLNormal7.0-18.0The [facility] HospitalComment on above:Performed By: #### LIPID, TSH, CMP #### [facility] [address] [place] [address] Dr. Sheldon Moon nitrogen/Creatinine [Mass ratio]19.4 mg/mgNormalThe [facility] HospitalComment on above:Performed By: #### LIPID, TSH, CMP #### [facility] [address] [place] [address] Dr. Sheldon Galvez 12-74-4948INJ9.774 uIU/mLNormal0.358-3.740The [facility] HospitalComment on above:Performed By: #### LIPID, TSH, CMP #### [facility] [address] [place] [address] Dr. Sheldon CorderoLactic Acidon 95-99-7197Rujkrmw [Mass/Vol]7.5 mg/dLNormal4.5-19.8 [facility] CenterComment on above:Performed By: #### [id number] #### [facility] [address], [place] [address]UDXIrw 50-78-6881SXWLEqydpi Visit (HILARIO) JOSS WASHINGTON ([id number]) 1950 F Date Time Provider Department 06/11/18 [...] M.D., FACRO ? cc: Lawrence Rai MD [address] [place] [address] ? Katherine Downs MD [facility]dn[facility] [address] [place] [address] ? Dr. Beramn ? This note was dictated with Jazmin Naturally Speaking and may contain some grammatical errors due to limitations of the software. Dexter De León RN, was present in the examination room throughout the encounter. 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 Author Type: [...] examination. ? Signed by: Farheen Cronin M.D., [facility] ? cc: Lawrence Rai MD [address] [place] [id number] ? Katherine Downs MD [facility] [address] [place] [address] ? Dr. Berman ? This note was dictated with Jazmin Naturally Speaking and may contain some grammatical errors due to limitations of the software. Dexter De León RN, was present in the examination room throughout the encounter.NormalParkview HealthCNOVon 15-68-1771RTDPLpkish Visit (RADTSA) JOSS WASHINGTON ([id number]) 1950 F Date Time Provider Department 02/12/18 [...] M.D., KAY ? cc: Lawrence Rai MD [facility] [place] [address] ? Katherine Downs MD [facility] [address] [place] [address] ? Dr. Berman ? This note was dictated with Radhaon Naturally Speaking and may contain some grammatical errors due to limitations of the software. Dexter De León RN, was present in the examination room throughout the encounter. Referring Provider: LAWRENCE RAI [[id number]] Allergies As of Date: 02/12/2018 (No Known [...] Encounter Status:Closed by FARHEEN CRONIN MD on 02/12/18[facility] 89-34-8754Drjfijx mass concHNO ID: [id number] Author: Farheen Cronin Service: (none) Author Type: [...] examination. ? Signed by: Farheen Cronin M.D., [facility] ? cc: Lawrence Rai MD [address] [place] [address] ? Katherine Downs MD [facility] [address] [place] [address] ? [address]. Berman ? This note was dictated with Jazmin Naturally Speaking and may contain some grammatical errors due to limitations of the software. Dexter De León RN, was present in the examination room throughout the encounter.[facility] Medical CenterPROESSon 63-84-1079Utfkkya mass conc HNO ID: [id number] Author: Lias Willams Service: (none) Author Type: Nurse Practitioner [...] Dr. Downs at this time. Lisa Willams APRN.[facility] Private HospitalCNOVbere 57-37-0424JFJV Office Visit (RADTSA) JOSS WASHINGTON ([id number]) 1950 F Date Time Provider Department 12/04/17 [...] FACRO ? cc: Lawrence Rai MD [address] [place] [id number] ? Katherine Downs MD [facility] [address] [place] [address] ? [address]. Berman ? This note was dictated with Dragon Naturally Speaking and may contain some grammatical errors due to limitations of the software. Anatoliy Ha MA was present in the examination room throughout the encounter. Referring Provider: FARHEEN CRONIN [[id number]] Allergies As of Date: 12/04/2017 (No Known [...] Encounter Status:Closed by FARHEEN CRONIN MD on 12/04/17[facility] Medical CenterCNOVSPon 80-33-5184XVKUACGtmfw () Office (HEMASA) JOSS WASHINGTON ([id number]) 1950 F Date Time Provider Department 12/04/17 [...] Dr. Downs at this time. Lisa Willams APRN.CONTRACT PROCESSOR Referring Provider: FARHEEN CRNOIN [[id number]] Allergies As of Date: 12/04/2017 (No Known [...] breast*INVALID FOR* Encounter Status:Closed by LISA WILLAMS CONTRACT PROCESSOR on 12/10/17[facility] 49-67-5884Alnhssy mass concHNO ID: [id number] Author: Farheen Cronin Service: (none) Author Type: [...] FACRO ? cc: Lawrence Rai MD [address] [place] [address] ? Katherine Downs MD [facility] [address] [place] [address] ? [address] Berman ? This note was dictated with Jazmin Naturally Speaking and may contain some grammatical errors due to limitations of the software. Anatoliy Ha MA was present in the examination room throughout the encounter.[facility] 96-88-6157MTRWRdrfkt Visit (RADTSA) JOSS WASHINGTON ([id number]) 1950 F Date Time Provider Department 10/30/17 [...] Cronin M.D., FACRO cc: Lawrence Rai MD [address] [place] [address] ? Katherine Downs MD [facility] [address] [place] [address] ? [address] Berman ? This note was dictated with Dragon Naturally Speaking and may contain some grammatical errors due to limitations of the software. Dexter De León RN was present in the examination room throughout the encounter. Referring Provider: FARHEEN CRONIN [[id number]] Allergies As of Date: 10/30/2017 (No Known [...] Encounter Status:Closed by FARHEEN CRONIN MD on 10/30/17NoKettering Health Behavioral Medical Centeron 89-26-3804Ryehuso mass concHNO ID: [id number] Author: Farheen Cronin Service: (none) Author Type: [...] follow-up examination. Signed by: Farheen Cronin M.D., [facility] cc: Lawrence Rai MD [address] [place] [address] ? Katherine Downs MD [facility] [address] [place] [address] ? [address]. Berman ? This note was dictated with Jazmin Naturally Speaking and may contain some grammatical errors due to limitations of the software. Dexter De León RN was present in the examination room throughout the encounter.NormalParkview HealthPROGRESSon 05-91-7637Emwvjwh mass conc HNO ID: [id number] Author: Farheen Cronin Service: (none) Author Type: Physician Type: Progress Notes Filed: 10/17/2017 12:34 AM Note Text: [facility] Radiation Oncology Department RADIATION ONCOLOGY - [...] / JULIETTE 10/16/20179:57 AM cc: Dr. Lawrence DowThe Surgical Hospital at SouthwoodsCNOVon 83-75-2918NMUIBhzxjf Visit (RADTSA) JOSS WASHINGTON ([id number]) 1950 F Date Time Provider Department 10/14/17 [...] Encounter Status:Closed by FARHEEN CRONIN MD on 10/14/17NoThe Surgical Hospital at SouthwoodsPROGRESSon 65-31-6531Uahzwor mass concHNO ID: [id number] Author: Farhene Cronin Service: (none) Author Type: Physician Type: [...] radiation treatment as planned. ? Farheen Cronin MD?NormalParkview HealthCNOVon 11-62-3890JKWD Office Visit (RADTSA) JOSS WASHINGTON ([id number]) 1950 F Date Time Provider Department 10/07/17 [...] Encounter Status:Closed by FARHEEN CRONIN MD on 10/07/17NoThe Surgical Hospital at SouthwoodsPROGRHUDSON VALLEY HOSPITALon 47-46-6087Eockgcz mass concHNO ID: [id number] Author: Farheen Cronin Service: (none) Author Type: [...] radiation treatment as planned. ? Farheen Cronin MD?NormalParkview HealthCNOVon 91-86-8617KXGC Office Visit (RADTSA) FELIXJOSS MIX ([id number]) 1950 F Date Time Provider Department 09/30/17 10:15 AM FARHEEN CRONIN During your visit today, we recorded the following information about you: Blood pressure Weight 128/86 130.6 kg Anatoliy Graves, MANUAL MACHINIST, CLARA 09/30/2017 10:27 AM Signed Status: Post-menopausal. [...] Encounter Status:Closed by FARHEEN CRONIN MD on 09/30/17NormalCDayton Osteopathic HospitalPROGRESSon 00-86-6420Tksvsfx mass concHNO ID: [id number] Author: Farheen Cronin Service: (none) Author Type: [...] radiation treatment as planned. ? Farheen Cronin MD?NormalParkview HealthCNOVon 77-99-9679ZOML Office Visit (RADTSA) JOSS WASHINGTON ([id number]) 1950 F Date Time Provider Department 09/22/17 [...] Encounter Status:Closed by FARHEEN CRONIN MD on 09/22/17[facility] 32-13-5130Ystnwdw mass concHNO ID: [id number] Author: Farheen Cronin Service: (none) Author Type: [...] Continue radiation treatment as planned. ? Jose EscaleraalCCleveland Clinic Lutheran Hospital and Differentialon 81-24-0109Hhw Baso0.03 k/uLNormal0.00-0.10Parkview HealthAbs Mono0.45 k/uLNormal0.00-0.86Parkview HealthAbs Neut5.16 k/uLNormal1.45-7.50 Parkview HealthBasophils/100 WBC (Bld)0.4 %NormalParkview HealthEosinophils #/vol (Bld)0.23 10*3/uLNormal0.00-0.45Parkview HealthEosinophils/100 WBC (Bld)3.2 %NormalParkview Health Erythrocyte distribution width Ratio (RBC)15.0 %Xxbgef77.5-15.0Parkview HealthHematocrit Volume Fraction (Bld)39.1 %Wqhjxm09.0-46.0Parkview HealthHemoglobin mass conc (Bld)13.0 g/mTDuavru56.5-15.5CSt. Charles HospitalvelandLymphocytes #/vol (Bld)1.40 10*3/uLNormal1.00-4.00Parkview HealthLymphocytes/100 WBC (Bld)19.3 %NormalPremier Health Miami Valley HospitalH Entitic mass (RBC)30.6 yAJvutuy55.0-34.0[facility] HospitalHC mass conc (RBC)33.2 g/dAXdfpna08.5-36.0[facility] HospitalV Entitic volume (RBC) 92.0 jLUtvogo36.0-100.0Parkview HealthMonocytes/100 WBC (Bld)6.2 % NormalParkview HealthNeutrophils/100 WBC (Bld)70.9 %NormalParkview HealthPlatelet mean volume Entitic volume (Bld)9.5 fLNormal9.0-12.7 Parkview HealthPlatelets #/vol (Bld)272 10*3/iPOtzehc599-703Zdjeqxmyt Clinic ClevelandRBC #/vol (Bld)4.25 10*6/uLNormal3.90-5.20[facility] Medical CentervelandWBC #/vol (Bld)7.27 10*3/uLNormal3.70-11.00[facility] CNOVon 14-39-5612KQINCjnrdm Visit (RADTSA) JOSS WASHINGTON ([id number]) 1950 F Date Time Provider Department 09/18/17 [...] De León RN Referring Provider: FARHEEN CRONIN [[id number]] Allergies As of Date: 09/18/2017 (No Known [...] Notes: >> Dexter Sykes) CLARA De León [facility] Sep 18, 2017 10:01 AM [...] Encounter Status:Closed by DEXTER DE LEÓN on 09/18/17[facility] 19-52-3345FKWFKqnfmc Visit (RADTSA) JOSS WASHINGTON ([id number]) 1950 F Date Time Provider Department 09/16/17 [...] Encounter Status:Closed by FARHEEN CRONIN MD on 09/16/17[facility] 82-00-9018Nayynxz mass concHNO ID: [id number] Author: Farheen Cronin Service: (none) Author Type: [...] radiation treatment as planned. ? Farheen Cronin MDNoBerger Hospital 09-09-2017 Protein mass concHNO ID: [id number] Author: Jem Santana Service: (none) Author Type: [...] discomfort progresses requiring intervention. Signed by: Jose NixonBluffton HospitalAugustus 06-74-0323GYJR Office Visit (RADTSA) JOSS WASHINGTON ([id number]) 1950 F Date Time Provider Department 09/08/17 [...] Encounter Status:Closed by JEM SANTANA MD on 6/21/18[facility]C and Differentialon 46-14-9753Jyj Baso0.03 k/uLNormal<0.11CSalem City Hospital on above:Performed By: #### CBCDIF ####[place] [address] [address] AveCSenatobia, [place] [phone] Mono0.45 k/uL Normal<0.87[facility] on above:Performed By: #### CBCDIF ####[place] [address] [address]CSenat[address], [place] [phone] Neut3.74 k/uLNormal1.45-7.50[facility] on above:Performed By: #### CBCDIF ####[place] [address] [address], [place] [phone]/100 WBC (Bld)0.5 %NormalMercy Memorial Hospital on above:Performed By: #### CBCDIF ####[place] [address] [address] Av[place], [place] [phone]=6.68 NormalMercy Memorial Hospital on above:Result Comment: Preliminary result. Interpret with caution. Final results may vary. Results requested and read back by: /09/04/1710/15/1026/OSITO CASTELLONPerformed By: #### CBCDIF ####[place] [address] [address]CSen[address], [place] [phone] #/vol (Bld)0.23 10*3/uLNormal<0.46[facility] on above: Performed By: #### CBCDIF ####[place] [address] [address]CS[address], [place] [phone]/100 WBC (Bld)3.7 %Normal [facility] on above:Performed By: #### CBCDIF ####[place] [address] [place] [phone] [phone] distribution width Ratio (RBC)15.5 %High11.5-15.0[facility] on above:Performed By: #### CBCDIF ####[place] [phone] Volume Fraction (Bld)37.1 %Chyghk05.0-46.0[facility] on above: Performed By: #### CBCDIF ####[place] [phone] mass conc (Bld)12.2 g/dLNormal 11.5-15.5CSalem City Hospital on above:Performed By: #### CBCDIF ####[place] [phone] 09-2261Lymphocytes #/vol (Bld)1.78 10*3/uLNormal1.00-4.00[facility] on above:Performed By: #### CBCDIF ####[place] [phone]/100 WBC (Bld)28.6 %NormalMercy Memorial Hospital on above:Performed By: #### CBCDIF ####[place] [phone] Entitic mass (RBC)30.3 bJZdkpti66.0-34.0[facility] on above:Performed By: #### CBCDIF ####[place] [phone] mass conc (RBC) 32.9 g/mCGmqlny44.5-36.0[facility] on above:Performed By: #### CBCDIF ####[place] [phone] Entitic volume (RBC)92.1 rJBffzun39.0-100.0[facility] on above:Performed By: #### CBCDIF ####[place] [address] [address] [phone]/100 WBC (Bld)7.2 %NormalAdena Fayette Medical Centerment on above:Performed By: #### CBCDIF ####[place] [address] [address] [phone]/100 WBC (Bld)60.0 %NormalParkview Health Comment on above:Performed By: #### CBCDIF ####[address] [phone] mean volume Entitic volume (Bld)9.3 fLNormal9.0-12.7CSalem City Hospital on above:Performed By: #### CBCDIF ####[place] [address] [address] [phone] #/vol (Bld)285 10*3/qYVflmzb453-729WhhetzftoMercy Memorial Hospital on above:Performed By: #### CBCDIF ####[place] [address] [address] [place] [phone] #/vol (Bld)4.03 10*6/uLNormal3.90-5.20[facility] on above:Performed By: #### CBCDIF ####[address] Av[address] [place] [phone] #/vol (Bld)6.19 10*3/uLNormal3.70-11.00[facility] on above:Performed By: #### CBCDIF ####[place] [address] [address] [phone] 09-04-2017 CNOVOffice Visit (RADTSA) JOSS WASHINGTON ([id number]) 1950 F Date Time Provider Department 09/04/17 [...] Dexter De León RN Referring Provider: FARHEEN CRONNI [[id number]] Allergies As of Date: 09/04/2017 (No Known [...] Visit Notes: >> Dexter De León RN [facility] Sep 04, 2017 12:44 PM [...] Encounter Status:Closed by DEXTER DE LEÓN on 09/04/17[facility] 70-23-5125HZEPSyruqf Visit (RADTSA) JOSS WASHINGTON ([id number]) 1950 F Date Time Provider Department 09/02/17 [...] Encounter Status:Closed by FARHEEN CRONIN MD on 09/02/17[facility] 29-34-1396Ybykhdm mass concHNO ID: [id number] Author: Farheen Cronin Service: (none) Author Type: [...] Continue radiation treatment as planned. Farheen Cronin MDPremier Health Miami Valley Hospital 66-03-7882RLVUUvpgqq Visit (RADTSA) JOSS WASHINGTON ([id number]) 1950 F Date Time Provider Department 08/27/17 [...] Jem Santana MD Referring Provider: JEM SANTANA [[id number]] Allergies As of Date: 08/27/2017 (No Known [...] Encounter Status:Closed by JEM SANTANA MD on 09/12/17[facility] 07-48-2198Gvprqfa mass concHNO ID: [id number] Author: Jem Santana Service: (none) Author Type: [...] the course of treatment. Signed by: Jose NixonCleveland Clinic Medina [facility] NON-RADIOLOGY -NBNRon 69-70-8590YHXW CT NON-RADIOLOGY -[facility] Images - Obtained Outside of Imaging [place] [id number]_IDCSIACNNormalParkview HealthCNCNPATEDon 08-20-2017 CNCNPATEDEducation (RADTSA) JOSS WASHINGTON ([id number]) 1950 F Date Time Provider Department 08/20/17 ANATOLIY HA LPN Reason for Visit: Patient Education [91] Visit Notes: >> Anatoliy Ha RN FriAugust 20, 2017 3:46 PM Status: Signed Radiation Therapy - Patient Education Note PATIENT NAME: Joss Washington PATIENT August 20, 2017 [facility] FACILITY/LOCATION: [email or web address] READINESS TO LEARN Cognitive Ability: Alert and [...] need for social work, van service, and geospatial information scientist. Was approved? No Signed by: Anatoliy Ha [...] mouth. Encounter Status:Closed by ANATOLIY HA on 08/20/17[facility] Healthon 76-48-7087DRZJJfqrkk Visit (RADTSA) JOSS WASHINGTON ([id number]) 1950 F Date Time Provider Department 08/20/17 [...] her . 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 COMPLETE REVIEW [...] Cronin MD cc: Lawrence Rai MD [address] [place] [address] Katherine Downs MD [facility] [address] [place] [address] Dr. Berman This note was dictated with Radhaon Naturally Speaking and may contain some grammatical errors due to limitations of the software. Referring Provider: KATHERINE DOWNS [[id number]] Allergies As of Date: 08/20/2017 (No Known [...] Encounter Status:Closed by FARHEEN CRONIN MD on 08/20/17[facility] 30-34-2163Syhrvoa mass concHNO ID: [id number] Author: Farheen Cronin Service: (none) Author Type: [...] her . 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 COMPLETE REVIEW [...] Cronin MD cc: Lawrence Rai MD [address] [place] [address] Katherine Downs MD [facility] [address] [place] [facility] Dr. 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 / NRS 08/20/20173:59 [facility] SystemAbbey anderson concHNO ID: [id number] Author: Farheen Cronin Service: (none) Author Type: Physician Type: Progress Notes Filed: 08/27/2017 12:34 AM Note Text: JOSS WASHINGTON [id number] 08/20/2017 [facility] Department of Radiation Oncology Treatment Planning [...] DVH. Electronically Signed Farheen Cronin M.D. 08/26/20171:02 PMNWVUMedicine Harrison Community HospitalCNOVSPon 88-82-0155XMJPQIIjcod (SP) Office (HEMACL) JOSS WASHINGTON ([id number]) 1950 F Date Time Provider Department 08/14/17 [...] Katherine Downs MD Referring Provider: GEREMIAS BERMAN [[id number]] Allergies As of Date: 08/14/2017 (No Known Allergies) Date Reviewed: 08/14/2017 Reviewed by: Iesha Luis - Fully Assessed Primary Visit Diagnosis:Ductal carcinoma in situ (DCIS) of right breast [D05.11] Order(s):RAD/ONC CONSULT [9037] Order #: [id number]: 1 Prescriptions as of 08/14/2017 Sig: VENTOLIN [...] Encounter Status:Closed by KATHERINE DOWNS MD on 08/14/17[facility] 89-66-4101Sapsyav mass concHNO ID: [id number] Author: Katherine Downs Service: (none) Author Type: [...] is needed. - RAD/ONC CONSULT Katherine Downs MDFisher-Titus Medical CenterUS-US GUIDE LOCAL BREAST RT IMPORTon 14-30-8052UR-US GUIDE LOCAL BREAST RT IMPORTImages were obtained outside of [facility] [id number]_IDCSIACNNWVUMedicine Harrison Community HospitalMAMM OUTSIDE DICOM IMPORT -NBNRon 55-51-2138UYPM OUTSIDE DICOM IMPORT -NBNRImages were obtained outside of [facility] [id number]_IDCSIACNNWVUMedicine Harrison Community Hospital Encounters Encounter DateEncounter TypeCare ProviderFacilityStart: 01-05-2025 End: 92-42-4325olzzcnhxzxTDTVMPABarberton Citizens Hospitaltart: 08-06-2024 End: 42-41-7713usviqunslyRXRSKFostoria City Hospitaltart: 05-07-2024 End: 03-59-0482fwpwbuliysLPHEQFostoria City Hospitaltart: 03-16-2022 End: 02-03-8504kfgxynpjxkHK LAWRENCE HOYFacility:H4Gmylw: 82-69-4776uixkfzjxyjRB LAWRENCE HOYFacility:V6Zchwg: 02-08-2022 End: 80-51-5384kvshgqfcnhTC LAWRENCE HOYFacility:K0Qrprx: 11-30-2021 End: 86-46-9619ejxbsxcbffNH LAWRENCE HOYFacility:U5Pgxhn: 06-11-2018 End: 16-60-0134Qzucgay encounter procedureFARHEEN ARVIZUKing's Daughters Medical Center OhioStart: 02-12-2018 End: 05-12-6109Ymnpjlj encounter procedureFARHEEN ARVIZUKing's Daughters Medical Center OhioStart: 12-04-2017 End: 23-50-0745Dxqtmrp encounter procedureHOLJACOB (CONTRACT PROCESSOR) [facility]: 10-30-2017 End: 31-37-2332Fdukokn encounter procedureFARHEEN ARVIZUMary [facility]: 10-15-2017 End: 58-49-1501Itjhneg encounter procedureKATHERINE [facility]: 10-14-2017 End: 54-85-6564Mcbeulc encounter procedureFARHEEN BARBOSACrystal Clinic [facility]: 10-13-2017 End: 16-99-4955Ddtprfc encounter procedureJAORIANA [facility]: 10-09-2017 End: 67-19-6825Ifrrzku encounter procedureJAORIANA [facility]: 10-08-2017 End: 95-81-0129Rzjufng encounter procedureJAORIANA [facility]: 10-07-2017 End: 66-31-0496Ojwdjtk encounter procedureFARHEEN ARVIZUMary [facility]: 10-06-2017 End: 98-12-5853Czmcujz encounter procedureJAORIANA [facility]: 10-03-2017 End: 23-86-7658Wgxzwhh encounter procedureJAORIANA [facility]: 10-02-2017 End: 18-46-8082Aktutmb encounter procedureJAORIANA [facility]: 09-30-2017 End: 81-49-3609Gqzgrpg encounter procedureFARHEEN ARVIZUMary [facility]: 09-29-2017 End: 65-83-8051Grexcmt encounter procedureJAORIANA [facility]: 09-26-2017 End: 60-99-6793Vicjrdf encounter procedureJAORIANA [facility]: 09-25-2017 End: 27-28-3600Plmhvsh encounter procedureJAORIANA [facility]: 09-24-2017 End: 69-64-6795Zcewten encounter procedureJAORIANA [facility]: 09-23-2017 End: 86-54-5558Fcuvrnb encounter procedureJAORIANA [facility]: 09-22-2017 End: 07-80-0800Uxcnquc encounter procedureFARHEEN ARVIZUMary [facility]: 09-19-2017 End: 20-42-8819Jitvfxg encounter procedureKATHERINE [facility] HospitalStgrand [facility]ids: 09-18-2017 End: 66-83-5032Sdtjssp encounter procedureKHKHANHAdrián Celeste LUIS MANUELROMINAKing's Daughters Medical Center OhioStgrand [place]: 09-17-2017 End: 15-25-2687Rztvmpg encounter procedureKATHERINE ETIENNENationwide Children's Hospital: 09-16-2017 End: 96-42-2904Njbbgjx encounter procedureKHKHANHAdrián Celeste LUHLETATrinity Health System West CampusStgrand rapids: 09-15-2017 End: 99-47-9628Btyycvz encounter procedureJAORIANA [facility]: 09-12-2017 End: 36-49-6037Axdlzhy encounter procedureJAORIANA [facility]: 09-11-2017 End: 84-36-8343Komyzdu encounter procedureKATHERINE [facility]: 09-10-2017 End: 30-73-0960Ggnvwjz encounter procedureKATHERINE [facility]: 09-09-2017 End: 08-63-1898Gkwkzya encounter procedureJAORIANA [facility]: 09-08-2017 End: 45-20-3599Pdobzmc encounter procedureSACAROLINE [facility] Start: 09-05-2017 End: 35-91-6819Krlbato encounter procedureJAORIANA [facility] HospitalStgrand [facility]: 09-04-2017 End: 04-43-4926Pqxlfkb encounter procedureKHKHANHAdrián Celeste LUIS MANUELROMINAKing's Daughters Medical Center [place]Stgrand [place]: 09-03-2017 End: 20-19-0277Plqusro encounter procedureKATHERINE [facility] HospitalStgrand [facility]: 09-02-2017 End: 70-01-4684Dojuovs encounter procedureKHMELODY Celeste LUHKing's Daughters Medical Center OhioStgrand rapids: 09-01-2017 End: 49-45-9323Bjihtnz encounter procedureJAORIANA [facility]: 08-29-2017 End: 37-12-9341Ewtrago encounter procedureJAORIANA [facility]: 08-28-2017 End: 15-99-4687Rprxxmj encounter procedureJAORIANA [facility]: 08-27-2017 End: 24-74-6594Ycwzxqm encounter procedureSACAROLINE [facility] Start: 08-20-2017 End: 20-63-3435Glmaojz encounter procedureFARHEEN GalvanHolzer HospitalStart: 08-14-2017 End: 79-86-9682Aquighe encounter procedureKATHERINE BradfordHolzer Hospital Payers DatePayer CategoryPayerPolicy [id number] 1960Medicare [id number] [id number] Progress note 08-06-2024 Note Date & CryeFkjpEwlqegio81-27-7845 [facility] Reason for [...] right breast cancer Patient presented to [facility] on 03/18/2024 with vision changes which [...] Holter monitor 03/19/2024 Review (more content not included)...[facility] Progress note 05-07-2024 Note Date & NxqeSttuKkdyqnkw18-17-7859 [facility] Reason for cardiology consult: TIA Chief Complaint: dyspnea on exertion HPI: Joss Washington is a 73 y.o. female with history of hypertension, hyperlipidemia, recent TIA, and right breast cancer Patient presented to [facility] on 03/18/2024 with vision changes which [...] has no past medical history of Stroke ([facility] Surgical History She has a past surgical [...] Recent TIA, no ische (more content not included)...[facility] Summary Purpose Family History No Family History Records FoundNo Family History Records FoundNo Family History Records FoundNo Family History Records Found Advance Directives No Advanced Directives Records FoundNo Advanced Directives Records FoundNo Advanced Directives Records FoundNo Advanced Directives Records Found Additional Source Comments INFORMATION SOURCE (unrecogn ized section and content) DATE CREATED AUTHOR 06/15/2018 [facility] DATE CREATED AUTHOR AUTHOR'S ORGANIZ ATION 07/26/2019 [facility] DATE CREATED AUTHOR AUTHOR'S ORGANIZ ATION 03/22/2022 [facility] DATE CREATED AUTHOR AUTHOR'S ORGANIZ ATION 01/10/2025 [facility] FOR RECORDS PERTAINING TO PATIENTS [...] BE BASED ON THE PRIMARY CLINICAL RECORDS. [facility] [employer] [facility]. provides no warranty or guarantee of the accuracy or completeness of information in this document.
== END 2025-03-01 08:27 | disposition home or self-care (01) ==
LOC: LAB 08:26
PROVIDERS: PCP Family Medicine; Visit Provider Family Medicine
DX: E78.5 Hyperlipidemia, unspecified (principal); Z23 Encounter for immunization; R53.82 Chronic fatigue, unspecified; E11.9 Type 2 diabetes mellitus without complications; D64.9 Anemia, unspecified; E03.9 Hypothyroidism, unspecified; E55.9 Vitamin D deficiency, unspecified; D50.9 Iron deficiency anemia, unspecified; I50.30 Unspecified diastolic (congestive) heart failure; I11.0 Hypertensive heart disease with heart failure
CPT/HCPCS: G0328

== ENCOUNTER 2025-03-02 08:16 | Outpatient (OUT) | payer MEDICARE, OTHER, SELFPAY ==
--- OUTSIDE RECORDS SUMMARY | 2025-03-02 08:18 | XMS_ITS ---
Author Organization [facility] Address [address] [place], [place] [id number] Care Team Providers Care Correspondence Transcriber Name Role Phone Paolo Rai MD Primary Care Provider [phone] Active Problems ProblemNoted DateDiagnosed DateDuctal carcinoma in [...] Dr. Harry Peterson Other Providers: Emily Block APRN.DISTRICT ENGINEER Treatment Summary Diagnosis Cancer Type/Histology Subtype: Right [...] Test How Often Oncology Team Mammogram Annually WATERPROOF BAG CUTTING MACHINE OPERATOR or PCP Pap/pelvic exam As indicated by [...] Resources you may be interested in: [email or web address] Assistant Buyer Link Fabric Machine Operator Art Therapy Viviane Wise (Breast Cancer Support Group) meets the friday of every month, from 4 PMto 5 PM, at [address] [place] [address] Prepared by: Emily Block APRN.DISTRICT ENGINEER Delivered on: December 04, 2017 - This [...]
--- OUTSIDE RECORDS SUMMARY | 2025-03-02 08:18 | XMS_ITS | Clinical Summary ---
Author Organization [facility] Address [address] [place], [place] [address] Care Team Providers Care Infrastructure Analyst Name Role Phone Paolo Rai MD Primary Care Provider [phone] Allergies No known active allergies Medications MedicationSigDispense [...] number is lower riskNot on file03/07/2020Data from: https://www.neighborhoodatlas.medicine.[facility].edu/. Last address used for calculationNot on file03/07/2020CommentsNoSex and Gender Information ValueDate RecordedSex Assigned at BirthNot on fileLegal BpbFbpzuv22/16/2018 12:59 PM EDTGender IdentityNot on fileSexual OrientationNot on file Last Filed Vital Signs Vital SignReadingTime TakenCommentsBlood Dzdsikkb305/7406/11/2018 10:34 AM EDT Pktjh155806/11/2018 10:34 AM VPSMtthlngofxu15.8 ??C (98.3 ??F)12/04/2017 10:47 AM EDTRespiratory Xatp636106/11/2018 10:34 AM EDTOxygen Kgupwpfisi28%06/11/2018 10:34 AM EDTInhaled Oxygen Concentration--Cvtizh056 kg (291 lb)06/11/2018 10:34 AM EDT Vpdxsj888 cm (5' 2.99 )12/04/2017 10:36 AM EDTBody Mass Index51.56012/04/2017 10:36 AM EDT Plan of Treatment Health MaintenanceDue DateLast DoneCommentsAnxiety Ujfpajrki90/26/1970Depression Sjdgxqueb98/26/1970Hepatitis C Tzzdmkvmt67/26/1970DTaP,Tdap,Td Vaccine (1 - Tdap)1970Mammogram Pqcesooea17/26/1992CT Ktqghrvbgxuc94/26/1997Cologuard (FIT-DNA)05/26/19964018Tnkylpvwwwl48/26/1997Colorectal Cancer Ticcncjjy89/26/1997 Diabetes Klbaupxup96/26/1997Fecal Occult Blood1996Lipid Screening 05/26/19969454Pxpgplkbcrctl66/26/1997Shingrix Vaccine (1 of 2)2001Bone Density Gitsypmde17/26/2017Pneumococcal Vaccine: 50+ (2 of 2 - PCV), 09/06/2016Advance Directive Lxrhqxrvrn85/01/2025ovid-19 Vaccine (1 - 2024- season)2024Influenza Vaccine (#1)5006/26/2017, 01/14/2016RSV Vaccine (1 - 1-dose 75+ series)2026 [place] [address] Care Teams Team MemberRelationshipSpecialtyStart Date Paolo Rai MD PCP - GeneralFamily Medicine07/14/17
--- OUTSIDE RECORDS SUMMARY | 2025-03-02 08:18 | XMS_ITS | Clinical Summary ---
Author Organization [facility] Address [address] [place] [address] Care Team Providers Care Performance Improvement Specialist Name Role Phone Paolo Rai MD Primary Care Provider [phone] Social History Tobacco UseTypesPacks/DayYears UsedDateSmoking Tobacco: Never Assessed CommentsUnknownSex and Gender InformationValueDate RecordedSex Assigned at Not on fileLegal UpaYjroob98/15/2023 8:21 PM EDTGender IdentityNot on fileSexual OrientationNot on file Last Filed Vital Signs Vital SignReadingTime TakenCommentsBlood Bweakexv630/8004 12:00 PM EDT Pulse--Temperature--Respiratory Rate--Oxygen Saturation--Inhaled Oxygen Concentration--Xilzhk977 kg (298 lb)07/14/2017 12:00 PM WACMmujuy436 cm (5' 3 ) 07/14/2017 12:00 PM EDTBody Mass Index52.7904 12:00 PM EDT Plan of Treatment DateTypeDepartmentCare Team (Latest Contact Info)Ckntknxjzsd80/12/2025 1:00 PM ESTOffice Visit [facility] [address] [place] [phone] Porsha Gary S, AUD [address] [place] [address] 03/15/2025 10:00 AM ESTOffice Visit [facility] [address] [place] [address] Maddi Simon MD [address] [place] [address] Insurance [facility] [address] [place] [address] Care Teams Team MemberRelationshipSpecialtyStart DateEnd Paolo Rai MD [address] [facility] [place] [address] PCP - GeneralFamily Medicine12/24/24
--- OUTSIDE RECORDS SUMMARY | 2025-03-02 08:18 | XMS_ITS | Clinical Summary ---
Author Organization [facility] Address [address] [place] [address] Care Team Providers Care Statistics Teacher Name Role Phone Paolo Rai MD Primary Care Provider [phone] Allergies No known active allergies Medications MedicationSigDispense [...] Problems ProblemNoted DateDiagnosed DateSleep apnea08/06/2024TIA (transient ischemic attack)05/09/20246194Jbskbonhutunzr60/09/2025Essential dtusnwjpyqyr93/09/2025DOE (dyspnea on exertion)05/09/2024Morbid obesity with BMI of 50.0-59.9, adult 05/09/2024Ductal carcinoma in situ (DCIS) of right knitkv5308/14/2017 Encounters DateTypeDepartmentCare GfzqQrxbferqxpj43/17/2025 2:45 PM ESTConsult [facility] [address] [place] [phone] Valentin Cohen MD Suprasellar mass (Primary Dx)01/05/2025 - 01/05/2025 11:59 PM EDTHospital Encounter [facility] Radiology External Films [address] [place] [address] Discharge Disposition: Home or Self [...] 02/14/2025CommentsUnknownSex and Gender InformationValueDate RecordedSex Assigned at UeynqXepuop76/10/2025 4:37 AM EDTLegal WbvEgivjm45/10/2025 11:02 AM ESTGender IdentityChoose not to ydseeyyp67/10/2025 4:37 AM EDTSexual Orientation Choose not to /10/2025 4:37 AM EDT Last Filed Vital Signs Vital SignReadingTime TakenCommentsBlood Psgoffep750/80104/16/2024 2:43 PM EST Natjt688302/14/2025 2:43 PM ESTTemperature--Respiratory Rate--Oxygen Saturation 100%02/14/2025 2:43 PM ESTInhaled Oxygen Concentration--Jvspfe911 kg (295 lb) 02/14/2025 2:43 PM CPOSeyklt350 cm (5' 3 )02/14/2025 2:43 PM ESTBody Mass Index 52.26104/16/2024 2:43 PM EST Plan of Treatment DateTypeDepartmentCare Team (Latest Contact Info)Eghfbqmtiiq65/15/2025 9:20 AM ESTOffice Visit [facility] [address] [place] [address] Latonya Mac MD [address] [facility] [address] MS:[place] [address] 05/17/2025 12:30 PM ESTAppointment [facility] [address] [place] [address] 05/17/2025 1:15 PM ESTFollow-Up [facility] Surgery [facility] [address] [place] [address] Valentin Cohen MD [address] [place] [address] Health MaintenanceDue DateLast DoneCommentsCT Extohqzltwwx28/26/1952Colonoscopy 2Colorectal Cancer Xgkxzvqtq96/26/1952Diabetes: Hemoglobin A1C 1950FIT-DNA1950FIT1950FOBT1950Medicare Annual Wellness (AWV)1950 4324Qmcoiyicetuue23/26/1952Diabetes: Retinopathy Ffwzpqzfd47/26/1962 Diabetes: Urine Protein Swuzlbcrr63/26/1971Adult Tiitikm7905/26/1973Mammogram 1991Zoster Vaccines (1 of 2)2001Pneumococcal Vaccine: 50+ Years (2 of 2 - PCV), 09/06/2016COVID-19 Vaccine ( - season) 2024Depression Oncqhrlgw69Fall Risk Xcmapixvy20/17/2026 02/14/2025Influenza RbuabvhFyesxbhvd34/10/2025, 12/31/2023, 02/03/2023, Additional history existsHIB VaccinesAged OutNo [...] Procedures Procedure NamePriorityDate/TimeAssociated DiagnosisCommentsMR TRANSFER OF OUTSIDE VUWDYGxipjen18/08/2025 12:00 AM EDT from Last 3 Months [...] Number IMAGING from Last 3 [place] [address] [place], [place]SE [address] Care Teams Team MemberRelationshipSpecialtyStart DateEnd Paolo Rai MD [address] [facility] [place] [address] PCP - General05/07/24
--- OUTSIDE RECORDS SUMMARY | 2025-03-02 08:18 | XMS_ITS | Clinical Summary ---
Author Organization [facility] tem Address [id number] [address] [place] [address] Care Team Providers Care Network Program Manager Name Role Phone Paolo Rai MD Primary Care Provider [phone] Social History Tobacco UseTypesPacks/DayYears UsedDateSmoking Tobacco: Never AssessedChildcare AnswerDate UplnjrklDequfzwzvXqacxbu75/12/2019EmploymentAnswerDate Recorded WuzsyuufkcEtgkiyu59/12/2019CommentsUnknownSex and Gender Information ValueDate RecordedSex Assigned at BirthNot on fileLegal OelNchajz69/06/2015 11:53 AM EDTGender IdentityNot on fileSexual OrientationNot on file Plan of Treatment Not on file Medical Devices Not on file Insurance * Guarantor: Charlee Nagy TypeRelation to PatientDate of PhoneBilling AddressPersonal/IkuyntSwkj68/26/1951 (Home) [address] [place] [address] Care Teams Team MemberRelationshipSpecialtyStart DateEnd Date Paolo Rai MD [address] [place] [address] [facility] Gwjdphoz79/20/24
--- NOTE | 2025-03-02 08:19 | MM_ITS ---
Patient Name: JOSS WASHINGTON MR#: [id number] : 1950 Exam Date: 03/02/2025 Ordering Doctor: DR LAWRENCE ALBERT . RADIOLOGY REPORT PROCEDURE: MM TOMOSYNTHESIS SCREENING BI COMPARISON: MM TOMOSYNTHESIS SCREENING BI, 10/24/2023. MG MAMM ABHAY DIAG W CAD, 02/08/2022. MG MAMM ABHAY DIAG W CAD, 02/07/2021. MG MAMM SCREEN ABHAY W CAD, 06/06/2017. INDICATIONS: Screening Calculator Name NCI Breast Cancer Risk Assessment Tool 5 Year Breast Cancer Risk n/a% Lifetime Breast Cancer Risk n/a% Personal Breast Cancer Yes, Right lumpectomy with radiation age 66 Personal Ovarian Cancer No Treatments lumpectomy and radiation riht breast Family Cancers Mother with breast cancer at age 52; Sister with breast cancer at age 68; Sister with lung& brain cancer at age 68. LOCATION: [facility] BREAST COMPOSITION: There are scattered areas of fibroglandular density. FINDINGS: RIGHT BREAST: No significant suspicious finding. Similar focal asymmetries noted. Benign-appearing calcifications are present. LEFT BREAST: No significant suspicious finding. Similar focal asymmetries noted. Benign-appearing calcifications are present. DIAGNOSTIC CATEGORY 2--BENIGN FINDING. NO CHANGE FROM COMPARISON. RECOMMENDATIONS: ROUTINE MAMMOGRAM AND CLINICAL EVALUATION IN 12 MONTHS. Dictated by: Levi Reilly MD on 03/02/2025 at 11:01 Approved by: Levi Reilly MD on 03/02/2025 at 11:06
--- OUTSIDE RECORDS SUMMARY | 2025-03-02 08:20 | XMS_ITS | CCD ---
Author Organization [facility] Care Team Providers Care Steel Box Toe Inserter Name Role Phone KATHERINE DOWNS Attending Unavailable [...] CRONIN, KHALID R Referring Unavailable LISA WILLAMS ([facility]) Attending Unavailabl e CRONIN, KHALID R [...] [Intraductal carcinoma in situ of right breast]Onset: 77-98-0172IdwggchSeruqsmv mellitus without complication (1 source)Type 2 diabetes mellitus without complications; Translations: [TYPE 2 DM WITHOUT COMPLICATIONS]Onset: 11-23-5089HeqvtmkGacsomjqw of lipid metabolism (2 sources)Hyperlipidemia, unspecified; Translations: [Hyperlipidemia, unspecified]Onset: 58-45-2880QzkuxzuTbmqqybcj hypertension (3 sources)Essential (primary) hypertension; Translations: [ESSENTIAL PRIMARY HYPERTENSION]Onset: 29-29-9467HjlzahnHfamj connective tissue disease (4 sources)Impingement syndrome of left shoulder; Translations: [IMPINGEMENT SYNDROME LEFT SHOULDER]Onset: 48-26-0635ZtqgepehSqfud nutritional; endocrine; and metabolic disorders (1 source)Morbid (severe) obesity due to excess calories; Translations: [MORBID SEVERE OBES D/T EXCESS ARIAS]Onset: 41-06-8709EkojosvVrqxvndw codes; unclassified (1 source)Family history of malignant neoplasm of breast; Translations: [FAMILY HX MALIG NEOPLASM OF BREAST]Onset: 82-40-5079WdcrldgwEsvhyeid codes; unclassified (1 source)Family history of malignant neoplasm of trachea, bronchus and lung; Translations: [FAM HX MALIG NEOPLSM TRACH BRON LNG]Onset: 92-21-0475Grzghhty Residual codes; unclassified (1 source)Family history of malignant neoplasm of other organs or systems; Translations: [FAM HX MALIG NEOPLASM OTH ORGN/SYS]Onset: 30-45-5135Faqaocdd Transient cerebral ischemia (2 sources)Transient cerebral ischemic attack, unspecified; Translations: [Transient cerebral ischemic attack,unspecified]Onset: 68-24-7784Ophcffw Past or Other Problems Problem ClassificationProblemDateDocumented DateEpisodic/ChronicDeficiency and other anemia (1 source)Anemia, unspecified; Translations: [ANEMIA UNSPECIFIED]Onset: 71-97-1636XqhtbugoQjqfpcao mellitus without complication (1 source)Other abnormal glucose; Translations: [OTHER ABNORMAL GLUCOSE]Onset: 67-10-4272BjpyaissIhcoi nutritional; endocrine; and metabolic disorders (4 sources)Overweight; Translations: [OVERWEIGHT]Onset: 96-72-8106Hkpmxfgc Results Test NameValueInterpretationReference LgzswYqgdqjaj99eg 74-56-515507Lksh: John Yin MD Sent: 08/29/2024 3:06 PM EDT To: Gerda Coppola MA Subject: RE: Scan Labs are overall good. Ask her if her blood pressure is better after adding Aldactone/spironolactone Advised patient of Dr. Yin's findings. Patient states her blood pressure is doing great and she feels much better.[facility] Office Visiton 15-88-5083Xoeqku-up [id number] Joss Washington 1950 F Date Provider Department Center 08/06/2024 [id number] YIN [facility] Family History Problem Relation Age of Onset Hypertension Mother Stroke Mother Hyperlipidemia Mother Hypertension Father Coronary artery disease Father Hyperlipidemia Father Cancer Father Family Status - Relation Status Age at Mother Father Level of Service:02152 NM OFFICE/OUTPATIENT ESTABLISHED MOD [facility] 30 MIN Reason for Visit and Comments: Hyperlipidemia [182] - Had lipid in May 2024. Hypertension [649272] - She brought BP log with her. Shortness of Breath [486362] - She attributes her MORENO to her weight. Says it's hard for her to walk a lot due to knee pain. Palpitations [391923] - Hasn't had palpitations recently. Transient Ischemic Attack [140191] - Had bubble study in May 2024. She wants to know if she can stop Plavix due to TIA being ruled out.[facility] 56-16-6925Wskhxm-up [id number] Joss Washington 1950 F Date Provider Department Center 05/07/2024 [id number] YIN [facility] Family History Problem Relation Age of Onset Hypertension Mother Stroke Mother Hyperlipidemia Mother Hypertension Father Coronary artery disease Father Hyperlipidemia Father Cancer Father Family Status - Relation Status Age at Mother Father Level of Service:43069 NM OFFICE/OUTPATIENT NEW MODERATE MDM 45 MINUTES Reason for Visit and Comments: Chest Pain [843304] - Patient describes it as chest discomfort . Says she was told 40+ years ago that she had mitral valve prolapse. Echo was done with recent admission. Hypertension [307808] - She was admitted to [facility] in Feb 2024 for TIA and hypertension. Hyperlipidemia [182] Shortness of Breath [] - C/o MORENO. Palpitations [] - She wore 7 day Holter after hospital admission. She is currently wearing a 30 day event monitor.[facility] SH[facility]ER LT 2V or >on 73-17-2020LZ SHOULDER LT 2V or >EXAM: Shoulder. HISTORY: [...] Electronically authenticated by: LIBIA GIBBS Date: 2022-03-17 13:[address] [place], [place] [address]MG MAMM ABHAY DIAG W CADon 87-30-4471JJ MAMM ABHAY DIAG W CAD Patient: JOSS WASHINGTON Exam Date: 02/08/2022 : 1950 Gender:F Ordering : DR LAWRENCE RAI . Admission #: [id number] Family : Order #: [id number] CLICK HERE TO VIEW EXAM RADIOLOGY REPORT [...] brain cancer at age 69. LOCATION: [facility] BREAST COMPOSITION: Scattered areas fibroglandular density. [...] Brandon Lima M.D. on 02/08/2022 at 08:46NormalThe [facility] Health CenterT4, T3U, FTI LABCORPon 07-36-8426Qvfq Thyroxine Index1.4Pggkit4.2-4.9The [facility] Hospitalment on above:Performed By: #### THYLC #### [facility] [address] [place] [address] Dr. Sheldon CorderoT3 Mcdcbz83 %Clioml16-14Bll [facility] CenterComformerly [facility] on above: Performed By: #### THYLC #### [facility] [address] [place] [address] Dr. Sheldon CorderoT4 [Mass/Vol]6.4 ug/dLNormal4.5-12.0The [facility] on above:Performed By: #### THYLC #### [facility] [address] [place] [address] Dr. Sheldon McdowellC AUTO DIFFon 40-46-8675RNWW #0.1 103/ulNormal0.0-0.1The [facility] on above:Performed By: #### CBC #### [facility] [address] [address] [address] Sheldon CorderoBasophils/100 WBC (Bld)0.8 %Normal0.2-2.0[facility] Comment on above:Performed By: #### CBC #### [facility] [address] [address] [address] Sheldon Velasquez #0.3 103/ulNormal0.0-0.7The [facility] CenterComment on above: Performed By: #### CBC #### [facility] [address] [address] [address] Sheldon Fortuneosinophils/100 WBC (Bld)3.8 %Normal0.9-7.0[facility] Comment on above:Performed By: #### CBC #### [facility] [address] [place] [address] Dr. Sheldon Fortunerythrocyte distribution width (RBC) [Ratio]14.6 %Nqvvin00.0-15.0 [facility], AvonComment on above:Performed By: #### CBC #### [facility] [address] [place] [address] Dr. Sheldon CorderoHematocrit (Bld) [Volume fraction]39.3 %Jpoxdj94.0-48.0[facility], AvonComment on above:Performed By: #### CBC #### [facility] [address] [place] [address] Dr. Sheldon CorderoHemoglobin (Bld) [Mass/Vol]12.4 g/jTLypmva94.0-16.0[facility], AvonComment on above:Performed By: #### CBC #### [facility] [address] [address] [address] Sheldon Augustin #0.08 10e3/ulCritically high0.00-0.03[facility] Comment on above:Performed By: #### CBC #### [facility] [address] [place] [address] Dr. Sheldon Augustin %1.1 %Critically high0.0-0.5The [facility] Health CenterComment on above:Performed By: #### CBC #### [facility] [address] [address] [address] Sheldon Schulz #1.8 103/ulNormal1.2-3.8The [facility] on above:Performed By: #### CBC #### [facility] [address] [address] [address] Sheldon Leunghocytes/100 WBC (Bld)25.1 %Lkttfq49.5-60.0The [facility] Health CenterComment on above:Performed By: #### CBC #### [facility] [address] [place] [address] Dr. Sheldon Griffin DIFF REQNONormalThe [facility] CenterComment on above: Performed By: #### CBC #### [facility] [address] [place] [address] Dr. Sheldon Richardson (RBC) [Entitic mass]29.6 juJttcrs75.7-34.0The [facility] CenterComment on above:Performed By: #### CBC #### [facility] [address] [place] [address] Dr. Sheldon Brown (RBC) [Mass/Vol]31.6 g/hUSjqala21.9-35.2The [facility] on above:Performed By: #### CBC #### [facility] [address] [place] [address] Dr. Sheldon Brown (RBC) [Entitic vol]93.8 eXUggcar80.0-99.0The [facility] CenterComment on above:Performed By: #### CBC #### [facility] [address] [place] [address] Dr. Sheldon Xiong #0.4 103/ulNormal0.3-0.8The [facility] on above:Performed By: #### CBC #### [facility] [address] [place] [address] Dr. Sheldon Laneocytes/100 WBC (Bld)5.8 %Normal1.7-12.0The [facility] Comment on above:Performed By: #### CBC #### [facility] [address] [place] [address] Dr. Sheldon Lorenz #4.6 103/ulNormal1.4-6.5The [facility] CenterComment on above:Performed By: #### CBC #### [facility] [address] [place] [address] Dr. Sheldon Oropezautrophils/100 WBC (Bld)63.4 %Tyonkp77.0-75.0The [facility] CenterComment on above:Performed By: #### CBC #### [facility] [address] [place] [address] Dr. Sheldon Hernandez mean volume (Bld) [Entitic vol]8.9 fLCritically low 9.5-13.5The [facility] CenterComment on above:Performed By: #### CBC #### [facility] [address] [place] [address] Dr. Sheldon CorderoPLT277 103/spMpfdyd817-335Dtl [facility] CenterComment on above: Performed By: #### CBC #### [facility] [address] [place] [address] Dr. Sheldon CorderoRBC4.19 106/ulCritically low4.20-5.40The [facility] CenterComment on above:Performed By: #### CBC #### [facility] [address] [place] [address] Dr. Sheldon CorderoWBC7.2 103/ulNormal4.0-11.0The [facility] CenterComment on above: Performed By: #### CBC #### [facility] [address] [place] [address] Dr. Sheldon CorderoGLYCOHEMOGLOBIN A1Con 54-98-4672JPE RECOMMENDATIONSEE BELOWNormal The [facility] CenterComment on above:Result Comment: ADA RECOMMENDED LIMIT 4.0 - 6.0 ADA THERAPEUTIC TARGET < 7.0 ACTION SUGGESTED > 7.0Performed By: #### A1C #### [facility] [address] [address] [address] Sheldon CorderoGlucose [Mass/Vol]128 mg/dLAccess Hospital Dayton on above:Performed By: #### A1C #### [facility] [address] [place] [address] Dr. Sheldon CorderoHbA1c (Bld) [Mass fraction]6.1 %Normal4.5-6.2The [facility] on above:Performed By: #### A1C #### [facility] [address] [place] [address] Dr. Sheldon Call 75-84-4544Zwpj [Mass/Vol]58.0 ug/cVZkusoj13.0-170.0The [facility] on above:Performed By: #### IRON #### [facility] [address] [place] [address] Dr. Sheldon BaxterID PROFILEon 31-58-5632VTYY-HDL RATIO NORMSNorwalk Memorial HospitalComformerly [facility] on above:Result Comment: 3.3 - 4.4 LOW RISK 4.4 - 7.1 AVERAGE RISK 7.1 - 11.0 MODERATE RISK >11.0 HIGH RISKPerformed By: #### LIPID, TSH, CMP #### [facility] [address] [place] [address] Dr. Sheldon CorderoCholesterol [Mass/Vol]251 mg/dLCritically high<=200The [facility] on above:Performed By: #### LIPID, TSH, CMP #### [facility] [address] [place] [address] Dr. Sheldon Baumannesterol in HDL [Mass/Vol]70 mg/dLCritically jftj54-95Tho [facility] on above:Performed By: #### LIPID, TSH, CMP #### [facility] [address] [place] [address] Dr. Sheldon Baumannesterol in LDL [Mass/Vol]161.4 mg/dLAccess Hospital [place] on above:Performed By: #### LIPID, TSH, CMP #### [facility] [address] [address] [address] Sheldon CorderoCholesterol.total/Cholesterol in HDL [Mass ratio]3.6 {ratio} NormalThe [facility] Health CenterComment on above:Performed By: #### LIPID, TSH, CMP #### [facility] [address] [place] [address] Dr. Sheldon Adams NORMAL> or = 60 mg/dl - LOW CARDIOVASCULAR RISK <40 mg/dl - HIGH CARDIOVASCULAR RISKNewark HospitalComment on above:Performed By: #### LIPID, TSH, CMP #### [facility] [address] [place] [address] Dr. Sheldon CorderoLDL CALC NORMALSEE BELOWNoSt. Rita's HospitalComment on above:Result Comment: <100 mg/dl OPTIMAL 100 - 129 mg/dl NEAR OR ABOVE OPTIMAL 130 - 159 mg/dl BORDERLINE HIGH 160 - 189 mg/dl HIGH >190 mg/dl VERY HIGH Performed By: #### LIPID, TSH, CMP #### [facility] [address] [place] [address] Dr. Sheldon CorderoTriglyceride [Mass/Vol]98 mg/dLNormal<=150The [facility] Comment on above:Performed By: #### LIPID, TSH, CMP #### [facility] [address] [place] [address] Dr. Sheldon CorderoVLDL CALC19.6 mg/dLNoSt. Rita's HospitalComment on above: Performed By: #### LIPID, TSH, CMP #### [facility] [address] [place] [address] Dr. Sheldon CorderoPROF 14(COMP METB)on 36-28-9658Mvuxcpl [Mass/Vol]3.4 g/dLNormal 3.4-5.0The [facility] CenterComment on above:Performed By: #### LIPID, TSH, CMP #### [facility] [address] [place] [address] Dr. Sheldon CorderoAlbumin/Globulin [Mass ratio]0.9 {ratio}NormalThe [facility] CenterComment on above:Performed By: #### LIPID, TSH, CMP #### [facility] [address] [address] [address] Sheldon GriggsP [Catalytic activity/Vol]107 U/IDrsbym81-176Hlb [facility] CenterComment on above:Performed By: #### LIPID, TSH, CMP #### [facility] [address] [address] [address] Sheldon GriggsT [Catalytic activity/Vol]17 U/HYcfuda50-58Mwv [facility] CenterComment on above:Performed By: #### LIPID, TSH, CMP #### [facility] [address] [address] [address] Sheldon Bradleyon gap [Moles/Vol]10.9 mmol/LNormalThe [facility] Comment on above:Performed By: #### LIPID, TSH, CMP #### [facility] [address] [address] [address] Sheldon CorderoAST [Catalytic activity/Vol]11 U/LCritically qfw46-95Jrx [facility] CenterComment on above:Performed By: #### LIPID, TSH, CMP #### [facility] [address] [address] [address] Sheldon CroderoBilirubin [Mass/Vol]0.3 mg/dLNormal0.2-1.0The [facility] Comment on above:Performed By: #### LIPID, TSH, CMP #### [facility] [address] [address] [address] Sheldon CorderoCalcium [Mass/Vol]9.1 mg/dLNormal8.5-10.1The [facility] Comment on above:Performed By: #### LIPID, TSH, CMP #### [facility] [address] [address] [address] Sheldon CorderoChloride [Moles/Vol]106 mmol/VJaotqn79-302Ruk [facility] Comment on above:Performed By: #### LIPID, TSH, CMP #### [facility] [address] [address] [address] Sheldon CorderoCO2 [Moles/Vol]30.6 mmol/HHgratp39.0-32.0The [facility] Comment on above:Performed By: #### LIPID, TSH, CMP #### [facility] [address] [address] [address] Sheldon CorderoCreatinine [Mass/Vol]0.93 mg/dLNormal0.55-1.02The [facility] CenterComment on above:Performed By: #### LIPID, TSH, CMP #### [facility] [address] [address] [address] Sheldon FortuneGFR-AF ST LUCIAN>60Normal>=60The [facility] CenterComment on above:Performed By: #### LIPID, TSH, CMP #### [facility] [address] [address] [address] Sheldon FortuneGFR-NON AF ST LUCIAN=60Normal>=60The [facility] CenterComment on above:Performed By: #### LIPID, TSH, CMP #### [facility] [address] [address] [address] Sheldon CorderoGlobulin (S) [Mass/Vol]4.0 g/dLNormalThe [facility] CenterComment on above:Performed By: #### LIPID, TSH, CMP #### [facility] [address] [address] [address] Sheldon CorderoGlucose [Mass/Vol]101 mg/sSSffygt77-615QxnSelect [facility] Comment on above:Performed By: #### LIPID, TSH, CMP #### [facility] [address] [address] [address] Sheldon CorderoPotassium [Moles/Vol]4.5 mmol/LNormal3.5-5.1The [facility] Comment on above:Performed By: #### LIPID, TSH, CMP #### [facility] [address] [address] [address] Sheldon CorderoProtein [Mass/Vol]7.4 g/dLNormal6.4-8.2The [facility] Comment on above:Performed By: #### LIPID, TSH, CMP #### [facility] [address] [address] [address] Sheldon CorderoSodium [Moles/Vol]143 mmol/XAikizd064-339Hqh [facility] Comment on above:Performed By: #### LIPID, TSH, CMP #### [facility] [address] [place] [address] Dr. Sheldon Moon nitrogen [Mass/Vol]18.0 mg/dLNormal7.0-18.0The [facility] CenterComment on above:Performed By: #### LIPID, TSH, CMP #### [facility] [address] [place] [address] Dr. Sheldon Moon nitrogen/Creatinine [Mass ratio]19.4 mg/mgNormalThe [facility] CenterComment on above:Performed By: #### LIPID, TSH, CMP #### [facility] [address] [place] [address] Dr. Sheldon Galvez 59-17-9086SES5.774 uIU/mLNormal0.358-3.740The [facility] CenterComment on above:Performed By: #### LIPID, TSH, CMP #### [facility] [address] [place] [address] Dr. Sheldon CorderoLactic Acidon 72-77-6602Kjvvsfc [Mass/Vol]7.5 mg/dLNormal4.5-19.8 [facility]tering HealthComment on above:Performed By: #### [id number] #### [facility] [address], [place] [address]IHLUlo 66-32-8246UBKRDoowpl Visit (HILARIO) JOSS WASHINGTON ([id number]) 1950 F Date Time Provider Department 06/11/18 [...] pathologic stage 0 (Tis Nx ?M0), ER-positive, NM-positive, s/p partial mastectomy ? ? INTERVAL HISTORY: [...] M.D., FACRO ? cc: Lawrence Rai MD [address] [place] [address] ? Katherine Downs MD [facility] [place] [place] [address] ? Dr. Berman ? This note was dictated with Jazmin Naturally Speaking and may contain some grammatical errors due to limitations of the software. Dexter De León RN, was present in the examination room throughout the encounter. Referring Provider: LAWRENCE RAI [[id number]] Allergies As of Date: 06/11/2018 (No Known Allergies) Date Reviewed: 06/11/2018 Reviewed by: Dexter (Rn) CLARA De León - Fully Assessed Reason for Visit: Breast Cancer [519] Primary Visit Diagnosis:Ductal carcinoma in situ (DCIS) of right breast [D05.11] Order(s):[facility] [6496832] Order #: [id number] FUTURE Prescriptions as of 06/11/2018 Sig: VENTOLIN [...] Encounter Status:Closed by FARHEEN CRONIN MD on 06/11/18[facility] [id number] mass concHNO ID: [id number] Author: Farheen Cronin Service: ? Author Type: Physician Type: Progress Notes Filed: 06/11/2018 2:48 PM Note Text: Radiation Oncology - Follow Up Note PATIENT NAME: Joss Washington PATIENT DIAGNOSIS: ?DCIS of the Right breast, UIQ, pathologic stage 0 (Tis Nx ?M0), ER-positive, NM-positive, s/p partial mastectomy ? ? INTERVAL HISTORY: [...] examination. ? Signed by: Farheen Cronin M.D., [facility] ? cc: Lawrence Rai MD [address] [place] [id number] ? Katherine Downs MD [facility] [address] [place] [address] [address] Berman ? This note was dictated with Jazmin Naturally Speaking and may contain some grammatical errors due to limitations of the software. Dexter De León RN, was present in the examination room throughout the encounter.NormalMercy Health Perrysburg HospitalCNOVon 54-96-4081KXQDJvblqn Visit (RADTSA) JOSS WASHINGTON ([id number]) 1950 F Date Time Provider Department 02/12/18 [...] pathologic stage 0 (Tis Nx ?M0), ER-positive, NM-positive, s/p partial mastectomy ? ? INTERVAL HISTORY: [...] M.D., KAY ? cc: Lawrence Rai MD [facility] [place] [address] ? Katherine Downs MD [facility] [address] [place] [address] ? Dr. Berman ? This note was dictated with Radhaon Naturally Speaking and may contain some grammatical errors due to limitations of the software. Dexter De León RN, was present in the examination room throughout the encounter. Referring Provider: LAWRENCE RAI [[id number]] Allergies As of Date: 02/12/2018 (No Known [...] Encounter Status:Closed by FARHEEN CRONIN MD on 02/12/18[facility] 95-37-2934Yerkszk mass concHNO ID: [id number] Author: Farheen Cronin Service: (none) Author Type: Physician Type: Progress Notes Filed: 02/12/2018 10:40 AM Note Text: Radiation Oncology - Follow Up Note PATIENT NAME: Joss Washington PATIENT DIAGNOSIS: ?DCIS of the Right breast, UIQ, pathologic stage 0 (Tis Nx ?M0), ER-positive, NM-positive, s/p partial mastectomy ? ? INTERVAL HISTORY: [...] examination. ? Signed by: Farheen Cronin M.D., [facility] ? cc: Lawrence Rai MD [address] [place] [address] ? Katherine Downs MD [facility] [address] [place] [address] ? Dr. Berman ? This note was dictated with Jazmni Naturally Speaking and may contain some grammatical errors due to limitations of the software. Dexter De León RN, was present in the examination room throughout the encounter.[facility] HospitalPROESSon 93-48-1539Ejuehfg mass conc HNO ID: [id number] Author: Lisa Willams Service: (none) Author Type: [...] Dr. Downs at this time. Lisa Willams APRN.[facility] - AndersonCNOVbere [id number] Office Visit (RADTSA) JOSS WASHINGTON ([id number]) 1950 F Date Time Provider Department 12/04/17 [...] pathologic stage 0 (Tis Nx ?M0), ER-positive, NM-positive, s/p partial mastectomy ? ? INTERVAL HISTORY: [...] M.D., FACRO ? cc: Lawrence Rai MD [address] [place] [id number] ? Katherine Downs MD [facility] [address] [place] [address] [address]. Berman ? This note was dictated with Dragon Naturally Speaking and may contain some grammatical errors due to limitations of the software. Anatoliy Ha MA was present in the examination room throughout the encounter. Referring Provider: FARHEEN CRONIN [[id number]] Allergies As of Date: 12/04/2017 (No Known [...] Encounter Status:Closed by FARHEEN CRONIN MD on 12/04/17[facility] HospitalCNOVSPon [id number] () Office (HEMASA) JOSS WASHINGTON ([id number]) 1950 F Date Time Provider Department 12/04/17 [...] Dr. Downs at this time. Lisa Willams APRN.CHEMICAL DEPENDENCY PROFESSIONAL Referring Provider: FARHEEN CRONIN [[id number]] Allergies As of Date: 12/04/2017 (No Known [...] breast*INVALID FOR* Encounter Status:Closed by LISA WILLAMS CHEMICAL DEPENDENCY PROFESSIONAL on 12/10/17[facility] 18-65-7075Mrczjtu mass concHNO ID: [id number] Author: Farheen Cronin Service: (none) Author Type: Physician Type: Progress Notes Filed: 12/04/2017 1:55 PM Note Text: Radiation Oncology - Follow Up Note PATIENT NAME: Joss Washington PATIENT DIAGNOSIS: DCIS of the Right breast, UIQ, pathologic stage 0 (Tis Nx ?M0), ER-positive, NM-positive, s/p partial mastectomy ? ? INTERVAL HISTORY: [...] M.D., FACRO ? cc: Lawrence Rai MD [address] [place] [phone] ? Katherine Downs MD [facility] [address] [place] [address] ? Dr. Berman ? This note was dictated with Jazmin Naturally Speaking and may contain some grammatical errors due to limitations of the software. Anatoliy Ha MA was present in the examination room throughout the encounter.[facility] 57-68-0744DGTHOnldxo Visit (RADTSA) JOSS WASHINGTON ([id number]) 1950 F Date Time Provider Department 10/30/17 [...] pathologic stage 0 (Tis Nx M0), ER-positive, NM-positive, s/p partial mastectomy ? INTERVAL HISTORY: Mrs. [...] Signed by: Farheen Cronin M.D., FACRO cc: Lawrnece Rai MD [address] [place] [phone] ? Katherine Downs MD [facility] [address] [place] [address] ? Dr. Berman ? This note was dictated with Dragon Naturally Speaking and may contain some grammatical errors due to limitations of the software. Dexter De León RN was present in the examination room throughout the encounter. Referring Provider: FARHEEN CRONIN [[id number]] Allergies As of Date: 10/30/2017 (No Known [...] Encounter Status:Closed by FARHEEN CRONIN MD on 10/30/17NoMiami Valley Hospitalon 34-46-2556Oriehbh mass concHNO ID: [id number] Author: Farheen Cronin Service: (none) Author Type: Physician Type: Progress Notes Filed: 10/30/2017 3:16 PM Note Text: Radiation Oncology - Follow Up Note PATIENT NAME: Joss Washington PATIENT DIAGNOSIS: DCIS of the Right breast, UIQ, pathologic stage 0 (Tis Nx M0), ER-positive, NM-positive, s/p partial mastectomy ? INTERVAL HISTORY: Mrs. [...] examination. Signed by: Farheen Cronin M.D., [facility] cc: Lawrence Rai MD [address] [place] [phone] ? Katherine Downs MD [facility] [address] [place] [address] [address]. Berman ? This note was dictated with Jazmin Naturally Speaking and may contain some grammatical errors due to limitations of the software. Dexter De León RN was present in the examination room throughout the encounter.NormalMercy Health Perrysburg HospitalPROGRESSon 62-89-5418Xndfyoj mass conc HNO ID: [id number] Author: Farheen Cronin Service: (none) Author Type: Physician Type: Progress Notes Filed: 10/17/2017 12:34 AM Note Text: [facility] Radiation Oncology Department RADIATION ONCOLOGY - COMPLETION NOTE PATIENT: FELIXJOSS : 1950 DATES OF TREATMENT: 08/27/2017 to 10/15/2017 DIAGNOSIS: DCIS of the Right breast, UIQ, pathologic stage 0 (Tis Nx M0), ER-positive, NM-positive, s/p partial mastectomy AREA TREATED: Right Breast [...] / JULIETTE 10/16/20179:57 AM cc: Dr. Lawrence DowOhio State East HospitalCNOVon 50-70-7310WZUCMqwpuk Visit (RADTSA) JOSS WASHINGTON ([id number]) 1950 F Date Time Provider Department 10/14/17 [...] the Right?breast, UIQ,?pathologic?stage 0 (Tis Nx M0),?ER-positive, NM-positive, s/p?partial mastectomy ? 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 COURSE: definitive AREA TREATED: [...] radiation treatment as planned. ? Farheen Cronin MD?NormalMercy Health Perrysburg HospitalCNOVon 22-11-9604AKTV Office Visit (RADTSA) JOSS WASHINGTON ([id number]) 1950 F Date Time Provider Department 10/07/17 10:15 AM FARHEEN CRONIN During your visit today, we recorded the following information about you: Blood pressure Weight 142/80 130.6 kg Dexter D eLeón RN, RN 10/07/2017 10:16 AM Signed Status: Post-menopausal. 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 COURSE: definitive AREA TREATED: [...] radiation treatment as planned. ? Farheen Cronin MD?NormalMercy Health Perrysburg HospitalCNOVon 31-18-2821PBHK Office Visit (RADTSA) FELIXJOSS MIX ([id number]) 1950 F Date Time Provider Department 09/30/17 10:15 AM FARHEEN CRONIN During your visit today, we recorded the following information about you: Blood pressure Weight 128/86 130.6 kg Anatoliy Graves, INFORMATION TECHNOLOGY PROJECT MANAGER, CLARA 09/30/2017 10:27 AM Signed Status: Post-menopausal. 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 COURSE: definitive AREA TREATED: [...] radiation treatment as planned. ? Farheen Cronin MD?NormalMercy Health Perrysburg HospitalCNOVon 50-94-7276EQYB Office Visit (RADTSA) JOSS WASHINGTON ([id number]) 1950 F Date Time Provider Department 09/22/17 [...] the Right?breast, UIQ,?pathologic?stage 0 (Tis Nx M0),?ER-positive, NM-positive, s/p?partial mastectomy ? 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 COURSE: definitive AREA TREATED: [...] Continue radiation treatment as planned. ? Jose EscaleraalCBrecksville VA / [facility] and Differentialon 93-71-2203Llc Baso0.03 k/uLNormal0.00-0.10Mer[facility] Health Perrysburg HospitalAbs Mono0.45 k/uLNormal0.00-0.86Mer[facility] Health Perrysburg HospitalAbs Neut5.16 k/uLNormal1.45-7.50 [facility] HospitalBasophils/100 WBC (Bld)0.4 %NormalMercy Health Perrysburg HospitalEosinophils #/vol (Bld)0.23 10*3/uLNormal0.00-0.45Mer[facility] Health Perrysburg HospitalEosinophils/100 WBC (Bld)3.2 %NormalMercy Health Perrysburg Hospital Erythrocyte distribution width Ratio (RBC)15.0 %Cznxio04.5-15.0Mer[facility] HospitalHematocrit Volume Fraction (Bld)39.1 %Kprmhs06.0-46.0[facility] HospitalHemoglobin mass conc (Bld)13.0 g/zAAdmbbo10.5-15.5CProMedica Defiance Regional HospitalvelandLymphocytes #/vol (Bld)1.40 10*3/uLNormal1.00-4.00[facility] HospitalLymphocytes/100 WBC (Bld)19.3 %NormalFlower HospitalH Entitic mass (RBC)30.6 kTFncccw44.0-34.0Flower HospitalHC mass conc (RBC)33.2 g/qEJdwiiz17.5-36.0Flower HospitalV Entitic volume (RBC) 92.0 wODeijyt02.0-100.0[facility] HospitalMonocytes/100 WBC (Bld)6.2 % NormalMercy Health Perrysburg HospitalNeutrophils/100 WBC (Bld)70.9 %NormalMercy Health Perrysburg HospitalPlatelet mean volume Entitic volume (Bld)9.5 fLNormal9.0-12.7 [facility] HospitalPlatelets #/vol (Bld)272 10*3/pWFksokg865-780Pqgjgtalu Clinic ClevelandRBC #/vol (Bld)4.25 10*6/uLNormal3.90-5.20[facility]riners HospitalvelandWBC #/vol (Bld)7.27 10*3/uLNormal3.70-11.00[facility] CNOVon 26-76-1252ZKOJJdjcfj Visit (RADTSA) JOSS WASHINGTON ([id number]) 1950 F Date Time Provider Department 09/18/17 [...] De León RN Referring Provider: FARHEEN CRONIN [[id number]] Allergies As of Date: 09/18/2017 (No Known [...] Notes: >> Dexter Sykes) CLARA De León [facility] Sep 18, 2017 10:01 AM Status: [...] Encounter Status:Closed by DEXTER DE LEÓN on 09/18/17[facility] 21-63-2421ZBVQSlcagf Visit (RADTSA) JOSS WASHINGTON ([id number]) 1950 F Date Time Provider Department 09/16/17 10:15 AM FARHEEN RCONIN During your visit today, we recorded the following information about you: Blood pressure Weight 114/72 130.6 kg Dexter De León RN, RN 09/16/2017 10:53 AM Signed Status: Post-menopausal. 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 COURSE: definitive AREA TREATED: [...] radiation treatment as planned. ? 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 COURSE: definitive AREA TREATED: [...] discomfort progresses requiring intervention. Signed by: Jose NixonCleveland Clinic Lutheran HospitalAugustus 89-40-7854ZLCK Office Visit (RADTSA) JOSS WASHINGTON ([id number]) 1950 F Date Time Provider Department 09/08/17 [...] the Right?breast, UIQ,?pathologic?stage 0 (Tis Nx M0),?ER-positive, NM-positive, s/p?partial mastectomy ? COURSE: definitive AREA TREATED: [...] Encounter Status:Closed by JEM SANTANA MD on 6/21/18[facility] CenterC and Differentialon 60-66-1006Dwa Baso0.03 k/uLNormal<0.11CThe [facility] on above:Performed By: #### CBCDIF ####[place] [address]CRenties[address], [place] [phone] Mono0.45 k/uL Normal<0.87[facility] on above:Performed By: #### CBCDIF ####[place] [address]CRentiesville, [place] [phone] Neut3.74 k/uLNormal1.45-7.50[facility] on above:Performed By: #### CBCDIF ####[place] [address] [address] AvWhitinsville, [place] [phone]/100 WBC (Bld)0.5 %NormalFisher-Titus Medical Center on above:Performed By: #### CBCDIF ####[place] [address] [address]Whit[address], [place] [phone]=5.68 NormalFisher-Titus Medical Center on above:Result Comment: Preliminary result. Interpret with caution. Final results may vary. Results requested and read back by: /09/04/1710/15/1026/OSITO CASTELLONPerformed By: #### CBCDIF ####[place] [address]CRenties[address], [place] [phone] #/vol (Bld)0.23 10*3/uLNormal<0.46[facility] on above: Performed By: #### CBCDIF ####[place] [address]CRenties[address], [place] [phone]/100 WBC (Bld)3.7 %Normal [facility] on above:Performed By: #### CBCDIF ####[place] [address] [place] [phone] 90-9087Erythrocyte distribution width Ratio (RBC)15.5 %High11.5-15.0[facility] on above:Performed By: #### CBCDIF ####[place] [phone] Volume Fraction (Bld)37.1 %Vyijdg85.0-46.0[facility] on above: Performed By: #### CBCDIF ####[place] [phone] mass conc (Bld)12.2 g/dLNormal 11.5-15.5CThe [facility] on above:Performed By: #### CBCDIF ####[place] [phone] 22-4838Lymphocytes #/vol (Bld)1.78 10*3/uLNormal1.00-4.00[facility] on above:Performed By: #### CBCDIF ####[place] [phone]/100 WBC (Bld)28.6 %NormalFisher-Titus Medical Center on above:Performed By: #### CBCDIF ####[place] [phone] Entitic mass (RBC)30.3 cUIwcveu89.0-34.0[facility] on above:Performed By: #### CBCDIF ####[place] [phone] mass conc (RBC) 32.9 g/pGZnipvr05.5-36.0[facility] on above:Performed By: #### CBCDIF ####[place] [phone] Entitic volume (RBC)92.1 cOBzamhx09.0-100.0[facility] on above:Performed By: #### CBCDIF ####[place] [address] [address] AveCLisa V[address] [phone]/100 WBC (Bld)7.2 %NormalGalion Hospitalment on above:Performed By: #### CBCDIF ####[place] [address] [address] AvDaisy [place] [phone]/100 WBC (Bld)60.0 %NormalMercy Health Perrysburg Hospital Comment on above:Performed By: #### CBCDIF ####[address] AvDaisy Ville [phone] mean volume Entitic volume (Bld)9.3 fLNormal9.0-12.7CThe [facility] on above:Performed By: #### CBCDIF ####[place] [address] [address] AvD[address] [place] [phone] #/vol (Bld)285 10*3/jRQzpflx209-661QmtvssfeeFisher-Titus Medical Center on above:Performed By: #### CBCDIF ####[place] [address] [address] [place] [phone] #/vol (Bld)4.03 10*6/uLNormal3.90-5.20[facility] on above:Performed By: #### CBCDIF ####[address] AvDaisy [place] [phone] #/vol (Bld)6.19 10*3/uLNormal3.70-11.00[facility] on above:Performed By: #### CBCDIF ####[place] [address] [address] AvD[address] [place] [phone] 09-04-2017 CNOVOffice Visit (RADTSA) JOSS WASHINGTON ([id number]) 1950 F Date Time Provider Department 09/04/17 [...] De León RN Referring Provider: FARHEEN CRONIN [[id number]] Allergies As of Date: 09/04/2017 (No Known [...] Visit Notes: >> Dexter De León RN [facility] Sep 04, 2017 12:44 PM Status: [...] Encounter Status:Closed by DEXTER DE LEÓN on 09/04/17[facility] 68-83-3056GJLIXstxki Visit (RADTSA) JOSS WASHINGTON ([id number]) 1950 F Date Time Provider Department 09/02/17 [...] pathologic stage 0 (Tis Nx M0), ER-positive, NM-positive, s/p partial mastectomy COURSE: definitive AREA TREATED: [...] Encounter Status:Closed by FARHEEN CRONIN MD on 09/02/17[facility] 01-74-0311Kgvllkw mass concHNO ID: [id number] Author: Farheen Cronin Service: (none) Author Type: Physician Type: Progress Notes Filed: 09/02/2017 1:31 PM Note Text: Radiation Oncology - On Treatment Review (OTR) Note PATIENT NAME: Joss Washington PATIENT DIAGNOSIS: DCIS of the Right breast, UIQ, pathologic stage 0 (Tis Nx M0), ER-positive, NM-positive, s/p partial mastectomy COURSE: definitive AREA TREATED: [...] Continue radiation treatment as planned. Farheen Cronin MDFostoria City Hospital 57-28-6468EMUEMekspv Visit (RADTSA) JOSS WASHINGTON ([id number]) 1950 F Date Time Provider Department 08/27/17 1:30 PM JEM SANTANA During your visit today, we recorded the following information about you: Dexter De León RN, RN 08/27/2017 2:20 PM Signed Status: Post-menopausal. 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 Plan and MU calculations [...] the course of treatment. Signed by: Jose NixonMartins Ferry [facility] NON-RADIOLOGY -NBNRon 10-62-6017AOML CT NON-RADIOLOGY -[facility] - CT Images - Obtained Outside of Imaging Ava [id number] Health Perrysburg HospitalCNCNPATEDon 08-20-2017 CNCNPATEDEducation (RADTSA) JOSS WASHINGTON ([id number]) 1950 F Date Time Provider Department 08/20/17 ANATOLIY HA LPN Reason for Visit: Patient Education [91] Visit Notes: >> Anatoliy Ha RN FriAugust 20, 2017 3:46 PM Status: Signed Radiation Therapy - Patient Education Note PATIENT NAME: Joss Washington PATIENT August 20, 2017 [facility] FACILITY/LOCATION: [facility] READINESS TO [...] need for social work, van service, and burlap man. Was approved? No Signed by: Anatoliy Ha [...] mouth. Encounter Status:Closed by ANATOLIY HA on 08/20/17[facility] Hospitalon 63-52-3964GCBPBqfelc Visit (RADTSA) JOSS WASHINGTON ([id number]) 1950 F Date Time Provider Department 08/20/17 [...] pathologic stage 0 (Tis Nx M0), ER-positive, NM-positive, s/p partial mastectomy. HPI: 67 year old [...] her . 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 COMPLETE REVIEW [...] Farheen Cronin MD cc: Lawrence Rai MD [address] [place] [phone] Katherine Downs MD [facility] [address] [place] [address] Dr. Berman This note was dictated with Radhaon Naturally Speaking and may contain some grammatical errors due to limitations of the software. Referring Provider: KATHERINE DOWNS [[id number]] Allergies As of Date: 08/20/2017 (No Known [...] Encounter Status:Closed by FARHEEN CRONIN MD on 08/20/17[facility] 44-46-6883Vohssxe mass concHNO ID: [id number] Author: Farheen Cronin Service: (none) Author Type: Physician Type: Progress Notes Filed: 08/20/2017 3:39 PM Note Text: Radiation Oncology - New Patient/Consult Note PATIENT NAME: Joss Washington PATIENT REQUESTING PROVIDER: Dr. Kahterine Downs DIAGNOSIS: 67 year old female with DCIS of the Right breast, UIQ, pathologic stage 0 (Tis Nx M0), ER-positive, NM-positive, s/p partial mastectomy. HPI: 67 year old [...] her . 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 COMPLETE REVIEW [...] Farheen Cronin MD cc: Lawrence Rai MD [address] [place] [id number] Katherine Downs MD [facility] [address] [place] [facility] Dr. Berman This note was dictated with Dragon Naturally Speaking and may contain some grammatical errors due to limitations of the software.NormalMercy Health Perrysburg HospitalProtein mass concHNO ID: [id number] Author: Farheen Cronin Service: (none) Author Type: Physician Type: Progress Notes Filed: 08/21/2017 12:34 AM Note Text: MIGEL WASHINGTONRICIA [id number] 08/20/2017 [facility] Radiation Oncology Department SIMULATION NOTE DATE OF SIMULATION: 08/20/2017 THERAPIST: Yuliana Gill MACHINE: In[employer] Simulator DIAGNOSIS: Malignant neoplasm of upper-inner quadrant of right female fcfikvM92.211 AREA: CONTRAST: None Consent in Epic: Yes [...] Signed Farheen Cronin M.D. / NRS 08/20/20173:59 [facility]ullAb[facility] anderson concHNO ID: [id number] Author: Farheen Cronin Service: (none) Author Type: Physician Type: Progress Notes Filed: 08/27/2017 12:34 AM Note Text: JOSS WASHINGTON [id number] 08/20/2017 [facility] Department of Radiation Oncology Treatment Planning [...] DVH. Electronically Signed Farheen Cronin M.D. 08/26/20171:02 PMNUniversity Hospitals Health SystemCNOVSPon 83-07-3555OYKISLQqxal (SP) Office (HEMACL) JOSS WASHINGTON ([id number]) 1950 F Date Time Provider Department 08/14/17 [...] Katherine Downs MD Referring Provider: GEREMIAS BERMAN [[id number]] Allergies As of Date: 08/14/2017 (No Known Allergies) Date Reviewed: 08/14/2017 Reviewed by: Iesha Luis - Fully Assessed Primary Visit Diagnosis:Ductal carcinoma in situ (DCIS) of right breast [D05.11] Order(s):RAD/ONC CONSULT [9037] Order #: [id number]: 1 Prescriptions as of 08/14/2017 Sig: VENTOLIN [...] Encounter Status:Closed by KATHERINE DOWNS MD on 08/14/17[facility] 96-17-4524Pnewlnh mass concHNO ID: [id number] Author: Katherine Downs Service: (none) Author Type: [...] is needed. - RAD/ONC CONSULT Katherine Downs MDOhioHealth Dublin Methodist HospitalUS-US GUIDE LOCAL BREAST RT IMPORTon 97-32-5819VA-US GUIDE LOCAL BREAST RT IMPORTImages were obtained outside of [facility] [id number]_IDCSIACNNUniversity Hospitals Health SystemMAMM OUTSIDE DICOM IMPORT -NBNRon 81-14-3001JFOS OUTSIDE DICOM IMPORT -NBNRImages were obtained outside of [facility] [id number]_IDCSIACNNUniversity Hospitals Health System Encounters Encounter DateEncounter TypeCare ProviderFacilityStart: 01-05-2025 End: 39-19-4108gjpagfzaurGJYOXSTSt. John of God Hospitaltart: 08-06-2024 End: 32-39-5585rrqpwfzjdlVECPXKettering Health Miamisburgtart: 05-07-2024 End: 10-05-7797gzkclrtcvwQWZRMKettering Health Miamisburgtart: 03-16-2022 End: 52-69-8633cdqvmccvktGI LAWRENCE HOYFacility:P2Rqoed: 21-92-0873xwgcykhsbgHM LAWRENCE HOYFacility:S2Fyrzn: 02-08-2022 End: 85-49-0954sflmdbdhvwQI LAWRENCE HOYFacility:D7Oizwg: 11-30-2021 End: 92-08-3870cmihglxjolCG LAWRENCE HOYFacility:B6Jrfsr: 06-11-2018 End: 58-63-5849Ntmtvli encounter procedureFARHEEN ARVIZUMercy Health Perrysburg HospitalStart: 02-12-2018 End: 32-88-7325Qhapuof encounter procedureFARHEEN ARVIZUMercy Health Perrysburg HospitalStart: 12-04-2017 End: 34-16-4051Koecbim encounter procedureHOLJACOB (CHEMICAL DEPENDENCY PROFESSIONAL) [facility]: 10-30-2017 End: 38-25-4906Aubswep encounter procedureFARHEEN ARVIZUGalion Community Hospital: 10-15-2017 End: 69-78-1471Glyxarq encounter procedureKATHERINE [facility]: 10-14-2017 End: 85-58-8725Uwlfgqc encounter procedureFARHEEN BARBOSACleveland Clinic [facility]: 10-13-2017 End: 70-75-6409Vxclawm encounter procedureJAORIANA [facility]: 10-09-2017 End: 65-91-0509Suatbes encounter procedureJAORIANA [facility]: 10-08-2017 End: 20-63-5959Uijckql encounter procedureJAORIANA [facility]: 10-07-2017 End: 75-09-5869Zmbeqso encounter procedureFARHEEN ARVIZUGalion Community Hospital: 10-06-2017 End: 92-53-8120Bkasyjr encounter procedureJAORIANA [facility]: 10-03-2017 End: 42-73-3641Mjwnpep encounter procedureJAORIANA [facility]: 10-02-2017 End: 27-03-9076Twulnuw encounter procedureJAORIANA [facility]: 09-30-2017 End: 69-23-2626Bryztgh encounter procedureFARHEEN ARVIZUGalion Community Hospital: 09-29-2017 End: 07-30-9740Ftceycy encounter procedureJAORIANA [facility]: 09-26-2017 End: 03-53-3028Kmazpye encounter procedureJAORIANA [facility]: 09-25-2017 End: 14-86-1250Eodzxtv encounter procedureJAORIANA Memorial [facility]: 09-24-2017 End: 25-69-1680Sklyrun encounter procedureJAORIANA [facility]: [facility]2017 End: 03-37-4390Bphevkl encounter procedureJAORIANA [facility]: 09-22-2017 End: 58-61-9093Wgytlqf encounter procedureFARHEEN ARVIZUGalion [facility]: 09-19-2017 End: 18-64-1163Faiqtru encounter procedureKATHERINE [facility]: 09-18-2017 End: 08-60-8659Etpstjf encounter procedureKHKHANHAdrián Celeste LUIS MANUELROMINAMer[facility] HospitalSt[facility]: 09-17-2017 End: 11-45-6933Zleltpu encounter procedureKATHERINE E[facility]NETwin [facility]: 09-16-2017 End: 51-83-9746Igaloal encounter procedureKHKHANHAdrián Celeste LUH[facility]AC[facility]St[facility]: 09-15-2017 End: 75-80-4171Obccblc encounter procedureJAORIANA [facility]: 09-12-2017 End: 98-45-9826Ixyulfc encounter procedureJAORIANA [facility]: 09-11-2017 End: 17-66-8988Iayvfpq encounter procedureKATHERINE [facility]: 09-10-2017 End: 09-16-8113Oihbisp encounter procedureKATHERINE [facility]: 09-09-2017 End: 96-79-2528Qzalukp encounter procedureJAORIANA [facility]: 09-08-2017 End: 53-37-4160Nckpmzu encounter procedureSACAROLINE [facility] Start: 09-05-2017 End: 98-30-9010Zohukfg encounter procedureJAORIANA [facility]: 09-04-2017 End: 69-38-4809Yxnbzro encounter procedureKHKHANHAdrián Celeste LU[facility] MAN[facility]ELROMINAM[facility]St[facility]: 09-03-2017 End: 88-27-7622Utlnzlm encounter procedureKATHERINE [facility]: 09-02-2017 End: 08-54-4822Lraxtys encounter procedureKHMELODY Celeste LUHMer[facility] HospitalStluc[facility]: 09-01-2017 End: 41-67-3008Wyvrxhm encounter procedureJAORIANA [facility]: 08-29-2017 End: 89-05-0884Hdheeoe encounter procedureJAORIANA [facility]: 08-28-2017 End: 33-49-1119Gcsrmzl encounter procedureJAORIANA [facility]: 08-27-2017 End: 24-88-7264Fimyysk encounter procedureSACAROLINE [facility] Start: 08-20-2017 End: 83-16-7806Dljuemu encounter procedureFARHEEN GalvanOhioHealth Berger HospitalStart: 08-14-2017 End: 60-23-4491Soylbpx encounter procedureKATHERINE BradfordOhioHealth Berger Hospital Payers DatePayer CategoryPayerPolicy [id number] 1960Medicare [id number] [id number] Progress note 08-06-2024 Note Date & [id number] [facility] Reason for [...] and right breast cancer Patient presented to [facility] on 03/18/2024 with vision changes which [...] Holter monitor 03/19/2024 Review (more content not included)...[facility] Progress note 05-07-2024 Note Date & [id number] [facility] Reason for cardiology consult: TIA Chief Complaint: dyspnea on exertion HPI: Joss Washington is a 73 y.o. female with history of hypertension, hyperlipidemia, recent TIA, and right breast cancer Patient presented to [facility] on 03/18/2024 with vision changes which [...] has no past medical history of Stroke ([facility] Surgical History She has a [...] Recent TIA, no ische (more content not included)...[facility] Summary Purpose Family History No Family History Records FoundNo Family History Records FoundNo Family History Records FoundNo Family History Records Found Advance Directives No Advanced Directives Records FoundNo Advanced Directives Records FoundNo Advanced Directives Records FoundNo Advanced Directives Records Found Additional Source Comments INFORMATION SOURCE (unrecogn ized section and content) DATE CREATED AUTHOR 06/15/2018 [facility] DATE CREATED AUTHOR AUTHOR'S ORGANIZ ATION 07/26/2019 [facility] DATE CREATED AUTHOR AUTHOR'S ORGANIZ ATION 03/22/2022 [facility] [place] DATE CREATED AUTHOR AUTHOR'S ORGANIZ ATION 01/10/2025 [facility] FOR RECORDS PERTAINING TO PATIENTS WHO [...] BE BASED ON THE PRIMARY CLINICAL RECORDS. [facility] [employer] [facility] provides no warranty or guarantee of the accuracy or completeness of information in this document.
== END 2025-03-02 08:17 | disposition home or self-care (01) ==
LOC: MAMMO 08:16
PROVIDERS: PCP Family Medicine; Visit Provider Family Medicine
DX: Z12.31 Encounter for screening mammogram for malignant neoplasm of breast (principal); Z80.3 Family history of malignant neoplasm of breast; Z80.1 Family history of malignant neoplasm of trachea, bronchus and lung; Z80.8 Family history of malignant neoplasm of other organs or systems
CPT/HCPCS: 77063; 77067